=== PATIENT | male | born 1960 | race Caucasian/White ===

== ENCOUNTER → 2017-11-22 07:21 | Outpatient (CLI) | payer OTHER, SELFPAY ==
[2017-11-22 09:26] LABS: AST(SGOT) 21 U/L (15-37); Alanine Aminotransfer ALT/SGPT 28 U/L (12-78); Albumin, Serum 3.7 g/dL (3.4-5.0); Alkaline Phosphatase 93 U/L (45-117); Bilirubin, Direct 0.23 mg/dL (0.00-0.30); Cholesterol 158 mg/dL (200); Globulin 3.8 g/dL (2.2-4.2); High Density Lipoprotein 65 mg/dL; Protein, Total 7.5 g/dL (6.4-8.2); Triglycerides 61 mg/dL; Very Low Density Lipoprotein 12 mg/dL (5-40)
== END ==
PROVIDERS: Nurse Practitioner Family; Family Provider Family Medicine; PCP Family Medicine; Visit Provider Internal Medicine Cardiovascular Disease
DX: I25.810 Atherosclerosis of coronary artery bypass graft(s) without angina pectoris (principal); Z95.1 Presence of aortocoronary bypass graft; I10 Essential (primary) hypertension; E78.5 Hyperlipidemia, unspecified; Z79.899 Other long term (current) drug therapy
CPT/HCPCS: 36415; 80061; 80076

== ENCOUNTER → 2018-05-23 07:15 | Outpatient (CLI) | payer OTHER, SELFPAY ==
[2018-05-23 09:11] LABS: AST(SGOT) 23 U/L (15-37); Alanine Aminotransfer ALT/SGPT 26 U/L (16-61); Albumin, Serum 3.9 g/dL (3.2-5.0); Alkaline Phosphatase 86 U/L (45-117); Bilirubin, Direct 0.21 mg/dL (0.00-0.30); Cholesterol 164 mg/dL (200); High Density Lipoprotein 64 mg/dL; Protein, Total 7.9 g/dL (6.4-8.2); Triglycerides 50 mg/dL; Very Low Density Lipoprotein 10 mg/dL (5-40)
== END ==
PROVIDERS: Family Provider Family Medicine; PCP Family Medicine; Visit Provider Nurse Practitioner Family
DX: E78.5 Hyperlipidemia, unspecified (principal); Z79.899 Other long term (current) drug therapy
CPT/HCPCS: 36415; 80061; 80076

== ENCOUNTER → 2019-01-23 10:09 | Outpatient (CLI) | payer OTHER, SELFPAY ==
[2018-09-08 14:42] VITALS: BMI 22.2
--- NOTE | 2019-01-23 10:13 | RAD_ITS ---
STUDY: X-RAY - ABDOMEN/PELVIS REASON FOR EXAM: Male, 58 years old. Stool urgency with bloating for 2 weeks TECHNIQUE: Supine COMPARISON: 11/17/2015 FINDINGS: Surgical clips project over the cardiac silhouette. There is an unremarkable bowel gas pattern. There is [id number] fecal retention of the right more than left colon. There is no demonstrated free abdominal air. The visualized liver, spleen and kidneys are grossly normal in size and morphology. Vascular calcifications are noted. Similar levoscoliosis of the lumbar spine. RAD/Abdomen Single View IMPRESSION: Mild to moderate fecal retention. Nonobstructive bowel gas pattern. Electronically Signed: Ruiz Maciel MD at 16:34 EDT , Service support ,
== END ==
PROVIDERS: Family Provider Family Medicine; PCP Family Medicine; Referring Provider Family Medicine; Visit Provider Family Medicine
DX: R15.2 Fecal urgency (principal)
CPT/HCPCS: 74018

== ENCOUNTER → 2019-03-06 07:20 | Outpatient (CLI) | payer OTHER, SELFPAY ==
[2019-02-26 08:56] VITALS: BMI 21.2
[2019-03-06 09:10] LABS: AST(SGOT) 22 U/L (15-37); Alanine Aminotransfer ALT/SGPT 25 U/L (16-61); Albumin, Serum 3.7 g/dL (3.2-5.0); Alkaline Phosphatase 78 U/L (45-117); Bilirubin, Direct 0.24 mg/dL (0.00-0.30); Cholesterol 148 mg/dL (200); Globulin 3.6 g/dL (2.2-4.2); High Density Lipoprotein 62 mg/dL; Protein, Total 7.3 g/dL (6.4-8.2); Triglycerides 60 mg/dL; Very Low Density Lipoprotein 12 mg/dL (5-40)
== END ==
PROVIDERS: Family Provider Family Medicine; PCP Family Medicine; Referring Provider Internal Medicine Cardiovascular Disease; Visit Provider Internal Medicine Cardiovascular Disease
DX: E78.5 Hyperlipidemia, unspecified (principal)
CPT/HCPCS: 36415; 80061; 80076

== ENCOUNTER → 2019-03-11 06:06 | Outpatient (CLI) | payer OTHER, SELFPAY ==
[2019-02-26 08:56] VITALS: BMI 21.2
--- NOTE | 2019-03-11 10:01 | STRESSREP ---
Stress Test Report Date: 03-11-19 Procedure: Exercise tolerance test/imaging study Indications: CAD; CABG Consent: Per the patient Procedure: The patient exercised on a Luis protocol for 6 minutes completing Stage II achieving a peak heart rate of 164 bpm (101 % predicted maximal heart rate) with a peak blood pressure 194/72 mmHg and a peak MET capacity of 7 METs. The baseline ECG demonstrated normal sinus rhythm. The peak exercise ECG demonstrated no obvious ECG changes. There was a rare PVC during exercise and a rare PAC during recovery. The functional capacity was considered average. There was no complaint of chest discomfort during exercise or recovery. The examination was discontinued secondary to leg discomfort/back discomfort. Impression: 1. Technically adequate (percent predicted maximal heart rate greater than 85%) exercise tolerance test 2. Peak exercise ECG with no obvious ECG changes 3. There was a rare PVC during exercise and a rare PAC during recovery 4. Nuclear images pending Myocardial perfusion imaging study: Technique: The patient was injected with 11.4 mCi of technetium 99m Cardiolite and subsequently rest SPECT Cardiolite nuclear imaging was obtained in the horizontal long, vertical long, and short axis views. The patient exercised on a Luis protocol for 6 minutes completing Stage II achieving a peak heart rate of 164 bpm (101 % predicted maximal heart rate) with a peak blood pressure 194/72 mmHg and a peak MET capacity of 7 METs. The patient was injected with 33.1 mCi of technetium 99m Cardiolite and subsequently stress SPECT Cardiolite nuclear imaging was obtained in the horizontal long, vertical long, and short axis views. A gated Cardiolite study at peak stress was obtained. Interpretation: Rest and stress SPECT Cardiolite nuclear imaging status post realignment, normalization, and attenuation correction, demonstrates the appearance of relative uniform tracer uptake and myocardial perfusion appearing within normal limits. There is end systolic thickening and brightening. The gated Cardiolite study demonstrates myocardial thickening and inward wall motion. The reported LVEF is 64 %. Impression: 1. Rest and stress SPECT Cardiolite nuclear imaging demonstrate relative uniform tracer uptake and myocardial perfusion appearing within normal limits. 2. The gated Cardiolite study reports an LVEF of 64 %. This note was generated with [employer] software. It may contain incorrect words, spelling, and punctuation that were not noted in checking the note before signing.
--- NOTE | 2019-03-11 10:04 | STRESSREP_ITS ---
Stress Test Report Date: 03-11-19 Procedure: Exercise tolerance test/imaging study Indications: CAD; CABG Consent: Per the patient Procedure: The patient exercised on a Luis protocol for 6 minutes completing Stage II achieving a peak heart rate of 164 bpm (101 % predicted maximal heart rate) with a peak blood pressure 194/72 mmHg and a peak MET capacity of 7 METs. The baseline ECG demonstrated normal sinus rhythm. The peak exercise ECG demonstrated no obvious ECG changes. There was a rare PVC during exercise and a rare PAC during recovery. The functional capacity was considered average. There was no complaint of chest discomfort during exercise or recovery. The examination was discontinued secondary to leg discomfort/back discomfort. Impression: 1. Technically adequate (percent predicted maximal heart rate greater than 85%) exercise tolerance test 2. Peak exercise ECG with no obvious ECG changes 3. There was a rare PVC during exercise and a rare PAC during recovery 4. Nuclear images pending Myocardial perfusion imaging study: Technique: The patient was injected with 11.4 mCi of technetium 99m Cardiolite and subsequently rest SPECT Cardiolite nuclear imaging was obtained in the horizontal long, vertical long, and short axis views. The patient exercised on a Luis protocol for 6 minutes completing Stage II achieving a peak heart rate of 164 bpm (101 % predicted maximal heart rate) with a peak blood pressure 194/72 mmHg and a peak MET capacity of 7 METs. The patient was injected with 33.1 mCi of technetium 99m Cardiolite and subsequently stress SPECT Cardiolite nuclear imaging was obtained in the horizontal long, vertical long, and short axis views. A gated Cardiolite study at peak stress was obtained. Interpretation: Rest and stress SPECT Cardiolite nuclear imaging status post realignment, normalization, and attenuation correction, demonstrates the appearance of relative uniform tracer uptake and myocardial perfusion appearing within normal limits. There is end systolic thickening and brightening. The gated Cardiolite study demonstrates myocardial thickening and inward wall motion. The reported L VEF is 64 %. Impression: 1. Rest and stress SPECT Cardiolite nuclear imaging demonstrate relative uniform tracer uptake and myocardial perfusion appearing within normal limits. 2. The gated Cardiolite study reports an LVEF of 64 %. This note was generated with [employer] software. It may contain incorrect words, spelling, and punctuation that were not noted in checking the note before signing.
== END ==
PROVIDERS: Family Provider Family Medicine; PCP Family Medicine; Referring Provider Nurse Practitioner Family; Visit Provider Nurse Practitioner Family
DX: I25.10 Atherosclerotic heart disease of native coronary artery without angina pectoris (principal); I10 Essential (primary) hypertension; E78.5 Hyperlipidemia, unspecified; Z95.1 Presence of aortocoronary bypass graft
CPT/HCPCS: 78452; 93017; A9500; A4216

== ENCOUNTER → 2019-09-11 07:27 | Outpatient (CLI) | payer OTHER, SELFPAY ==
[2019-02-26 08:56] VITALS: BMI 21.2
[2019-09-11 08:26] LABS: AST(SGOT) 23 U/L (15-37); Alanine Aminotransfer ALT/SGPT 31 U/L (16-61); Albumin, Serum 3.8 g/dL (3.2-5.0); Alkaline Phosphatase 101 U/L (45-117); Bilirubin, Direct 0.19 mg/dL (0.00-0.30); Cholesterol 165 mg/dL (200); Globulin 3.9 g/dL (2.2-4.2); High Density Lipoprotein 64 mg/dL; Protein, Total 7.7 g/dL (6.4-8.2); Triglycerides 63 mg/dL; Very Low Density Lipoprotein 13 mg/dL (5-40)
== END ==
PROVIDERS: Family Provider Family Medicine; PCP Family Medicine; Referring Provider Internal Medicine Cardiovascular Disease; Visit Provider Internal Medicine Cardiovascular Disease
DX: E78.5 Hyperlipidemia, unspecified (principal)
CPT/HCPCS: 36415; 80061; 80076

== ENCOUNTER 2019-11-02 08:27 | Inpatient (IN) | payer OTHER, SELFPAY ==
[2019-09-16 11:38] VITALS: BMI 21.2
[2019-11-02] VITALS (10 sets, daily range): BP systolic 134–152; BP diastolic 72–89; PULSE 65–94; RESP 16–18; TEMP 36.5–36.9; O2SAT 96–98; BMI 20.7; BMI 20.8
--- NOTE | 2019-11-02 08:41 | ED.DCSUM_ITS ---
History of Present Illness Chief Complaint: Abd Pain Informant: Patient, Significant Other Onset: Days - Illness started 3 to 4 days ago. Context: Sudden Onset Timing: Continuous Quality: Subjective fever, chills, shortness of breath, cough and N/V Location: Home Current Severity: Mild Maximum Severity: Moderate Worsened by: Nothing Relieved by: Nothing Associated Symptoms: Lightheadedness, thirst and increased urine output Narrative: Patient is a 59-year-old male who presents with fever and chills that started 3 to 4 days ago. He reports nonproductive dry cough. He also reports shortness of breath at rest. He denies chest pain of any type including pleuritic. He states he had 3 bowel movements yesterday and did have a bowel movement today. He is not noted a change in color or consistency. States he is not going is much since he has not eaten in the last 4 days. He did report light sensitivity. Denies headache. Denies neck pain or neck stiffness. Does report nasal congestion. Denies any auditory symptoms. He denies dysuria or hematuria. He does have chronic low back pain. He believes he has lost 3 to 4 pounds over the last 4 days. states he has been losing weight gradually since bypass surgery 11 years ago. He reports weakness and fatigue. He denies intolerance to any type of food. He denies hematemesis, melena hematochezia. He denies history of bowel obstruction. Prior similar symptoms: No Recent Illness/Hospitalization: No - Past Medical History (1) COPD (chronic obstructive pulmonary disease) Status: Chronic (2) Essential hypertension Status: Chronic (3) Hyperlipidemia Status: Chronic (4) S/P CABG x 4 Status: Chronic Comment: 01/11/2010 KNOTT to LAD, EDYTA insitu to the RCA and SVG to DX, [facility] per Dr. Hernandez Past Medical History - Allergies and Home Meds Allergies/Adverse Reactions: Allergies ibuprofen [From Advil] Adverse Reaction (Intermediate, Verified 11/02/19 08:28) SOB Primary Care Physician: Rick Gaffney DO [Primary Care Provider] - Prior records reviewed: Yes Surgical History: coronary bypass surgery, - - Recent right wrist surgery Lives: Spouse/ Significant Other Smoking Status: Former smoker Alcohol: None Drugs: None Review of Systems General: Reports: Chills, Fever, Malaise, Subjective, Sweats, Weight loss Eyes: Denies: Visual changes - bilaterally, Blurred Vision - bilaterally ENT: Reports: Rhinorrhea. Denies: Sore throat Cardiovascular: Reports: Heart racing. Denies: Chest pain, Palpitations Respiratory: Reports: Dyspnea, Cough. Denies: Sputum, Dyspnea on exertion, Orthopnea, Paroxysmal nocturnal dyspnea Gastrointestinal: Reports: Abdominal pain, Nausea, Vomiting. Denies: Diarrhea, Constipation, Melena, Hematochezia Genitourinary: Reports: Frequency. Denies: Dysuria, Hematuria Musculoskeletal: Reports: Back pain. Denies: Myalgias, Arthralgias, Neck pain, Swelling, Extremity Pain, -, - Skin: Denies: Rash, Wounds Neurological: Denies: Headache, Weakness, Numbness Hematologic: Denies: Easy bruising, Easy bleeding Physical Exam Vital Signs/Narrative: Vital Signs Temp Pulse Resp BP Pulse Ox 11/02/19 08:29 97.7 F L 80 17 134/89 H 98 Inital Vital Signs reviewed: Yes General: Well nourished, Well developed, No Acute Distress, - - Camargo appears ill and very thin. Head: Normocephalic, Atraumatic Eyes: Perrl, EOMI. Negative for: Pale conjunctiva, Scleral icterus ENT: TM's clear, Dry mucous membranes, Nasal congestion. Negative for: No rh inorrhea, Sinus tenderness Neck: Supple, Nontender, No lymphadenopathy, No JVD Cardiovascular: Regular rate, Regular rhythm, No murmurs, Normal S1, Normal S2 Respiratory: CTA bilaterally, Chest nontender, Diminished Abdomen: Soft, Nontender, Nondistended - There is tympany to percussion., Normal bowel sounds, No masses. Negative for: Hepatomegaly, Splenomegaly, Mass, Pulsatile mass Back: Nontender, Normal Inspection Extremities: Nontender, No edema Skin: Normal color, No rash, No Trauma, - - Jennifer refill is delayed.. Negative for: Cyanosis, Diaphoresis, Jaundice Neurological: Alert, Oriented x3, Cranial nerves II-XII grossly intact, Normal Strength, Normal Sensation Psychological: Normal affect Diagnostic/Tx/Re-eval Impressions Chest X-Ray 11/02/19 09:05 IMPRESSION: Hyperinflation. No acute abnormality is seen. Electronically Signed: Johnson Dover, at 9:28 EST , Service support , 11/02/19 09:05 Chest PA and Lateral [RAD] Stat Laboratory Results 11/02/19 11/02/19 11/02/19 08:45 08:45 08:45 WBC 5.7 RBC 4.80 Hgb 15.3 Hct 42.7 MCV 89.0 MCH 31.9 MCHC 35.8 RDW Std Deviation 38.2 RDW Coeff of Murphy 11.8 Plt Count 198 MPV 9.8 Immature Gran % (Auto) 0.700 Neut % (Auto) 71.9 H Lymph % (Auto) 17.1 L Kent % (Auto) 9.9 Eos % (Auto) 0.2 Baso % (Auto) 0.2 Absolute Neuts (auto) 4.1 Absolute Lymphs (auto) 0.98 Nucleated RBC % 0 Sodium 119 L* Potassium 3.5 Chloride 85 L Carbon Dioxide 28.0 Anion Gap 6 BUN 7 Creatinine 0.84 Estim Creat Clear Calc 86.90 Est GFR (MDRD) Af Amer 119 Est GFR (MDRD) Non-Af 99 BUN/Creatinine Ratio 8.3 L Glucose 105 Serum Osmolality Lactic Acid 1.0 Calcium 9.2 Total Bilirubin 0.50 AST 28 ALT 31 Alkaline Phosphatase 111 Total Protein 8.2 Albumin 4.1 Globulin 4.1 Albumin/Globulin Ratio 1.0 TSH Cortisol 11/02/19 11/02/19 11/02/19 08:45 08:45 08:45 WBC RBC Hgb Hct MCV MCH MCHC RDW Std Deviation RDW Coeff of Murphy Plt Count MPV Immature Gran % (Auto) Neut % (Auto) Lymph % (Auto) Kent % (Auto) Eos % (Auto) Baso % (Auto) Absolute Neuts (auto) Absolute Lymphs (auto) Nucleated RBC % Sodium Potassium Chloride Carbon Dioxide Anion Gap BUN Creatinine Estim Creat Clear Calc Est GFR (MDRD) Af Amer Est GFR (MDRD) Non-Af BUN/Creatinine Ratio Glucose Serum Osmolality 247 L Lactic Acid Calcium Total Bilirubin AST ALT Alkaline Phosphatase Total Protein Albumin Globulin Albumin/Globulin Ratio TSH 0.82 Cortisol 31.00 H Osmolarity is pending. Since patient is symptomatic with a sodium of 119 hospitalist was paged for admission to the hospital. If urine osmolarity is low patient will need work-up for SIADH. - Medical Decision Making Patient reports cough, fever chills and malaise will obtain chest x-ray to assess for lower lobe pneumonia. Since patient is having bowel movements and passing gas doubt partial bowel obstruction. Abdominal exam is benign, as well. CBC was obtained to assess for anemia with reported weight loss night sweats for some time. Conference of metabolic panel to assess liver enzymes and specifically alkaline phosphatase as well as electrolytes and renal function. Because of the poor perfusion he received 1 L of normal saline wide open and 4 mg of Zofran IV push for his main complaint of nausea and vomiting. Differential diagnosis viral illness, lower lobe pneumonia, with increased thirst and urination need to entertain possibility of new onset diabetes. Informed by his nurse that the sodium is 119. Patient is not on a diuretic. Need to evaluate for SIADH and other causes of hyponatremia. Since patient complains of abdominal pain fatigue orthostatic symptoms has poor perfusion Lea's needs to be considered in the differential. By that patient is not on diuretic. He states he drank half a gallon of water yesterday. states is not uncommon for him to drink that much water. He states he does not drink pop etc. He also reports having 1 cup of coffee in the morning. ED Disposition - Plan for ED Patient: Disposition: Acute Care Hospital [facility] Diagnosis: Hyponatremia with decreased serum osmolality Referrals: Rick Gaffney DO [Primary Care Provider] -
[2019-11-02 08:56] LABS: Absolute Lymphocyte Count 0.98 X10^3/uL (0.83-4.51); Absolute Neutrophil Count 4.1 X10^3/uL (2.0-7.7); Basophil# 0.01 X10^3/uL; Basophil% 0.2 % (0-1); Eosinophil# 0.01 X10^3/uL; Eosinophils% 0.2 % (0-5); Hematocrit 42.7 % (40-54); Hemoglobin 15.3 g/dL (13.0-16.5); Lymphocyte # 0.98 X10^3/ul (4.0); Lymphocyte % 17.1 % (19-41); Mean Corp Hgb Conc 35.8 g/dL (32-36); Mean Corpuscular Hgb 31.9 pg (27.0-32.0); Mean Platelet Vol. 9.8 fl (6.2-12.0); Monocyte# 0.57 X10^3/uL; Monocyte% 9.9 % (0-10); NRBC Flagged by Analyzer 0 % (0-5); Neutrophil # 4.13 X10^3/uL (2.7-7.7); Neutrophil % 71.9 % (47-70); Platelet Count 198 K/mm3 (150-450); RBC Distribution Width CV 11.8 % (11.6-14.6); RBC Distribution Width SD 38.2 fl (35.1-43.9); White Blood Count 5.7 K/mm3 (4.4-11.0)
[2019-11-02] MEDS: 0.9% Normal Saline 1,000 ML 1000 ML IV (09:00)
[2019-11-02] MEDS: Ondansetron 4 MG/2 ML Vial IV ×2 (09:00→18:14)
--- NOTE | 2019-11-02 09:05 | RAD_ITS ---
STUDY: X-RAY CHEST REASON FOR EXAM: Male, 59 years old. NOT FEELING WELL FOR 6 DAYS PER PT -- ABD PAIN, N/V, FATUGUE TECHNIQUE: PA and lateral views of the chest. COMPARISON: Comparison is made with prior examination dated September 28, 2013. FINDINGS: Hyperinflation. Decreased bronchovascular markings in both lungs suggestive of a emphysema. Stable mild scarring at the lung bases. Stable blunting of the right costophrenic angle. Sternal cerclage wires and vascular clips are present from a prior sternotomy and coronary artery bypass graft procedure (CABG). Normal mediastinum and [place]. Normal visualized pulmonary arteries. There is atherosclerotic calcification of the aortic arch with tortuosity. There are diffuse degenerative changes of the visualized thoracic spine. Normal visualized ribs, clavicles, and shoulders. There is no demonstrated abnormality of the visualized soft tissue structures of the upper abdomen. RAD/Chest PA and Lateral IMPRESSION: Hyperinflation. No acute abnormality is seen. Electronically Signed: Johnson Dover, at 9:28 EST , Service support ,
[2019-11-02 09:22] LABS: AST(SGOT) 28 U/L (15-37); Alanine Aminotransfer ALT/SGPT 31 U/L (16-61); Albumin, Serum 4.1 g/dL (3.2-5.0); Alkaline Phosphatase 111 U/L (45-117); Anion Gap 6 (5-15); BUN 7 mg/dL (7-18); BUN/Creat Ratio 8.3 RATIO (10-20); Calcium,Total 9.2 mg/dL (8.5-10.1); Chloride 85 mmol/L (98-107); Creatinine, Serum 0.84 mg/dL (0.70-1.30); EST Glomerular Filtration Rate 99 mL/min (>60); Est Glom Filt Rate - Afr Amer 119 mL/min (>60); Globulin 4.1 g/dL (2.2-4.2); Glucose 105 mg/dL (74-106); Potassium 3.5 mmol/L (3.5-5.1); Protein, Total 8.2 g/dL (6.4-8.2); Sodium Level 119 mmol/L (136-145)
[2019-11-02 10:06] LABS: Thyroid Stim Hormone (TSH) 0.82 uIU/mL (0.358-3.74)
[2019-11-02 10:09] LABS: Osmolality, Serum 247 mOsm/KG (275-295)
--- NOTE | 2019-11-02 10:37 | NURSING ---
DR CEDILLO FOR DR AGRAWAL
--- NOTE | 2019-11-02 10:40 | NURSING ---
PCU HYPONATREMIA SYMPTOMATIC ASHELFAH
--- NOTE | 2019-11-02 11:50 | HP.PCM_ITS ---
Problem List (1) Hyponatremia with decreased serum osmolality Status: Acute (2) Hyperlipidemia Status: Chronic Qualifiers: Hyperlipidemia type: unspecified Qualified Code(s): E78.5 - Hyperlipidemia, unspecified (3) S/P CABG x 4 Status: Chronic Comment: 01/11/2010 KNOTT to LAD, EDYTA insitu to the RCA and SVG to DX, SVG to [facility] per Dr. Hernandez (4) Atherosclerotic heart disease of [place] coronary artery without angina pectoris Status: Chronic Qualifiers: [place] vs. transplanted heart: [place] heart Qualified Code(s): I25.10 - Atherosclerotic heart disease of [place] coronary artery without angina pectoris Comment: 01/11/2010 KNOTT to LAD, EDYTA insitu to the RCA and SVG to DX, SVG to [facility] per Dr. Hernandez History of Present Illness Date of Admission: 11/02/19 Chief Complaint: Weakness, fatigue The patient is a 59 year old M patient with past medical history as mentioned above presented to the emergency room because of weakness and fatigue as well as nausea and vomiting. His illness started around 6 days ago with mainly weakness, generalized, has been sleeping more than 15 hours a day, not able to do usual daily activities and it has been progressive. Since yesterday, he started having vague abdominal pain, described as mild ache, generalized, very mild, associated with nausea and vomiting as well as poor appetite and without aggravating or relieving factors. Patient's mentioned that he has been drinking too much water, he drinks around 1 gallon of water every day. He denied constipation or diarrhea. He denied fever or chills. He denied chest pain or shortness of breath. He denied personal or family history of cancer. He denied drinking alcohol. In the emergency department, his vital signs were stable. His routine blood work was remarkable for sodium of 119, otherwise normal. LFT was unremarkable. Lactic acid was normal. TSH was normal. Serum cortisol level was 31 which is elevated. He is being admitted for acute hyponatremia for evaluation and treatment. Past Medical History Past Medical History (Chronic Problems): Chronic Problems (Last Updated 11/02/19 @ 10:59 by Didier Schofield MD) Essential hypertension (Chronic) COPD (chronic obstructive pulmonary disease) (Chronic) Hyperlipidemia (Chronic) History of left heart catheterization (Chronic) 01/11/[address] Blair @ [facility]>CABG S/P CABG x 4 (Chronic ~01/11/10) 01/11/2010 KNOTT to LAD, EDYTA insitu to the RCA and SVG to DX, SVG to [facility] per Dr. Hernandez Atherosclerotic heart disease of [place] coronary artery without angina pectoris (Chronic) 01/11/2010 KNOTT to LAD, EDYTA insitu to the RCA and SVG to DX, SVG to [facility] per Dr. Hernandez Medical History: Medical History (Last Updated 11/02/19 @ 10:59 by Didier Schofield MD) Essential hypertension (Chronic) I10 COPD (chronic obstructive pulmonary disease) (Chronic) J44.9 Hyperlipidemia (Chronic) E78.5 Atherosclerotic heart disease of [place] coronary artery without angina pectoris (Chronic) I25.10 01/11/2010 KNOTT to LAD, EDYTA insitu to the RCA and [facility] Carotid bruit (Inactive) R09.89 Hypertension (Inactive) I10 Allergies ibuprofen [From Advil] Adverse Reaction (Intermediate, Verified 11/02/19 08:28) SOB Home Medications: Ambulatory Orders Medication Instructions Recorded aspirin 81 mg tablet,delayed 81 mg PO QDAY 11/29/17 release coenzyme Q10 100 mg capsule 100 mg PO QDAY 11/29/17 multivitamin 1 tab PO QDAY 11/29/17 omega-3 fatty acids 1,000 mg 1,000 mg PO QDAY 11/29/17 capsule atorvastatin 10 mg tablet 10 mg PO HS #90 tab 09/08/18 atenolol 25 mg tablet 25 mg PO QDAY #90 tab 11/17/18 meloxicam 15 mg tablet 15 mg PO DAILY 09/16/19 Surgical History: Surgical History (Last Reviewed 11/02/19 @ 11:53 by Didier Schofield MD) History of left heart catheterization (Chronic) Z98.890 01/11/[address] Blair @ [facility]>CABG S/P CABG x 4 (Chronic) Onset Date: ~01/11/10 Z95.1 01/11/2010 KNOTT to LAD, EDYTA insitu to the RCA and SVG to DX[facility] History of hand surgery Z98.890 History of tonsillectomy Z90.89 Surgical History: coronary bypass surgery, tonsillectomy, - Psychiatric History: No pertinent psych hx Lives: Spouse/ Significant Other Smoking Status: Former smoker Alcohol: None Drugs: None - *Family History Maternal Family History: Family History (Last Reviewed 11/02/19 @ 11:54 by Didier Schofield MD) Father CAD (coronary artery disease) S/P CABG (coronary artery bypass graft) Mother CAD (coronary artery disease) Hypertension Kidney disease Brother CAD (coronary artery disease) S/P CABG (coronary artery bypass graft) Sister S/P CABG (coronary artery bypass graft) CAD (coronary artery disease) Diabetes History Items: No pertinent history Paternal Family History: Family History (Last Reviewed 11/02/19 @ 11:54 by Didier Schofield MD) Father CAD (coronary artery disease) S/P CABG (coronary artery bypass graft) Mother CAD (coronary artery disease) Hypertension Kidney disease Brother CAD (coronary artery disease) S/P CABG (coronary artery bypass graft) Sister S/P CABG (coronary artery bypass graft) CAD (coronary artery disease) Diabetes Review of Systems Constitutional: Reports: Anorexia, Weakness, Fatigue. Denies: Chills, Fever Eyes: Denies: Blurred vision, Double vision, Drainage, Redness HEENT: Denies: Difficulty Hearing, Ear Pain, Eye Pain, Nasal Congestion, Sore Throat Cardiovascular: Denies: Chest Pain, Chest Pressure, Chest Tightness, Heaviness, Light Headedness, Palpitations, Syncope Respiratory: Denies: Cough, Hemoptysis, Pleuritic Pain, Shortness of Breath, Sputum production, Wheezing Gastrointestinal: Reports: Abdominal Pain, Nausea, Vomiting. Denies: Constipation, Diarrhea Genitourinary: Denies: Dysuria, Frequency, Hematuria Musculoskeletal: Denies: Arm Pain, Back Pain, Foot Pain Skin: Denies: Dryness, Rash Neurological: Denies: Balance problems, Double vision, Change in Speech, Slurred speech, Confusion, Headaches, Incoordination, Numbness, Tingling Psychiatric: Denies: Anxiety, Depression Endocrine: Denies: Change in Body Habitus, Polydipsia, Polyuria VTE Information - Inpt Only VTE Present on Admission: No VTE Mechan Device Prophylaxis: None VTE Pharm Prophylaxis ordered?: Yes Patient Problems: Active and Suspected Problems (Last Updated 11/02/19 @ 10:59 by Didier Schofield MD) Hyponatremia with decreased serum osmolality (Acute) - Physical Exam Vitals/I&O's: Vital Signs Temp Pulse Resp BP Pulse Ox 97.7 F L 80 18 134/89 H 98 11/02/19 08:29 11/02/19 08:29 11/02/19 10:40 11/02/19 08:29 11/02/19 08:29 Oxygen Delivery Method Room Air Weight: 144 lb 13.499 oz Body Mass Index (BMI) 20.7 Intake and Output for Last 24 Hours 10/31/19 11/01/19 11/02/19 23:59 23:59 23:59 Intake Total 1000 / 1000 Balance 1000 / 1000 General: Alert, Oriented x3, Cooperative, No apparent distress HEENT: Atraumatic, PERRLA, EOMI, Normocephalic Oral: Moist Mucosa, No Gingival or Mucosal Lesions/ Ulcerations Neck: Supple, No JVD, Negative Carotid Bruits, Trachea Midline, Thyroid Normal Size and Texture Lungs: Clear to auscultation, Normal air movement, No rhonchi, No wheeze, No rales Cardiovascular: Regular rate, Regular Rhythm, Normal S1, Normal S2, PMI Normal Abdomen: Bowel Sounds Present, Soft, Non Tender, Non-Distended, No Hepato- splenomegaly Extremities: No clubbing, No cyanosis, No edema Skin: No rashes, No breakdown Lymphatic: No Cervical, Supraclavicular, or Inguinal Adenopathy Neurological: Cranial nerves II-XII grossly intact, Motor Exam 5/5 strength throughout Psych/Mental Status: Normal Affect, Appropriate, Alert and oriented to time, place, person, mood and affect Laboratory Results 11/02/19 08:45: WBC 5.7, RBC 4.80, Hgb 15.3, Hct 42.7, MCV 89.0, MCH 31.9, MCHC 35.8, RDW Std Deviation 38.2, RDW Coeff of Murphy 11.8, Plt Count 198, MPV 9.8, Immature Gran % (Auto) 0.700, Neut % (Auto) 71.9 H, Lymph % (Auto) 17.1 L, [place] % (Auto) 9.9, Eos % (Auto) 0.2, Baso % (Auto) 0.2, Absolute Neuts (auto) 4.1, Absolute Lymphs (auto) 0.98, Nucleated RBC % 0 11/02/19 08:45: Sodium 119 L*, Potassium 3.5, Chloride 85 L, Carbon Dioxide 28.0, Anion Gap 6, BUN 7, Creatinine 0.84, Estim Creat Clear Calc 86.90, Est GFR (MDRD) Af Amer 119, Est GFR (MDRD) Non-Af 99, BUN/Creatinine Ratio 8.3 L, Glucose 105, Calcium 9.2, Total Bilirubin 0.50, AST 28, ALT 31, Alkaline Phosphatase 111, Total Protein 8.2, Albumin 4.1, Globulin 4.1, Albumin/Globulin Ratio 1.0 11/02/19 08:45: Lactic Acid 1.0 11/02/19 08:45: Cortisol 31.00 H 11/02/19 08:45: Serum Osmolality 247 L 11/02/19 08:45: TSH 0.82 11/02/19 08:45: Magnesium 2.0 Clinical Impression(s) from Imaging Studies Chest X-Ray 11/02/19 09:05 IMPRESSION: Hyperinflation. No acute abnormality is seen. Electronically Signed: Johnson Dover, at 9:28 EST , Service support , Current Medications Acetaminophen (Tylenol) 650 mg PO Q6H PRN PRN PRN Reason: Pain Score 1-3/Temp > 100.7 F Aspirin (Ecotrin) 81 mg PO QDAY ERICK Atenolol (Tenormin (Beta Mackenzie)) 25 mg PO QDAY ERICK Atorvastatin Calcium (Lipitor) 10 mg PO HS ERICK Enoxaparin Sodium (Lovenox) 40 mg SC DAILY ERICK Sodium Chloride () 1,000 mls @ 100 mls/hr IV .Q10H ERICK Ondansetron HCl (Zofran) 4 mg IV Q8H PRN PRN PRN Reason: NAUSEA/VOMITING Assessment/Plan All Active Problems (Last Updated 11/02/19 @ 10:59 by Didier Schofield MD) Hyponatremia with decreased serum osmolality (Acute) This is a 59 years old male patient presented to the emergency room because of weakness, fatigue, nausea and vomiting and he was found to have sodium of 119 and is being admitted for evaluation and treatment. #1 acute hyponatremia: Seems to be hypotonic hyponatremia as serum osmolality is low. Symptomatic without evidence of neurological involvement, no seizure. Patient seemed to be euvolemic. Serum osmolality is 247 which is low. Urine osmolality is pending. TSH was normal. Psychogenic polydipsia could be the etiology. Serum cortisol is actually elevated likely because of stress and acute illness. Plan: Admit to PCU, cardiac monitoring, IV fluids with normal saline, check urine sodium, urine calcium, urine creatinine, urine chloride, check serum magnesium, repeat BMP tomorrow morning. #2 CAD status post CABG: Stable, no acute issues. Continue aspirin, statins and atenolol. #3 hyperlipidemia: Continue statins. #4 DVT prophylaxis: Subcu Lovenox. This note was generated with [employer] dictation software. It may contain incorrect words, spelling, and punctuation that were not noted in checking the note before signing. Code Visit Inpatient E&M: 42870 Init Hosp L2
[2019-11-02] MEDS: 0.9% Saline Lock 10 ML Syringe IV (12:42)
[2019-11-02] MEDS: 0.9% Normal Saline 1,000 ML 100 ML IV ×2 (12:43→21:54)
[2019-11-02] MEDS: Acetaminophen 325 MG Tablet 650 MG PO ×2 (12:59→21:54)
[2019-11-02 14:18] LABS: Osmolality, Urine 291 mOsm/KG
[2019-11-02 14:26] LABS: Mucous, Urine 0 SEEN /hpf (<or=2+); Squamous Epithelial Cells - UA 0 SEEN /hpf (0-5); White Blood Cells 0 SEEN /hpf (0-5)
[2019-11-02 14:27] LABS: Color, Urine Yellow (Yellow); Glucose, Dipstick Normal (Normal); Ketone-Dipstick 50 mg/dl (Negative); Leukocyte Esterase-Dipstick Negative /ul (Negative); Nitrite-Dipstick Negative (Negative); Occult Blood-Urine 25 /ul (Negative); Protein-Dipstick Negative (Negative); Urine Bilirubin Dipstick Negative (Negative); Urine Clarity Clear (Clear); Urine Urobilinogen Normal (Normal)
[2019-11-02 14:33] LABS: Bacteria RARE /hpf (None Seen); Red Blood Cells-Urine 0-5 SEEN /hpf (0-5)
[2019-11-02 14:38] LABS: Urine Chloride 62 mmol/L (Not Establ.)
[2019-11-02 14:40] LABS: Urine Sodium 56 mmol/L (Not Establ.)
[2019-11-02 14:55] LABS: Calcium, Urine (Random) 7.1 mg/dL (Not Estab.)
--- NOTE | 2019-11-02 15:07 | CASEMGMT ---
Patient has a Healthcare LW and Healthcare POA on file at [facility]. Joan [employer]
[2019-11-02] MEDS: Atenolol 25 MG Tablet PO (15:45)
[2019-11-02] MEDS: traMADol 50 MG Tablet PO (16:33)
[2019-11-02] MEDS: Aspirin E.C. 81 MG Tablet PO (18:10)
[2019-11-02] MEDS: Atorvastatin Calcium 10 MG Tablet PO (21:54)
[2019-11-03] VITALS (10 sets, daily range): BP systolic 109–164; BP diastolic 73–82; PULSE 68–82; RESP 12–18; TEMP 36.6–36.8; O2SAT 97–99
[2019-11-03] MEDS: traMADol 50 MG Tablet PO ×3 (00:49→22:45)
[2019-11-03 06:34] LABS: BUN 4 mg/dL (7-18); BUN/Creat Ratio 6.2 RATIO (10-20); Calcium,Total 7.8 mg/dL (8.5-10.1); Creatinine, Serum 0.65 mg/dL (0.70-1.30); EST Glomerular Filtration Rate 134 mL/min (>60); Est Glom Filt Rate - Afr Amer 162 mL/min (>60); Estimated Creatinine Clearance 108.55 ml/min; Glucose 87 mg/dL (74-106); Sodium Level 123 mmol/L (136-145)
[2019-11-03 06:35] LABS: Anion Gap 7 (5-15); Chloride 89 mmol/L (98-107); Potassium 3.4 mmol/L (3.5-5.1)
[2019-11-03] MEDS: 0.9% Normal Saline 1,000 ML 100 ML IV (07:31)
[2019-11-03] MEDS: Atenolol 25 MG Tablet PO (08:22)
[2019-11-03] MEDS: Aspirin E.C. 81 MG Tablet PO (08:22)
--- NOTE | 2019-11-03 09:20 | PCM.CONS.R ---
Consultation - Renal 11/03/19 PCP/ Referring MD: Requesting physician: Dr Schofield Primary care physician: Rick Gaffney DO Reason for Consultation:: hyponatremia - History of Present Illness History of Present Illness: The patient is a 59 year old M presented to the emergency room for generalized weakness and fatigue since last . He did not feel well that he stayed home from work. 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 He complained of a cough with clear phlegm. Denied fever, chills, chest pain, or SOB. He felt like he had the flu with increased sleepiness, generalized weakness. Denied falls, unsteady gait. Appetite has been poor lately. He has a history of gradual wt loss over past 10 years. Sodium level was low at 119 on admit improved to 123. Sodium 133 in 2016. Urine sodium was 56,urine osmolarity 291. Creatinine stable at 0.65. TSH and am cortisol level were normal. Admits to drinking half gallon to gallon water a day. His sodium level has been slightly low at 133 in 2016. Denied diuretic therapy. PMH for CAD s/p CABG 10 years ago, tobacco use with COPD, emphysema. Quit smoking 10 years ago. Pt states two family members with low sodium issues. - Allergies Allergies: Allergies ibuprofen [From Advil] Adverse Reaction (Intermediate, Verified 11/02/19 08:28) SOB - Current Medications Current Medications: Current Medications Acetaminophen (Tylenol) 650 mg PO Q6H PRN PRN PRN Reason: Pain Score 1-3/Temp > 100.7 F Last Admin: 11/02/19 21:54 Dose: 650 mg Documented by: [facility] Last Admin: 11/03/19 08:22 Dose: 81 mg Documented by: Atenolol (Tenormin (Beta Mackenzie)) 25 mg PO DAILY [facility] Last Admin: 11/03/19 08:22 Dose: 25 mg Documented by: Atorvastatin Calcium (Lipitor) 10 mg PO QHS [facility] Last Admin: 11/02/19 21:54 Dose: 10 mg Documented by: Enoxaparin Sodium (Lovenox) 40 mg SC DAILY [facility] Last Admin: 11/03/19 08:22 Dose: Not Given Documented by: Ondansetron HCl (Zofran) 4 mg IV Q8H PRN PRN PRN Reason: NAUSEA/VOMITING Last Admin: 11/02/19 18:14 Dose: 4 mg Documented by: Sodium Chloride () 10 - 40 ml IV UD PRN PRN Reason: SALINE FLUSH Last Admin: 11/02/19 12:42 Dose: 10 ml Documented by: Tramadol HCl (Ultram) 50 mg PO Q8H PRN PRN PRN Reason: Pain Score 4-10/10 Last Admin: 11/03/19 00:49 Dose: 50 mg Documented by: - Past Medical History Past Medical History (Chronic Problems): Chronic Problems (Last Updated 11/02/19 @ 10:59 by Didier Schofield MD) Essential hypertension (Chronic) COPD (chronic obstructive pulmonary disease) (Chronic) Hyperlipidemia (Chronic) History of left heart catheterization (Chronic) 01/11/[address] Blair @ [facility]>CABG S/P CABG x 4 (Chronic ~01/11/10) 01/11/2010 KNOTT to LAD, EDYTA insitu to the RCA and SVG to DX, SVG to [facility] per Dr. Hernandez Atherosclerotic heart disease of [place] coronary artery without angina pectoris (Chronic) 01/11/2010 KNOTT to LAD, EDYTA insitu to the RCA and SVG to DX, SVG to [facility] per Dr. Hernandez - Past Surgical History Surgical History: coronary bypass surgery, tonsillectomy, - - Social History Smoking Status: Former smoker Alcohol: None Drugs: None - Family History Maternal Family History: Family History (Last Reviewed 11/02/19 @ 11:54 by Didier Schofield MD) Father CAD (coronary artery disease) S/P CABG (coronary artery bypass graft) Mother CAD (coronary artery disease) Hypertension Kidney disease Brother CAD (coronary artery disease) S/P CABG (coronary artery bypass graft) Sister S/P CABG (coronary artery bypass graft) CAD (coronary artery disease) Diabetes History Items: No pertinent history Paternal Family History: Family History (Last Reviewed 11/02/19 @ 11:54 by Didier Schofield MD) Father CAD (coronary artery disease) S/P CABG (coronary artery bypass graft) Mother CAD (coronary artery disease) Hypertension Kidney disease Brother CAD (coronary artery disease) S/P CABG (coronary artery bypass graft) Sister S/P CABG (coronary artery bypass graft) CAD (coronary artery disease) Diabetes Review of Systems Constitutional: Reports: Anorexia, Malaise, Weakness, Fatigue. Denies: Chills, Fever Eyes: Denies: Vision Change HEENT: Denies: Head Aches Cardiovascular: Denies: Chest Pain Respiratory: Reports: Cough. Denies: Wheezing Gastrointestinal: Reports: Nausea, Vomiting. Denies: Abdominal Pain, Constipation, Diarrhea Genitourinary: Denies: Dysuria Musculoskeletal: Reports: - - gen weakness Skin: Denies: Rash Neurological: Denies: Balance problems, Tremor, Seizures Psychiatric: Denies: Anxiety, Depression Hematologic/ Lymphatic: Denies: Anemia Patient Problems: Active and Suspected Problems (Last Updated 11/02/19 @ 10:59 by Didier Schofield MD) Hyponatremia with decreased serum osmolality (Acute) - Physical Exam Vitals/I&O's: Vital Signs Temp Pulse Resp BP Pulse Ox 97.9 F 82 18 135/73 H 98 11/03/19 04:00 11/03/19 07:00 11/03/19 04:00 11/03/19 04:00 11/03/19 08:00 Oxygen Delivery Method Room Air Weight: 63.5 kg Body Mass Index (BMI) 20.0 Intake and Output for Last 24 Hours 11/01/19 11/02/19 11/03/19 23:59 23:59 23:59 Intake Total 2875.00 / 2875.00 1248.33 / 1248.33 Output Total 2 / 2 Balance 2873.00 / 2873.00 1248.33 / 1248.33 General: Alert, Oriented x3, Cooperative, No apparent distress Oral: Moist Mucosa Neck: Supple, No JVD, - - no cervical, axillary LN Lungs: Clear to auscultation, No rales, Diminished Cardiovascular: Regular rate Abdomen: Bowel Sounds Present, Soft, Non Tender, Non-Distended Extremities: No edema Neurological: Cranial nerves II-XII grossly intact Psych/Mental Status: Normal Affect, Appropriate, Alert and oriented to time, place, person, mood and affect Laboratory Results 11/02/19 08:45: Sodium 119 L*, Potassium 3.5, Chloride 85 L, Carbon Dioxide 28.0, Anion Gap 6, BUN 7, Creatinine 0.84, Estim Creat Clear Calc 86.90, Est GFR (MDRD) Af Amer 119, Est GFR (MDRD) Non-Af 99, BUN/Creatinine Ratio 8.3 L, Glucose 105, Calcium 9.2, Total Bilirubin 0.50, AST 28, ALT 31, Alkaline Phosphatase 111, Total Protein 8.2, Albumin 4.1, Globulin 4.1, Albumin/Globulin Ratio 1.0 11/02/19 08:45: Lactic Acid 1.0 11/02/19 08:45: Cortisol 31.00 H 11/02/19 08:45: Serum Osmolality 247 L 11/02/19 08:45: TSH 0.82 11/02/19 08:45: Magnesium 2.0 11/02/19 13:45: Urine Osmolality 291 11/02/19 13:45: Ur Random Calcium 7.1 11/02/19 13:45: Urine Creatinine 56.90 11/02/19 13:45: Urine Color Yellow, Urine Clarity Clear, Urine pH 7.0, Ur Specific [place] 1.010, Urine Protein Negative, Urine Glucose (UA) Normal, Urine Ketones 50 H, Urine Occult Blood 25 H, Urine Nitrite Negative, Urine Bilirubin Negative, Urine Urobilinogen Normal, Ur Leukocyte Esterase Negative, Urine RBC 0-5 SEEN, Urine WBC 0 SEEN, Ur Squamous Epith Cells 0 SEEN, Urine Bacteria RARE, Urine Mucus 0 SEEN 11/02/19 13:45: Urine Chloride 62 11/02/19 13:45: Ur Random Sodium 56 11/03/19 05:35: Sodium 123 L, Potassium 3.4 L, Chloride 89 L, Carbon Dioxide 27.0, Anion Gap 7, BUN 4 L, Creatinine 0.65 L, Estim Creat Clear Calc 108.55, Est GFR (MDRD) Af Amer 162, Est GFR (MDRD) Non-Af 134, BUN/Creatinine Ratio 6.2 L, Glucose 87, Calcium 7.8 L Clinical Impression(s) from Imaging Studies Chest X-Ray 11/02/19 09:05 IMPRESSION: Hyperinflation. No acute abnormality is seen. Electronically Signed: Johnson Dover, at 9:28 EST , Service support , Current Medications Acetaminophen (Tylenol) 650 mg PO Q6H PRN PRN PRN Reason: Pain Score 1-3/Temp > 100.7 F Last Admin: 11/02/19 21:54 Dose: 650 mg Documented by: [facility] Last Admin: 11/03/19 08:22 Dose: 81 mg Documented by: Atenolol (Tenormin (Beta Mackenzie)) 25 mg PO DAILY [facility] Last Admin: 11/03/19 08:22 Dose: 25 mg Documented by: Atorvastatin Calcium (Lipitor) 10 mg PO QHS [facility] Last Admin: 11/02/19 21:54 Dose: 10 mg Documented by: Enoxaparin Sodium (Lovenox) 40 mg SC DAILY [facility] Last Admin: 11/03/19 08:22 Dose: Not Given Documented by: Ondansetron HCl (Zofran) 4 mg IV Q8H PRN PRN PRN Reason: NAUSEA/VOMITING Last Admin: 11/02/19 18:14 Dose: 4 mg Documented by: Sodium Chloride () 10 - 40 ml IV UD PRN PRN Reason: SALINE FLUSH Last Admin: 11/02/19 12:42 Dose: 10 ml Documented by: Tramadol HCl (Ultram) 50 mg PO Q8H PRN PRN PRN Reason: Pain Score 4-10/10 Last Admin: 11/03/19 00:49 Dose: 50 mg Documented by: Assessment/Plan All Active Problems (Last Updated 11/02/19 @ 10:59 by Didier Schofield MD) Hyponatremia with decreased serum osmolality (Acute) 1. Hyponatremia duration, chronicity unknown. Last serum sodium 133 in 2015, 119 on admit to 123 today with poor appetite, flu-like symptoms. Urine sodium 56 osmolarity 291 suggestive of SIADH. TSH, am cortisol level normal. Pt with increased fluid intake from half gallon to a gallon a day. Advised fluid restriction 1500cc/day on discharge to home. May need tolvaptan if sodium drops with fluid restriction. Suggest PTHrp, CT chest r/o occult malignancy with history of COPD, emphysema, cough with tobacco use history, quit 10 years ago. Repeat sodium later today. Tolvaptan 15mg if sodium drops further. 2. CAD s/p CABG euvolemic on exam 3. COPD, emphysema, tobacco use hx 4. HTN stable
--- NOTE | 2019-11-03 10:15 | CASEMGMT ---
RN CM Assessment Introduced role of RN CM to patient and patient Bettina. Patient noted up walking unit hallways by self independently without assistive device and steady gait prior to this writer technical publications entering patient room to complete assessment.? Patient is alert, oriented and able?to participate in RN CM Assessment. ?Care providers, pharmacy, and demographics verified. Presentation: Weakness, Fatigue, N/v Admit Dx: Acute hyponatremia Re-Admit: No Barriers/Issues: None. Patient still works. PCP: Rick Gaffney Specialists: Cardio- Dr Blair Preferred Pharmacy: [facility] Insurance: MMO Rx Benefit: Yes? ?LNOK: Bettina Rivera LW/HPOA: Yes both on file at [facility]. HPOA- Bettina Living Arrangements:? Lives with in a 2SH, Bedroom on [facility], 1 step to enter home ADL?s: Independent with ambulation and ADLs Transportation: Both patient and drive, denies transportation issues/concerns DME: None HHC: None SNF: None Goal: Home and does not think will have any needs upon DC. Denies any issues, concerns or questions with DC planning at this time. Aware CM remains available for any emerging needs. DC PLAN: Home with no anticipated needs identified at this time. TYLER Mosqueda
--- NOTE | 2019-11-03 10:24 | CT_ITS ---
STUDY: CT CHEST WITH CONTRAST REASON FOR EXAM: Male, 59 years old. SIADH /SMOKING HX. Hx of COPD, HTN and HLD. Pt is weak and fatigued RADIATION DOSAGE (If Supplied By Facility): CTDIvol = ( 10.00 ) mGy, DLP = ( 266.22 ) mGycm TECHNIQUE: Transaxial imaging was performed following intravenous administration of IV 100mL Isovue-300. Multiplanar coronal and sagittal images were reformatted. Individualized dose optimization techniques were used for this CT. COMPARISON: Comparison is made with prior examination dated July 21, 2010. FINDINGS: There is a small right pleural effusion with underlying right basilar atelectasis. Bolus changes are seen in the upper lobes worse on the right side as well as in the left lower lobe. There are calcifications of the coronary arteries. Sternal cerclage wires and vascular clips are present from a prior sternotomy and coronary artery bypass graft procedure (CABG). Normal mediastinum. Normal hilar regions. Normal enhanced pulmonary arteries. There is atherosclerotic calcification of the aortic arch . There are multi-level degenerative changes of the thoracic spine. There is no demonstrated abnormality of the visualized upper abdomen. CT/Chest WITH Contrast IMPRESSION: Small right pleural effusion with right basilar atelectasis. Emphysematous changes in the upper lobes as well as in the left lower lobe. Electronically Signed: Johnson Dover, at 15:37 EST , Service support ,
--- NOTE | 2019-11-03 11:49 | PN_ITS ---
Patient Problems: Active and Suspected Problems (Last Updated 11/02/19 @ 10:59 by Didier Schofield MD) Hyponatremia with decreased serum osmolality (Acute) Subjective: Chief complaint: Follow-up after admission for acute hyponatremia. Patient seen and examined. No acute events overnight. He complained of insomnia, could not sleep last night. Still having some nausea, weakness and fatigue minimally improved. Denied abdominal pain, diarrhea or constipation. His vitals are stable. - Physical Exam Vitals/I&O's: Vital Signs Temp Pulse Resp BP Pulse Ox 98.0 F 72 12 147/77 H 98 11/03/19 10:15 11/03/19 10:15 11/03/19 10:15 11/03/19 10:15 11/03/19 10:15 Oxygen Delivery Method Room Air Weight: 139 lb 15.896 oz Body Mass Index (BMI) 20.0 Intake and Output for Last 24 Hours 11/01/19 11/02/19 11/03/19 23:59 23:59 23:59 Intake Total 2875.00 / 2875.00 1248.33 / 1248.33 Output Total 2 / 2 Balance 2873.00 / 2873.00 1248.33 / 1248.33 General: Alert, Oriented x3, Cooperative, No apparent distress HEENT: Atraumatic, PERRLA, EOMI, Normocephalic Oral: Moist Mucosa, No Gingival or Mucosal Lesions/ Ulcerations Neck: Supple, No JVD, Negative Carotid Bruits, Trachea Midline, Thyroid Normal Size and Texture Lungs: Normal air movement, No rhonchi, No wheeze, No rales Cardiovascular: Regular rate, Regular Rhythm, Normal S1, Normal S2, No murmurs, PMI Normal Abdomen: Bowel Sounds Present, Soft, Non Tender, Non-Distended, No Hepato- splenomegaly Extremities: No clubbing, No cyanosis, No edema Skin: No rashes, No breakdown Lymphatic: No Cervical, Supraclavicular, or Inguinal Adenopathy Neurological: Cranial nerves II-XII grossly intact, Motor Exam 5/5 strength throughout Psych/Mental Status: Normal Affect, Appropriate, Alert and oriented to time, place, person, mood and affect Laboratory Results 11/02/19 13:45: Urine Osmolality 291 11/02/19 13:45: Ur Random Calcium 7.1 11/02/19 13:45: Urine Creatinine 56.90 11/02/19 13:45: Urine Color Yellow, Urine Clarity Clear, Urine pH 7.0, Ur Specific Bath 1.010, Urine Protein Negative, Urine Glucose (UA) Normal, Urine Ketones 50 H, Urine Occult Blood 25 H, Urine Nitrite Negative, Urine Bilirubin Negative, Urine Urobilinogen Normal, Ur Leukocyte Esterase Negative, Urine RBC 0-5 SEEN, Urine WBC 0 SEEN, Ur Squamous Epith Cells 0 SEEN, Urine Bacteria RARE, Urine Mucus 0 SEEN 11/02/19 13:45: Urine Chloride 62 11/02/19 13:45: Ur Random Sodium 56 11/03/19 05:35: Sodium 123 L, Potassium 3.4 L, Chloride 89 L, Carbon Dioxide 27.0, Anion Gap 7, BUN 4 L, Creatinine 0.65 L, Estim Creat Clear Calc 108.55, Est GFR (MDRD) Af Amer 162, Est GFR (MDRD) Non-Af 134, BUN/Creatinine Ratio 6.2 L, Glucose 87, Calcium 7.8 L Current Medications Acetaminophen (Tylenol) 650 mg PO Q6H PRN PRN PRN Reason: Pain Score 1-3/Temp > 100.7 F Last Admin: 11/02/19 21:54 Dose: 650 mg Documented by: Alprazolam (Xanax) 0.5 mg PO BID PRN PRN PRN Reason: ANXIETY/INSOMNIA [facility] Last Admin: 11/03/19 08:22 Dose: 81 mg Documented by: Atenolol (Tenormin (Beta Mackenzie)) 25 mg PO DAILY [facility] Last Admin: 11/03/19 08:22 Dose: 25 mg Documented by: Atorvastatin Calcium (Lipitor) 10 mg PO QHS [facility] Last Admin: 11/02/19 21:54 Dose: 10 mg Documented by: Enoxaparin Sodium (Lovenox) 40 mg SC DAILY [facility] Last Admin: 11/03/19 08:22 Dose: Not Given Documented by: Ondansetron HCl (Zofran) 4 mg IV Q8H PRN PRN PRN Reason: NAUSEA/VOMITING Last Admin: 11/02/19 18:14 Dose: 4 mg Documented by: Sodium Chloride () 10 - 40 ml IV UD PRN PRN Reason: SALINE FLUSH Last Admin: 11/02/19 12:42 Dose: 10 ml Documented by: Tramadol HCl (Ultram) 50 mg PO Q8H PRN PRN PRN Reason: Pain Score 4-08/06 Last Admin: 11/03/19 09:41 Dose: 50 mg Documented by: Zolpidem Tartrate (Ambien (Generic)) 5 mg PO QHS PRN PRN PRN Reason: INSOMNIA Medical Necessity - Tobacco Use Smoking Status: Former smoker Assessment/Plan All Active Problems (Last Updated 11/02/19 @ 10:59 by Didier Schofield MD) Hyponatremia with decreased serum osmolality (Acute) This is a 59 years old male patient presented to the emergency room because of weakness, fatigue, nausea and vomiting and he was found to have sodium of 119 and is being admitted for evaluation and treatment. #1 acute hyponatremia: Seems to be hypotonic hyponatremia as serum osmolality is low. Urine osmolality is high, serum sodium is 56. 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 Primary polydipsia is unlikely because of elevated urine osmolality with high urine sodium. Patient has been on IV normal saline, sodium improved to 123 today. Today's potassium is 3.4, magnesium is normal. Nephrology consulted. Because patient had a history of prior smoking, CT scan chest with contrast indicated to rule out malignancy. Plan: DC IV fluids, fluid restriction to less than 1500 cc daily, repeat BMP tomorrow morning, CT chest with IV contrast, PTH related peptide. #2 CAD status post CABG: Stable, no acute issues. Continue aspirin, statins and atenolol. #3 hyperlipidemia: Continue statins. #4 DVT prophylaxis: Subcu Lovenox. This note was generated with [employer] dictation software. It may contain incorrect words, spelling, and punctuation that were not noted in checking the note before signing. Code Visit Inpatient E&M: 40847 Subs Hosp L2
[2019-11-03 15:59] LABS: Anion Gap 5 (5-15); BUN 6 mg/dL (7-18); Calcium,Total 8.6 mg/dL (8.5-10.1); Chloride 93 mmol/L (98-107); Creatinine, Serum 0.67 mg/dL (0.70-1.30); EST Glomerular Filtration Rate 129 mL/min (>60); Est Glom Filt Rate - Afr Amer 156 mL/min (>60); Estimated Creatinine Clearance 105.31 ml/min; Glucose 103 mg/dL (74-106); Potassium 4.1 mmol/L (3.5-5.1); Sodium Level 123 mmol/L (136-145)
[2019-11-03] MEDS: TOLVAPTAN 15 MG TABLET PO (18:13)
[2019-11-03] MEDS: Atorvastatin Calcium 10 MG Tablet PO (20:47)
[2019-11-03] MEDS: Zolpidem Tartrate 5 MG Tablet PO (22:45)
[2019-11-04 03:05] VITALS: BP 144/81; PULSE 86; RESP 16; TEMP 36.8; O2SAT 99
[2019-11-04 04:10] VITALS: PULSE 75
[2019-11-04 06:39] LABS: Albumin, Serum 3.6 g/dL (3.2-5.0); BUN 7 mg/dL (7-18); BUN/Creat Ratio 9.7 RATIO (10-20); Calcium,Total 8.7 mg/dL (8.5-10.1); Chloride 97 mmol/L (98-107); Creatinine, Serum 0.72 mg/dL (0.70-1.30); EST Glomerular Filtration Rate 118 mL/min (>60); Est Glom Filt Rate - Afr Amer 142 mL/min (>60); Estimated Creatinine Clearance 97.99 ml/min; Glucose 90 mg/dL (74-106); Potassium 4.1 mmol/L (3.5-5.1); Sodium Level 128 mmol/L (136-145)
[2019-11-04 07:00] VITALS: PULSE 69
[2019-11-04 08:25] VITALS: O2SAT 96
[2019-11-04] MEDS: Aspirin E.C. 81 MG Tablet PO (08:37)
[2019-11-04] MEDS: Atenolol 25 MG Tablet PO (08:37)
[2019-11-04 09:05] VITALS: BP 142/96; PULSE 97; RESP 14; TEMP 36.5; O2SAT 97
--- NOTE | 2019-11-04 12:03 | DCINST_ITS ---
- Discharge Diagnoses Current Active Problems: Current Active and Chronic Problems (Last Updated 11/02/19 @ 10:59 by Didier Schofield MD) Hyponatremia with decreased serum osmolality (Acute) You will use the following diet at home:: Calorie/Carbohydrate Controlled (specify 1200, 1400, etc), Fluid restricted (specify 2000 mls, 1500 mls) - Less than 1500 cc daily Your food should be the consistency of: Regular Discharge Activity: Return to Normal Activity Weight Bearing Status: Weight bearing as tolerated Call your doctor if you observe: Fever of 101 or Higher, Shortness of breath, Dizziness, Fainting spells, Swelling in the ankles, Increased palpitations (irregular heartbeat), Uncontrolled pain Allergies/Adverse Reactions: Allergies ibuprofen [From Advil] Adverse Reaction (Intermediate, Verified 11/02/19 08:28) SOB Medications to take at Discharge aspirin 81 mg tablet,delayed release 81 mg PO QDAY 11/29/17 coenzyme Q10 100 mg capsule 100 mg PO QDAY 11/29/17 multivitamin 1 tab PO QDAY 11/29/17 omega-3 fatty acids 1,000 mg capsule 1,000 mg PO QDAY 11/29/17 atorvastatin 10 mg tablet 10 mg PO HS #90 tab 09/08/18 atenolol 25 mg tablet 25 mg PO QDAY #90 tab 11/17/18 meloxicam 15 mg tablet 15 mg PO PRN PRN 09/16/19 Orders to be completed after discharge: Basic Metabolic Profile (BMP) Time Frame: 11/09/19, Facility: [facility], Location: Laboratory Primary Care Physician: Rick Gaffney DO [Primary Care Provider] - Please follow up with your Primary Care Physician in: 2 weeks. Test Results: Test results from this visit will be discussed in further detail at your follow- up appointment, if applicable. Please Follow Up With: Judy Guan DO When: 1 week.
--- NOTE | 2019-11-04 12:17 | PHA.DC.MR ---
Pharmacy Service has performed discharge medication reconciliation for this patient. Home Medications aspirin 81 mg tablet,delayed release 81 mg PO QDAY 11/29/17 coenzyme Q10 100 mg capsule 100 mg PO QDAY 11/29/17 multivitamin 1 tab PO QDAY 11/29/17 omega-3 fatty acids 1,000 mg capsule 1,000 mg PO QDAY 11/29/17 atorvastatin 10 mg tablet 10 mg PO HS #90 tab 09/08/18 atenolol 25 mg tablet 25 mg PO QDAY #90 tab 11/17/18 meloxicam 15 mg tablet 15 mg PO PRN PRN 09/16/19 The patient's discharge medication list was reviewed for discrepancies and discrepancies were resolved.
[2019-11-04 12:51] VITALS: BP 124/77; PULSE 81; RESP 16; TEMP 36.5; O2SAT 97
--- NOTE | 2019-11-04 13:26 | PCM.DC.SUM ---
Discharge Date and Diagnosis Date of Admission: 11/02/19 Date of Discharge: 11/04/19 - Primary Discharge Diagnosis Active and Suspected Problems (Last Updated 11/02/19 @ 10:59 by Didier Schofield MD) Hyponatremia attributed to SIADH. - Secondary Discharge Diagnosis Chronic Problems (Last Updated 11/02/19 @ 10:59 by Didier Schofield MD) Essential hypertension (Chronic) COPD (chronic obstructive pulmonary disease) (Chronic) Hyperlipidemia (Chronic) History of left heart catheterization (Chronic) 01/11/[address] Blair @ [facility]>CABG S/P CABG x 4 (Chronic ~01/11/10) 01/11/2010 KNOTT to LAD, EDYTA insitu to the RCA and SVG to DX, SVG to [facility] per Dr. Hernandez Atherosclerotic heart disease of [place] coronary artery without angina pectoris (Chronic) 01/11/2010 KNOTT to LAD, EDYTA insitu to the RCA and SVG to DX, SVG to [facility] per Dr. Hernandez [facility] Course and Treatment Imaging Results: Clinical Impression(s) from Imaging Studies Chest X-Ray 11/02/19 09:05 IMPRESSION: Hyperinflation. No acute abnormality is seen. Electronically Signed: Johnson Dover, at 9:28 EST , Service support , Chest CT 11/03/19 10:24 IMPRESSION: Small right pleural effusion with right basilar atelectasis. Emphysematous changes in the upper lobes as well as in the left lower lobe. Electronically Signed: Johnson Dover, at 15:37 EST , Service support , Dr. Guan, nephrology. Operations: None Procedures: None Summary of Care Provided: Patient seen and examined on the day of discharge and appeared to be stable to be discharged home. He has no complaints and he feels better. His vital signs are stable. The patient is a 59 year old M patient presented to the emergency room because of weakness, fatigue with nausea and vomiting and he was found to have acute hyponatremia. On admission, his sodium was 119. Work-up done and patient was found to have low blood osmolality, high last possibility, high urine sodium with euvolemic versus hypervolemic status and this is consistent with SIADH. He was treated with IV normal saline and fluid restriction and his sodium level improved. Nephrology consulted and patient received 1 dose of tolvaptan. TSH was normal. Serum cortisol baseline was elevated and rule out adrenal insufficiency. Because patient is a former smoker, CT chest done to rule out occult malignancy and showed no evidence of lung masses or nodules. There was no other symptoms or signs suggestive of malignancy somewhere else other than the chest. His sodium improved and went up to 128 mmol/L upon discharge. Patient symptoms improved. He was discharged home in a stable medical condition, continued on his previous medications without any changes, recommended fluid restriction to less than 1500 cc daily, order performed to repeat BMP this coming Saturday and follow-up with nephrology in 1 week, recommended follow-up with PCP in 2 weeks. - Physical Exam Vitals/I&O's: Vital Signs Temp Pulse Resp BP Pulse Ox 97.7 F L 81 16 124/77 H 97 11/04/19 12:51 11/04/19 12:51 11/04/19 12:51 11/04/19 12:51 11/04/19 12:51 Oxygen Delivery Method Room Air Weight: 139 lb 15.896 oz Body Mass Index (BMI) 20.0 Intake and Output for Last 24 Hours 11/02/19 11/03/19 11/04/19 23:59 23:59 23:59 Intake Total 2875.00 / 2875.00 2148.33 / 2148.33 200 / 200 Output Total 2 / 2 Balance 2873.00 / 2873.00 2148.33 / 2148.33 200 / 200 General: Alert, Oriented x3, Cooperative, No apparent distress HEENT: Atraumatic, PERRLA, EOMI, Normocephalic Oral: Moist Mucosa, No Gingival or Mucosal Lesions/ Ulcerations Neck: Supple, No JVD, Negative Carotid Bruits, Trachea Midline, Thyroid Normal Size and Texture Lungs: Clear to auscultation, Normal air movement, No rhonchi, No wheeze, No rales Cardiovascular: Regular rate, Regular Rhythm, Normal S1, Normal S2, PMI Normal Abdomen: Bowel Sounds Present, Soft, Non Tender, Non-Distended, No Hepato-splenomegaly Extremities: No clubbing, No cyanosis, No edema Skin: No rashes, No breakdown Lymphatic: No Cervical, Supraclavicular, or Inguinal Adenopathy Neurological: Cranial nerves II-XII grossly intact, Neuro grossly intact Psych/Mental Status: Normal Affect, Appropriate Laboratory Results 11/03/19 15:20: Sodium 123 L, Potassium 4.1, Chloride 93 L, Carbon Dioxide 25.0, Anion Gap 5, BUN 6 L, Creatinine 0.67 L, Estim Creat Clear Calc 105.31, Est GFR (MDRD) Af Amer 156, Est GFR (MDRD) Non-Af 129, BUN/Creatinine Ratio 9.0 L, Glucose 103, Calcium 8.6 11/04/19 05:42: Sodium 128 L, Potassium 4.1, Chloride 97 L, Carbon Dioxide 25.0, BUN 7, Creatinine 0.72, Estim Creat Clear Calc 97.99, Est GFR (MDRD) Af Amer 142, Est GFR (MDRD) Non-Af 118, BUN/Creatinine Ratio 9.7 L, Glucose 90, Calcium 8.7, Phosphorus 3.0, Albumin 3.6 11/04/19 05:42: Miscellaneous Test Pending Current Medications Acetaminophen (Tylenol) 650 mg PO Q6H PRN PRN PRN Reason: Pain Score 1-3/Temp > 100.7 F Last Admin: 11/02/19 21:54 Dose: 650 mg Documented by: Alprazolam (Xanax) 0.5 mg PO BID PRN PRN PRN Reason: ANXIETY/INSOMNIA [facility] Last Admin: 11/04/19 08:37 Dose: 81 mg Documented by: Atenolol (Tenormin (Beta Mackenzie)) 25 mg PO DAILY [facility] Last Admin: 11/04/19 08:37 Dose: 25 mg Documented by: Atorvastatin Calcium (Lipitor) 10 mg PO QHS [facility] Last Admin: 11/03/19 20:47 Dose: 10 mg Documented by: Enoxaparin Sodium (Lovenox) 40 mg SC DAILY [facility] Last Admin: 11/04/19 08:34 Dose: Not Given Documented by: Ondansetron HCl (Zofran) 4 mg IV Q8H PRN PRN PRN Reason: NAUSEA/VOMITING Last Admin: 11/02/19 18:14 Dose: 4 mg Documented by: Sodium Chloride () 10 - 40 ml IV UD PRN PRN Reason: SALINE FLUSH Last Admin: 11/02/19 12:42 Dose: 10 ml Documented by: Tramadol HCl (Ultram) 50 mg PO Q8H PRN PRN PRN Reason: Pain Score 4-10/10 Last Admin: 11/03/19 22:45 Dose: 50 mg Documented by: Zolpidem Tartrate (Ambien (Generic)) 5 mg PO QHS PRN PRN PRN Reason: INSOMNIA Last Admin: 11/03/19 22:45 Dose: 5 mg Documented by: Discharge Activity: Return to Normal Activity Weight Bearing Status: Weight bearing as tolerated Call your doctor if you observe: Fever of 101 or Higher, Shortness of breath, Dizziness, Fainting spells, Swelling in the ankles, Increased palpitations (irregular heartbeat), Uncontrolled pain Home Medications: Medications to take at Discharge aspirin 81 mg tablet,delayed release 81 mg PO QDAY 11/29/17 coenzyme Q10 100 mg capsule 100 mg PO QDAY 11/29/17 multivitamin 1 tab PO QDAY 11/29/17 omega-3 fatty acids 1,000 mg capsule 1,000 mg PO QDAY 11/29/17 atorvastatin 10 mg tablet 10 mg PO HS #90 tab 09/08/18 atenolol 25 mg tablet 25 mg PO QDAY #90 tab 11/17/18 meloxicam 15 mg tablet 15 mg PO PRN PRN 09/16/19 Other Amb Orders: Basic Metabolic Profile (BMP) Time Frame: 11/09/19, Facility: [facility], Location: Laboratory Primary Care Physician: Rick Gaffney DO [Primary Care Provider] - Please follow up with your Primary Care Physician in: 2 weeks. Please Follow Up With: Judy Guan DO When: 1 week. Disposition: Home Minutes spent on discharge:: 27 Patient Condition:: Stable Medical Necessity - Tobacco Use Smoking Status: Former smoker Meaningful Use Info Meaningful Use Diagnoses (Choose all that apply): None applicable Code Visit Inpatient E&M: 12339 Disch Hosp
--- NOTE | 2019-11-05 15:01 | CASEMGMT ---
AMRIK LEHMAN Discharge Follow-Up Phone Call. Desire: Ingrid Strata: 3 Discharge Date: 11-04-19 Adm Dx: Acute Hyponatremia Call to pt to inquire about how he has been doing since being discharged from the hospital. Pt states he is much better. He states he was able to make an appt with Dr Guan for Saturday the and is aware of the appt with Dr Gaffney on the and labs due on the . He stated, The staff there was real nice. I sure appreciated the nurses and the staff. They made an unpleasant experience a pleasant one. The nurse, Ivory, was super. She needs an A+. AMRIK LEHMAN thanked pt for the positive feedback. He denies having any questions about the discharge instructions and denies needs. AMRIK LEHMAN thanked pt for choosing [facility]. Pt thanked AMRIK LEHMAN for calling to check on how is doing. July CHRISTIANSEN RN, CM
== END 2019-11-04 14:22 | disposition home or self-care (01) | DRG 645 ==
LOC: ED 10:10 → PCU 11:11
PROVIDERS: Internal Medicine Nephrology; Admitting Provider Hospitalist; Emergency Provider Emergency Medicine; Family Provider Family Medicine; PCP Family Medicine; Referring Provider Hospitalist; Visit Provider Hospitalist
DX: E22.2 Syndrome of inappropriate secretion of antidiuretic hormone (principal); E78.5 Hyperlipidemia, unspecified; I25.10 Atherosclerotic heart disease of native coronary artery without angina pectoris; I10 Essential (primary) hypertension; J44.9 Chronic obstructive pulmonary disease, unspecified; Z87.891 Personal history of nicotine dependence; Z95.1 Presence of aortocoronary bypass graft
CPT/HCPCS: 36415; 71046; 71260; 80048; 80053; 80069; 81001; 82340; 82436; 82533; 82570; 83605; 83735; 83930; 83935; 84300; 84443; 85025; 99284; J7030; Q9967; A4216; J2405

== ENCOUNTER → 2019-11-09 14:05 | Outpatient (CLI) | payer OTHER, SELFPAY ==
[2019-11-09 16:03] LABS: Anion Gap 2 (5-15); BUN 14 mg/dL (7-18); BUN/Creat Ratio 13.7 RATIO (10-20); Calcium,Total 8.8 mg/dL (8.5-10.1); Chloride 98 mmol/L (98-107); Creatinine, Serum 1.02 mg/dL (0.70-1.30); EST Glomerular Filtration Rate 79 mL/min (>60); Est Glom Filt Rate - Afr Amer 96 mL/min (>60); Glucose 88 mg/dL (74-106); Potassium 4.1 mmol/L (3.5-5.1); Sodium Level 131 mmol/L (136-145)
== END ==
PROVIDERS: Hospitalist; Family Provider Family Medicine; PCP Family Medicine; Referring Provider Internal Medicine; Visit Provider Internal Medicine Nephrology
DX: E87.1 Hypo-osmolality and hyponatremia (principal)
CPT/HCPCS: 36415; 80048

== ENCOUNTER 2019-11-30 16:33 | Outpatient (RCR) | payer OTHER, SELFPAY ==
[2019-11-30 18:07] LABS: Anion Gap 5 (5-15); BUN 16 mg/dL (7-18); BUN/Creat Ratio 18.4 RATIO (10-20); Calcium,Total 9.2 mg/dL (8.5-10.1); Chloride 98 mmol/L (98-107); Creatinine, Serum 0.87 mg/dL (0.70-1.30); EST Glomerular Filtration Rate 95 mL/min (>60); Est Glom Filt Rate - Afr Amer 115 mL/min (>60); Glucose 74 mg/dL (74-106); PSA,Total - Annual Screen 1.07 ng/mL (0.00-4.00); Potassium 4.1 mmol/L (3.5-5.1); Sodium Level 131 mmol/L (136-145)
== END 2019-11-30 18:00 | disposition home or self-care (01) ==
LOC: LAB 16:33
PROVIDERS: PCP Family Medicine; Referring Provider Family Medicine; Visit Provider Family Medicine
DX: E22.2 Syndrome of inappropriate secretion of antidiuretic hormone (principal); Z12.5 Encounter for screening for malignant neoplasm of prostate
CPT/HCPCS: 36415; 80048; 84153; G0103

== ENCOUNTER 2019-12-29 07:55 | Outpatient (RCR) | payer OTHER, SELFPAY ==
[2019-12-29 08:46] LABS: Anion Gap 5 (5-15); BUN 10 mg/dL (7-18); BUN/Creat Ratio 11.5 RATIO (10-20); Calcium,Total 8.8 mg/dL (8.5-10.1); Chloride 97 mmol/L (98-107); Creatinine, Serum 0.87 mg/dL (0.70-1.30); EST Glomerular Filtration Rate 95 mL/min (>60); Est Glom Filt Rate - Afr Amer 115 mL/min (>60); Glucose 132 mg/dL (74-106); Potassium 3.8 mmol/L (3.5-5.1); Sodium Level 132 mmol/L (136-145)
== END 2019-12-29 18:00 | disposition home or self-care (01) ==
LOC: LAB 07:55
PROVIDERS: PCP Family Medicine; Referring Provider Internal Medicine Nephrology; Visit Provider Internal Medicine Nephrology
DX: E22.2 Syndrome of inappropriate secretion of antidiuretic hormone (principal)
CPT/HCPCS: 36415; 80048

== ENCOUNTER 2020-01-29 09:33 | Outpatient (RCR) | payer OTHER, SELFPAY ==
[2020-01-29 10:11] LABS: Anion Gap 3 (5-15); BUN 13 mg/dL (7-18); BUN/Creat Ratio 15.7 RATIO (10-20); Calcium,Total 9.2 mg/dL (8.5-10.1); Chloride 100 mmol/L (98-107); Creatinine, Serum 0.83 mg/dL (0.70-1.30); EST Glomerular Filtration Rate 101 mL/min (>60); Est Glom Filt Rate - Afr Amer 122 mL/min (>60); Glucose 68 mg/dL (74-106); Sodium Level 134 mmol/L (136-145)
== END 2020-02-25 18:00 | disposition home or self-care (01) ==
LOC: LAB 09:33
PROVIDERS: PCP Family Medicine; Referring Provider Internal Medicine Nephrology; Visit Provider Internal Medicine Nephrology
DX: E22.2 Syndrome of inappropriate secretion of antidiuretic hormone (principal)
CPT/HCPCS: 36415; 80048

== ENCOUNTER 2020-02-29 07:28 | Outpatient (RCR) | payer OTHER, SELFPAY ==
[2020-02-29 08:50] LABS: AST(SGOT) 20 U/L (15-37); Alanine Aminotransfer ALT/SGPT 24 U/L (16-61); Albumin, Serum 3.7 g/dL (3.2-5.0); Alkaline Phosphatase 86 U/L (45-117); Anion Gap 3 (5-15); BUN 9 mg/dL (7-18); BUN/Creat Ratio 11.6 RATIO (10-20); Bilirubin, Direct 0.19 mg/dL (0.00-0.30); Calcium,Total 8.9 mg/dL (8.5-10.1); Chloride 96 mmol/L (98-107); Cholesterol 158 mg/dL (200); Creatinine, Serum 0.78 mg/dL (0.70-1.30); EST Glomerular Filtration Rate 108 mL/min (>60); Est Glom Filt Rate - Afr Amer 131 mL/min (>60); Globulin 3.7 g/dL (2.2-4.2); Glucose 88 mg/dL (74-106); High Density Lipoprotein 60 mg/dL; Potassium 3.9 mmol/L (3.5-5.1); Protein, Total 7.4 g/dL (6.4-8.2); Sodium Level 129 mmol/L (136-145); Triglycerides 61 mg/dL
[2020-02-29 08:51] LABS: Very Low Density Lipoprotein 12 mg/dL (5-40)
== END 2020-02-29 18:00 | disposition home or self-care (01) ==
LOC: LAB 07:28
PROVIDERS: Internal Medicine Cardiovascular Disease; PCP Family Medicine; Referring Provider Internal Medicine Nephrology; Visit Provider Internal Medicine Nephrology
DX: E22.2 Syndrome of inappropriate secretion of antidiuretic hormone (principal)
CPT/HCPCS: 36415; 80048; 80061; 80076

== ENCOUNTER 2020-03-30 07:33 | Outpatient (RCR) | payer OTHER, SELFPAY ==
[2020-03-17 08:27] VITALS: BMI 21.8
[2020-03-30 11:04] LABS: Anion Gap 7 (5-15); BUN 11 mg/dL (7-18); BUN/Creat Ratio 13.8 RATIO (10-20); Calcium,Total 8.8 mg/dL (8.5-10.1); Chloride 98 mmol/L (98-107); EST Glomerular Filtration Rate 105 mL/min (>60); Est Glom Filt Rate - Afr Amer 127 mL/min (>60); Glucose 137 mg/dL (74-106); Potassium 3.8 mmol/L (3.5-5.1); Sodium Level 134 mmol/L (136-145)
== END 2020-03-30 18:00 | disposition home or self-care (01) ==
LOC: LAB 07:33
PROVIDERS: PCP Family Medicine; Referring Provider Internal Medicine Nephrology; Visit Provider Internal Medicine Nephrology
DX: E22.2 Syndrome of inappropriate secretion of antidiuretic hormone (principal)
CPT/HCPCS: 36415; 80048

== ENCOUNTER 2020-05-11 07:41 | Outpatient (RCR) | payer OTHER, SELFPAY ==
[2020-03-17 08:27] VITALS: BMI 21.8
[2020-05-11 08:24] LABS: Anion Gap 6 (5-15); BUN 12 mg/dL (7-18); BUN/Creat Ratio 14.2 RATIO (10-20); Calcium,Total 8.7 mg/dL (8.5-10.1); Chloride 98 mmol/L (98-107); Creatinine, Serum 0.84 mg/dL (0.70-1.30); EST Glomerular Filtration Rate 98 mL/min (>60); Est Glom Filt Rate - Afr Amer 119 mL/min (>60); Glucose 110 mg/dL (74-106); Sodium Level 132 mmol/L (136-145)
== END 2020-05-11 18:00 | disposition home or self-care (01) ==
LOC: LAB 07:41
PROVIDERS: PCP Family Medicine; Referring Provider Internal Medicine Nephrology; Visit Provider Internal Medicine Nephrology
DX: E22.2 Syndrome of inappropriate secretion of antidiuretic hormone (principal)
CPT/HCPCS: 36415; 80048

== ENCOUNTER → 2020-08-09 07:40 | Outpatient (CLI) | payer OTHER, SELFPAY ==
[2020-03-17 08:27] VITALS: BMI 21.8
[2020-08-09 10:10] LABS: Anion Gap 6 (5-15); BUN 12 mg/dL (7-18); BUN/Creat Ratio 12.9 RATIO (10-20); Calcium,Total 8.9 mg/dL (8.5-10.1); Chloride 99 mmol/L (98-107); Creatinine, Serum 0.93 mg/dL (0.70-1.30); EST Glomerular Filtration Rate 87 mL/min (>60); Est Glom Filt Rate - Afr Amer 106 mL/min (>60); Glucose 101 mg/dL (74-106); Potassium 3.8 mmol/L (3.5-5.1); Sodium Level 133 mmol/L (136-145)
== END ==
PROVIDERS: PCP Family Medicine; Referring Provider Internal Medicine Nephrology; Visit Provider Internal Medicine Nephrology
DX: E22.2 Syndrome of inappropriate secretion of antidiuretic hormone (principal)
CPT/HCPCS: 36415; 80048

== ENCOUNTER 2020-11-10 07:30 | Outpatient (RCR) | payer OTHER, SELFPAY ==
[2020-03-17 08:27] VITALS: BMI 21.8
[2020-11-10 09:03] LABS: Anion Gap 4 (5-15); BUN 11 mg/dL (7-18); BUN/Creat Ratio 12.3 RATIO (10-20); Calcium,Total 8.9 mg/dL (8.5-10.1); Chloride 98 mmol/L (98-107); EST Glomerular Filtration Rate 92 mL/min (>60); Est Glom Filt Rate - Afr Amer 111 mL/min (>60); Glucose 118 mg/dL (74-106); Sodium Level 131 mmol/L (136-145)
== END 2020-11-10 18:00 | disposition home or self-care (01) ==
LOC: LAB 07:30
PROVIDERS: PCP Family Medicine; Referring Provider Internal Medicine Nephrology; Visit Provider Internal Medicine Nephrology
DX: E22.2 Syndrome of inappropriate secretion of antidiuretic hormone (principal)
CPT/HCPCS: 36415; 80048

== ENCOUNTER → 2020-12-02 07:16 | Outpatient (CLI) | payer OTHER, SELFPAY ==
[2020-03-17 08:27] VITALS: BMI 21.8
[2020-12-02 08:44] LABS: AST(SGOT) 26 U/L (15-37); Alanine Aminotransfer ALT/SGPT 29 U/L (16-61); Albumin, Serum 3.8 g/dL (3.2-5.0); Alkaline Phosphatase 92 U/L (45-117); Bilirubin, Direct 0.24 mg/dL (0.00-0.30); Cholesterol 163 mg/dL (200); Globulin 3.9 g/dL (2.2-4.2); High Density Lipoprotein 63 mg/dL; Protein, Total 7.7 g/dL (6.4-8.2); Triglycerides 62 mg/dL; Very Low Density Lipoprotein 12 mg/dL (5-40)
== END ==
PROVIDERS: PCP Family Medicine; Referring Provider Internal Medicine Cardiovascular Disease; Visit Provider Internal Medicine Cardiovascular Disease
DX: E78.00 Pure hypercholesterolemia, unspecified (principal); E78.5 Hyperlipidemia, unspecified
CPT/HCPCS: 36415; 80061; 80076

== ENCOUNTER 2021-02-08 09:15 | Outpatient (RCR) | payer OTHER, SELFPAY ==
[2020-03-17 08:27] VITALS: BMI 21.8
[2020-12-12 10:02] VITALS: BMI 21.9
[2021-02-08 10:37] LABS: Anion Gap 4 (5-15); BUN 11 mg/dL (7-18); BUN/Creat Ratio 13.6 RATIO (10-20); Calcium,Total 9.1 mg/dL (8.5-10.1); Chloride 97 mmol/L (98-107); Creatinine, Serum 0.81 mg/dL (0.70-1.30); EST Glomerular Filtration Rate 103 mL/min (>60); Est Glom Filt Rate - Afr Amer 125 mL/min (>60); Glucose 54 mg/dL (74-106); Potassium 4.4 mmol/L (3.5-5.1); Sodium Level 131 mmol/L (136-145)
== END 2021-02-08 18:00 | disposition home or self-care (01) ==
LOC: LAB 09:15
PROVIDERS: PCP Family Medicine; Referring Provider Internal Medicine Nephrology; Visit Provider Internal Medicine Nephrology
DX: E22.2 Syndrome of inappropriate secretion of antidiuretic hormone (principal)
CPT/HCPCS: 36415; 80048

== ENCOUNTER → 2021-07-10 12:49 | Outpatient (CLI) | payer OTHER, SELFPAY | PROVIDERS: PCP Family Medicine; Referring Provider Physician Assistant Surgical; Visit Provider Physician Assistant Surgical | DX: Z11.52 Encounter for screening for COVID-19 (principal) | CPT/HCPCS: 87635; U0005; U0003 ==

== ENCOUNTER → 2021-07-17 16:56 | Outpatient (CLI) | payer OTHER, SELFPAY ==
--- NOTE | 2021-07-17 17:05 | RAD_ITS ---
STUDY: X-RAY CHEST REASON FOR EXAM: Male, 61 years old. Cough, hyponatremia TECHNIQUE: PA and lateral views of the chest. COMPARISON: None. FINDINGS: Lungs are hyperexpanded with chronic interstitial changes but no superimposed acute pulmonary process. There is no demonstrated pleural abnormality. Sternal cerclage wires and vascular clips are present from a prior sternotomy and coronary artery bypass graft procedure (CABG). Normal mediastinum and [place]. Normal visualized pulmonary arteries. There is atherosclerotic calcification of the aortic arch with tortuosity. There are diffuse degenerative changes of the visualized thoracic spine. Normal visualized ribs, clavicles, and shoulders. There is no demonstrated abnormality of the visualized soft tissue structures of the upper abdomen. RAD/Chest PA and Lateral IMPRESSION: Mildly hyperexpanded lungs without a superimposed acute pulmonary process Electronically Signed: Rey Rose MD at 17:13 EDT , Service support ,
== END ==
PROVIDERS: PCP Family Medicine; Visit Provider Family Medicine
DX: R05 Cough (principal)
CPT/HCPCS: 71046

== ENCOUNTER → 2021-07-19 10:29 | Outpatient (CLI) | payer OTHER, SELFPAY ==
[2021-07-19 12:36] LABS: Anion Gap 6 (5-15); BUN 8 mg/dL (7-18); BUN/Creat Ratio 10.1 RATIO (10-20); Calcium,Total 8.8 mg/dL (8.5-10.1); Chloride 86 mmol/L (98-107); Creatinine, Serum 0.79 mg/dL (0.70-1.30); EST Glomerular Filtration Rate 105 mL/min (>60); Est Glom Filt Rate - Afr Amer 128 mL/min (>60); Glucose 86 mg/dL (74-106); Potassium 3.8 mmol/L (3.5-5.1); Sodium Level 122 mmol/L (136-145)
[2021-07-19 12:42] LABS: Urine Sodium 45 mmol/L (Not Establ.)
[2021-07-19 13:08] LABS: Osmolality, Urine 347 mOsm/KG
== END ==
PROVIDERS: PCP Family Medicine; Visit Provider Internal Medicine Nephrology
DX: E87.1 Hypo-osmolality and hyponatremia (principal)
CPT/HCPCS: 36415; 80048; 83935; 84300

== ENCOUNTER 2021-07-19 16:01 | Emergency (ER) | payer OTHER, SELFPAY ==
[2021-07-19 16:01] VITALS: BP 140/83; PULSE 69; RESP 18; TEMP 36.4; O2SAT 98; BMI 21.1
--- NOTE | 2021-07-19 16:39 | EKG12_ITS ---
Test Reason : ABN LABS Blood Pressure : / mmHG Vent. Rate : 060 BPM Atrial Rate : 060 BPM P-R Int : 152 ms QRS Dur : 098 ms QT Int : 412 ms P-R-T Axes : -18 066 050 degrees QTc Int : 412 ms Normal sinus rhythm Normal ECG Confirmed by DARIA RODRIGUEZ, SIRISHA ([id number]), supervising editor trailer JANES LUDWIG ([id number]) on 07/21/2021 1:09:41 PM Referred By: JOSE ALEJANDRO/ALEJANDRO Confirmed By:JULIO HUFF MD
--- NOTE | 2021-07-19 16:40 | EDS_ITS ---
HPI History of Present Illness Chief Complaint: Abn Labs Detail of Chief Complaint: Low-sodium Informant: patient Narrative Narrative: Patient presents to the emergency department complaint of low sodium. Patient states that he had a illness about 10 days ago that started with cough and sore throat. Patient at that time had a negative Covid test. He was seen by his primary care physician 2 days ago and had some blood work and a chest x- ray. Chest x-ray was unremarkable. Patient more than a week ago was started on a Z-Palmer for the bronchitis. Patient is not on any diuretics. He complains of generalized fatigue. Patient states that he had a similar episode of low sodium about 19 months ago. At that time patient had a work-up to rule out malignancy and his scans were unremarkable and no malignancies were found. Patient has seen Dr. Guan for his low sodium. 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 Prior similar symptoms: Yes [facility] Medical History (Updated 07/19/21 @ 18:[address] Spencer Lara, DO) Atherosclerotic heart disease of [place] coronary artery without angina pectoris Carotid bruit COPD (chronic obstructive pulmonary disease) Essential hypertension History of [facility] Hyperlipidemia Hypertension Home Medications aspirin 81 mg tablet,delayed release 81 mg PO QDAY 11/29/17 [History Last Taken 10/31/19] coenzyme Q10 100 mg capsule 100 mg PO QDAY 11/29/17 [History Last Taken 11/01/19] multivitamin 1 tab PO QDAY 11/29/17 [History Last Taken 11/01/19] omega-3 fatty acids 1,000 mg capsule 1,000 mg PO QDAY 11/29/17 [History Last Taken 11/01/19] atenolol 25 mg tablet 25 mg PO QDAY #90 tab 11/24/20 [Rx Last Taken Unknown] atorvastatin 10 mg tablet 5 mg PO HS #90 tab 06/02/21 [Rx Last Taken Unknown] azithromycin 250 mg tablet See Rx Instructions PO .COMPLEX #6 tab 07/10/21 [Rx Last Taken Unknown] Allergy/AdvReac Type Severity Reaction Status Date / Time ibuprofen [From Advil] AdvReac Intermediate SOB Verified 07/19/21 16:03 Family History Father CAD (coronary artery disease) S/P CABG (coronary artery bypass graft) Mother CAD (coronary artery disease) Hypertension Kidney disease Brother CAD (coronary artery disease) S/P CABG (coronary artery bypass graft) Sister S/P CABG (coronary artery bypass graft) CAD (coronary artery disease) Diabetes Surgical History History of hand surgery History of left heart catheterization History of tonsillectomy S/P CABG x 4 (~01/11/10) Social History Smoking Status: Former smoker quit date: 10/28/09 pack-years: 30 ROS ROS ED Constitutional Constitutional ED: Reports systems reviewed and no addt'l complaints, except as documented; Denies body ache(s), change in weight or chills Eyes Eyes: Denies acute decrease in peripheral vision, change in vision, double vision or loss of vision ENT ENT ED: Reports none; Denies ear pain, lip swelling, loss taste/smell, neck pain, otalgia or sore throat Cardiovascular Cardiovascular: Reports none; Denies abdominal pain, chest pain with activity, leg edema, lightheadedness, palpitations, rapid heart rate or syncope Respiratory/Chest Respiratory/Chest: Reports none and cough; Denies change in mental status, dry cough, dyspnea, hemoptysis, shortness of breath at rest or shortness of breath with exertion Gastrointestinal Gastrointestinal: Reports none; Denies abdominal pain, change in stool character, diarrhea, hematemesis, hematochezia, melena, rectal bleeding or vomiting Genitourinary Genitourinary ED: Reports none; Denies abdominal discomfort, anuria, dysuria, genital pain or polyuria Musculoskeletal Musculoskeletal: Reports none; Denies arthralgias, back pain, difficulty walking, extremity pain, muscle weakness or myalgias Integumentary Reports none; Denies abscess or rash Neurologic Neurologic: Reports none and weakness; Denies abnormal gait, confusion, focal weakness, frequent falls, headache(s), loss of vision, numbness, paresthesias, radicular pain or vertigo Psychiatric Psychiatric: Reports systems reviewed and no addt'l complaints, except as documented and none; Denies behavioral changes, confusion, difficulty concentrating, hallucinations, suicidal ideation, tactile hallucinations or visual hallucinations Endocrine Endocrinology: Denies none, cold intolerance, excessive sweating, fatigue or heat intolerance Hematologic/Lymphatic Hematologic/Lymphatic: Reports none; Denies anemia, easy bleeding or easy bruising Allergic/Immunologic Allergic/Immunologic ED: Denies as per HPI, none, lip swelling, mouth swelling, throat swelling, tongue swelling or hives EXAM Physical Exam Const Vital Signs: 07/19/21 16:01 07/19/21 16:36 07/19/21 17:29 Temperature 97.5 F L Temperature Source Temporal Pulse Rate 69 62 Respiratory Rate 18 16 Respiratory Effort Normal Non-Labored Respiratory Pattern Normal Blood Pressure 140/83 H Blood Pressure Mean 102 Pulse Ox 98 98 Oxygen Delivery Method Room Air Room Air Positive well nourished and well developed General Appearance ED: well developed and NAD HEENT Reports TM's clear and moist mucous membranes normocephalic and atraumatic; Negative for trauma or tenderness Tympanic Membrane ED: Yes TM's clear Eyes PERRL and EOMs intact bilaterally General Eye ED: Negative for pale conjunctiva or scleral icterus Neck no lymphadenopathy, supple and no JVD General: Negative for tenderness Chest Wall inspection of chest normal and palpation of chest normal Chest: Negative for tenderness Resp normal respiratory effort and clear to auscultation bilaterally Effort and Inspection: Negative for respiratory distress or pain with movement Auscultation: Negative for rhonchi, wheezes or diminished lung sounds Cardio regular rate, regular rhythm, S1 normal heart sound, S2 normal heart sound and no murmurs Peripheral Pulses: pulses 2+ throughout GI normal to inspection, nondistended, normoactive bowel sounds, soft to palpation, non-tender, non-distended and no masses Back/Spine no CVA tenderness and no thoracic nor lumbar tenderness Extremity normal to inspection General Extremety ED: Negative for edema General Extremity: Negative for edema Neuro oriented x3, CN's II-XII intact bilaterally, no sensory deficits noted and gait normal Sensorium / Orientation: awake, alert, oriented to person, oriented to place and oriented to time Motor Exam: strength 5/5 throughout and strength abnormal Psych mental status grossly normal Skin no rashes or lesions noted and no wounds MDM MDM MDM Narrative Medical decision making narrative: Patient sodium now up to 124. Patient received a liter mostly of fluid bolus. Case was discussed with nephrology Dr. Guan who knows the patient. At this point he is trending in the direction to normalization and do not feel patient requires admission. Dr. Guan was in [place] [facility]. She asked that he follow-up with his office in several days to have a repeat sodium performed. Patient advised to return if increased weakness, vomiting, or conditions worsen anyway. Etiology of his hyponatremia is unclear at this time. Patient not on diuretics. Lab Data Attestation: I reviewed the patient's lab results. Labs: Laboratory Results - last 24 hr 07/19/21 07/19/21 16:30 16:30 WBC 8.6 RBC 4.36 L Hgb 13.8 Hct 39.6 L MCV 90.8 MCH 31.7 MCHC 34.8 RDW Std Deviation 39.8 RDW Coeff of Murphy 11.9 Plt Count 243 MPV 9.8 Immature Gran % (Auto) 0.600 Neut % (Auto) 70.7 H Lymph % (Auto) 18.0 L Dillon % (Auto) 8.4 Eos % (Auto) 1.7 Baso % (Auto) 0.6 Absolute Neuts (auto) 6.1 Absolute Lymphs (auto) 1.55 Nucleated RBC % 0 Sodium 124 L Potassium 4.2 Chloride 91 L Carbon Dioxide 28.0 Anion Gap 5 BUN 11 Creatinine 0.80 Estim Creat Clear Calc 87.84 Est GFR (MDRD) Af Amer 126 Est GFR (MDRD) Non-Af 104 BUN/Creatinine Ratio 13.7 Glucose 92 Calcium 8.8 Magnesium 2.2 EKG Initial EKG: Attestation: I personally reviewed and interpreted this EKG as follows: Comments: Sinus rhythm with a ventricular rate of 60 bpm with no acute ST segment changes Discharge Plan Triage Chief Complaint: Abn Labs ED Provider: Spencer Lara Dx/Rx/DC Orders Clinical Impression: Acute hyponatremia Instructions: ED Hyponatremia Prescriptions: No Action coenzyme Q10 [Co Q-10] 100 mg capsule 100 mg PO QDAY RF: 0 aspirin [Adult Aspirin Regimen] 81 mg tablet,delayed release (DR/EC) 81 mg PO QDAY RF: 0 omega-3 fatty acids [Fish Oil Concentrate] 1,000 mg capsule 1,000 mg PO QDAY RF: 0 multivitamin tablet 1 tab PO QDAY RF: 0 azithromycin 250 mg tablet See Rx Instructions PO .COMPLEX Qty: 6 RF: 0 atenolol 25 mg tablet 25 mg PO QDAY Qty: 90 RF: 3 atorvastatin 10 mg tablet 5 mg PO HS Qty: 90 RF: 3 Primary Care Provider: Rick Gaffney Referrals: Judy Guan DO [STAFF PHYSICIAN] - 2 Days Rick Gaffney DO [Primary Care Provider] - Disposition Disposition: Home, Self Care
[2021-07-19 17:20] LABS: Absolute Lymphocyte Count 1.55 X10^3/uL (0.83-4.51); Absolute Neutrophil Count 6.1 X10^3/uL (2.0-7.7); Basophil# 0.05 X10^3/uL; Basophil% 0.6 % (0-1); Eosinophil# 0.15 X10^3/uL; Eosinophils% 1.7 % (0-5); Hematocrit 39.6 % (40-54); Hemoglobin 13.8 g/dL (13.0-16.5); Lymphocyte # 1.55 X10^3/ul (0.83-4.51); Mean Corp Hgb Conc 34.8 g/dL (32-36); Mean Corpuscular Hgb 31.7 pg (27.0-32.0); Mean Corpuscular Volume 90.8 fL (80-94); Mean Platelet Vol. 9.8 fl (6.2-12.0); Monocyte# 0.72 X10^3/uL; Monocyte% 8.4 % (0-10); NRBC Flagged by Analyzer 0 % (0-5); Neutrophil # 6.09 X10^3/uL (2.7-7.7); Neutrophil % 70.7 % (47-70); Platelet Count 243 K/mm3 (150-450); RBC Distribution Width CV 11.9 % (11.6-14.6); RBC Distribution Width SD 39.8 fl (35.1-43.9); Red Blood Count 4.36 M/mm3 (4.6-6.2); White Blood Count 8.6 K/mm3 (4.4-11.0)
[2021-07-19 17:28] LABS: Anion Gap 5 (5-15); BUN 11 mg/dL (7-18); BUN/Creat Ratio 13.7 RATIO (10-20); Calcium,Total 8.8 mg/dL (8.5-10.1); Chloride 91 mmol/L (98-107); EST Glomerular Filtration Rate 104 mL/min (>60); Est Glom Filt Rate - Afr Amer 126 mL/min (>60); Estimated Creatinine Clearance 87.84 ml/min; Glucose 92 mg/dL (74-106); Magnesium 2.2 mg/dL (1.6-2.6); Potassium 4.2 mmol/L (3.5-5.1); Sodium Level 124 mmol/L (136-145)
[2021-07-19 17:29] VITALS: PULSE 62; RESP 16; O2SAT 98
[2021-07-19] MEDS: 0.9% Normal Saline 1,000 ML 150 ML IV (17:29)
[2021-07-19 18:54] VITALS: BP 170/88; PULSE 69; RESP 15; O2SAT 98
== END 2021-07-19 18:59 | disposition home or self-care (01) ==
PROVIDERS: Emergency Provider Emergency Medicine; PCP Family Medicine
DX: E87.1 Hypo-osmolality and hyponatremia (principal); I25.10 Atherosclerotic heart disease of native coronary artery without angina pectoris; I10 Essential (primary) hypertension; E78.5 Hyperlipidemia, unspecified; Z87.891 Personal history of nicotine dependence; Z79.82 Long term (current) use of aspirin; Z79.899 Other long term (current) drug therapy
CPT/HCPCS: 80048; 83735; 85025; 93005; 99284; J7030; A4216

== ENCOUNTER → 2021-07-27 10:33 | Outpatient (CLI) | payer OTHER, SELFPAY ==
[2021-07-27 11:44] LABS: Anion Gap 6 (5-15); BUN 12 mg/dL (7-18); BUN/Creat Ratio 14.9 RATIO (10-20); Calcium,Total 8.9 mg/dL (8.5-10.1); Chloride 94 mmol/L (98-107); EST Glomerular Filtration Rate 104 mL/min (>60); Est Glom Filt Rate - Afr Amer 125 mL/min (>60); Glucose 84 mg/dL (74-106); Potassium 4.1 mmol/L (3.5-5.1); Sodium Level 129 mmol/L (136-145)
== END ==
PROVIDERS: PCP Family Medicine; Referring Provider Internal Medicine Nephrology; Visit Provider Internal Medicine Nephrology
DX: E87.1 Hypo-osmolality and hyponatremia (principal)
CPT/HCPCS: 36415; 80048

== ENCOUNTER → 2021-09-12 18:20 | Outpatient (CLI) | payer MEDICARE, SELFPAY | PROVIDERS: PCP Family Medicine; Visit Provider Family Medicine | DX: Z20.828 Contact with and (suspected) exposure to other viral communicable diseases (principal) | CPT/HCPCS: 87635; U0005; U0003 ==

== ENCOUNTER → 2021-09-26 07:17 | Outpatient (CLI) | payer SELFPAY ==
[2021-09-26 08:10] LABS: AST(SGOT) 22 U/L (15-37); Alanine Aminotransfer ALT/SGPT 27 U/L (16-61); Albumin, Serum 3.8 g/dL (3.2-5.0); Alkaline Phosphatase 95 U/L (45-117); Bilirubin, Direct 0.21 mg/dL (0.00-0.30); Cholesterol 173 mg/dL (200); Globulin 4.1 g/dL (2.2-4.2); High Density Lipoprotein 68 mg/dL; Protein, Total 7.9 g/dL (6.4-8.2); Triglycerides 56 mg/dL; Very Low Density Lipoprotein 11 mg/dL (5-40)
== END ==
PROVIDERS: PCP Family Medicine; Referring Provider Internal Medicine Cardiovascular Disease; Visit Provider Internal Medicine Cardiovascular Disease
DX: E78.00 Pure hypercholesterolemia, unspecified (principal); E78.5 Hyperlipidemia, unspecified
CPT/HCPCS: 36415; 80061; 80076

== ENCOUNTER → 2021-10-25 | Outpatient (CLI) | payer MEDICARE, SELFPAY | END | disposition home or self-care (01) | LOC: LABSPEC 11:53 | PROVIDERS: PCP Family Medicine; Referring Provider Physician Assistant; Visit Provider Physician Assistant | DX: Z11.52 Encounter for screening for COVID-19 (principal) | CPT/HCPCS: 87635; U0005; U0003 ==

== ENCOUNTER → 2021-10-26 10:16 | Outpatient (CLI) | payer SELFPAY ==
[2021-10-26 13:06] LABS: Anion Gap 8 (5-15); BUN 8 mg/dL (7-18); BUN/Creat Ratio 10.9 RATIO (10-20); Chloride 88 mmol/L (98-107); Creatinine, Serum 0.73 mg/dL (0.70-1.30); EST Glomerular Filtration Rate 115 mL/min (>60); Est Glom Filt Rate - Afr Amer 139 mL/min (>60); Glucose 101 mg/dL (74-106); Potassium 4.1 mmol/L (3.5-5.1); Sodium Level 121 mmol/L (136-145)
== END ==
LOC: POLAB3 10:17 → LAB.FUTURE 10:18 → POLAB3 10:38
PROVIDERS: PCP Family Medicine; Visit Provider Internal Medicine Nephrology
DX: E87.1 Hypo-osmolality and hyponatremia (principal)
CPT/HCPCS: 36415; 80048

== ENCOUNTER 2021-11-02 10:46 | Outpatient (CLI) | payer OTHER, SELFPAY ==
[2021-11-02 11:52] LABS: Anion Gap 9 (5-15); BUN 9 mg/dL (7-18); BUN/Creat Ratio 11.9 RATIO (10-20); Calcium,Total 8.8 mg/dL (8.5-10.1); Chloride 88 mmol/L (98-107); Creatinine, Serum 0.76 mg/dL (0.70-1.30); EST Glomerular Filtration Rate 110 mL/min (>60); Est Glom Filt Rate - Afr Amer 134 mL/min (>60); Glucose 91 mg/dL (74-106); Sodium Level 123 mmol/L (136-145)
== END 2021-11-02 23:59 | disposition short-term general hospital (02) ==
LOC: POLAB3 10:49
PROVIDERS: PCP Family Medicine; Visit Provider Internal Medicine Nephrology
DX: E87.1 Hypo-osmolality and hyponatremia (principal)
CPT/HCPCS: 36415; 80048

== ENCOUNTER 2021-11-16 14:29 | Outpatient (CLI) | payer OTHER, SELFPAY ==
[2021-11-16 17:23] LABS: Anion Gap 7 (5-15); BUN 14 mg/dL (7-18); BUN/Creat Ratio 12.6 RATIO (10-20); Calcium,Total 8.6 mg/dL (8.5-10.1); Chloride 93 mmol/L (98-107); Creatinine, Serum 1.11 mg/dL (0.70-1.30); EST Glomerular Filtration Rate 71 mL/min (>60); Est Glom Filt Rate - Afr Amer 86 mL/min (>60); Glucose 102 mg/dL (74-106); Potassium 4.2 mmol/L (3.5-5.1); Sodium Level 126 mmol/L (136-145)
== END 2021-11-16 23:59 | disposition short-term general hospital (02) ==
PROVIDERS: PCP Family Medicine; Visit Provider Internal Medicine Nephrology
DX: E87.1 Hypo-osmolality and hyponatremia (principal)
CPT/HCPCS: 36415; 80048

== ENCOUNTER → 2022-02-13 | Outpatient (CLI) | payer OTHER, SELFPAY ==
[2022-02-13 17:48] LABS: Anion Gap 8 (5-15); BUN 15 mg/dL (7-18); BUN/Creat Ratio 16.3 RATIO (10-20); Calcium,Total 8.9 mg/dL (8.5-10.1); Chloride 94 mmol/L (98-107); Creatinine, Serum 0.92 mg/dL (0.70-1.30); EST Glomerular Filtration Rate 89 mL/min (>60); Est Glom Filt Rate - Afr Amer 107 mL/min (>60); Glucose 100 mg/dL (74-106); Sodium Level 129 mmol/L (136-145)
== END | disposition home or self-care (01) ==
LOC: LAB 16:59
PROVIDERS: PCP Family Medicine; Visit Provider Internal Medicine Nephrology
DX: E22.2 Syndrome of inappropriate secretion of antidiuretic hormone (principal)
CPT/HCPCS: 36415; 80048

== ENCOUNTER → 2022-07-09 | Outpatient (CLI) | payer OTHER, SELFPAY ==
[2022-07-09 08:59] LABS: AST(SGOT) 20 U/L (15-37); Alanine Aminotransfer ALT/SGPT 25 U/L (16-61); Albumin, Serum 3.7 g/dL (3.2-5.0); Alkaline Phosphatase 84 U/L (45-117); Cholesterol 158 mg/dL (200); Globulin 3.7 g/dL (2.2-4.2); High Density Lipoprotein 62 mg/dL; Protein, Total 7.4 g/dL (6.4-8.2); Triglycerides 59 mg/dL; Very Low Density Lipoprotein 12 mg/dL (5-40)
== END | disposition home or self-care (01) ==
PROVIDERS: PCP Family Medicine; Referring Provider Internal Medicine Cardiovascular Disease; Visit Provider Internal Medicine Cardiovascular Disease
DX: E78.00 Pure hypercholesterolemia, unspecified (principal)
CPT/HCPCS: 36415; 80061; 80076

== ENCOUNTER → 2022-11-07 | Outpatient (CLI) | payer OTHER, SELFPAY ==
[2022-11-07 12:51] LABS: Anion Gap 7 (5-15); BUN 12 mg/dL (7-18); BUN/Creat Ratio 16.1 RATIO (10-20); Calcium,Total 9.1 mg/dL (8.5-10.1); Chloride 97 mmol/L (98-107); Creatinine, Serum 0.75 mg/dL (0.70-1.30); EST Glomerular Filtration Rate 112 mL/min (>60); Est Glom Filt Rate - Afr Amer 136 mL/min (>60); Glucose 98 mg/dL (74-106); Potassium 4.2 mmol/L (3.5-5.1); Sodium Level 129 mmol/L (136-145)
== END | disposition home or self-care (01) ==
LOC: POLAB3 10:34
PROVIDERS: PCP Family Medicine; Visit Provider Internal Medicine Nephrology
DX: E22.2 Syndrome of inappropriate secretion of antidiuretic hormone (principal)
CPT/HCPCS: 36415; 80048

== ENCOUNTER → 2023-03-04 | Outpatient (CLI) | payer OTHER, SELFPAY ==
[2023-03-04 13:30] LABS: AST(SGOT) 19 U/L (15-37); Alanine Aminotransfer ALT/SGPT 27 U/L (16-61); Albumin, Serum 3.7 g/dL (3.2-5.0); Alkaline Phosphatase 78 U/L (45-117); Anion Gap 5 (5-15); BUN 12 mg/dL (7-18); BUN/Creat Ratio 15.3 RATIO (10-20); Bilirubin, Direct 0.21 mg/dL (0.00-0.30); Calcium,Total 9.2 mg/dL (8.5-10.1); Chloride 96 mmol/L (98-107); Cholesterol 149 mg/dL (200); Creatinine, Serum 0.78 mg/dL (0.70-1.30); EST Glomerular Filtration Rate 106 mL/min (>60); Est Glom Filt Rate - Afr Amer 129 mL/min (>60); Globulin 3.5 g/dL (2.2-4.2); Glucose 98 mg/dL (74-106); High Density Lipoprotein 62 mg/dL; Potassium 4.3 mmol/L (3.5-5.1); Protein, Total 7.2 g/dL (6.4-8.2); Sodium Level 130 mmol/L (136-145); Triglycerides 55 mg/dL; Very Low Density Lipoprotein 11 mg/dL (5-40)
== END | disposition home or self-care (01) ==
LOC: POLAB3 10:05
PROVIDERS: Internal Medicine Cardiovascular Disease; PCP Family Medicine; Visit Provider Internal Medicine Nephrology
DX: E22.2 Syndrome of inappropriate secretion of antidiuretic hormone (principal); E78.00 Pure hypercholesterolemia, unspecified
CPT/HCPCS: 36415; 80048; 80061; 80076

== ENCOUNTER → 2023-06-10 | Outpatient (CLI) | payer OTHER, SELFPAY ==
[2023-06-10 13:29] LABS: Anion Gap 6 (5-15); BUN 12 mg/dL (7-18); BUN/Creat Ratio 13.8 RATIO (10-20); Calcium,Total 9.3 mg/dL (8.5-10.1); Chloride 95 mmol/L (98-107); Creatinine, Serum 0.87 mg/dL (0.70-1.30); EST Glomerular Filtration Rate 94 mL/min (>60); Est Glom Filt Rate - Afr Amer 114 mL/min (>60); Glucose 101 mg/dL (74-106); Potassium 4.4 mmol/L (3.5-5.1); Sodium Level 128 mmol/L (136-145)
== END | disposition home or self-care (01) ==
LOC: POLAB3 06-11 11:25
PROVIDERS: PCP Family Medicine; Visit Provider Internal Medicine Nephrology
DX: E22.2 Syndrome of inappropriate secretion of antidiuretic hormone (principal)
CPT/HCPCS: 36415; 80048

== ENCOUNTER → 2023-10-04 | Outpatient (CLI) | payer OTHER, SELFPAY ==
[2023-10-04 10:48] LABS: Anion Gap 7 (5-15); BUN 12 mg/dL (7-18); BUN/Creat Ratio 15.1 RATIO (10-20); Calcium,Total 8.8 mg/dL (8.5-10.1); Chloride 96 mmol/L (98-107); EST Glomerular Filtration Rate 104 mL/min (>60); Est Glom Filt Rate - Afr Amer 126 mL/min (>60); Glucose 94 mg/dL (74-106); Potassium 4.3 mmol/L (3.5-5.1); Sodium Level 129 mmol/L (136-145)
== END | disposition home or self-care (01) ==
LOC: POLAB3 09:10
PROVIDERS: PCP Family Medicine; Visit Provider Internal Medicine Nephrology
DX: E22.2 Syndrome of inappropriate secretion of antidiuretic hormone (principal)
CPT/HCPCS: 36415; 80048

== ENCOUNTER → 2023-10-09 | Outpatient (CLI) | payer OTHER, SELFPAY ==
[2023-10-09 08:00] LABS: AST(SGOT) 23 U/L (15-37); Alanine Aminotransfer ALT/SGPT 24 U/L (16-61); Albumin, Serum 3.7 g/dL (3.2-5.0); Alkaline Phosphatase 80 U/L (45-117); Bilirubin, Direct 0.24 mg/dL (0.00-0.30); Cholesterol 161 mg/dL (200); Globulin 3.9 g/dL (2.2-4.2); High Density Lipoprotein 67 mg/dL; Protein, Total 7.6 g/dL (6.4-8.2); Triglycerides 49 mg/dL; Very Low Density Lipoprotein 10 mg/dL (5-40)
== END | disposition home or self-care (01) ==
LOC: LAB 07:15
PROVIDERS: PCP Family Medicine; Referring Provider Physician Assistant Medical; Visit Provider Physician Assistant Medical
DX: E78.00 Pure hypercholesterolemia, unspecified (principal)
CPT/HCPCS: 36415; 80061; 80076

== ENCOUNTER 2024-01-01 11:51 | Inpatient (IN) | payer OTHER, SELFPAY ==
[2024-01-01] VITALS (8 sets, daily range): BP systolic 134–175; BP diastolic 75–91; PULSE 59–77; RESP 12–18; TEMP 35.7–36.4; O2SAT 93–99; BMI 20.7; BMI 20.1
--- NOTE | 2024-01-01 12:12 | ED.RN ---
pt presents to the ED c/o increasing fatigue with concerns for dehydration d/t decreased oral intake. pt tested positive for influenza A on Saturday at urgent care, now on day 3 of Tamiflu. pt states that upon waking this AM he felt dizzy, weak, and disoriented however now AO x 4. pt states he has a history of low sodium and is also concerned about that.
[2024-01-01] MEDS: 0.9% Normal Saline (1000mL) 1,000 ML 1000 ML IV (12:55)
[2024-01-01] MEDS: Ipratropium/Albuterol Sulfate 3 ML AMPUL.NEB INHALATION (12:55)
[2024-01-01 13:08] LABS: Anion Gap 6 (5-15); BUN 8 mg/dL (7-18); BUN/Creat Ratio 11.8 RATIO (10-20); Calcium,Total 8.3 mg/dL (8.5-10.1); Chloride 83 mmol/L (98-107); Creatinine, Serum 0.68 mg/dL (0.70-1.30); EST Glomerular Filtration Rate 125 mL/min (>60); Est Glom Filt Rate - Afr Amer 151 mL/min (>60); Estimated Creatinine Clearance 101.99 ml/min; Glucose 121 mg/dL (74-106); Potassium 4.3 mmol/L (3.5-5.1); Sodium Level 115 mmol/L (136-145)
[2024-01-01] MEDS: Albuterol 2.5 MG/3 ML VIAL.NEB. INHALATION ×3 (13:17→13:24)
--- NOTE | 2024-01-01 13:22 | EDS_ITS ---
HPI History of Present Illness Chief Complaint: Weakness Detail of Chief Complaint: Weakness, orthostatic symptoms, no improvement after Tamiflu Informant: patient and spouse/S.O. Onset/Context/Timing Onset: Days Context: Gradual Onset Timing: Continuous Quality: Diagnosed with influenza December 28. No improvement and now generalized weakn Current Severity: Mild Maximum Severity: Moderate Worsened by: Upright Relieved by: Supine Associated Symptoms Associated Symptoms: Decreased appetite, decreased urine and orthostatic symptoms Narrative Narrative: Patient reports onset of symptoms this past . He was seen on December 28 at the urgent care and diagnosed with influenza. He presents because he has had no improvement in spite of taking Tamiflu. He does report mild headache. Does report congestion, shortness of breath and intermittent wheezing. Patient states he has no appetite. He said poor p.o. intake both solids and liquids. Had decreased urine output. He does endorse dry mouth, thirst and orthostatic lightheadedness. He denies black or maroon-colored stool. He did have diarrhea initially. He had no diarrhea recently. He did endorse myalgias arthralgias initially. Prior similar symptoms: No Recent Illness/Hospitalization: Yes [facility] Medical History Atherosclerotic heart disease of [place] coronary artery without angina pectoris Carotid bruit COPD (chronic obstructive pulmonary disease) Essential hypertension History of [facility] Hyperlipidemia Hypertension Home Medications aspirin 81 mg tablet,delayed release (Adult Aspirin Regimen) 81 mg PO QDAY heart 11/29/17 [History Last Taken 10/31/19] coenzyme Q10 100 mg capsule (Co Q-10) 100 mg PO QDAY vitamin 11/29/17 [History Last Taken 11/01/19] multivitamin 1 tab PO QDAY vitamin 11/29/17 [History Last Taken 11/01/19] omega-3 fatty acids 1,000 mg capsule (Fish Oil Concentrate) 1,000 mg PO QDAY [facility] 11/29/17 [History Last Taken 11/01/19] atorvastatin 10 mg tablet See Rx Instructions .Route .COMPLEX #45 tabs 01/07/23 [Rx Last Taken Unknown] lisinopril 10 mg tablet See Rx Instructions .Route .COMPLEX #90 tabs 07/11/23 [Rx Last Taken Unknown] oseltamivir 75 mg capsule (Tamiflu) 75 mg PO Q12H 5 days #10 caps 12/29/23 [Rx Last Taken Unknown] atenolol 25 mg tablet 25 mg PO QDAY #90 tabs 12/31/23 [Rx Last Taken Unknown] Allergy/AdvReac Type Severity Reaction Status Date / Time ibuprofen [From Advil] AdvReac Intermediate SOB Verified 01/01/24 11:53 Family History Father CAD (coronary artery disease) S/P CABG (coronary artery bypass graft) Mother CAD (coronary artery disease) Hypertension Kidney disease Brother CAD (coronary artery disease) S/P CABG (coronary artery bypass graft) Sister S/P CABG (coronary artery bypass graft) CAD (coronary artery disease) Diabetes Surgical History History of coronary artery bypass surgery (~01/11/10) History of hand surgery History of left heart catheterization History of tonsillectomy Social History Smoking Status: Former smoker quit date: 10/28/09 pack-years: 30 alcohol intake: never substance use type: does not use caffeine: Yes Type: coffee Number of servings: 2 ROS ROS ED Constitutional Constitutional ED: Reports chills, fever(s) and subjective; Denies sweats Eyes Eyes: Denies blurry vision, change in vision or diplopia ENT ENT ED: Reports rhinorrhea and sore throat; Denies ear pain Cardiovascular Cardiovascular: Denies chest pain, orthopnea, palpitations or paroxysmal nocturnal dyspnea Respiratory/Chest Respiratory/Chest: Reports cough; Denies dyspnea on exertion, orthopnea, paroxysmal nocturnal dyspnea or sputum Gastrointestinal Gastrointestinal: Reports diarrhea; Denies abdominal pain, nausea or vomiting Genitourinary Genitourinary ED: Reports other Details: Decreased urine output ; Denies dysuria, hematuria or urinary frequency Musculoskeletal Musculoskeletal: Reports arthralgias and myalgias Integumentary Denies rash Neurologic Neurologic: Reports headache(s) and weakness; Denies paresthesias Endocrine Endocrinology: Denies cold intolerance or heat intolerance Hematologic/Lymphatic Hematologic/Lymphatic: Reports systems reviewed and no addt'l complaints, except as documented EXAM Physical Exam Const Vital Signs: 01/01/24 11:51 01/01/24 12:07 01/01/24 12:56 Temperature 97.5 F L Temperature Source Temporal Pulse Rate 59 L 77 Respiratory Rate 14 16 Respiratory Effort Normal Respiratory Pattern Normal Normal Blood Pressure 134/91 H Blood Pressure Mean 105 Pulse Ox 98 Oxygen Delivery Method Room Air 01/01/24 13:19 01/01/24 15:00 Temperature Temperature Source Pulse Rate 66 73 Respiratory Rate 12 18 Respiratory Effort Respiratory Pattern Blood Pressure 175/77 H 143/78 H Blood Pressure Mean 109 99 Pulse Ox 93 96 Oxygen Delivery Method Room Air Room Air Positive well nourished and well developed Constitutional Narrative: Patient appears ill but not toxic. He is in no obvious distress. General Appearance ED: well developed, NAD and pallor; Negative for cyanotic or diaphoretic HEENT Reports dry mucous membranes HEENT Narrative: Atraumatic normocephalic. Ears normal. Nares patent with slight discharge. Posterior pharynx out erythema exudate. Mucosa is dry. Mouth ED: Yes dry mucous membranes Mouth: dry mucous membranes Eyes PERRL and EOMs intact bilaterally General Eye ED: Negative for pale conjunctiva or scleral icterus Neck no lymphadenopathy, supple and no JVD Neck Narrative: Trachea is midline. There is no inspiratory or expiratory stridor Chest Wall inspection of chest normal and palpation of chest normal Resp normal respiratory effort and No clear to auscultation bilaterally Auscultation: rales bilateral base, wheezes expiratory wheezes and throughout and diminished lung sounds diffuse Cardio regular rate, regular rhythm, S1 normal heart sound, S2 normal heart sound and no murmurs GI normal to inspection, nondistended, normoactive bowel sounds, non-tender, non- distended and no masses; Negative for hepatosplenomegaly Auscultation: normoactive bowel sounds Palpation: soft Back/Spine no CVA tenderness Extremity normal to inspection General Extremety ED: Negative for edema or tenderness General Extremity: Negative for edema Neuro oriented x3, CN's II-XII intact bilaterally and no sensory deficits noted Sensorium / Orientation: alert Psych mental status grossly normal Skin no rashes or lesions noted, no wounds and No skin turgor normal General Skin Exam: pallor; Negative for jaundice MDM MDM MDM Narrative Medical decision making narrative: Clinically patient appears dehydrated. Will obtain BMP to assess renal function and rule out hyponatremia which she has had in the past. He was treated with albuterol and Atrovent since he has history of COPD. He is not on a diuretic. Patient's sodium is low at 115. This is significantly lower than 2 months ago. Urine and serum osmolarity was obtained. This could be reason why he is not feeling well since clinically he appears dehydrated 1 L of normal saline was ordered initially. History & Record Review Additional record(s) reviewed:: Prior inpatient record (Workup for hyponatremia did not yield a cause of his hyponatremia), Prior ED visit and Prior labs Lab Data Attestation: I reviewed the patient's lab results. Lab results narrative: Sodium is 115. Glucose slightly elevated 121 with normal CO2 anion gap. Creatinine is 0.68 with a estimated GFR 125. Urine osmolarity and serum osmolarity are normal and low respectively. This is not indicative of SIADH. Will contact hospitalist for admission for symptomatic hyponatremia and influenza. Labs: Laboratory Results - last 24 hr 01/01/24 01/01/24 01/01/24 12:28 13:31 13:50 Sodium 115 L* Potassium 4.3 Chloride 83 L Carbon Dioxide 26.0 Anion Gap 6 BUN 8 Creatinine 0.68 L Estim Creat Clear Calc 101.99 Est GFR (MDRD) Af Amer 151 Est GFR (MDRD) Non-Af 125 BUN/Creatinine Ratio 11.8 Glucose 121 H Serum Osmolality 241 L Calcium 8.3 L Urine Osmolality 351 Discharge Plan Triage Chief Complaint: Weakness ED Provider: Dereck Delvalle Dx/Rx/DC Orders Clinical Impression: Acute hyponatremia, Atherosclerotic heart disease of [place] coronary artery without angina pectoris, Influenza, Generalized weakness, Hyperlipidemia, COPD (chronic obstructive pulmonary disease), Essential hypertension, Acute bronchospasm Prescriptions: No Action coenzyme Q10 [Co Q-10] 100 mg capsule 100 mg PO QDAY aspirin [Adult Aspirin Regimen] 81 mg tablet,delayed release (DR/EC) 81 mg PO QDAY omega-3 fatty acids [Fish Oil Concentrate] 1,000 mg capsule 1,000 mg PO QDAY multivitamin tablet 1 tab PO QDAY lisinopril 10 mg tablet See Rx Instructions .ROUTE .COMPLEX Qty: 90 4RF Dose Instruction: TAKE 1 TABLET DAILY Rx Instructions: TAKE 1 TABLET DAILY oseltamivir [Tamiflu] 75 mg capsule 75 mg PO Q12H 5 Days Qty: 10 0RF atorvastatin 10 mg tablet See Rx Instructions .ROUTE .COMPLEX Qty: 45 4RF Dose Instruction: TAKE ONE-HALF (1/2) TABLET AT BEDTIME Rx Instructions: TAKE ONE-HALF (1/2) TABLET AT BEDTIME atenolol 25 mg tablet 25 mg PO QDAY Qty: 90 3RF Primary Care Provider: Rick Gaffney Referrals: Rick Gaffney DO [Primary Care Provider] -
--- OUTSIDE RECORDS SUMMARY | 2024-01-01 14:17 | XMS RPT_ITS | CCD ---
Author Name Unknown Address [address] [place] [address] Organization [facility] Care Team Providers Care Shortage Worker Name Role Phone Aracely ROWLEY, Danitza Diego Unavailable Unavailable Valerie Medeiros Unavailable Unavailable Roof PAIRING MACHINE OPERATOR, Kurt Menon Unavailable BENJAMÍN Boyer, Karla Montiel Unavailable DeFinis, Harumi Y Unavailable Unavailable Tyler Johnston Unavailable Unavailable Tyler Johnston Unavailable Unavailable Medications Completed/Discontinued Medications Medication Drug Class(es) Dates Sig (Normalized) Sig (Original) aspirin 81 mg oral tablet (14 sources) Nonsteroidal Anti-inflammatory Drug Start: 04-24-2011 take 1 tablet by mouth once daily ASPIRIN 81 MG TABS One tablet by mouth daily ASPIRIN [id number] Trish Angel Problems Active Problems Problem Classification Problem Date Documented Date Episodic/Chronic Complication of device; implant or graft (14 sources) Arteriosclerosis of coronary artery bypass graft; Translations: [Atherosclerosis of coronary artery bypass graft(s) without angina pectoris] Onset: 1 01-13-2016 Chronic Coronary atherosclerosis and other heart disease (20 sources) Atherosclerotic heart disease of [place] coronary artery without angina pectoris; Translations: [Angina pectoris] Onset: 1 Resolved: 5 05-14-2017 Chronic Disorders of lipid metabolism (7 sources) Hyperlipidemia; Translations: [Hyperlipidemia, unspecified] Onset: 1 04-24-2011 Chronic Essential hypertension (7 sources) Hypertensive disorder; Translations: [Essential (primary) hypertension] Onset: 1 04-24-2011 Chronic Osteoarthritis (7 sources) Degenerative joint disease of hand; Translations: [Primary osteoarthritis, left hand] Onset: 6 01-13-2016 Chronic Other non-traumatic joint disorders (14 sources) Arthritis of acromioclavicular joint; Translations: [Unspecified osteoarthritis, unspecified site] Onset: 2 Resolved: 5 09-16-2015 Chronic Unclassified (4 sources) Long-term drug therapy; Translations: [Other prison (current) drug therapy] Onset: 1 04-24-2011 Unclassified (4 sources) 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; Translations: [Presence of aortocoronary bypass graft] Onset: 1 05-14-2017 Past or Other Problems Problem Classification Problem Date Documented Date Episodic/Chronic Allergic reactions (7 sources) Dermatitis; Translations: [Dermatitis, unspecified] Onset: 6 Resolved: 6 04-19-2016 Episodic Coronary atherosclerosis and other heart disease (9 sources) Presence of aortocoronary bypass graft; Translations: [Presence of aortocoronary bypass graft] Onset: 1 04-24-2011 Episodic Nonspecific chest pain (14 sources) Precordial pain; Translations: [Precordial pain] Onset: 1 Resolved: 5 09-16-2015 Episodic Other aftercare (3 sources) Other prison (current) drug therapy; Translations: [Other long term care social worker (current) drug therapy] Onset: 1 04-24-2011 Episodic Other circulatory disease (18 sources) Electrocardiogram abnormal; Translations: [Carotid bruit] Onset: 1 Resolved: 5 04-24-2011 Episodic Other circulatory disease (3 sources) Carotid bruit; Translations: [Other specified symptoms and signs involving the circulatory and respiratory systems] Onset: 1 04-24-2011 Episodic Other lower respiratory disease (20 sources) Dyspnea; Translations: [Shortness of breath] Onset: 1 Resolved: 5 04-24-2011 Episodic Other non-traumatic joint disorders (14 sources) Pain in unspecified shoulder; Translations: [Pain in unspecified shoulder] Onset: 2 Resolved: 5 12-24-2011 Episodic Other upper respiratory infections (7 sources) Upper respiratory infection; Translations: [Acute upper respiratory infection, unspecified] Onset: 6 Resolved: 6 05-17-2016 Episodic Unclassified (14 sources) Family history of ischemic heart disease; Translations: [Family history of ischemic heart disease and other diseases of the circulatory system] Onset: 1 Resolved: 5 09-16-2015 Episodic Unclassified (7 sources) Preoperative cardiovascular examination ; Translations: [Encounter for preprocedural cardiovascular examination] Onset: 7 Resolved: 7 11-16-2016 Urinary tract infections (7 sources) Bacterial urethritis; Translations: [Other urethritis] Onset: 6 Resolved: 6 04-19-2016 Episodic Results Test Name Value Interpretation Reference Range Facil ity Vital Signs Date Time Vital Sign Value Performing Clinician Faci lity 05-17-2017 13:03-0400 BMI (Body Mass Index) 22.01 kg/m2 [facility] Work Phone: 05-17-2017 13:03-0400 BP Diastolic 74 mm[Hg] [facility] Work Phone: 05-17-2017 13:03-0400 BP Systolic 102 mm[Hg] [facility] Work Phone: 05-17-2017 13:03-0400 Height 177.8 cm [facility] Work Phone: 05-17-2017 13:03-0400 Pulse (Heart Rate) 66 /min [facility] Work Phone: 05-17-2017 13:03-0400 Respiratory Rate 20 /min [facility] Work Phone: 05-17-2017 13:03-0400 Weight 69.58 kg [facility] Work Phone: 11-16-2016 13:22-0500 Heart rate 64 /min Valerie Edgarjerald [facility] Work Phone: 11-16-2016 13:06-0500 BMI (Body Mass Index) 22.22 kg/m2 Kurt Quintero PAIRING MACHINE OPERATOR [facility] Work Phone: 11-16-2016 13:06-0500 BP Diastolic 70 mm[Hg] Kurt Quintero PAIRING MACHINE OPERATOR [facility] Work Phone: 11-16-2016 13:06-0500 BP Systolic 120 mm[Hg] Kurt Quintero PAIRING MACHINE OPERATOR [facility] Work Phone: 11-16-2016 13:06-0500 BSA (Body Surface Area) 1.87 m2 Kurt Quintero PAIRING MACHINE OPERATOR [facility] Work Phone: 11-16-2016 13:06-0500 Pulse (Heart Rate) 72 /min Kurt Quintero PAIRING MACHINE OPERATOR [facility] Work Phone: 11-16-2016 13:06-0500 Respiratory Rate 12 /min Kurt Quintero PAIRING MACHINE OPERATOR [facility] Work Phone: 11-16-2016 13:06-0500 Weight 70.26 kg Kurt Quintero PAIRING MACHINE OPERATOR [facility] Work Phone: 05-17-2016 11:04-0400 Body Temperature 98.1 [degF] Kurt Quintero PAIRING MACHINE OPERATOR [facility] Work Phone: 09-16-2015 12:06-0500 Height 177.8 cm Kurt Quintero PAIRING MACHINE OPERATOR [facility] Work Phone: 04-29-2013 13:52-0400 Heart rate 391 ms Valerie DeFinis [facility] Work Phone: Procedures Date Procedure Procedure Detail Performing Clinician Start: 05-17-2017 End: 05-17-2017 Follow Up Appt 6 months Jacques Blair MD Start: 05-17-2017 End: 05-17-2017 PFTiana Blair MD Start: 05-17-2017 End: 05-17-2017 Follow Up Appt 6 months Jacques Blair MD Start: 05-17-2017 End: 05-17-2017 PFM Jacques Blair MD Start: 11-16-2016 End: 05-03-2017 *Hepatic Function Panel Jacques Blair MD Start: 11-16-2016 End: 05-07-2017 Ecg routine ecg w/least 12 lds w/i&r Jacques Blair MD Start: 11-16-2016 End: 11-21-2016 Follow Up Appt 6 months Jacques Blair MD Start: 11-16-2016 End: 05-03-2017 Lipid 1996 panel - Serum or Plasma Jacques Blair MD Start: 11-16-2016 End: 11-21-2016 PFM Jacques Blair MD Start: 11-16-2016 End: 05-03-2017 *Hepatic Function Panel Jacques Blair MD Start: 11-16-2016 End: 05-07-2017 Electrocardiogram, complete Jacques Blair MD Start: 11-16-2016 End: 11-21-2016 Follow Up Appt 6 months Jacques Blair MD Start: 11-16-2016 End: 05-03-2017 Lipid panel [AGGREGATE] Jacques Blair MD Start: 11-16-2016 End: 11-21-2016 PFM Jacques Blair MD Start: 11-16-2016 End: 05-14-2017 Preoperative cardiovascular examination Preoperative cardiovascular evaluation Valerie Medeiros Start: 05-16-2016 End: 05-16-2016 Follow Up Appt 6 months Jacques Blair MD Start: 05-16-2016 End: 05-16-2016 PFM Jacques Blair MD Start: 05-16-2016 End: 05-16-2016 Follow Up Appt 6 months Jacques Blair MD Start: 05-16-2016 End: 05-16-2016 PFM Jacques Blair MD Start: 04-27-2016 End: 04-27-2016 Urinalysis Nathanumi DeFinis Start: 04-19-2016 End: 04-19-2016 *CHLGC - Chlamydia/GC DNA Probe [id number] Rick Petersenutzman DO Work Phone: Start: 04-19-2016 End: 04-19-2016 *BONITA - Fungus, BONITA Prep Rick Diego Yeimy DO Work Phone: Start: 04-19-2016 End: 04-27-2016 Urinalysis complete panel - Urine Rick Petersenutzman DO Work Phone: Start: 04-19-2016 End: 04-19-2016 Urnls dip stick/tablet rgnt non-auto w/o micrscp Rick Petersenutzman DO Work Phone: Start: 04-19-2016 End: 04-19-2016 Urinalysis Nathanumi DeFinis Start: 04-19-2016 End: 04-19-2016 *CHLGC - Chlamydia/GC DNA Probe [id number] Rick Petersenutzman DO Work Phone: Start: 04-19-2016 End: 04-19-2016 *BONITA - Fungus, BONITA Prep Rick Grantman DO Work Phone: Start: 04-19-2016 End: 04-27-2016 Urinalysis complete panel - Urine Rick Diego Yeimy DO Work Phone: Start: 04-19-2016 End: 04-19-2016 Urinalysis nonauto w/o scope Rick Diego Yeimy DO Work Phone: Start: 04-02-2016 End: 04-27-2016 *CMP Complete Metabolic Panel Rick Diego Yeimy DO Work Phone: Start: 04-02-2016 End: 04-27-2016 Lipid 1996 panel - Serum or Plasma Rick Diego Yeimy DO Work Phone: Start: 04-02-2016 End: 04-27-2016 *CMP Complete Metabolic Panel Rick Gaffney DO Work Phone: Start: 04-02-2016 End: 04-27-2016 Lipid panel [AGGREGATE] Rick Gaffney DO Work Phone: Start: 09-16-2015 End: 09-16-2015 Follow Up Appt 6 months Jacques Blair MD Start: 09-16-2015 End: 09-16-2015 PFM Jacques Blair MD Start: 09-16-2015 End: 09-16-2015 Follow Up Appt 6 months Jacques Blair MD Start: 09-16-2015 End: 09-16-2015 PFM Jacques Blair MD Start: 01-07-2015 End: 01-08-2015 Documentation of current medications Jacques Blair MD Start: 01-07-2015 End: 01-07-2015 Follow Up Appt 6 months Jacques Blair MD Start: 01-07-2015 End: 05-07-2017 Follow Up Appt Other Jacques Blair MD Start: 01-07-2015 End: 01-07-2015 PFM Jacques Blair MD Start: 01-07-2015 End: 01-08-2015 Documentation of current medications Jacques Blair MD Start: 01-07-2015 End: 01-07-2015 Follow Up Appt 6 months Jacques Blair MD Start: 01-07-2015 End: 05-07-2017 Follow Up Appt Other Jacques Blair MD Start: 01-07-2015 End: 01-07-2015 PFM Jacques Blair MD Start: 06-30-2014 End: 06-30-2014 Follow Up Appt 6 months Jacques Blair MD Start: 06-30-2014 End: 06-30-2014 PFM Jacques Blair MD Start: 06-30-2014 End: 06-30-2014 Follow Up Appt 6 months Jacques Blair MD Start: 06-30-2014 End: 06-30-2014 PFM Jacques Blair MD Start: 12-14-2013 End: 12-14-2013 Follow Up Appt 6 months Jacques Blair MD Start: 12-14-2013 End: 06-30-2014 Follow Up Appt Other Jacques Bliar MD Start: 12-14-2013 End: 12-14-2013 PFM Jacques Blair MD Start: 12-14-2013 End: 12-14-2013 Follow Up Appt 6 months Jacques Blair MD Start: 12-14-2013 End: 06-30-2014 Follow Up Appt Other Jacques Blair MD Start: 12-14-2013 End: 12-14-2013 PFM Jacques Blair MD Start: 04-29-2013 End: 04-29-2013 Ecg routine ecg w/least 12 lds w/i&r Jacques Blair MD Start: 04-29-2013 End: 04-29-2013 Follow Up Appt 6 months Jacques Blair MD Start: 04-29-2013 End: 05-07-2017 Follow Up Appt Other Jacques Blair MD Start: 04-29-2013 End: 04-29-2013 PFM Jacques Blair MD Start: 04-29-2013 End: 04-29-2013 Electrocardiogram, complete Jacques Blair MD Start: 04-29-2013 End: 04-29-2013 Follow Up Appt 6 months Jacques Blair MD Start: 04-29-2013 End: 05-07-2017 Follow Up Appt Other Jacques Blair MD Start: 04-29-2013 End: 04-29-2013 PFM Jacques Blair MD Start: 01-26-2013 End: 02-15-2014 *Hepatic Function Panel Jacques Blair MD Start: 01-26-2013 End: 02-15-2014 Lipid 1996 panel - Serum or Plasma Jacques Blair MD Start: 01-26-2013 End: 02-15-2014 *Hepatic Function Panel Jacques Blair MD Start: 01-26-2013 End: 02-15-2014 Lipid panel [AGGREGATE] Jacques Blair MD Start: 09-29-2012 End: 08-30-2015 *Hepatic Function Panel Jacques Blair MD Start: 09-29-2012 End: 05-07-2017 Follow Up Appt 6 months Jacques Blair MD Start: 09-29-2012 End: 08-30-2015 Lipid 1996 panel - Serum or Plasma Jacques Blair MD Start: 09-29-2012 End: 08-30-2015 *Hepatic Function Panel Jacques Bliar MD Start: 09-29-2012 End: 05-07-2017 Follow Up Appt 6 months Jacques Blair MD Start: 09-29-2012 End: 08-30-2015 Lipid panel [AGGREGATE] Jacques Blair MD Start: 02-28-2012 End: 08-06-2012 *Hepatic Function Panel Jacques Blair MD Start: 02-28-2012 End: 02-28-2012 Ecg routine ecg w/least 12 lds w/i&r Jacques Blair MD Start: 02-28-2012 End: 09-29-2012 Follow Up Appt 6 months Jacques Blair MD Start: 02-28-2012 End: 08-06-2012 Lipid 1996 panel - Serum or Plasma Jacques Blair MD Start: 02-28-2012 End: 08-06-2012 *Hepatic Function Panel Jacques Blair MD Start: 02-28-2012 End: 02-28-2012 Electrocardiogram, complete Jacques Blair MD Start: 02-28-2012 End: 09-29-2012 Follow Up Appt 6 months Jacques Blair MD Start: 02-28-2012 End: 08-06-2012 Lipid panel [AGGREGATE] Jacques Blair MD Plan of Treatment Date Care Activity Detail Author Start: 12-02-2017 End: 12-02-2017 Appointment Appointment [facility] Work Phone: Start: 11-04-2017 End: 05-15-2017 *Hepatic Function Panel *Hepatic Function Panel [facility] Work Phone: Start: 11-04-2017 End: 05-15-2017 Lipid panel [AGGREGATE] *Lipid Profile CC PCP [facility] Work Phone: Start: 11-04-2017 End: 05-15-2017 *Hepatic Function Panel *Hepatic Function Panel [facility] Work Phone: Start: 11-04-2017 End: 05-15-2017 Lipid panel [AGGREGATE] *Lipid Profile CC PCP [facility] Work Phone: Start: 05-17-2017 End: 05-17-2017 *Hepatic Function Panel *Hepatic Function Panel [facility] Work Phone: Start: 05-17-2017 End: 05-17-2017 Follow Up Appt 6 months Follow Up Appt 6 months [facility] Work Phone: Start: 05-17-2017 End: 05-17-2017 Lipid panel [AGGREGATE] *Lipid Profile CC PCP [facility] Work Phone: Start: 05-17-2017 End: 05-17-2017 PFM PFM [facility] Work Phone: Start: 05-17-2017 End: 05-17-2017 Appointment Appointment [email or web address] Work Phone: Start: 05-17-2017 End: 05-17-2017 *Hepatic Function Panel *Hepatic Function Panel [facility] Work Phone: Start: 05-17-2017 End: 05-17-2017 Follow Up Appt 6 months Follow Up Appt 6 months [facility] Work Phone: Start: 05-17-2017 End: 05-17-2017 Lipid 1996 panel *Lipid Profile CC PCP [facility] Work Phone: Start: 05-17-2017 End: 05-17-2017 PFM PFM [facility] Work Phone: Start: 11-16-2016 End: 05-03-2017 *Hepatic Function Panel *Hepatic Function Panel [facility] Work Phone: Start: 11-16-2016 End: 05-07-2017 Ecg routine ecg w/least 12 lds w/i&r EKG (In office) [facility] Work Phone: Start: 11-16-2016 End: 11-21-2016 Follow Up Appt 6 months Follow Up Appt 6 months [facility] Work Phone: Start: 11-16-2016 End: 05-03-2017 Lipid panel [AGGREGATE] *Lipid Profile CC PCP [facility] Work Phone: Start: 11-16-2016 End: 11-21-2016 PFM PFM [facility] Work Phone: Start: 11-16-2016 End: 05-03-2017 *Hepatic Function Panel *Hepatic Function Panel [facility] Work Phone: Start: 11-16-2016 End: 05-07-2017 Electrocardiogram, complete EKG (In office) [facility] Work Phone: Start: 11-16-2016 End: 11-21-2016 Follow Up Appt 6 months Follow Up Appt 6 months [facility] Work Phone: Start: 11-16-2016 End: 05-03-2017 Lipid panel [AGGREGATE] *Lipid Profile CC PCP [facility] Work Phone: Start: 11-16-2016 End: 11-21-2016 PFM PFM [facility] Work Phone: Start: 05-16-2016 End: 05-16-2016 Follow Up Appt 6 months Follow Up Appt 6 months [facility] Work Phone: Start: 05-16-2016 End: 05-16-2016 PFM PF [email or web address] Work Phone: Start: 05-16-2016 End: 05-16-2016 Follow Up Appt 6 months Follow Up Appt 6 months [facility] Work Phone: Start: 05-16-2016 End: 05-16-2016 PF PF [facility] Work Phone: Start: 04-19-2016 End: 04-19-2016 *CHLGC - Chlamydia/GC DNA Probe [id number] *CHLGC - Chlamydia/GC DNA Probe [id number] [facility] Work Phone: Start: 04-19-2016 End: 04-19-2016 *BONITA - Fungus, BONITA Prep *BONITA - Fungus, OBNITA Prep [facility] Work Phone: Start: 04-19-2016 End: 04-19-2016 Urinalysis complete panel - Urine *UAC- Urinalysis, Complete w/ Micro [facility] Work Phone: Start: 04-19-2016 End: 04-19-2016 *CHLGC - Chlamydia/GC DNA Probe [id number] *CHLGC - Chlamydia/GC DNA Probe [id number] [facility] Work Phone: Start: 04-19-2016 End: 04-19-2016 *BONITA - Fungus, BONITA Prep *BONITA - Fungus, BONTIA Prep [facility] Work Phone: Start: 04-19-2016 End: 04-19-2016 Urinalysis complete panel - Urine *UAC- Urinalysis, Complete w/ Micro [facility] Work Phone: Start: 04-02-2016 End: 04-19-2016 *CMP Complete Metabolic Panel *CMP Complete Metabolic Panel [facility] Work Phone: Start: 04-02-2016 End: 04-19-2016 Lipid panel [AGGREGATE] *Lipid Profile [facility] Work Phone: Start: 04-02-2016 End: 04-19-2016 *CMP Complete Metabolic Panel *CMP Complete Metabolic Panel [facility] Work Phone: Start: 04-02-2016 End: 04-19-2016 Lipid panel [AGGREGATE] *Lipid Profile [facility] Work Phone: Start: 09-16-2015 End: 09-16-2015 Follow Up Appt 6 months Follow Up Appt 6 months [facility] Work Phone: Start: 09-16-2015 End: 09-16-2015 PFM PFM [facility] Work Phone: Start: 09-16-2015 End: 09-16-2015 Follow Up Appt 6 months Follow Up Appt 6 months [facility] Work Phone: Start: 09-16-2015 End: 09-16-2015 PFM PFM [facility] Work Phone: Start: 01-07-2015 End: 01-07-2015 Follow Up Appt 6 months Follow Up Appt 6 months [facility] Work Phone: Start: 01-07-2015 End: 05-07-2017 Follow Up Appt Other Follow Up Appt Other [facility] Work Phone: Start: 01-07-2015 End: 01-07-2015 PFM PFM [facility] Work Phone: Start: 01-07-2015 End: 01-07-2015 Follow Up Appt 6 months Follow Up Appt 6 months [facility] Work Phone: Start: 01-07-2015 End: 05-07-2017 Follow Up Appt Other Follow Up Appt Other [facility] Work Phone: Start: 01-07-2015 End: 01-07-2015 PFM PFM [facility] Work Phone: Start: 06-30-2014 End: 06-30-2014 Follow Up Appt 6 months Follow Up Appt 6 months [facility] Work Phone: Start: 06-30-2014 End: 06-30-2014 PFM PFM [facility] Work Phone: Start: 06-30-2014 End: 06-30-2014 Follow Up Appt 6 months Follow Up Appt 6 months [facility] Work Phone: Start: 06-30-2014 End: 06-30-2014 PFM PFM [facility] Work Phone: Start: 12-14-2013 End: 12-14-2013 Follow Up Appt 6 months Follow Up Appt 6 months [facility] Work Phone: Start: 12-14-2013 End: 06-30-2014 Follow Up Appt Other Follow Up Appt Other [facility] Work Phone: Start: 12-14-2013 End: 12-14-2013 PFM PFM [facility] Work Phone: Start: 12-14-2013 End: 12-14-2013 Follow Up Appt 6 months Follow Up Appt 6 months [facility] Work Phone: Start: 12-14-2013 End: 06-30-2014 Follow Up Appt Other Follow Up Appt Other [facility] Work Phone: Start: 12-14-2013 End: 12-14-2013 PFM PFM [facility] Work Phone: Start: 04-29-2013 End: 04-29-2013 Ecg routine ecg w/least 12 lds w/i&r EKG (In office) [facility] Work Phone: Start: 04-29-2013 End: 04-29-2013 Follow Up Appt 6 months Follow Up Appt 6 months [facility] Work Phone: Start: 04-29-2013 End: 05-07-2017 Follow Up Appt Other Follow Up Appt Other [facility] Work Phone: Start: 04-29-2013 End: 04-29-2013 PFM PFM [facility] Work Phone: Start: 04-29-2013 End: 04-29-2013 Electrocardiogram, complete EKG (In office) [facility] Work Phone: Start: 04-29-2013 End: 04-29-2013 Follow Up Appt 6 months Follow Up Appt 6 months [facility] Work Phone: Start: 04-29-2013 End: 05-07-2017 Follow Up Appt Other Follow Up Appt Other [facility] Work Phone: Start: 04-29-2013 End: 04-29-2013 PFM PFM [facility] Work Phone: Start: 01-26-2013 End: 02-15-2014 *Hepatic Function Panel *Hepatic Function Panel [facility] Work Phone: Start: 01-26-2013 End: 02-15-2014 Lipid panel [AGGREGATE] *Lipid Profile [facility] Work Phone: Start: 01-26-2013 End: 02-15-2014 *Hepatic Function Panel *Hepatic Function Panel [facility] Work Phone: Start: 01-26-2013 End: 02-15-2014 Lipid panel [AGGREGATE] *Lipid Profile [facility] Work Phone: Start: 09-29-2012 End: 08-30-2015 *Hepatic Function Panel *Hepatic Function Panel [facility] Work Phone: Start: 09-29-2012 End: 05-07-2017 Follow Up Appt 6 months Follow Up Appt 6 months [facility] Work Phone: Start: 09-29-2012 End: 08-30-2015 Lipid panel [AGGREGATE] *Lipid Profile [facility] Work Phone: Start: 09-29-2012 End: 08-30-2015 *Hepatic Function Panel *Hepatic Function Panel [facility] Work Phone: Start: 09-29-2012 End: 05-07-2017 Follow Up Appt 6 months Follow Up Appt 6 months [facility] Work Phone: Start: 09-29-2012 End: 08-30-2015 Lipid panel [AGGREGATE] *Lipid Profile [facility] Work Phone: Start: 02-28-2012 End: 08-06-2012 *Hepatic Function Panel *Hepatic Function Panel [facility] Work Phone: Start: 02-28-2012 End: 02-28-2012 Ecg routine ecg w/least 12 lds w/i&r EKG (In office) [facility] Work Phone: Start: 02-28-2012 End: 09-29-2012 Follow Up Appt 6 months Follow Up Appt 6 months [facility] Work Phone: Start: 02-28-2012 End: 08-06-2012 Lipid panel [AGGREGATE] *Lipid Profile [facility] Work Phone: Start: 02-28-2012 End: 08-06-2012 *Hepatic Function Panel *Hepatic Function Panel [facility] Work Phone: Start: 02-28-2012 End: 02-28-2012 Electrocardiogram, complete EKG (In office) [facility] Work Phone: Start: 02-28-2012 End: 09-29-2012 Follow Up Appt 6 months Follow Up Appt 6 months [facility] Work Phone: Start: 02-28-2012 End: 08-06-2012 Lipid panel [AGGREGATE] *Lipid Profile [facility] Work Phone: Patient Education HYPERLIPIDEMIA [facility] Work Phone: Additional Source Comments FOR RECORDS PERTAINING TO PATIENTS WHO ARE OR HAVE BEEN ENROLLED IN A CHEMICAL DEPENDENCY/SUBSTANCEABUSE PROGRAM, SOME INFORMATION MAY BE OMITTED. This clinical summary was aggregated from multiple sources. Caution should be exercised in using it in the provision of clinical care. This summary normalizes information from multiple sources, and as a consequence, information in this document may materially change the coding, format and clinical context of patient data. In addition, data may be omitted in some cases. CLINICAL DECISIONS SHOULD BE BASED ON THE PRIMARY CLINICAL RECORDS. [employer] provides no warranty or guarantee of the accuracy or completeness of information in this document.
[2024-01-01 14:26] LABS: Osmolality, Serum 241 mOsm/KG (280-301)
[2024-01-01 14:26] LABS: Osmolality, Urine 351 mOsm/KG
--- NOTE | 2024-01-01 16:07 | NURSING ---
MED SURG BREANNE SYMPTOMATIC HYPONATREMIA, INFLUENZA
--- NOTE | 2024-01-01 16:25 | HP.PCM.HOS_ITS ---
HPI - General General Date of Admission: 01/01/24 Date of Service: 01/01/24 Chief Complaint: Generalized weakness HPI Narrative JORGE A LINTON, is a 63 M who presented to the emergency department at [facility] on 01/01/2024. Patient stated he started feeling not well on Saturday of last week and on Saturday he was seen at an urgent care and diagnosed with influenza A. He was started on Tamiflu but has not improved with regards to his symptoms in spite of this. He is complaining of mild headache and some congestion along with shortness of breath and intermittent wheezing. He reported that his appetite has been poor and his p.o. intake has been extremely poor with regards to solute. He states he is trying to drink some Gatorade daily but his oral intake with regards to liquids has been poor as well. He states his mouth has been dry and he has had some orthostatic lightheadedness. He had some diarrhea initially but this has resolved. He has a known history of hyponatremia for which she follows with Dr. Judy Guna as an outpatient. His last sodium was done in September and at that time was 129 which is about his baseline. (Last calendar year sodium has been running between 128 and 130). Since he has been fairly stable she has been checking them every 6 months. He has been diagnosed with SIADH previously which has been managed with electrolyte drinks and fluid restriction. Per documentation there was some wheezing on exam on presentation however this was resolved at the time of my evaluation. Vital signs on presentation show a temperature of 97.5, heart rate has been between 59 and 77, blood pressure was 134/91, respiratory rate 14 oxygen saturations were 98% on room air. A CBC was not ordered but I have since ordered one and it is pending. His chemistry panel shows a sodium of 115, ch loride is 83, creatinine is 0.68 and serum osmolality was 241. Urine osmolality was 351 but no urine sodium was obtained. Patient was given a DuoNeb and 1 L of IV fluids in the emergency department. [facility] Medical History Atherosclerotic heart disease of [place] coronary artery without angina pectoris Carotid bruit COPD (chronic obstructive pulmonary disease) Essential hypertension History of SIADH Hyperlipidemia Hypertension Home Medications aspirin 81 mg tablet,delayed release (Adult Aspirin Regimen) 81 mg PO QDAY heart 11/29/17 [History Last Taken 10/31/19] coenzyme Q10 100 mg capsule (Co Q-10) 100 mg PO QDAY vitamin 11/29/17 [History Last Taken 11/01/19] multivitamin 1 tab PO QDAY vitamin 11/29/17 [History Last Taken 11/01/19] omega-3 fatty acids 1,000 mg capsule (Fish Oil Concentrate) 1,000 mg PO QDAY heart health 11/29/17 [History Last Taken 11/01/19] atorvastatin 10 mg tablet See Rx Instructions .Route .COMPLEX #45 tabs 01/07/23 [Rx Last Taken Unknown] lisinopril 10 mg tablet See Rx Instructions .Route .COMPLEX #90 tabs 07/11/23 [Rx Last Taken Unknown] oseltamivir 75 mg capsule (Tamiflu) 75 mg PO Q12H 5 days #10 caps 12/29/23 [Rx Last Taken Unknown] atenolol 25 mg tablet 25 mg PO QDAY #90 tabs 12/31/23 [Rx Last Taken Unknown] Allergy/AdvReac Type Severity Reaction Status Date / Time ibuprofen [From Advil] AdvReac Intermediate SOB Verified 01/01/24 11:53 Family History Father CAD (coronary artery disease) S/P CABG (coronary artery bypass graft) Mother CAD (coronary artery disease) Hypertension Kidney disease Brother CAD (coronary artery disease) S/P CABG (coronary artery bypass graft) Sister S/P CABG (coronary artery bypass graft) CAD (coronary artery disease) Diabetes Surgical History History of coronary artery bypass surgery (~01/11/10) History of hand surgery History of left heart catheterization History of tonsillectomy Social History Smoking Status: Former smoker quit date: 10/28/09 pack-years: 30 alcohol intake: never substance use type: does not use caffeine: Yes Type: coffee Number of servings: 2 ROS Constitutional Constitutional: Reports anorexia, chills, fatigue, malaise and weakness; Denies change in weight, fever(s), night sweats or other Eyes Eyes: Denies blurry vision, change in eye color, change in vision, discharge from eye(s), double vision, erythema, eye pain, loss of vision or other ENT HEENT: Reports headache(s), nasal congestion, nasal discharge and post nasal drip; Denies abnormal hearing, dysphagia, ear pain, epistaxis, hearing loss, sinus pressure, sore throat or other Cardiovascular Cardiovascular: Denies chest pain, claudication, dyspnea on exertion, edema, lightheadedness, orthopnea, palpitations, paroxysmal nocturnal dyspnea, rapid heart rate, syncope or other Respiratory/Chest Respiratory/Chest: Reports cough, shortness of breath with exertion and wheezing; Denies dyspnea, excessive phlegm production, hemoptysis, productive cough, shortness of breath at rest or other Gastrointestinal Gastrointestinal: Reports diarrhea; Denies abdominal pain, coffee ground emesis, constipation, dyspepsia, hematemesis, hematochezia, loose stools, melena, nausea, vomiting or other Genitourinary Genitourinary: Denies burning urination, difficulty urinating, dysuria, hematuria, nocturia, urinary frequency, urinary hesitancy, urinary incontinence, urinary urgency or other Musculoskeletal Musculoskeletal: Denies arthralgias, back pain, joint pain, joint stiffness, joint swelling, myalgias, neck pain or other Neurologic Neurologic: Denies abnormal gait, abnormal speech, confusion, disequilibrium, dizziness, focal weakness, headache(s), numbness, paresthesias, seizure-like activity, seizures, syncope, tingling, tremor(s) or other Psychiatric Psychiatric: Denies anxiety, depression, homicidal ideation, suicidal ideation or other Endocrine Endocrinology: Denies change in body appearance, cold intolerance, excessive sweating, heat intolerance, polydipsia, polyuria or other Hematologic/Lymphatic Hematologic/Lymphatic: Denies anemia, easy bleeding, easy bruising, lymphadenopathy or other Allergic/Immunologic Allergic/Immunologic: Denies rhinitis, hives, eczemia, asthma or other Vital Signs Vital Signs Vital Signs: 01/01/24 11:51 01/01/24 12:07 01/01/24 12:56 Temperature 97.5 F L Temperature Source Temporal Pulse Rate 59 L 77 Respiratory Rate 14 16 Respiratory Effort Normal Respiratory Pattern Normal Normal Blood Pressure 134/91 H Blood Pressure Mean 105 Pulse Ox 98 Oxygen Delivery Method Room Air 01/01/24 13:19 01/01/24 15:00 Temperature Temperature Source Pulse Rate 66 73 Respiratory Rate 12 18 Respiratory Effort Respiratory Pattern Blood Pressure 175/77 H 143/78 H Blood Pressure Mean 109 99 Pulse Ox 93 96 Oxygen Delivery Method Room Air Room Air Weight Weight: 65.7 kg Body Mass Index (BMI) 20.7 Physical Exam Const alert, oriented x3, no apparent distress, average body habitus, healthy velia earing and well nourished Constitutional Narrative: Upper middle-aged, white male, sitting up in bed, appears weak but not overtly ill or toxic, at bedside, very pleasant General Appearance: cooperative HEENT normocephalic, head/scalp atraumatic, hearing grossly normal bilaterally and moist oral mucous membranes HEENT Narrative: Dentition is good for age, Mallampati is 1-2, no thrush Eyes PERRL, EOMs intact bilaterally and conjunctivae normal Eyes Narrative: No scleral icterus Neck no lymphadenopathy and supple Neck Narrative: Trachea midline, no thyroid enlargement Resp normal respiratory effort, no retractions, no use of accessory muscles and clear to auscultation bilaterally Auscultation: Negative for rales, rhonchi or wheezes Cardio regular rate, regular rhythm, S1 normal heart sound, S2 normal heart sound, no murmurs, no rub, no gallops and no clicks GI normal to inspection, nondistended, normoactive bowel sounds, soft to palpation and non-tender Extremity no clubbing, cyanosis or edema Extremity Narrative: Pedal pulses are 2+ Neuro oriented x3, CN's II-XII intact bilaterally, moves all extremities and no focal motor deficits Speech: speech normal Psych affect normal Psych Narrative: Interacts appropriately, eye contact is good Results Lab / Micro Data 01/01/24 12:28 Labs: Laboratory Results - last 24 hr 01/01/24 12:28: Sodium 115 L*, Potassium 4.3, Chloride 83 L, Carbon Dioxide 26.0, Anion Gap 6, BUN 8, Creatinine 0.68 L, Estim Creat Clear Calc 101.99, Est GFR (MDRD) Af Amer 151, Est GFR (MDRD) Non-Af 125, BUN/Creatinine Ratio 11.8, Glucose 121 H, Calcium 8.3 L 01/01/24 13:31: Serum Osmolality 241 L 01/01/24 13:50: Urine Osmolality 351 Assessment & Plan Assessment/Plan (1) Hyponatremia: (2) History of SIADH: (3) Influenza: (4) Generalized weakness: PLAN: Plan Acute on chronic hyponatremia -Patient has been diagnosed with SIADH and typically follows fluid restriction -P.o. intake has been poor with regards to solute and I suspect that he has had decreased solute and ongoing fluid intake resulting in worsening of his hypon atremia -Will fluid restrict -Given his poor oral intake due to decreased appetite from influenza A will start salt tablets 1 g 3 times daily -Check BMP every 6 hours x 3 -If sodium does not improve may need to consult Dr. Guan for assistance with his hyponatremia -He follows with her as an outpatient History of SIADH -As above -Managed with fluid restriction at baseline -Baseline sodium runs between 128 and 130 over the last year Influenza A -Diagnosed on 12/29/2023 -Has been on Tamiflu since that point in time -Has 5 tablets left we will continue -Supportive care with as needed antitussive and nebulizers Generalized weakness -Likely related to influenza A plus hyponatremia -PT consultation -Should improve with improvement in sodium and as he recovers from his influenza infection -Will check CBC to rule out any anemia that could be contributing CAD/HTN/HPL -01/11/2010 KNOTT to LAD, EDYTA insitu to the RCA and SVG to DX, SVG to [facility] per Dr. Rubio -Continue home aspirin -Continue home atenolol -Continue home atorvastatin -Continue home lisinopril COPD -Patient is not oxygen dependent and takes no inhalers for this at baseline -Recommend outpatient follow-up if symptoms change History of tobacco abuse -Recommend ongoing cessation -As needed albuterol as patient did have some wheezing on presentation likely related to his influenza A infection -Quit smoking in 2009 but has 33-frgd-gopt history DVT prophylaxis -Lovenox subcu daily CODE STATUS -Full code is verified on admission Charges/Coding Visit Charges Inpatient E&M: 87212 Init Hosp L2
[2024-01-01 16:56] LABS: Absolute Lymphocyte Count 1.08 X10^3/uL (0.83-4.51); Absolute Neutrophil Count 5.1 X10^3/uL (2.0-7.7); Basophil# 0.02 X10^3/uL; Basophil% 0.3 % (0-1); Eosinophil# 0.03 X10^3/uL; Eosinophils% 0.4 % (0-5); Hematocrit 35.9 % (40-54); Hemoglobin 13.2 g/dL (13.0-16.5); Lymphocyte # 1.08 X10^3/ul (0.83-4.51); Lymphocyte % 15.7 % (19-41); Mean Corp Hgb Conc 36.8 g/dL (32-36); Mean Corpuscular Hgb 32.9 pg (27.0-32.0); Mean Corpuscular Volume 89.5 fL (80-94); Mean Platelet Vol. 11.5 fl (6.2-12.0); Monocyte% 8.7 % (0-10); NRBC Flagged by Analyzer 0.3 % (0-5); Neutrophil # 5.11 X10^3/uL (2.7-7.7); Neutrophil % 74.5 % (47-70); Platelet Count 211 K/mm3 (150-450); RBC Distribution Width CV 12.1 % (11.6-14.6); RBC Distribution Width SD 39.8 fl (35.1-43.9); Red Blood Count 4.01 M/mm3 (4.6-6.2); White Blood Count 6.9 K/mm3 (4.4-11.0)
[2024-01-01 18:00] LABS: Anion Gap 9 (5-15); BUN 7 mg/dL (7-18); BUN/Creat Ratio 12.2 RATIO (10-20); Calcium,Total 7.9 mg/dL (8.5-10.1); Chloride 82 mmol/L (98-107); Creatinine, Serum 0.57 mg/dL (0.70-1.30); EST Glomerular Filtration Rate 152 mL/min (>60); Est Glom Filt Rate - Afr Amer 184 mL/min (>60); Estimated Creatinine Clearance 117.78 ml/min; Glucose 118 mg/dL (74-106); Potassium 3.2 mmol/L (3.5-5.1); Sodium Level 116 mmol/L (136-145)
[2024-01-01] MEDS: Ondansetron 4 MG/2 ML Vial IV (20:21)
[2024-01-01] MEDS: 0.9% Saline Lock 10 ML Syringe IV (20:21)
--- OUTSIDE RECORDS SUMMARY | 2024-01-01 21:03 | XMS RPT_ITS | CCD ---
Author Name Unknown Address [address] [place] [address] Organization [facility] Care Team Providers Care Research Greenhouse Supervisor Name Role Phone Aracely ROWLEY, Danitza Diego Unavailable Unavailable Valerie Medeiros Unavailable Unavailable Roof DIRECTOR OF QUALITY IMPROVEMENT, Kurt Menon Unavailable BENJAMÍN Boyer, Karla Montiel Unavailable [phone] DeFinis, Harumi Y Unavailable Unavailable Tyler Johnston Unavailable Unavailable Tyler Johnston Unavailable Unavailable Medications Completed/Discontinued Medications Medication Drug Class(es) Dates Sig (Normalized) Sig (Original) aspirin 81 mg oral tablet (14 sources) Nonsteroidal Anti-inflammatory Drug Start: 04-24-2011 take 1 tablet by mouth once daily ASPIRIN 81 MG TABS One tablet by mouth daily ASPIRIN [id number] Trish Angel Problems Active Problems Problem Classification Problem Date Documented Date Episodic/Chronic Complication of device; implant or graft (14 sources) Arteriosclerosis of coronary artery bypass graft; Translations: [Atherosclerosis of coronary artery bypass graft(s) without angina pectoris] Onset: 1 01-13-2016 Chronic Coronary atherosclerosis and other heart disease (20 sources) Atherosclerotic heart disease of [place] coronary artery without angina pectoris; Translations: [Angina [...] (4 sources) Long-term drug therapy; Translations: [Other fdc (current) drug therapy] Onset: 1 04-24-2011 Unclassified [...] 09-16-2015 Episodic Other aftercare (3 sources) Other fdc (current) drug therapy; Translations: [Other intermodal customer service (current) drug therapy] Onset: 1 04-24-2011 Episodic [...] (Body Mass Index) 22.22 kg/m2 Kurt Quintero DIRECTOR OF QUALITY IMPROVEMENT [facility] Work Phone: 11-16-2016 13:06-0500 BP Diastolic 70 mm[Hg] Kurt Quintero DIRECTOR OF QUALITY IMPROVEMENT [facility] Work Phone: 11-16-2016 13:06-0500 BP Systolic 120 mm[Hg] Kurt Quintero DIRECTOR OF QUALITY IMPROVEMENT [facility] Work Phone: 11-16-2016 13:06-0500 BSA (Body Surface Area) 1.87 m2 Kurt Quintero DIRECTOR OF QUALITY IMPROVEMENT [facility] Work Phone: 11-16-2016 13:06-0500 Pulse (Heart Rate) 72 /min Kurt Quintero DIRECTOR OF QUALITY IMPROVEMENT [facility] Work Phone: 11-16-2016 13:06-0500 Respiratory Rate 12 /min Kurt Quintero DIRECTOR OF QUALITY IMPROVEMENT [facility] Work Phone: 11-16-2016 13:06-0500 Weight 70.26 kg Kurt Quintero DIRECTOR OF QUALITY IMPROVEMENT [facility] Work Phone: 05-17-2016 11:04-0400 Body Temperature 98.1 [degF] Kurt Quintero DIRECTOR OF QUALITY IMPROVEMENT [facility] Work Phone: 09-16-2015 12:06-0500 Height 177.8 cm Kurt Quintero DIRECTOR OF QUALITY IMPROVEMENT [facility] Work Phone: 04-29-2013 13:52-0400 Heart [...] End: 04-19-2016 *CHLGC - Chlamydia/GC DNA Probe [id number] Rick Petersenutzman DO Work Phone: Start: 04-19-2016 [...] End: 04-19-2016 *CHLGC - Chlamydia/GC DNA Probe [id number] Rick Petersenutzman DO Work Phone: Start: 04-19-2016 End: 04-19-2016 *BONITA - Fungus, BONITA Prep Rick Grantman DO Work Phone: Start: 04-19-2016 End: 04-27-2016 Urinalysis complete panel - Urine Rick Diego Yeimy DO Work Phone: Start: 04-19-2016 End: 04-19-2016 Urinalysis nonauto w/o scope Rick Diego Yeimy DO Work Phone: Start: 04-02-2016 End: 04-27-2016 *CMP Complete Metabolic Panel iRck Diego Yeimy DO Work Phone: Start: 04-02-2016 [...] Author Start: 12-02-2017 End: 12-02-2017 Appointment Appointment [facility] Work Phone: Start: 11-04-2017 End: 05-15-2017 *Hepatic Function Panel *Hepatic Function Panel [facility] Work Phone: Start: 11-04-2017 End: 05-15-2017 Lipid panel [AGGREGATE] *Lipid Profile CC PCP [facility] Work Phone: Start: 11-04-2017 End: 05-15-2017 *Hepatic Function Panel *Hepatic Function Panel [facility] Work Phone: Start: 11-04-2017 End: 05-15-2017 Lipid panel [AGGREGATE] *Lipid Profile CC PCP [facility] Work Phone: Start: 05-17-2017 End: 05-17-2017 *Hepatic Function Panel *Hepatic Function Panel [facility] Work Phone: Start: 05-17-2017 End: 05-17-2017 Follow Up Appt 6 months Follow Up Appt 6 months [facility] Work Phone: Start: 05-17-2017 End: 05-17-2017 Lipid panel [AGGREGATE] *Lipid Profile CC PCP [facility] Work Phone: Start: 05-17-2017 End: 05-17-2017 PFM PFM [facility] Work Phone: Start: 05-17-2017 End: 05-17-2017 Appointment Appointment [facility] Work Phone: Start: 05-17-2017 End: 05-17-2017 *Hepatic Function Panel *Hepatic Function Panel [facility] Work Phone: Start: 05-17-2017 End: 05-17-2017 Follow Up Appt 6 months Follow Up Appt 6 months [facility] Work Phone: Start: 05-17-2017 End: 05-17-2017 Lipid 1996 panel *Lipid Profile CC PCP [facility] Work Phone: Start: 05-17-2017 End: 05-17-2017 PFM PFM [facility] Work Phone: Start: 11-16-2016 End: 05-03-2017 *Hepatic Function Panel *Hepatic Function Panel [facility] Work Phone: Start: 11-16-2016 End: 05-07-2017 Ecg routine ecg w/least 12 lds w/i&r EKG (In office) [facility] Work Phone: Start: 11-16-2016 End: 11-21-2016 Follow Up Appt 6 months Follow Up Appt 6 months [facility] Work Phone: Start: 11-16-2016 End: 05-03-2017 Lipid panel [AGGREGATE] *Lipid Profile CC PCP [facility] Work Phone: Start: 11-16-2016 End: 11-21-2016 PFM PFM [facility] Work Phone: Start: 11-16-2016 End: 05-03-2017 *Hepatic Function Panel *Hepatic Function Panel [facility] Work Phone: Start: 11-16-2016 End: 05-07-2017 Electrocardiogram, complete EKG (In office) [facility] Work Phone: Start: 11-16-2016 End: 11-21-2016 Follow Up Appt 6 months Follow Up Appt 6 months [facility] Work Phone: Start: 11-16-2016 End: 05-03-2017 Lipid panel [AGGREGATE] *Lipid Profile CC PCP [facility] Work Phone: Start: 11-16-2016 End: 11-21-2016 PFM PFM [facility] Work Phone: Start: 05-16-2016 End: 05-16-2016 Follow Up Appt 6 months Follow Up Appt 6 months [facility] Work Phone: Start: 05-16-2016 End: 05-16-2016 PFM PF [facility] Work Phone: Start: 05-16-2016 End: 05-16-2016 Follow Up Appt 6 months Follow Up Appt 6 months [facility] Work Phone: Start: 05-16-2016 End: 05-16-2016 PF PF [facility] Work Phone: Start: 04-19-2016 End: 04-19-2016 *CHLGC - Chlamydia/GC DNA Probe [id number] *CHLGC - Chlamydia/GC DNA Probe [id number] [facility] Work Phone: Start: 04-19-2016 End: 04-19-2016 *BONITA - Fungus, BONITA Prep *BONITA - Fungus, BONITA Prep [facility] Work Phone: Start: 04-19-2016 End: 04-19-2016 Urinalysis complete panel - Urine *UAC- Urinalysis, Complete w/ Micro [facility] Work Phone: Start: 04-19-2016 End: 04-19-2016 *CHLGC - Chlamydia/GC DNA Probe [id number] *CHLGC - Chlamydia/GC DNA Probe [id number] [facility] Work Phone: Start: 04-19-2016 End: 04-19-2016 *BONITA - Fungus, BONITA Prep *BONITA - Fungus, BONITA Prep [facility] Work Phone: Start: 04-19-2016 End: 04-19-2016 Urinalysis complete panel - Urine *UAC- Urinalysis, Complete w/ Micro [facility] Work Phone: Start: 04-02-2016 End: 04-19-2016 *CMP Complete Metabolic Panel *CMP Complete Metabolic Panel [facility] Work Phone: Start: 04-02-2016 End: 04-19-2016 Lipid panel [AGGREGATE] *Lipid Profile [facility] Work Phone: Start: 04-02-2016 End: 04-19-2016 *CMP Complete Metabolic Panel *CMP Complete Metabolic Panel [facility] Work Phone: Start: 04-02-2016 End: 04-19-2016 Lipid panel [AGGREGATE] *Lipid Profile [facility] Work Phone: Start: 09-16-2015 End: 09-16-2015 Follow Up Appt 6 months Follow Up Appt 6 months [facility] Work Phone: Start: 09-16-2015 End: 09-16-2015 PFM PFM [facility] Work Phone: Start: 09-16-2015 End: 09-16-2015 Follow Up Appt 6 months Follow Up Appt 6 months [facility] Work Phone: Start: 09-16-2015 End: 09-16-2015 PFM PFM [facility] Work Phone: Start: 01-07-2015 End: 01-07-2015 Follow Up Appt 6 months Follow Up Appt 6 months [facility] Work Phone: Start: 01-07-2015 End: 05-07-2017 Follow Up Appt Other Follow Up Appt Other [facility] Work Phone: Start: 01-07-2015 End: 01-07-2015 PFM PFM [facility] Work Phone: Start: 01-07-2015 End: 01-07-2015 Follow Up Appt 6 months Follow Up Appt 6 months [facility] Work Phone: Start: 01-07-2015 End: 05-07-2017 Follow Up Appt Other Follow Up Appt Other [facility] Work Phone: Start: 01-07-2015 End: 01-07-2015 PFM PFM [facility] Work Phone: Start: 06-30-2014 End: 06-30-2014 Follow Up Appt 6 months Follow Up Appt 6 months [facility] Work Phone: Start: 06-30-2014 End: 06-30-2014 PFM PFM [facility] Work Phone: Start: 06-30-2014 End: 06-30-2014 Follow Up Appt 6 months Follow Up Appt 6 months [facility] Work Phone: Start: 06-30-2014 End: 06-30-2014 PFM PFM [facility] Work Phone: Start: 12-14-2013 End: 12-14-2013 Follow Up Appt 6 months Follow Up Appt 6 months [facility] Work Phone: Start: 12-14-2013 End: 06-30-2014 Follow Up Appt Other Follow Up Appt Other [facility] Work Phone: Start: 12-14-2013 End: 12-14-2013 PFM PFM [facility] Work Phone: Start: 12-14-2013 End: 12-14-2013 Follow Up Appt 6 months Follow Up Appt 6 months [facility] Work Phone: Start: 12-14-2013 End: 06-30-2014 Follow Up Appt Other Follow Up Appt Other [facility] Work Phone: Start: 12-14-2013 End: 12-14-2013 PFM PFM [facility] Work Phone: Start: 04-29-2013 End: 04-29-2013 Ecg routine ecg w/least 12 lds w/i&r EKG (In office) [facility] Work Phone: Start: 04-29-2013 End: 04-29-2013 Follow Up Appt 6 months Follow Up Appt 6 months [facility] Work Phone: Start: 04-29-2013 [...] [facility] Work Phone: Start: 04-29-2013 End: 05-07-2017 Follow Up Appt Other Follow Up Appt Other [facility] Work Phone: Start: 04-29-2013 End: 04-29-2013 PFM PFM [facility] Work Phone: Start: 01-26-2013 End: 02-15-2014 *Hepatic Function Panel *Hepatic Function Panel [facility] Work Phone: Start: 01-26-2013 End: 02-15-2014 Lipid panel [AGGREGATE] *Lipid Profile [facility] Work Phone: Start: 01-26-2013 End: 02-15-2014 *Hepatic Function Panel *Hepatic Function Panel [facility] Work Phone: Start: 01-26-2013 End: 02-15-2014 Lipid panel [AGGREGATE] *Lipid Profile [facility] Work Phone: Start: 09-29-2012 End: 08-30-2015 *Hepatic Function Panel *Hepatic Function Panel [facility] Work Phone: Start: 09-29-2012 End: 05-07-2017 Follow Up Appt 6 months Follow Up Appt 6 months [facility] Work Phone: Start: 09-29-2012 End: 08-30-2015 Lipid panel [AGGREGATE] *Lipid Profile [facility] Work Phone: Start: 09-29-2012 End: 08-30-2015 *Hepatic Function Panel *Hepatic Function Panel [facility] Work Phone: Start: 09-29-2012 End: 05-07-2017 Follow Up Appt 6 months Follow Up Appt 6 months [facility] Work Phone: Start: 09-29-2012 End: 08-30-2015 Lipid panel [AGGREGATE] *Lipid Profile [facility] Work Phone: Start: 02-28-2012 End: 08-06-2012 *Hepatic Function Panel *Hepatic Function Panel [facility] Work Phone: Start: 02-28-2012 [...] 08-06-2012 *Hepatic Function Panel *Hepatic Function Panel [facility] Work Phone: Start: 02-28-2012 [...] BE BASED ON THE PRIMARY CLINICAL RECORDS. [email or web address] provides no warranty or guarantee of the accuracy or completeness of information in this document.
[2024-01-01 22:17] LABS: Magnesium 1.9 mg/dL (1.6-2.6)
[2024-01-01] MEDS: Atorvastatin Calcium 10 MG Tablet 5 MG PO (22:22)
[2024-01-01] MEDS: Sodium Chloride 1 GM Tablet PO (22:22)
[2024-01-01] MEDS: MELATONIN 10 MG TABLET PO (22:23)
[2024-01-01] MEDS: Lisinopril 10 MG Tablet PO (22:29)
[2024-01-01] MEDS: Potassium Chloride Oral Tablet 20 MEQ 40 MEQ PO (22:29)
[2024-01-02] VITALS (8 sets, daily range): BP systolic 145–174; BP diastolic 83–93; PULSE 64–80; RESP 16; TEMP 36.1–36.6; O2SAT 96–99; BMI 20.2
[2024-01-02 06:48] LABS: Absolute Lymphocyte Count 1.45 X10^3/uL (0.83-4.51); Absolute Neutrophil Count 5.2 X10^3/uL (2.0-7.7); Basophil# 0.03 X10^3/uL; Basophil% 0.4 % (0-1); Eosinophil# 0.04 X10^3/uL; Eosinophils% 0.5 % (0-5); Hematocrit 35.9 % (40-54); Hemoglobin 13.1 g/dL (13.0-16.5); Lymphocyte # 1.45 X10^3/ul (0.83-4.51); Lymphocyte % 19.8 % (19-41); Mean Corp Hgb Conc 36.5 g/dL (32-36); Mean Corpuscular Hgb 31.8 pg (27.0-32.0); Mean Corpuscular Volume 87.1 fL (80-94); Mean Platelet Vol. 10.4 fl (6.2-12.0); Monocyte# 0.63 X10^3/uL; Monocyte% 8.6 % (0-10); NRBC Flagged by Analyzer 0 % (0-5); Neutrophil # 5.15 X10^3/uL (2.7-7.7); Neutrophil % 70.3 % (47-70); Platelet Count 173 K/mm3 (150-450); RBC Distribution Width CV 11.7 % (11.6-14.6); RBC Distribution Width SD 37.7 fl (35.1-43.9); Red Blood Count 4.12 M/mm3 (4.6-6.2); White Blood Count 7.3 K/mm3 (4.4-11.0)
[2024-01-02 07:56] LABS: ALB/GLOB Ratio 0.9 RATIO (0.9-2.4); AST(SGOT) 25 U/L (15-37); Alanine Aminotransfer ALT/SGPT 30 U/L (16-61); Albumin, Serum 3.3 g/dL (3.2-5.0); Alkaline Phosphatase 105 U/L (45-117); Anion Gap 9 (5-15); BUN 6 mg/dL (7-18); BUN/Creat Ratio 11.2 RATIO (10-20); Calcium,Total 8.3 mg/dL (8.5-10.1); Chloride 83 mmol/L (98-107); Creatinine, Serum 0.54 mg/dL (0.70-1.30); EST Glomerular Filtration Rate 164 mL/min (>60); Est Glom Filt Rate - Afr Amer 198 mL/min (>60); Estimated Creatinine Clearance 124.71 ml/min; Globulin 3.6 g/dL (2.2-4.2); Glucose 89 mg/dL (74-106); Phosphorus 2.5 mg/dL (2.5-4.9); Potassium 4.1 mmol/L (3.5-5.1); Protein, Total 6.9 g/dL (6.4-8.2); Sodium Level 116 mmol/L (136-145); Thyroid Stim Hormone (TSH) 0.63 uIU/mL (0.358-3.74)
[2024-01-02] MEDS: Multivitamins,Therapeutic Tablet 1 TABLET PO (09:00)
[2024-01-02] MEDS: Atenolol 25 MG Tablet PO (09:00)
[2024-01-02] MEDS: Aspirin E.C. 81 MG Tablet PO (09:00)
[2024-01-02] MEDS: Sodium Chloride 1 GM Tablet PO ×2 (09:00→15:04)
[2024-01-02] MEDS: Acetaminophen 325 MG Tablet 650 MG PO ×2 (09:01→15:04)
[2024-01-02] MEDS: Ondansetron 4 MG/2 ML Vial IV ×2 (09:01→18:05)
[2024-01-02] MEDS: guaiFENesin 10 ML UDC (200MG/10ML) 20 ML PO (09:08)
--- NOTE | 2024-01-02 10:11 | PCM.PN.HOSP ---
Reason for Visit Reason for Visit: Diagnoses Hypo-osmolality and hyponatremia (01/01/24) Influenza due to unidentified influenza virus with other respiratory manifestations (01/01/24) Weakness (01/01/24) Personal history of other endocrine, nutritional and metabolic disease (01/01/24) Objective Data Objective Data Vital Signs: Vital Signs Temp Pulse Resp BP Pulse Ox O2 Del Method 97.2 F L 71 16 164/88 H 99 Room Air 01/02/24 08:50 01/02/24 08:50 01/02/24 08:50 01/02/24 08:50 01/02/24 08:50 01/02/24 08:50 Oxygen Delivery Method Room Air Weight: 140 lb 10.479 oz Body Mass Index (BMI) 20.2 Intake & Output: Intake and Output for Last 24 Hours 12/31/23 01/01/24 01/02/24 23:59 23:59 23:59 Intake Total 333.33 / 333.33 Balance 333.33 / 333.33 Lab / Micro Data 01/02/24 05:55 01/02/24 05:55 Labs: Laboratory Results - last 24 hr 01/01/24 12:28: WBC 6.9, RBC 4.01 L, Hgb 13.2, Hct 35.9 L, MCV 89.5, MCH 32.9 H, MCHC 36.8 H, RDW Std Deviation 39.8, RDW Coeff of Murphy 12.1, Plt Count 211, MPV 11.5, Immature Gran % (Auto) 0.400, Neut % (Auto) 74.5 H, Lymph % (Auto) 15.7 L, Flagler % (Auto) 8.7, Eos % (Auto) 0.4, Baso % (Auto) 0.3, Absolute Neuts (auto) 5.1, Absolute Lymphs (auto) 1.08, Nucleated RBC % 0.3, Sodium 115 L*, Potassium 4.3, Chloride 83 L, Carbon Dioxide 26.0, Anion Gap 6, BUN 8, Creatinine 0.68 L, Estim Creat Clear Calc 101.99, Est GFR (MDRD) Af Amer 151, Est GFR (MDRD) Non-Af 125, BUN/Creatinine Ratio 11.8, Glucose 121 H, Calcium 8.3 L 01/01/24 13:31: Serum Osmolality 241 L 01/01/24 13:50: Urine Osmolality 351 01/01/24 17:30: Sodium 116 L*, Potassium 3.2 L, Chloride 82 L, Carbon Dioxide 25.0, Anion Gap 9, BUN 7, Creatinine 0.57 L, Estim Creat Clear Calc 117.78, Est GFR (MDRD) Af Amer 184, Est GFR (MDRD) Non-Af 152, BUN/Creatinine Ratio 12.2, Glucose 118 H, Calcium 7.9 L, Magnesium 1.9 01/02/24 05:55: WBC 7.3, RBC 4.12 L, Hgb 13.1, Hct 35.9 L, MCV 87.1, MCH 31.8, MCHC 36.5 H, RDW Std Deviation 37.7, RDW Coeff of Murphy 11.7, Plt Count 173, MPV 10.4, Immature Gran % (Auto) 0.400, Neut % (Auto) 70.3 H, Lymph % (Auto) 19.8, Flagler % (Auto) 8.6, Eos % (Auto) 0.5, Baso % (Auto) 0.4, Absolute Neuts (auto) 5.2, Absolute Lymphs (auto) 1.45, Nucleated RBC % 0, Sodium 116 L*, Potassium 4.1, Chloride 83 L, Carbon Dioxide 24.0, Anion Gap 9, BUN 6 L, Creatinine 0.54 L, Estim Creat Clear Calc 124.71, Est GFR (MDRD) Af Amer 198, Est GFR (MDRD) Non-Af 164, BUN/Creatinine Ratio 11.2, Glucose 89, Calcium 8.3 L, Phosphorus 2.5, Magnesium 2.0, Total Bilirubin 1.10 H, AST 25, ALT 30, Alkaline Phosphatase 105, Total Protein 6.9, Albumin 3.3, Globulin 3.6, Albumin/Globulin Ratio 0.9, TSH 0.63 Assessment & Plan Assessment/Plan (1) Hyponatremia: (2) History of SIADH: (3) Influenza: (4) Generalized weakness: PLAN: Plan Patient came to ED with generalized weakness, decreased appetite, mild headache, decreased urine output, dizziness since diagnosed with influenza on December 28. No improvement in symptoms despite taking Tamiflu. Acute on chronic hyponatremia: -Patient has been diagnosed with SIADH and typically follows fluid restriction and follows Dr. Judy Guan. Currently patient looks dehydrated with poor solute intake and decreased appetite therefore IV fluid normal saline -P.o. intake has been poor with regards to solute and I suspect that he has had decreased solute and ongoing fluid intake resulting in worsening of his hyponatremia. IV fluid ordered. Repeat sodium is ordered every 4 hourly. Patient on sodium tablet. History of SIADH -As above -Managed with fluid restriction at baseline -Baseline sodium runs between 128 and 130 over the last year Influenza A -Diagnosed on 12/29/2023 -Has been on Tamiflu since that point in time -Has 5 tablets left we will continue -Supportive care with as needed antitussive and nebulizers Generalized weakness -Likely related to influenza A plus hyponatremia -PT consultation -Should improve with improvement in sodium and as he recovers from his influenza infection -Will check CBC to rule out any anemia that could be contributing CAD/HTN/HPL -01/11/2010 KNOTT to LAD, EDYTA insitu to the RCA and SVG to , SVG to [facility] per Dr. Rubio -Continue home aspirin -Continue home atenolol -Continue home atorvastatin -Continue home lisinopril COPD -Patient is not oxygen dependent and takes no inhalers for this at baseline -Recommend outpatient follow-up if symptoms change History of tobacco abuse -Recommend ongoing cessation -As needed albuterol as patient did have some wheezing on presentation likely related to his influenza A infection -Quit smoking in 2009 but has [id number] history DVT prophylaxis -Lovenox subcu daily CODE STATUS -Full code is verified on admission Charges/Coding Visit Charges Inpatient E&M: 59893 Subs Hosp L2
[2024-01-02] MEDS: 0.9% Normal Saline (1000mL) 1,000 ML 75 ML IV (11:14)
--- NOTE | 2024-01-02 12:18 | CON.PCM.RE_ITS ---
Assessment & Plan Assessment/Plan (1) Hyponatremia: PLAN: sodium 116 exacerbated from influenza, pulmonary symptoms with cough, wheezing. Poor intake, anorexia, nausea. Check urine sodium. May need hypertonic saline or dose of tolvaptan if hyponatremia worsens. (2) Influenza: PLAN: supportive care, iv fluids. treated with tamiflu (3) History of SIADH: PLAN: sodium 129 in September 2023 (4) Essential hypertension: PLAN: resume home meds (5) Atherosclerotic heart disease of tetlin coronary artery without angina pectoris: QUALIFIERS: Ruby vs. transplanted heart: tetlin heart Qualified Code(s): I25.10 - Atherosclerotic heart disease of tetlin coronary artery without angina pectoris HPI Consult Data Date of Consult: 01/02/24 HPI Narrative Reason for Consultation: hyponatremia HPI Narrative: JORGE A LINTON, is a 63 M who presents to [facility] ED for persistent weakness, lightheadedness, poor appetite, nausea since Saturday. Seen in urgent care and was diagnosed with influenza treated wtih tamiflu. Complains of myalgias, fever, chills, cough with wheezing. Sodium low at 116. Hx of SIADH with sodium at 129. Currently on NSS. Creatinine 0.54. Denies sick contacts at home. 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 [facility] Medical History Atherosclerotic heart disease of tetlin coronary artery without angina pectoris Carotid bruit COPD (chronic obstructive pulmonary disease) Essential hypertension History of SIADH Hyperlipidemia Hypertension Home Medications aspirin 81 mg tablet,delayed release (Adult Aspirin Regimen) 81 mg PO QDAY heart 11/29/17 [History Last Taken 10/31/19] coenzyme Q10 100 mg capsule (Co Q-10) 100 mg PO QDAY vitamin 11/29/17 [History Last Taken 11/01/19] multivitamin 1 tab PO QDAY vitamin 11/29/17 [History Last Taken 11/01/19] omega-3 fatty acids 1,000 mg capsule (Fish Oil Concentrate) 1,000 mg PO QDAY [facility] 11/29/17 [History Last Taken 11/01/19] atorvastatin 10 mg tablet See Rx Instructions .Route .COMPLEX #45 tabs 01/07/23 [Rx Last Taken Unknown] lisinopril 10 mg tablet See Rx Instructions .Route .COMPLEX #90 tabs 07/11/23 [Rx Last Taken Unknown] oseltamivir 75 mg capsule (Tamiflu) 75 mg PO Q12H 5 days #10 caps 12/29/23 [Rx Last Taken Unknown] atenolol 25 mg tablet 25 mg PO QDAY #90 tabs 12/31/23 [Rx Last Taken Unknown] Allergy/AdvReac Type Severity Reaction Status Date / Time ibuprofen [From Advil] AdvReac Intermediate SOB Verified 01/01/24 11:53 Family History Father CAD (coronary artery disease) S/P CABG (coronary artery bypass graft) Mother CAD (coronary artery disease) Hypertension Kidney disease Brother CAD (coronary artery disease) S/P CABG (coronary artery bypass graft) Sister S/P CABG (coronary artery bypass graft) CAD (coronary artery disease) Diabetes Surgical History History of coronary artery bypass surgery (~01/11/10) History of hand surgery History of left heart catheterization History of tonsillectomy Social History (Updated 01/01/24 @ 18:13 by Karla Guo) household members: spouse Smoking Status: Former smoker quit date: 10/28/09 pack-years: 30 alcohol intake: never substance use type: does not use caffeine: Yes Type: coffee Number of servings: 2 ROS Constitutional Constitutional: Reports chills, fever(s), malaise and weakness Cardiovascular Cardiovascular: Denies chest pain or leg edema Respiratory/Chest Respiratory/Chest: Reports productive cough and wheezing; Denies shortness of breath at rest Gastrointestinal Gastrointestinal: Reports anorexia and nausea; Denies abdominal pain or diarrhea Genitourinary Genitourinary: Denies dysuria, flank pain or hematuria Musculoskeletal Musculoskeletal: Reports myalgias and other Details: fatigue, weakness Psychiatric Psychiatric: Denies anxiety or confusion Endocrine Endocrinology: Reports fatigue Hematologic/Lymphatic Hematologic/Lymphatic: Denies anemia Physical Exam Const alert, oriented x3 and no apparent distress Constitutional Narrative: gen weakness HEENT normocephalic Resp Auscultation: rhonchi and wheezes Cardio regular rate GI non-tender and non-distended Auscultation: normoactive bowel sounds Palpation: soft Extremity no clubbing, cyanosis or edema Skin no rashes or lesions noted Neuro CN's II-XII intact bilaterally Neuro Narrative: gen weakness Psych cooperative Lab / Micro Data 01/02/24 05:55 01/02/24 05:55 Labs: Laboratory Results - last 24 hr 01/01/24 12:28: WBC 6.9, RBC 4.01 L, Hgb 13.2, Hct 35.9 L, MCV 89.5, MCH 32.9 H, MCHC 36.8 H, RDW Std Deviation 39.8, RDW Coeff of Murphy 12.1, Plt Count 211, MPV 11.5, Immature Gran % (Auto) 0.400, Neut % (Auto) 74.5 H, Lymph % (Auto) 15.7 L, Rooks % (Auto) 8.7, Eos % (Auto) 0.4, Baso % (Auto) 0.3, Absolute Neuts (auto) 5.1, Absolute Lymphs (auto) 1.08, Nucleated RBC % 0.3, Sodium 115 L*, Potassium 4.3, Chloride 83 L, Carbon Dioxide 26.0, Anion Gap 6, BUN 8, Creatinine 0.68 L, Estim Creat Clear Calc 101.99, Est GFR (MDRD) Af Amer 151, Est GFR (MDRD) Non-Af 125, BUN/Creatinine Ratio 11.8, Glucose 121 H, Calcium 8.3 L 01/01/24 13:31: Serum Osmolality 241 L 01/01/24 13:50: Urine Osmolality 351 01/01/24 17:30: Sodium 116 L*, Potassium 3.2 L, Chloride 82 L, Carbon Dioxide 25.0, Anion Gap 9, BUN 7, Creatinine 0.57 L, Estim Creat Clear Calc 117.78, Est GFR (MDRD) Af Amer 184, Est GFR (MDRD) Non-Af 152, BUN/Creatinine Ratio 12.2, Gl ucose 118 H, Calcium 7.9 L, Magnesium 1.9 01/02/24 05:55: WBC 7.3, RBC 4.12 L, Hgb 13.1, Hct 35.9 L, MCV 87.1, MCH 31.8, MCHC 36.5 H, RDW Std Deviation 37.7, RDW Coeff of Murphy 11.7, Plt Count 173, MPV 10.4, Immature Gran % (Auto) 0.400, Neut % (Auto) 70.3 H, Lymph % (Auto) 19.8, Rooks % (Auto) 8.6, Eos % (Auto) 0.5, Baso % (Auto) 0.4, Absolute Neuts (auto) 5.2, Absolute Lymphs (auto) 1.45, Nucleated RBC % 0, Sodium 116 L*, Potassium 4.1, Chloride 83 L, Carbon Dioxide 24.0, Anion Gap 9, BUN 6 L, Creatinine 0.54 L , Estim Creat Clear Calc 124.71, Est GFR (MDRD) Af Amer 198, Est GFR (MDRD) Non- Af 164, BUN/Creatinine Ratio 11.2, Glucose 89, Calcium 8.3 L, Phosphorus 2.5, Magnesium 2.0, Total Bilirubin 1.10 H, AST 25, ALT 30, Alkaline Phosphatase 105, Total Protein 6.9, Albumin 3.3, Globulin 3.6, Albumin/Globulin Ratio 0.9, TSH 0.63
[2024-01-02 13:35] LABS: Urine Sodium 52 mmol/L (Not Establ.)
--- NOTE | 2024-01-02 13:40 | CASEMGMT ---
RN CM Face to Face with patient for initial transition planning/care coordination assessment. RN CM introduced self and role at [facility]. Patient lying in bed, alert and oriented. Patient willing to participate in assessment and is able to answer all questions appropriately. Care providers, pharmacy, and demographics verified. PCP: [facility] Specialists: Roge, bowling or skating front desk clerk; LINNEA, microbiology lab analyst Preferred Pharmacy: [facility] retail at discharge. Insurance: MMO Prescription Benefit: yes Living Will/HPOA: Yes, Bettina Rivera LNOK: , son Living Arrangements: Patient lives with in a 2 story home with access to bed and bath on first floor. Patient is independent and able to ambulate stairs. Transportation: self, DME/HHC: Patient has shower chair and grab bars at home. Patient denies previous HHC or SNF. Patient wishes to discharge home, denies need for home health at this time. Patient states he has no further needs or concerns at this time. CM to follow for discharge planning needs that may arise. Disposition Plan: Patient to discharge home with family support and follow-up plans in place Jennifer CHRISTIANSEN, RN, CM
--- NOTE | 2024-01-02 16:03 | CHAPLAIN ---
Type of Pastoral Visit _x__ Initial Visit ___ Follow-up Visit ___ On-call Visit ___ General Patient Visit ___ Spiritual Assessment ___ Family Conference ___ Bereavement ___ Rapid Response ___ Code Blue ___ Other (describe below) Pastoral Care Referral From _x__ Patient ___ Family ___ Nurse ___ Physician ___ Acetaldehyde Converter Operator ___ Supervisor Food Checkers And Cashiers ___ Other (describe below) Sacrament/Intervention _x__ Active listening ___ Anointing ___ Confucianism ___ Bereavement ___ Communion _x__ Gayle exploration ___ ___ Life review _x__ Prayer ___ Reconciliation ___ Sacrament of Sick _x__ Supportive presence ___ Wedding ___ Other (describe below) Pastoral Comments patient gives insights into his gayle journey and current connection with a local congregational; spouse is with patient and shows support; pt has had a previous episode as this one and admits to how it knocks me down and impacts me ; pt talks about his life and is expressive of gayle and appreciation for spiritual care; prayer is given as well as presence
[2024-01-02] MEDS: Lisinopril 20 MG Tablet PO (16:58)
[2024-01-02 18:32] LABS: Sodium Level 114 mmol/L (136-145)
[2024-01-02] MEDS: TOLVAPTAN 15 MG TABLET PO (20:35)
[2024-01-02] MEDS: Atorvastatin Calcium 10 MG Tablet 5 MG PO (21:41)
[2024-01-02] MEDS: MELATONIN 10 MG TABLET PO (21:41)
[2024-01-02 22:03] LABS: Sodium Level 116 mmol/L (136-145)
[2024-01-02] MEDS: 0.9% Normal Saline (1000mL) 1,000 ML 100 ML IV (22:15)
[2024-01-03] VITALS: BP 136/87; PULSE 77; RESP 18; TEMP 36.4; O2SAT 98
[2024-01-03 02:02] LABS: Sodium Level 122 mmol/L (136-145)
[2024-01-03 04:11] VITALS: BP 146/86; PULSE 84; RESP 18; TEMP 36.5; O2SAT 98
[2024-01-03 04:29] VITALS: BMI 20.2
[2024-01-03 06:43] LABS: Absolute Lymphocyte Count 1.18 X10^3/uL (0.83-4.51); Absolute Neutrophil Count 3.5 X10^3/uL (2.0-7.7); Basophil# 0.02 X10^3/uL; Basophil% 0.4 % (0-1); Eosinophil# 0.03 X10^3/uL; Eosinophils% 0.6 % (0-5); Hematocrit 35.2 % (40-54); Hemoglobin 12.6 g/dL (13.0-16.5); Lymphocyte # 1.18 X10^3/ul (0.83-4.51); Lymphocyte % 22.5 % (19-41); Mean Corp Hgb Conc 35.8 g/dL (32-36); Mean Corpuscular Hgb 31.6 pg (27.0-32.0); Mean Corpuscular Volume 88.2 fL (80-94); Monocyte# 0.52 X10^3/uL; Monocyte% 9.9 % (0-10); NRBC Flagged by Analyzer 0 % (0-5); Neutrophil # 3.46 X10^3/uL (2.7-7.7); Platelet Count 174 K/mm3 (150-450); RBC Distribution Width CV 11.6 % (11.6-14.6); RBC Distribution Width SD 37.7 fl (35.1-43.9); Red Blood Count 3.99 M/mm3 (4.6-6.2); White Blood Count 5.2 K/mm3 (4.4-11.0)
[2024-01-03 07:35] LABS: Anion Gap 10 (5-15); BUN 7 mg/dL (7-18); BUN/Creat Ratio 12.9 RATIO (10-20); Calcium,Total 8.2 mg/dL (8.5-10.1); Chloride 92 mmol/L (98-107); Creatinine, Serum 0.54 mg/dL (0.70-1.30); EST Glomerular Filtration Rate 161 mL/min (>60); Est Glom Filt Rate - Afr Amer 195 mL/min (>60); Glucose 95 mg/dL (74-106); Potassium 3.7 mmol/L (3.5-5.1); Sodium Level 126 mmol/L (136-145)
[2024-01-03 07:40] VITALS: O2SAT 97
--- NOTE | 2024-01-03 08:11 | PCM.PN.BLA ---
Progress Note sodium improved to 126 after received one dose of tolvaptan 15mg last night. vss acute hyponatremia due to SIADH improved. Recheck level as outpt in 1 week. ok to stop iv fluids when taking po well. influenza on tamiflu
[2024-01-03 09:09] VITALS: BP 146/82; PULSE 71; RESP 16; TEMP 36.4; O2SAT 98
[2024-01-03] MEDS: Aspirin E.C. 81 MG Tablet PO (09:12)
[2024-01-03] MEDS: Acetaminophen 325 MG Tablet 650 MG PO (09:12)
[2024-01-03] MEDS: guaiFENesin 10 ML UDC (200MG/10ML) 20 ML PO (09:12)
[2024-01-03] MEDS: Multivitamins,Therapeutic Tablet 1 TABLET PO (09:12)
[2024-01-03] MEDS: Atenolol 25 MG Tablet PO (09:12)
[2024-01-03] MEDS: Ondansetron 4 MG/2 ML Vial IV (09:12)
[2024-01-03] MEDS: 0.9% Normal Saline (1000mL) 1,000 ML 100 ML IV (09:14)
--- NOTE | 2024-01-03 10:53 | CASEMGMT ---
Social Work Both living will and healthcare POA forms scanned into [employer], Bettina Rivera is listed as pt's healthcare power of assistant county attorney. TORRIE Loza
--- NOTE | 2024-01-03 12:06 | CHAPLAIN ---
Type of Pastoral Visit ___ Initial Visit ___ Follow-up Visit ___ On-call Visit _x__ General Patient Visit ___ Spiritual Assessment ___ Family Conference ___ Bereavement ___ Rapid Response ___ Code Blue ___ Other (describe below) Pastoral Care Referral From _x__ Patient ___ Family ___ Nurse ___ Physician ___ Ball Racker ___ Ballistics Teacher ___ Other (describe below) Sacrament/Intervention _x__ Active listening ___ Anointing ___ Druze ___ Bereavement ___ Communion ___ Gayle exploration ___ ___ Life review ___ Prayer ___ Reconciliation ___ Sacrament of Sick ___ Supportive presence ___ Wedding ___ Other (describe below) Pastoral Comments patient and spouse are walking the halls; both stopped to talk with this university services program associate and give updated report on better health today; pt is encouraged by progress and expresses thanks for the encouragement
--- NOTE | 2024-01-03 13:07 | PCM.DC ---
Discharge Instructions Diet Discharge Diet: No restrictions and 8 Cup Fluid Restriction (After 2 days) Activity Discharge Activity: Return to Normal Activity Weight Bearing Status: Weight bearing as tolerated Dressing / Incision Call your doctor if you observe: Fever of 101 or Higher, Coldness, Increased Pain, Numbness or Tingling, Change in Color, Inability to urinate, Inability to have a bowel movement, Shortness of breath, Dizziness, Fainting spells, Swelling in the ankles, Chest pain, Prolonged hiccupping, Increased palpitations (irregular heartbeat) and Calf discomfort Follow Up Care When: IN 2 WEEKS Test Results: Test results from this visit will be discussed in further detail at your follow-up appointment, if applicable. Discharge Plan Admission Admit Date/Time: 01/01/24 16:33 Primary Reason for Your Visit: severe hyponatremia, SIADH mediated Attending Provider: Bull Gusman Primary Care Provider: Rick Gaffney Consulting Providers: Josee Guan; Judy Guan Discharge Orders/Prescriptions Prescriptions: Continued coenzyme Q10 [Co Q-10] 100 mg capsule 100 mg PO QDAY aspirin [Adult Aspirin Regimen] 81 mg tablet,delayed release (DR/EC) 81 mg PO QDAY omega-3 fatty acids [Fish Oil Concentrate] 1,000 mg capsule 1,000 mg PO QDAY multivitamin tablet 1 tab PO QDAY lisinopril 10 mg tablet See Rx Instructions .ROUTE .COMPLEX Qty: 90 4RF Dose Instruction: TAKE 1 TABLET DAILY Rx Instructions: TAKE 1 TABLET DAILY oseltamivir [Tamiflu] 75 mg capsule 75 mg PO Q12H 5 Days Qty: 10 0RF atorvastatin 10 mg tablet See Rx Instructions .ROUTE .COMPLEX Qty: 45 4RF Dose Instruction: TAKE ONE-HALF (1/2) TABLET AT BEDTIME Rx Instructions: TAKE ONE-HALF (1/2) TABLET AT BEDTIME atenolol 25 mg tablet 25 mg PO QDAY Qty: 90 3RF Referrals / Follow Up: Judy Guan DO [Med Staff - Consulting] - Within 1 Month (For isovolemic hyponatremia, SIADH) Rick Gaffney DO [Primary Care Provider] - Disposition Disposition (needs filled in before D/C Order can be placed): Home, Self Care
--- NOTE | 2024-01-03 13:46 | DS.PCM_ITS ---
Providers Date of Admission: 01/01/24 Primary Care Physician: Dr. Rick Gaffney, Consultations 01/02/24 08:01 Consult: Nephrology Routine Consulting Provider: Judy Guan Reason for Consult: low sodium EMERGENT Consult: No MD Notified: Yes Date Notified: 01/02/24 Time Notified: 08:01 Method of Notification: Text Reason For Visit: SEVERE HYPONATREMIA/GENERALIZED WEAKNESS Diagnosis Discharge Diagnosis (1) Hyponatremia: Status: Acute Code(s): E87.1 - Hypo-osmolality and hyponatremia (2) Influenza: Status: Acute Code(s): J11.1 - Influenza due to unidentified influenza virus with other respiratory manifestations (3) History of SIADH: Status: Chronic Code(s): Z86.39 - Personal history of other endocrine, nutritional and metabolic disease (4) Essential hypertension: Status: Chronic Code(s): I10 - Essential (primary) hypertension (5) Atherosclerotic heart disease of [place] coronary artery without angina pectoris: Status: Chronic Code(s): I25.10 - Atherosclerotic heart disease of [place] coronary artery without angina pectoris Qualifiers: [place] vs. transplanted heart: [place] heart Qualified Code(s): I25.10 - Atherosclerotic heart disease of [place] coronary artery without angina pectoris Plan Patient came to ED with generalized weakness, decreased appetite, mild headache, decreased urine output, dizziness since diagnosed with influenza on December 28. No improvement in symptoms despite taking Tamiflu. Acute on chronic hyponatremia: -Patient has been diagnosed with SIADH and typically follows fluid restriction and follows Dr. Judy Guan. Currently patient looks dehydrated with poor solute intake and decreased appetite therefore IV fluid normal saline -P.o. intake has been poor with regards to solute and I suspect that he has had decreased solute and ongoing fluid intake resulting in worsening of his hyponatremia. IV fluid ordered. Repeat sodium is ordered every 4 hourly. Patient on sodium tablet. 01/02: Patient was seen by field marketing specialist. Patient had 15 mg 1 dose. His sodium increased from 1 22-1 26. Prior to that it was 116. Sodium tablet has been discontinued. IV fluid normal saline discontinued in the morning. Patient does not have neurological symptoms including headache, change in mental status confusion diplopia. Discussed with the field marketing specialist. Patient wants to go home and okay for discharge. History of SIADH -As above -Managed with fluid restriction at baseline -Baseline sodium runs between 128 and 130 over the last year Influenza A -Diagnosed on 12/29/2023 -Has been on Tamiflu since that point in time -Has 5 tablets left we will continue -Supportive care with as needed antitussive and nebulizers 01/02: Advised to complete the treatment of Tamiflu. Generalized weakness -Likely related to influenza A plus hyponatremia -PT consultation -Should improve with improvement in sodium and as he recovers from his influenza infection -Will check CBC to rule out any anemia that could be contributing CAD/HTN/HPL -01/11/2010 KNOTT to LAD, EDYTA insitu to the RCA and SVG to DX, SVG to [facility] per Dr. Rubio -Continue home aspirin -Continue home atenolol -Continue home atorvastatin -Continue home lisinopril COPD -Patient is not oxygen dependent and takes no inhalers for this at baseline -Recommend outpatient follow-up if symptoms change History of tobacco abuse -Recommend ongoing cessation -As needed albuterol as patient did have some wheezing on presentation likely related to his influenza A infection -Quit smoking in 2009 but has 46-piks-[id number] history DVT prophylaxis -Lovenox subcu daily CODE STATUS -Full code is verified on admission Discharge medication reconciliation done. Discharge follow-up instructions completed. Discharge process discussed with the patient and all questions were answered to patient's satisfaction. Follow with PCP in 1 to 2 weeks Total time spent, exact 35 minutes on discharge meds reconciliation, examination, coordination of care with nurses and ancillary staff, review of imaging and blood test and discussion with the patient on follow-up instructions. Medications at Discharge Home Medications aspirin 81 mg tablet,delayed release (Adult Aspirin Regimen) 81 mg PO QDAY heart 11/29/17 coenzyme Q10 100 mg capsule (Co Q-10) 100 mg PO QDAY vitamin 11/29/17 multivitamin 1 tab PO QDAY vitamin 11/29/17 omega-3 fatty acids 1,000 mg capsule (Fish Oil Concentrate) 1,000 mg PO QDAY heart [facility] 11/29/17 atorvastatin 10 mg tablet See Rx Instructions .Route .COMPLEX #45 tabs 01/07/23 lisinopril 10 mg tablet See Rx Instructions .Route .COMPLEX #90 tabs 07/11/23 oseltamivir 75 mg capsule (Tamiflu) 75 mg PO Q12H 5 days #10 caps 12/29/23 atenolol 25 mg tablet 25 mg PO QDAY #90 tabs 12/31/23 Physical Exam Narrative Seen and examined on the day of discharge. Wants to go home. Physical exam General: Alert, Oriented x3, Cooperative. Well-hydrated HEENT: Atraumatic, PERRLA, EOMI, Normocephalic Oral: No Gingival or Mucosal Lesions/ Ulcerations Neck: Supple, No JVD, Negative Carotid Bruits Chest wall/Lungs: Air entry diminished in bilateral lung bases. No crepitation/rhonchi. No hypoxia or tachypnea. Cardiovascular: Regular rate, Regular Rhythm, Normal S1, Normal S2, No M/G/R Abdomen: Bowel Sounds Present, Soft, Non Tender, Non-Distended : No dysuria. No renal angle tenderness. No suprapubic tenderness. Extremities: No edema, Capillary Refill Less than 3 Seconds Skin: No rashes, No breakdown Musculoskeletal: No Tenderness to Palpation of Joints or Extremities Neurological: Cranial nerves II-XII grossly intact, DTR 2+/4. No acute focal neurological deficit. Psych/Mental Status: Normal Affect, Appropriate. Weight / BMI Weight Weight: 141 lb 1.533 oz Body Mass Index (BMI) 20.2 ABG / Lab / Microbiology Data 01/03/24 05:50 01/03/24 05:50 Laboratory: Laboratory Results - last 24 hr 01/02/24 17:40: Sodium 114 L* 01/02/24 21:30: Sodium 116 L* 01/03/24 01:22: Sodium 122 L 01/03/24 05:50: WBC 5.2, RBC 3.99 L, Hgb 12.6 L, Hct 35.2 L, MCV 88.2, MCH 31.6, MCHC 35.8, RDW Std Deviation 37.7, RDW Coeff of Murphy 11.6, Plt Count 174, MPV 10.0, Immature Gran % (Auto) 0.600, Neut % (Auto) 66.0, Lymph % (Auto) 22.5, [place] % (Auto) 9.9, Eos % (Auto) 0.6, Baso % (Auto) 0.4, Absolute Neuts (auto) 3.5, Absolute Lymphs (auto) 1.18, Nucleated RBC % 0, Sodium 126 L, Potassium 3.7, Chloride 92 L, Carbon Dioxide 24.0, Anion Gap 10, BUN 7, Creatinine 0.54 L, Estim Creat Clear Calc 125.10, Est GFR (MDRD) Af Amer 195, Est GFR (MDRD) Non-Af 161, BUN/Creatinine Ratio 12.9, Glucose 95, Calcium 8.2 L D/C Instructions Discharge Diet: No restrictions and 8 Cup Fluid Restriction (After 2 days) Weight Bearing Status: Weight bearing as tolerated Call your doctor if you observe: Fever of 101 or Higher, Coldness, Increased Pain, Numbness or Tingling, Change in Color, Inability to urinate, Inability to have a bowel movement, Shortness of breath, Dizziness, Fainting spells, Swelling in the ankles, Chest pain, Prolonged hiccupping, Increased palpitations (irregular heartbeat) and Calf discomfort When: IN 2 WEEKS Meaningful Use Info Meaningful Use Diagnoses (Choose all that apply): None applicable Discharge Plan Admission Admit Date/Time: 01/01/24 16:33 Primary Reason for Your Visit: severe hyponatremia, SIADH mediated Attending Provider: Bull Gusman Primary Care Provider: Rick Gaffney Consulting Providers: Josee Guan; Judy Guan Discharge Orders/Prescriptions Prescriptions: Continued coenzyme Q10 [Co Q-10] 100 mg capsule 100 mg PO QDAY aspirin [Adult Aspirin Regimen] 81 mg tablet,delayed release (DR/EC) 81 mg PO QDAY omega-3 fatty acids [Fish Oil Concentrate] 1,000 mg capsule 1,000 mg PO QDAY multivitamin tablet 1 tab PO QDAY lisinopril 10 mg tablet See Rx Instructions .ROUTE .COMPLEX Qty: 90 4RF Dose Instruction: TAKE 1 TABLET DAILY Rx Instructions: TAKE 1 TABLET DAILY oseltamivir [Tamiflu] 75 mg capsule 75 mg PO Q12H 5 Days Qty: 10 0RF atorvastatin 10 mg tablet See Rx Instructions .ROUTE .COMPLEX Qty: 45 4RF Dose Instruction: TAKE ONE-HALF (1/2) TABLET AT BEDTIME Rx Instructions: TAKE ONE-HALF (1/2) TABLET AT BEDTIME atenolol 25 mg tablet 25 mg PO QDAY Qty: 90 3RF Referrals / Follow Up: Judy Guan DO [Med Staff - Consulting] - Within 1 Month (For isovolemic hyponatremia, SIADH) Rick Gaffney DO [Primary Care Provider] - Disposition Disposition (needs filled in before D/C Order can be placed): Home, Self Care Charges/Coding Visit Charges Inpatient E&M: 13267 Disch Hosp >30min
[2024-01-03 14:15] VITALS: BP 143/86; PULSE 65; RESP 16; TEMP 36.4; O2SAT 99
--- NOTE | 2024-01-03 14:27 | PHA.DC_ITS ---
Pharmacy [place] Med Reconciliation Pharmacy Service has performed discharge medication reconciliation for this patient. The patient's discharge medication list was reviewed for discrepancies and discrepancies were resolved. Medications at Discharge Home Medications aspirin 81 mg tablet,delayed release (Adult Aspirin Regimen) 81 mg PO QDAY heart 11/29/17 coenzyme Q10 100 mg capsule (Co Q-10) 100 mg PO QDAY vitamin 11/29/17 multivitamin 1 tab PO QDAY vitamin 11/29/17 omega-3 fatty acids 1,000 mg capsule (Fish Oil Concentrate) 1,000 mg PO QDAY heart [facility] 11/29/17 atorvastatin 10 mg tablet See Rx Instructions .Route .COMPLEX #45 tabs 01/07/23 lisinopril 10 mg tablet See Rx Instructions .Route .COMPLEX #90 tabs 07/11/23 oseltamivir 75 mg capsule (Tamiflu) 75 mg PO Q12H 5 days #10 caps 12/29/23 atenolol 25 mg tablet 25 mg PO QDAY #90 tabs 12/31/23
== END 2024-01-03 14:56 | disposition home or self-care (01) | DRG 645 ==
LOC: ED 12:35 → PCU 16:58
PROVIDERS: Family Medicine; Internal Medicine Nephrology; Admitting Provider Internal Medicine; Emergency Provider Emergency Medicine; PCP Family Medicine; Visit Provider Internal Medicine
DX: E22.2 Syndrome of inappropriate secretion of antidiuretic hormone (principal); E78.5 Hyperlipidemia, unspecified; J44.9 Chronic obstructive pulmonary disease, unspecified; I10 Essential (primary) hypertension; J10.1 Influenza due to other identified influenza virus with other respiratory manifestations; I25.10 Atherosclerotic heart disease of native coronary artery without angina pectoris; Z87.891 Personal history of nicotine dependence; Z79.82 Long term (current) use of aspirin; Z79.899 Other long term (current) drug therapy; Z95.1 Presence of aortocoronary bypass graft
CPT/HCPCS: 36415; 80048; 80053; 83735; 83930; 83935; 84100; 84295; 84300; 84443; 85025; 94640; 94668; 97802; 99283; J7030; A4216; J2405

== ENCOUNTER → 2024-01-10 | Outpatient (CLI) | payer OTHER, SELFPAY ==
[2024-01-10 11:08] LABS: Anion Gap 5 (5-15); BUN 10 mg/dL (7-18); BUN/Creat Ratio 11.4 RATIO (10-20); Calcium,Total 8.5 mg/dL (8.5-10.1); Chloride 93 mmol/L (98-107); Creatinine, Serum 0.88 mg/dL (0.70-1.30); EST Glomerular Filtration Rate 93 mL/min (>60); Est Glom Filt Rate - Afr Amer 112 mL/min (>60); Glucose 93 mg/dL (74-106); Potassium 3.7 mmol/L (3.5-5.1); Sodium Level 126 mmol/L (136-145)
== END | disposition home or self-care (01) ==
PROVIDERS: PCP Family Medicine; Visit Provider Internal Medicine Nephrology
DX: E22.2 Syndrome of inappropriate secretion of antidiuretic hormone (principal)
CPT/HCPCS: 36415; 80048

== ENCOUNTER → 2024-01-31 | Outpatient (CLI) | payer OTHER, SELFPAY ==
[2024-01-31 08:37] LABS: Anion Gap 6 (5-15); BUN 12 mg/dL (7-18); BUN/Creat Ratio 14.1 RATIO (10-20); Chloride 97 mmol/L (98-107); Creatinine, Serum 0.85 mg/dL (0.70-1.30); EST Glomerular Filtration Rate 96 mL/min (>60); Est Glom Filt Rate - Afr Amer 116 mL/min (>60); Glucose 92 mg/dL (74-106); Potassium 4.1 mmol/L (3.5-5.1); Sodium Level 130 mmol/L (136-145)
== END | disposition home or self-care (01) ==
LOC: LAB 07:19
PROVIDERS: PCP Internal Medicine; Referring Provider Internal Medicine Nephrology; Visit Provider Internal Medicine Nephrology
DX: E22.2 Syndrome of inappropriate secretion of antidiuretic hormone (principal)
CPT/HCPCS: 36415; 80048

== ENCOUNTER → 2024-04-17 | Outpatient (CLI) | payer OTHER, SELFPAY ==
[2024-04-17 08:43] LABS: AST(SGOT) 21 U/L (15-37); Alanine Aminotransfer ALT/SGPT 21 U/L (16-61); Albumin, Serum 3.7 g/dL (3.2-5.0); Alkaline Phosphatase 79 U/L (45-117); Bilirubin, Direct 0.26 mg/dL (0.00-0.30); Cholesterol 163 mg/dL (200); Globulin 3.6 g/dL (2.2-4.2); High Density Lipoprotein 65 mg/dL; Protein, Total 7.3 g/dL (6.4-8.2); Triglycerides 55 mg/dL; Very Low Density Lipoprotein 11 mg/dL (5-40)
== END | disposition home or self-care (01) ==
LOC: LAB 07:27
PROVIDERS: PCP Internal Medicine; Referring Provider Physician Assistant Medical; Visit Provider Physician Assistant Medical
DX: E78.00 Pure hypercholesterolemia, unspecified (principal)
CPT/HCPCS: 36415; 80061; 80076

== ENCOUNTER → 2024-08-28 | Outpatient (CLI) | payer OTHER, SELFPAY ==
--- NOTE | 2024-08-28 15:46 | CT_ITS ---
EXAM: CT ABDOMEN AND PELVIS WITH INTRAVENOUS CONTRAST CLINICAL INDICATION: Weight Loss - SIADH (syndrome of inappropriate ADH production) TECHNIQUE: Helically acquired images were obtained of the abdomen and pelvis with intravenous contrast. This CT exam was performed using one or more of the following dose reduction techniques: automated exposure control, adjustment of the mA and/or kV according to patient size, and/or use of iterative reconstruction technique. CONTRAST: Oral and amp; IV Readi-CAT and amp; 100mL Isovue-300 RADIATION DOSE: CTDIvol = 10.68 mGy, DLP = 609.79 mGy-cm COMPARISON: Enhanced chest CT November 03, 2019 FINDINGS: LOWER THORAX: . There is partially calcified right medial-posterior pleural plaque with increased calcification since 2019 but similar thickness, maximum thickness posteriorly roughly 1.4 cm AP, it was 1.2 cm. Also mild largely noncalcified pleural plaque with a few punctate calcifications in the left anterior and lateral lung base, also similar to prior exam. The similar size and configuration and increasing calcification argue against mesothelioma. Similar bullous change near the heart and near the left lateral pleura. Similar dense coronary artery calcifications and suspected stents. Overall normal heart size but the left atrial appendage is not fully included. Lung bases are clear. No significant pericardial effusion. ABDOMEN: LIVER: Unremarkable. Homogeneous. No focal mass. GALLBLADDER AND BILE DUCTS: Unremarkable. No calcified gallstones. No gallbladder distention or wall edema. No intra- or extrahepatic biliary ductal dilation. PANCREAS: Unremarkable. No focal cystic or solid mass. SPLEEN: Unremarkable. Normal size without focal cystic or solid mass. ADRENALS: Similar nodular contour of the left adrenal gland compared to 2020. KIDNEYS AND URETERS: The kidneys enhance symmetrically, symmetric size. Small simple cyst 1.8 cm in the upper pole left kidney, similar to 2020. Normal renal size and position. No hydronephrosis. STOMACH AND BOWEL: Oral contrast most distal small bowel loops, no obstruction. There is moderate stool in most of the proximal half of the colon, mild gas and minimal stool in the distal colon. Thick-walled incompletely distended or narrowed appearance of a segment of mid sigmoid. PELVIS: APPENDIX: No evidence of acute appendicitis. BLADDER: The bladder is almost collapsed, not well evaluated. REPRODUCTIVE: Fullness and ill-defined margins of the posterior right prostate margin, the prostate is 5.2 cm x 2.8 cm x 4.8 cm. ABDOMEN and PELVIS: INTRAPERITONEAL SPACE: Unremarkable. No ascites or other fluid collection. No free air. BONES/JOINTS: Bilateral L5 pars defects and mild grade 1 anterolisthesis of L5 with respect to S1 with marked L5-S1 disc space narrowing and slight vacuum disc. No significant spinal stenosis but at least moderate apparent L4-5 and L5-S1 neural foraminal stenosis. Some of the median sternotomy wires are included. SOFT TISSUES: Unremarkable. No discrete abdominal or pelvic wall hernia. VASCULATURE: Heavily calcified aortoiliac vessels and arterial branches. High-grade apparent stenosis at the origins of both common iliac arteries, distal right common iliac artery, and apparent severe stenosis of right external iliac and right common femoral arteries left common iliac artery bifurcation and left common femoral artery. There is mild opacification of both SFAs and high-grade stenosis at both SFA origins. Both deep femoral arteries are patent. Severely calcified origins and proximal renal arteries, greater on the right, apparent high-grade stenosis of at least the right renal artery origin. Calcifications and [id number]-[id number] stenosis at the origin of the celiac axis and mild narrowing of the origin of the SMA. Suspected high-grade stenosis at the origin of the JCARLOS. LYMPH NODES: Unremarkable. No enlarged lymph nodes. CT/Abdomen/Pelvis WITH Contrast IMPRESSION: Indeterminate findings. Including likely collapsed but possibly thick-walled segment of sigmoid colon. Asymmetric prostate with mild fullness of the right posterior gland with ill-defined margins. RECOMMENDATIONS for the indeterminate findings: 1. Colonoscopy screening if not recently performed. 2. Consider prostate screening. Advanced atherosclerotic disease with multifocal arterial origin stenoses including high-grade right renal artery stenosis, indeterminate left renal artery stenosis, high-grade celiac axis origin stenosis, high-grade common iliac artery origin stenoses. Advanced peripheral vascular disease including multifocal high-grade common femoral and superficial femoral artery stenoses. RECOMMENDATIONS: Consider Vascular/interventional consultation. Electronically Signed: Shanthi Lomas MD at 21:54 EST ,
[2024-08-28 16:12] LABS: CREATININE FINGERSTICK < 1.0 mg/dL (0.70-1.30); EGFR FINGERSTICK > 60.0000 mL/min (>60)
== END | disposition home or self-care (01) ==
LOC: CT 15:45
PROVIDERS: PCP Internal Medicine; Referring Provider Internal Medicine; Visit Provider Internal Medicine
DX: R63.4 Abnormal weight loss (principal); E22.2 Syndrome of inappropriate secretion of antidiuretic hormone
CPT/HCPCS: 74177; Q9967

== ENCOUNTER → 2024-11-06 | Outpatient (CLI) | payer OTHER, SELFPAY ==
--- NOTE | 2024-11-06 07:45 | ART_ITS ---
Reason For Study: PVD Procedure A bilateral lower extremity continuous wave Doppler with analog waveform analysis,segmental pressures,and ankle brachial indexes with exercise. Left Segmental Pressures Left brachial= 146mmHg. Left low thigh = 168mmHg. Left calf = 137mmHg. Left posterior tibial artery = 134mmHg. Left dorsalis pedis artery = 136mmHg. Left digit = 90 mmHg. The left dorsalis pedis waveforms are triphasic. The left posterior tibial artery waveforms are triphasic. Right Segmental Pressures Right brachial= 140mmHg. Right posterior tibial artery = 165mmHg. Right dorsalis pedis artery = 137mmHg. Right digit = 117 mmHg. The right dorsalis pedis waveforms are triphasic. The right posterior tibial artery waveforms are triphasic. Indices The right ankle brachial index by the dorsalis pedis is 0.94. The right ankle brachial index by the posterior tibial artery is 1.13. The right ankle brachial index by the posterior tibial artery post exercise is 1.03. The right digital-brachial index is 0.80. The left ankle brachial index by the dorsalis pedis is 0.93. The left ankle brachial index by the posterior tibial artery is 0.92. The left dorsalis pedis index post exercise is 0.91. The left digital-brachial index is 0.62. VL/Lower Ext Art Exam w/ Exercise Interpretation Summary Right GASPER 1.13, normal. TBI and Doppler/PVR waveforms of the right leg normal a t rest. Right lower extremity exhibits normal response to exercise. Left GASPER 0.93, mild arterial insufficiency. Doppler/PVR waveforms and segmental pressures reveal distal SFA/popliteal disease Left lower extremity with no significant change in response to exercise. Ordering Physician: Jodee Mitchell Referring Physician: Fany Coffey M.D. Performed By: Gen Andrade RVT and Student
== END | disposition home or self-care (01) ==
LOC: CVS 07:42
PROVIDERS: PCP Internal Medicine; Referring Provider Physician Assistant; Visit Provider Physician Assistant
DX: I73.9 Peripheral vascular disease, unspecified (principal)
CPT/HCPCS: 93924

== ENCOUNTER → 2024-12-11 | Outpatient (CLI) | payer OTHER, SELFPAY ==
[2024-12-11 16:37] LABS: ALB/GLOB Ratio 1.1 RATIO (0.9-2.4); AST(SGOT) 32 U/L (15-37); Alanine Aminotransfer ALT/SGPT 33 U/L (16-61); Albumin, Serum 3.9 g/dL (3.2-5.0); Alkaline Phosphatase 108 U/L (45-117); Anion Gap 9 (5-15); BUN 11 mg/dL (7-18); BUN/Creat Ratio 15.5 RATIO (10-20); Calcium,Total 8.7 mg/dL (8.5-10.1); Chloride 86 mmol/L (98-107); Creatinine, Serum 0.71 mg/dL (0.70-1.30); EST Glomerular Filtration Rate 118 mL/min (>60); Est Glom Filt Rate - Afr Amer 143 mL/min (>60); Globulin 3.4 g/dL (2.2-4.2); Glucose 94 mg/dL (74-106); Potassium 4.4 mmol/L (3.5-5.1); Protein, Total 7.3 g/dL (6.4-8.2); Sodium Level 120 mmol/L (136-145)
[2024-12-11 17:30] LABS: Anion Gap 8 (5-15); BUN 11 mg/dL (7-18); BUN/Creat Ratio 14.4 RATIO (10-20); Calcium,Total 8.8 mg/dL (8.5-10.1); Chloride 86 mmol/L (98-107); Creatinine, Serum 0.76 mg/dL (0.70-1.30); EST Glomerular Filtration Rate 109 mL/min (>60); Est Glom Filt Rate - Afr Amer 131 mL/min (>60); Glucose 131 mg/dL (74-106); Potassium 3.6 mmol/L (3.5-5.1); Sodium Level 121 mmol/L (136-145)
== END | disposition home or self-care (01) ==
LOC: LABSPEC 15:09 → LAB 16:46
PROVIDERS: PCP Internal Medicine; Referring Provider Internal Medicine; Visit Provider Internal Medicine
DX: E87.1 Hypo-osmolality and hyponatremia (principal)
CPT/HCPCS: 36415; 80048; 80053

== ENCOUNTER → 2024-12-14 | Outpatient (CLI) | payer OTHER, SELFPAY ==
[2024-12-14 14:37] LABS: Anion Gap 7 (5-15); BUN 18 mg/dL (7-18); BUN/Creat Ratio 22.2 RATIO (10-20); Calcium,Total 8.8 mg/dL (8.5-10.1); Chloride 95 mmol/L (98-107); Creatinine, Serum 0.81 mg/dL (0.70-1.30); EST Glomerular Filtration Rate 101 mL/min (>60); Est Glom Filt Rate - Afr Amer 123 mL/min (>60); Glucose 114 mg/dL (74-106); Potassium 3.7 mmol/L (3.5-5.1); Sodium Level 129 mmol/L (136-145)
== END | disposition home or self-care (01) ==
LOC: LAB 13:15
PROVIDERS: PCP Internal Medicine; Referring Provider Internal Medicine; Visit Provider Internal Medicine
DX: E87.1 Hypo-osmolality and hyponatremia (principal)
CPT/HCPCS: 36415; 80048

== ENCOUNTER → 2024-12-31 | Outpatient (CLI) | payer OTHER, SELFPAY ==
[2024-12-31 08:44] LABS: ALB/GLOB Ratio 1.4 RATIO (0.9-2.4); AST(SGOT) 23 U/L (<=37); Alanine Aminotransfer ALT/SGPT 18 U/L (<=46); Alkaline Phosphatase 78 U/L (40-129); Anion Gap 10 (5-15); BUN 16 mg/dL (4-19); BUN/Creat Ratio 18.8 RATIO (10-20); Calcium,Total 9.2 mg/dL (7.6-11.0); Chloride 96 mmol/L (98-108); Cholesterol 159 mg/dL (<=200); Creatinine, Serum 0.83 mg/dL (0.70-1.20); EST Glomerular Filtration Rate 97 (>60); Globulin 2.9 g/dL (2.2-4.2); Glucose 84 mg/dL (70-99); High Density Lipoprotein 63 mg/dL; Low Density Lipoprotein Calc. 85 mg/dL; Potassium 4.5 mmol/L (3.3-5.1); Protein, Total 6.9 g/dL (5.9-8.4); Sodium Level 132 mmol/L (133-145); Total Bilirubin 0.68 mg/dL (0.00-1.30); Triglycerides 55 mg/dL; Very Low Density Lipoprotein 11 mg/dL (5-40); cholesterol:hdl ratio screen 2.54
== END | disposition home or self-care (01) ==
PROVIDERS: PCP Internal Medicine; Referring Provider Internal Medicine; Visit Provider Internal Medicine
DX: R79.89 Other specified abnormal findings of blood chemistry (principal); I10 Essential (primary) hypertension
CPT/HCPCS: 36415; 80053; 80061

== ENCOUNTER → 2025-02-19 | Outpatient (CLI) | payer OTHER, SELFPAY ==
[2025-02-19 13:46] LABS: Anion Gap 10 (5-15); BUN 15 mg/dL (4-19); BUN/Creat Ratio 18.6 RATIO (10-20); Calcium,Total 9.1 mg/dL (7.6-11.0); Carbon Dioxide 24.8 mmol/L (21.0-32.0); Chloride 93 mmol/L (98-108); Creatinine, Serum 0.78 mg/dL (0.70-1.20); EST Glomerular Filtration Rate 99 (>60); Glucose 139 mg/dL (70-99); Potassium 4.2 mmol/L (3.3-5.1); Sodium Level 128 mmol/L (133-145)
== END | disposition home or self-care (01) ==
LOC: LAB 12:59
PROVIDERS: PCP Internal Medicine; Referring Provider Internal Medicine; Visit Provider Internal Medicine
DX: E87.1 Hypo-osmolality and hyponatremia (principal)
CPT/HCPCS: 36415; 80048

== ENCOUNTER → 2025-03-17 | Outpatient (CLI) | payer OTHER, SELFPAY ==
--- NOTE | 2025-03-17 10:30 | STRESSREP_ITS ---
Stress Test Report Exercise myocardial perfusion stress test. 64-year-old man with a history of chest pain Stress protocol: Resting EKG demonstrates normal sinus rhythm with a rate of 63 bpm resting blood pressure is 142/80 mmHg. The patient exercised according to the regular Luis protocol for a total duration of 8 minutes attaining a maximum heart rate of 141 bpm which was 90% of maximum predicted heart rate; the maximum workload was 10.1 metabolic equivalents. At rest there were no ST or T wave changes noted to suggest ischemia and at peak exercise upsloping ST changes only were noted which did not meet the criteria for ischemia. No clinical angina was noted the test was terminated due to the target heart rate being achieved/fatigue. The peak b lood pressure was 182/92 mmHg. Rate-pressure product was 23,600. Myocardial perfusion protocol. 10.8 mCi of technetium 99m sestamibi was injected at rest. The patient exercised according to regular Luis protocol for total duration of 8 minutes and at peak exercise 33.4 mCi of technetium 99m sestamibi was injected stress images were obtained stress and rest images were reconstructed in comparing the short axis vertical long and horizontal long axis. Gated images were also obtained. Perfusion SPECT analysis: Review of the stress images demonstrate normal uptake of tracer noted in all areas of the myocardium. The resting images similarly demonstrate normal uptake of tracer noted in all areas of the myocardium. No areas of reversibility are noted to suggest ischemia no previous infarct was noted. Gated SPECT analysis: The gated ejection fraction is 63%. Conclusion: Normal exercise myocardial perfusion stress test at a high workload Preserved ejection fraction.
== END | disposition home or self-care (01) ==
PROVIDERS: PCP Internal Medicine; Referring Provider Physician Assistant Medical; Visit Provider Physician Assistant Medical
DX: I25.10 Atherosclerotic heart disease of native coronary artery without angina pectoris (principal); E78.1 Pure hyperglyceridemia; E78.5 Hyperlipidemia, unspecified; Z95.1 Presence of aortocoronary bypass graft
CPT/HCPCS: 78452; 93017; A9500; A4216

== ENCOUNTER → 2025-03-25 | Outpatient (CLI) | payer OTHER, SELFPAY ==
--- NOTE | 2025-03-25 07:41 | CT_ITS ---
EXAM: CT Chest, Lung Cancer Screening Without Intravenous Contrast CLINICAL INDICATION: LOW DOSE CT LUNG SCREENING; CHORNIC OBSTRUCTIVE PULMONARY DISEASE TECHNIQUE: Axial computed tomography images of the chest without intravenous contrast using low dose (LDCT) lung cancer screening protocol. This CT exam was performed using one or more of the following dose reduction techniques: automated exposure control, adjustment of the mA and/or kV according to patient size, and/or use of iterative reconstruction technique. COMPARISON: CT chest 11/03/2019 FINDINGS: LUNGS AND PLEURAL SPACES: Lung emphysema/COPD with bilateral apical scarring. Stable pleural thickening of the right lung base and anterior lateral left lung. Stable 4 mm nodule of the left upper lobe. Previously noted nodular density in the posterior left lower lobe resolved. Dependent atelectasis on the right. No significant effusion. No pneumothorax. No new suspicious pulmonary nodules. HEART: Unremarkable. No cardiomegaly. No significant pericardial effusion. No significant coronary artery calcifications. BONES/JOINTS: Unremarkable. No acute fracture. SOFT TISSUES: Unremarkable. VASCULATURE: Unremarkable. No thoracic aortic aneurysm. LYMPH NODES: Unremarkable. No enlarged lymph nodes. CT/Low Dose CT Lung Screening IMPRESSION: 1. No new suspicious pulmonary nodules. 2. LUNG-RADS 2: Benign. Continue low-dose CT screening of the chest in 12 mon ths is recommended. Reading Location: [id number]
== END | disposition home or self-care (01) ==
PROVIDERS: PCP Internal Medicine; Referring Provider Internal Medicine; Visit Provider Internal Medicine
DX: Z12.2 Encounter for screening for malignant neoplasm of respiratory organs (principal); J44.9 Chronic obstructive pulmonary disease, unspecified
CPT/HCPCS: 71271

== ENCOUNTER 2025-05-09 10:55 | Outpatient (CLI) | payer OTHER, SELFPAY ==
--- OUTSIDE RECORDS SUMMARY | 2025-05-09 11:01 | XMS RPT_ITS | CCD ---
Author Organization [facility] Care Team Providers Care Mri Technician Name Role Phone Aracely ROWLEY, Danitza Diego Unavailable Unavailable Valerie Medeiros Unavailable Unavailable Roof VANIA, Kurt Menon Unavailable BENJAMÍN Boyer, Karla Montiel Unavailable [phone] Valerie Medeiros Y Unavailable Unavailable Tyler Johnston Unavailable Unavailable Tyler Johnston Unavailable Unavailable Dr. Rick Gaffney Primary Care Provider [phone] Dr. Rick Gaffney Referring Provider BIANCA Araujo Attending Provider Dr. Rick Gaffney Primary Care Provider [phone] Dr. Rick Gaffney Referring Provider Dr. Jacques Blair Attending Provider [phone] Dr. Rick Gaffney Primary Care Provider [phone] Dr. Rick Gaffney Referring Provider [phone] BIANCA Bowman Attending Provider Dr. Rick Gaffney Primary Care Provider [phone] Dr. Rick Gaffney Referring Provider [phone] Leon FIRST OFFICER, VANIA-Nuha Menon Attending Provider Dr. Dereck Delvalle Emergency Provider [phone] Josee Guan Attending Provider Dr. Josee Guan Admit Provider Dr. Josee Guan Other Provider Dr. Bull Gusman Attending Provider Naseem, Dr. Gottlieb Other Provider Dr. Judy Guan Other Provider Dr. Rick Gaffney Primary Care Provider Dr. Rick Gaffney Referring Provider Roof FIRST OFFICER, FIRST OFFICER-C Kurt Menon Attending Provider Dr. Dereck Delvalle Emergency Provider Dr. Josee Guan Attending Provider Roge, Dr. Tripp Admit Provider Dr. Josee Guan Other Provider Naseem, Dr. Gottlieb Attending Provider Naseem, Dr. Gottlieb Other Provider Roge, Dr. Kim Other Provider Unavailable Primary Care Provider Unavailabl e Ramon Samuel MD Unavailable Jeferson Coffey MD Primary Care Provider [phone] Erlinda RODRIGUEZ, Dr. Soares Referring Provider Jodee Underwood Attending Provider Jodee Underwood Referring Provider [phone] Jeferson Coffey MD Primary Care Provider Dr. Damon Melendrez MD Attending Provider Dr. Jeferson Coffey MD Attending Provider Dr. Jeferson Coffey MD Primary Care Provider Dr. Jeferson Coffey MD Referring Provider [phone] Dayanara RODRIGUEZ, Dr. Neal Attending Provider Karla Bowman Attending Provider Karla Bowman Referring Provider Karla Bowman Other Provider [phone] LIZZIE, NARIMAN A Referring Unavailable BONEZZI, JEFERSON M Primary Care Unavailable LIZZIE, NARIMAN A Referring Unavailable BONEZZI, JEFERSON M Primary Care Unavailable LIZZIE, NARIMAN A Referring Unavailable BONEZZI, JEFERSON M Primary Care Unavailable LIZZIE, NARIMAN A Referring Unavailable BONEZZI, JEFERSON M Primary Care Unavailable SYDNEY, RUBIO Referring Unavailable BONEZZI, JEFERSON M Primary Care Unavailable HAIR ADAMES Attending Unavailable CIHAIR THOMPSON Referring Unavailable BONEZZI, JEFERSON M Primary Care Unavailable SYDNEY, RUBIO Referring Unavailable BONEZZI, JEFERSON M Primary Care Unavailable SYDNEY, RUBIO Referring Unavailable BONEZZI, JEFERSON M Primary Care Unavailable CIHAIR THOMPSON M Attending Unavailable BONEZZI, JEFERSON M Primary Care Unavailable SYDNEY, RUBIO Referring Unavailable BONEZZI, JEFERSON M Primary Care Unavailable SYDNEY, RUBIO Referring Unavailable BONEZZI, JEFERSON M Primary Care Unavailable SYDNEY, RUBIO Attending Unavailable SYDNEY, RUBIO Referring Unavailable BONEZZI, JEFERSON M Primary Care Unavailable SYDNEY, RUBIO Referring Unavailable BONEZZI, JEFERSON M Primary Care Unavailable Bonezzi, Jeferson Attending Unavailable Bonezzi, Jeferson Primary Care Unavailable Bonezzi, Jeferson Referring Unavailable Bonezzi, Jeferson Attending Unavailable Bonezzi, Jeferson Primary Care Unavailable Bonezzi, Jeferson Referring Unavailable Karla Bowman Attending Unavail able Bonezzi, Jeferson Primary Care Unavailable Karla oBwman Referring Unavail able Bonezzi, Jeferson Referring Unavailable MitchellGuanakoJodee Attending Unavailable Bonezzi, Jeferson Primary Care Unavailable Ángel Nichole Attending Unavailable Bonezzi, Jeferson Primary Care Unavailable MitchellGuanako gaytanison Referring Unavailable Damon Melendrez Attending Unavailable Karla Bowman Consulting Unavail able Ángel Nichole Attending Unavailable Karla Bowman Referring Unavail able Bonezzi, Jeferson Primary Care Unavailable Bonezzi, Jeferson Primary Care Unavailable Karla Bowman Attending Unavail able Bonezzi, Jeferson Referring Unavailable Bonezzi, Jeferson Primary Care Unavailable Bonezzi, Jeferson Referring Unavailable Kaylee Jolly NP Attending Unavailable Bonezzi, Jeferson Attending Unavailable Bonezzi, Jeferson Primary Care Unavailable Bonezzi, Jeferson Referring Unavailable Bonezzi, Jeferson Primary Care Unavailable Karla Bowman Referring Unavail able Karla Bowman Attending Unavail able Bonezzi, Jeferson Attending Unavailable Bonezzi, Jeferson Primary Care Unavailable Bonezzi, Jeferson Referring Unavailable Bonezzi, Jeferson Attending Unavailable Bonezzi, Jeferson Primary Care Unavailable Bonezzi, Jeferson Referring Unavailable Bonezzi, Jeferson Attending Unavailable Bonezzi, Jeferson Primary Care Unavailable Bonezzi, Jeferson Referring Unavailable Bonezzi, Jeferson Primary Care Unavailable Mitchell, Jodee Referring Unavailable Mitchell, Jodee Attending Unavailable Bonezzi, Jeferson Primary Care Unavailable Judy Guan Attending Unavailable Allergies Allergy Classification Reported Allergen(s) Allergy Type Date of Onset Reaction(s) Facility (14 sources) Ibuprofen Drug Allergy 10-02-2021 [facility] (1 source) Ibuprofen Drug Allergy 03-02-2025 [facility] Repository Medications Current Medications Medication Drug Class(es) Dates Sig (Normalized) Sig (Original) [id number] 200 actuat albuterol 0.09 mg/actuat metered dose inhaler (3 sources) beta2-Adrenergic Agonist Start: 10-08-2024 Albuterol Sulfate 90 mcg/actuation HFA aerosol inhaler Active 2 NMA INHALATION EVERY 6 HOURS as needed October 08, 2024 1:00am amLODIPine 2.5 mg oral tablet (2 sources) Dihydropyridine Calcium Channel Mackenzie Start: 03-02-2025 take 1 tablet by mouth once daily Amlodipine (Norvasc) 2.5 mg tablet Active 2.5 mg PO daily March 02, 2025 12:00am aspirin 81 mg delayed release oral tablet (20 sources) Nonsteroidal Anti-inflammatory Drug Start: 04-24-2011 take 1 tablet by mouth once daily Aspirin (Adult Aspirin Regimen) 81 mg tablet,delayed release (DR/EC) Active 81 mg PO daily November 29, 2017 1:00am Start: 04-24-2011 take 1 tablet by luis th once daily ASPIRIN 81 MG TABS One tablet by mouth daily ASPIRIN [id number] Trish Angel Start: 04-24-2011 take 1 tablet by luis th once daily ASPIRIN 81 MG TABS One tablet by mouth daily ASPIRIN [id number] Trish Angel atorvastatin 10 mg oral tablet (20 sources) HMG-CoA Reductase Inhibitor Start: 03-02-2025 take 1 tablet by mouth at bedtime Atorvastatin 10 mg tablet Active 10 mg PO AT BEDTIME March 02, 2025 8:21am Start: 01-07-2023 End: 03-02-2025 Atorvastatin 10 mg tablet Discontinued 0 .ROUTE .COMPLEX March 30, 2024 9:51am March 02, 2025 8:23am TAKE ONE-HALF (1/2) TABLET AT BEDTIME Start: 12-12-2020 End: 01-07-2023 take 5 mg by mouth at bedtime Atorvastatin 10 mg table t Discontinued 5 mg PO BEDTIME February 02, 2022 9:33am January 07, 2023 8:53am Start: 12-12-2020 End: 01-07-2023 take 5 mg by mouth at bedtime Atorvastatin Discontinue d 5 MG PO BEDTIME February 02, 2022 9:33am January 07, 2023 8:53am Start: 02-28-2012 End: 12-12-2020 take 1 tablet by mouth at bedtime Atorvastatin 10 mg tablet Discontinued 10 mg PO BEDTIME November 11, 2019 9:43am December 12, 2020 11:35am Start: 02-28-2012 take 0.5 tablet by m taylor at bedtime LIPITOR 20 MG TABS 1/2 tablet by mouth at bedtime. ATORVASTATIN CALCIUM [id number] Jacques Blair MD Start: 04-24-2011 take 1 tablet by luis th at bedtime LIPITOR 20 MG TABS One tablet by mouth at bedtime. ATORVASTATIN CALCIUM [id number] Trish Angel End: 02-19-2024 take 10 mg by mouth once daily atorvastatin (LIPITOR) 20 mg tablet Take 10 mg by mouth once daily. 0 02/19/2024 Discontinued ubidecarenone 100 mg oral ca psule (20 sources) Start: 11-29-2017 Coenzyme Q10 ( Co Q-10) 100 mg capsule Active 100 mg PO daily November 29, 2017 1:00am Start: 09-29-2012 take 1 tablet by luis th once daily CO Q-10 100 MG CAPS One tablet by mouth daily COENZYME Q10 [id number] Jacques Blair MD Start: 09-29-2012 take 1 tablet by luis th once daily CO Q-10 100 MG CAPS One tablet by mouth daily COENZYME Q10 [id number] Jacques Blair MD Start: 09-29-2012 take 1 tablet by luis th once daily CO Q-10 100 MG CAPS One tablet by mouth daily COENZYME Q10 [id number] Jacques Blair MD coenzyme Q10 (H2Q COQ10) 200 mg/gram powd (20 sources) coenzyme Q10 (H2 Q COQ10) 200 mg/gram powd Take by mouth once daily. Active coenzyme Q10 (H2 Q COQ10) 200 mg/gram powd Take by mouth once daily. 0 Active iv contrast (will be provided with radiology test) (1 source) Start: 02-20-2024 End: 02-21-2024 iv contrast (will be provided with radiology test) CT Chest W -Inject, intravenously, once for 1 dose.No IV access, insert saline lock prior to the beginning of sedation, infusion, injection of imaging exam. Discontinue saline lock post exam. If Pt. has a central line or IVAD, may access for administration according to line specific nursing protocol. Once exam is complete flush line and de-access according to line specific nursing protocol in the CT contrast administration guidelines link. 1 Each 0 02/20/2024 02/21/2024 Active lisinopril 10 mg oral tablet (20 sources) Angiotensin Converting Enzyme Inhibitor Start: 03-02-2025 take 1 tablet by mouth twice daily Lisinopril 10 mg tablet Active 10 mg PO TWICE A DAY March 02, 2025 8:21am Start: 07-11-2023 End: 03-02-2025 Lisinopril 10 mg tablet Disc ontinued 0 .ROUTE .COMPLEX September 15, 2024 12:11pm March 02, 2025 8:23am TAKE 1 TABLET DAILY Start: 01-15-2022 End: 07-11-2023 Lisinopril 5 mg tablet Disco ntinued 0 .ROUTE .COMPLEX January 07, 2023 8:52am July 11, 2023 4:05pm TAKE 1 TABLET DAILY Start: 04-24-2011 End: 09-16-2015 take 1 tablet by mouth once daily LISINOPRIL 5 MG TABS One tablet by mouth daily LISINOPRIL [id number] Jacques Blair MD take 2 tablets by mo uth once daily lisinopril (ZESTRIL) 10 mg tablet Take 20 mg by mouth once daily. Active Multivitamin capsule (20 sources) take 1 capsule by mo uth once daily Multivitamin capsule Take 1 capsule by mouth once daily. Active take 1 capsule by mouth once lulu ly Multivitamin capsule Take 1 capsule by mouth once daily. 0 Active Multivitamin preparation (11 sources) Start: 11-29-2017 take 1 tablet by mouth once daily Multivitamin Active 1 TABLET PO daily November 29, 2017 12:50pm Start: 11-29-2017 take 1 tablet by luis th once daily Multivitamin Active 1 TABLET PO daily November 29, 2017 12:00am Start: 11-29-2017 take 1 tablet by luis th once daily Multivitamin Active 1 TABLET PO daily November 29, 2017 1:00am Multivitamin tablet (3 sources) Start: 11-29-2017 Multivitamin t ablet Active 1 {tbl} PO daily November 29, 2017 1:00am [place]-3 Fatty Acids (Fish Oil Concentrate) 1,000 mg capsule (14 sources) Start: 11-29-2017 take 1 capsule by mouth once daily [place]-3 Fatty Acids (Fish Oil Concentrate) 1,000 mg capsule Active 1000 MG PO daily November 29, 2017 12:49pm Start: 11-29-2017 take 1 capsule by mo uth once daily [place]-3 Fatty Acids (Fish Oil Concentrate) 1,000 mg capsule Active 1000 mg PO daily November 29, 2017 1:00am Start: 11-29-2017 take 1 capsule by mo uth once daily [place]-3 Fatty Acids (Fish Oil Concentrate) 1,000 mg capsule Active 1000 MG PO daily November 29, 2017 12:00am Start: 11-29-2017 take 1 capsule by mo uth once daily [place]-3 Fatty Acids (Fish Oil Concentrate) 1,000 mg capsule Active 1000 MG PO daily November 29, 2017 1:00am [place]-3 Fatty Acids-Vitamin E (FISH OIL) 1,000 mg cap (20 sources) take 1 capsule by mo uth once daily [place]-3 Fatty Acids-Vitamin E (FISH OIL) 1,000 mg cap Take 1 capsule by mouth once daily. Active take 1 capsule by mouth once lulu ly [place]-3 Fatty Acids-Vitamin E (FISH OIL) 1,000 mg cap Take 1 capsule by mouth once daily. 0 Active sodium bicarbonate 325 mg oral tablet (3 sources) Start: 04-24-2024 take 2 tablets by mouth three times daily as needed Sodium Bicarbonate 325 mg tablet Active 650 mg PO THREE TIMES A DAY as needed April 24, 2024 12:00am sodium chloride 1000 mg oral tablet (16 sources) Start: 03-20-2024 End: 06-18-2024 take 1 tablet by mouth three times daily sodium chloride soluble tablet 1 g Indications: Hyponatremia Take 2 tablets by mouth three times a day. 540 tablet 3 03/20/2024 06/18/2024 Active Start: 02-20-2024 End: 05-20-2024 take 1 tablet by mouth twice daily sodium chloride 1,000 mg TbSO Indications: Hyponatremia Take 1 tablet by mouth two times a day. 180 tablet 3 02/20/2024 03/20/2024 Discontinued sodium chloride soluble tablet 1 g Take 2 g by mouth three times a day. Active Completed/Discontinued Medications Medication Drug Class(es) Dates Sig (Normalized) Sig (Original) atenolol 25 mg oral tablet (20 sources) beta-Adrenergic Mackenzie Start: 04-24-2011 End: 12-30-2024 take 1 tablet by mouth once daily Atenolol 25 mg tablet Discontinued 25 mg PO daily December 28, 2024 11:17am December 30, 2024 10:43am Start: 04-24-2011 take 1 tablet by luis twice daily ATENOLOL 25 MG TABS One tablet by mouth twice daily ATENOLOL [id number] Jacques Blair MD azithromycin 250 mg oral tablet (20 sources) Macrolide Antimicrobial Start: 07-10-2021 End: 10-02-2021 take 2-5 tablets by mouth once daily Azithromycin 250 mg tablet Discontinued 0 PO .COMPLEX 6 July 10, 2021 12:00am October 02, 2021 4:17pm take 500 mg today (day 1), then 250 mg for 4 days (days 2-5) PO Start: 05-17-2016 End: 05-22-2016 take 2 tablets by mouth once, then take 1 tablet by mouth once daily, then take 2-5 tablets by mouth AZITHROMYCIN 250 MG TABS 2 PO on day 1 then 1 PO daily on days 2-5 AZITHROMYCIN [id number] Rick Gaffney DO ciprofloxacin 250 mg oral tablet (7 sources) Quinolone Antimicrobial Start: 04-27-2016 End: 05-04-2016 take 1 tablet by mouth twice daily CIPROFLOXACIN HCL 250 MG TABS One tablet by mouth twice daily CIPROFLOXACIN HCL [id number] Rick Gaffney DO fish oil (7 sources) Start: 04-24-2011 take 1 tablet by mouth once daily FISH OIL CAPS One tablet by mouth daily OMEGA-3 FATTY ACIDS CAPS [id number] Trish Angel Start: 04-24-2011 take 1 tablet by luis th once daily FISH OIL CAPS One tablet by mouth daily OMEGA-3 FATTY ACIDS CAPS [id number] Trish Angel meloxicam 15 mg oral tablet (20 sources) Nonsteroidal Anti-inflammatory Drug Start: 09-16-2019 End: 03-17-2020 Meloxicam (Mobic) 15 mg tablet Discontinued 15 mg PO NEEDED as needed for Pain/Inflammation September 16, 2019 1:00am March 17, 2020 8:29am Start: 01-13-2016 End: 05-17-2017 MELOXICAM 15 MG TABS As need ed MELOXICAM [id number] Jacques Blair MD Start: 09-16-2015 End: 01-13-2016 take 1 tablet by mouth once daily as needed MELOXICAM 7.5 MG TABS 1 tablet by mouth daily as needed MELOXICAM [id number] Jacques Blair MD MULTIPLE VITAMIN (3 sources) Start: 04-24-2011 take 1 tablet by mouth once daily MULTIVITAMINS TABS One tablet by mouth daily MULTIPLE VITAMIN [id number] Trish Angel MULTIPLE VITAMIN (4 sources) Start: 04-24-2011 take 1 tablet by mouth once daily MULTIVITAMINS TABS One tablet by mouth daily MULTIPLE VITAMIN [id number] Trish Angel Start: 04-24-2011 take 1 tablet by luis th once daily MULTIVITAMINS TABS One tablet by mouth daily MULTIPLE VITAMIN [id number] Trish Angel nitroglycerin 0.4 mg sublingual tablet (14 sources) Nitrate Vasodilator Start: 04-24-2011 End: 05-17-2016 NITROSTAT 0.4 MG SUBL 1 tablet under tongue every 5 min up to 3 X NITROGLYCERIN [id number] Jacques Blair MD oseltamivir 75 mg oral capsule (7 sources) Neuraminidase Inhibitor Start: 12-29-2023 End: 01-04-2024 take 1 capsule by mouth every twelve hours Oseltamivir (Tamiflu) 75 mg capsule Discontinued 75 mg PO Q12H 10 5 December 29, 2023 1:00am January 02, 2024 1:00am January 04, 2024 1:16am Problems Active Problems Problem Classification Problem Date Documented Date Episodic/Chronic Chronic obstructive pulmonary disease and bronchiectasis (20 sources) Chronic obstructive lung disease; Translations: [Chronic obstructive pulmonary disease, unspecified] Onset: 4 11-29-2017 Chronic Complication of device; implant or graft (20 sources) Arteriosclerosis of coronary artery bypass graft; Translations: [Atherosclerosis of coronary artery bypass graft(s) without angina pectoris] Onset: 1 01-13-2016 Chronic Coronary atherosclerosis and other heart disease (20 sources) Atherosclerotic heart disease of [place] coronary artery without angina pectoris; Translations: [Angina pectoris] Onset: 1 Resolved: 5 05-14-2017 Chronic Comment on above: 01/11/2010 KNOTT to LA D, EDYTA insitu to the RCA and SVG to , SVG to [facility] per Dr. Hernandez Coronary atherosclerosis and other heart disease (14 sources) Presence of aortocoronary bypass graft; Translations: [Aortocoronary bypass status] Onset: 0 04-24-2011 Episodic Disorders of lipid metabolism (20 sources) Hyperlipidemia; Translations: [Hyperlipidemia, unspecified] Onset: 1 04-24-2011 Chronic Essential hypertension (20 sources) Hypertensive disorder; Translations: [Essential hypertension] Onset: 1 04-24-2011 Chronic Immunizations and screening for infectious disease (14 sources) Contact with and (suspected) exposure to other viral communicable diseases; Translations: [Contact with or suspected exposure to other viral communicable disease] 07-10-2021 Episodic Malaise and fatigue (11 sources) Asthenia; Translations: [Weakness] 01-01-2024 Episodic Osteoarthritis (20 sources) Degenerative joint disease of hand; Translations: [Degenerative joint disease of thumb] Onset: 6 01-13-2016 Chronic Other endocrine disorders (20 sources) Syndrome of inappropriate vasopressin secretion; Translations: [Syndrome of inappropriate secretion of antidiuretic hormone] Onset: 4 02-19-2024 Chronic Other endocrine disorders (1 source) Syndrome of inappropriate secretion of antidiuretic hormone; Translations: [SIADH (syndrome of inappropriate ADH production) (HCC)] Onset: 4 Chronic Other lower respiratory disease (1 source) Interstitial lung disease; Translations: [Interstitial pulmonary disease, unspecified] 03-30-2024 Chronic Other non-traumatic joint disorders (14 sources) Arthritis of acromioclavicular joint; Translations: [Unspecified osteoarthritis, unspecified site] Onset: 2 Resolved: 5 09-16-2015 Chronic Other nutritional; endocrine; and metabolic disorders (2 sources) Personal history of other endocrine, nutritional and metabolic disease; Translations: [Personal history of other endocrine, metabolic, and immunity disorders] 01-01-2024 Episodic Other upper respiratory disease (4 sources) Acute bronchospasm; Translations: [Acute bronchospasm] 01-01-2024 Episodic Peripheral and visceral atherosclerosis (7 sources) Peripheral vascular disease, unspecified; Translations: [Peripheral arterial disease] Onset: 5 10-08-2024 Chronic Residual codes; unclassified (2 sources) H/O: asbestos exposure; Translations: [Contact with and (suspected) exposure to asbestos] 03-02-2025 Episodic Screening and history of mental health and substance abuse codes (1 source) Ex-smoker; Translations: [Personal history of nicotine dependence] 03-30-2024 Episodic Unclassified (4 sources) Long-term drug therapy; Translations: [Other fdc (current) drug therapy] Onset: 1 04-24-2011 Unclassified (4 sources) 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; Translations: [Presence of aortocoronary bypass graft] Onset: 1 05-14-2017 Past or Other Problems Problem Classification Problem Date Documented Date Episodic/Chronic Allergic reactions (7 sources) Dermatitis; Translations: [Dermatitis, unspecified] Onset: 04-19-2016 Resolved: 04-24-2016 04-19-2016 Episodic Fluid and electrolyte disorders (20 sources) Hyponatremia with decreased serum osmolality; Translations: [Hypo-osmolality and hyponatremia] Onset: 02-19-2024 11-02-2019 Episodic Influenza (20 sources) Influenza; Translations: [Influenza due to unidentified influenza virus with other respiratory manifestations] Onset: 12-29-2023 01-01-2024 Episodic Nonspecific chest pain (14 sources) Precordial pain; Translations: [Precordial pain] Onset: 04-24-2011 Resolved: 09-16-2015 09-16-2015 Episodic Other aftercare (3 sources) Other fdc (current) drug therapy; Translations: [Other fdc (current) drug therapy] Onset: 04-24-2011 04-24-2011 Episodic Other circulatory disease (18 sources) Electrocardiogram abnormal; Translations: [Carotid bruit] Onset: 04-24-2011 Resolved: 09-16-2015 04-24-2011 Episodic Other circulatory disease (20 sources) Carotid bruit; Translations: [Other specified symptoms and signs involving the circulatory and respiratory systems] Onset: 04-24-2011 04-24-2011 Episodic Other lower respiratory disease (20 sources) Dyspnea; Translations: [Shortness of breath] Onset: 04-24-2011 Resolved: 09-16-2015 04-24-2011 Episodic Other non-traumatic joint disorders (14 sources) Pain in unspecified shoulder; Translations: [Pain in unspecified shoulder] Onset: 12-24-2011 Resolved: 09-16-2015 12-24-2011 Episodic Other nutritional; endocrine; and metabolic disorders (20 sources) H/O: endocrine disorder; Translations: [Personal history of other endocrine, nutritional and metabolic disease] Onset: 01-08-2024 03-17-2020 Episodic Other nutritional; endocrine; and metabolic disorders (1 source) Abnormal weight loss; Translations: [Abnormal weight loss] Onset: 09-17-2024 Episodic Other screening for suspected conditions (not mental disorders or infectious disease) (20 sources) Patient encounter status; Translations: [Encounter for screening for malignant neoplasm of colon] Onset: 03-10-2015 03-10-2015 Episodic Other upper respiratory disease (20 sources) Acute bronchospasm; Translations: [Acute bronchospasm] Onset: 03-30-2024 01-01-2024 Episodic Other upper respiratory infections (7 sources) Upper respiratory infection; Translations: [Acute upper respiratory infection, unspecified] Onset: 05-17-2016 Resolved: 05-23-2016 05-17-2016 Episodic Pleurisy; pneumothorax; pulmonary collapse (12 sources) Thickening of pleura; Translations: [Pleural plaque without asbestos] Onset: 04-07-2024 02-20-2024 Episodic Residual codes; unclassified (20 sources) History of cardiac catheterization; Translations: [Other specified postprocedural states] Onset: 03-30-2024 10-02-2021 Episodic Comment on above: 01/11/[address] Domo roper @ [facility] Unclassified (14 sources) Family history of ischemic heart disease; Translations: [Family history of ischemic heart disease and other diseases of the circulatory system] Onset: 04-24-2011 Resolved: 09-16-2015 09-16-2015 Episodic Unclassified (7 sources) Preoperative cardiovascular examination ; Translations: [Encounter for preprocedural cardiovascular examination] Onset: 11-16-2016 Resolved: 05-14-2017 11-16-2016 Urinary tract infections (7 sources) Bacterial urethritis; Translations: [Other urethritis] Onset: 04-19-2016 Resolved: 04-26-2016 04-19-2016 Episodic Results Test Name Value Interpretation Reference Range Facility [facility] 03-30-2025 [facility] Telephone ([facility]) JORGE A RIVERA ([id number]) 1960 M Date Time Provider Department 03/30/25 RAMON SAMUEL [facility] During your visit today, we recorded the following information about you: Maida Phillips MA 03/30/2025 10:10 AM Signed Fax received from [facility] for [facility] Dr. Bonezzi CT Chest Lung [facility]. Placed in Dr. Samuel's office to be viewed. Allergies As of Date: 03/30/2025 (No Known Allergies) Date Reviewed: 11/18/2024 Reviewed by: Marj Dvoe MA - Fully Assessed Reason for Visit: Results [95] Prescriptions as of 03/30/2025 - sodium chloride soluble tablet 1 g Take 2 g by mouth three times a day. - lisinopril (ZESTRIL) 10 mg tablet Take 20 mg by mouth once daily. - atorvastatin (LIPITOR) 10 mg tablet Take 10 mg by mouth once daily. - atenolol (TENORMIN) 25 mg tablet Take 25 mg by mouth once daily. - coenzyme Q10 (H2Q COQ10) 200 mg/gram powd Take by mouth once daily. - aspirin, enteric coated (ASPIRIN, ENTERIC COATED) 81 mg EC tablet Take 81 mg by mouth once daily. - Minburn-3 Fatty Acids-Vitamin E (FISH OIL) 1,000 mg cap Take 1 capsule by mouth once daily. - Multivitamin capsule Take 1 capsule by mouth once daily. Problem List As Of Date 03/30/2025 Noted Resolved Screening for colon cancer [Z12.11] 03/10/2015 SIADH (syndrome of inappropriate ADH production*02/19/2024 Hyponatremia [E87.1] 02/19/2024 Essential hypertension [I10] 02/19/2024 Acute bronchospasm [J98.01] 03/30/2024 Carotid bruit [R09.89] 04/24/2011 Chronic obstructive pulmonary disease (HCC) [J4*03/30/2024 Atherosclerosis of coronary artery bypass graft*04/24/2011 History of cardiac catheterization [Z98.890] 03/30/2024 History of coronary artery bypass surgery [Z95.*03/30/2024 History of endocrine disorder [Z86.39] 01/08/2024 Hyperlipidemia [E78.5] 04/24/2011 Influenza [J11.1] 12/29/2023 Osteoarthritis of hand [M19.049] 01/13/2016 Encounter Status:Closed by MAIDA PHILLIPS on 03/30/25 Normal [facility] Low Dose CT Lung Screeningon 03-25-[address] Lung Screening [facility] Services [address] [place] [address] Lung Screening MR#: [id number] Acct: [id number] Name: OJRGE A RIVERA Rep #: [id number] : 1960 M 64 From: Rick Centeno MD PCP: Dr. Jeferson Coffey MD Status: REG CLI Study: Low Dose CT Lung Screening Date of Exam: 03/25 Exam# [id number] Ordering Dr: Jeferson Coffey MD EXAM: CT Chest, Lung Cancer Screening Without Intravenous Contrast CLINICAL INDICATION: LOW DOSE CT LUNG SCREENING; CHORNIC OBSTRUCTIVE PULMONARY DISEASE TECHNIQUE: Axial computed tomography images of the chest without intravenous contrast using low dose (LDCT) lung cancer screening protocol. This CT exam was performed using one or more of the following dose reduction techniques: automated exposure control, adjustment of the mA and/or kV according to patient size, and/or use of iterative reconstruction technique. COMPARISON: CT chest 11/03/2019 FINDINGS: LUNGS AND PLEURAL SPACES: Lung emphysema/COPD with bilateral apical scarring. Stable pleural thickening of the right lung base and anterior lateral left lung. Stable 4 mm nodule of the left upper lobe. Previously noted nodular density in the posterior left lower lobe resolved. Dependent atelectasis on the right. No significant effusion. No pneumothorax. No new suspicious pulmonary nodules. HEART: Unremarkable. No cardiomegaly. No significant pericardial effusion. No significant coronary artery calcifications. BONES/JOINTS: Unremarkable. No acute fracture. SOFT TISSUES: Unremarkable. VASCULATURE: Unremarkable. No thoracic aortic aneurysm. LYMPH NODES: Unremarkable. No enlarged lymph nodes. CT/Low Dose CT Lung Screening IMPRESSION: 1. No new suspicious pulmonary nodules. 2. LUNG-RADS 2: Benign. Continue low-dose CT screening of the chest in 12 months is recommended. Reading Location: [id number] CC: Dr. Jeferson Coffey MD Drop Wirer: Signed Normal [facility] Cardiovascular stress test r eportOrdered By: Ángel Nichole on 03-17-2025 Study report [facility] [address] [place] [address] MR#: [id number] Acct: [id number] Name: JORGE A RIVERA Rep #: [id number] : 1960 64 From: Ángel Nichole MD Primary Care: Dr. Jeferson Coffey MD Status : REG CLI Referring Dr: Karla Boyer Sex : M C Stress Test Report Exercise myocardial perfusion stress test. 64-year-old man with a history of chest pain Stress protocol: Resting EKG demonstrates normal sinus rhythm with a rate of 63 bpm resting bloodpressure is 142/80 mmHg. The patient exercised according to the regular Luis protocol for a total duration of 8 minutes attaining a maximum heart rate of 141bpm which was 90% of maximum predicted heart rate; the maximum workload was 10.1metabolic equivalents. At rest there were no ST or T wave changes noted to suggest ischemia and at peak exercise upsloping ST changes only were noted whichdid not meet the criteria for ischemia. No clinical angina was noted the test was terminated due to the target heart rate being achieved/fatigue. The peak blood pressure was 182/92 mmHg. Rate-pressure product was 23,600. Myocardial perfusion protocol. 10.8 mCi of technetium 99m sestamibi was injected at rest. The patient exercised according to regular Luis protocol for total duration of 8 minutes and at peak exercise 33.4 mCi of technetium 99m sestamibi was injected stress images were obtained stress and rest images were reconstructed in comparing the short axis vertical long and horizontal long axis. Gated images were also obtained. Perfusion SPECT analysis: Review of the stress images demonstrate normal uptake of tracer noted in all areas of the myocardium. The resting images similarly demonstrate normal uptakeof tracer noted in all areas of the myocardium. No areas of reversibility are noted to suggest ischemia no previous infarct was noted. Gated SPECT analysis: The gated ejection fraction is 63%. Conclusion: Normal exercise myocardial perfusion stress test at a high workload Preserved ejection fraction. 03/17/25 1039 Date _ Ángel Nichole MD CC: Dr. Jeferson Coffey MD; BIANCA Gibbs ~ Date Dictated: 03/17/251029 Date Transcribed: 03/17/251029 Drop Wirer: CO Signed [facility] Work Phone: Stress Reporton 03-17-2025 Stress Report [facility] [address] [place] [address] MR#: [id number] Acct: [id number] Name: JORGE A RIVERA Rep #: [id number] : 1960 64 From: Ángel Nichole MD Primary Care: Dr. Jeferson Coffey MD Status: REG CLI Referring Dr: Karla Boyer Sex: M C Stress Test Report Exercise myocardial perfusion stress test. 64-year-old man with a history of chest pain Stress protocol: Resting EKG demonstrates normal sinus rhythm with a rate of 63 bpm resting blood pressure is 142/80 mmHg. The patient exercised according to the regular Luis protocol for a total duration of 8 minutes attaining a maximum heart rate of 141 bpm which was 90% of maximum predicted heart rate; the maximum workload was 10.1 metabolic equivalents. At rest there were no ST or T wave changes noted to suggest ischemia and at peak exercise upsloping ST changes only were noted which did not meet the criteria for ischemia. No clinical angina was noted the test was terminated due to the target heart rate being achieved/fatigue. The peak blood pressure was 182/92 mmHg. Rate-pressure product was 23,600. Myocardial perfusion protocol. 10.8 mCi of technetium 99m sestamibi was injected at rest. The patient exercised according to regular Luis protocol for total duration of 8 minutes and at peak exercise 33.4 mCi of technetium 99m sestamibi was injected stress images were obtained stress and rest images were reconstructed in comparing the short axis vertical long and horizontal long axis. Gated images were also obtained. Perfusion SPECT analysis: Review of the stress images demonstrate normal uptake of tracer noted in all areas of the myocardium. The resting images similarly demonstrate normal uptake of tracer noted in all areas of the myocardium. No areas of reversibility are noted to suggest ischemia no previous infarct was noted. Gated SPECT analysis: The gated ejection fraction is 63%. Conclusion: Normal exercise myocardial perfusion stress test at a high workload Preserved ejection fraction. 03/17/25 103 Date Ángel Nichole MD CC: Dr. Jeferson Coffey MD; BIANCA Gibbs Date Dictated: 03/17/25 1030 Date Transcribed: 03/17/251029 Drop Wirer: CO Signed Normal [facility] Cardiology Visit Reporton Cardiology Visit Report [facility] [address] [place] [address] OFFICE VISIT Date of Service: 03/02/25 MR#: [id number] Acct: [id number] Name: JORGE A RIVERA Rep #: [id number] : 1960 Provider: BIACNA Bailey Age/Sex: 64/M Location: [facility] Status: Signed HPI HPI History of Present Illness Details: JORGE A RIVERA, is a 64 year old white male who presents to the office today for an outpatient cardiovascular follow-up visit. He does have a history of underlying CAD status post CABG in December 2009, hypertension and hyperlipidemia. He was diagnosed with asbestos and PAD since he was here last. 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 From a cardiac standpoint, patient is doing well. He does not have any chest discomfort/heaviness/ tightness. His exercise tolerance is stable for his age. He does not have any worsening symptoms of shortness of breath. He denies any PND. He does not have any orthopnea. He does not have any symptoms of congestive heart failure. He does not have any palpitations that he is aware of. He does not have any lightheadedness or dizziness. He does not have any near-syncope or syncope. He does not have any lower extremity edema. He does not have any symptoms of claudication. Intake Vital Signs 04/24/24 14:43 02/23/25 09:03 03/02/25 08:18 Height 5 ft 10 in 5 ft 10 in 5 ft 10 in Weight: 151 lb BMI 21.7 BP 156/89 H Blood Pressure Location Lt brachial Position Sitting Respiration 14 Pulse 80 Pulse Source NIBP Intake Visit Reasons: 9 M FU Lapper Required: No Is patient in pain?: No Allergies ibuprofen (From Advil) Adverse Reaction (Intermediate, Verified 03/02/25 08:20) SOB Medications ???Medication ???Instructions ???Recorded ???Confirmed ???Type aspirin 81 mg tablet,delayed 81 mg PO QDAY heart 11/29/1703/02 History release (Adult Aspirin Regimen) coenzyme Q10 100 mg capsule (Co 100 mg PO QDAY vitamin 11/29/17 History Q-10) multivitamin 1 tab PO QDAY vitamin 11/29/1704/21 History omega-3 fatty acids 1,000 mg 1,000 mg PO QDAY heart health 12/1503/02/25 History capsule (Fish Oil Concentrate) sodium bicarbonate 325 mg tablet 650 mg PO TID PRN 04/24/24 5 History albuterol sulfate 90 mcg/actuation 2 puff inhalation Q6H PRN 03/02/25 History aerosol inhaler atenolol 25 mg tablet 25 mg PO QDAY #90 tabs 12/30/24 Rx amlodipine 2.5 mg tablet (Norvasc) 2.5 mg PO QDAY #90 tabs 03/02/25 03/02/25 Rx atorvastatin 10 mg tablet 10 mg PO QHS 03/02/25 03/02/25 His tory lisinopril 10 mg tablet 10 mg PO BID 03/02/25 03/02/25 His tory Ejection fraction %: 55 Have you fallen in the past year?: No PFSH Medical History (Updated 03/02/25 @ 08:44 by Karla Boyer PA, PA) Hypertension Hx of asbestos exposure History of SIADH Carotid bruit Essential hypertension COPD (chronic obstructive pulmonary disease) Hyperlipidemia Atherosclerotic heart disease of [place] coronary artery without angina pectoris Surgical History History of colonoscopy History of coronary artery bypass surgery ( 01/11/10) History of hand surgery History of tonsillectomy History of left heart catheterization Family History Father CAD (coronary artery disease) S/P CABG (coronary artery bypass graft) Mother CAD (coronary artery disease) Hypertension Kidney disease Brother CAD (coronary artery disease) S/P CABG (coronary artery bypass graft) Sister S/P CABG (coronary artery bypass graft) CAD (coronary artery disease) Diabetes Social History household members: spouse Smoking Status: Former smoker quit date: 10/28/09 pack-years: 30 alcohol intake: never substance use type: does not use caffeine: Yes Type: coffee Number of servings: 2 ROS Const Const: Negative for fatigue or weakness Eyes Eyes: Negative for change in vision ENT ENT: Negative for dizziness or balance problems Cardio Chest Pain: No Palpitations: No Edema: None Resp Respiratory: Negative for SOB with activity, SOB at rest or SOB orthopnea SOB lying down GI GI: Negative nausea or heartburn Musc Musc: Negative for balance problems Neuro Neuro: Negative for dizziness, lightheadedness, near syncope, syncope or weakness Endo Endo: Negative for fatigue Cardiology Exam Const Appearance: cooperative, healthy appearing, comfortable, no acute distress, well developed and well groomed Nutritional Appearance: thin Orientation: alert, awake and oriented x3 Head Head: normal to inspection, normocephalic and atraumatic Ears: heari (more content not included)... Normal [facility] Chest PA and Lateralon 02-23 Chest PA and Lateral [facility] Imaging Services [address] [place] [address] Chest PA and Lateral MR#: [id number] Acct: [id number] Name: JORGE A RIVERA Rep #: [id number] : 1960 M 64 From: Rick Bautista MD PCP: Dr. Jeferson Coffey MD Status: DEP AMB Study: Chest PA and Lateral Date of Exam: 02/23/25 Exam# [id number] Ordering Dr: Jeferson Coffey MD PROCEDURE: CHEST PA AND LATERAL (RADCXR), 02/23/2025 REASON FOR EXAM: COUGH X 11 DAYS, NO IMPROVEMENT TECHNIQUE: PA and lateral views of the chest were obtained. COMPARISON: 07/17/2021 ; note that images only are available for review, the report is not available at the time of the dictation. FINDINGS: Heart: Unremarkable. Mediastinum: Atherosclerosis. Sternotomy.. Lungs/pleura: Emphysema. Areas of chronic presumed atelectasis/scarring are similar. Similar chronic pleural thickening or along the LEFT lung base laterally. No visible pneumothorax. Bones: Demineralization. Multilevel spondylosis.. Lines and support devices: None. Other: None. RAD/Chest PA and Lateral IMPRESSION: 1. Emphysema with grossly similar areas of chronic presumed atelectasis/scarring. No definite evidence of superimposed pneumonia. Given the context and emphysema, CT may be warranted based on the degree of clinical concern. Regardless, recommend ongoing outpatient lung cancer screening per the below. 2. Additional description as above. The USPSTF recommends annual screening for lung cancer with low-dose computed tomography (LDCT) in adults aged 50 to 80 years who have a 20 pack-year smoking history and currently smoke or have quit within the past 15 years. Reading Location: [id number] CC: Dr. Jeferson Coffey MD Drop Wirer: Signed Normal [facility] Anion gap in Serum or Plasma Ordered By: Jeferson Coffey on 02-19-2025 Anion gap [Moles/Vol] 10 mmol/L 5-15 [facility] BUN/creatinine ratioOrdered By: Jeferson Coffey on 02-19-2025 Urea nitrogen/Creatinine [Mass ratio] 18.6 mg/mg - [facility] Basic Metabolic Profile (BMP )on 02-19-2025 BUN/CRE 18.6 RATIO Normal - [facility] Comment on above: Performed By: #### L 500.2500 #### [facility] [address] [place], [address] Calcium [Mass/Vol] 9.1 mg/dL Normal 7.6-11.0 [facility] Comment on above: Performed By: #### L 500.2500 #### [facility] [address] [place], [address] Chloride [Moles/Vol] 93 mmol/L Low 98-108 [facility] Comment on above: Performed By: #### L 500.2500 #### [facility] [address] [place], [address] CO2 [Moles/Vol] 24.8 mmol/L Normal 21.0-32.0 [facility] Comment on above: Performed By: #### L 500.2500 #### [facility] [address] [place], [address] Creatinine [Mass/Vol] 0.78 mg/dL Normal 0.70-1.20 [facility] Comment on above: Performed By: #### L 500.2500 #### [facility] [address] [place], [address] GAP 10 Normal 5-15 [facility] Comment on above: Performed By: #### L 500.2500 #### [facility] [address] [place], [address] GFR/1.73 sq M.predicted among non-blacks MDRD (S/P/Bld) [Vol rate/Area] 99 mL/min/{1.73_m2} Normal >60 [facility] Comment on above: Result Comment: mL/m in/1.73m2 CKD-EPI Creatinine Equation (2020) Performed By: #### L 500.2500 #### [facility] [address] [place], [address] Glucose [Mass/Vol] 139 mg/dL High 70-99 [facility] Comment on above: Performed By: #### L 500.2500 #### [facility] [address] [place], [address] Potassium [Moles/Vol] 4.2 mmol/L Normal 3.3-5.1 [facility] Comment on above: Performed By: #### L 500.2500 #### [facility] [address] [place], [address] Sodium [Moles/Vol] 128 mmol/L Low 133-145 [facility] Comment on above: Performed By: #### L 500.2500 #### [facility] [address] [place], [place], [address] Urea nitrogen [Mass/Vol] 15 mg/dL Normal 4-19 [facility] Comment on above: Performed By: #### L 500.2500 #### [facility] [address] [place], [place], [address] Carbon dioxide, total [Moles /volume] in Central venous bloodOrdered By: Jeferson Coffey on 02-19-2025 CO2 [Moles/Vol] 24.8 mmol/L 21.0-32.0 [facility] Chloride assayOrdered By: Alonso Coffey on 02-19-2025 Chloride [Moles/Vol] 93 mmol/L Low 98-108 [facility] Glomerular filtration rate ( GFR) estimation/1.73 sq m using serum, plasma, or whole bOrdered By: Jeferson Coffey on 02-19-2025 GFR/1.73 sq M.predicted among non-blacks MDRD (S/P/Bld) [Vol rate/Area] 99 mL/min/{1.73_m2} >60 [facility] Comment on above: mL/min/1.73m2 CKD-EP I Creatinine Equation (2020) Potassium measurement (mass/ volume)Ordered By: Jeferson Coffey on 02-19-2025 Potassium (Unsp spec) [Mass/Vol] 4.2 mmol/L 3.3-5.1 [facility] Serum creatinine measurement (mass/volume)Ordered By: Jeferson Coffey on 02-19-2025 Creatinine [Mass/Vol] 0.78 mg/dL 0.70-1.20 [facility] Serum glucose measurement (m ass/volume)Ordered By: Jeferson Coffey on 02-19-2025 Glucose [Mass/Vol] 139 mg/dL High 70-99 [facility] Serum or plasma calcium adelso urement (mass/volume)Ordered By: Jeferson Coffey on 02-19-2025 Calcium [Mass/Vol] 9.1 mg/dL 7.6-11.0 [facility] Serum or plasma urea nitroge n measurement (mass/volume)Ordered By: Jeferson Coffey on 02-19-2025 Urea nitrogen [Mass/Vol] 15 mg/dL 4-19 [facility] Sodium levelOrdered By: Jeferson Coffey on 02-19-2025 Sodium [Moles/Vol] 128 mmol/L Low 133-145 [facility] Renal function 2000 panelon 02-10-2025 Albumin [Mass/Vol] 4.4 g/dL Normal 3.9-4.9 [facility] Comment on above: Order Comment: Speci men Type: BLOOD SPECIMENOrdering Facility: [facility] Address: [address] [place], [place] [id number] Performed By: #### 2 4362-6 ####[facility]OS[facility]ITALALEJANDROJohnathon [id number] [place] [address] [place] Anion gap [Moles/Vol] 8 mmol/L Normal 8-15 [facility] Comment on above: Order Comment: Speci men Type: BLOOD SPECIMENOrdering Facility: [facility] Address: [address] [place], [place] [address] Performed By: #### 2 4362-6 ####[facility] HOSPITALCALVIN [id number] [place] [address] [place] Calcium [Mass/Vol] 9.6 mg/dL Normal 8.5-10.2 [facility] Comment on above: Order Comment: Speci men Type: BLOOD SPECIMENOrdering Facility: [facility] Address: [address] [id number] Performed By: #### 2 4362-6 ####[facility] HOSPITALTYRAA [id number] [place] [address] [place] Chloride [Moles/Vol] 96 mmol/L Low 98-107 [facility] Comment on above: Order Comment: Speci men Type: BLOOD SPECIMENOrdering Facility: [facility] Address: [address] [place], [place] [id number] Performed By: #### 2 4362-6 ####[facility] HOSPITALNCLIA [id number] [place] [address] [place] CO2 [Moles/Vol] 27 mmol/L Normal 22-30 [facility] Comment on above: Order Comment: Speci men Type: BLOOD SPECIMENOrdering Facility: [facility] Address: [address] [place] [address] Performed By: #### 2 4362-6 ####[facility] HOS[facility]ITALNCLI [id number] [place] [address] [place] Creatinine [Mass/Vol] 0.71 mg/dL Low 0.73-1.22 [facility] Comment on above: Order Comment: Speci men Type: BLOOD SPECIMENOrdering Facility: [facility] Address: [address] [place] [address] Performed By: #### 2 4362-6 ####[facility] [id number] [place] [address] [place] Creatinine and Glomerular filtration rate.predicted panel (S/P/Bld) 102 mL/min/1.73m??? Normal >=60 [facility] Comment on above: Order Comment: Speci men Type: BLOOD SPECIMENOrdering Facility: [facility] Address: [address] [place] [address] Result Comment: Kitty mated Glomerular Filtration Rate (eGFR) is calculated using the 2020 CKD-EPI creatinine equation. This equation utilizes serum creatinine, sex, and age as parameters. The creatinine assay has traceable calibration to isotope dilution-mass spectrometry. Refer to KDIGO guidelines for clinical interpretation. In patients with unstable renal function, e.g. those with acute kidney injury, the eGFR may not accurately reflect actual GFR. Performed By: #### 2 4362-6 ####[facility] DAYTONA BEACHWNCLIA [id number] [place] [address] [place] Glucose [Mass/Vol] 77 mg/dL Normal 74-99 [facility] Comment on above: Order Comment: Speci men Type: BLOOD SPECIMENOrdering Facility: [facility] Address: [address] [place], [place] [id number] Result Comment: The [place] Diabetes Association (ADA) provides guidance for cutoff values for fasting glucose and random glucose. The ADA defines fasting as no caloric intake for at least 8 hours. Fasting plasma glucose results between 100 to 125 mg/dL indicate increased risk for diabetes (prediabetes). Fasting plasma glucose results greater than or equal to 126 mg/dL meet the criteria for diagnosis of diabetes. In the absence of unequivocal hyperglycemia, results should be confirmed by repeat testing. In a patient with classic symptoms of hyperglycemia or hyperglycemic crisis, random plasma glucose results greater than or equal to 200 mg/dL meet the criteria for diagnosis of diabetes. Reference: Standards of Medical Care in Diabetes 2016, [place] Diabetes Association. Diabetes Care. 2016.39(Suppl 1). Performed By: #### 2 4362-6 ####[facility]OS[facility]ITALALEJANDROJohnathon [id number] [place] [address] [place] Phosphate [Mass/Vol] 4.0 mg/dL Normal 2.7-4.8 [facility] Comment on above: Order Comment: Gm arroyo Type: BLOOD SPECIMENOrdering Facility: [facility] Address: [address] [place] [address] Performed By: #### 2 4362-6 ####[facility]ITALCALVIN [id number] [place] [address] [place] Potassium [Moles/Vol] 4.5 mmol/L Normal 3.7-5.1 [facility] Comment on above: Order Comment: Simonei men Type: BLOOD SPECIMENOrdering Facility: [facility] Address: [address] [place], [place] [id number] Performed By: #### 2 4362-6 ####[facility] HOSPITALNCLIA [id number] [place] [address] [place] Sodium [Moles/Vol] 131 mmol/L Low 136-144 [facility] Comment on above: Order Comment: Speci men Type: BLOOD SPECIMENOrdering Facility: [facility] Address: [address] [id number] Performed By: #### 2 4362-6 ####[facility]ITALNCPR[facility] [id number] [place] [address] [place] Urea nitrogen [Mass/Vol] 16 mg/dL Normal 9-24 [facility] Comment on above: Order Comment: Speci men Type: BLOOD SPECIMENOrdering Facility: [facility] Address: Former[facility] named [facility] NADIARenuka [place] [id number] Performed By: #### 2 4362-6 ####[facility] [id number] [address] [place] Anion gap in Serum or Plasma Ordered By: eJferson Coffey on 12-31-2024 Anion gap [Moles/Vol] 10 mmol/L 5- [facility] BUN/creatinine ratioOrdered By: Jeferson Coffey on 12-31-2024 Urea nitrogen/Creatinine [Mass ratio] 18.8 mg/mg 10- [facility] System Bilirubin, totalOrdered By: Jeferson Coffey on 12-31-2024 Bilirubin [Mass/Vol] 0.68 mg/dL 0.00-1.30 [facility] Calculated very low density lipoprotein (VLDL) cholesterol measurementOrdered By: Jeferson Coffey on 12-31-2024 Calculated very low density lipoprotein (VLDL) cholesterol measurement 11 mg/dL - [facility] VLDL Cholesterol 11 mg/dL - [facility] Carbon dioxide, total [Moles /volume] in Central venous bloodOrdered By: Jeferson Coffey on 12-31-2024 CO2 [Moles/Vol] 26.0 mmol/L 21.0-32.0 [facility] Chloride assayOrdered By: Alonso Coffey on 12-31-2024 Chloride [Moles/Vol] 96 mmol/L Low 98-108 [facility] Comprehensive Metabolic Prof ilon 12-31-2024 Albumin [Mass/Vol] 4.0 g/dL Normal 3.4-4.8 [facility] Comment on above: Performed By: #### L 500.4050, L500.4100 #### [facility] [address] [place], [address] Albumin/Globulin [Mass ratio] 1.4 {ratio} Normal 0.9-2.4 [facility] Comment on above: Performed By: #### L 500.4050, L500.4100 #### [facility] [address] [place], [address] ALK PHOS 78 U/L Normal 40-129 [facility] Comment on above: Performed By: #### L 500.4050, L500.4100 #### [facility] [address] [place], [address] ALT [Catalytic activity/Vol] 18 U/L Normal <=46 [facility] Comment on above: Performed By: #### L 500.4050, L500.4100 #### [facility] [address] [place], [address] AST [Catalytic activity/Vol] 23 U/L Normal <=37 [facility] Comment on above: Performed By: #### L 500.4050, L500.4100 #### [facility] [address] [place], [address] Bilirubin [Mass/Vol] 0.68 mg/dL Normal 0.00-1.30 [facility] Comment on above: Performed By: #### L 500.4050, L500.4100 #### [facility] [address] [place], [address] BUN/CRE 18.8 RATIO Normal 10-20 [facility] Comment on above: Performed By: #### L 500.4050, L500.4100 #### [facility] [address] [place], [address] Calcium [Mass/Vol] 9.2 mg/dL Normal 7.6-11.0 [facility] Comment on above: Performed By: #### L 500.4050, L500.4100 #### [facility] [address] [place], [address] Chloride [Moles/Vol] 96 mmol/L Low 98-108 [facility] Comment on above: Performed By: #### L 500.4050, L500.4100 #### [facility] [address] [place], [address] CO2 [Moles/Vol] 26.0 mmol/L Normal 21.0-32.0 [facility] Comment on above: Performed By: #### L 500.4050, L500.4100 #### [facility] [address] [place], [address] Creatinine [Mass/Vol] 0.83 mg/dL Normal 0.70-1.20 [facility] Comment on above: Performed By: #### L 500.4050, L500.4100 #### [facility] [address] [place], [address] GAP 10 Normal 5-15 [facility] Comment on above: Performed By: #### L 500.4050, L500.4100 #### [facility] [address] [place], [address] GFR/1.73 sq M.predicted among non-blacks MDRD (S/P/Bld) [Vol rate/Area] 97 mL/min/{1.73_m2} Normal >60 [facility] Comment on above: Result Comment: mL/m in/1.73m2 CKD-EPI Creatinine Equation (2020) Performed By: #### L 500.4050, L500.4100 #### [facility] [address] [place], [address] Globulin (S) [Mass/Vol] 2.9 g/dL Normal 2.2-4.2 [facility] Comment on above: Performed By: #### L 500.4050, L500.4100 #### [facility] [address] [place], [address] Glucose [Mass/Vol] 84 mg/dL Normal 70-99 [facility] Comment on above: Performed By: #### L 500.4050, L500.4100 #### [facility] [address] [place], [address] Potassium [Moles/Vol] 4.5 mmol/L Normal 3.3-5.1 [facility] Comment on above: Performed By: #### L 500.4050, L500.4100 #### [facility] [address] [place], [address] Sodium [Moles/Vol] 132 mmol/L Low 133-145 [facility] Comment on above: Performed By: #### L 500.4050, L500.4100 #### [facility] [address] [place], [address] T PROT 6.9 g/dL Normal 5.9-8.4 [facility] Comment on above: Performed By: #### L 500.4050, L500.4100 #### [facility] [address] [place], [address] Urea nitrogen [Mass/Vol] 16 mg/dL Normal 4-19 [facility] Comment on above: Performed By: #### L 500.4050, L500.4100 #### [facility] [address] [place], [address] GFR/1.73 sq M.predicted geo g non-blacks MDRD (S/P/Bld) [Vol rate/Area]Ordered By: Jeferson Coffey on 12-31-2024 Estimated GFR (MDRD) Non-Af Amer 97 >60 [facility] Comment on above: mL/min/1.73m2 CKD-EP I Creatinine Equation (2020) Glomerular filtration rate ( GFR) estimation/1.73 sq m using serum, plasma, or whole bOrdered By: Jeferson Coffey on 12-31-2024 GFR/1.73 sq M.predicted among non-blacks MDRD (S/P/Bld) [Vol rate/Area] 97 mL/min/{1.73_m2} >60 [facility] Comment on above: mL/min/1.73m2 CKD-EP I Creatinine Equation (2020) LDL calc ser/plasOrdered By: Jeferson Coffey on 12-31-2024 Cholesterol in LDL [Mass/Vol] 85 mg/dL [facility] Comment on above: Arwavvoshi=116-697 m g/dL & Higher Wqef=306 mg/dL or greater LDL Cholesterol, Calculated 85 mg/dL [facility] Comment on above: Wzktnxbvlu=270-303 m g/dL & Higher Osoj=799 mg/dL or greater Laboratory - Chemistry and C hemistry - challengeOrdered By: Jeferson Coffey on 12-31-2024 AST [Catalytic activity/Vol] 23 U/L <38 [facility] Lipid Profileon 12-31-2024 CHOL:HDL 2.54 Normal [facility] Comment on above: Performed By: #### L 500.4050, L500.4100 #### [facility] [address] [place], [place], [id number] (175) Cholesterol [Mass/Vol] 159 mg/dL Normal <=200 [facility] Comment on above: Result Comment: Chol esterol level, Desirable <200 mg/dL Borderline high cholesterol 200-239 mg/dL High cholesterol >=240 mg/dL Recommendations of the NCEP Adult Treatment Panel for the following risk-cutoff thresholds for the [place] population. Performed By: #### L 500.4050, L500.4100 #### [facility] [address] [place], [place], [id number] (408) Cholesterol in HDL [Mass/Vol] 63 mg/dL Normal [facility] Comment on above: Result Comment: Sonal onal Cholesterol Education Program (NCEP) guidelines: <40 mg/dL: Low HDL-cholesterol (major risk factor for CHD) >= 60 mg/dL: High HDL-cholesterol (negative risk factor for CHD) HDL-cholesterol is affected by a number of factors, e.g. smoking, exercise, hormones, sex and age. Performed By: #### L 500.4050, L500.4100 #### [facility] [address] [place], [address] Cholesterol in LDL [Mass/Vol] 85 mg/dL Normal [facility] Comment on above: Result Comment: Bord zsvvgk=363-940 mg/dL Higher Lneg=260 mg/dL or greater Performed By: #### L 500.4050, L500.4100 #### [facility] [address] [place], [address] Cholesterol in VLDL [Mass/Vol] 11 mg/dL Normal 5-40 [facility] Comment on above: Performed By: #### L 500.4050, L500.4100 #### [facility] [address] [place], [address] Triglyceride [Mass/Vol] 55 mg/dL Normal [facility] Comment on above: Result Comment: The drugs N-Acetylcysteine and Metamizole may falsely depress this assay. Normal range: <150 mg/dL Borderline High: 150-199 mg/dL High: 200-499 mg/dL Very High: >500 mg/dL Performed By: #### L 500.4050, L500.4100 #### [facility] [address] [place], [address] Potassium (Unsp spec) [Mass/ Vol]Ordered By: Jeferson Coffey on 12-31-2024 Potassium [Moles/Vol] 4.5 mmol/L 3.3-5.1 [facility] Potassium measurement (mass/ volume)Ordered By: Jeferson Coffey on 12-31-2024 Potassium (Unsp spec) [Mass/Vol] 4.5 mmol/L 3.3-5.1 [facility] Screening total cholesterol/ high density lipoprotein (HDL) cholesterol ratioOrdered By: Jeferson Coffey on 12-31-2024 Cholesterol.total/Chol esterol in HDL [Mass ratio] 2.54 {ratio} [facility] Serum creatinine measurement (mass/volume)Ordered By: Jeferson Coffey on 12-31-2024 Creatinine [Mass/Vol] 0.83 mg/dL 0.70-1.20 [facility] Serum globulin measurementOr dered By: Jeferson Coffey on 12-31-2024 Globulin (S) [Mass/Vol] 2.9 g/dL 2.2-4.2 [facility] Serum glucose measurement (m ass/volume)Ordered By: Jeferson Coffey on 12-31-2024 Glucose [Mass/Vol] 84 mg/dL 70-99 [facility] Serum or plasma alanine real otransferase (ALT) measurementOrdered By: Jeferson Coffey on 12-31-2024 ALT [Catalytic activity/Vol] 18 U/L <47 [facility] Serum or plasma albumin adelso urement (mass/volume)Ordered By: Jeferson Coffey on 12-31-2024 Albumin [Mass/Vol] 4.0 g/dL 3.4-4.8 [facility] Serum or plasma albumin/glob ulin mass ratioOrdered By: Jeferson Coffye on 12-31-2024 Albumin/Globulin [Mass ratio] 1.4 {ratio} 0.9-2.4 [facility] Serum or plasma alkaline jo sphatase measurementOrdered By: Jeferson Coffey on 12-31-2024 ALP [Catalytic activity/Vol] 78 U/L 40-129 [facility] Serum or plasma calcium adelso urement (mass/volume)Ordered By: Jeferson Coffey on 12-31-2024 Calcium [Mass/Vol] 9.2 mg/dL 7.6-11.0 [facility] Serum or plasma cholesterol in HDL measurement (mass/volume)Ordered By: Jeferson Coffey on 12-31-2024 Cholesterol in HDL [Mass/Vol] 63 mg/dL >40 [facility] Comment on above: National Cholesterol Education Program (NCEP) guidelines:<40 mg/dL: Low HDL-cholesterol (major risk factor for CHD)>= 60 mg/dL: High HDL-cholesterol (negative risk factor for CHD)HDL-cholesterol is affected by a number of factors, e.g. smoking, exercise, hormones, sex and age. Serum or plasma cholesterol measurement (mass/volume)Ordered By: Jeferson Coffey on 12-31-2024 Cholesterol [Mass/Vol] 159 mg/dL <201 [facility] Comment on above: Cholesterol level, D esirable <200 mg/dLBorderline high cholesterol 200-239 mg/dLHigh cholesterol >=240 mg/dLRecommendations of the NCEP Adult Treatment Panel for the following risk-cutoff thresholds for the [place] population. Serum or plasma urea nitroge n measurement (mass/volume)Ordered By: Jeferson Coffey on 12-31-2024 Urea nitrogen [Mass/Vol] 16 mg/dL 4-19 [facility] Sodium levelOrdered By: Jeferson Coffey on 12-31-2024 Sodium [Moles/Vol] 132 mmol/L Low 133-145 [facility] Total proteinOrdered By: Filipe Coffey on 12-31-2024 Protein [Mass/Vol] 6.9 g/dL 5.9-8.4 [facility] Triglycerides measurementOrd ered By: Jeferson Coffey on 12-31-2024 Triglyceride [Mass/Vol] 55 mg/dL <199 [facility] Comment on above: The drugs N-Acetylcy steine and Metamizole may falsely depress this assay. Normal range: <150 mg/dLBorderline High: 150-199 mg/dLHigh: 200-499 mg/dLVery High: >500 mg/dL Basic Metabolic Profile (BMP )on 12-14-2024 BUN/CRE 22.2 RATIO High 10-20 [facility] Comment on above: Performed By: #### L 500.2500 ####[facility] [address] [place], [address] CA,Total 8.8 mg/dL Normal 8.5-10.1 [facility] Comment on above: Performed By: #### L 500.2500 ####[facility] [address] [place], [address] Chloride [Moles/Vol] 95 mmol/L Low 98-107 [facility] Comment on above: Performed By: #### L 500.2500 ####[facility] [address] [place], [address] CO2 [Moles/Vol] 28.0 mmol/L Normal 21.0-32.0 [facility] Comment on above: Performed By: #### L 500.2500 ####[facility] [address] [place], [address] Creatinine [Mass/Vol] 0.81 mg/dL Normal 0.70-1.30 [facility] Comment on above: Result Comment: The validity of the calculated GFR GFRAA in patients over 70 years has not been determined. Clinical correlation is essential. Performed By: #### L 500.2500 ####[facility] [address] [place], [address] EST GFR - AA 123 mL/min Normal >60 [facility] Comment on above: Result Comment: Afri can Gambian GFR Calc Performed By: #### L 500.2500 ####[facility] [address] [place], [address] GAP 7 Normal 5-15 [facility] Comment on above: Performed By: #### L 500.2500 ####[facility] [address] [place], [address] GFR/1.73 sq M.predicted among non-blacks MDRD (S/P/Bld) [Vol rate/Area] 101 mL/min/{1.73_m2} Normal >60 [facility] Comment on above: Result Comment: Non- GFR Calc Performed By: #### L 500.2500 ####[facility] [address] [place], [address] Glucose [Mass/Vol] 114 mg/dL High 74-106 [facility] Comment on above: Result Comment: Fast ing Glucose result from 100 to 125 mg/dL suggests IMPAIRED HOMEOSTASIS per A.D.A. criteria. Performed By: #### L 500.2500 ####[facility] [address] [place], [address] Potassium [Moles/Vol] 3.7 mmol/L Normal 3.5-5.1 [facility] Comment on above: Performed By: #### L 500.2500 ####[facility] [address] [place], [address] Sodium [Moles/Vol] 129 mmol/L Low 136-145 [facility] Comment on above: Performed By: #### L 500.2500 ####[facility] [address] [place], [address] Urea nitrogen [Mass/Vol] 18 mg/dL Normal 7-18 [facility] Comment on above: Performed By: #### L 500.2500 ####[facility] [address] [place], [address] Blood urea nitrogen (BUN)/cr eatinine ratioOrdered By: Jeferson Coffey on 12-14-2024 Urea nitrogen/Creatinine [Mass ratio] 22.2 mg/mg High 10-20 [facility] Carbon dioxide measurementOr dered By: Jeferson Coffey on 12-14-2024 CO2 [Moles/Vol] 28.0 mmol/L 21.0-32.0 [facility] Chloride measurementOrdered By: Jeferson Coffey on 12-14-2024 Chloride [Moles/Vol] 95 mmol/L Low 98-107 [facility] Estimated glomerular filtrat ion rate (GFR) AmericanOrdered By: Jeferson Coffey on 12-14-2024 Estimated GFR (MDRD) Amer 123 mL/min >60 [facility] Comment on above: GFR Calc Glomerular filtration rate ( GFR) estimationOrdered By: Jeferson Coffey on 12-14-2024 Estimated GFR (MDRD) Non-Af Amer 101 mL/min >60 [facility] Comment on above: Non- GFR Calc GFR/1.73 sq M.predicted among non-blacks MDRD (S/P/Bld) [Vol rate/Area] 101 mL/min/{1.73_m2} >60 [facility] Comment on above: Non- GFR Calc Glucose measurementOrdered B y: Jeferson Coffey on 12-14-2024 Glucose [Mass/Vol] 114 mg/dL High 74-106 [facility] Comment on above: Fasting Glucose resu lt from 100 to 125 mg/dL suggests IMPAIRED HOMEOSTASIS per A.D.A. criteria. Potassium measurementOrdered By: Jeferson Coffey on 12-14-2024 Potassium [Moles/Vol] 3.7 mmol/L 3.5-5.1 [facility] Serum anion gap measurementO rdered By: Jeferson Coffey on 12-14-2024 Anion gap [Moles/Vol] 7 mmol/L 5-15 [facility] Serum or plasma calcium adelso urement (mass/volume)Ordered By: Jeferson Coffey on 12-14-2024 Calcium [Mass/Vol] 8.8 mg/dL 8.5-10.1 [facility] Serum or plasma creatinine m easurement (mass/volume)Ordered By: Jeferson Coffey on 12-14-2024 Creatinine [Mass/Vol] 0.81 mg/dL 0.70-1.30 [facility] Comment on above: The validity of the calculated GFR & GFRAA in patients over 70 years has not been determined. Clinical correlation is essential. Serum or plasma urea nitroge n measurement (mass/volume)Ordered By: Jeferson Coffey on 12-14-2024 Urea nitrogen [Mass/Vol] 18 mg/dL 7-18 [facility] Sodium levelOrdered By: Jeferson Coffey on 12-14-2024 Sodium [Moles/Vol] 129 mmol/L Low 136-145 [facility] Albumin to globulin ratioOrd ered By: Jeferson Coffey on 12-11-2024 Albumin/Globulin [Mass ratio] 1.1 {ratio} 0.9-2.4 [facility] Basic Metabolic Profile (BMP )on 12-11-2024 BUN/CRE 14.4 RATIO Normal 10-20 [facility] Comment on above: Performed By: #### L 500.2500 #### [facility] [address] [place], [address] CA,Total 8.8 mg/dL Normal 8.5-10.1 [facility] Comment on above: Performed By: #### L 500.2500 #### [facility] [address] [place], [address] Chloride [Moles/Vol] 86 mmol/L Low 98-107 [facility] Comment on above: Performed By: #### L 500.2500 #### [facility] [address] [place], [address] CO2 [Moles/Vol] 26.0 mmol/L Normal 21.0-32.0 [facility] Comment on above: Performed By: #### L 500.2500 #### [facility] [address] [place], [address] Creatinine [Mass/Vol] 0.76 mg/dL Normal 0.70-1.30 [facility] Comment on above: Result Comment: The validity of the calculated GFR GFRAA in patients over 70 years has not been determined. Clinical correlation is essential. Performed By: #### L 500.2500 #### [facility] [address] [place], [address] EST GFR - AA 131 mL/min Normal >60 [facility] Comment on above: Result Comment: Afri can Gambian GFR Calc Performed By: #### L 500.2500 #### [facility] [address] [place], [address] GAP 8 Normal 5-15 [facility] Comment on above: Performed By: #### L 500.2500 #### [facility] [address] [place], [address] GFR/1.73 sq M.predicted among non-blacks MDRD (S/P/Bld) [Vol rate/Area] 109 mL/min/{1.73_m2} Normal >60 [facility] Comment on above: Result Comment: Non- GFR Calc Performed By: #### L 500.2500 #### [facility] [address] [place], [address] Glucose [Mass/Vol] 131 mg/dL High 74-106 [facility] Comment on above: Result Comment: Fast ing Glucose result greater than or equal to 126 mg/dL suggests DIABETES MELLITUS per A.D.A. criteria. Performed By: #### L 500.2500 #### [facility] [address] [place], [address] Potassium [Moles/Vol] 3.6 mmol/L Normal 3.5-5.1 [facility] Comment on above: Performed By: #### L 500.2500 #### [facility] [address] [place], [address] Sodium [Moles/Vol] 121 mmol/L Low 136-145 [facility] Comment on above: Performed By: #### L 500.2500 #### [facility] [address] [place], [address] Urea nitrogen [Mass/Vol] 11 mg/dL Normal 7-18 [facility] Comment on above: Performed By: #### L 500.2500 #### [facility] [address] [place], [address] Bilirubin, totalOrdered By: Jeferson Coffey on 12-11-2024 Bilirubin [Mass/Vol] 0.60 mg/dL 0.20-1.00 [facility] Comment on above: For patients on eltr ombopag therapy, use of Dimension [place] TBIL is not recommended. Blood urea nitrogen (BUN)/cr eatinine ratioOrdered By: Jeferson Coffey on 12-11-2024 Urea nitrogen/Creatinine [Mass ratio] 14.4 mg/mg 10-20 [facility] Carbon dioxide measurementOr dered By: Jefersonjohnathon Coffey on 12-11-2024 CO2 [Moles/Vol] 26.0 mmol/L 21.0-32.0 [facility] Chloride measurementOrdered By: Jeferson Coffey on 12-11-2024 Chloride [Moles/Vol] 86 mmol/L Low 98-107 [facility] Comprehensive Metabolic Prof ilon 12-11-2024 Albumin [Mass/Vol] 3.9 g/dL Normal 3.2-5.0 [facility] Comment on above: Order Comment: GREEN TOP REJECTED - WAS BROUGHT IN AFTER 1400. Performed By: #### L 500.4050 #### [facility] [address] [place], [address] Albumin/Globulin [Mass ratio] 1.1 {ratio} Normal 0.9-2.4 [facility] Comment on above: Order Comment: GREEN TOP REJECTED - WAS BROUGHT IN AFTER 1400. Performed By: #### L 500.4050 #### [facility] [address] [place], [address] ALK P 108 U/L Normal 45-117 [facility] Comment on above: Order Comment: GREEN TOP REJECTED - WAS BROUGHT IN AFTER 1400. Performed By: #### L 500.4050 #### [facility] [address] [place], [address] ALT [Catalytic activity/Vol] 33 U/L Normal 16-61 [facility] Comment on above: Order Comment: GREEN TOP REJECTED - WAS BROUGHT IN AFTER 1400. Performed By: #### L 500.4050 #### [facility] [address] [place], [address] AST [Catalytic activity/Vol] 32 U/L Normal 15-37 [facility] Comment on above: Order Comment: GREEN TOP REJECTED - WAS BROUGHT IN AFTER 1400. Performed By: #### L 500.4050 #### [facility] [address] [place], [address] Bilirubin [Mass/Vol] 0.60 mg/dL Normal 0.20-1.00 [facility] Comment on above: Order Comment: GREEN TOP REJECTED - WAS BROUGHT IN AFTER 1400. Result Comment: For patients on eltrombopag therapy, use of Dimension [place] TBIL is not recommended. Performed By: #### L 500.4050 #### [facility] [address] [place], [address] BUN/CRE 15.5 RATIO Normal 10-20 [facility] Comment on above: Order Comment: GREEN TOP REJECTED - WAS BROUGHT IN AFTER 1400. Performed By: #### L 500.4050 #### [facility] [address] [place], [address] CA,Total 8.7 mg/dL Normal 8.5-10.1 [facility] Comment on above: Order Comment: GREEN TOP REJECTED - WAS BROUGHT IN AFTER 1400. Performed By: #### L 500.4050 #### [facility] [address] [place], [address] Chloride [Moles/Vol] 86 mmol/L Low 98-107 [facility] Comment on above: Order Comment: GREEN TOP REJECTED - WAS BROUGHT IN AFTER 1400. Performed By: #### L 500.4050 #### [facility] [address] [place], [address] CO2 [Moles/Vol] 26.0 mmol/L Normal 21.0-32.0 [facility] Comment on above: Order Comment: GREEN TOP REJECTED - WAS BROUGHT IN AFTER 1400. Performed By: #### L 500.4050 #### [facility] [address] [place], [address] Creatinine [Mass/Vol] 0.71 mg/dL Normal 0.70-1.30 [facility] Comment on above: Order Comment: GREEN TOP REJECTED - WAS BROUGHT IN AFTER 1400. Result Comment: The validity of the calculated GFR GFRAA in patients over 70 years has not been determined. Clinical correlation is essential. Performed By: #### L 500.4050 #### [facility] [address] [place], [address] EST GFR - AA 143 mL/min Normal >60 [facility] Comment on above: Order Comment: GREEN TOP REJECTED - WAS BROUGHT IN AFTER 1400. Result Comment: Afri can Gambian GFR Calc Performed By: #### L 500.4050 #### [facility] [address] [place], [address] GAP 9 Normal 5-15 [facility] Comment on above: Order Comment: GREEN TOP REJECTED - WAS BROUGHT IN AFTER 1400. Performed By: #### L 500.4050 #### [facility] [address] [place], [address] GFR/1.73 sq M.predicted among non-blacks MDRD (S/P/Bld) [Vol rate/Area] 118 mL/min/{1.73_m2} Normal >60 [facility] Comment on above: Order Comment: GREEN TOP REJECTED - WAS BROUGHT IN AFTER 1400. Result Comment: Non- GFR Calc Performed By: #### L 500.4050 #### [facility] [address] [place], [address] Globulin (S) [Mass/Vol] 3.4 g/dL Normal 2.2-4.2 [facility] Comment on above: Order Comment: GREEN TOP REJECTED - WAS BROUGHT IN AFTER 1400. Performed By: #### L 500.4050 #### [facility] [address] [place], [address] Glucose [Mass/Vol] 94 mg/dL Normal 74-106 [facility] Comment on above: Order Comment: GREEN TOP REJECTED - WAS BROUGHT IN AFTER 1400. Performed By: #### L 500.4050 #### [facility] [address] [place], [address] Potassium [Moles/Vol] 4.4 mmol/L Normal 3.5-5.1 [facility] Comment on above: Order Comment: GREEN TOP REJECTED - WAS BROUGHT IN AFTER 1400. Performed By: #### L 500.4050 #### [facility] [address] [place], [address] Sodium [Moles/Vol] 120 mmol/L Low 136-145 [facility] Comment on above: Order Comment: GREEN TOP REJECTED - WAS BROUGHT IN AFTER 1400. Performed By: #### L 500.4050 #### [facility] [address] [place], [address] T PROT 7.3 g/dL Normal 6.4-8.2 [facility] Comment on above: Order Comment: GREEN TOP REJECTED - WAS BROUGHT IN AFTER 1400. Performed By: #### L 500.4050 #### [facility] [address] [place], [address] Urea nitrogen [Mass/Vol] 11 mg/dL Normal 7-18 [facility] Comment on above: Order Comment: GREEN TOP REJECTED - WAS BROUGHT IN AFTER 1400. Performed By: #### L 500.4050 #### [facility] [address] [place], [address] Estimated glomerular filtrat ion rate (GFR) AmericanOrdered By: Jeferson Coffey on 12-11-2024 Estimated GFR (MDRD) Amer 131 mL/min >60 [facility] Comment on above: GFR Calc Glomerular filtration rate ( GFR) estimationOrdered By: Jeferson Coffey on 12-11-2024 Estimated GFR (MDRD) Non-Af Amer 109 mL/min >60 [facility] Comment on above: Non- GFR Calc GFR/1.73 sq M.predicted among non-blacks MDRD (S/P/Bld) [Vol rate/Area] 109 mL/min/{1.73_m2} >60 [facility] Comment on above: Non- GFR Calc Glucose measurementOrdered B y: Jeferson Coffey on 12-11-2024 Glucose [Mass/Vol] 131 mg/dL High 74-106 [facility] Comment on above: Fasting Glucose resu lt greater than or equal to 126 mg/dL suggests DIABETES MELLITUS per A.D.A. criteria. Laboratory - Chemistry and C hemistry - challengeOrdered By: Jeferson Coffey on 12-11-2024 AST [Catalytic activity/Vol] 32 U/L 15-37 [facility] Potassium measurementOrdered By: Jeferson Coffey on 12-11-2024 Potassium [Moles/Vol] 3.6 mmol/L 3.5-5.1 [facility] Serum anion gap measurementO rdered By: Jeferson Coffey on 12-11-2024 Anion gap [Moles/Vol] 8 mmol/L 5-15 [facility] Serum globulin measurementOr dered By: Jeferson Coffey on 12-11-2024 Globulin (S) [Mass/Vol] 3.4 g/dL 2.2-4.2 [facility] Serum or plasma alanine real otransferase (ALT) measurementOrdered By: Jeferson Coffey on 12-11-2024 ALT [Catalytic activity/Vol] 33 U/L 16-61 [facility] Serum or plasma albumin adelso urement (mass/volume)Ordered By: Jeferson Coffey on 12-11-2024 Albumin [Mass/Vol] 3.9 g/dL 3.2-5.0 [facility] Serum or plasma alkaline jo sphatase measurementOrdered By: Jeferson Coffey on 12-11-2024 ALP [Catalytic activity/Vol] 108 U/L 45-117 [facility] Serum or plasma calcium adelso urement (mass/volume)Ordered By: Jeferson Coffey on 12-11-2024 Calcium [Mass/Vol] 8.8 mg/dL 8.5-10.1 [facility] Serum or plasma creatinine m easurement (mass/volume)Ordered By: Jeferson Coffey on 12-11-2024 Creatinine [Mass/Vol] 0.76 mg/dL 0.70-1.30 [facility] Comment on above: The validity of the calculated GFR & GFRAA in patients over 70 years has not been determined. Clinical correlation is essential. Serum or plasma urea nitroge n measurement (mass/volume)Ordered By: Jeferson Coffey on 12-11-2024 Urea nitrogen [Mass/Vol] 11 mg/dL 7-18 [facility] Sodium levelOrdered By: Jeferson Coffey on 12-11-2024 Sodium [Moles/Vol] 121 mmol/L Low 136-145 [facility] Total proteinOrdered By: Filipe Coffey on 12-11-2024 Protein [Mass/Vol] 7.3 g/dL 6.4-8.2 [facility] CNOVon 11-18-2024 CNOV Office Visit (ABBY ) JORGE A RIVERA ([id number]) 1960 M Date Time Provider Department 11/18/24 9:00 AM RUBIO GRIMES During your visit today, we recorded the following information about you: Pulse Blood pressure Weight 78/minute 146/78 67.1 kg Rubio Grimes MD 11/18/2024 9:26 AM Signed [facility] NEPHROLOGY AND HYPERTENSION [facility] SERVICE DATE: 11/18/2024 CHIEF COMPLAINT: Hyponatremia f/u HPI: 64-year-old male with medical history significant for Hypertension, COPD, CAD s/p CABG around 2009 comes for follow-up of hyponatremia. Previous notes and results reviewed. Relevant events/history: 02/19/2024: Seen by me as a new consult. Chest x-ray was ordered. Started on sodium chloride pills. 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 08/13/2024: Last seen with Hair. Continued on salt pills and fluid restriction. 11/17/2024 Feels fine Had angiogram done for LE; apparently had 'small blockages' in the left leg; no intervention advised Has been restricting water- around 48-60 oz a day. Has been taking Sodium Chloride 2 gm three a day. Had Colonoscopy done yesterday; had a polyp and some diverticulosis SBP at home in 140s. 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 atorvastatin (LIPITOR) 10 mg tablet Take 5 mg by mouth once daily. atenolol (TENORMIN) 25 mg tablet Take 25 mg by mouth once daily. coenzyme Q10 (H2Q COQ10) 200 mg/gram powd Take by mouth once daily. aspirin, enteric coated (ASPIRIN, ENTERIC COATED) 81 mg EC tablet Take 81 mg by mouth once daily. Minburn-3 Fatty Acids-Vitamin E (FISH OIL) 1,000 mg cap Take 1 capsule by mouth once daily. Multivitamin capsule Take 1 capsule by mouth once daily. ALLERGIES: ALLERGIES No Known Allergies REVIEW OF SYSTEMS: Constitutional: No fevers, chills, weight loss Eyes: No loss in vision, photophobia Ear, Nose, and Throat: No epistaxis, nasal congestion Cardiovascular: No chest pain, ALBERT, SOB, palpitations Respiratory: No cough, hemoptysis Gastrointestinal: No diarrhea, constipation Genitourinary: No dysuria, polyuria Musculoskeletal: No joint pain, morning stiffness Skin: No rash, no ulcers Neurological: No headaches, seizures, paresthesias Psychiatric: No depression, anxiety Endocrine: No hair loss, no heat intolerance Hematologic:No easy bruising, easy bleeding PHYSICAL EXAM: There were no vitals taken for this visit. BP 146/78 Pulse 78 Wt 67.1 kg (148 lb) BMI 22.80 kg/m? BP - standardized method Pulse 1 BP #1: 149/79 Pulse #1: 78 beats/min 2 BP #2 : 145/78 Pulse #2 : 78 beats/min 3 BP #3 : 143/77 Pulse #3 : 78 beats/min Average Average BP: 146/78 Average Pulse: 78 beats/min Orthostatic vitals Supine Sitting Standing BP cuff location BP cuff size Comments for BP values First BP (right) First BP (left) Last 14 BP Last 14 Encounter BP Readings: Date: BP: 08/13/2024 173/87 05/21/2024 146/78 04/07/2024 129/75 03/30/2024 146/66 02/19/2024 131/79 04/13/2015 122/64 03/10/2015 116/76 03/10/2015 124/80 Last 2 Encounter Wt Readings: Date: Wt: 08/13/2024 64.9 kg (143 lb) 05/21/2024 65 kg (143 lb 4.8 oz) General: Awake, not in distress. HENT: Normocephalic. Eyes: PERRL, Anicteric Neck:Trachea midline, No JVD Respiratory: Clear bilaterally. CV: RRR, No murmurs, rubs, or gallops Abdomen: Soft, non-distended. Extremities: Pedal edema absent. Skin: No rashes. Neurologic: Alert and oriented x 3, no focal deficits. Psychiatric: Cooperative, normal mood/affect. DATA: Diagnostic tests reviewed for today's visit: Recent Labs 11/10/24 0817 NA 134* K 4.3 CHLOR 96* CO2 28 BUN 14 CREAT 0.76 GLUC 79 ANION 10 CA 9.5 P 3.8 Recent Labs 02/19/24 0915 COLOR Yellow CLARITY Clear UGLUC Negative UBILI Negative UKET Negative SPGR 1.016 UHB Negative UPH 7.0 UPROT Negative NITRITES Negative LEUKEST Negative UWBC 0-5 /HPF URBC 0-2 /HPF Recent Labs 02/19/24 0912 HB 14.1 Recent Labs 11/10/24 0817 03/20/24 1258 02/19/24 0912 ALKPHOS -- -- 83 CA 9.5 < > 9.7 P 3.8 < > 3.4 ALB 4.2 < > 4.6 < > = values in this interval not displayed. No results for input(s): BUNRAT, BUNPR, BUNPO in the last 168 hours. No results for input(s): HEPSABQ in the last 1440 h (more content not included)... Normal [facility] Renal function 2000 panelon 11-10-2024 Albumin [Mass/Vol] 4.2 g/dL Normal 3.9-4.9 [facility] Comment on above: Order Comment: Speci men Type: BLOOD SPECIMENOrdering Facility: [facility] Address: [address] [place] [address] Performed By: #### 2 4362-6 ####[facility] NIKHIL MILLTOWNCLIA [id number] [place] [address] [place] Anion gap [Moles/Vol] 10 mmol/L Normal 8-15 [facility] Comment on above: Order Comment: Speci men Type: BLOOD SPECIMENOrdering Facility: [facility] Address: [address] [place] [address] Performed By: #### 2 4362-6 ####[facility] MILLTOWNCLIA [id number] [place] [address] [place] Calcium [Mass/Vol] 9.5 mg/dL Normal 8.5-10.2 [facility] Comment on above: Order Comment: Speci men Type: BLOOD SPECIMENOrdering Facility: [facility] Address: [address] [place] [address] Performed By: #### 2 4362-6 ####[facility] MILLTOWNCLIA [id number] [place] [address] [place] Chloride [Moles/Vol] 96 mmol/L Low 98-107 [facility] Comment on above: Order Comment: Speci men Type: BLOOD SPECIMENOrdering Facility: [facility] Address: [address] [place] [address] Performed By: #### 2 4362-6 ####[facility] MILLTOWNCLIA [id number] [place] [address] [place] CO2 [Moles/Vol] 28 mmol/L Normal 22-30 [facility] Comment on above: Order Comment: Speci men Type: BLOOD SPECIMENOrdering Facility: [facility] Address: [address] [place] [address] Performed By: #### 2 4362-6 ####[facility] NIKHIL MILLTOWNCLIA [id number] [place] [address] [place] Creatinine [Mass/Vol] 0.76 mg/dL Normal 0.73-1.22 [facility] Comment on above: Order Comment: Gm arroyo Type: BLOOD SPECIMENOrdering Facility: [facility] Address: [address] [place] [address] Performed By: #### 2 4362-6 ####[facility] [id number] [place] [address] [place] Creatinine and Glomerular filtration rate.predicted panel (S/P/Bld) 100 mL/min/1.73m??? Normal >=60 [facility] Comment on above: Order Comment: Gm arroyo Type: BLOOD SPECIMENOrdering Facility: [facility] Address: [address] [place] [address] Result Comment: Kitty mated Glomerular Filtration Rate (eGFR) is calculated using the 2020 CKD-EPI creatinine equation. This equation utilizes serum creatinine, sex, and age as parameters. The creatinine assay has traceable calibration to isotope dilution-mass spectrometry. Refer to KDIGO guidelines for clinical interpretation. In patients with unstable renal function, e.g. those with acute kidney injury, the eGFR may not accurately reflect actual GFR. Performed By: #### 2 4362-6 ####[facility] [id number] [place] [address] [place] Glucose [Mass/Vol] 79 mg/dL Normal 74-99 [facility] Comment on above: Order Comment: Gm arroyo Type: BLOOD SPECIMENOrdering Facility: [facility] Address: [address] [place] [address] Result Comment: The [place] Diabetes Association (ADA) provides guidance for cutoff values for fasting glucose and random glucose. The ADA defines fasting as no caloric intake for at least 8 hours. Fasting plasma glucose results between 100 to 125 mg/dL indicate increased risk for diabetes (prediabetes). Fasting plasma glucose results greater than or equal to 126 mg/dL meet the criteria for diagnosis of diabetes. In the absence of unequivocal hyperglycemia, results should be confirmed by repeat testing. In a patient with classic symptoms of hyperglycemia or hyperglycemic crisis, random plasma glucose results greater than or equal to 200 mg/dL meet the criteria for diagnosis of diabetes. Reference: Standards of Medical Care in Diabetes 2016, [place] [employer] Association. Diabetes Care. 2016.39(Suppl 1). Performed By: #### 2 4362-6 ####[facility] [id number] [place] [address] [place] Phosphate [Mass/Vol] 3.8 mg/dL Normal 2.7-4.8 [facility] Comment on above: Order Comment: Speci men Type: BLOOD SPECIMENOrdering Facility: [facility] Address: [address] [place], [place] [address] Performed By: #### 2 4362-6 ####[facility] [id number] [place] [address] [place] Potassium [Moles/Vol] 4.3 mmol/L Normal 3.7-5.1 [facility] Comment on above: Order Comment: Speci men Type: BLOOD SPECIMENOrdering Facility: [facility] Address: [address] [place] [address] Performed By: #### 2 4362-6 ####[facility] [id number] [place] [address] [place] Sodium [Moles/Vol] 134 mmol/L Low 136-144 [facility] Comment on above: Order Comment: Speci men Type: BLOOD SPECIMENOrdering Facility: [facility] Address: [address] [place] [address] Performed By: #### 2 4362-6 ####[facility] [id number] [place] [address] [place] Urea nitrogen [Mass/Vol] 14 mg/dL Normal 9-24 [facility] Comment on above: Order Comment: Speci men Type: BLOOD SPECIMENOrdering Facility: [facility] Address: [facility] [place] [address] Performed By: #### 2 4362-6 ####[facility] [id number] [place] [address] [place] Lower Ext Art Exam w/ Exerci bijan 11-06-2024 Lower Ext Art Exam w/ Exercise [facility] [address] [place] [address] Lower Ext Art Exam w/ Exercise 11/06/24 0803 MR#: [id number] Acct: [id number] Name: JORGE A RIVERA Rep #: [id number] : 1960 64 From: Damon Melendrez MD Attending Dr: BIANCA Garcia Status: REG CLI Ordering Dr: Jodee Mitchell Date: 11/06/24 Location: CVS Sex: M C Admitted: Reason For Study: PVD Procedure A bilateral lower extremity continuous wave Doppler with analog waveform analysis,segmental pressures,and ankle brachial indexes with exercise. Left Segmental Pressures Left brachial= 146mmHg. Left low thigh = 168mmHg. Left calf = 137mmHg. Left posterior tibial artery = 134mmHg. Left dorsalis pedis artery = 136mmHg. Left digit = 90 mmHg. The left dorsalis pedis waveforms are triphasic. The left posterior tibial artery waveforms are triphasic. Right Segmental Pressures Right brachial= 140mmHg. Right posterior tibial artery = 165mmHg. Right dorsalis pedis artery = 137mmHg. Right digit = 117 mmHg. The right dorsalis pedis waveforms are triphasic. The right posterior tibial artery waveforms are triphasic. Indices The right ankle brachial index by the dorsalis pedis is 0.94. The right ankle brachial index by the posterior tibial artery is 1.13. The right ankle brachial index by the posterior tibial artery post exercise is 1.03. The right digital-brachial index is 0.80. The left ankle brachial index by the dorsalis pedis is 0.93. The left ankle brachial index by the posterior tibial artery is 0.92. The left dorsalis pedis index post exercise is 0.91. The left digital-brachial index is 0.62. VL/Lower Ext Art Exam w/ Exercise Interpretation Summary Right GASPER 1.13, normal. TBI and Doppler/PVR waveforms of the right leg normal at rest. Right lower extremity exhibits normal response to exercise. Left GASPER 0.93, mild arterial insufficiency. Doppler/PVR waveforms and segmental pressures reveal distal SFA/popliteal disease Left lower extremity with no significant change in response to exercise. Ordering Physician: Jodee Mitchell Referring Physician: Jeferson Coffey M.D. Performed By: Gen Andrade RVT and Student 11/09/24 1345 Date Damon Melendrez MD CC: BIANCA Garcia; Dr. Jeferson Coffey MD Date Dictated: 11/06/24 0803 Date Transcribed: 11/09/24 134 Drop Wirer: Signed Normal [facility] MR/BMS.Kristi 10-08-2024 MR/BMS.BVS [facility] [address] [place] [address] OFFICE VISIT Date of Service: 10/08/24 MR#: [id number] Acct: [id number] Name: JORGE A RIVERA Rep #: [id number] : 1960 Provider: BIANCA Garcia Age/Sex: 64/M Location: [facility] Status: Signed Intake Vital Signs 04/24/24 14:43 10/08/24 09:43 Height 5 ft 10 in Weight: 146 lb BP 156/76 H Blood Pressure Location Lt brachial Position Sitting Respiration 15 Pulse 70 Pulse Source Monitor Temp 98.4 F Temp Source Temporal Pulse Oximetry (%) 96 Oxygen Delivery Method room air Intake Visit Reasons: Peripheral vascular disease Chief Complaint: establish care Is patient in pain?: No Allergies ibuprofen (From Advil) Adverse Reaction (Intermediate, Verified 10/08/24 09:45) SOB Medications ???Medication ???Instructions ???Recorded ???Confirmed ???Type aspirin 81 mg tablet,delayed 81 mg PO QDAY heart 11/29/17 10/08/24 History release (Adult Aspirin Regimen) coenzyme Q10 100 mg capsule (Co 100 mg PO QDAY vitamin 11/29/17 10/08/24 History Q-10) multivitamin 1 tab PO QDAY vitamin 11/29/17 10/08/24 History omega-3 fatty acids 1,000 mg 1,000 mg PO QDAY heart health 11/29/17 10/08/24 History capsule (Fish Oil Concentrate) atenolol 25 mg tablet 25 mg PO QDAY #90 tabs 12/31/23 10/08/24 Rx atorvastatin 10 mg tablet See Rx Instructions .Route 03/30/24 10/08/24 Rx .COMPLEX #45 tabs sodium bicarbonate 325 mg tablet 650 mg PO TID PRN 04/24/24 10/08/24 History lisinopril 10 mg tablet See Rx Instructions .Route 09/15/24 10/08/24 Rx .COMPLEX #90 tabs albuterol sulfate 90 mcg/actuation 2 puff inhalation Q6H PRN 10/08/24 10/08/24 History aerosol inhaler Have you fallen in the past year?: No PFSH Medical History History of SIADH Carotid bruit Essential hypertension COPD (chronic obstructive pulmonary disease) Hyperlipidemia Hypertension Atherosclerotic heart disease of [place] coronary artery without angina pectoris Surgical History History of coronary artery bypass surgery ( 01/11/10) History of hand surgery History of tonsillectomy History of left heart catheterization Family History Father CAD (coronary artery disease) S/P CABG (coronary artery bypass graft) Mother CAD (coronary artery disease) Hypertension Kidney disease Brother CAD (coronary artery disease) S/P CABG (coronary artery bypass graft) Sister S/P CABG (coronary artery bypass graft) CAD (coronary artery disease) Diabetes Social History household members: spouse Smoking Status: Former smoker quit date: 10/28/09 pack-years: 30 alcohol intake: never substance use type: does not use caffeine: Yes Type: coffee Number of servings: 2 HPI HPI HPI: JORGE A RIVERA, is a 64 M who presents to the office today for evaluation of PAD as referred by his PCP Dr. Coffey. He recently had a CT Abd/Pelvis which incidentally identified atherosclerosis of his aortoiliac, mesenteric, and renal vessels. He reports that with prolonged working days he will get some aching in his legs. Otherwise, he does not typically have any consistent aching, cramping, burning pain with activity. He denies any rest/nocturnal pain or wounds. He denies any history of prior peripheral vascular interventions. He does report a strong family history of CAD and he himself had CABGx3 in 2009. He does smoke, he has quit in the past but currently smokes <10 cigarettes per day. He is not diabetic. He does not endorse any abdominal pain. He has hypertension, but generally well controlled on a single agent. No history of CKD. No history of CVA/TIA. ROS General General: No weight change, appetite, fatigue, colon cancer, breast cancer or weakness HEENT HEENT: No difficulty swallowing, eye injury, eye surgery, swollen glands or hoarseness Endo Endocrine: No thyroid disease, diabetes mellitus, thyroid cancer, Hair loss, heat intolerance or cold intolerance Skin Skin: No rash or changing moles Musc Musculoskeletal: Yes back problems and arthritis; No rheumatoid arthritis, gout or joint pain Cardio Cardiovascular: Yes heart disease and high blood pressure; No murmur, pacemaker, atrial fibrillation, heart attack, heart stent, palpitations, shortness of breat with exertion or chest pain Psych Psychiatric: No depression, anxiety or hearing voices Resp Respiratory: No shortness of breath, No sleep apnea, Yes cough, Yes COPD, No asthma, Yes emphysema and No wheezing Gastro Gastrointestinal: No abdominal pain, No nausea or vomiting, No diarrhea, No constipation, N (more content not included)... [facility] Alfredito 09-02-2024 [facility] Telephone ([facility]) MIGUELJORGE A LEONARD ([id number]) 1960 M Date Time Provider Department 09/02/24 RAMON SAMUEL [facility] During your visit today, we recorded the following information about you: Ramon Samuel MD 09/02/2024 10:[address] scan abdomen and pelvis done on August 28, 2024 Lower thorax there is partially calcified right medial posterior pleural clinic with increased calcifications since 2020 similar thickness in maximum thickness posteriorly roughly 1.4 cm AP it was 1.2 cm Also mild largely noncalcified pleural plaques with a few punctuate calcification in the left anterior and lateral lung base also similar to prior exam. The similar size and configuration and increasing calcification argue against mesothelioma. Similar bullous change near the heart and near the left lateral pleura. Similar dense coronary artery calcification and suspected stents. Overall normal heart size but the left atrial appendage is not fully included. Lung bases are clear. No significant pericardial effusion Allergies As of Date: 09/02/2024 (No Known Allergies) Date Reviewed: 08/13/2024 Reviewed by: Marj Dove MA - Fully Assessed Prescriptions as of 09/02/2024 - lisinopril (ZESTRIL) 10 mg tablet Take 10 mg by mouth once daily. - atorvastatin (LIPITOR) 10 mg tablet Take 5 mg by mouth once daily. - atenolol (TENORMIN) 25 mg tablet Take 25 mg by mouth once daily. - coenzyme Q10 (H2Q COQ10) 200 mg/gram powd Take by mouth once daily. - aspirin, enteric coated (ASPIRIN, ENTERIC COATED) 81 mg EC tablet Take 81 mg by mouth once daily. - Minburn-3 Fatty Acids-Vitamin E (FISH OIL) 1,000 mg cap Take 1 capsule by mouth once daily. - Multivitamin capsule Take 1 capsule by mouth once daily. Problem List As Of Date 09/02/2024 Noted Resolved Screening for colon cancer [Z12.11] 03/10/2015 SIADH (syndrome of inappropriate ADH production*02/19/2024 Hyponatremia [E87.1] 02/19/2024 Essential hypertension [I10] 02/19/2024 Acute bronchospasm [J98.01] 03/30/2024 Carotid bruit [R09.89] 04/24/2011 Chronic obstructive pulmonary disease (HCC) [J4*03/30/2024 Atherosclerosis of coronary artery bypass graft*04/24/2011 History of cardiac catheterization [Z98.890] 03/30/2024 History of coronary artery bypass surgery [Z95.*03/30/2024 History of endocrine disorder [Z86.39] 01/08/2024 Hyperlipidemia [E78.5] 04/24/2011 Influenza [J11.1] 12/29/2023 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 Placed in Dr. Samuel's office to view. Allergies As of Date: 09/01/2024 (No Known Allergies) Date Reviewed: 08/13/2024 Reviewed by: Marj Dove MA - Fully Assessed Reason for Visit: Patient Update [1234] Prescriptions as of 09/01/2024 - lisinopril (ZESTRIL) 10 mg tablet Take 10 mg by mouth once daily. - atorvastatin (LIPITOR) 10 mg tablet Take 5 mg by mouth once daily. - atenolol (TENORMIN) 25 mg tablet Take 25 mg by mouth once daily. - coenzyme Q10 (H2Q COQ10) 200 mg/gram powd Take by mouth once daily. - aspirin, enteric coated (ASPIRIN, ENTERIC COATED) 81 mg EC tablet Take 81 mg by mouth once daily. - Minburn-3 Fatty Acids-Vitamin E (FISH OIL) 1,000 mg cap Take 1 capsule by mouth once daily. - Multivitamin capsule Take 1 capsule by mouth once daily. Problem List As Of Date 09/01/2024 Noted Resolved Screening for colon cancer [Z12.11] 03/10/2015 SIADH (syndrome of inappropriate ADH production*02/19/2024 Hyponatremia [E87.1] 02/19/2024 Essential hypertension [I10] 02/19/2024 Acute bronchospasm [J98.01] 03/30/2024 Carotid bruit [R09.89] 04/24/2011 Chronic obstructive pulmonary disease (HCC) [J4*03/30/2024 Atherosclerosis of coronary artery bypass graft*04/24/2011 History of cardiac catheterization [Z98.890] 03/30/2024 History of coronary artery bypass surgery [Z95.*03/30/2024 History of endocrine disorder [Z86.39] 01/08/2024 Hyperlipidemia [E78.5] 04/24/2011 Influenza [J11.1] 12/29/2023 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 Jeferson Coffey MD Status: REG CLI Study: Abdomen/Pelvis WITH Contrast Date of Exam: 11/20 Exam# [id number] Ordering Dr: Jeferson Coffey MD [id number] EXAM: CT ABDOMEN AND PELVIS WITH INTRAVENOUS CONTRAST CLINICAL INDICATION: Weight Loss - SIADH (syndrome of inappropriate ADH production) TECHNIQUE: Helically acquired images were obtained of the abdomen and pelvis with intravenous contrast. This CT exam was performed using one or more of the following dose reduction techniques: automated exposure control, adjustment of the mA and/or kV according to patient size, and/or use of iterative reconstruction technique. CONTRAST: Oral and amp; IV Readi-CAT and amp; 100mL Isovue-300 RADIATION DOSE: CTDIvol = 10.68 mGy, DLP = 609.79 mGy-cm COMPARISON: Enhanced chest CT November 03, 2019 FINDINGS: LOWER THORAX: . There is partially calcified right medial-posterior pleural plaque with increased calcification since 2019 but similar thickness, maximum thickness posteriorly roughly 1.4 cm AP, it was 1.2 cm. Also mild largely noncalcified pleural plaque with a few punctate calcifications in the left anterior and lateral lung base, also similar to prior exam. The similar size and configuration and increasing calcification argue against mesothelioma. Similar bullous change near the heart and near the left lateral pleura. Similar dense coronary artery calcifications and suspected stents. Overall normal heart size but the left atrial appendage is not fully included. Lung bases are clear. No significant pericardial effusion. ABDOMEN: LIVER: Unremarkable. Homogeneous. No focal mass. GALLBLADDER AND BILE DUCTS: Unremarkable. No calcified gallstones. No gallbladder distention or wall edema. No intra- or extrahepatic biliary ductal dilation. PANCREAS: Unremarkable. No focal cystic or solid mass. SPLEEN: Unremarkable. Normal size without focal cystic or solid mass. ADRENALS: Similar nodular contour of the left adrenal gland compared to 2020. KIDNEYS AND URETERS: The kidneys enhance symmetrically, symmetric size. Small simple cyst 1.8 cm in the upper pole left kidney, similar to 2020. Normal renal size and position. No hydronephrosis. STOMACH AND BOWEL: Oral contrast most distal small bowel loops, no obstruction. There is moderate stool in most of the proximal half of the colon, mild gas and minimal stool in the distal colon. Thick-walled incompletely distended or narrowed appearance of a segment of mid sigmoid. PELVIS: APPENDIX: No evidence of acute appendicitis. BLADDER: The bladder is almost collapsed, not well evaluated. REPRODUCTIVE: Fullness and ill-defined margins of the posterior right prostate margin, the prostate is 5.2 cm x 2.8 cm x 4.8 cm. ABDOMEN and PELVIS: INTRAPERITONEAL SPACE: Unremarkable. No ascites or other fluid collection. No free air. BONES/JOINTS: Bilateral L5 pars defects and mild grade 1 anterolisthesis of L5 with respect to S1 with marked L5-S1 disc space narrowing and slight vacuum disc. No significant spinal stenosis but at least moderate apparent L4-5 and L5-S1 neural foraminal stenosis. Some of the median sternotomy wires are included. SOFT TISSUES: Unremarkable. No discrete abdominal or pelvic wall hernia. VASCULATURE: Heavily calcified aortoiliac vessels and arterial branches. High-grade apparent stenosis at the origins of both common iliac arteries, distal right common iliac artery, and apparent severe stenosis of right external iliac and right common femoral arteries left common iliac artery bifurcation and left common femoral artery. There is mild opacification of both SFAs and high-grade stenosis at both SFA origins. Both deep femoral arteries are patent. Severely calcified origins and proximal renal arteries, greater on the right, apparent high-grade stenosis of at least the right renal artery origin. Calcifications and enpn-vnvgk-[id number] stenosis at the origin of the celiac axis and mild narrowing of the origin of the SMA. Suspected high-grade stenosis at the origin of the JCARLOS. LYMPH NODES: Unremarkable. No enlarged lymph nodes. CT/Abdomen/Pelvis WITH Contrast IMPRESSION: Indeterminate findings. Including likely collapsed but possibly thick-walled segment of sigmoid colon. Asymmetric prostate with mild fullness of the right posterior gland with ill-defined margins. RECOMMENDATIONS for the indeterminate findings: 1. Colonoscopy screening if not recently performed. 2. Consider prostate screening. Advanced atherosclerotic disease with multifocal arteri (more content not included)... Normal [facility] 08-28-2024 PARAG Telephone ([facility]) JORGE A RIVERA ([id number]) 1960 Date Time Provider Department 08/28/24 HAIR ADAMES [facility] During your visit today, we recorded the following information about you: Ivory Hunter 08/28/2024 3:[address] Fong office needing to know if the Patient can have a CT with contrast please advise! If they dont answer you may also fax to them at [phone]. Mercy Worthy RN 08/28/2024 3:48 PM Signed Routing to Hair Adames to advise. Hair Adames, PEYTON.FIREBOAT OPERATOR 08/28/2024 3:49 PM Signed He may have CT without renal concern or need for special hydration Mercy Worthy RN 08/28/2024 4:01 PM Signed Faxed to Dr. Coffey's office per request Allergies As of Date: 08/28/2024 (No Known Allergies) Date Reviewed: 08/13/2024 Reviewed by: Marj Dove MA - Fully Assessed Reason for Visit: ct questions [Other] Prescriptions as of 08/28/2024 - lisinopril (ZESTRIL) 10 mg tablet Take 10 mg by mouth once daily. - atorvastatin (LIPITOR) 10 mg tablet Take 5 mg by mouth once daily. - atenolol (TENORMIN) 25 mg tablet Take 25 mg by mouth once daily. - coenzyme Q10 (H2Q COQ10) 200 mg/gram powd Take by mouth once daily. - aspirin, enteric coated (ASPIRIN, ENTERIC COATED) 81 mg EC tablet Take 81 mg by mouth once daily. - Minburn-3 Fatty Acids-Vitamin E (FISH OIL) 1,000 mg cap Take 1 capsule by mouth once daily. - Multivitamin capsule Take 1 capsule by mouth once daily. Problem List As Of Date 08/28/2024 Noted Resolved Screening for colon cancer [Z12.11] 03/10/2015 SIADH (syndrome of inappropriate ADH production*02/19/2024 Hyponatremia [E87.1] 02/19/2024 Essential hypertension [I10] 02/19/2024 Acute bronchospasm [J98.01] 03/30/2024 Carotid bruit [R09.89] 04/24/2011 Chronic obstructive pulmonary disease (HCC) [J4*03/30/2024 Atherosclerosis of coronary artery bypass graft*04/24/2011 History of cardiac catheterization [Z98.890] 03/30/2024 History of coronary artery bypass surgery [Z95.*03/30/2024 History of endocrine disorder [Z86.39] 01/08/2024 Hyperlipidemia [E78.5] 04/24/2011 Influenza [J11.1] 12/29/2023 Osteoarthritis of hand [M19.049] 01/13/2016 Encounter Status:Closed by HAIR ADAMES on 08/28/24 Normal [facility] CREATININE FINGERSTICKon CREATININE WB < 1.0 Normal 0.70-1.30 [facility] Comment on above: Performed By: #### L 9100.0200 #### [facility] [address] [place], [place], [address] EGFR WB > 60.0000 Normal >60 [facility] Comment on above: Performed By: #### L 9100.0200 #### [facility] [address] 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 All information in this note has been verified. Data or information that hasn't changed was retained from previous notes and the rest was revised or updated where relevant. 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 PMH: HTN, COPD, CAD s/p CABG, OA and hyperlipidemia. Kidney function on most recent labs is normal Last seen by Dr Grimes 02/19/24. 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 Very active especially out doors Drinking 50-60oz water per day- 12 oz ot Gatorade daily when he's outside. Has 2 cups of coffee Has been trying to be careful- trying to take less water and coffee with him to work now Problem List Reviewed PAST MEDICAL HISTORY Diagnosis Date CAD (coronary artery disease) Chronic obstructive pulmonary disease (COPD) (HCC) Essential hypertension 02/19/2024 Current Outpatient Medications on File Prior to Visit Medication Sig sodium chloride soluble tablet 1 g Take 2 tablets by mouth three times a day. lisinopril (ZESTRIL) 10 mg tablet Take 10 mg by mouth once daily. atorvastatin (LIPITOR) 10 mg tablet Take 5 mg by mouth once daily. atenolol (TENORMIN) 25 mg tablet Take 25 mg by mouth once daily. coenzyme Q10 (H2Q COQ10) 200 mg/gram powd Take by mouth once daily. aspirin, enteric coated (ASPIRIN, ENTERIC COATED) 81 mg EC tablet Take 81 mg by mouth once daily. Minburn-3 Fatty Acids-Vitamin E (FISH OIL) 1,000 mg cap Take 1 capsule by mouth once daily. Multivitamin capsule Take 1 capsule by mouth once daily. No current facility-administered medications on file prior to visit. REVIEW OF SYSTEMS: Cardiovascular: denies chest pain or pressure, palpitations, dizziness, lightheadedness. Denies ALBERT Denies edema Respiratory: denies cough Genitourinary: denies frequency, pink or bloody urine or dysuria. Has 1 episodes of nocturia per night Does feel they empty bladder fully. Psychiatric: denies depression or anxiety. Reports energy level is much better PHYSICAL EXAM BP: BP 173/87 Pulse 80 Wt 64.9 kg (143 lb) BMI 22.03 kg/m? BP - standardized method Pulse 1 BP #1: 168/85 Pulse #1: 80 beats/min 2 BP #2 : 172/88 Pulse #2 : 80 beats/min 3 BP #3 : 179/88 Pulse #3 : 80 beats/min Average Average BP: 173/87 Average Pulse: 80 beats/min Orthostatic vitals Supine Sitting Standing BP cuff location BP cuff size Comments for BP values First BP (right) First BP (left) Constitutional: No acute distress, Responsive, Thin, and Well-nourished Cardiovascular:No peripheral edema Regular rate and rhythm, normal S1 and S2, no murmurs Respiratory: Normal respiratory effort. Extremities: No peripheral edema Neurological: Alert and oriented x3. Psychiatric: Alert and oriented x self, place, time, and setting Normal mood/affect Talkative and very friendly, invested in his health Diagnostic tests reviewed for today's visit Labs: Latest Ref Rng 04/03/2024 05/11/2024 08/06/2024 08/12/2024 RENAL KIDNEY STONE FLOWSHEET EGFR, All Other >=60 mL/min/1.73m? 104 101 101 99 Creatinine 0.73 - 1.22 mg/dL 0.66 (L) 0.72 (L) 0.72 (L) 0.77 BUN 9 - 24 mg/dL 12 11 11 15 Sodium 136 - 144 mmol/L 128 (L) 132 (L) 126 (L) 131 (L) Potassium 3.7 - 5.1 mmol/L 4.2 4.2 4.1 4.1 Chloride 98 - 107 mmol/L 94 (L) 97 (L) 91 (L) 97 (L) CO2 22 - 30 mmol/L 24 29 25 24 Glucose 74 - 99 mg/dL 122 (H) 96 110 (H) 86 Calcium 8.5 - 10.2 mg/dL 9.4 9.1 9.4 9.7 Phosphorus 2.7 - 4.8 mg/dL 3.3 3.0 3.1 3.5 Albumin 3.9 - 4.9 g/dL 4.2 4.2 4.4 4.5 WBC 3.70 - 11.00 k/uL HGB 13.0 - 17.0 g/dL HCT 39.0 - 51.0 % PLT 150 - 400 k/uL Uric Acid 4.0 - 8.1 mg/dL ASSESSMENT: Pt is an 64 year old male being seen today in FU for 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 PMH: HTN, COPD, CAD s/p CABG, OA and hyperlipidemia. Kidney function on most recent labs is normal Hyponatremia -since 2019 -baseline serum sodium around 1 (more content not included)... Normal [facility] Renal function 2000 panelon 08-12-2024 Albumin [Mass/Vol] 4.5 g/dL Normal 3.9-4.9 [facility] Comment on above: Order Comment: Gm arroyo Type: BLOOD SPECIMENOrdering Facility: [facility] Address: [address] [place] [address] Performed By: #### 2 4362-6 ####[facility] NIKHIL MILLTOWNCLIA [id number] [place] [address] [place] Anion gap [Moles/Vol] 10 mmol/L Normal 8-15 [facility] Comment on above: Order Comment: Gm arroyo Type: BLOOD SPECIMENOrdering Facility: [facility] Address: [address] [place] [address] Performed By: #### 2 4362-6 ####[facility] MILLTOWNCLIA [id number] [place] [address] [place] Calcium [Mass/Vol] 9.7 mg/dL Normal 8.5-10.2 [facility] Comment on above: Order Comment: Gm arroyo Type: BLOOD SPECIMENOrdering Facility: [facility] Address: [address] [place] [address] Performed By: #### 2 4362-6 ####[facility] NIKHIL MILLTOWNCLIA [id number] [place] [address] [place] Chloride [Moles/Vol] 97 mmol/L Low 98-107 [facility] Comment on above: Order Comment: Speci men Type: BLOOD SPECIMENOrdering Facility: [facility] Address: [address] [place] [address] Performed By: #### 2 4362-6 ####[facility] [id number] [place] [address] [place] CO2 [Moles/Vol] 24 mmol/L Normal 22-30 [facility] Comment on above: Order Comment: Speci men Type: BLOOD SPECIMENOrdering Facility: [facility] Address: [address] [place] [address] Performed By: #### 2 4362-6 ####[facility] [id number] [place] [address] [place] Creatinine [Mass/Vol] 0.77 mg/dL Normal 0.73-1.22 [facility] Comment on above: Order Comment: Speci men Type: BLOOD SPECIMENOrdering Facility: [facility] Address: [address] [place] [address] Performed By: #### 2 4362-6 ####[facility] [id number] [address] [facility] Creatinine and Glomerular filtration rate.predicted panel (S/P/Bld) 99 mL/min/1.73m??? Normal >=60 [facility] Comment on above: Order Comment: Speci men Type: BLOOD SPECIMENOrdering Facility: [facility] Address: [address] [place] [address] Result Comment: Kitty mated Glomerular Filtration Rate (eGFR) is calculated using the 2020 CKD-EPI creatinine equation. This equation utilizes serum creatinine, sex, and age as parameters. The creatinine assay has traceable calibration to isotope dilution-mass spectrometry. Refer to KDIGO guidelines for clinical interpretation. In patients with unstable renal function, e.g. those with acute kidney injury, the eGFR may not accurately reflect actual GFR. Performed By: #### 2 4362-6 ####[facility] MILLTOWNCLIA [id number] [place] [address] [place] Glucose [Mass/Vol] 86 mg/dL Normal 74-99 [facility] Comment on above: Order Comment: Speci men Type: BLOOD SPECIMENOrdering Facility: [facility] Address: [address] [place] [address] Result Comment: The [place] Diabetes Association (ADA) provides guidance for cutoff values for fasting glucose and random glucose. The ADA defines fasting as no caloric intake for at least 8 hours. Fasting plasma glucose results between 100 to 125 mg/dL indicate increased risk for diabetes (prediabetes). Fasting plasma glucose results greater than or equal to 126 mg/dL meet the criteria for diagnosis of diabetes. In the absence of unequivocal hyperglycemia, results should be confirmed by repeat testing. In a patient with classic symptoms of hyperglycemia or hyperglycemic crisis, random plasma glucose results greater than or equal to 200 mg/dL meet the criteria for diagnosis of diabetes. Reference: Standards of Medical Care in Diabetes 2016, [place] [employer] Association. Diabetes Care. 2016.39(Suppl 1). Performed By: #### 2 4362-6 ####[facility] DEMITOWNCLIA [id number] [place] [address] [place] Phosphate [Mass/Vol] 3.5 mg/dL Normal 2.7-4.8 [facility] Comment on above: Order Comment: Speci men Type: BLOOD SPECIMENOrdering Facility: [facility] Address: [address] [place] [address] Performed By: #### 2 4362-6 ####[facility] MILLWNCLIA [id number] [place] [address] [place] Potassium [Moles/Vol] 4.1 mmol/L Normal 3.7-5.1 [facility] Comment on above: Order Comment: Speci men Type: BLOOD SPECIMENOrdering Facility: [facility] Address: [address] [place], [place] [address] Performed By: #### 2 4362-6 ####[facility] DEMIBLACK RIVER FALLSNCLIA [id number] [place] [address] [place] Sodium [Moles/Vol] 131 mmol/L Low 136-144 [facility] Comment on above: Order Comment: Speci men Type: BLOOD SPECIMENOrdering Facility: [facility] Address: [address] [place] [address] Performed By: #### 2 4362-6 ####[facility]ITAL[facility]CL[facility] [id number] [address] [place] Urea nitrogen [Mass/Vol] 15 mg/dL Normal 9-24 [facility] Comment on above: Order Comment: Speci men Type: BLOOD SPECIMENOrdering Facility: [facility] Address: [address] [place] [address] Performed By: #### 2 4362-6 ####[facility]IT[facility] [id number] [address] [place] CNPSue 08-06-2024 CNPN Telephone (MIDVAV) JORGE A RIVERA ([id number]) 1960 M Date Time Provider Department 08/06/24 RUBIO GRIMES [facility] During your visit today, we recorded the following information about you: Rubio Grimes MD 08/06/2024 12:31 PM Signed Discussed with Jorge A that his Serum Sodium has dropped down to 126; has been asymptomatic though. Patient claims that he has been taking Sodium Chloride pills 2 gm TID. However he has been drinking around 60 oz of water/fluids a day. Advised to restrict fluid intake to 40-48 oz and repeat renal panel a day before his next appointment on 08/13 Allergies As of Date: 08/06/2024 (No Known Allergies) Date Reviewed: 04/07/2024 Reviewed by: Sarina Lino RPFT - Fully Assessed Primary Visit Diagnosis:SIADH (syndrome of inappropriate ADH production) ([facility]) [E22.2] Order(s):RENAL FUNCTION PANEL [SQRFP] Order #: [id number] FUTURE Prescriptions as of 08/06/2024 - lisinopril (ZESTRIL) 10 mg tablet Take 10 mg by mouth once daily. - atorvastatin (LIPITOR) 10 mg tablet Take 5 mg by mouth once daily. - atenolol (TENORMIN) 25 mg tablet Take 25 mg by mouth once daily. - coenzyme Q10 (H2Q COQ10) 200 mg/gram powd Take by mouth once daily. - aspirin, enteric coated (ASPIRIN, ENTERIC COATED) 81 mg EC tablet Take 81 mg by mouth once daily. - Minburn-3 Fatty Acids-Vitamin E (FISH OIL) 1,000 mg cap Take 1 capsule by mouth once daily. - Multivitamin capsule Take 1 capsule by mouth once daily. Problem List As Of Date 08/06/2024 Noted Resolved Screening for colon cancer [Z12.11] 03/10/2015 SIADH (syndrome of inappropriate ADH production*02/19/2024 Hyponatremia [E87.1] 02/19/2024 Essential hypertension [I10] 02/19/2024 Acute bronchospasm [J98.01] 03/30/2024 Carotid bruit [R09.89] 04/24/2011 Chronic obstructive pulmonary disease (HCC) [J4*03/30/2024 Atherosclerosis of coronary artery bypass graft*04/24/2011 History of cardiac catheterization [Z98.890] 03/30/2024 History of coronary artery bypass surgery [Z95.*03/30/2024 History of endocrine disorder [Z86.39] 01/08/2024 Hyperlipidemia [E78.5] 04/24/2011 Influenza [J11.1] 12/29/2023 Osteoarthritis of hand [M19.049] 01/13/2016 Encounter Status:Closed by RUBIO GRIMES on 08/06/24 Normal [facility] Renal function 2000 panelon 08-06-2024 Albumin [Mass/Vol] 4.4 g/dL Normal 3.9-4.9 [facility] Comment on above: Order Comment: Speci men Type: BLOOD SPECIMENOrdering Facility: [facility] Address: [address] [place] [address] Performed By: #### 2 4362-6 ####[facility] MILLWNCLIA [id number] [place] [address] [place] Anion gap [Moles/Vol] 10 mmol/L Normal 8-15 [facility] Comment on above: Order Comment: Speci men Type: BLOOD SPECIMENOrdering Facility: [facility] Address: [address] [place] [address] Performed By: #### 2 4362-6 ####[facility]ITALNCLIA [id number] [place] [address] [place] Calcium [Mass/Vol] 9.4 mg/dL Normal 8.5-10.2 [facility] Comment on above: Order Comment: Speci men Type: BLOOD SPECIMENOrdering Facility: [facility] Address: [address] [place] [address] Performed By: #### 2 4362-6 ####[facility] [id number] [place] [address] [place] Chloride [Moles/Vol] 91 mmol/L Low 98-107 [facility] Comment on above: Order Comment: Speci men Type: BLOOD SPECIMENOrdering Facility: [facility] Address: [address] [place] [address] Performed By: #### 2 4362-6 ####[facility] [id number] [place] [address] [place] CO2 [Moles/Vol] 25 mmol/L Normal 22-30 [facility] Comment on above: Order Comment: Speci men Type: BLOOD SPECIMENOrdering Facility: [facility] Address: [address] [place] [address] Performed By: #### 2 4362-6 ####[facility]ITALALEJANDROPR[facility] [id number] [place] [address] [place] Creatinine [Mass/Vol] 0.72 mg/dL Low 0.73-1.22 [facility] Comment on above: Order Comment: Speci men Type: BLOOD SPECIMENOrdering Facility: [facility] Address: [address] [place] [address] Performed By: #### 2 4362-6 ####[facility]ITALNCLI [id number] [place] [address] [place] Creatinine and Glomerular filtration rate.predicted panel (S/P/Bld) 101 mL/min/1.73m??? Normal >=60 [facility] Comment on above: Order Comment: Simonei men Type: BLOOD SPECIMENOrdering Facility: [facility] Address: [address] [place] [address] Result Comment: Kitty mated Glomerular Filtration Rate (eGFR) is calculated using the 2020 CKD-EPI creatinine equation. This equation utilizes serum creatinine, sex, and age as parameters. The creatinine assay has traceable calibration to isotope dilution-mass spectrometry. Refer to KDIGO guidelines for clinical interpretation. In patients with unstable renal function, e.g. those with acute kidney injury, the eGFR may not accurately reflect actual GFR. Performed By: #### 2 4362-6 ####[facility] [id number] [place] [address] [place] Glucose [Mass/Vol] 110 mg/dL High 74-99 [facility] Comment on above: Order Comment: Speci men Type: BLOOD SPECIMENOrdering Facility: [facility] Address: [address] [place] [address] Result Comment: The [place] Diabetes Association (ADA) provides guidance for cutoff values for fasting glucose and random glucose. The ADA defines fasting as no caloric intake for at least 8 hours. Fasting plasma glucose results between 100 to 125 mg/dL indicate increased risk for diabetes (prediabetes). Fasting plasma glucose results greater than or equal to 126 mg/dL meet the criteria for diagnosis of diabetes. In the absence of unequivocal hyperglycemia, results should be confirmed by repeat testing. In a patient with classic symptoms of hyperglycemia or hyperglycemic crisis, random plasma glucose results greater than or equal to 200 mg/dL meet the criteria for diagnosis of diabetes. Reference: Standards of Medical Care in Diabetes 2016, [place] Diabetes Association. Diabetes Care. 2016.39(Suppl 1). Performed By: #### 2 4362-6 ####[facility] MILLTOWNCLIA [id number] [place] [address] [place] Phosphate [Mass/Vol] 3.1 mg/dL Normal 2.7-4.8 [facility] Comment on above: Order Comment: Speci men Type: BLOOD SPECIMENOrdering Facility: [facility] Address: [address] [place] [address] Performed By: #### 2 4362-6 ####[facility] BEACHWMELIA [id number] [place] [address] [place] Potassium [Moles/Vol] 4.1 mmol/L Normal 3.7-5.1 [facility] Comment on above: Order Comment: Speci men Type: BLOOD SPECIMENOrdering Facility: [facility] Address: [address] [place] [address] Performed By: #### 2 4362-6 ####[facility] BEACHWNCLIA [id number] [place] [address] [place] Sodium [Moles/Vol] 126 mmol/L Low 136-144 [facility] Comment on above: Order Comment: Speci men Type: BLOOD SPECIMENOrdering Facility: [facility] Address: [address] [place] [address] Performed By: #### 2 4362-6 ####[facility] HOSPITALLIA [id number] [place] [address] [place] Urea nitrogen [Mass/Vol] 11 mg/dL Normal 9-24 [facility] Comment on above: Order Comment: Speci men Type: BLOOD SPECIMENOrdering Facility: [facility] Address: [address] [id number] Performed By: #### 2 4362-6 ####[facility] NIKHIL SIMMSBLACK RIVER FALLSCALVIN [id number] [address] CNOVon 05-21-2024 CNOV Office Visit (KIDMST ) JORGE A RIVERA ([id number]) 1960 M Date Time Provider Department 05/21/24 9:00 AM HAIR ADAMES During your visit today, we recorded the following information about you: Pulse Blood pressure Weight 71/minute 146/78 65 kg 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 PMH: HTN, COPD, CAD s/p CABG, OA and hyperlipidemia. Kidney function on most recent labs is normal Last seen by Dr Grimes 02/19/24 Since last visit feels BP elevated d/t increased sodium tablets. Does feel better since taking the salt tabs as he has more energy. He definitely sees a difference. 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 Very active especially out doors Drinking 50-60oz water per day- 12 oz ot Gatorade daily when he's outside. Has 2 cups of coffee Problem List Reviewed PAST MEDICAL HISTORY Diagnosis Date CAD (coronary artery disease) Chronic obstructive pulmonary disease (COPD) (HCC) Essential hypertension 02/19/2024 Current Outpatient Medications on File Prior to Visit Medication Sig sodium chloride soluble tablet 1 g Take 2 tablets by mouth three times a day. lisinopril (ZESTRIL) 10 mg tablet Take 10 mg by mouth once daily. atorvastatin (LIPITOR) 10 mg tablet Take 5 mg by mouth once daily. atenolol (TENORMIN) 25 mg tablet Take 25 mg by mouth once daily. coenzyme Q10 (H2Q COQ10) 200 mg/gram powd Take by mouth once daily. aspirin, enteric coated (ASPIRIN, ENTERIC COATED) 81 mg EC tablet Take 81 mg by mouth once daily. [place]-3 Fatty Acids-Vitamin E (FISH OIL) 1,000 mg cap Take 1 capsule by mouth once daily. Multivitamin capsule Take 1 capsule by mouth once daily. No current facility-administered medications on file prior to visit. REVIEW OF SYSTEMS: Cardiovascular: denies chest pain or pressure, palpitations, dizziness, lightheadedness. Denies ALBERT Denies edema Respiratory: denies cough Genitourinary: denies frequency, pink or bloody urine or dysuria. Has 1 episodes of nocturia per night Does feel they empty bladder fully. Psychiatric: denies depression or anxiety. Reports energy level is much better PHYSICAL EXAM BP: BP 146/78 Pulse 71 Wt 65 kg (143 lb 4.8 oz) BMI 22.07 kg/m? BP - standardized method Pulse 1 BP #1: 143/80 Pulse #1: 71 beats/min 2 BP #2 : 148/75 Pulse #2 : 71 beats/min 3 BP #3 : 148/81 Pulse #3 : 71 beats/min Average Average BP: 146/78 Average Pulse: 71 beats/min Orthostatic vitals Supine Sitting Standing BP cuff location BP cuff size Comments for BP values First BP (right) First BP (left) Constitutional: No acute distress, Responsive, Thin, and Well-nourished Cardiovascular:No peripheral edema Regular rate and rhythm, normal S1 and S2, no murmurs Respiratory: Normal respiratory effort. Extremities: No peripheral edema Neurological: Alert and oriented x3. Psychiatric: Alert and oriented x self, place, time, and setting Normal mood/affect Talkative and very friendly, invested in his health Diagnostic tests reviewed for today's visit Labs: Latest Ref Rng 02/19/2024 03/20/2024 04/03/2024 05/11/2024 RENAL KIDNEY STONE FLOWSHEET EGFR, All Other >=60 mL/min/1.73m? 99 102 104 101 Creatinine 0.73 - 1.22 mg/dL 0.79 0.72 (L) 0.66 (L) 0.72 (L) BUN 9 - 24 mg/dL 13 13 12 11 Sodium 136 - 144 mmol/L 128 (L) 128 (L) 128 (L) 132 (L) Potassium 3.7 - 5.1 mmol/L 4.6 4.2 4.2 4.2 Chloride 98 - 107 mmol/L 91 (L) 93 (L) 94 (L) 97 (L) CO2 22 - 30 mmol/L 29 29 24 29 Glucose 74 - 99 mg/dL 95 138 (H) 122 (H) 96 Calcium 8.5 - 10.2 mg/dL 9.7 9.6 9.4 9.1 Phosphorus 2.7 - 4.8 mg/dL 3.4 3.6 3.3 3.0 Albumin 3.9 - 4.9 g/dL 4.6 4.3 4.2 4.2 WBC 3.70 - 11.00 k/uL 8.75 HGB 13.0 - 17.0 g/dL 14.1 HCT 39.0 - 51.0 % 40.9 PLT 150 - 400 k/uL 238 Uric Acid 4.0 - 8.1 mg/dL 3.4 (L) ASSESSMENT: Pt is an 64 year old male being seen today in FU for 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 PMH: HTN, COPD, CAD s/p CABG, OA and hyperlipidemia. Kidney function on most recent labs is normal Hyponatremia -since 2019 -baseline serum sodium around 128 -Na+- 132 improved although still slightly below goal On sodium chloride 2mg tid Continue fluid restrictions to 1.5L -TSH and cortisol wnl in January 2024 -urine osmolality 483 wnl n January 2024 -urine sodium 49 wnl in January 2024 -Chest xray with pleural plaques and referred to pulmonology (more content not included)... Normal [facility] Renal function 2000 panelon 05-11-2024 Albumin [Mass/Vol] 4.2 g/dL Normal 3.9-4.9 [facility] Comment on above: Order Comment: Speci men Type: BLOOD SPECIMENOrdering Facility: [facility] Address: [address] [place] [address] Performed By: #### 2 4362-6 ####[facility] BEACHWNCLIA [id number] [place] [address] [place] Anion gap [Moles/Vol] 6 mmol/L Low 8-15 [facility] Comment on above: Order Comment: Speci men Type: BLOOD SPECIMENOrdering Facility: [facility] Address: [address] [place] [address] Performed By: #### 2 4362-6 ####[facility]ITALNCLIA [id number] [place] [address] [place] Calcium [Mass/Vol] 9.1 mg/dL Normal 8.5-10.2 [facility] Comment on above: Order Comment: Speci men Type: BLOOD SPECIMENOrdering Facility: [facility] Address: [address] [place] [address] Performed By: #### 2 4362-6 ####[facility]ITALNCLIA [id number] [place] [address] [place] Chloride [Moles/Vol] 97 mmol/L Low 98-107 [facility] Comment on above: Order Comment: Speci men Type: BLOOD SPECIMENOrdering Facility: [facility] Address: [address] [place] [address] Performed By: #### 2 4362-6 ####[facility]ITALNCLIA [id number] [place] [address] [place] CO2 [Moles/Vol] 29 mmol/L Normal 22-30 [facility] Comment on above: Order Comment: Speci men Type: BLOOD SPECIMENOrdering Facility: [facility] Address: [address] [place] [address] Performed By: #### 2 4362-6 ####[facility] [id number] [place] [address] [place] Creatinine [Mass/Vol] 0.72 mg/dL Low 0.73-1.22 [facility] Comment on above: Order Comment: Speci men Type: BLOOD SPECIMENOrdering Facility: [facility] Address: [address] [place] [address] Performed By: #### 2 4362-6 ####[facility]NC[facility] [id number] [place] [address] [place] Creatinine and Glomerular filtration rate.predicted panel (S/P/Bld) 101 mL/min/1.73m??? Normal >=60 [facility] Comment on above: Order Comment: Speci men Type: BLOOD SPECIMENOrdering Facility: [facility] Address: [address] [place] [address] Result Comment: Kitty mated Glomerular Filtration Rate (eGFR) is calculated using the 2020 CKD-EPI creatinine equation. This equation utilizes serum creatinine, sex, and age as parameters. The creatinine assay has traceable calibration to isotope dilution-mass spectrometry. Refer to KDIGO guidelines for clinical interpretation. In patients with unstable renal function, e.g. those with acute kidney injury, the eGFR may not accurately reflect actual GFR. Performed By: #### 2 4362-6 ####[facility] [id number] [place] [address] [place] Glucose [Mass/Vol] 96 mg/dL Normal 74-99 [facility] Comment on above: Order Comment: Speci men Type: BLOOD SPECIMENOrdering Facility: [facility] Address: [address] [place] [address] Result Comment: The [place] Diabetes Association (ADA) provides guidance for cutoff values for fasting glucose and random glucose. The ADA defines fasting as no caloric intake for at least 8 hours. Fasting plasma glucose results between 100 to 125 mg/dL indicate increased risk for diabetes (prediabetes). Fasting plasma glucose results greater than or equal to 126 mg/dL meet the criteria for diagnosis of diabetes. In the absence of unequivocal hyperglycemia, results should be confirmed by repeat testing. In a patient with classic symptoms of hyperglycemia or hyperglycemic crisis, random plasma glucose results greater than or equal to 200 mg/dL meet the criteria for diagnosis of diabetes. Reference: Standards of Medical Care in Diabetes 2016, [place] [employer] Association. Diabetes Care. 2016.39(Suppl 1). Performed By: #### 2 4362-6 ####[facility] HOSPITALLIA [id number] [place] [address] [place] Phosphate [Mass/Vol] 3.0 mg/dL Normal 2.7-4.8 [facility] Comment on above: Order Comment: Speci men Type: BLOOD SPECIMENOrdering Facility: [facility] Address: [address] [place] [address] Performed By: #### 2 4362-6 ####[facility] [id number] [place] [address] [place] Potassium [Moles/Vol] 4.2 mmol/L Normal 3.7-5.1 [facility] Comment on above: Order Comment: Speci men Type: BLOOD SPECIMENOrdering Facility: [facility] Address: [address] [place] [address] Performed By: #### 2 4362-6 ####[facility]OSPITALLIA [id number] [place] [address] [place] Sodium [Moles/Vol] 132 mmol/L Low 136-144 [facility] Comment on above: Order Comment: Speci men Type: BLOOD SPECIMENOrdering Facility: [facility] Address: [address] [id number] Performed By: #### 2 4362-6 ####[facility] HOSPITALLIA [id number] [place] [address] [place] Urea nitrogen [Mass/Vol] 11 mg/dL Normal 9-24 [facility] Comment on above: Order Comment: Speci men Type: BLOOD SPECIMENOrdering Facility: [facility] Address: [address] [id number] Performed By: #### 2 4362-6 ####[facility] [id number] [place] [id number] [place] Cardiology Visit Reporton Cardiology Visit Report [facility] [address] [place] [address] OFFICE VISIT Date of Service: 04/24/24 MR#: [id number] Acct: [id number] Name: JORGE A RIVERA Rep #: [id number] : 1960 Provider: JEANINE Raya rts Age/Sex: 64/M Location: [facility] Status: Signed HPI HPI History of Present Illness Details: JORGE A RIVERA, is a 64 year old white male who presents to the office today for an outpatient cardiovascular follow-up visit. He does have a history of underlying CAD status post CABG in December 2009, hypertension and hyperlipidemia. 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 From a cardiac standpoint, the patient is doing well. He denies any palpitations, chest pain, pressure or heaviness. He denies SOB, Orthopnea, and PND. He does not have bleeding issues; no blood in urine, stool or nosebleeds. He denies any decrease in energy level, myalgias, or claudication. He does not have edema, or sudden weight gain. He denies dizziness, lightheadedness, syncopal or near syncopal episodes, and headaches. Intake Vital Signs 01/02/24 14:20 04/24/24 14:43 Height 5 ft 10 in 5 ft 10 in Weight: 145 lb BMI 20.7 BP 141/77 H Blood Pressure Location Lt brachial Position Sitting Respiration 18 Pulse 68 Pulse Source Monitor Pulse Oximetry (%) 97 Intake Visit Reasons: 9 M FU Lapper Required: No Is patient in pain?: No Allergies ibuprofen (From Advil) Adverse Reaction (Intermediate, Verified 04/24/24 15:00) SOB Medications ???Medication ???Instructions ???Recorded ???Confirmed ???Type aspirin 81 mg tablet,delayed 81 mg PO QDAY heart 11/29/17 04/24/24 History release (Adult Aspirin Regimen) coenzyme Q10 100 mg capsule (Co 100 mg PO QDAY vitamin 11/29/17 04/24/24 History Q-10) multivitamin 1 tab PO QDAY vitamin 11/29/17 04/24/24 History omega-3 fatty acids 1,000 mg 1,000 mg PO QDAY heart health 11/29/17 04/24/24 History capsule (Fish Oil Concentrate) lisinopril 10 mg tablet See Rx Instructions .Route 07/11/23 04/24/24 Rx .COMPLEX #90 tabs atenolol 25 mg tablet 25 mg PO QDAY #90 tabs 12/31/23 04/24/24 Rx atorvastatin 10 mg tablet See Rx Instructions .Route 03/30/24 04/24/24 Rx .COMPLEX #45 tabs sodium bicarbonate 325 mg tablet 650 mg PO TID PRN 04/24/24 04/24/24 History Have you fallen in the past year?: No Nurse's Note: patient is taking 6 salt tablets daily [facility] Medical History History of SIADH Carotid bruit Essential hypertension COPD (chronic obstructive pulmonary disease) Hyperlipidemia Hypertension Atherosclerotic heart disease of [place] coronary artery without angina pectoris Surgical History History of coronary artery bypass surgery ( 01/11/10) History of hand surgery History of tonsillectomy History of left heart catheterization Family History Father CAD (coronary artery disease) S/P CABG (coronary artery bypass graft) Mother CAD (coronary artery disease) Hypertension Kidney disease Brother CAD (coronary artery disease) S/P CABG (coronary artery bypass graft) Sister S/P CABG (coronary artery bypass graft) CAD (coronary artery disease) Diabetes Social History household members: spouse Smoking Status: Former smoker quit date: 10/28/09 pack-years: 30 alcohol intake: never substance use type: does not use caffeine: Yes Type: coffee Number of servings: 2 ROS Const Const: Negative for fatigue, weakness, fever(s), headache(s), chills, frequent falls, weight gain or weight loss Eyes Eyes: Negative for blind spots, loss of peripheral vision, transient loss of vision, blurry vision, change in vision, double vision, floaters or tunnel vision ENT ENT: Negative for headache(s), dizziness, Nosebleed/epistaxis, balance problems or neck pain Cardio Chest Pain: No Palpitations: No Edema: None Muscle aches with walking: None Resp Respiratory: Negative for SOB with activity, SOB at rest or SOB orthopnea SOB lying down GI GI: Negative nausea, vomiting, heartburn, bloating, vomiting blood/hematemesis, bright, red blood in stools or black,tarry stools Musc Musc: Negative for muscle aches/ myalgia, muscle weakness, joint pain or balance problems Neuro Neuro: Negative for dizziness, lightheadedness, near syncope, syncope, orthostatic symptoms, frequent falls, headache(s), weakness, blurry vision or double vision [facility] Hematologic/Lymphatic : Negative for easy bleeding or easy bruising Endo Endo: Negative for fatigue Cardiology Exam Const Appearance: cooperative, healthy appear (more content not included)... Normal [facility] Lipid Profileon 04-17-2024 Cholesterol [Mass/Vol] 163 mg/dL Normal 200 [facility] Comment on above: Result Comment: <200 mg/dL Desirable 200-240 mg/dL Borderline >240 mg/dL High Risk Performed By: #### L 500.4100, L500.3400 #### [facility] CenterJordan [address]. [place], [place], [id number] Cholesterol in HDL [Mass/Vol] 65 mg/dL Normal [facility] Comment on above: Result Comment: The drugs N-Acetylcysteine and Metamizole may falsely depress this assay. Reference Range HDL <40 mg/dL Low HDL Cholesterol HDL >or= 60 mg/dL High HDL Cholesterol Performed By: #### L 500.4100, L500.3400 #### [facility] [address] [place], [address] Cholesterol in LDL [Mass/Vol] 87 mg/dL Normal 0-130 [facility] Comment on above: Performed By: #### L 500.4100, L500.3400 #### [facility] [address] [place], [address] Cholesterol in VLDL [Mass/Vol] 11 mg/dL Normal 5-40 [facility] Comment on above: Performed By: #### L 500.4100, L500.3400 #### [facility] [address] [place], [address] Triglyceride [Mass/Vol] 55 mg/dL Normal [facility] Comment on above: Result Comment: The drugs N-Acetylcysteine and Metamizole may falsely depress this assay. Serum Triglycerides Reference Interval Normal <150 mg/dL Borderline high 150 - 199 mg/dL High 200 - 499 mg/dL Very High > or = 500 mg/dL Performed By: #### L 500.4100, L500.3400 #### [facility] [address] [place], [address] Liver Profileon 04-17-2024 Albumin [Mass/Vol] 3.7 g/dL Normal 3.2-5.0 [facility] Comment on above: Performed By: #### L 500.4100, L500.3400 #### [facility] [address] [place], [address] ALK P 79 U/L Normal 45-117 [facility] Comment on above: Performed By: #### L 500.4100, L500.3400 #### [facility] [address] [place], [address] ALT [Catalytic activity/Vol] 21 U/L Normal 16-61 [facility] Comment on above: Performed By: #### L 500.4100, L500.3400 #### [facility] [address] [place], [address] AST [Catalytic activity/Vol] 21 U/L Normal 15-37 [facility] Comment on above: Performed By: #### L 500.4100, L500.3400 #### [facility] [address] [place], [address] Bilirubin [Mass/Vol] 1.00 mg/dL Normal 0.20-1.00 [facility] Comment on above: Result Comment: For patients on eltrombopag therapy, use of Dimension [place] TBIL is not recommended. Performed By: #### L 500.4100, L500.3400 #### [facility] [address] [place], [address] Bilirubin.direct [Mass/Vol] 0.26 mg/dL Normal 0.00-0.30 [facility] Comment on above: Performed By: #### L 500.4100, L500.3400 #### [facility] [address] [place], [address] Globulin (S) [Mass/Vol] 3.6 g/dL Normal 2.2-4.2 [facility] Comment on above: Performed By: #### L 500.4100, L500.3400 #### [facility] [address] [place], [address] T PROT 7.3 g/dL Normal 6.4-8.2 [facility] Comment on above: Performed By: #### L 500.4100, L500.3400 #### [facility] [address] 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 No contraindications or sensitivities were noted. Meds taken: none before testing. The two largest FVCs were repeatable. The two largest FEV1s were repeatable. Current ATS/ERS acceptability and repeatability standards for lung volumes met. Current ATS/ERS acceptability and repeatability standards for DLCO met with 2 acceptable maneuvers. IMPRESSION: Spirometry shows a reduced FEV1/FVC ratio; but individually normal FVC and FEV1 predicted values.This pattern indicates mild obstruction or a normal variant. The TLC, RV and RV/TLC are normal. The diffusing capacity is mildly reduced. 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21 2.83 105 SVC (L) 4.11 2.85 3.81 4.79 107 IC (L) 2.18 2.54 85 TLC (Pleth) (L) 6.43 5.21 6.52 7.82 98 RV/TLC (Pleth) (%) 36 27 34 41 106 LUNG DIFFUSION DLCOunc (ml/min/mmHg) 15.94 16.32 26.26 36.19 60 VA (L) 5.75 4.98 6.35 7.71 90 DLunc/VA (ml/min/mmHg/L) 2.77 3.03 4.23 5.43 65 BHT (sec) 9.85 IVC (L) 3.87 Comments: Medications and Allergies were reviewed for possible drug interactions per policy. No contraindications or sensitivities were noted. Meds taken: none before testing. The two largest FVCs were repeatable. The two largest FEV1s were repeatable. Current ATS/ERS acceptability and repeatability standards for lung volumes met. Current ATS/ERS acceptability and repeatability standards for DLCO met with 2 acceptable maneuvers. PULMONARY FUNCTION LAB [facility] SIX MINUTE WALKon 04-07-2024 Sarina Lino RPF T 04/07/2024 1:32 PM RESPIRATORY THERAPY SIX MINUTE WALK TEST OXIMETRY REPORT Six Minute Walk Test for This Encounter Oxygen Device Liters FIO2 SpO2% HR Activity Feet Speed (MPH) Flag R/A 95 86 Resting R/A 94 110 Six Minute Walk 1528 2.9 R/A 96 79 Recovery 1 minute post R/A 97 80 Recovery 2 minute post R/A 97 78 Recovery 3 minute post General Information Height Weight Pulse Oximetry Site Oximeter Pre Blood Pressure Post Blood Pressure Total Time Spent (min) 171.6 cm (5' 7.56) 64.4 kg (142 lb) R Index Finger Masimo 129/75 188/72 30 _ Distance Walked (meters) Distance Walked (feet) Male Predicted Walk Distance (feet) Male Lower Limit of Normal (feet) Male % Predicted Total Duration Of The Stops (seconds) 465.73 1528 1805.45 1303.45 84.6 -- _ Lowest SpO2 During 6 Minute Walk Pre-Marito Dyspnea Rating Pre-Marito Fatigue Rating Post Marito Dyspnea Rating Post Marito Fatigue Rating 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 94 % 0 0 2 2 -- None Six Minute Walk Trend (Previous Encounters) None SIGNATURE: GINNA Gonzalez PATIENT NAME: Jorge A Rivera DATE: April 07, 2024 TIME: 1:31 PM [facility] SIX MINUTE WALKOrdered By: Trav Norman on 04-07-2024 [facility] Work Phone: SPIROMETRY WITH DILATOR IF O BSTRUCTEDon 04-07-2024 DLCO (ml/min/mmHg) 15.94 ml/min/mmHg [facility] DLCO/VA (ml/min/mmHg/L) 2.77 ml/min/mmHg/ L [facility] ERV BOX (L) 1.93 L [facility] FFO00-70% PRE (L/S) 1.65 L/S [facility] FEV1 PRE (L) 2.75 L [facility] FEV1/FVC PRE (%) 65 % [facility] FRC Box (L) 4.39 L [facility] FVC PRE (L) 4.20 L [facility] IC BOX (L) 2.18 L [facility] PEF PRE (L/S) 6.01 L/S [facility] RV Box (L) 2.33 L [facility] RV/TLC Box (%) 36 % [facility] TLC Box (L) 6.43 L [facility] VA (L) 5.75 L [facility] VC (L) BOX 4.11 L [facility] Renal function 2000 panelon 04-03-2024 Albumin [Mass/Vol] 4.2 g/dL Normal 3.9-4.9 [facility] Comment on above: Order Comment: Speci men Type: BLOOD SPECIMENOrdering Facility: [facility] Address: [address] [place] [address] Performed By: #### 2 4362-6 ####[facility] NIKHIL [facility] H[facility]ITALCALVIN [id number] [place] [address] [place] Anion gap [Moles/Vol] 10 mmol/L Normal 8-15 [facility] Comment on above: Order Comment: Speci men Type: BLOOD SPECIMENOrdering Facility: [facility] Address: [address] [place], [place] [id number] Performed By: #### 2 4362-6 ####[facility] CHANELLWNCLIA [id number] [place] [address] [place] Calcium [Mass/Vol] 9.4 mg/dL Normal 8.5-10.2 [facility] Comment on above: Order Comment: Speci men Type: BLOOD SPECIMENOrdering Facility: [facility] Address: [address] [place] [address] Performed By: #### 2 4362-6 ####[facility] BEACHWALEJANDROLIA [id number] [place] [address] [place] Chloride [Moles/Vol] 94 mmol/L Low 98-107 [facility] Comment on above: Order Comment: Speci men Type: BLOOD SPECIMENOrdering Facility: [facility] Address: [address] [place] [address] Performed By: #### 2 4362-6 ####[facility] BEACHJASONLIA [id number] [place] [address] [place] CO2 [Moles/Vol] 24 mmol/L Normal 22-30 [facility] Comment on above: Order Comment: Speci men Type: BLOOD SPECIMENOrdering Facility: [facility] Address: [address] [place] [address] Performed By: #### 2 4362-6 ####[facility] BEACHRASHAWNWNCLIA [id number] [place] [address] [place] Creatinine [Mass/Vol] 0.66 mg/dL Low 0.73-1.22 [facility] Comment on above: Order Comment: Speci men Type: BLOOD SPECIMENOrdering Facility: [facility] Address: [address] [place] [address] Performed By: #### 2 4362-6 ####[facility] HOSPITALNCLIA [id number] [place] [address] [place] Creatinine and Glomerular filtration rate.predicted panel (S/P/Bld) 104 mL/min/1.73m??? Normal >=60 [facility] Comment on above: Order Comment: Gm arroyo Type: BLOOD SPECIMENOrdering Facility: [facility] Address: [address] [place] [address] Result Comment: Kitty mated Glomerular Filtration Rate (eGFR) is calculated using the 2020 CKD-EPI creatinine equation. This equation utilizes serum creatinine, sex, and age as parameters. The creatinine assay has traceable calibration to isotope dilution-mass spectrometry. Refer to KDIGO guidelines for clinical interpretation. In patients with unstable renal function, e.g. those with acute kidney injury, the eGFR may not accurately reflect actual GFR. Performed By: #### 2 4362-6 ####[facility] [id number] [place] [address] [place] Glucose [Mass/Vol] 122 mg/dL High 74-99 [facility] Comment on above: Order Comment: Gm arroyo Type: BLOOD SPECIMENOrdering Facility: [facility] Address: [address] [place] [address] Result Comment: The [place] Diabetes Association (ADA) provides guidance for cutoff values for fasting glucose and random glucose. The ADA defines fasting as no caloric intake for at least 8 hours. Fasting plasma glucose results between 100 to 125 mg/dL indicate increased risk for diabetes (prediabetes). Fasting plasma glucose results greater than or equal to 126 mg/dL meet the criteria for diagnosis of diabetes. In the absence of unequivocal hyperglycemia, results should be confirmed by repeat testing. In a patient with classic symptoms of hyperglycemia or hyperglycemic crisis, random plasma glucose results greater than or equal to 200 mg/dL meet the criteria for diagnosis of diabetes. Reference: Standards of Medical Care in Diabetes 2016, [place] [employer] Association. Diabetes Care. 2016.39(Suppl 1). Performed By: #### 2 4362-6 ####[facility] HOSPITALNCLI [id number] [place] [address] [place] Phosphate [Mass/Vol] 3.3 mg/dL Normal 2.7-4.8 [facility] Comment on above: Order Comment: Speci men Type: BLOOD SPECIMENOrdering Facility: [facility] Address: [address] [place] [address] Performed By: #### 2 4362-6 ####[facility] NIKHIL MILLRASHAWNWALEJANDROLIA [id number] [place] [address] [place] Potassium [Moles/Vol] 4.2 mmol/L Normal 3.7-5.1 [facility] Comment on above: Order Comment: Speci men Type: BLOOD SPECIMENOrdering Facility: [facility] Address: [address] [place] [address] Performed By: #### 2 4362-6 ####[facility] BEACHChristinaNCLIA [id number] [place] [address] [place] Sodium [Moles/Vol] 128 mmol/L Low 136-144 [facility] Comment on above: Order Comment: Speci men Type: BLOOD SPECIMENOrdering Facility: [facility] Address: [address] [place] [address] Performed By: #### 2 4362-6 ####[facility] HOSPITALNCLIA [id number] [place] [address] [place] Urea nitrogen [Mass/Vol] 12 mg/dL Normal 9-24 [facility] Comment on above: Order Comment: Speci men Type: BLOOD SPECIMENOrdering Facility: [facility] Address: [address] [place] [address] Performed By: #### 2 4362-6 ####[facility] MILLBLACK RIVER FALLSNCLIA [id number] [place] [address] [place] XR Chest PA and LateralOrder ed By: Ccf Provider on 02-20-2024 Interpretation and review of laboratory results Abnormal [facility] Radiology Result ACTIONABLE Abnormal [facility] Comment on above: This report contains an incidental or actionable finding. This finding may be a new finding separate from the reason your provider ordered the imaging test or it may be an already known finding that needs additional or continued follow-up. Because of this incidental or actionable finding, you may need another test (imaging or a different type of test). Please contact your provider for the next steps. [facility] XR Chest PA and Lateralon IMPRESSION: Pleural thickening along the left lateral hemithorax. CT chest recommended for further evaluation ACTIONABLE RESULT: FOLLOW-UP Acuity: Actionable Findings: Thoracic-Other Routing Code: CT_1 Recommendation: CT Chest WO IVCON Time Frame: At the discretion of the clinical team. COMMUNICATION: Results will be communicated with the ordering provider via [employer] staff message or phone message by [employer] within 2 business days of report finalization. --END OF FINDING-- Drop Wirer: FABRICE Transcribe Date/Time: Feb 20 2024 1:48P Dictated by : CASANDRA RITTER MD This examination was interpreted and the report reviewed and electronically signed by: CASANDRA RITTER MD on Feb 20 2024 1:50PM [facility] DIVISION OF RADIOLOGY * * *Final Report* * * DATE OF EXAM: Feb 19 2024 9:09AM STX 5291 - XR CHEST 2V FRONTAL/LAT / PROCEDURE REASON: multiple diagnoses * * * * Physician Interpretation * * * * EXAMINATION: CHEST RADIOGRAPH (2 VIEW FRONTAL & LATERAL) CLINICAL HISTORY: Hyponatremia SIADH (syndrome of inappropriate ADH production) ([facility]) MQ: XC2_6 EXAM DATE/TIME: 02/19/2024 9:09 AM COMPARISON: No relevant prior studies available. RESULT: Lines, tubes, and devices: Mediastinal wires are seen. Lungs and pleura: No consolidation. No lung mass. Somewhat lobulated pleural thickening along the left lateral hemithorax .No pneumothorax. Cardiomediastinal silhouette: Normal cardiomediastinal silhouette. Bones and soft tissues: Unremarkable. DIVISION OF RADIOLOGY [facility] * * *Final Report* * * DATE OF EXAM: Feb 19 2024 9:09AM STX 5291 - XR CHEST 2V FRONTAL/LAT / PROCEDURE REASON: multiple diagnoses * * * * Physician Interpretation * * * * EXAMINATION: CHEST RADIOGRAPH (2 VIEW FRONTAL & LATERAL) CLINICAL HISTORY: Hyponatremia SIADH (syndrome of inappropriate ADH production) ([facility]) MQ: XC2_6 EXAM DATE/TIME: 02/19/2024 9:09 AM COMPARISON: No relevant prior studies available. RESULT: Lines, tubes, and devices: Mediastinal wires are seen. Lungs and pleura: No consolidation. No lung mass. Somewhat lobulated pleural thickening along the left lateral hemithorax .No pneumothorax. Cardiomediastinal silhouette: Normal cardiomediastinal silhouette. Bones and soft tissues: Unremarkable. IMPRESSION IMPRESSION: Pleural thickening along the left lateral hemithorax. CT chest recommended for further evaluation ACTIONABLE RESULT: FOLLOW-UP Acuity: Actionable Findings: Thoracic-Other Routing Code: CT_1 Recommendation: CT Chest WO IVCON Time Frame: At the discretion of the clinical team. COMMUNICATION: Results will be communicated with the ordering provider via [employer] staff message or phone message by [employer] within 2 business days of report finalization. --END OF FINDING-- Drop Wirer: FABRICE Transcribe Date/Time: Feb 20 2024 1:48P Dictated by : CASANDRA RITTER MD This examination was interpreted and the report reviewed and electronically signed by: CASANDRA RITTER MD on Feb 20 2024 1:50PM EST [facility] CBC panel Auto (Bld)on 02-18 Erythrocyte distribution width (RBC) [Ratio] 13.2 % 11.5 - 15.0 % [facility] Hematocrit (Bld) [Volume fraction] 40.9 % 39.0 - 51.0 % [facility] Hemoglobin (Bld) [Mass/Vol] 14.1 g/dL 13.0 - 17.0 g/dL [facility] Interpretation and review of laboratory results Normal [facility] MCH (RBC) [Entitic mass] 32.9 pg 26.0 - 34.0 pg [facility] MCHC (RBC) [Mass/Vol] 34.5 g/dL 30.5 - 36.0 g/dL [facility] MCV (RBC) [Entitic vol] 95.3 fL 80.0 - 100.0 fL [facility] Nucleated RBC (Bld) [#/Vol] NINF [facility] Platelet mean volume (Bld) [Entitic vol] 9.5 fL 9.0 - 12.7 fL [facility] Platelets (Bld) [#/Vol] 238 10*3/uL [facility] RBC (Bld) [#/Vol] 4.29 10*6/uL 4.20 - 6.0 0 m/uL [facility] WBC (Bld) [#/Vol] 8.75 10*3/uL [facility] Hepatic function 2000 panelo n 02-19-2024 Albumin [Mass/Vol] 4.6 g/dL 3.9 - 4.9 g/dL [facility] ALP [Catalytic activity/Vol] 83 U/L 38 - 113 U/L [facility] ALT [Catalytic activity/Vol] 13 U/L 10 - 54 U/L [facility] AST [Catalytic activity/Vol] 19 U/L 14 - 40 U/L [facility] Bilirubin [Mass/Vol] 0.7 mg/dL 0.2 - 1 .3 mg/dL [facility] Bilirubin.conjugated [Mass/Vol] 0.2 mg/dL High NINF - 0.2 mg/dL [facility] Protein [Mass/Vol] 7.4 g/dL 6.3 - 8.0 g/dL [facility] No Panel InformationOrdered By: Renetta Grant on 02-19-2024 Interpretation and review of laboratory results Abnormal [facility] OSMOLALITY URINEOrdered By: Letty Stephenson on 02-19-2024 Osmolality (U) [Osmolality] 483 mosm/kg [facility] Osmolality (U) [Osmolality]O rdered By: Letty Stephenson on 02-19-2024 Interpretation and review of laboratory results Normal [facility] URIC ACIDOrdered By: Renetta Grant on 02-19-2024 Urate [Mass/Vol] 3.4 mg/dL Low 4.0 - 8.1 mg/dL [facility] Urinalysis complete panel (U )Ordered By: Demar Ceballos on 02-19-2024 Bacteria LM.HPF (Urine sed) [#/Area] Negative Negative /HPF [facility] Bilirubin Ql (U) Negative Negative [facility] Clarity (Unsp spec) Clear Clear [facility] Color (U) Yellow Yellow [facility] Epithelial cells LM.HPF (Urine sed) [#/Area] None Seen /HPF [facility] Glucose Test strip (U) [Mass/Vol] Negative Negative [facility] Hemoglobin Ql (U) Negative Negative [facility] Hyaline casts (Urine sed) [#/Area] 0 /[LPF] 0 /LPF [facility] Ketones Ql (U) Negative Negative [facility] Leukocyte esterase Test strip Ql (U) Negative Negative [facility] Nitrite Ql (U) Negative Negative [facility] pH (U) 7.0 [pH] NINF - 8.5 [facility] Protein (U) [Mass/Vol] Negative Negative Cl [facility] RBC LM.HPF (Urine sed) [#/Area] 0-2 /HPF 0-2 /HPF [facility] Specific gravity (U) [Rel density] 1.016 1.005 - 1.030 [facility] Urobilinogen Ql (U) 0.2 EU/dL 0.2-1.0 EU/dL [facility] WBC LM.HPF (Urine sed) [#/Area] 0-5 /HPF 0-5 /HPF [facility] This test was developed and its performance characteristics determined by [facility]'s [facility] Pathology and Laboratory Medicine [place] ([facility]). It has not been cleared or approved by the FDA. -[facility] is regulated under CLIA as qualified to perform high-complexity testing. This test is used for clinical purposes. It should not be regarded as investigational or for research. [facility] XR Chest PA and Lateralon Radiology Study observation (narrative) [facility] Basophil percentageOrdered B y: Judy Guan on 01-31-2024 Chloride [Moles/Vol] 97 mmol/L 98-107 [facility] Glucose [Mass/Vol] 92 mg/dL 74-106 [facility] Potassium [Moles/Vol] 4.1 mmol/L 3.5-5.1 [facility] Sodium [Moles/Vol] 130 mmol/L 136-145 [facility] Laboratory - Chemistry and C hemistry - challengeOrdered By: Judy Guan on 01-31-2024 CO2 [Moles/Vol] 27.0 mmol/L 21.0-32.0 [facility] Urea nitrogen/Creatinine [Mass ratio] 14.1 mg/mg 10-20 [facility] No Panel InformationOrdered By: Judy Guan on 01-31-2024 Estimated GFR (MDRD) Amer 116 mL/min >60 [facility] Comment on above: GFR Calc Estimated GFR (MDRD) Non-Af Amer 96 mL/min >60 [facility] Comment on above: Non- GFR Calc Serum or plasma calcium adelso urement (mass/volume)Ordered By: Judy Guan on 01-31-2024 Calcium [Mass/Vol] 9.0 mg/dL 8.5-10.1 [facility] Serum or plasma creatinine m easurement (mass/volume)Ordered By: Judy Guan on 01-31-2024 Creatinine [Mass/Vol] 0.85 mg/dL 0.70-1.30 [facility] Comment on above: The validity of the calculated GFR & GFRAA in patients over 70 years has not been determined. Clinical correlation is essential. Serum or plasma urea nitroge n measurement (mass/volume)Ordered By: Judy Guan on 01-31-2024 Urea nitrogen [Mass/Vol] 12 mg/dL 7- [facility] Thin prep Papanicolaou smear with manual screeningOrdered By: Judy Guan on 01-31-2024 Thin prep Papanicolaou smear with manual screening 6 -15 [facility] Basophil percentageOrdered B y: Judy Guan on 01-10-2024 Chloride [Moles/Vol] 93 mmol/L 98-107 [facility] Glucose [Mass/Vol] 93 mg/dL 74-106 [facility] Potassium [Moles/Vol] 3.7 mmol/L 3.5-5.1 [facility] Sodium [Moles/Vol] 126 mmol/L 136-145 [facility] Laboratory - Chemistry and C hemistry - challengeOrdered By: Judy Guan on 01-10-2024 CO2 [Moles/Vol] 28.0 mmol/L 21.0-32.0 [facility] Urea nitrogen/Creatinine [Mass ratio] 11.4 mg/mg 10- [facility] No Panel InformationOrdered By: Judy Guan on 01-10-2024 Estimated GFR (MDRD) Amer 112 mL/min >60 [facility] Comment on above: GFR Calc Estimated GFR (MDRD) Non-Af Amer 93 mL/min >60 [facility] Comment on above: Non- GFR Calc Serum or plasma calcium adelso urement (mass/volume)Ordered By: Judy Guan on 01-10-2024 Calcium [Mass/Vol] 8.5 mg/dL 8.5-10.1 [facility] Serum or plasma creatinine m easurement (mass/volume)Ordered By: Judy Guan on 01-10-2024 Creatinine [Mass/Vol] 0.88 mg/dL 0.70-1.30 [facility] Comment on above: The validity of the calculated GFR & GFRAA in patients over 70 years has not been determined. Clinical correlation is essential. Serum or plasma urea nitroge n measurement (mass/volume)Ordered By: Judy Guan on 01-10-2024 Urea nitrogen [Mass/Vol] 10 mg/dL 7-18 [facility] Thin prep Papanicolaou smear with manual screeningOrdered By: Judy Guan on 01-10-2024 Thin prep Papanicolaou smear with manual screening 5 -15 [facility] Absolute lymphocyte countOrd ered By: Bull Gusman on 01-03-2024 Lymphocytes Auto (Unsp spec) [#/Vol] 1.18 10*3/uL 0.83-4.51 [facility] Automated lymphocyte count a s percentage of total leukocytesOrdered By: Bull Gusman on 01-03-2024 Lymphocytes/100 WBC Auto (Unsp spec) 22.5 % 19-41 [facility] Basophil percentageOrdered B y: Bull Gusman on 01-03-2024 Basophils/100 WBC (Bld) 0.4 % 0-1 [facility] Eosinophils/100 WBC (Bld) 0.6 % 0-5 [facility] Hemoglobin (Bld) [Mass/Vol] 12.6 g/dL 13.0-16.5 [facility] Monocytes/100 WBC (Bld) 9.9 % 0-10 [facility] Neutrophils (Bld) [#/Vol] 3.5 10*3/uL 2.0-7.7 [facility] Neutrophils/100 WBC (Bld) 66.0 % 47-70 [facility] WBC (Bld) [#/Vol] 5.2 10*3/uL 4.4-11.0 [facility] Basophil percentageOrdered B y: Judy Guan on 01-03-2024 Chloride [Moles/Vol] 92 mmol/L 98-107 [facility] Glucose [Mass/Vol] 95 mg/dL 74-106 [facility] Potassium [Moles/Vol] 3.7 mmol/L 3.5-5.1 [facility] Sodium [Moles/Vol] 126 mmol/L 136-145 [facility] Determination of erythrocyte mean corpuscular volume (MCV)Ordered By: Bull Gusman on 01-03-2024 MCV (RBC) [Entitic vol] 88.2 fL 80-94 [facility] Erythrocyte distribution wid th ratioOrdered By: Bullhuong Gusman on 01-03-2024 Erythrocyte distribution width (RBC) [Ratio] 11.6 % 11.6-14.6 [facility] Erythrocyte distribution wid th standard deviationOrdered By: Bull Gusman on 01-03-2024 Erythrocyte distribution width (RBC) [Entitic vol] 37.7 fL 35.1-43.9 [facility] Hematocrit Auto (Bld) [Volum e fraction]Ordered By: Bullhuong Gusman on 01-03-2024 Hematocrit (Bld) [Volume fraction] 35.2 % 40-54 [facility] Immature granulocytes/100 WB C Auto (Bld)Ordered By: Bull Gusman on 01-03-2024 Immature granulocytes/100 WBC (Bld) 0.600 % 0.0-0.9 [facility] Comment on above: IG% - Immature Granu locytes (promyelocytes, myelocytes and metamyelocytes) > 1% indicates that a LEFT SHIFT is Present. Laboratory - Chemistry and C hemistry - challengeOrdered By: Judy Guan on 01-03-2024 CO2 [Moles/Vol] 24.0 mmol/L 21.0-32.0 [facility] Urea nitrogen/Creatinine [Mass ratio] 12.9 mg/mg 10-20 [facility] Laboratory - Hematology and Cell countsOrdered By: Bull Gusman on 01-03-2024 MCH (RBC) [Entitic mass] 31.6 pg 27.0-32.0 [facility] MCHC (RBC) [Mass/Vol] 35.8 g/dL 32-36 [facility] Nucleated RBC/100 WBC (Bld) [Ratio] 0 % 0-5 [facility] Platelet mean volume (Bld) [Entitic vol] 10.0 fL 6.2-12.0 [facility] Platelets (Bld) [#/Vol] 174 10*3/uL 150-450 [facility] No Panel InformationOrdered By: Judy Guan on 01-03-2024 Estimated Creatinine Clearance Calc 125.10 ml/min [facility] Estimated GFR (MDRD) Amer 195 mL/min >60 [facility] Comment on above: GFR Calc Estimated GFR (MDRD) Non-Af Amer 161 mL/min >60 [facility] Comment on above: Non- GFR Calc RBC Auto (Bld) [#/Vol]Ordere d By: Bull Gusman on 01-03-2024 RBC (Bld) [#/Vol] 3.99 10*6/uL 4.6-6.2 [facility] Serum or plasma calcium adelso urement (mass/volume)Ordered By: Judy Guan on 01-03-2024 Calcium [Mass/Vol] 8.2 mg/dL 8.5-10.1 [facility] Serum or plasma creatinine m easurement (mass/volume)Ordered By: Judy Guan on 01-03-2024 Creatinine [Mass/Vol] 0.54 mg/dL 0.70-1.30 [facility] Comment on above: The validity of the calculated GFR & GFRAA in patients over 70 years has not been determined. Clinical correlation is essential. Serum or plasma urea nitroge n measurement (mass/volume)Ordered By: Judy Guan on 01-03-2024 Urea nitrogen [Mass/Vol] 7 mg/dL 7-18 [facility] Thin prep Papanicolaou smear with manual screeningOrdered By: Judy Guan on 01-03-2024 Thin prep Papanicolaou smear with manual screening 10 5-15 [facility] Basophil percentageOrdered B y: Josee Guan on 01-02-2024 Basophil percentage 2.5 mg/dL 2.5-4.9 [facility] Bilirubin [Mass/Vol] 1.10 mg/dL 0.20-1.00 [facility] Comment on above: For patients on eltr ombopag therapy, use of Dimension [place] TBIL is not recommended. Protein [Mass/Vol] 6.9 g/dL 6.4-8.2 [facility] Laboratory - Chemistry and C hemistry - challengeOrdered By: Judy Guan on 01-02-2024 Sodium (U) [Moles/Vol] 52 mmol/L Not Establ. [facility] Laboratory - Chemistry and C hemistry - challengeOrdered By: Josee Guan on 01-02-2024 Albumin/Globulin [Mass ratio] 0.9 {ratio} 0.9-2.4 [facility] ALP [Catalytic activity/Vol] 105 U/L 45-117 [facility] ALT [Catalytic activity/Vol] 30 U/L 16-61 [facility] Globulin (S) [Mass/Vol] 3.6 g/dL 2.2-4.2 [facility] Magnesium [Mass/Vol] 2.0 mg/dL 1.6-2.6 [facility] Serum or plasma thyroid stim ulating hormone (TSH) measurement (units/volume)Ordered By: Josee Guan on 01-02-2024 TSH Qn 0.63 uIU/mL 0.358-3.74 [facility] Thin prep Papanicolaou smear with manual screeningOrdered By: Josee Guan on 01-02-2024 Thin prep Papanicolaou smear with manual screening 3.3 g/dL 3.2-5.0 [facility] Thin prep Papanicolaou smear with manual screening 25 U/L 15-37 [facility] Absolute lymphocyte countOrd ered By: Josee Guan on 01-01-2024 Lymphocytes Auto (Unsp spec) [#/Vol] 1.08 10*3/uL 0.83-4.51 [facility] Automated lymphocyte count a s percentage of total leukocytesOrdered By: Josee Guan on 01-01-2024 Lymphocytes/100 WBC Auto (Unsp spec) 15.7 % 19-41 [facility] Basophil percentageOrdered B y: Josee Guan on 01-01-2024 Basophils/100 WBC (Bld) 0.3 % 0-1 [facility] Eosinophils/100 WBC (Bld) 0.4 % 0-5 [facility] Hemoglobin (Bld) [Mass/Vol] 13.2 g/dL 13.0-16.5 [facility] Monocytes/100 WBC (Bld) 8.7 % 0-10 [facility] Neutrophils (Bld) [#/Vol] 5.1 10*3/uL 2.0-7.7 [facility] Neutrophils/100 WBC (Bld) 74.5 % 47-70 [facility] WBC (Bld) [#/Vol] 6.9 10*3/uL 4.4-11.0 [facility] Basophil percentageOrdered B y: Dereck Delvalle on 01-01-2024 Chloride [Moles/Vol] 83 mmol/L 98-107 [facility] Glucose [Mass/Vol] 121 mg/dL 74-106 [facility] Comment on above: Fasting Glucose resu lt from 100 to 125 mg/dL suggests IMPAIRED HOMEOSTASIS per A.D.A. criteria. Potassium [Moles/Vol] 4.3 mmol/L 3.5-5.1 [facility] Comment on above: Moderate Hemolysis, Result may be falsely increased. Sodium [Moles/Vol] 115 mmol/L 136-145 [facility] Comment on above: Critical Result(s) C alled at: 13:06:55 01/01/2024 by: Aurea Connor to Sofía Veronica RN (ED). Results read back by same. Determination of erythrocyte mean corpuscular volume (MCV)Ordered By: Josee Guan on 01-01-2024 MCV (RBC) [Entitic vol] 89.5 fL 80-94 [facility] Erythrocyte distribution wid th ratioOrdered By: Josee Guan on 01-01-2024 Erythrocyte distribution width (RBC) [Ratio] 12.1 % 11.6-14.6 [facility] Erythrocyte distribution wid th standard deviationOrdered By: Josee Guan on 01-01-2024 Erythrocyte distribution width (RBC) [Entitic vol] 39.8 fL 35.1-43.9 [facility] Hematocrit Auto (Bld) [Volum e fraction]Ordered By: Josee Guan on 01-01-2024 Hematocrit (Bld) [Volume fraction] 35.9 % 40-54 [facility] Immature granulocytes/100 WB C Auto (Bld)Ordered By: Josee Guan on 01-01-2024 Immature granulocytes/100 WBC (Bld) 0.400 % 0.0-0.9 [facility] Comment on above: IG% - Immature Granu locytes (promyelocytes, myelocytes and metamyelocytes) > 1% indicates that a LEFT SHIFT is Present. Laboratory - Chemistry and C hemistry - challengeOrdered By: Dereck Delvalle on 01-01-2024 CO2 [Moles/Vol] 26.0 mmol/L 21.0-32.0 [facility] Urea nitrogen/Creatinine [Mass ratio] 11.8 mg/mg 10-20 [facility] Laboratory - Hematology and Cell countsOrdered By: Josee Guan on 01-01-2024 MCH (RBC) [Entitic mass] 32.9 pg 27.0-32.0 [facility] MCHC (RBC) [Mass/Vol] 36.8 g/dL 32-36 [facility] Nucleated RBC/100 WBC (Bld) [Ratio] 0.3 % 0-5 [facility] Platelet mean volume (Bld) [Entitic vol] 11.5 fL 6.2-12.0 [facility] Platelets (Bld) [#/Vol] 211 10*3/uL 150-450 [facility] No Panel InformationOrdered By: Dereck Delvalle on 01-01-2024 Estimated Creatinine Clearance Calc 101.99 ml/min [facility] Estimated GFR (MDRD) Amer 151 mL/min >60 [facility] Comment on above: GFR Calc Estimated GFR (MDRD) Non-Af Amer 125 mL/min >60 [facility] Comment on above: Non- GFR Calc RBC Auto (Bld) [#/Vol]Ordere d By: Josee Guan on 01-01-2024 RBC (Bld) [#/Vol] 4.01 10*6/uL 4.6-6.2 [facility] Serum or plasma calcium adelso urement (mass/volume)Ordered By: Dereck Delvalle on 01-01-2024 Calcium [Mass/Vol] 8.3 mg/dL 8.5-10.1 [facility] Serum or plasma creatinine m easurement (mass/volume)Ordered By: Dereckgaye Delvalle on 01-01-2024 Creatinine [Mass/Vol] 0.68 mg/dL 0.70-1.30 [facility] Comment on above: The validity of the calculated GFR & GFRAA in patients over 70 years has not been determined. Clinical correlation is essential. Serum or plasma urea nitroge n measurement (mass/volume)Ordered By: Dereck Delvalle on 01-01-2024 Urea nitrogen [Mass/Vol] 8 mg/dL 7-18 [facility] Thin prep Papanicolaou smear with manual screeningOrdered By: [facility] on 01-01-2024 Thin prep Papanicolaou smear with manual screening 241 mOsm/KG 280-301 [facility] Thin prep Papanicolaou smear with manual screening 6 5-15 [facility] Urine osmolality measurement Ordered By: [facility] on 01-01-2024 Osmolality (U) [Osmolality] 351 mOsm/KG >50 [facility] Comment on above: Normal Urine Referen ce Ranges Random: 50 - 1200 mOsm/kg H20 depending on fluid intake Random: >850 mOsm/kg after 12 hour fluid restriction 24 hour: ~300 - 900 mOsm/kg H2O Laboratory - Microbiology an d Antimicrobial susceptibilityon 12-29-2023 SARS-CoV-2 (COVID-19) RNA RADHA+probe Ql (Unsp spec) Not detected [facility] No Panel Informationon 12-28 Influenza Types A,B Rapid (Clinic) Detected [facility] Basophil percentageOrdered B y: Karla Boyer on 10-09-2023 Bilirubin [Mass/Vol] 0.90 mg/dL 0.20-1.00 [facility] Comment on above: For patients on eltr ombopag therapy, use of Dimension [place] TBIL is not recommended. Cholesterol [Mass/Vol] 161 mg/dL <200 [facility] Comment on above: <200 mg/dL Desirable 200-240 mg/dL Borderline >240 mg/dL High Risk Protein [Mass/Vol] 7.6 g/dL 6.4-8.2 [facility] Triglyceride [Mass/Vol] 49 mg/dL <199 [facility] Comment on above: The drugs N-Acetylcy steine and Metamizole may falsely depress this assay.Serum Triglycerides Reference Interval Normal <150 mg/dL Borderline high 150 - 199 mg/dL High 200 - 499 mg/dL Very High > or = 500 mg/dL Direct bilirubinOrdered By: Karla Boyer on 10-09-2023 Bilirubin.direct [Mass/Vol] 0.24 mg/dL 0.00-0.30 [facility] Laboratory - Chemistry and C hemistry - challengeOrdered By: Karla Boyer on 10-09-2023 ALP [Catalytic activity/Vol] 80 U/L 45-117 [facility] ALT [Catalytic activity/Vol] 24 U/L 16-61 [facility] Globulin (S) [Mass/Vol] 3.9 g/dL 2.2-4.2 [facility] Serum or plasma albumin adelso urement (mass/volume)Ordered By: Karla Boyer on 10-09-2023 Albumin [Mass/Vol] 3.7 g/dL 3.2-5.0 [facility] Serum or plasma cholesterol in HDL measurement (mass/volume)Ordered By: Karla Boyer on 10-09-2023 Cholesterol in HDL [Mass/Vol] 67 mg/dL >40 [facility] Comment on above: The drugs N-Acetylcy steine and Metamizole may falsely depress this assay. Reference Range HDL <40 mg/dL Low HDL Cholesterol HDL >or= 60 mg/dL High HDL Cholesterol Serum or plasma cholesterol in VLDL measurement (mass/volume)Ordered By: Karla Boyer on 10-09-2023 Cholesterol in VLDL [Mass/Vol] 10 mg/dL 5-40 [facility] Serum or plasma low density lipoprotein (LDL) cholesterol measurement (mass/volume)Ordered By: Karla Boyer on 10-09-2023 Cholesterol in LDL [Mass/Vol] 84 mg/dL 0-130 [facility] Thin prep Papanicolaou smear with manual screeningOrdered By: Karla Boyer on 10-09-2023 Thin prep Papanicolaou smear with manual screening 23 U/L 15-37 [facility] Basophil percentageOrdered B y: Judy Guan on 10-04-2023 Chloride [Moles/Vol] 96 mmol/L 98-107 [facility] Glucose [Mass/Vol] 94 mg/dL 74-106 [facility] Potassium [Moles/Vol] 4.3 mmol/L 3.5-5.1 [facility] Sodium [Moles/Vol] 129 mmol/L 136-145 [facility] Laboratory - Chemistry and C hemistry - challengeOrdered By: Judy Gaun on 10-04-2023 CO2 [Moles/Vol] 26.0 mmol/L 21.0-32.0 [facility] Urea nitrogen/Creatinine [Mass ratio] 15.1 mg/mg 10-20 [facility] No Panel InformationOrdered By: Judy Guan on 10-04-2023 Estimated GFR (MDRD) Amer 126 mL/min >60 [facility] Comment on above: GFR Calc Estimated GFR (MDRD) Non-Af Amer 104 mL/min >60 [facility] Comment on above: Non- GFR Calc Serum or plasma calcium adelso urement (mass/volume)Ordered By: Judy Guan on 10-04-2023 Calcium [Mass/Vol] 8.8 mg/dL 8.5-10.1 [facility] Serum or plasma creatinine m easurement (mass/volume)Ordered By: Judy Guan on 10-04-2023 Creatinine [Mass/Vol] 0.80 mg/dL 0.70-1.30 [facility] Comment on above: The validity of the calculated GFR & GFRAA in patients over 70 years has not been determined. Clinical correlation is essential. Serum or plasma urea nitroge n measurement (mass/volume)Ordered By: Judy Guan on 10-04-2023 Urea nitrogen [Mass/Vol] 12 mg/dL 7-18 [facility] Thin prep Papanicolaou smear with manual screeningOrdered By: Judy Guan on 10-04-2023 Thin prep Papanicolaou smear with manual screening 7 5-15 [facility] Basophil percentageOrdered B y: Judy Guan on 06-10-2023 Chloride [Moles/Vol] 95 mmol/L 98-107 [facility] Glucose [Mass/Vol] 101 mg/dL 74-106 [facility] Comment on above: Fasting Glucose resu lt from 100 to 125 mg/dL suggests IMPAIRED HOMEOSTASIS per A.D.A. criteria. Potassium [Moles/Vol] 4.4 mmol/L 3.5-5.1 [facility] Sodium [Moles/Vol] 128 mmol/L 136-145 [facility] Laboratory - Chemistry and C hemistry - challengeOrdered By: Judy Guan on 06-10-2023 CO2 [Moles/Vol] 27.0 mmol/L 21.0-32.0 [facility] Urea nitrogen/Creatinine [Mass ratio] 13.8 mg/mg 10-20 [facility] No Panel InformationOrdered By: Judy Guan on 06-10-2023 Estimated GFR (MDRD) Amer 114 mL/min >60 [facility] Comment on above: GFR Calc Estimated GFR (MDRD) Non-Af Amer 94 mL/min >60 [facility] Comment on above: Non- GFR Calc Serum or plasma calcium adelso urement (mass/volume)Ordered By: Judy Guan on 06-10-2023 Calcium [Mass/Vol] 9.3 mg/dL 8.5-10.1 [facility] Serum or plasma creatinine m easurement (mass/volume)Ordered By: Judy Guan on 06-10-2023 Creatinine [Mass/Vol] 0.87 mg/dL 0.70-1.30 [facility] Comment on above: The validity of the calculated GFR & GFRAA in patients over 70 years has not been determined. Clinical correlation is essential. Serum or plasma urea nitroge n measurement (mass/volume)Ordered By: Judy Guan on 06-10-2023 Urea nitrogen [Mass/Vol] 12 mg/dL 7-18 [facility] Thin prep Papanicolaou smear with manual screeningOrdered By: Judy Guan on 06-10-2023 Thin prep Papanicolaou smear with manual screening 6 5-15 [facility] Basophil percentageOrdered B y: Dr. Blair on 03-04-2023 Bilirubin [Mass/Vol] 0.60 mg/dL 0.20-1.00 [facility] Comment on above: For patients on eltr ombopag therapy, use of Dimension [place] TBIL is not recommended. Chloride [Moles/Vol] 96 mmol/L 98-107 [facility] Cholesterol [Mass/Vol] 149 mg/dL <200 [facility] Comment on above: <200 mg/dL Desirable 200-240 mg/dL Borderline >240 mg/dL High Risk Glucose [Mass/Vol] 98 mg/dL 74-106 [facility] Potassium [Moles/Vol] 4.3 mmol/L 3.5-5.1 [facility] Protein [Mass/Vol] 7.2 g/dL 6.4-8.2 [facility] Sodium [Moles/Vol] 130 mmol/L 136-145 [facility] Triglyceride [Mass/Vol] 55 mg/dL <199 [facility] Comment on above: The drugs N-Acetylcy steine and Metamizole may falsely depress this assay.Serum Triglycerides Reference Interval Normal <150 mg/dL Borderline high 150 - 199 mg/dL High 200 - 499 mg/dL Very High > or = 500 mg/dL Direct bilirubinOrdered By: Dr. Blair on 03-04-2023 Bilirubin.direct [Mass/Vol] 0.21 mg/dL 0.00-0.30 [facility] Laboratory - Chemistry and C hemistry - challengeOrdered By: Dr. Blair on 03-04-2023 ALP [Catalytic activity/Vol] 78 U/L 45-117 [facility] ALT [Catalytic activity/Vol] 27 U/L 16-61 [facility] CO2 [Moles/Vol] 29.0 mmol/L 21.0-32.0 [facility] Globulin (S) [Mass/Vol] 3.5 g/dL 2.2-4.2 [facility] Urea nitrogen/Creatinine [Mass ratio] 15.3 mg/mg 10-20 [facility] No Panel InformationOrdered By: Dr. Blair on 03-04-2023 Estimated GFR (MDRD) Amer 129 mL/min >60 [facility] Comment on above: GFR Calc Estimated GFR (MDRD) Non-Af Amer 106 mL/min >60 [facility] Comment on above: Non- GFR Calc Serum or plasma albumin adelso urement (mass/volume)Ordered By: Dr. Blair on 03-04-2023 Albumin [Mass/Vol] 3.7 g/dL 3.2-5.0 [facility] Serum or plasma calcium adelso urement (mass/volume)Ordered By: Dr. Blair on 03-04-2023 Calcium [Mass/Vol] 9.2 mg/dL 8.5-10.1 [facility] Serum or plasma cholesterol in HDL measurement (mass/volume)Ordered By: Dr. Blair on 03-04-2023 Cholesterol in HDL [Mass/Vol] 62 mg/dL >40 [facility] Comment on above: The drugs N-Acetylcy steine and Metamizole may falsely depress this assay. Reference Range HDL <40 mg/dL Low HDL Cholesterol HDL >or= 60 mg/dL High HDL Cholesterol Serum or plasma cholesterol in VLDL measurement (mass/volume)Ordered By: Dr. Blair on 03-04-2023 Cholesterol in VLDL [Mass/Vol] 11 mg/dL 5-40 [facility] Serum or plasma creatinine m easurement (mass/volume)Ordered By: Dr. Blair on 03-04-2023 Creatinine [Mass/Vol] 0.78 mg/dL 0.70-1.30 [facility] Comment on above: The validity of the calculated GFR & GFRAA in patients over 70 years has not been determined. Clinical correlation is essential. Serum or plasma low density lipoprotein (LDL) cholesterol measurement (mass/volume)Ordered By: Dr. Blair on 03-04-2023 Cholesterol in LDL [Mass/Vol] 76 mg/dL 0-130 [facility] Serum or plasma urea nitroge n measurement (mass/volume)Ordered By: Dr. Blair on 03-04-2023 Urea nitrogen [Mass/Vol] 12 mg/dL 7-18 [facility] Thin prep Papanicolaou smear with manual screeningOrdered By: Dr. Blair on 03-04-2023 Thin prep Papanicolaou smear with manual screening 19 U/L 15-37 [facility] Thin prep Papanicolaou smear with manual screening 5 5-15 [facility] Basophil percentageon 2022 Chloride [Moles/Vol] 97 mmol/L 98-107 [facility] Work Phone: Glucose [Mass/Vol] 98 mg/dL 74-106 [facility] Work Phone: Potassium [Moles/Vol] 4.2 mmol/L 3.5-5.1 [facility] Work Phone: Sodium [Moles/Vol] 129 mmol/L 136-145 [facility] Work Phone: Laboratory - Chemistry and C hemistry - challengeon 11-07-2022 CO2 [Moles/Vol] 25.0 mmol/L 21.0-32.0 [facility] Work Phone: [phone] Urea nitrogen/Creatinine [Mass ratio] 16.1 mg/mg 10-20 [facility] Work Phone: No Panel Informationon 11-07 Estimated GFR (MDRD) Amer 136 mL/min >60 [facility] Work Phone: Comment on above: GFR Calc Estimated GFR (MDRD) Non-Af Amer 112 mL/min >60 [facility] Work Phone: Comment on above: Non- GFR Calc Serum or plasma calcium adelso urement (mass/volume)on 11-07-2022 Calcium [Mass/Vol] 9.1 mg/dL 8.5-10.1 [facility] Work Phone: Serum or plasma creatinine m easurement (mass/volume)on 11-07-2022 Creatinine [Mass/Vol] 0.75 mg/dL 0.70-1.30 [facility] Work Phone: Comment on above: The validity of the calculated GFR & GFRAA in patients over 70 years has not been determined. Clinical correlation is essential. Serum or plasma urea nitroge n measurement (mass/volume)on 11-07-2022 Urea nitrogen [Mass/Vol] 12 mg/dL 7-18 [facility] Work Phone: Thin prep Papanicolaou smear with manual screeningon 11-07-2022 Thin prep Papanicolaou smear with manual screening 7 5-15 [facility] Work Phone: [phone] Basophil percentageon 2021 Bilirubin [Mass/Vol] 0.70 mg/dL 0.20-1.00 [facility] Work Phone: [phone] Comment on above: For patients on eltr ombopag therapy, use of Dimension [place] TBIL is not recommended. Cholesterol [Mass/Vol] 158 mg/dL <200 [facility] Work Phone: [phone] Comment on above: <200 mg/dL Desirable 200-240 mg/dL Borderline >240 mg/dL High Risk Protein [Mass/Vol] 7.4 g/dL 6.4-8.2 [facility] Work Phone: [phone] Triglyceride [Mass/Vol] 59 mg/dL <199 [facility] Work Phone: [phone] Comment on above: The drugs N-Acetylcy steine and Metamizole may falsely depress this assay.Serum Triglycerides Reference Interval Normal <150 mg/dL Borderline high 150 - 199 mg/dL High 200 - 499 mg/dL Very High > or = 500 mg/dL Direct bilirubinon Bilirubin.direct [Mass/Vol] 0.20 mg/dL 0.00-0.30 [facility] Work Phone: [phone] Laboratory - Chemistry and C hemistry - challengeon 07-09-2022 ALP [Catalytic activity/Vol] 84 U/L 45-117 [facility] Work Phone: [phone] ALT [Catalytic activity/Vol] 25 U/L 16-61 [facility] Work Phone: [phone] Globulin (S) [Mass/Vol] 3.7 g/dL 2.2-4.2 [facility] Work Phone: [phone] Serum or plasma albumin adelso urement (mass/volume)on 07-09-2022 Albumin [Mass/Vol] 3.7 g/dL 3.2-5.0 [facility] Work Phone: [phone] Serum or plasma cholesterol in HDL measurement (mass/volume)on 07-09-2022 Cholesterol in HDL [Mass/Vol] 62 mg/dL >40 [facility] Work Phone: [phone] Comment on above: The drugs N-Acetylcy steine and Metamizole may falsely depress this assay. Reference Range HDL <40 mg/dL Low HDL Cholesterol HDL >or= 60 mg/dL High HDL Cholesterol Serum or plasma cholesterol in VLDL measurement (mass/volume)on 07-09-2022 Cholesterol in VLDL [Mass/Vol] 12 mg/dL 5-40 [facility] Work Phone: Serum or plasma low density lipoprotein (LDL) cholesterol measurement (mass/volume)on 07-09-2022 Cholesterol in LDL [Mass/Vol] 84 mg/dL 0-130 [facility] Work Phone: Thin prep Papanicolaou smear with manual screeningon 07-09-2022 Thin prep Papanicolaou smear with manual screening 20 U/L 15-37 [facility] Work Phone: Basophil percentageon 2021 Chloride [Moles/Vol] 94 mmol/L 98-107 [facility] Work Phone: Glucose [Mass/Vol] 100 mg/dL 74-106 [facility] Work Phone: Comment on above: Fasting Glucose resu lt from 100 to 125 mg/dL suggests IMPAIRED HOMEOSTASIS per A.D.A. criteria. Potassium [Moles/Vol] 4.0 mmol/L 3.5-5.1 [facility] Work Phone: Sodium [Moles/Vol] 129 mmol/L 136-145 [facility] Work Phone: Laboratory - Chemistry and C hemistry - challengeon 02-13-2022 CO2 [Moles/Vol] 27.0 mmol/L 21.0-32.0 [facility] Work Phone: Urea nitrogen/Creatinine [Mass ratio] 16.3 mg/mg 10-20 [facility] Work Phone: No Panel Informationon 02-13 Estimated GFR (MDRD) Amer 107 mL/min >60 [facility] Work Phone: Comment on above: GFR Calc Estimated GFR (MDRD) Non-Af Amer 89 mL/min >60 [facility] Work Phone: Comment on above: Non- GFR Calc Serum or plasma calcium adelso urement (mass/volume)on 02-13-2022 Calcium [Mass/Vol] 8.9 mg/dL 8.5-10.1 [facility] Work Phone: Serum or plasma creatinine m easurement (mass/volume)on 02-13-2022 Creatinine [Mass/Vol] 0.92 mg/dL 0.70-1.30 [facility] Work Phone: Comment on above: The validity of the calculated GFR & GFRAA in patients over 70 years has not been determined. Clinical correlation is essential. Serum or plasma urea nitroge n measurement (mass/volume)on 02-13-2022 Urea nitrogen [Mass/Vol] 15 mg/dL 7-18 [facility] Work Phone: Thin prep Papanicolaou smear with manual screeningon 02-13-2022 Thin prep Papanicolaou smear with manual screening 8 5-15 [facility] Work Phone: Basophil percentageon 2021 Chloride [Moles/Vol] 93 mmol/L 98-107 [facility] Work Phone: Glucose [Mass/Vol] 102 mg/dL 74-106 [facility] Work Phone: Comment on above: Fasting Glucose resu lt from 100 to 125 mg/dL suggests IMPAIRED HOMEOSTASIS per A.D.A. criteria. Potassium [Moles/Vol] 4.2 mmol/L 3.5-5.1 [facility] Work Phone: Sodium [Moles/Vol] 126 mmol/L 136-145 [facility] Work Phone: Laboratory - Chemistry and C hemistry - challengeon 11-16-2021 CO2 [Moles/Vol] 26.0 mmol/L 21.0-32.0 [facility] Work Phone: Urea nitrogen/Creatinine [Mass ratio] 12.6 mg/mg 10- [facility] Work Phone: [phone] No Panel Informationon 11-16 Estimated GFR (MDRD) Amer 86 mL/min >60 [facility] Work Phone: Comment on above: GFR Calc Estimated GFR (MDRD) Non-Af Amer 71 mL/min >60 [facility] Work Phone: Comment on above: Non- GFR Calc Serum or plasma calcium adelso urement (mass/volume)on 11-16-2021 Calcium [Mass/Vol] 8.6 mg/dL 8.5-10.1 [facility] Work Phone: Serum or plasma creatinine m easurement (mass/volume)on 11-16-2021 Creatinine [Mass/Vol] 1.11 mg/dL 0.70-1.30 [facility] Work Phone: Comment on above: The validity of the calculated GFR & GFRAA in patients over 70 years has not been determined. Clinical correlation is essential. Serum or plasma urea nitroge n measurement (mass/volume)on 11-16-2021 Urea nitrogen [Mass/Vol] 14 mg/dL 7-18 [facility] Work Phone: Thin prep Papanicolaou smear with manual screeningon 11-16-2021 Thin prep Papanicolaou smear with manual screening 7 5-15 [facility] Work Phone: Basophil percentageon 2021 Chloride [Moles/Vol] 88 mmol/L 98-107 [facility] Work Phone: Glucose [Mass/Vol] 91 mg/dL 74-106 [facility] Work Phone: Comment on above: Please note revised GLUCOSE reference range effective 2017. Potassium [Moles/Vol] 4.0 mmol/L 3.5-5.1 [facility] Work Phone: Sodium [Moles/Vol] 123 mmol/L 136-145 [facility] Work Phone: Laboratory - Chemistry and C hemistry - challengeon 11-02-2021 CO2 [Moles/Vol] 26.0 mmol/L 21.0-32.0 [facility] Work Phone: Urea nitrogen/Creatinine [Mass ratio] 11.9 mg/mg 10-20 [facility] Work Phone: No Panel Informationon 11-02 Estimated GFR (MDRD) Amer 134 mL/min >60 [facility] Work Phone: Comment on above: GFR Calc Estimated GFR (MDRD) Non-Af Amer 110 mL/min >60 [facility] Work Phone: Comment on above: Non- GFR Calc Serum or plasma calcium adelso urement (mass/volume)on 11-02-2021 Calcium [Mass/Vol] 8.8 mg/dL 8.5-10.1 [facility] Work Phone: Serum or plasma creatinine m easurement (mass/volume)on 11-02-2021 Creatinine [Mass/Vol] 0.76 mg/dL 0.70-1.30 [facility] Work Phone: Comment on above: The validity of the calculated GFR & GFRAA in patients over 70 years has not been determined. Clinical correlation is essential. Serum or plasma urea nitroge n measurement (mass/volume)on 11-02-2021 Urea nitrogen [Mass/Vol] 9 mg/dL 7-18 [facility] Work Phone: Thin prep Papanicolaou smear with manual screeningon 11-02-2021 Thin prep Papanicolaou smear with manual screening 9 5-15 [facility] Work Phone: Basophil percentageon 2020 Chloride [Moles/Vol] 88 mmol/L 98-107 [facility] Work Phone: Glucose [Mass/Vol] 101 mg/dL 74-106 [facility] Work Phone: Comment on above: Fasting Glucose resu lt from 100 to 125 mg/dL suggests IMPAIRED HOMEOSTASIS per A.D.A. criteria.Please note revised GLUCOSE reference range effective 2017. Potassium [Moles/Vol] 4.1 mmol/L 3.5-5.1 [facility] Work Phone: Sodium [Moles/Vol] 121 mmol/L 136-145 [facility] Work Phone: Laboratory - Chemistry and C hemistry - challengeon 10-26-2021 CO2 [Moles/Vol] 25.0 mmol/L 21.0-32.0 [facility] Work Phone: Urea nitrogen/Creatinine [Mass ratio] 10.9 mg/mg 10-20 [facility] Work Phone: No Panel Informationon 10-26 Estimated GFR (MDRD) Amer 139 mL/min >60 [facility] Work Phone: Comment on above: GFR Calc Estimated GFR (MDRD) Non-Af Amer 115 mL/min >60 [facility] Work Phone: Comment on above: Non- GFR Calc Serum or plasma calcium adelso urement (mass/volume)on 10-26-2021 Calcium [Mass/Vol] 9.0 mg/dL 8.5-10.1 [facility] Work Phone: Serum or plasma creatinine m easurement (mass/volume)on 10-26-2021 Creatinine [Mass/Vol] 0.73 mg/dL 0.70-1.30 [facility] Work Phone: Comment on above: The validity of the calculated GFR & GFRAA in patients over 70 years has not been determined. Clinical correlation is essential. Serum or plasma urea nitroge n measurement (mass/volume)on 10-26-2021 Urea nitrogen [Mass/Vol] 8 mg/dL 7-18 [facility] Work Phone: Thin prep Papanicolaou smear with manual screeningon 10-26-2021 Thin prep Papanicolaou smear with manual screening 8 5-15 [facility] Work Phone: Laboratory - Microbiology an d Antimicrobial susceptibilityon 10-25-2021 SARS-CoV-2 (COVID-19) RNA RADHA+probe Ql (Unsp spec) Negative Not Detect [facility] Work Phone: Comment on above: Normal Reference Ran ge: Not DetectedMethod:(RT-PCR) real-time reverse transcriptase PCRLuminex HENRIETTA Instrument*The Food and Drug Administration (FDA) has issued an Emergency Use Authorization (EAU) for the Aviacode SARS-CoV-2 Assay for the rapid detection of the virus that causes COVID-19. This test has been validated, but the FDAs independent review of this validation is pending.*Negative results do not preclude infection and should not be used as the sole basis for treatment or patient management. Optimum specimen types and timing for peak viral levels during infections caused by SARS-CoV-2 have not been determined. Collection of multiple specimens from the same patient may be necessary to detect the virus. The possibility of a false negative result should be considered if the patient has clinical presentation or has had recent exposure. Office Visiton 05-17-2017 Documentation of current medications (procedure) Done Invalid Interpretation Code [employer] Phone: [phone] Fall risk assessment No Invalid Interpretation Code [employer] Phone: [phone] Protein mass conc Done [facility] Work Phone: [phone] Clinical Lists Update: Prelo cio 05-14-2017 Left ventricular Ejection fraction 55 % Invalid Interpretation Code [employer] Phone: [phone] Lab Report: Lipid Profileon 05-03-2017 Cholesterol 167 mg/dL Invalid Interpretation Code 200 [facility] Work Phone: [phone] HDL Cholesterol 68 mg/dL Invalid Interpretation Code [employer] Phone: [phone] LDL Cholesterol 88 mg/dL Invalid Interpretation Code 0-130 [facility] Work Phone: [phone] Triglyceride 55 mg/dL Invalid Interpretation Code [facility] Work Phone: [phone] very low density lipoproteins 11 mg/dL Invalid Interpretation Code 5-40 [employer] Phone: [phone] Lab Report: Liver Profileon 05-03-2017 Alanine aminotransferase (ALT) 25 U/L Invalid Interpretation Code 12-78 [facility] Work Phone: [phone] Albumin 3.8 g/dL Invalid Interpretation Code 3.4-5.0 [facility] Work Phone: [phone] Alkaline phosphatase (ALP) 87 U/L Invalid Interpretation Code 45-117 [facility] Work Phone: [phone] ALP enzyme act/vol (Bld) 87 U/L 45-117 [facility] Work Phone: [phone] Aspartate aminotransferase (AST) 18 U/L Invalid Interpretation Code 15-37 [facility] Work Phone: [phone] Bilirubin (direct) 0.19 mg/dL Invalid Interpretation Code 0.00-0.30 [facility] Work Phone: [phone] Bilirubin (total) 0.70 mg/dL Invalid Interpretation Code 0.20-1.00 [facility] Work Phone: [phone] Globulin 3.9 g/dL High 2.3-3.5 [facility] Work Phone: [phone] Globulin mass conc (S) 3.9 g/dL High 2.3-3.5 [facility] Work Phone: [phone] Protein 7.7 g/dL Invalid Interpretation Code 6.4-8.2 [facility] Work Phone: [phone] Office Visiton 11-16-2016 Documentation of current medications (procedure) Done Invalid Interpretation Code [facility] Phone: [phone] Protein mass conc Done [facility] Work Phone: [phone] Tobacco smoking status NHIS Former smoker [facility] Work Phone: [phone] Tobacco use [facility] Former smoker Invalid Interpretation Code [facility] Work Phone: [phone] Replaced Document: Judy E CG Observationson 11-16-2016 EKG QRS axis 64 deg Invalid Interpretation Code [facility] Work Phone: [phone] electrocardiogram interpretation Sinus Rhythm WITHIN NORMAL LIMITS Invalid Interpretation Code [facility] Work Phone: [phone] GE use only - for [employer] import when terms are not otherwise specified 389 ms Invalid Interpretation Code [facility] Work Phone: [phone] Interpretation Sinus Rhythm WITHIN NORMAL LIMITS Invalid Interpretation Code [facility] Work Phone: [phone] P [place] 54 deg Invalid Interpretation Code [facility] Work Phone: [phone] P wave axis, electrocardiogram 54 deg Invalid Interpretation Code [facility] Work Phone: [phone] MS Interval 184 ms Invalid Interpretation Code [facility] Work Phone: [phone] MS interval, electrocardiogram 184 ms Invalid Interpretation Code [facility] Work Phone: [phone] Pulse (Heart Rate) 64 /min Invalid Interpretation Code [facility] Work Phone: [phone] QRS axis, electrocardiogram 64 deg Invalid Interpretation Code [facility] Work Phone: [phone] QRS Duration 100 ms Invalid Interpretation Code [facility] Work Phone: [phone] QRS duration, electrocardiogram 100 ms Invalid Interpretation Code [facility] Work Phone: [phone] QT Interval new path ms Invalid Interpretation Code [facility] Work Phone: [phone] QT interval, electrocardiogram new path ms Invalid Interpretation Code [facility] Work Phone: [phone] QTc Rausch 389 ms Invalid Interpretation Code [facility] Work Phone: [phone] T [place] 53 deg Invalid Interpretation Code [facility] Work Phone: [phone] T wave axis, electrocardiogram 53 deg Invalid Interpretation Code [facility] Work Phone: [phone] Clinical Lists Update: Prelo cio 11-14-2016 Left ventricular Ejection fraction 55 % Invalid Interpretation Code [facility] Work Phone: [phone]) Office Visit: Cold / Flu sym ptomson 05-17-2016 Tobacco smoking status NHIS Never Invalid Interpretation Code [facility] Work Phone: [phone] Lab Report: (P) Urinalysis, Completeon 04-27-2016 Albumin Ql (U) 15 High Negative [facility] Work Phone: [phone] Bilirubin Ql (U) Negative Invalid Interpretation Code Negative [facility] Work Phone: [phone] Ketones mass conc (U) Negative Negative [facility] Work Phone: [phone] NITRITE UR Negative Invalid Interpretation Code Negative [facility] Work Phone: [phone] Nitrite Urine Negative Invalid Interpretation Code Negative [facility] Work Phone: [phone] Occult Blood, urine 150 High Negative [facility] Work Phone: [phone] OCCULT BLOOD-UR 150 High Negative [facility] Work Phone: [phone] pH (U) 7.0 [pH] 5.0 - 8.0 [facility] Work Phone: [phone] specific gravity, urine 1.010 Invalid Interpretation Code 1.002-1.030 [facility] Work Phone: [phone] Urine, bilirubin presence Negative Invalid Interpretation Code Negative [facility] Work Phone: [phone] Urine, clarity Clear Invalid Interpretation Code Clear [facility] Work Phone: [phone] Urine, color Yellow Invalid Interpretation Code Yellow [facility] Work Phone: [phone] Urine, glucose presence Normal mg/dl Invalid Interpretation Code Normal [facility] Work Phone: [phone] Urine, ketones presence Negative Invalid Interpretation Code Negative [facility] Work Phone: [phone] Urine, leukocyte esterase presence 100 High Negative [facility] Work Phone: [phone] Urine, pH 7.0 [pH] Invalid Interpretation Code 5.0 - 8.0 [facility] Work Phone: [phone] Urine, protein 15 mg/dL High Negative [facility] Work Phone: [phone] UROBILI Normal mg/dl Invalid Interpretation Code Normal [facility] Work Phone: [phone] urobilinogen, urine, by dipstick Normal mg/dl Invalid Interpretation Code Normal [facility] Work Phone: [phone] Lab Report: CT/NG [facility] BY PCR on 04-27-2016 Chlamydia trachomatis DNA [Presence] in Urine by Probe and target amplification method Negative Invalid Interpretation Code Negative [facility] Work Phone: [phone] Neisseria gonorrhoeae presence Negative Invalid Interpretation Code Negative [facility] Work Phone: [phone] Lab Report: Comprehensive Ma tabolic Profilon 04-27-2016 Albumin/Globulin Ratio 1.1 {ratio} Invalid Interpretation Code 0.9-2.4 [facility] Work Phone: [phone] Anion gap 8 mmol/L Invalid Interpretation Code 5-15 [facility] Work Phone: [phone] Anion gap molar conc 8 mmol/L 5-[address] [facility] Work Phone: [phone] BUN/Creatinine Ratio 16.3 RATIO Invalid Interpretation Code 10-20 [facility] Work Phone: [phone] Calcium 8.7 mg/dL Invalid Interpretation Code 8.5-10.1 [facility] Work Phone: [phone] Chloride 100 mmol/L Invalid Interpretation Code 98-107 [facility] Work Phone: [phone] CO2 25.0 mmol/L Invalid Interpretation Code 21.0-32.0 [facility] Work Phone: [phone] CO2 ppres (BldV) 25.0 mmol/L 21.0-32.0 [facility] Work Phone: [phone] Creatinine 0.68 mg/dL Low 0.70-1.30 [facility] Work Phone: [phone] eGFR (non-black) 129 mL/min/{1.73_m2} Invalid Interpretation Code >60 [facility] Work Phone: [phone] eGFR (non-black) 156 mL/min/{1.73_m2} Invalid Interpretation Code >60 [facility] Work Phone: [phone] EST GFR - AA 156 mL/min >60 [facility] Work Phone: [phone] Glucose 83 mg/dL Invalid Interpretation Code 70-110 [facility] Work Phone: [phone] Glucose mass conc 83 mg/dL Invalid Interpretation Code 70-110 [facility] Work Phone: [phone] Potassium 4.1 mmol/L Invalid Interpretation Code 3.5-5.1 [facility] Work Phone: [phone] Sodium 133 mmol/L Low 136-145 [facility] Work Phone: [phone] Urea nitrogen 11 mg/dL Invalid Interpretation Code 7-18 [facility] Work Phone: [phone] Lab Report: Urinalysis, Comp leteon 04-27-2016 Bacteria LM.HPF #/area (Urine sed) 0 SEEN /hpf None Seen [facility] Work Phone: [phone] Mucus Ql (Urine sed) [address] [facility] Work Phone: [phone] Urine, bacteria in sediment 0 /[HPF] Invalid Interpretation Code None Seen [facility] ([employer] Work Phone: [phone] Urine, epithelial cells in sediment 0 SEEN Invalid Interpretation Code 0-5 [facility] Work Phone: [phone] Urine, erythrocytes in sediment by volume 0-5 SEEN Invalid Interpretation Code 0-5 [facility] Work Phone: [phone] Urine, mucus presence in sediment 0 SEEN Invalid Interpretation Code [facility] Work Phone: [phone] WBC #/vol (Bld) 25-50 SEEN 0-5 [facility] Work Phone: [phone] WBC (Leukocytes) 25-50 SEEN Invalid Interpretation Code 0-5 [facility] Work Phone: [phone] Office Visit: Possible UTIon 04-19-2016 blood in urine (hemoglobin) by dipstick 1+ Invalid Interpretation Code [facility] Work Phone: [phone] Glucose Test strip mass conc (U) Negative [facility] Work Phone: [phone] Nitrite Ql (U) Negative [facility] Work Phone: [phone] Urine, appearance clear Invalid Interpretation Code [facility] Work Phone: [phone] Urine, glucose presence Negative Invalid Interpretation Code [facility] Work Phone: [phone] Urine, nitrite presence Negative Invalid Interpretation Code [facility] Work Phone: [phone] Urine, urobilinogen presence Negative Invalid Interpretation Code [facility] Work Phone: [phone] Clinical Lists Update: Prelo cio 08-19-2015 LDL/HDL ratio, serum 1.3 Invalid Interpretation Code [facility] Work Phone: [phone] Office Visiton 01-07-2015 cardiac risk group C Invalid Interpretation Code [facility] Work Phone: [phone] General cardiovascular disease 10Y risk [#] [place]fr[place].Rneuka'Agosanjuana N/A Invalid Interpretation Code [facility] Work Phone: Replaced Document: Midmark E CG Observationson 04-29-2013 Pulse (Heart Rate) 391 ms Invalid Interpretation Code [facility] Work Phone: [phone] Clinical Lists Update: Prelo cio 02-08-2012 Hematocrit (HCT) 39.7 % Invalid Interpretation Code [facility] Work Phone: [phone] Hematocrit Volume Fraction (Bld) 39.7 % [facility] Work Phone: [phone] Hemoglobin (HGB) 13.4 g/dL Invalid Interpretation Code [facility] Work Phone: [phone] Platelets 213 10*3/mm3 Invalid Interpretation Code [facility] Work Phone: [phone] Platelets #/vol (Bld) 213 10*3/mm3 [facility] Work Phone: [phone] WBC #/vol (Bld) 5.9 10*3/uL [facility] Work Phone: [phone] WBC (Leukocytes) 5.9 10*3/uL Invalid Interpretation Code [facility] Work Phone: [phone] Vital Signs Date Time Vital Sign Value Performing Clinician [facility] 03-02-2025 08:18-0400 Body height 177.[address] Jeferson Coffey MD Work Phone: [facility] 03-02-2025 08:18-0400 Body mass index (BMI) [Ratio] 21.7 kg/m2 Dr. Jeferson Coffey MD Work Phone: [facility] 03-02-2025 08:18-0400 Body weight 68.[address] Jeferson Coffey MD Work Phone: [facility] 03-02-2025 08:18-0400 Diastolic blood pressure 89 mm[Hg] Dr. Jeferson Coffey MD Work Phone: [facility] 03-02-2025 08:18-0400 Heart rate 80 /min Dr. Jeferson Coffey MD Work Phone: [facility] 03-02-2025 08:18-0400 Respiratory rate 14 /min Dr. Jeferson Coffey MD Work Phone: [facility] 03-02-2025 08:18-0400 Systolic blood pressure 156 mm[Hg] Dr. Jeferson Coffey MD Work Phone: [facility] 11-18-2024 08:54-0500 Body mass index (BMI) [Ratio] 22.8 kg/m2 Rubio Grimes MD Work Phone: [facility] 11-18-2024 08:54-0500 Body weight 67.13 kg Rubio Grimes MD Work Phone: [facility] 11-18-2024 08:54-0500 Diastolic blood pressure 78 mm[Hg] Rubio Grimes MD Work Phone: [facility] 11-18-2024 08:54-0500 Heart rate 78 /min Rubio Grimes MD Work Phone: [facility] 11-18-2024 08:54-0500 Systolic blood pressure 146 mm[Hg] Rubio Grimes MD Work Phone: [facility] 10-08-2024 09:43-0500 Body temperature 98.4 [degF] Dr. Jeferson Coffey MD Work Phone: [facility] 10-08-2024 09:43-0500 Body weight 66.[address] Jeferson Coffey MD Work Phone: [facility] 10-08-2024 09:43-0500 Diastolic blood pressure 76 mm[Hg] Dr. Jeferson Coffey MD Work Phone: [facility] 10-08-2024 09:43-0500 Heart rate 70 /min Dr. Jeferson Coffey MD Work Phone: [facility] 10-08-2024 09:43-0500 Respiratory rate 15 /min Dr. Jeferson Coffey MD Work Phone: [facility] 10-08-2024 09:43-0500 SaO2% (BldA) [Mass fraction] 96 % Dr. Jeferson Coffey MD Work Phone: [facility] 10-08-2024 09:43-0500 Systolic blood pressure 156 mm[Hg] Dr. Jeferson Coffey MD Work Phone: [facility] 08-13-2024 08:55-0400 Body mass index (BMI) [Ratio] 22.03 kg/m2 Hair Adames APRN.FIREBOAT OPERATOR Work Phone: [facility] 08-13-2024 08:55-0400 Body weight 64.86 kg Hair Adames APRN.FIREBOAT OPERATOR Work Phone: [facility] 08-13-2024 08:55-0400 Diastolic blood pressure 87 mm[Hg] Hair Adames APRN.FIREBOAT OPERATOR Work Phone: [facility] 08-13-2024 08:55-0400 Heart rate 80 /min Hair Adames APRN.FIREBOAT OPERATOR Work Phone: [facility] 08-13-2024 08:55-0400 Systolic blood pressure 173 mm[Hg] Hair Adames APRN.FIREBOAT OPERATOR Work Phone: [facility] 05-21-2024 08:52-0400 Body mass index (BMI) [Ratio] 22.07 kg/m2 Hair Adames APRN.FIREBOAT OPERATOR Work Phone: [facility] 05-21-2024 08:52-0400 Body weight 65 kg Hair Adames APRN.FIREBOAT OPERATOR Work Phone: [facility] 05-21-2024 08:52-0400 Diastolic blood pressure 78 mm[Hg] Hair Adames APRN.FIREBOAT OPERATOR Work Phone: [facility] 05-21-2024 08:52-0400 Heart rate 71 /min Hair Adames APRN.FIREBOAT OPERATOR Work Phone: [facility] 05-21-2024 08:52-0400 Systolic blood pressure 146 mm[Hg] Hair Adames APRN.FIREBOAT OPERATOR Work Phone: [facility] 04-07-2024 13:27-0400 Body height 171.6 cm Pulm Wstr Work Phone: [facility] 04-07-2024 13:27-0400 Body mass index (BMI) [Ratio] 21.87 kg/m2 Pulm Wstr Work Phone: [facility] 04-07-2024 13:27-0400 Body weight 64.41 kg Pulm Wstr Work Phone: [facility] 04-07-2024 13:27-0400 Diastolic blood pressure 75 mm[Hg] Pulm Wstr Work Phone: [facility] 04-07-2024 13:27-0400 Heart rate 86 /min Pulm Wstr Work Phone: [facility] 04-07-2024 13:27-0400 Respiratory rate 14 /min Pulm Wstr Work Phone: [facility] 04-07-2024 13:27-0400 SaO2% (BldA) [Mass fraction] 95 % Pulm Wstr Work Phone: [facility] 04-07-2024 13:27-0400 Systolic blood pressure 129 mm[Hg] Pulm Wstr Work Phone: [facility] 03-30-2024 12:15-0400 Body height 177.8 cm Ramon Samuel MD Work Phone: [facility] 03-30-2024 12:15-0400 Body mass index (BMI) [Ratio] 20.88 kg/m2 Ramon Samuel MD Work Phone: [facility] 03-30-2024 12:15-0400 Body weight 66 kg Ramon Samuel MD Work Phone: [facility] 03-30-2024 12:15-0400 Diastolic blood pressure 66 mm[Hg] Ramon Samuel MD Work Phone: [facility] 03-30-2024 12:15-0400 Heart rate 72 /min Ramon Samuel MD Work Phone: [facility] 03-30-2024 12:15-0400 SaO2% (BldA) [Mass fraction] 98 % Ramon Samuel MD Work Phone: [facility] 03-30-2024 12:15-0400 Systolic blood pressure 146 mm[Hg] Ramon Samuel MD Work Phone: [facility] 02-19-2024 08:06-0400 Body height 177.8 cm Rubio Grimes MD Work Phone: [facility] 02-19-2024 08:06-0400 Body mass index (BMI) [Ratio] 20.47 kg/m2 Rubio Grimes MD Work Phone: [facility] 02-19-2024 08:06-0400 Body weight 64.7 kg Rubio Grimes MD Work Phone: [facility] 02-19-2024 08:06-0400 Diastolic blood pressure 79 mm[Hg] Rubio Grimes MD Work Phone: [facility] 02-19-2024 08:06-0400 Heart rate 70 /min Rubio Grimes MD Work Phone: [facility] 02-19-2024 08:06-0400 Respiratory rate 16 /min Rubio Grimes MD Work Phone: [facility] 02-19-2024 08:06-0400 Systolic blood pressure 131 mm[Hg] Rubio Griems MD Work Phone: [facility] 01-03-2024 14:15-0500 Body temperature 97.6 [degF] Dr. Rick Gaffney Work Phone: [facility] 01-03-2024 14:15-0500 Diastolic blood pressure 86 mm[Hg] Dr. Rick Gaffney Work Phone: [facility] 01-03-2024 14:15-0500 Heart rate 65 /min Dr. Rick Gaffney Work Phone: [facility] 01-03-2024 14:15-0500 Respiratory rate 16 /min Dr. Rick Gaffney Work Phone: [facility] 01-03-2024 14:15-0500 SaO2% (BldA) [Mass fraction] 99 % Dr. Rick Gaffney Work Phone: [facility] 01-03-2024 14:15-0500 Systolic blood pressure 143 mm[Hg] Dr. Rick Gaffney Work Phone: [facility] 01-03-2024 04:29-0500 Body mass index (BMI) [Ratio] 20.2 kg/m2 Dr. Rick Gaffney Work Phone: [facility] 01-03-2024 04:29-0500 Body weight [address] Rick Gaffney Work Phone: [facility] 01-02-2024 14:20-0500 Body height 177.[address] Rick Gaffney Work Phone: [facility] 01-01-2024 17:12-0500 Body temperature 96.8 [degF] Dr. Rick Gaffney Work Phone: [facility] 01-01-2024 17:12-0500 Diastolic blood pressure 75 mm[Hg] Dr. Rick Gaffney Work Phone: [facility] 01-01-2024 17:12-0500 Heart rate 65 /min Dr. Rick Gaffney Work Phone: [facility] 01-01-2024 17:12-0500 Respiratory rate 16 /min Dr. Rick Gaffney Work Phone: [facility] 01-01-2024 17:12-0500 SaO2% (BldA) [Mass fraction] 97 % Dr. Rick Gaffney Work Phone: [facility] 01-01-2024 17:12-0500 Systolic blood pressure 150 mm[Hg] Dr. Rick Gaffney Work Phone: [facility] 01-01-2024 12:07-0500 Body mass index (BMI) [Ratio] 20.7 kg/m2 Dr. Rick Gaffney Work Phone: [facility] 01-01-2024 12:07-0500 Body weight 65.[address] Rick Gaffney Work Phone: [facility] 01-01-2024 11:51-0500 Body height 177.[address] Rick Gaffney Work Phone: [facility] 12-29-2023 09:39-0500 Body mass index (BMI) [Ratio] 20 kg/m2 Dr. Rick Gaffney Work Phone: [facility] 12-29-2023 09:39-0500 Body temperature 100 [degF] Dr. Rick Gaffney Work Phone: [facility] 12-29-2023 09:39-0500 Body weight 63.[address] Rick Gaffney Work Phone: [facility] 12-29-2023 09:39-0500 Diastolic blood pressure 72 mm[Hg] Dr. Rick Gaffney Work Phone: [facility] 12-29-2023 09:39-0500 Heart rate 98 /min Dr. Rick Gaffney Work Phone: [facility] 12-29-2023 09:39-0500 Respiratory rate 12 /min Dr. Rick Gaffney Work Phone: [facility] 12-29-2023 09:39-0500 SaO2% (BldA) [Mass fraction] 97 % Dr. Rick Gaffney Work Phone: [facility] 12-29-2023 09:39-0500 Systolic blood pressure 154 mm[Hg] Dr. Rick Gaffney Work Phone: [facility] 07-11-2023 15:39-0400 Diastolic blood pressure 82 mm[Hg] Dr. Rick Gaffney Work Phone: [facility] 07-11-2023 15:39-0400 Systolic blood pressure 148 mm[Hg] Dr. Rick Gaffney Work Phone: [facility] 07-11-2023 15:28-0400 Body height 175.[address] Rick Gaffney Work Phone: [facility] 07-11-2023 15:28-0400 Body mass index (BMI) [Ratio] 21.9 kg/m2 Dr. Rick Gaffney Work Phone: [facility] 07-11-2023 15:28-0400 Body weight 67.[address] Rick Gaffney Work Phone: [facility] 07-11-2023 15:28-0400 Heart rate 76 /min Dr. Rick Gaffney Work Phone: [facility] 07-11-2023 15:28-0400 Respiratory rate 20 /min Dr. Rick Gaffney Work Phone: [facility] 07-16-2022 15:58-0400 Body height 175.[address] Rick Gaffney Work Phone: [facility] Work Phone: 07-16-2022 15:58-0400 Body mass index (BMI) [Ratio] 22.4 kg/m2 Dr. Rick Gaffney Work Phone: [facility] Work Phone: 07-16-2022 15:58-0400 Body weight 69.[address] Rick Gaffney Work Phone: [facility] Work Phone: 07-16-2022 15:58-0400 Diastolic blood pressure 72 mm[Hg] Dr. Rick Gaffney Work Phone: [facility] Work Phone: 07-16-2022 15:58-0400 Heart rate 72 /min Dr. Rick Gaffney Work Phone: [facility] Work Phone: 07-16-2022 15:58-0400 Respiratory rate 16 /min Dr. Rick Gaffney Work Phone: [facility] Work Phone: 07-16-2022 15:58-0400 Systolic blood pressure 142 mm[Hg] Dr. Rick Gaffney Work Phone: [facility] Work Phone: 05-17-2017 13:03-0400 BMI (Body Mass Index) 22.01 kg/m2 Tyler Shieldsz [facility] Work Phone: 05-17-2017 13:03-0400 BP Diastolic 74 mm[Hg] Tyler Johnston [facility] Work Phone: 05-17-2017 13:03-0400 BP Systolic 102 mm[Hg] Tyler Johnston [facility] Work Phone: 05-17-2017 13:03-0400 Height 177.8 cm Tyler Johnston [facility] Work Phone: 05-17-2017 13:03-0400 Pulse (Heart Rate) 66 /min Tyler Johnston [facility] Work Phone: 05-17-2017 13:03-0400 Respiratory Rate 20 /min Tyler Johnston [facility] Work Phone: 05-17-2017 13:03-0400 Weight 69.58 kg Tyler Johnston [facility] Work Phone: 11-16-2016 13:22-0500 Heart rate 64 /min Nathanethel [facility] Work Phone: 11-16-2016 13:06-0500 BMI (Body Mass Index) 22.22 kg/m2 [facility] Work Phone: 11-16-2016 13:06-0500 BP Diastolic 70 mm[Hg] Kurt Quintero NP [facility] Work Phone: 11-16-2016 13:06-0500 BP Systolic 120 mm[Hg] Kurt Quintero NP [facility] Work Phone: 11-16-2016 13:06-0500 BSA (Body Surface Area) 1.87 m2 Kurt Quintero NP [facility] Work Phone: 11-16-2016 13:06-0500 Pulse (Heart Rate) 72 /min Kurt Quintero NP [facility] Work Phone: 11-16-2016 13:06-0500 Respiratory Rate 12 /min Kurt Quintero NP [facility] Work Phone: 11-16-2016 13:06-0500 Weight 70.26 kg Kurt Quintero NP [facility] Work Phone: 05-17-2016 11:04-0400 Body Temperature 98.1 [degF] Kurt Quintero NP [facility] Work Phone: 09-16-2015 12:06-0500 Height 177.8 cm Kurt Quintero NP [facility] Work Phone: 04-29-2013 13:52-0400 Heart rate 391 ms Valerie Medeiros [facility] Work Phone: Encounters Encounter Date Encounter Type Care Provider Facility Start: 03-30-2025 End: 03-30-2025 Telephone encounter Ramon Samuel MD Work Phone: Pulmonary Medicine Comment on above: Results Start: 03-25-2025 End: 03-25-[address] Jeferson Coffey MD Work Phone: [facility] Work Phone: Start: 03-25-2025 End: 03-25-[address] Jeferson Coffey MD -[facility] Work Phone: Start: 03-25-2025 End: 03-25-2025 ambulatory Jeferson Coffey Facility:[facility] Start: 03-17-2025 ambulatory Karla VALENZUELA Facility:[facility] Start: 03-17-2025 Non-patient / Non-visit Dr. Brice RODRIGUEZ -[facility] Start: 03-17-2025 End: 03-17-[address] Jeferson Coffey MD Work Phone: [facility] Work Phone: Start: 03-17-2025 End: 03-17-2025 Patient encounter procedure Karla Boyer PA -Cardiovascular Services Work Phone: Start: 03-17-2025 End: 03-17-2025 ambulatory Karla VALENZUELA Facility:[facility] Start: 03-02-2025 End: 03-02-2025 Patient encounter procedure Karla VALENZUELA -[facility] Work Phone: Start: 03-02-2025 End: 03-02-2025 ambulatory Jeferson Coffey Facility:[facility] Start: 02-23-2025 End: 02-23-[address] Ángel Nichole MD -[facility] Start: 02-23-2025 End: 02-23-2025 ambulatory Jeferson Coffey Facility:[facility] Start: 02-19-2025 End: 02-19-[address] Jeferson Coffey MD -Laboratory Work Phone: Start: 02-19-2025 End: 02-19-2025 ambulatory Jeferson Coffey Facility:[facility] Start: 02-10-2025 End: 04-12-2025 Follow-up encounter Rubio Grimes MD Work Phone: Kidney Medicine Start: 02-10-2025 End: 02-10-2025 ambulatory RUBIO GRIMES Facility:[facility] Start: 12-31-2024 End: 12-31-[address] Jeferson Coffey MD Work Phone: [facility] Work Phone: Start: 12-31-2024 End: 12-31-[address] Jeferson Coffey MD -Laboratory Work Phone: Start: 12-31-2024 End: 12-31-2024 ambulatory Jeferson Coffey Facility:[facility] Start: 12-14-2024 End: 12-14-[address] Jeferson Coffey MD -Laboratory Work Phone: Start: 12-14-2024 End: 12-14-2024 ambulatory [facility] Facility:[facility] Start: 12-11-2024 End: 12-11-[address] Jefesron Coffey MD -Laboratory Work Phone: Start: 12-11-2024 End: 12-11-2024 [facility] Start: 11-18-2024 End: 11-18-2024 ambulatory RUBIO GRIMES Facility:[facility] Start: 11-18-2024 End: 11-18-2024 Patient encounter procedure Rubio Grimes MD Work Phone: Kidney Medicine Comment on above: Hyponatremia (Primar y Dx); SIADH (syndrome of inappropriate ADH production) (HCC); Essential hypertension Start: 11-10-2024 End: 11-10-2024 ambulatory RUBIO GRIMES Facility:[facility] Start: 11-06-[facility] Start: 11-06-2024 Non-patient / Non-visit Dr. Damon gonzalez MD -[facility] Start: 11-06-2024 End: 11-06-2024 Patient encounter procedure Joede VALENZUELA -Cardiovascular Services Work Phone: Start: 11-06-2024 End: 11-06-20[facility] Start: 10-08-2024 End: 10-08-2024 Patient encounter procedure Jodee VALENZUELA -[facility] Work Phone: Start: 10-08-2024 End: 10-08-2024 ambulatory [facility] Facility:[facility] Start: 09-21-2024 ambulatory [facility] Facility:[facility] Start: 09-02-2024 End: 09-02-2024 Telephone encounter Ramon Samuel MD Work Phone: Pulmonary Medicine Start: 09-01-2024 End: 09-01-2024 Telephone encounter Ramon Samuel MD Work Phone: Pulmonary Medicine Comment on above: Patient Update Start: 08-28-2024 End: 08-28-2024 Telephone encounter Hair Adames APRN.FIREBOAT OPERATOR Work Phone: Internal Medicine [place] Comment on above: ct questions Start: 08-28-2024 End: 08-28-2024 ambulatory Jeferson Coffey Facility:[facility] Start: 08-13-2024 End: 08-13-2024 ambulatory HAIR ADAMES Facility:[facility] Start: 08-13-2024 End: 08-13-2024 Patient encounter procedure Hair Adames APRN.FIREBO[employer] OPERATOR Work Phone: Kidney Medicine Comment on above: Hyponatremia (Primar y Dx); SIADH (syndrome of inappropriate ADH production) (HCC); Essential hypertension; Other hyperlipidemia; Pleural thickening Start: 08-12-2024 End: 08-12-2024 ambulatory RUBIO GRIMES Facility:[facility] Start: 08-06-2024 End: 08-06-2024 Telephone encounter Rubio Grimes MD Work Phone: Kidney Medicine Start: 08-06-2024 End: 08-06-2024 ambulatory RUBIO GRIMES Facility:[facility] Start: 05-21-2024 End: 05-21-2024 ambulatory HAIR ADAMES Facility:[facility] Start: 05-21-2024 End: 05-21-2024 Patient encounter procedure Hair Aadmes APRN.FIREBO[employer] OPERATOR Work Phone: Kidney Medicine Comment on above: Hyponatremia (Primar y Dx); SIADH (syndrome of inappropriate ADH production) (HCC); Essential hypertension; Other hyperlipidemia; Pleural plaque Start: 05-11-2024 End: 05-11-2024 ambulatory RUBIO GRIMES Facility:[facility] Start: 04-24-2024 End: 04-24-2024 ambulatory Jeferson Gutierresgilbert Facility:[facility] Start: 04-17-2024 End: 04-17-20[facility] Start: 04-07-2024 End: 04-07-2024 ambulatory Pulm Lab [facility] Work Phone: PULM LAB [facility] Comment on above: Spirometry Start: 04-07-2024 End: 04-07-2024 Patient encounter procedure Pulm Lab [facility] Work Phone: PULM LAB [facility] Start: 04-03-2024 End: 04-03-2024 ambulatory Rubio Grimes MD Work Phone: Kidney Medicine Comment on above: sodium Start: 04-03-2024 E-mail encounter fro m caregiver Rubio Grimes MD Work Phone: Kidney Medicine Start: 03-30-2024 Telephone encounter Ramon Samuel MD Work Phone: Pulmonary Medicine Comment on above: Orders Start: 03-30-2024 End: 03-30-2024 Patient encounter procedure Ramon Samuel MD Work Phone: Pulmonary Medicine Comment on above: Pleural plaque (Prim vandana Dx); Centrilobular emphysema (HCC); Interstitial pulmonary disease (HCC); Ex-smoker; Hyponatremia Start: 03-20-2024 ambulatory Rubio Grimes MD Work Phone: Kidney Medicine Comment on above: sodium level Start: 03-20-2024 E-mail encounter fro m caregiver Rubio Grimes MD Work Phone: Kidney Medicine Start: 03-18-2024 Telephone encounter Rubio Malin i, MD Work Phone: Kidney Medicine Comment on above: Results Start: 03-13-2024 End: 03-13-2024 Subsequent hospital visit by physician [facility] ([facility]) Work Phone: Cat Scan Comment on above: Pleural effusion [J9 0] Start: 02-20-2024 Telephone encounter Rubio Malin i, MD Work Phone: Internal Medicine [place] Start: 02-19-2024 End: 02-19-2024 Subsequent hospital visit by physician Xr [facility] Work Phone: Radiology Comment on above: Hyponatremia [E87.1] Start: 02-19-2024 End: 02-19-2024 Patient encounter procedure Rubio Grimes MD Work Phone: Kidney Medicine Comment on above: 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 Rick Gaffney Work Phone: [facility] Work Phone: Start: 01-31-2024 End: 01-31-[address] Rick Gaffney Work Phone: [facility]-Laboratory Work Phone: Start: 01-10-2024 End: 01-10-[address] Rick Gaffney Work Phone: [facility] Work Phone: Start: 01-10-2024 End: 01-10-[address] Rick Gaffney Work Phone: [facility]-Laboratory, Phy Office 3rd Flr Start: 01-03-2024 Non-patient / Non-visit Dr. Jj Gaffney Work Phone: [facility] Work Phone: Start: 01-02-2024 Non-patient / Non-visit Dr. Jj Gaffney Work Phone: [facility] Work Phone: Start: 01-01-2024 End: 01-03-2024 Evaluation and management of inpatient Dr. Rick Gaffney Work Phone: [facility]-Progressive Care Unit Work Phone: Start: 01-01-2024 Non-patient / Non-visit Dr. Jj Gaffney Work Phone: [facility] Work Phone: Start: 12-29-2023 End: 12-29-[address] Rick Gaffney Work Phone: [facility] Work Phone: Start: 10-09-2023 End: 10-09-[address] Rick Gaffney Work Phone: [facility] Work Phone: Start: 10-09-2023 End: 10-09-[address] [facility] Start: 10-04-2023 End: 10-04-[address] Rick Gaffney Work Phone: [facility] Work Phone: Start: 10-04-2023 End: 10-04-[address] Rick [facility]aff[facility] Start: 07-11-2023 End: 07-11-[address] Rick Gaffney Work Phone: [facility] Work Phone: Start: 06-10-2023 End: 06-10-2023 ambulatory [facility] Work Phone: Start: 06-10-2023 End: 06-10-2023 [facility] Start: 03-04-2023 End: 03-04-2023 ambulatory [facility] Work Phone: Start: 03-04-2023 End: 03-04-2023 [facility] Start: 11-07-2022 End: 11-07-[address] Rick Gaffney Work Phone: [facility] Work Phone: Start: 11-07-2022 End: 11-07-[address] Rick Gaffney [facility] Start: 07-16-2022 End: 07-16-[address] Rick Gaffney Work Phone: [facility] Start: 07-09-2022 End: 07-09-2022 ambulatory [facility] Work Phone: Start: 07-09-2022 End: 07-09-2022 Patient encounter procedure [facility] Start: 02-13-2022 End: 02-13-[address] Rick Gaffney [facility] Start: 11-16-2021 End: 11-16-[address] Rick Gaffney [facility] Start: 11-02-2021 End: 11-02-[address] Rick Gaffney [facility] Start: 10-26-[address] Rick Gaffney [facility] Start: 10-25-2021 End: 10-25-[address] Rick [facility]affney [facility] Start: 10-25-2021 End: 10-25-[address] Rick Gaff[facility] Procedures Date Procedure Procedure Detail Performing Clinician Start: 03-25-[address] Jeferson self MD Work Phone: Start: 03-17-2025 Radionuclide imaging of perfusion of myocardium under exercise stress Dr. Jeferson Coffey MD Work Phone: Start: 02-23-2025 X-ray of chest, PA a nd lateral views Dr. Jeferson Coffey MD Work Phone: Start: 12-14-2024 Measurement of renal function Dr. Jeferson Coffey MD Work Phone: Comment on above: GFR Calc Start: 12-11-2024 Measurement of renal function Dr. Jeferson Coffey MD Work Phone: Comment on above: GFR Calc Start: 04-07-2024 End: 04-07-2024 Brncdilat rspse spmtry pre&post-brncdilat admn Ramon Samuel MD Work Phone: Start: 03-30-2024 History of coronary artery bypass grafting History of coronary artery bypass surgery Ramon Samuel MD Work Phone: Start: 02-19-2024 Radiologic exam ches t 2 views Rubio Grimes MD Work Phone: Start: 05-17-2017 End: 05-17-2017 Follow Up Appt 6 months Jacques Blair MD Start: 05-17-2017 End: 05-17-2017 PFM Jacques Blair MD Start: 05-17-2017 End: 05-17-2017 Follow Up Appt 6 months Jacques Blair MD Start: 05-17-2017 End: 05-17-2017 PFM Jacques Blair MD Start: 11-16-2016 End: 05-03-2017 *Hepatic Function Panel Jacques Blair MD Start: 11-16-2016 End: 05-07-2017 Ecg routine ecg w/least 12 lds w/i&r Jacques Blair MD Start: 11-16-2016 End: 11-21-2016 Follow Up Appt 6 months Jacques Blair MD Start: 11-16-2016 End: 11-21-2016 PFM Jacques Blair MD Start: 11-16-2016 End: 05-03-2017 Lipid 1996 panel - Serum or Plasma Jacques Blair MD Start: 11-16-2016 End: 05-03-2017 [...] Blair MD Start: 04-27-2016 End: 04-27-2016 Urinalysis Valerie Medeiros Start: 04-19-2016 End: 04-19-2016 *CHLGC - Chlamydia/GC DNA Probe [id number] Rick Grantman Work Phone: Start: 04-19-2016 End: 04-19-2016 *BONITA - Fungus, BONITA Prep Rick Gaffney [employer] Work Phone: Start: 04-19-2016 End: 04-27-2016 Urinalysis complete panel - Urine Rick Gaffney [employer] Work Phone: Start: 04-19-2016 End: 04-19-2016 Urnls dip stick/tablet rgnt non-auto w/o micrscp Rick Gaffney [employer] Work Phone: Start: 04-19-2016 End: 04-19-2016 Urinalysis Harumi DeFinis Start: 04-19-2016 End: 04-19-2016 *CHLGC - Chlamydia/GC DNA Probe [id number] Rick [employer] Work Phone: Start: 04-19-2016 End: 04-19-2016 *BONITA - Fungus, BONITA Prep Rick Gaffney [employer] Work Phone: Start: 04-19-2016 End: 04-27-2016 Urinalysis complete panel - Urine Rick Gaffney [employer] Phone: Start: 04-19-2016 End: 04-19-2016 Urinalysis nonauto w/o scope Rick Gaffney [employer] Work Phone: Start: 04-02-2016 End: 04-27-2016 *CMP Complete Metabolic Panel Rick GrantQuartzy Phone: Start: 04-02-2016 End: 04-27-2016 Lipid 1996 panel - Serum or Plasma Rick GrantClear[employer] Work Phone: Start: 04-02-2016 End: 04-27-2016 *CMP Complete Metabolic Panel [facility] Work Phone: Start: 04-02-2016 End: 04-27-2016 Lipid panel [AGGREGATE] Rick [employer] Work Phone: Start: 09-16-2015 End: 09-16-2015 Follow Up Appt 6 months Jacques Blair MD Start: 09-16-2015 End: 09-16-2015 PFM Jacques Blair MD Start: 09-16-2015 End: 09-16-2015 Follow Up Appt 6 months Jacques Blair MD Start: 09-16-2015 End: 09-16-2015 PFM Jacques Blair MD Start: 04-05-2015 [facility] Rubio Malin i, MD Work Phone: Start: 01-07-2015 End: 01-08-2015 Documentation of current [...] 06-30-2014 Follow Up Appt 6 months Jacques Bliar MD Start: 06-30-2014 End: 06-30-2014 PFM Jacques [...] 08-06-2012 Lipid panel [AGGREGATE] Jacques Blair MD Start: 12-26-2009 History of coronary artery bypass grafting History of coronary artery bypass surgery Karla VALENZUELA Comment on above: 01/11/2010 KNOTT to LA D, EDYTA insitu to the RCA and SVG to DX, SVG to [facility] per Dr. Hernandez Plan of Treatment Date Care Activity Detail Author Start: 02-18-2027 Diabetes Screening Diabetes Screenin g [facility] Start: 06-28-2025 Influenza vaccination Influenz a Vaccine (Season Ended) [facility] Start: 05-21-2025 End: 05-21-2025 Patient encounter procedure 05/21/2025 9:00 AM EDT Office Visit Kidney Medicine [address] [place] [address] [place] [address] [place] [address] SIADH FOLLOW UP Kidney Medicine Comment on above: SIADH FOLLOW UP Start: 04-05-2025 Screening for malign ant neoplasm of colon [facility] Start: 03-30-2025 End: 04-29-[address]25 CT Chest WO contrast CT CHEST WO IVCON Radiology Routine Interstitial pulmonary disease (HCC) Expected: 03/30/2025, Expires: 04/29/2025 [facility] Comment on above: Expected: 03/30/2025 , Expires: 04/29/2025 Start: 11-18-2024 End: 11-18-2024 Patient encounter procedure 11/18/2024 9:00 AM EST Office Visit Kidney Medicine [address] [place] [address] [place] [address] [place] [address] Grimes [facility] Comment on above: [address] Christian taylor Start: 10-28-2024 Advance Directive Discussion Advance Directive Discussion [facility] Start: 08-13-2024 End: 08-13-2024 Patient encounter procedure 08/13/2024 9:00 AM EDT Office Visit Kidney Medicine [address] [place] [address] Hair Adames APRN.[facility] [address] [place] [address] Follow-up disposition: Return in about 3 months (around 08/21/2024) for with Dr Grimes. Kidney Medicine Comment on above: Follow-up dispositio n: Return in about 3 months (around 08/21/2024) for with Dr Grimes. Start: 08-06-2024 End: 11-05-2024 Renal function 2000 panel - Serum or Plasma RENAL FUNCTION PANEL Lab Routine SIADH (syndrome of inappropriate ADH production) ([facility]) Expected: 08/06/2024, Expires: 11/05/2024 [facility] Work Phone: Comment on above: Expected: 08/06/2024 , Expires: 11/05/2024 Start: 06-28-2024 Covid-19 Vaccine ( season) Covid-19 Vaccine ( season) [facility] Start: 06-28-2024 Covid-19 Vaccine ( season) Covid-19 Vaccine ( season) [facility] Start: 06-28-2024 Influenza vaccination [facility] Start: 05-21-2024 End: 05-21-2024 Patient encounter procedure Kidney Medicine Comment on above: 3 month follow up; S IADH Start: 04-07-2024 End: 04-07-2024 ambulatory PULM LAB [facility] Comment on above: Pleural plaque [J92. 9] Start: 04-03-2024 End: 07-03-2024 Renal function 2000 panel - Serum or Plasma RENAL FUNCTION PANEL Lab Routine Hyponatremia Expected: 04/03/2024, Expires: 07/03/2024 [facility] Work Phone: Comment on above: Expected: 04/03/2024 , Expires: 07/03/2024 Start: 03-30-2024 End: 03-30-2024 Patient encounter procedure 03/30/2024 12:15 PM EDT Office Visit Pulmonary Medicine [address] [phone] Ramon Samuel MD [address] [place], [place] [id number] CONSULT TO PULM/CRITICAL CARE Pulmonary Medicine Comment on above: CONSULT TO PULM/CRIT ICAL CARE Start: 2024 Advance Directive Discussion Advance Directive Discussion [facility] Start: 02-26-2024 Medicare Annual Well ness Visit Medicare Annual Wellness Visit [facility] Start: 02-19-2024 End: 05-20-2024 Cortisol [Mass/volume] in Serum or Plasma [facility] Comment on above: Expected: 02/19/2024 , Expires: 05/20/2024 Start: 02-19-2024 End: 05-20-2024 Osmolality of Serum or Plasma [facility] Work Phone: Comment on above: Expected: 02/19/2024 , Expires: 05/20/2024 Start: 02-19-2024 End: 05-20-2024 Sodium [Moles/volume] in Urine collected for unspecified duration [facility] Comment on above: Expected: 02/19/2024 , Expires: 05/20/2024 Start: 02-19-2024 End: 05-20-2024 Thyrotropin [Units/volume] in Serum or Plasma [facility] Comment on above: Expected: 02/19/2024 , Expires: 05/20/2024 Start: 01-03-2024 Patient discharge [facility] Start: 01-02-2024 Referral to fiberglass tube molder [facility] Start: 01-01-2024 Respiratory secretio n precautions [facility] Start: 01-01-2024 Following clinical pathway protocol [facility] Start: 01-01-2024 Assessment of risk o f venous thromboembolism [facility] Start: 01-01-2024 Catheterization of vein [facility] Start: 01-01-2024 Inhalation therapy procedure [facility] Start: 01-01-2024 Insertion of cathete r into peripheral vein [facility] Start: 01-01-2024 Measuring intake and output [facility] Start: 01-01-2024 Oxygen therapy [facility] Start: 01-01-2024 Providing care accor ding to standard [facility] Start: 01-01-2024 Referral to service [facility] Start: 01-01-2024 [facility] Start: 01-01-2024 Blood chemistry [facility] Start: 01-01-2024 Verification routine [facility] Start: 01-01-2024 Admission procedure [facility] Start: 01-01-2024 Hospital admission, emergency, from emergency room, medical nature [facility] Start: 01-01-2024 Patient referral to dietitian [facility] Start: 01-01-2024 [facility] Start: 10-28-2023 Behavioral Health Screening Behavioral Health Screening [facility] Start: 06-28-2023 Covid-19 Vaccine ( season) Covid-19 Vaccine ( season) [facility] Start: 06-28-2023 Covid-19 Vaccine ( season) Covid-19 Vaccine ( season) [facility] Start: 11-16-2021 Lipid panel Lipid Screening [facility] Start: 2019 RSV Vaccine (1 - 1-d ose 60+ series) RSV Vaccine (1 - 1-dose 60+ series) [facility] Start: 2019 RSV Vaccine (1 - Ris k 60-74 years 1-dose series) RSV Vaccine (1 - Risk 60-74 years 1-dose series) [facility] Start: 12-02-2017 End: 12-02-2017 Appointment Appointment [facility] [employer] Work Phone: Start: 11-16-2017 Hepatitis B surface antibody level LDL Cholesterol [facility] Start: 11-04-2017 End: 05-15-2017 *Hepatic Function Panel *Hepatic Function Panel [facility] Work Phone: Start: 11-04-2017 End: 05-15-2017 Lipid panel [AGGREGATE] *Lipid Profile CC PCP [facility] Work Phone: Start: 11-04-2017 End: 05-15-2017 *Hepatic Function Panel *Hepatic Function Panel [facility] Work Phone: Start: 11-04-2017 End: 05-15-2017 Lipid panel [AGGREGATE] *Lipid Profile CC PCP [facility] Work Phone: Start: 05-17-2017 End: 05-17-2017 *Hepatic Function Panel *Hepatic Function Panel [facility] Work Phone: Start: 05-17-2017 End: 05-17-2017 Follow Up Appt 6 months Follow Up Appt 6 months [facility] Work Phone: Start: 05-17-2017 End: 05-17-2017 Lipid panel [AGGREGATE] *Lipid Profile CC PCP [facility] Work Phone: Start: 05-17-2017 End: 05-17-2017 PFM PFM [facility] Work Phone: Start: 05-17-2017 End: 05-17-2017 Appointment Appointment [facility] Work Phone: Start: 05-17-2017 End: 05-17-2017 *Hepatic Function Panel *Hepatic Function Panel [facility] Work Phone: Start: 05-17-2017 End: 05-17-2017 Follow Up Appt 6 months Follow Up Appt 6 months [facility] Work Phone: Start: 05-17-2017 End: 05-17-2017 Lipid 1996 panel *Lipid Profile CC PCP [facility] Work Phone: Start: 05-17-2017 End: 05-17-2017 PFM PFM [facility] Work Phone: Start: 11-16-2016 End: 05-03-2017 *Hepatic Function Panel *Hepatic Function Panel [facility] Work Phone: Start: 11-16-2016 End: 05-07-2017 Ecg routine ecg w/least 12 lds w/i&r EKG (In office) [facility] Work Phone: Start: 11-16-2016 End: 11-21-2016 Follow Up Appt 6 months Follow Up Appt 6 months [facility] Work Phone: Start: 11-16-2016 End: 05-03-2017 Lipid panel [AGGREGATE] *Lipid Profile CC PCP [facility] Work Phone: Start: 11-16-2016 End: 11-21-2016 PFM PF [facility] Work Phone: Start: 11-16-2016 End: 05-03-2017 *Hepatic Function Panel *Hepatic Function Panel [facility] Work Phone: Start: 11-16-2016 End: 05-07-2017 Electrocardiogram, complete EKG (In office) [facility] Work Phone: Start: 11-16-2016 End: 11-21-2016 Follow Up Appt 6 months Follow Up Appt 6 months [facility] Work Phone: Start: 11-16-2016 End: 05-03-2017 Lipid panel [AGGREGATE] *Lipid Profile CC PCP [facility] Work Phone: Start: 11-16-2016 End: 11-21-2016 PFM PF [facility] Work Phone: Start: 05-16-2016 End: 05-16-2016 Follow Up Appt 6 months Follow Up Appt 6 months [facility] Work Phone: Start: 05-16-2016 End: 05-16-2016 PFM PFM [facility] Work Phone: Start: 05-16-2016 End: 05-16-2016 Follow Up Appt 6 months Follow Up Appt 6 months [facility] Work Phone: Start: 05-16-2016 End: 05-16-2016 PF PFM [facility] Work Phone: Start: 04-19-2016 End: 04-19-2016 *CHLGC - Chlamydia/GC DNA Probe [id number] *CHLGC - Chlamydia/GC DNA Probe [id number] [facility] Work Phone: Start: 04-19-2016 End: 04-19-2016 *BONITA - Fungus, BONITA Prep *BONITA - Fungus, BONITA Prep [facility] Work Phone: Start: 04-19-2016 End: 04-19-2016 Urinalysis complete panel - Urine *UAC- Urinalysis, Complete w/ Micro [facility] Work Phone: Start: 04-19-2016 End: 04-19-2016 *CHLGC - Chlamydia/GC DNA Probe [id number] *CHLGC - Chlamydia/GC DNA Probe [id number] [facility] Work Phone: Start: 04-19-2016 End: 04-19-2016 *BONITA - Fungus, BONITA Prep *BONITA - Fungus, BONITA Prep [facility] Work Phone: Start: 04-19-2016 End: 04-19-2016 Urinalysis complete panel - Urine *UAC- Urinalysis, Complete w/ Micro [facility] Work Phone: Start: 04-02-2016 End: 04-19-2016 *CMP Complete Metabolic Panel *CMP Complete Metabolic Panel [facility] Work Phone: Start: 04-02-2016 End: 04-19-2016 Lipid panel [AGGREGATE] *Lipid Profile [facility] Work Phone: Start: 04-02-2016 End: 04-19-2016 *CMP Complete Metabolic Panel *CMP Complete Metabolic Panel [facility] Work Phone: Start: 04-02-2016 End: 04-19-2016 Lipid panel [AGGREGATE] *Lipid Profile [facility] Work Phone: Start: 09-16-2015 End: 09-16-2015 Follow Up Appt 6 months Follow Up Appt 6 months [facility] Work Phone: Start: 09-16-2015 End: 09-16-2015 PFM PFM [facility] Work Phone: Start: 09-16-2015 End: 09-16-2015 Follow Up Appt 6 months Follow Up Appt 6 months [facility] Work Phone: Start: 09-16-2015 End: 09-16-2015 PFM PFM [facility] Work Phone: Start: 01-07-2015 End: 01-07-2015 Follow Up Appt 6 months Follow Up Appt 6 months [facility] Work Phone: Start: 01-07-2015 End: 05-07-2017 Follow Up Appt Other Follow Up Appt Other [facility] Work Phone: Start: 01-07-2015 End: 01-07-2015 PFM PFM [facility] Work Phone: Start: 01-07-2015 End: 01-07-2015 Follow Up Appt 6 months Follow Up Appt 6 months [facility] Work Phone: Start: 01-07-2015 End: 05-07-2017 Follow Up Appt Other Follow Up Appt Other [facility] Work Phone: Start: 01-07-2015 End: 01-07-2015 PFM PFM [facility] Work Phone: Start: 06-30-2014 End: 06-30-2014 Follow Up Appt 6 months Follow Up Appt 6 months [facility] Work Phone: Start: 06-30-2014 End: 06-30-2014 PFM PFM [facility] Work Phone: Start: 06-30-2014 End: 06-30-2014 Follow Up Appt 6 months Follow Up Appt 6 months [facility] Work Phone: Start: 06-30-2014 End: 06-30-2014 [facility] Work Phone: Start: 2014 Prostate specific an tigen measurement Prostate Cancer Screening Discussion [facility] Start: 12-14-2013 End: 12-14-2013 Follow Up Appt 6 months Follow Up Appt 6 months [facility] Work Phone: Start: 12-14-2013 End: 06-30-2014 Follow Up Appt Other Follow Up Appt Other [facility] Work Phone: Start: 12-14-2013 End: 12-14-2013 [facility] Work Phone: Start: 12-14-2013 End: 12-14-2013 Follow Up Appt 6 months Follow Up Appt 6 months [facility] Work Phone: Start: 12-14-2013 End: 06-30-2014 Follow Up Appt Other Follow Up Appt Other [facility] Work Phone: Start: 12-14-2013 End: 12-14-2013 [facility]FM [facility] Work Phone: Start: 04-29-2013 End: 04-29-2013 Ecg routine ecg w/least 12 lds w/i&r EKG (In office) [facility] Work Phone: Start: 04-29-2013 End: 04-29-2013 Follow Up Appt 6 months Follow Up Appt 6 months [facility] Work Phone: Start: 04-29-2013 End: 05-07-2017 Follow Up Appt Other Follow Up Appt Other [facility] Work Phone: Start: 04-29-2013 End: 04-29-2013 PFM [facility] Work Phone: Start: 04-29-2013 End: 04-29-2013 Electrocardiogram, complete EKG (In office) [facility] Work Phone: Start: 04-29-2013 End: 04-29-2013 Follow Up Appt 6 months Follow Up Appt 6 months [facility] Work Phone: Start: 04-29-2013 End: 05-07-2017 Follow Up Appt Other Follow Up Appt Other [facility] Work Phone: Start: 04-29-2013 End: 04-29-2013 PFM PFM [facility] Work Phone: Start: 01-26-2013 End: 02-15-2014 *Hepatic Function Panel *Hepatic Function Panel [facility] Work Phone: Start: 01-26-2013 End: 02-15-2014 Lipid panel [AGGREGATE] *Lipid Profile [facility] Work Phone: Start: 01-26-2013 End: 02-15-2014 *Hepatic Function Panel *Hepatic Function Panel [facility] Work Phone: Start: 01-26-2013 End: 02-15-2014 Lipid panel [AGGREGATE] *Lipid Profile [facility] Work Phone: Start: 09-29-2012 End: 08-30-2015 *Hepatic Function Panel *Hepatic Function Panel [facility] Work Phone: Start: 09-29-2012 End: 05-07-2017 Follow Up Appt 6 months Follow Up Appt 6 months [facility] Work Phone: Start: 09-29-2012 End: 08-30-2015 Lipid panel [AGGREGATE] *Lipid Profile [facility] Work Phone: Start: 09-29-2012 End: 08-30-2015 *Hepatic Function Panel *Hepatic Function Panel [facility] Work Phone: Start: 09-29-2012 End: 05-07-2017 Follow Up Appt 6 months Follow Up Appt 6 months [facility] Work Phone: Start: 09-29-2012 End: 08-30-2015 Lipid panel [AGGREGATE] *Lipid Profile [facility] Work Phone: Start: 02-28-2012 End: 08-06-2012 *Hepatic Function Panel *Hepatic Function Panel [facility] Work Phone: Start: 02-28-2012 End: 02-28-2012 Ecg routine ecg w/least 12 lds w/i&r EKG (In office) [facility] Work Phone: Start: 02-28-2012 End: 09-29-2012 Follow Up Appt 6 months Follow Up Appt 6 months [facility] Work Phone: Start: 02-28-2012 End: 08-06-2012 Lipid panel [AGGREGATE] *Lipid Profile [facility] Work Phone: Start: 02-28-2012 End: 08-06-2012 *Hepatic Function Panel *Hepatic Function Panel [facility] Work Phone: Start: 02-28-2012 End: 02-28-2012 Electrocardiogram, complete EKG (In office) [facility] Work Phone: Start: 02-28-2012 End: 09-29-2012 Follow Up Appt 6 months Follow Up Appt 6 months [facility] Work Phone: Start: 02-28-2012 End: 08-06-2012 Lipid panel [AGGREGATE] *Lipid Profile [facility] Work Phone: Start: 2009 Shingrix Vaccine (1 of 2) Camargo grix Vaccine (1 of 2) [facility] Start: 2004 Prostate specific an tigen measurement Prostate Cancer Screening Discussion [facility] Start: 2004 Screening for malign ant neoplasm of colon [facility] Start: 1994 Lipid panel Lipid Screening [facility] Start: 1989 Zoledronic acid therapy Alpha- 1 Antitrypsin Deficiency Screening [facility] Start: 1978 Pneumococcal Vaccine : 50+ (1 of 2 - PCV) Pneumococcal Vaccine: 50+ (1 of 2 - PCV) [facility] Start: 1978 Urine microalbumin profile DTaP,Tdap,Td Vaccine (1 - Tdap) [facility] Start: 1977 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 Annual PCP Team Chronic Disease Visit [facility] Start: 1977 Anxiety Screening Anxiety Screening [facility] Start: 1977 BP Controlled (<130/80) BP Controlle d (<130/80) [facility] Start: 1977 Depression Screening Depression Scre ening [facility] Start: 1977 Hepatitis B surface antibody level LDL Cholesterol [facility] Start: 1977 Hepatitis C screening Hepatitis C Sc reening [facility] Start: 1977 HIV screening HIV Screening [facility] Start: 1977 Spirometry Spirometry [facility] Start: 1965 Pneumococcal Vaccine : 65+ (1 of 2 - PCV) Pneumococcal Vaccine: 65+ (1 of 2 - PCV) [facility] Start: 1959 Abdominal aortic ane urysm screening Abdominal Aortic Aneurysm Screening [facility] Anion gap measurement [facility] BUN/Creatinine ratio [facility] Calcium [Mass/volume ] in Serum or Plasma [facility] Carbon dioxide, tota l [Moles/volume] in Serum or Plasma [facility] Chloride [Moles/volu me] in Serum or Plasma [facility] Creatinine [Moles/vo lume] in Serum or Plasma [facility] CT Chest W contrast IV CT CHEST W IVCON Radiology Routine Pleural effusion 03/13/2024 11:35 AM EDT [facility] Work Phone: Glucose [Mass/volume ] in Serum or Plasma [facility] End: 04-29-2025 LUNG DIFFUSION CAPACITY (DLCO) LUNG DIFFUSION CAPACITY (DLCO) PFT Routine Pleural plaque Centrilobular emphysema (HCC) 1 Occurrences starting 03/30/2024 until 04/29/2025 [facility] Comment on above: 1 Occurrences starti ng 03/30/2024 until 04/29/2025 End: 04-29-2025 LUNG VOLUMES LUNG VOLUMES PFT Routine Pleural plaque Centrilobular emphysema (HCC) 1 Occurrences starting 03/30/2024 until 04/29/2025 [facility] Comment on above: 1 Occurrences starti ng 03/30/2024 until 04/29/2025 Measurement of renal function [facility] Patient Education HYPERLIPIDEMIA [facility] Work Phone: Patient referral [facility] Work Phone: Potassium [Moles/vol ume] in Serum or Plasma [facility] End: 02-18-2025 Renal function 2000 panel - Serum or Plasma RENAL FUNCTION PANEL Lab Routine Hyponatremia Every 3 months for 8 Occurrences starting 02/19/2024 until 02/18/2025 [facility] Comment on above: Every 3 months for 8 Occurrences starting 02/19/2024 until 02/18/2025 End: 11-18-2025 Renal function 1999 panel - Serum or Plasma RENAL FUNCTION PANEL Lab Routine Hyponatremia Every 3 months for 8 Occurrences starting 11/18/2024 until 11/18/2025 [facility] Work Phone: Comment on above: Every 3 months for 8 Occurrences starting 11/18/2024 until 11/18/2025 End: 04-29-2025 SIX MINUTE WALK SIX MINUTE WALK PFT Routine Pleural plaque Centrilobular emphysema (HCC) 1 Occurrences starting 03/30/2024 until 04/29/2025 [facility] Comment on above: 1 Occurrences starti ng 03/30/2024 until 04/29/2025 Sodium [Moles/volume ] in Serum or Plasma [facility] End: 04-29-2025 SPIROMETRY WITH DILATOR IF OBSTRUCTED SPIROMETRY WITH DILATOR IF OBSTRUCTED PFT Routine Pleural plaque Centrilobular emphysema (HCC) 1 Occurrences starting 03/30/2024 until 04/29/2025 [facility] Work Phone: Comment on above: 1 Occurrences starti ng 03/30/2024 until 04/29/2025 Urea nitrogen [Mass/volume] in Serum or Plasma [facility] End: 03-20-2025 XR Chest PA and Lateral XR CHEST 2V FRONTAL/LAT Radiology Routine Hyponatremia SIADH (syndrome of inappropriate ADH production) (HCC) 1 Occurrences starting 02/19/2024 until 03/20/2025 [facility] Comment on above: 1 Occurrences starti ng 02/19/2024 until 03/20/2025 XR Chest PA and Lateral XR CHEST 2V FRONTAL/LAT Radiology Routine Hyponatremia SIADH (syndrome of inappropriate ADH production) (HCC) 02/19/2024 9:09 AM EDT [facility] Payers Date Payer Category Payer Self-pay [id number] 2024 Medicare MEDICARE [id number] 2021 Private Health Insurance MMO SUP ERMED PPO [id number] 2014 Unknown [id number] 2014 Unknown [id number] Private Health Insurance [id number] Unknown [id number] Unknown [id number]. 462 Unknown [id number] [id number]. 462 Unknown [id number] [id number]. 462 Unknown [id number] [id number]. 462 Unknown [id number] [id number]. 462 Unknown [id number] [id number]. 462 Unknown [id number] [id number]. 462 Unknown [id number] [id number]. 462 Unknown [id number] [id number]. 462 Unknown [id number] [id number]. 462 Unknown [id number] [id number]. 462 Unknown [id number] [id number]. 462 Unknown [id number] [id number]. 462 Unknown [id number] [id number]. 462 Unknown [id number] [id number]. 462 Unknown [id number]. 462 Social History Date Type Detail Facility Start: 10-02-2021 End: 01-01-2024 Tobacco smoking status NHIS Unknown if ever smoked [facility] Start: 11-02-2019 None [facility] Start: 11-02-2019 Spouse/ Signif icant Other [facility] Start: 1960 Sex Assigned At Male W [facility] Start: 03-10-2015 End: 02-23-2025 Tobacco smoking status NHIS Ex-smoker [facility] History of tobacco use Current smoker [facility] Start: 02-19-2024 End: 04-07-2024 Alcohol intake Current non-drinker of alcohol (finding) [facility] Start: 02-19-2024 End: 03-30-2024 History of Social function [facility] Start: 02-19-2024 End: 03-30-2024 Tobacco use panel [facility] Start: 1960 Sex Assigned At Not on file C [facility] National Score (1-100), lower number is lower risk 69 [facility] Start: 01-13-2025 Sex Male (finding) [facility] Goals Date Patient Goal Desired Activity /State Functional Status Date Assessment Result Facility 01-02-2024 Functional status Activity Abili ty Independent [facility] Work Phone: 01-02-2024 Functional status Patient Activity Ambula emma [facility] Work Phone: 04-13-2015 Are you deaf, or do you have serious difficulty hearing No 04/13/2015 3:34 PM Hernán Ambrose [facility] 04-13-2015 Are you blind, or do you have serious difficulty seeing, even when wearing glasses No 04/13/2015 3:34 PM Hernán Ambrose [facility] 04-13-2015 Do you have serious difficulty walking or climbing stairs No 04/13/2015 3:34 PM Hernán Ambrose [facility] 04-13-2015 Do you have difficul ty dressing or bathing No 04/13/2015 3:34 PM Hernán Ambrose [facility] 04-13-2015 Because of a physica l, mental, or emotional condition, do you have difficulty doing errands alone such as visiting a physician's office or shopping No 04/13/2015 3:34 PM Hernán Ambrose [facility] Mental Status Date Assessment Result Facility 01-03-2024 Cognitive function Voice/Name [facility] Work Phone: 01-01-2024 Cognitive function Level Of Cons ciousness Awake;Alert;Appropriate;Fol lows Commands [facility] Work Phone: 04-13-2015 Because of a physica l, mental, or emotional condition, do you have serious difficulty concentrating, remembering, or making decisions No 04/13/2015 3:34 PM EDT Hernán Rhodes [facility] Clinical Notes 12-26-2009 to 03-30-2025 Telephone Encounter - Maida Phillips MA - 03/30/2025 10:07 AM EDTTelephone Encounter - Maida Phillips MA - 03/30/2025 10:07 AM EDTPatient Rubio Silva MD - 11/18/2024 9:00 AM EST Note Date & Type Note Facility 03-30-2025 Telephone encounter Note Fax received from [facility] for LCS Dr. Coffey CT Chest Lung LCS. Placed in Dr. Samuel's office to be viewed. [facility] 03-30-2025 Miscellaneous Notes Fax received from [facility] for LCS Dr. Coffey CT Chest Lung LCS. Placed in Dr. Samuel's office to be viewed. documented in this encounter [facility] 2025 Radiology Diagnostic study note [facility] Imaging Services [address] [place], [place] [address] Low Dose CT Lung Screening MR#: [id number] Acct: [id number] Name: JORGE A RIVERA Rep #: [id number] : [id number] M 64 From: Ruma Centeno MD PCP: Dr. Jeferson Coffey MD Status: REG C TYRA Study:Low Dose CT Lung Screening Date of Exam : 03/25/25 Exam# [id number] Ordering Dr: Jeferson Coffey MD EXAM: CT Chest, Lung Cancer Screening Without Intravenous Contrast CLINICAL INDICATION: LOW DOSE CT LUNG SCREENING; CHORNIC OBSTRUCTIVE PULMONARY DISEASE TECHNIQUE: Axial computed tomography images of the chest without intravenous contrast using low dose (LDCT) lung cancer screening protocol. This CT exam was performed using one or more of the following dose reduction techniques: automated exposure control, adjustment of the mA and/or kV according to patient size, and/or use ofiterative reconstruction technique. COMPARISON: CT chest 11/03/2019 FINDINGS: LUNGS AND PLEURAL SPACES: Lung emphysema/COPD with bilateral apical scarring. Stable pleural thickening of the right lung base and anterior lateral left lung. Stable 4 mm nodule of the left upper lobe. Previously noted nodular density in the posterior left lower lobe resolved. Dependent atelectasis on the right. No significant effusion. No pneumothorax. No new suspicious pulmonary nodules. HEART: Unremarkable. No cardiomegaly. No significant pericardial effusion. No significant coronary artery calcifications. BONES/JOINTS: Unremarkable. No acute fracture. SOFT TISSUES: Unremarkable. VASCULATURE: Unremarkable. No thoracic aortic aneurysm. LYMPH NODES: Unremarkable. No enlarged lymph nodes. CT/Low Dose CT Lung Screening IMPRESSION: 1. No new suspicious pulmonary nodules. 2. LUNG-RADS 2: Benign. Continue low-dose CT screening of the chest in 12 months is recommended. Reading Location: [facility] CC: Dr. Jeferson Coffey MD ~ Drop Wirer: Signed [facility] 11-18-2024 Instructions Rubio Grimes MD - 11/18/2024 9:22 AM EST Continue with Fluid restriction at <48 oz a day Labs every 3 months. documented in this encounter [facility] 11-18-2024 History of Presen t illness Narrative [facility] SERVICE DATE: 11/18/2024 CHIEF COMPLAINT: Hyponatremia f/u HPI: 64-year-old male with medical history significant for Hypertension, COPD, CAD s/p CABG around 2009 comes for follow-up of hyponatremia. Previous notes and results reviewed. Relevant events/history: 02/19/2024: Seen by me as a new consult. Chest x-ray was ordered. Started on sodium chloride pills. 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 08/13/2024: Last seen with Hair. Continued on salt pills and fluid restriction. 11/17/2024 Feels fine Had angiogram done for LE; apparently had 'small blockages' in the left leg; no intervention advised Has been restricting water- around 48-60 oz a day. Has been taking Sodium Chloride 2 gm three a day. Had Colonoscopy done yesterday; had a polyp and some diverticulosis SBP at home in 140s. 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 atorvastatin (LIPITOR) 10 mg tablet Take 5 mg by mouth once daily. atenolol (TENORMIN) 25 mg tablet Take 25 mg by mouth once daily. coenzyme Q10 (H2Q COQ10) 200 mg/gram powd Take by mouth once daily. aspirin, enteric coated (ASPIRIN, ENTERIC COATED) 81 mg EC tablet Take 81 mg by mouth once daily. [place]-3 Fatty Acids-Vitamin E (FISH OIL) 1,000 mg cap Take 1 capsule by mouth once daily. Multivitamin capsule Take 1 capsule by mouth once daily. ALLERGIES: ALLERGIES No Known Allergies REVIEW OF SYSTEMS: Constitutional: No fevers, chills, weight loss Eyes: No loss in vision, photophobia Ear, Nose, and Throat: No epistaxis, nasal congestion Cardiovascular: No chest pain, ALBERT, SOB, palpitations Respiratory: No cough, hemoptysis Gastrointestinal: No diarrhea, constipation Genitourinary: No dysuria, polyuria Musculoskeletal: No joint pain, morning stiffness Skin: No rash, no ulcers Neurological: No headaches, seizures, paresthesias Psychiatric: No depression, anxiety Endocrine: No hair loss, no heat intolerance Hematologic:No easy bruising, easy bleeding PHYSICAL EXAM: There were no vitals taken for this visit. BP 146/78 Pulse 78 Wt 67.1 kg (148 lb) BMI 22.80 kg/m BP - standardized method Pulse 1 BP #1: 149/79 Pulse #1: 78 beats/min 2 BP #2 : 145/78 Pulse #2 : 78 beats/min 3 BP #3 : 143/77 Pulse #3 : 78 beats/min Average Average BP: 146/78 Average Pulse: 78 beats/min Orthostatic vitals Supine Sitting Standing BP cuff location BP cuff size Comments for BP values First BP (right) First BP (left) Last 14 BP Last 14 Encounter BP Readings: Date: BP: 08/13/2024 173/87 05/21/2024 146/78 04/07/2024 129/75 03/30/2024 146/66 02/19/2024 131/79 04/13/2015 122/64 03/10/2015 116/76 03/10/2015 124/80 Last 2 Encounter Wt Readings: Date: Wt: 08/13/2024 64.9 kg (143 lb) 05/21/2024 65 kg (143 lb 4.8 oz) General: Awake, not in distress. HENT: Normocephalic. Eyes: PERRL, Anicteric Neck:Trachea midline, No JVD Respiratory: Clear bilaterally. CV: RRR, No murmurs, rubs, or gallops Abdomen: Soft, non-distended. Extremities: Pedal edema absent. Skin: No rashes. Neurologic: Alert and oriented x 3, no focal deficits. Psychiatric: Cooperative, normal mood/affect. DATA: Diagnostic tests reviewed for today's visit: Recent Labs 11/10/24 0817 NA 134* K 4.3 CHLOR 96* CO2 28 BUN 14 CREAT 0.76 GLUC 79 ANION 10 CA 9.5 P 3.8 Recent Labs 02/19/24 0915 COLOR Yellow CLARITY Clear UGLUC Negative UBILI Negative UKET Negative SPGR 1.016 UHB Negative UPH 7.0 UPROT Negative NITRITES Negative LEUKEST Negative UWBC 0-5 /HPF URBC 0-2 /HPF Recent Labs 02/19/24 0912 HB 14.1 Recent Labs 11/10/24 0817 03/20/24 1258 02/19/24 0912 ALKPHOS -- -- 83 CA 9.5 < > 9.7 P 3.8 < > 3.4 ALB 4.2 < > 4.6 < > = values in this interval not displayed. No results for input(s): BUNRAT, BUNPR, BUNPO in the last 168 hours. No results for input(s): HEPSABQ in the last 1440 hours. Invalid input(s): HEPSABG CT chest with contrast 03/18/2024 IMPRESSION: Multifocal calcified and noncalcified pleural plaques. Clinical correlation recommended. Additionally, 6-12 month follow-up recommended Extensive emphysema as described No suspicious parenchymal nodule or adenopathy ASSESSMENT: Chronic hyponatremia: High urine sodium and osmolarity.. TSH and cortisol were normal. Hyponatremia seems to be secondary to SIADH possibly related to multiple pleural plaques. Patient is currently on sodium chloride pills 2 gm TID (which he is getting online-OTC). Hypertension: Patient is on lisinopril 20 mg daily and atenolol 25 mg daily. BP is higher than the target. Euvolemic on exam Dyslipidemia: On atorvastatin 5 mg daily. Apparently recent cholesterol panel was within acceptable limits. Pleural plaques: History of asbestos exposure. Referred and following up with Pulmonary. PLAN: Offered to increase the dose of Atenolol to 50 mg daily; he wants to discuss with the [employer]. Advised to make sure the [id number] pill that he is taking is sodium chloride 1 g pills. If not, please let us know. Continue with Fluid restriction at <48 oz a day Renal panel every 3 months Follow-up in 9 months. I spent a total of 31 minutes on the date of the service which included preparing to see the patient, [id number] patient care, completing clinical documentation, obtaining and/or reviewing separately obtained history, performing a medically appropriate examination, counseling and educating the patient/family/caregiver, and ordering medications, tests, or procedures. Patient will need a superintendent terminal follow-up in renal clinic. SIGNATURE: Rubio Grimes MD, FACP, SERGIO PATIENT NAME: Jorge A Rivera CC: PRIMARY CARE PHYSICIAN: Jeferson Coffey MD documented in this encounter [facility] 11-18-2024 Note HNO ID: [id number] Author: RUBIO GRIMES MD Service: ? Author Type: Physician Type: Progress Notes Filed: 11/18/2024 09:26 Note Text: [facility] NEPHROLOGY AND HYPERTENSION [facility] SERVICE DATE: 11/18/2024 CHIEF COMPLAINT: Hyponatremia f/u HPI: 64-year-old male with medical history significant for Hypertension, COPD, CAD s/p CABG around 2009 comes for follow-up of hyponatremia. Previous notes and results reviewed. Relevant events/history: 02/19/2024: Seen by me as a new consult. Chest x-ray was ordered. Started on sodium chloride pills. 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 08/13/2024: Last seen with Hair. Continued on salt pills and fluid restriction. 11/17/2024 Feels fine Had angiogram done for LE; apparently had 'small blockages' in the left leg; no intervention advised Has been restricting water- around 48-60 oz a day. Has been taking Sodium Chloride 2 gm three a day. Had Colonoscopy done yesterday; had a polyp and some diverticulosis SBP at home in 140s. 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 atorvastatin (LIPITOR) 10 mg tablet Take 5 mg by mouth once daily. atenolol (TENORMIN) 25 mg tablet Take 25 mg by mouth once daily. coenzyme Q10 (H2Q COQ10) 200 mg/gram powd Take by mouth once daily. aspirin, enteric coated (ASPIRIN, ENTERIC COATED) 81 mg EC tablet Take 81 mg by mouth once daily. Minburn-3 Fatty Acids-Vitamin E (FISH OIL) 1,000 mg cap Take 1 capsule by mouth once daily. Multivitamin capsule Take 1 capsule by mouth once daily. ALLERGIES: ALLERGIES No Known Allergies REVIEW OF SYSTEMS: Constitutional: No fevers, chills, weight loss Eyes: No loss in vision, photophobia Ear, Nose, and Throat: No epistaxis, nasal congestion Cardiovascular: No chest pain, ALBERT, SOB, palpitations Respiratory: No cough, hemoptysis Gastrointestinal: No diarrhea, constipation Genitourinary: No dysuria, polyuria Musculoskeletal: No joint pain, morning stiffness Skin: No rash, no ulcers Neurological: No headaches, seizures, paresthesias Psychiatric: No depression, anxiety Endocrine: No hair loss, no heat intolerance Hematologic:No easy bruising, easy bleeding PHYSICAL EXAM: There were no vitals taken for this visit. BP 146/78 Pulse 78 Wt 67.1 kg (148 lb) BMI 22.80 kg/m? BP - standardized method Pulse 1 BP #1: 149/79 Pulse #1: 78 beats/min 2 BP #2 : 145/78 Pulse #2 : 78 beats/min 3 BP #3 : 143/77 Pulse #3 : 78 beats/min Average Average BP: 146/78 Average Pulse: 78 beats/min Orthostatic vitals Supine Sitting Standing BP cuff location BP cuff size Comments for BP values First BP (right) First BP (left) Last 14 BP Last 14 Encounter BP Readings: Date: BP: 08/13/2024 173/87 05/21/2024 146/78 04/07/2024 129/75 03/30/2024 146/66 02/19/2024 131/79 04/13/2015 122/64 03/10/2015 116/76 03/10/2015 124/80 Last 2 Encounter Wt Readings: Date: Wt: 08/13/2024 64.9 kg (143 lb) 05/21/2024 65 kg (143 lb 4.8 oz) General: Awake, not in distress. HENT: Normocephalic. Eyes: PERRL, Anicteric Neck:Trachea midline, No JVD Respiratory: Clear bilaterally. CV: RRR, No murmurs, rubs, or gallops Abdomen: Soft, non-distended. Extremities: Pedal edema absent. Skin: No rashes. Neurologic: Alert and oriented x 3, no focal deficits. Psychiatric: Cooperative, normal mood/affect. DATA: Diagnostic tests reviewed for today's visit: Recent Labs 11/10/24 0817 NA 134* K 4.3 CHLOR 96* CO2 28 BUN 14 CREAT 0.76 GLUC 79 ANION 10 CA 9.5 P 3.8 Recent Labs 02/19/24 0915 COLOR Yellow CLARITY Clear UGLUC Negative UBILI Negative UKET Negative SPGR 1.016 UHB Negative UPH 7.0 UPROT Negative NITRITES Negative LEUKEST Negative UWBC 0-5 /HPF URBC 0-2 /HPF Recent Labs 02/19/24 0912 HB 14.1 Recent Labs 11/10/24 0817 03/20/24 1258 02/19/24 0912 ALKPHOS -- -- 83 CA 9.5 < > 9.7 P 3.8 < > 3.4 ALB 4.2 < > 4.6 < > = values in this interval not displayed. No results for input(s): BUNRAT, BUNPR, BUNPO in the last 168 hours. No results for input(s): HEPSABQ in the last 1440 hours. Invalid input(s): HEPSABG CT chest with contrast 03/18/2024 IMPRESSION: Multifocal calcified and noncalcified pleural plaques. Clinical correlation recommended. Additionally, 6-12 month follow-up recommended Extensive emphysema a (more content not included)... [facility] 10-08-2024 Evaluation note Diagnosis Onset Date Resolution Peripheral vascular disease noneactive October 08 024 9:18am [facility] Work Phone: 1(283) 543-882511-06-2024 Telephone encounter Note* Telephone Encounter - Ramon Samuel MD - 09/02/2024 10:[address] scan abdomen and pelvis done on August 28, 2024 Lower thorax there is partially calcified right medial posterior pleural clinic with increased calcifications since 2020 similar thickness in maximum thickness posteriorly roughly 1.4 cm AP it was 1.2 cm Also mild largely noncalcified pleural plaques with a few punctuate calcification in the left anterior and lateral lung base also similar to prior exam. The similar size and configuration and increasing calcification argue against mesothelioma. Similar bullous change near the heart and near the left lateral pleura. Similar dense coronary artery calcification and suspected stents. Overall normal heart size but the left atrial appendage is not fully included. Lung bases are clear. No significant pericardial effusion [facility] Work Phone: 1(575) 287-613011-06-2024 Miscellaneous Notes* Telephone Encounter - Ramon Samuel MD - 09/02/2024 10:[address] scan abdomen and pelvis done on August 28, 2024 Lower thorax there is partially calcified right medial posterior pleural clinic with increased calcifications since 2020 similar thickness in maximum thickness posteriorly roughly 1.4 cm AP it was 1.2 cm Also mild largely noncalcified pleural plaques with a few punctuate calcification in the left anterior and lateral lung base also similar to prior exam. The similar size and configuration and increasing calcification argue against mesothelioma. Similar bullous change near the heart and near the left lateral pleura. Similar dense coronary artery calcification and suspected stents. Overall normal heart size but the left atrial appendage is not fully included. Lung bases are clear. No significant pericardial effusion [facility] Telephone encounter Note * Telephone Encounter - Maida Phillips MA - 09/01/2024 8:[address] of Abdomen/Pelvis with Contrast and Cardiometabolic report received from [facility] Placed in Dr. Samuel's office to view. [facility]11-05-2024 Miscellaneous Notes* Telephone Encounter - Maida Phillips MA - 09/01/2024 8:[address] of Abdomen/Pelvis with Contrast and Cardiometabolic report received from [facility] Placed in Dr. Samuel's office to view. documented in [facility] Telephone encounter Note * Telephone Encounter - Mercy Worthy RN - 08/28/2024 4:00 PM EDT Faxed to Dr. Coffey's office per request [place] [address]-01-2024 Miscellaneous Notes* Telephone Encounter - Mercy Dallas RN - 08/28/2024 4:00 PM EDT Faxed to Dr. Coffey's office per request * Telephone Encounter - Hair Adames APRN.FIREBOAT OPERATOR - 08/28/2024 3:49 PM EDT He may have CT without renal concern or need for special hydration * Telephone Encounter - Mercy Worthy RN - 08/28/2024 3:48 PM EDT Routing to Hair Adames to advise. * Telephone Encounter - Ivory Hunter - 08/28/2024 3:[address] Fong office needing to know if the Patient can have a CT with contrast please advise! If they dont answer you may also fax to them at [phone]. documented in this [facility] Telephone encounter Note * Telephone Encounter - Hair Adames APRN.FIREBOAT OPERATOR - 08/28/2024 3:49 PM EDT He may have CT without renal concern or need for special hydration [facility] Work Phone: [phone]) 751-6555996046-23-1721 Telephone encounter Note* Telephone Encounter - Mercy Worthy RN - 08/28/2024 3:48 PM EDT Routing to Hair Adames to advise. [facility] Telephone encounter Note* Telephone Encounter - Ivory Hunter - 08/28/2024 3:[address] Fong office needing to know if the Patient can have a CT with contrast please advise! If they dont answer you may also fax to them at [phone]. [facility]10-17-2024 Instructions* Patient Instructions* Hair Adames APRN.FIREBOAT OPERATOR - 08/13/2024 9:26 AM EDT PLAN: -Please continue with salt tablets 2g three times daily -Limit water intake to no more than 40-48oz total per day ideally -Signs of hyponatremia include: confusion, headache, muscle spasms/cramps, nausea, vision changes, lethargy or dizziness -Recommend BP goal of 130s/80 or less. Please contact the office if your blood pressure is less than 110/70 or higher than 150/90. Normal heart rate/pulse is 60-100 beats per minute. Please let us know if you are consistently less than 60 beats or over 100 beats when at rest. -Good diabetes, blood pressure and cholesterol control are important to prevent kidney disease progression -Continue to follow with your specialists including pulmonology and PCP as planned -Follow low salt diet. (1/2 tsp salt) <2 grams or 2000mg -Please watch your protein intake and limit it to 3 ounces of protein per meal -Recommend HgbA1c of 7 or less as CKD goal. -Please avoid Advil, Ibuprofen(Motrin), Aleve(Naproxen), Meloxicam(Mobic), diclofenac and other pain/arthritis medications called NSAIDS. It is ok to take acetaminophen (Tylenol) for pain as needed -Please avoid contrast dye with imaging. If a provider wants to order CT or MRI with contrast, please let them know you have decreased kidney function. -Increase activity as tolerated. RTC continue labs every 3 months (next due in September) and follow up as scheduled with Dr Sydney Franklin Please bring a complete list of your medications, the dosage and times taken - to every visit. Please contact me by phone or via My Chart for any questions or concerns. We want to know that ALL of your concerns/needs relevant to this visit- were met today and that we have hopefully exceeded your expectations. If not-please let us know how we can improve our service to you by calling [phone] You may be receiving a survey regarding your care today. If you do, please take a few minutes to fill it out and send it back. It would be greatly appreciated. documented in this encounter[facility] History of Present illness Narrative* Hair Adames APRN.NEAL - 08/13/2024 9:00 AM EDT feeDepartment of Kidney Medicine Medical Specialties [facility] CHIEF COMPLAINT: Follow up for hyponatremia Data copied from my previous encounters and was imported as a reference for the current encounter. All information in this note has been verified. Data or information that hasn't changed was retainedfrom previous notes and the rest was revised or updated where relevant. 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 PMH: HTN, COPD, CAD s/p CABG, OA and hyperlipidemia. Kidney function on most recent labs is normal Last seen by Dr Grimes 02/19/24. 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 Very active especially out doors Drinking 50-60oz water per day- 12 oz ot Gatorade daily when he's outside. Has 2 cups of coffee Hasbeen trying to be careful- trying to take less water and coffee with him to work now Problem List Reviewed PAST MEDICAL HISTORY Diagnosis Date CAD (coronary artery disease) Chronic obstructive pulmonary disease (COPD) (HCC) Essential hypertension 02/19/2024 Current Outpatient Medications on File Prior to Visit Medication Sig sodium chloride soluble tablet 1 g Take 2 tablets by mouth three times a day. lisinopril (ZESTRIL) 10 mg tablet Take 10 mg by mouth once daily. atorvastatin (LIPITOR) 10 mg tablet Take 5 mg by mouth once daily. atenolol (TENORMIN) 25 mg tablet Take 25 mg by mouth once daily. coenzyme Q10 (H2Q COQ10) 200 mg/gram powd Take by mouth once daily. aspirin, enteric coated (ASPIRIN, ENTERIC COATED) 81 mg EC tablet Take 81 mg by mouth once daily. Minburn-3 Fatty Acids-Vitamin E (FISH OIL) 1,000 mg cap Take 1 capsule by mouth once daily. Multivitamin capsule Take 1 capsule by mouth once daily. No current facility-administered medications on file prior to visit. REVIEW OF SYSTEMS: Cardiovascular: denies chest pain or pressure, palpitations, dizziness, lightheadedness. Denies DOEDenies edema Respiratory: denies cough Genitourinary: denies frequency, pink or bloody urine or dysuria. Has 1 episodes of nocturia per night Does feel they empty bladder fully. Psychiatric: denies depression or anxiety. Reports energy level is much better PHYSICAL EXAM BP: BP 173/87 Pulse 80 Wt 64.9 kg (143 lb) BMI 22.03 kg/m BP - standardized method Pulse 1 BP #1: 168/85 Pulse #1: 80 beats/min 2 BP #2 : 172/88 Pulse #2 : 80 beats/min 3 BP #3 : 179/88 Pulse #3 : 80 beats/min Average Average BP: 173/87 Average Pulse: 80 beats/min Orthostatic vitals Supine Sitting Standing BP cuff location BP cuff size Comments for BP values First BP (right) First BP (left) Constitutional: No acute distress, Responsive, Thin, and Well-nourished Cardiovascular:No peripheral edema Regular rate and rhythm, normal S1 and S2, no murmurs Respiratory: Normal respiratory effort. Extremities: No peripheral edema Neurological: Alert and oriented x3. Psychiatric: Alert and oriented x self, place, time, and setting Normal mood/affect Talkative and very friendly, invested in his health Diagnostic tests reviewed for today's visit Labs: Latest Ref Rng 04/03/2024 05/11/2024 08/06/2024 08/12/2024 RENAL KIDNEY STONE FLOWSHEET EGFR, All Other >=60 mL/min/1.73m 104 101 101 99 Creatinine 0.73 - 1.22 mg/dL 0.66 (L) 0.72 (L) 0.72 (L) 0.77 BUN 9 - 24 mg/dL 12 11 11 15 Sodium 136 - 144 mmol/L 128 (L) 132 (L) 126 (L) 131 (L) Potassium 3.7 - 5.1 mmol/L 4.2 4.2 4.1 4.1 Chloride 98 - 107 mmol/L 94 (L) 97 (L) 91 (L) 97 (L) CO2 22 - 30 mmol/L 24 29 25 24 Glucose 74 - 99 mg/dL 122 (H) 96 110 (H) 86 Calcium 8.5 - 10.2 mg/dL 9.4 9.1 9.4 9.7 Phosphorus 2.7 - 4.8 mg/dL 3.3 3.0 3.1 3.5 Albumin 3.9 - 4.9 g/dL 4.2 4.2 4.4 4.5 WBC 3.70 - 11.00 k/uL HGB 13.0 - 17.0 g/dL HCT 39.0 - 51.0 % PLT 150 - 400 k/uL Uric Acid 4.0 - 8.1 mg/dL ASSESSMENT: Pt is an 64 year old male being seen today in FU for hyponatremia likely in the settingof SIADH. PMH: HTN, COPD, CAD s/p CABG, OA and hyperlipidemia. Kidney function on most recent labs is normal Hyponatremia -since 2019 -baseline serum sodium around 128 -Na+- 131 below goal but improved a bit On sodium chloride 2mg tid Continue fluid restrictions to 1.5L -TSH and cortisol wnl in January 2024 -urine osmolality 483 wnl n January 2024 -urine sodium 49 wnl in January 2024 -Chest xray with pleural plaques- follows w pulmonology - reviewed importance of sodium and rationale for fluid restrictions and keeping sodium as close tonormal as possible HTN/Volume: - decent control on current regimen. 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 PLAN: -Please continue with salt tablets 2g three times daily -Limit water intake to no more than 40-48oz total per day ideally -Signs of hyponatremia include: confusion, headache, muscle spasms/cramps, nausea, vision changes, lethargy or dizziness -Recommend BP goal of 130s/80 or less. Please contact the office if your blood pressure is less than 110/70 or higher than 150/90. Normal heart rate/pulse is 60-100 beats per minute. Please let us know if you are consistently less than 60 beats or over 100 beats when at rest. -Good diabetes, blood pressure and cholesterol control are important to prevent kidney disease progression -Continue to follow with your specialists including pulmonology and PCP as planned -Follow low salt diet. (1/2 tsp salt) <2 grams or 2000mg -Please watch your protein intake and limit it to 3 ounces of protein per meal -Recommend HgbA1c of 7 or less as CKD goal. -Please avoid Advil, Ibuprofen(Motrin), Aleve(Naproxen), Meloxicam(Mobic), diclofenac and other pain/arthritis medications called NSAIDS. It is ok to take acetaminophen (Tylenol) for pain as needed -Please avoid contrast dye with imaging. If a provider wants to order CT or MRI with contrast, please let them know you have decreased kidney function. -Increase activity as tolerated. RTC continue labs every 3 months (next due in September) and follow up as scheduled with Dr Sydney Adames FIREBOAT OPERATOR I spent a total of 35 minutes on the date of the service which included preparing to see the patient, [id number] patient care, completing clinical documentation, performing a medically appropriate examination, counseling and educating the patient/family/caregiver and ordering medications, tests, or procedures. Pt will need continued regular follow up ([id number]) with nephrology documented in this encounterK[facility]10[facility]24 NoteHNO ID: [id number] Author: HAIR ADAMES APRN.NEAL Service: ? Author Type: Nurse Practitioner Type: Progress Notes Filed: 08/27/2024 13:47 Note Text: feeDepartment of Kidney Medicine Medical Specialties [facility] CHIEF COMPLAINT: Follow up for hyponatremia Data copied from my previous encounters and was imported as a reference for the current encounter. All information in this note has been verified. Data or information that hasn't changed was retained from previous notes and the rest was revised or updated where relevant. 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 PMH: HTN, COPD, CAD s/p CABG, OA and hyperlipidemia. Kidney function on most recent labs is normal Last seen by Dr Grimes 02/19/24. 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 Very active especially out doors Drinking 50-60oz water per day- 12 oz ot Gatorade daily when he's outside. Has 2 cups of coffee Has been trying to be careful- trying to take less water and coffee with him to work now Problem List Reviewed PAST MEDICAL HISTORY Diagnosis Date CAD (coronary artery disease) Chronic obstructive pulmonary disease (COPD) (HCC) Essential hypertension 02/19/2024 Current Outpatient Medications on File Prior to Visit Medication Sig sodium chloride soluble tablet 1 g Take 2 tablets by mouth three times a day. lisinopril (ZESTRIL) 10 mg tablet Take 10 mg by mouth once daily. atorvastatin (LIPITOR) 10 mg tablet Take 5 mg by mouth once daily. atenolol (TENORMIN) 25 mg tablet Take 25 mg by mouth once daily. coenzyme Q10 (H2Q COQ10) 200 mg/gram powd Take by mouth once daily. aspirin, enteric coated (ASPIRIN, ENTERIC COATED) 81 mg EC tablet Take 81 mg by mouth once daily. Minburn-3 Fatty Acids-Vitamin E (FISH OIL) 1,000 mg cap Take 1 capsule by mouth once daily. Multivitamin capsule Take 1 capsule by mouth once daily. No current facility-administered medications on file prior to visit. REVIEW OF SYSTEMS: Cardiovascular: denies chest pain or pressure, palpitations, dizziness, lightheadedness. Denies ALBERT Denies edema Respiratory: denies cough Genitourinary: denies frequency, pink or bloody urine or dysuria. Has 1 episodes of nocturia per night Does feel they empty bladder fully. Psychiatric: denies depression or anxiety. Reports energy level is much better PHYSICAL EXAM BP: BP 173/87 Pulse 80 Wt 64.9 kg (143 lb) BMI 22.03 kg/m? BP - standardized method Pulse 1 BP #1: 168/85 Pulse #1: 80 beats/min 2 BP #2 : 172/88 Pulse #2 : 80 beats/min 3 BP #3 : 179/88 Pulse #3 : 80 beats/min Average Average BP: 173/87 Average Pulse: 80 beats/min Orthostatic vitals Supine Sitting Standing BP cuff location BP cuff size Comments for BP values First BP (right) First BP (left) Constitutional: No acute distress, Responsive, Thin, and Well-nourished Cardiovascular:No peripheral edema Regular rate and rhythm, normal S1 and S2, no murmurs Respiratory: Normal respiratory effort. Extremities: No peripheral edema Neurological: Alert and oriented x3. Psychiatric: Alert and oriented x self, place, time, and setting Normal mood/affect Talkative and very friendly, invested in his health Diagnostic tests reviewed for today's visit Labs: Latest Ref Rng 04/03/2024 05/11/2024 08/06/2024 08/12/2024 RENAL KIDNEY STONE FLOWSHEET EGFR, All Other >=60 mL/min/1.73m? 104 101 101 99 Creatinine 0.73 - 1.22 mg/dL 0.66 (L) 0.72 (L) 0.72 (L) 0.77 BUN 9 - 24 mg/dL 12 11 11 15 Sodium 136 - 144 mmol/L 128 (L) 132 (L) 126 (L) 131 (L) Potassium 3.7 - 5.1 mmol/L 4.2 4.2 4.1 4.1 Chloride 98 - 107 mmol/L 94 (L) 97 (L) 91 (L) 97 (L) CO2 22 - 30 mmol/L 24 29 25 24 Glucose 74 - 99 mg/dL 122 (H) 96 110 (H) 86 Calcium 8.5 - 10.2 mg/dL 9.4 9.1 9.4 9.7 Phosphorus 2.7 - 4.8 mg/dL 3.3 3.0 3.1 3.5 Albumin 3.9 - 4.9 g/dL 4.2 4.2 4.4 4.5 WBC 3.70 - 11.00 k/uL HGB 13.0 - 17.0 g/dL HCT 39.0 - 51.0 % PLT 150 - 400 k/uL Uric Acid 4.0 - 8.1 mg/dL ASSESSMENT: Pt is an 64 year old male being seen today in FU for 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 PMH: HTN, COPD, CAD s/p CABG, OA and hyperlipidemia. Kidney function on most recent labs is normal Hyponatremia -since 2019 -baseline serum sodium around 128 -Na+- 131 below goal but improved a bit On sodium chloride 2mg tid Continue fluid restrictions to 1.5L -TSH and cortisol wnl in January 2024 -urine osmolality 483 wnl n January 2024 -urine sodium 49 wnl in January 2024 -Chest xray with pl (more content not included)...[facility] 08-06-2024 Miscellaneous Notes* Telephone Encounter - Rubio Grimes MD - 08/06/2024 12:29 PM EDT Discussed with Jorge A that his Serum Sodium has dropped down to 126; has been asymptomatic though.Patient claims that he has been taking Sodium Chloride pills 2 gm TID. However he has been drinkingaround 60 oz of water/fluids a day. Advised to restrict fluid intake to 40-48 oz and repeat renal panel a day before his next appointment on 08/13 [facility] Telephone encounter Note * Telephone Encounter - Rubio Grimes MD - 08/06/2024 12:29 PM EDT Discussed with Jorge A that his Serum Sodium has dropped down to 126; has been asymptomatic though.Patient claims that he has been taking Sodium Chloride pills 2 gm TID. However he has been drinkingaround 60 oz of water/fluids a day. Advised to restrict fluid intake to 40-48 oz and repeat renal panel a day before his next appointment on 08/13 [facility] Instructions* Patient Instructions* Hair Adames, LOAD TESTER.FIREBOAT OPERATOR - 05/21/2024 9:36 AM EDT PLAN: -Please take blood pressure as you have been doing and let us know if you are consistently in the 140s. We might need to switch from salt to shipley instead or add another dose of lisinopril. Please reach out next week with blood pressures -Please continue with salt tablets 2g three times daily -Limit water intake to no more than 1- 1.5L per day -Recommend BP goal of 130s/80 or less. Please contact the office if your blood pressure is less than 110/70 or higher than 150/90. Normal heart rate/pulse is 60-100 beats per minute. Please let us know if you are consistently less than 60 beats or over 100 beats when at rest. -Good diabetes, blood pressure and cholesterol control are important to prevent kidney disease progression -Continue to follow with your specialists including pulmonology and PCP as planned -Follow low salt diet. (1/2 tsp salt) <2 grams or 2000mg -Please watch your protein intake and limit it to 3 ounces of protein per meal -Recommend HgbA1c of 7 or less as CKD goal. -Please avoid Advil, Ibuprofen(Motrin), Aleve(Naproxen), Meloxicam(Mobic), diclofenac and other pain/arthritis medications called NSAIDS. It is ok to take acetaminophen (Tylenol) for pain as needed -Please avoid contrast dye with imaging. If a provider wants to order CT or MRI with contrast, please let them know you have decreased kidney function. -Increase activity as tolerated. RTC continue labs every 3 months and follow up in 3-4 months Shipley- supplement for increasing blood sodium- I have found it on [employer] fairly inexpensively Please bring a complete list of your medications, the dosage and times taken - to every visit. Please contact me by phone or via My Chart for any questions or concerns. We want to know that ALL of your concerns/needs relevant to this visit- were met today and that we have hopefully exceeded your expectations. If not-please let us know how we can improve our service to you by calling [phone] You may be receiving a survey regarding your care today. If you do, please take a few minutes to fill it out and send it back. It would be greatly appreciated. 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 PMH: HTN, COPD, CAD s/p CABG, OA and hyperlipidemia. Kidney function on most recent labs is normal Last seen by Dr Grimes 02/19/24 Since last visit feels BP elevated d/t increased sodium tablets. Does feel better since taking the salt tabs as he has more energy. He definitely sees a difference. 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 Very active especially out doors Drinking 50-60oz water per day- 12 oz ot Gatorade daily when he's outside. Has 2 cups of coffee Problem List Reviewed PAST MEDICAL HISTORY Diagnosis Date CAD (coronary artery disease) Chronic obstructive pulmonary disease (COPD) (HCC) Essential hypertension 02/19/2024 Current Outpatient Medications on File Prior to Visit Medication Sig sodium chloride soluble tablet 1 g Take 2 tablets by mouth three times a day. lisinopril (ZESTRIL) 10 mg tablet Take 10 mg by mouth once daily. atorvastatin (LIPITOR) 10 mg tablet Take 5 mg by mouth once daily. atenolol (TENORMIN) 25 mg tablet Take 25 mg by mouth once daily. coenzyme Q10 (H2Q COQ10) 200 mg/gram powd Take by mouth once daily. aspirin, enteric coated (ASPIRIN, ENTERIC COATED) 81 mg EC tablet Take 81 mg by mouth once daily. Minburn-3 Fatty Acids-Vitamin E (FISH OIL) 1,000 mg cap Take 1 capsule by mouth once daily. Multivitamin capsule Take 1 capsule by mouth once daily. No current facility-administered medications on file prior to visit. REVIEW OF SYSTEMS: Cardiovascular: denies chest pain or pressure, palpitations, dizziness, lightheadedness. Denies DOEDenies edema Respiratory: denies cough Genitourinary: denies frequency, pink or bloody urine or dysuria. Has 1 episodes of nocturia per night Does feel they empty bladder fully. Psychiatric: denies depression or anxiety. Reports energy level is much better PHYSICAL EXAM BP: BP 146/78 Pulse 71 Wt 65 kg (143 lb 4.8 oz) BMI 22.07 kg/m BP - standardized method Pulse 1 BP #1: 143/80 Pulse #1: 71 beats/min 2 BP #2 : 148/75 Pulse #2 : 71 beats/min 3 BP #3 : 148/81 Pulse #3 : 71 beats/min Average Average BP: 146/78 Average Pulse: 71 beats/min Orthostatic vitals Supine Sitting Standing BP cuff location BP cuff size Comments for BP values First BP (right) First BP (left) Constitutional: No acute distress, Responsive, Thin, and Well-nourished Cardiovascular:No peripheral edema Regular rate and rhythm, normal S1 and S2, no murmurs Respiratory: Normal respiratory effort. Extremities: No peripheral edema Neurological: Alert and oriented x3. Psychiatric: Alert and oriented x self, place, time, and setting Normal mood/affect Talkative and very friendly, invested in his health Diagnostic tests reviewed for today's visit Labs: Latest Ref Rng 02/19/2024 03/20/2024 04/03/2024 05/11/2024 RENAL KIDNEY STONE FLOWSHEET EGFR, All Other >=60 mL/min/1.73m 99 102 104 101 Creatinine 0.73 - 1.22 mg/dL 0.79 0.72 (L) 0.66 (L) 0.72 (L) BUN 9 - 24 mg/dL 13 13 12 11 Sodium 136 - 144 mmol/L 128 (L) 128 (L) 128 (L) 132 (L) Potassium 3.7 - 5.1 mmol/L 4.6 4.2 4.2 4.2 Chloride 98 - 107 mmol/L 91 (L) 93 (L) 94 (L) 97 (L) CO2 22 - 30 mmol/L 29 29 24 29 Glucose 74 - 99 mg/dL 95 138 (H) 122 (H) 96 Calcium 8.5 - 10.2 mg/dL 9.7 9.6 9.4 9.1 Phosphorus 2.7 - 4.8 mg/dL 3.4 3.6 3.3 3.0 Albumin 3.9 - 4.9 g/dL 4.6 4.3 4.2 4.2 WBC 3.70 - 11.00 k/uL 8.75 HGB 13.0 - 17.0 g/dL 14.1 HCT 39.0 - 51.0 % 40.9 PLT 150 - 400 k/uL 238 Uric Acid 4.0 - 8.1 mg/dL 3.4 (L) ASSESSMENT: Pt is an 64 year old male being seen today in FU for hyponatremia likely in the settingof SIADH. PMH: HTN, COPD, CAD s/p CABG, OA and hyperlipidemia. Kidney function on most recent labs is normal Hyponatremia -since 2019 -baseline serum sodium around 128 -Na+- 132 improved although still slightly below goal On sodium chloride 2mg tid Continue fluid restrictions to 1.5L -TSH and cortisol wnl in January 2024 -urine osmolality 483 wnl n January 2024 -urine sodium 49 wnl in January 2024 -Chest xray with pleural plaques and referred to pulmonology -reviewed importance of sodium and rationale for fluid restrictions and keeping sodium as close to normal as possible HTN/Volume: - decent on current regimen. Higher today in the office d/t stressful call just prior to arrival. Cardiology is also monitoring BP -Volume: euvolemic -Currently on atenolol 25mg daily and lisinopril 10mg daily Pleural thickening -per January chest xray and CT scan -hx asbestos exposure as commercial credit lead -following with pulmonology Metabolic/electrolytes: K+- 4.2 wnl Co2- 29 wnl CV/Lipids: -hx of hyperlipidemia -on statin -recommend LDL goal of <100 to prevent progression of CKD. PLAN: -Please take blood pressure as you have been doing and let us know if you are consistently in the 140s. We might need to switch from salt to shipley instead or add another dose of lisinopril. Please reach out next week with blood pressures -Please continue with salt tablets 2g three times daily -Limit water intake to no more than 1- 1.5L per day -Recommend BP goal of 130s/80 or less. Please contact the office if your blood pressure is less than 110/70 or higher than 150/90. Normal heart rate/pulse is 60-100 beats per minute. Please let us know if you are consistently less than 60 beats or over 100 beats when at rest. -Good diabetes, blood pressure and cholesterol control are important to prevent kidney disease progression -Continue to follow with your specialists including pulmonology and PCP as planned -Follow low salt diet. (1/2 tsp salt) <2 grams or 2000mg -Please watch your protein intake and limit it to 3 ounces of protein per meal -Recommend HgbA1c of 7 or less as CKD goal. -Please avoid Advil, Ibuprofen(Motrin), Aleve(Naproxen), Meloxicam(Mobic), diclofenac and other pain/arthritis medications called NSAIDS. It is ok to take acetaminophen (Tylenol) for pain as needed -Please avoid contrast dye with imaging. If a provider wants to order CT or MRI with contrast, please let them know you have decreased kidney function. -Increase activity as tolerated. RTC continue labs every 3 months and follow up in 3-4 months Shipley- supplement for increasing blood sodium- I have found it on [employer] fairly inexpensively Hair Adaems CNP I spent a total of 39 minutes on the date of the service which included preparing to see the patient, azay-ip-woke patient care, completing clinical documentation, performing a medically appropriate examination, counseling and educating the patient/family/caregiver and ordering medications, tests, or procedures. Pt will need continued regular follow up (G2211) with nephrology documented in this encounterK[facility]24 NoteHNO ID: [id number] Author: HAIR ADAMES APRN.NEAL Service: ? 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 PMH: HTN, COPD, CAD s/p CABG, OA and hyperlipidemia. Kidney function on most recent labs is normal Last seen by Dr Grimes 02/19/24 Since last visit feels BP elevated d/t increased sodium tablets. Does feel better since taking the salt tabs as he has more energy. He definitely sees a difference. 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 Very active especially out doors Drinking 50-60oz water per day- 12 oz ot Gatorade daily when he's outside. Has 2 cups of coffee Problem List Reviewed PAST MEDICAL HISTORY Diagnosis Date CAD (coronary artery disease) Chronic obstructive pulmonary disease (COPD) (HCC) Essential hypertension 02/19/2024 Current Outpatient Medications on File Prior to Visit Medication Sig sodium chloride soluble tablet 1 g Take 2 tablets by mouth three times a day. lisinopril (ZESTRIL) 10 mg tablet Take 10 mg by mouth once daily. atorvastatin (LIPITOR) 10 mg tablet Take 5 mg by mouth once daily. atenolol (TENORMIN) 25 mg tablet Take 25 mg by mouth once daily. coenzyme Q10 (H2Q COQ10) 200 mg/gram powd Take by mouth once daily. aspirin, enteric coated (ASPIRIN, ENTERIC COATED) 81 mg EC tablet Take 81 mg by mouth once daily. Minburn-3 Fatty Acids-Vitamin E (FISH OIL) 1,000 mg cap Take 1 capsule by mouth once daily. Multivitamin capsule Take 1 capsule by mouth once daily. No current facility-administered medications on file prior to visit. REVIEW OF SYSTEMS: Cardiovascular: denies chest pain or pressure, palpitations, dizziness, lightheadedness. Denies ALBERT Denies edema Respiratory: denies cough Genitourinary: denies frequency, pink or bloody urine or dysuria. Has 1 episodes of nocturia per night Does feel they empty bladder fully. Psychiatric: denies depression or anxiety. Reports energy level is much better PHYSICAL EXAM BP: BP 146/78 Pulse 71 Wt 65 kg (143 lb 4.8 oz) BMI 22.07 kg/m? BP - standardized method Pulse 1 BP #1: 143/80 Pulse #1: 71 beats/min 2 BP #2 : 148/75 Pulse #2 : 71 beats/min 3 BP #3 : 148/81 Pulse #3 : 71 beats/min Average Average BP: 146/78 Average Pulse: 71 beats/min Orthostatic vitals Supine Sitting Standing BP cuff location BP cuff size Comments for BP values First BP (right) First BP (left) Constitutional: No acute distress, Responsive, Thin, and Well-nourished Cardiovascular:No peripheral edema Regular rate and rhythm, normal S1 and S2, no murmurs Respiratory: Normal respiratory effort. Extremities: No peripheral edema Neurological: Alert and oriented x3. Psychiatric: Alert and oriented x self, place, time, and setting Normal mood/affect Talkative and very friendly, invested in his health Diagnostic tests reviewed for today's visit Labs: Latest Ref Rng 02/19/2024 03/20/2024 04/03/2024 05/11/2024 RENAL KIDNEY STONE FLOWSHEET EGFR, All Other >=60 mL/min/1.73m? 99 102 104 101 Creatinine 0.73 - 1.22 mg/dL 0.79 0.72 (L) 0.66 (L) 0.72 (L) BUN 9 - 24 mg/dL 13 13 12 11 Sodium 136 - 144 mmol/L 128 (L) 128 (L) 128 (L) 132 (L) Potassium 3.7 - 5.1 mmol/L 4.6 4.2 4.2 4.2 Chloride 98 - 107 mmol/L 91 (L) 93 (L) 94 (L) 97 (L) CO2 22 - 30 mmol/L 29 29 24 29 Glucose 74 - 99 mg/dL 95 138 (H) 122 (H) 96 Calcium 8.5 - 10.2 mg/dL 9.7 9.6 9.4 9.1 Phosphorus 2.7 - 4.8 mg/dL 3.4 3.6 3.3 3.0 Albumin 3.9 - 4.9 g/dL 4.6 4.3 4.2 4.2 WBC 3.70 - 11.00 k/uL 8.75 HGB 13.0 - 17.0 g/dL 14.1 HCT 39.0 - 51.0 % 40.9 PLT 150 - 400 k/uL 238 Uric Acid 4.0 - 8.1 mg/dL 3.4 (L) ASSESSMENT: Pt is an 64 year old male being seen today in FU for 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 PMH: HTN, COPD, CAD s/p CABG, OA and hyperlipidemia. Kidney function on most recent labs is normal Hyponatremia -since 2019 -baseline serum sodium around 128 -Na+- 132 improved although still slightly below goal On sodium chloride 2mg tid Continue fluid restrictions to 1.5L -TSH and cortisol wnl in January 2024 -urine osmolality 483 wnl n January 2024 -urine sodium 49 wnl in January 2024 -Chest xray with pleural plaques and referred to pulmonology -reviewed importance of sodium and rationale for fluid restrictions and keeping sodium as close to normal as possible HTN/Volume: - decent on current regimen. Higher today in the office d/t stressful call just prior to arrival. Cardiol (more content not included)...[facility]06-11-2024 NoteHNO ID: [id number] Author: ROSIBEL NORMAN MD Service: ? Author Type: Respiratory Therapist Type: Procedures Filed: 04/07/2024 16:46 Note Text: Attestation signed by Rosibel Norman MD at 04/07/2024 4:46 PM The patient completed the six minute walk test with No stops. . The patient required Room Air to complete the test. The distance the patient walked in six minutes is within the predicted normal range. This is the first time patient takes the six minute walk test. The patient perceived their dyspnea during the six minute walk test to be 2-Slight on the modified Marito scale. The patient perceived their fatigue during the six minute walk test to be 2-Slight on the modified Marito scale. I have reviewed the findings and made appropriate revisions as needed. No oxygen need. SIGNATURE: Rosibel Norman MD PATIENT NAME: Jorge A Rivera DATE: April 07, 2024 TIME: 4:46 PM RESPIRATORY THERAPY SIX MINUTE WALK TEST OXIMETRY REPORT Six Minute Walk Test for This Encounter Oxygen Device Liters FIO2 SpO2% HR Activity Feet Speed (MPH) Flag R/A 95 86 Resting R/A 94 110 Six Minute Walk 1528 2.9 R/A 96 79 Recovery 1 minute post R/A 97 80 Recovery 2 minute post R/A 97 78 Recovery 3 minute post General Information Height Weight Pulse Oximetry Site Oximeter Pre Blood Pressure Post Blood Pressure Total Time Spent (min) 171.6 cm (5' 7.56) 64.4 kg (142 lb) R Index Finger Masimo 129/75 188/72 30 _ Distance Walked (meters) Distance Walked (feet) Male Predicted Walk Distance (feet) Male Lower Limit of Normal (feet) Male % Predicted Total Duration Of The Stops (seconds) 465.73 1528 1805.45 1303.45 84.6 -- _ Lowest SpO2 During 6 Minute Walk Pre-Marito Dyspnea Rating Pre-Marito Fatigue Rating Post Marito Dyspnea Rating Post Marito Fatigue Rating 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 94 % 0 0 2 2 -- None Six Minute Walk Trend (Previous Encounters) None SIGNATURE: GINNA Gonzalez PATIENT NAME: Jorge A Rivera DATE: April 07, 2024 TIME: 1:31 [facility]06-11-2024 Procedure note* Sarina Lino RPFT - 04/07/2024 1:31 PM EDTAssociated Order(s): SIX MINUTE WALK RESPIRATORY THERAPY SIX MINUTE WALK TEST OXIMETRY REPORT Six Minute Walk Test for This Encounter Oxygen Device Liters FIO2 SpO2% HR Activity Feet Speed (MPH) Flag R/A 95 86 Resting R/A 94 110 Six Minute Walk 1528 2.9 R/A 96 79 Recovery 1 minute post R/A 97 80 Recovery 2 minute post R/A 97 78 Recovery 3 minute post General Information Height Weight Pulse Oximetry Site Oximeter Pre Blood Pressure Post Blood Pressure Total Time Spent (min) 171.6 cm (5' 7.56) 64.4 kg (142 lb) R Index Finger Masimo 129/75 188/72 30 _ Distance Walked (meters) Distance Walked (feet) Male Predicted Walk Distance (feet) Male Lower Limit of Normal (feet) Male % Predicted Total Duration Of The Stops (seconds) 465.73 1528 1805.45 1303.45 84.6 -- _ Lowest SpO2 During 6 Minute Walk Pre-Marito Dyspnea Rating Pre-Marito Fatigue Rating Post Marito Dyspnea Rating Post Marito Fatigue Rating 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 . The patient required Room Air to complete the test. The distance the patient walked in six minutes is within the predicted normal range. This is the first time patient takes the six minute walk test. The patient perceived their dyspnea during the six minute walk test to be 2- Slight on the modified Marito scale. The patient perceived their fatigue during the six minute walk test to be 2- Slight on the modified Marito scale. I have reviewed the findings and made appropriate revisions as needed. No oxygen need. SIGNATURE: Rosibel Norman MD PATIENT NAME: Jorge A Rivera DATE: April 07, 2024 TIME: 4:46 PM [facility] Procedure note* Sarina Lino RPFT - 04/07/2024 1:31 PM EDTAssociated Order(s): SIX MINUTE WALK RESPIRATORY THERAPY SIX MINUTE WALK TEST OXIMETRY REPORT Six Minute Walk Test for This Encounter Oxygen Device Liters FIO2 SpO2% HR Activity Feet Speed (MPH) Flag R/A 95 86 Resting R/A 94 110 Six Minute Walk 1528 2.9 R/A 96 79 Recovery 1 minute post R/A 97 80 Recovery 2 minute post R/A 97 78 Recovery 3 minute post General Information Height Weight Pulse Oximetry Site Oximeter Pre Blood Pressure Post Blood Pressure Total Time Spent (min) 171.6 cm (5' 7.56) 64.4 kg (142 lb) R Index Finger Masimo 129/75 188/72 30 _ Distance Walked (meters) Distance Walked (feet) Male Predicted Walk Distance (feet) Male Lower Limit of Normal (feet) Male % Predicted Total Duration Of The Stops (seconds) 465.73 1528 1805.45 1303.45 84.6 -- _ Lowest SpO2 During 6 Minute Walk Pre-Marito Dyspnea Rating Pre-Marito Fatigue Rating Post Marito Dyspnea Rating Post Marito Fatigue Rating 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 . The patient required Room Air to complete the test. The distance the patient walked in six minutes is within the predicted normal range. This is the first time patient takes the six minute walk test. The patient perceived their dyspnea during the six minute walk test to be 2- Slight on the modified Marito scale. The patient perceived their fatigue during the six minute walk test to be 2- Slight on the modified Marito scale. I have reviewed the findings and made appropriate revisions as needed. No oxygen need. SIGNATURE: Rosibel Norman MD PATIENT NAME: Jorge A Rivera DATE: April 07, 2024 TIME: 4:46 PM documented in this encounterK[facility]24 NoteHNO ID: [id number] Author: SARINA LINO RPFT Service: ? Author Type: Respiratory Therapist Type: Progress Notes Filed: 04/07/2024 13:32 Note Text: PULM FUNCTION: Provider: Ramon Samuel MD Assisting Tech: Sarina Lino RPFT Spirometry: 1 DLCO: 1 LV - Box: 1 6 [facility] of Present illness Narrative * Sarina Lino RPFT - 04/07/2024 1:27 PM EDT PULM FUNCTION: Provider: Ramon Samuel MD Assisting Tech: Sarina Lino RPFT Spirometry: 1 DLCO: 1 LV - Box: 1 6 MW: 1 documented in this encounterK[facility]06-[facility]-2024 Telephone encounter Note * Telephone Encounter - Maida Phillips MA - 03/30/2024 1:24 PM EDT I spoke with Jacklyn at [facility] in Images she is currently sending the CT Scan of Chest from 11/03/2019 thru PACS. She unable to locate any PFT testing. States I=only labs were done. [facility]-03-[facility] Miscellaneous Notes* Telephone Encounter - Maida Phillips MA - 03/30/2024 1:24 PM EDT I spoke with Jacklyn at [facility] in Images she is currently sending the CT Scan of Chest from 11/03/2019 thru PACS. She unable to locate any PFT testing. States I=only labs were done. * Telephone Encounter - Ramon Samuel MD - 03/30/2024 12:47 PM EDT Please request the ct chest done at [facility] in 11/03/2019 on a CD. Also please request the breathing test done on 2019 Thanks ia documented in this encounterK[facility]06-[facility]-2024 Telephone encounter Note * Telephone Encounter - Ramon Samuel MD - 03/30/2024 12:47 PM EDT Please request the ct chest done at [facility] in 11/03/2019 on a CD. Also please request the breathing test done on 2019 Thanks ia [facility] Work Phone: [phone]) 838-649106-03-2024 History of Present illness Narrative* Ramon Samuel MD - 03/30/2024 12:11 PM EDT Images from the original note were not included. [facility] OFFICE VISIT CONSULT 03/30/2024 Patient Name: Jorge A Rivera PRIMARY CARE PHYSICIAN: No primary care provider on file. REASON FOR CONSULT: emphysema, pleural plaques, asbestos exposure REFERRING PHYSICIAN: Rubio Grimes MD My final recommendations will be communicated to the requesting health care provider by way of the shared medical record for internal providers or by letter via US mail for external providers. CHIEF COMPLAINT: Abnormal ct chest HISTORY OF PRESENT ILLNESS: Jorge A Rivera is a 64 year old male, with a PMH significant for ex smoking, COPD/emphysema, Hypertension, CAD s/p CABG around 2009 , hyponatremia/possible SIADH, here for abnormal chest imaging. 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 No recent hospitalizations, ER visits or steroids use. No complaints today. Most recent Radiology Ct chest 02/2024 Extensive emphysema Multifocal calcified and noncalcified pleural plaques. MMRC Dyspnea Scale: 0. Not troubled by breathlessness except on strenuous exercise Short of breath when hurrying or walking up a slight hill Walks slower than contemporaries on the level because of breathlessness, or has to stop for breath when walking at own pace Stops for breath after about 100 m or after a few minutes on the level Too breathless to leave the house, or breathless when dressing or undressing Environmental/ Occupational Exposure History: Pets: No birds Asbestos: significant exposure Silica: No significant exposure Borden: No significant exposure Mold: No significant exposure Hot tub: No significant exposure Fumes: No significant exposure Metal dust: No significant exposure Beryllium: No significant exposure Dust: No significant exposure Medications: No relevant exposure for interstitial lung diseases PAST MEDICAL HISTORY Diagnosis Date CAD (coronary artery disease) Chronic obstructive pulmonary disease (COPD) (HCC) Essential hypertension 02/19/2024 PAST SURGICAL HISTORY Procedure Laterality Date HEART SURGERY HX PAST SURGICAL HISTORY OF 12/2009 Quadruple bypass surgery FAMILY HISTORY Problem Relation Age of Onset Heart Mother Heart Father Heart Brother Heart Sister Hypertension Mother Cancer Brother lung no pertinent family history Social History Tobacco Use Smoking status: Former Substance Use Topics Alcohol use: No Drug use: No ALLERGIES ALLERGIES No Known Allergies CURRENT OUTPATIENT MEDICATIONS sodium chloride soluble tablet 1 g Take 2 tablets by mouth three times a day. lisinopril (ZESTRIL) 10 mg tablet Take 10 mg by mouth once daily. atorvastatin (LIPITOR) 10 mg tablet Take 5 mg by mouth once daily. atenolol (TENORMIN) 25 mg tablet Take 25 mg by mouth once daily. coenzyme Q10 (H2Q COQ10) 200 mg/gram powd Take by mouth once daily. aspirin, enteric coated (ASPIRIN, ENTERIC COATED) 81 mg EC tablet Take 81 mg by mouth once daily. Minburn-3 Fatty Acids-Vitamin E (FISH OIL) 1,000 mg cap Take 1 capsule by mouth once daily. Multivitamin capsule Take 1 capsule by mouth once daily. REVIEW OF SYSTEMS Review of Systems Constitutional: Negative for chills, fever and weight loss. Respiratory: Negative for cough, hemoptysis, sputum production, shortness of breath and wheezing. Cardiovascular: Negative for leg swelling. The remainder of review of systems was negative. PHYSICAL EXAM BP 146/66 Pulse 72 Ht 177.8 cm (5' 10) Wt 66 kg (145 lb 8.1 oz) SpO2 98% BMI 20.88 kg/m General appearance: Well appearing, alert, in no acute distress, well-hydrated, well nourished. Eyes: PERRLA Neck: no palpable masses Lungs: Lungs clear to auscultation. No wheezing, rhonchi, rales Heart: RRR without murmur, gallop, or rubs. No ectopy , normal peripheral pulses, no peripheral edema Abdomen: Abdomen soft, non-tender. Bowel sounds normal. No masses, organomegaly Extremities: Normal, Warm, No cyanosis, no clubbing, No edema, and Nontender Neuro: no focal weakness Psychiatry: Alert, Oriented X 3 DATA Diagnostic tests reviewed and analysed for today's visit, including films and specimens, personallyreviewed by me: Most recent labs and imaging results. No results found for this or any previous visit (from the past 8760 hour(s)). No results found for this or any previous visit (from the past 36888 hour(s)). XR CHEST 2V FRONTAL/LAT Result Date: 02/20/2024 IMPRESSION: Pleural thickening along the left lateral hemithorax. CT chest recommended for further evaluation ACTIONABLE RESULT: FOLLOW-UP Acuity: Actionable Findings: Thoracic-Other Routing Code: CT_1 Recommendation: CT Chest WO IVCON Time Frame: At the discretion of the clinical team. COMMUNICATION: Results will be communicated with the ordering provider via [employer] staff message or phone message by [employer] within 2 business days of report finalization. --END OF FINDING-- Drop Wirer: FABRICE Transcribe Date/Time: Feb 20 2024 1:48P Dictated by : CASANDRA RITTER MD This examination was interpreted and the report reviewed and electronically signed by: CASANDRA RITTER MD on Feb 20 2024 1:50PM EST CT CHEST W IVCON Result Date: 03/18/2024 IMPRESSION: Multifocal calcified and noncalcified pleural plaques. Clinical correlation recommended. Additionally, 6-12 month follow-up recommended Extensive emphysema as described No suspicious parenchymal nodule or adenopathy ACTIONABLE RESULT: FOLLOW-UP Acuity: Actionable Findings: Thoracic-Other Routing Code: CT_1 Recommendation: CT Chest WO IVCON Time Frame: 6-12 months COMMUNICATION: Results will be communicated with the ordering provider via [employer] staff message or phone message by [employer] within 2 business days of report finalization. --END OF FINDING-- Drop Wirer: FABRICE Transcribe Date/Time: Mar 18 2024 8:21A Dictated by : CASANDRA RITTER MD This examination wasinterpreted and the report reviewed and electronically signed by: CASANDRA RITTER MD on March [id number] EST Immunizations: Unknown ASSESSMENT/PLAN ASSESSMENT/PLAN: 1. Pleural plaque - ICD9: 511.0, ICD10: J92.9 (primary diagnosis) Calcified and non calcified seen on ct chest 01/2024 Ct chest 2020: no mention of pleural plaques Will request the ct chest from nikhil on a CD Repeat ct chest yearly - SPIROMETRY WITH DILATOR IF OBSTRUCTED - LUNG VOLUMES - LUNG DIFFUSION CAPACITY (DLCO) - SIX MINUTE WALK 2. Centrilobular emphysema (HCC) - ICD9: 492.8, ICD10: J43.2 Not using any inhalers Does not seem to be symptomatic - SPIROMETRY WITH DILATOR IF OBSTRUCTED - LUNG VOLUMES - LUNG DIFFUSION CAPACITY (DLCO) - SIX MINUTE WALK 3. Interstitial pulmonary disease (HCC) - ICD9: 515, ICD10: J84.9 Asbestos exposure No evidence of asbestosis - CT CHEST WO IVCON 4. Ex-smoker - ICD9: V15.82, ICD10: Z87.891 In remission 5. Hyponatremia - ICD9: 276.1, ICD10: E87.1 MD Ramon Machado MD, MICHELLE Staff, Respiratory [place] [facility] CC: No primary care provider on file. Rubio Grimes MD documented in this encounterKettering [facility]05-22-2024 Telephone encounter Note * Telephone Encounter - Rubio Grimes MD - 03/18/2024 10:07 AM EDT Results of the CT of the chest discussed with the patient. He has bilateral pleural plaques,; whichcould be from asbestosis exposure. I asked him to make an appointment with pulmonary for a follow-up on this. He will repeat his sodium next week. Verbalized understanding. [facility]05-22-2024 Miscellaneous Notes* Telephone Encounter - Rubio Grimes MD - 03/18/2024 10:07 AM EDT Results of the CT of the chest discussed with the patient. He has bilateral pleural plaques,; whichcould be from asbestosis exposure. I asked him to make an appointment with pulmonary for a follow-up on this. He will repeat his sodium next week. Verbalized understanding. documented in this encounterKet[facility]05-17-2024 History of Present illness Narrative* Jennifer Landers RT(R) - 03/13/2024 11:20 AM EDT Radiology Service Progress Note PATIENT NAME: Jorge A Rivera DATE OF SERVICE: March 13, 2024 TIME: 11:34 AM PATIENT IDENTITY VERIFICATION COMPLETED USING TWO (2) IDENTIFIERS: Name and Date of confirmedby patient verbally. FALL SCREENING: Has the patient had 2 falls in the last year or 1 fall with injury or currently using an Ambulatory Assistive Device (Walker, Cane, Wheelchair, Crutches, etc.)? No PATIENT GENDER DATA: Male PATIENT RELEVANT IMPLANT DATA REVIEWED: Not Applicable PATIENT PRESENTS WITH AN IMPLANTABLE OR ATTACHED SENIOR GEOTECHNICAL ENGINEER: No RADIOLOGY DEPARTMENT: CT; Exam(s) Completed: Chest PERIPHERAL IV DATA: 22g left ac. D/c after scan SIGNED BY: RT Spike(R) March 13, 2024 11:34 AM documented in this encounterKet[facility]04-25-2024 Telephone encounter Note * Telephone Encounter - Rubio Grimes MD - 02/20/2024 4:21 PM EDT Discussed with the patient that he possibly has SIADH. Last sodium is 128. Advised to start taking sodium chloride pills 1 g twice daily. Repeat labs in 1 month. Also chest x-ray reveals left pleuralthickening; apparently he had a collapsed lung but does not remember the side. CT chest with contrast ordered and advised to see pulmonary. [address]25-2024 Miscellaneous Notes* Telephone Encounter - Rubio Grimes MD - 02/20/2024 4:21 PM EDT Discussed with the patient that he possibly has SIADH. Last sodium is 128. Advised to start taking sodium chloride pills 1 g twice daily. Repeat labs in 1 month. Also chest x-ray reveals left pleuralthickening; apparently he had a collapsed lung but does not remember the side. CT chest with contrast ordered and advised to see pulmonary. documented in this encounterKet[facility]04-25-2024 Telephone encounter Note * Telephone Encounter - Nelia Vinson LPN - 02/20/2024 4:20 PM EDT Message forwarded to Dr. Grimes [address]25-2024 Miscellaneous Notes* Telephone Encounter - Nelia Vinson LPN - 02/20/2024 4:20 PM EDT Message forwarded to Dr. Grimes * Telephone Encounter - Jean Paul Harper RN - 02/20/2024 4:08 PM EDT Pt returning call from to go over lab results. Pt # [phone] documented in this encounterKet[facility]04-25-2024 Telephone encounter Note * Telephone Encounter - Jean Paul Harper RN - 02/20/2024 4:08 PM EDT Pt returning call from to go over lab results. Pt # [phone] [facility]04-24-2024 History of Present illness Narrative* Hortensia Herrera CT - 02/19/2024 9:15 AM EDT Radiology Service Progress Note PATIENT NAME: Jorge A Rivera DATE OF SERVICE: February 19, 2024 TIME: 9:09 AM PATIENT IDENTITY VERIFICATION COMPLETED USING TWO (2) IDENTIFIERS: Name and Date of confirmedby patient verbally. FALL SCREENING: Has the patient had 2 falls in the last year or 1 fall with injury or currently using an Ambulatory Assistive Device (Walker, Cane, Wheelchair, Crutches, etc.)? No PATIENT GENDER DATA: Male PATIENT RELEVANT IMPLANT DATA REVIEWED: Not Applicable PATIENT PRESENTS WITH AN IMPLANTABLE OR ATTACHED SENIOR GEOTECHNICAL ENGINEER: No RADIOLOGY DEPARTMENT: General X-ray: Exam(s) Completed: Chest X-Ray PERIPHERAL IV DATA: Not applicable SIGNED BY: ADALID Copeland February 19, 2024 9:09 AM documented in this encounterKettering Health [facility]04-24-2024 Instructions* Patient Instructions* Rubio Grimes MD - 02/19/2024 8:42 AM EDT Fluid restriction of 1500 ml per day. Labs today, then every 3 months Schedule a Chest Xray. documented in this encounterKettering [facility]04-24-2024 History of Present illness Narrative* Rubio Grimes MD - 02/19/2024 8:00 AM EDT [facility] SERVICE DATE: 02/19/2024 REASON FOR CONSULT: I am asked to see this patient in consultation for my opinion regarding hyponatremia. My recommendations will be communicated by way of shared medical record, fax, or mail. REQUESTING PHYSICIAN: No ref. provider found PRIMARY CARE PHYSICIAN: No primary care provider on file. CHIEF COMPLAINT: Hyponatremia HPI: 63-year-old male with medical history significant for Hypertension, COPD, CAD s/p CABG around 2009 has been referred for hyponatremia; possible SIADH. No labs available for review. Apparently he has known that he has Hyponatremia for lat few years. Back in 2019 he was admitted to [facility] with Na of 117; He was advised to fluid restrict to around 1.5L a day. He was being seen by Dr Guan (with [facility]) who up'ed his restriction to around 1.8L (apparently his kidneys had dried up'). His Na would average between 128-131. A month back he had a flu and his Na dropped down to 114. Apparently he was given something through theIV. After discharge his last Na was 131 (at this time his FR was around 1.5 L) He has had HTN for several years but he is off medication until he had low Na when he started taking more salt and he had to put back on anti-hypertensives. He quit smoking before his bypass surgery in 2009. Does not drink alcohol. No h/o Liver problems or CHF. Denies shortness of breath, orthopneaor swelling of lower extremities. 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 Monitors blood pressure at home. Readings: 130s/70-80s. Eats mostly cooked food at home. He does add extra salt to the food. He endorses that his weight has mostly been stable except for small drop in weight of around 5 pounds when he was last hospitalized. Notes and labs from Dr Guan reviewed: Serum sodium 132 on 12/29/2019. Urine sodium was 56 and urine osmolality was 291. TSH and cortisol were normal. Was diagnosed with SIADH and put on fluid restriction. Apparently PTH RP and CT chest were also checked and they were normal. Patient is mostly here [facility] opinion. PAST MEDICAL HISTORY: PAST MEDICAL HISTORY Diagnosis Date CAD (coronary artery disease) Chronic obstructive pulmonary disease (COPD) (HCC) PAST SURGICAL HISTORY: PAST SURGICAL HISTORY Procedure Laterality Date HEART SURGERY HX PAST SURGICAL HISTORY OF 12/2009 Quadruple bypass surgery FAMILY HISTORY: FAMILY HISTORY Problem Relation Age of Onset Heart Mother Heart Father Heart Brother Heart Sister Hypertension Mother Cancer Brother lung SOCIAL HISTORY: Social History Tobacco Use Smoking status: Former Substance Use Topics Alcohol use: No Drug use: No MEDICATIONS: atenolol (TENORMIN) 25 mg tablet Take 25 mg by mouth once daily. coenzyme Q10 (H2Q COQ10) 200 mg/gram powd Take by mouth once daily. aspirin, enteric coated (ASPIRIN, ENTERIC COATED) 81 mg EC tablet Take 81 mg by mouth once daily. Minburn-3 Fatty Acids-Vitamin E (FISH OIL) 1,000 mg cap Take 1 capsule by mouth once daily. Multivitamin capsule Take 1 capsule by mouth once daily. atorvastatin (LIPITOR) 20 mg tablet Take 10 mg by mouth once daily. ALLERGIES: ALLERGIES No Known Allergies REVIEW OF SYSTEMS: Constitutional: No fevers, chills, weight loss Eyes: No loss in vision, photophobia Ear, Nose, and Throat: No epistaxis, nasal congestion Cardiovascular: No chest pain, ALBERT, SOB, palpitations Respiratory: No cough, hemoptysis Gastrointestinal: No diarrhea, constipation Genitourinary: No dysuria, polyuria Musculoskeletal: No joint pain, morning stiffness Skin: No rash, no ulcers Neurological: No headaches, seizures, paresthesias Psychiatric: No depression, anxiety Endocrine: No hair loss, no heat intolerance Hematologic:No easy bruising, easy bleeding PHYSICAL EXAM: BP 131/79 (BP Site: Right Arm, BP Position: Sitting, BP Cuff Size: Regular Adult) Pulse 70 Resp16 Ht 177.8 cm (5' 10) Wt 64.7 kg (142 lb 10.2 oz) BMI 20.47 kg/m BP - standardized method Pulse 1 BP #1: 134/85 Pulse #1: 70 beats/min 2 BP #2 : 130/75 Pulse #2 : 70 beats/min 3 BP #3 : 130/79 Pulse #3 : 72 beats/min Average Average BP: 131/79 Average Pulse: 70 beats/min Orthostatic vitals Supine Sitting Standing BP cuff location BP cuff location: (Right Arm) BP cuff size BP cuff size: (Regular Adult Cuff) Comments for BP values First BP (right) First BP (left) Constitutional: No acute distress, Responsive, thin built. Eyes: Conjunctiva clear, PERRL. Ear, Nose, and Throat: Hearing normal, Lips normal. Neck:Trachea midline, No jugular venous distension. Cardiovascular: Regular rate and ryhthm, normal S1 and S2, no murmurs, rubs, or gallops. Respiratory: Normal respiratory effort, Lungs clear bilaterally. Abdomen:Soft, non-tender, non-distended. Normal bowel sounds. No hepatosplenomegaly Musculoskeletal: No clubbing or cyanosis of digits. Pedal edema absent. Neurologic: Alert and oriented, no focal deficits Psychiatric: Co-operative, Normal mood/affect. DATA: Diagnostic tests reviewed for today's visit: No results found for: GLUC, K, NA, CHLOR, CO2, CREAT, BUN, ANION, CA, GFR, EGFRAA, NAAGFR ASSESSMENT: Chronic hyponatremia: Past records reviewed; Urine sodium was 56 and urine osmolality was 291. TSH and cortisol were normal. Hyponatremia seems to be secondary to SIADH. Patient not quite strict withfluid restriction; likely drink around 64 ounces a day. Hypertension: Patient is on lisinopril 10 mg daily and atenolol 25 mg daily. Dyslipidemia: On atorvastatin 5 mg daily. Apparently recent cholesterol panel was within acceptablelimits. PLAN: Check plasma osm, TSH, AM cortisol, uric acid. Check Urine os and urine Na. Advised to restrict total fluid restriction of 1.5L/day (he has been doing around 2 L a day) Might need to be on Ure-Na if fluid restriction does not work. Check x-ray of the chest. Other routine cancer screening as per PCP. Labs today and then 3 months. Follow-up in 3 months with or Hair. I spent a total of 70 minutes on the date of the service which included preparing to see the patient, [id number] patient care, completing clinical documentation, obtaining and/or reviewing separately obtained history, performing a medically appropriate examination, counseling and educating the pat ient/family/caregiver, and ordering medications, tests, or procedures. SIGNATURE: Rubio Grimes MD PATIENT NAME: Jorge A Rivera OFFICE NUMBER: [phone] CC: REFERRING PROVIDER: No ref. provider found PRIMARY CARE PHYSICIAN: No primary care provider on file. documented in this encounterKet[facility]03-08-2024 Progress note Author [facility] January 03, 2024 8:16am Note Date/Time January 03, 2024 8:15 am [facility] Medical Records Department [address] [place] [address] Progress Note 01/03/24 0811 MR#: [id number] Acct: [id number] Name: JORGE A RIVERA Rep #:[id number] : 1960 63 From: Judy Hansen PCP: Dr. Rick Gaffney, DO Status:ADM IN Location: [place] [address] Progress Note sodium improved to 126 after received one dose of tolvaptan 15mg last night. vss acute hyponatremia due to SIADH improved. Recheck level as outpt in 1 week. ok to stop iv fluids when taking po well. influenza on tamiflu 01/03/24 0816 <Electronically signed by Judy Roge > [facility] Cosigner Signature (if applicable): CC: ~ Signed [facility] Work Phone: [phone]) 800-460203-07-2024 Consult note Author [facility] January 02, 2024 5:59pm Note Date/Time January 02, 2024 5:53 pm [facility] Medical Records Department [address] [place] [address] Consultation - Nephrology 01/02/24 1218 MR#: [id number] Acct: [id number] Name: JORGE A RIVERA Rep #:[id number] : 1960 63 From: Judy Hansen PCP: Dr. Rick Gaffney, DO Status:ADM IN Location: [place] [address] Assessment & Plan Assessment/Plan (1) Hyponatremia: PLAN: sodium 116 exacerbated from influenza, pulmonary symptoms with cough, wheezing. Poor intake, anorexia, nausea. Check urine sodium. May need hypertonic saline or dose of tolvaptan if hyponatremia worsens. (2) Influenza: PLAN: supportive care, iv fluids. treated with tamiflu (3) History of SIADH: PLAN: sodium 129 in September 2023 (4) Essential hypertension: PLAN: resume home meds (5) Atherosclerotic heart disease of [place] coronary artery without angina pectoris: QUALIFIERS: [place] vs. transplanted heart: [place] heart QualifiedCode(s): I25.10 - Atherosclerotic heart disease of [place] coronary artery without angina pectoris HPI Consult Data Date of Consult: 01/02/24 HPI Narrative Reason for Consultation: hyponatremia HPI Narrative: JORGE A RIVERA, is a 63 M who presents to [facility] ED for persistent weakness, lightheadedness, poor appetite, nausea since Saturday. Seen in urgent care and wasdiagnosed with influenza treated wtih tamiflu. Complains of myalgias, fever, chills, cough with wheezing. Sodium low at 116. Hx of SIADH with sodium at 129. Currently on NSS. Creatinine 0.54. Denies sick contacts at home. 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 [facility] Medical History Atherosclerotic heart disease of [place] coronary artery without angina pectoris Carotid bruit COPD (chronic obstructive pulmonary disease) Essential hypertension History of SIADH Hyperlipidemia Hypertension Home Medications aspirin 81 mg tablet,delayed release (Adult Aspirin Regimen) 81 mg PO QDAY heart11/29/17 [History Last Taken 10/31/19] coenzyme Q10 100 mg capsule (Co Q-10) 100 mg PO QDAY vitamin 11/29/17 [History Last Taken 11/01/19] multivitamin 1 tab PO QDAY vitamin 11/29/17 [History Last Taken 11/01/19] omega-3 fatty acids 1,000 mg capsule (Fish Oil Concentrate) 1,[address] [facility] 11/29/17 [History Last Taken 11/01/19] atorvastatin 10 mg tablet See Rx Instructions .Route .COMPLEX #45 tabs 01/07/23 [Rx Last Taken Unknown] lisinopril 10 mg tablet See Rx Instructions .Route .COMPLEX #90 tabs 07/11/23 [Rx Last Taken Unknown] oseltamivir 75 mg capsule (Tamiflu) 75 mg PO Q12H 5 days #10 caps 12/29/23 [Rx Last Taken Unknown] atenolol 25 mg tablet 25 mg PO QDAY #90 tabs 12/31/23 [Rx Last Taken Unknown] Allergy/AdvReac Type Severity Reaction Status Date / Time ibuprofen [From Advil] AdvReac Intermediate SOB Verified 01/01/24 11:53 Family History Father CAD (coronary artery disease) S/P CABG (coronary artery bypass graft) Mother CAD (coronary artery disease) Hypertension Kidney disease Brother CAD (coronary artery disease) S/P CABG (coronary artery bypass graft) Sister S/P CABG (coronary artery bypass graft) CAD (coronary artery disease) Diabetes Surgical History History of coronary artery bypass surgery (~01/11/10) History of hand surgery History of left heart catheterization History of tonsillectomy Social History (Updated 01/01/24 @ 18:13 by Karla Guo) household members: spouse Smoking Status: Former smoker quit date: 10/28/09 pack-years: 30 alcohol intake: never substance use type: does not use caffeine: Yes Type: coffee Number of servings: 2 ROS Constitutional Constitutional: Reports chills, fever(s), malaise and weakness Cardiovascular Cardiovascular: Denies chest pain or leg edema Respiratory/Chest Respiratory/Chest: Reports productive cough and wheezing; Denies shortness of breath at rest Gastrointestinal Gastrointestinal: Reports anorexia and nausea; Denies abdominal pain or diarrhea Genitourinary Genitourinary: Denies dysuria, flank pain or hematuria Musculoskeletal Musculoskeletal: Reports myalgias and other Details: fatigue, weakness Psychiatric Psychiatric: Denies anxiety or confusion Endocrine Endocrinology: Reports fatigue Hematologic/Lymphatic Hematologic/Lymphatic: Denies anemia Physical Exam Const alert, oriented x3 and no apparent distress Constitutional Narrative: gen weakness HEENT normocephalic Resp Auscultation: rhonchi and wheezes Cardio regular rate GI non-tender and non-distended Auscultation: normoactive bowel sounds Palpation: soft Extremity no clubbing, cyanosis or edema Skin no rashes or lesions noted Neuro CN's II-XII intact bilaterally Neuro Narrative: gen weakness Psych cooperative Lab / Micro Data 01/02/24 05:55 01/02/24 05:55 Labs: Laboratory Results - last 24 hr 01/01/24 12:28: WBC 6.9, RBC 4.01 L, Hgb 13.2, Hct 35.9 L, MCV 89.5, MCH 32.9 H,MCHC 36.8 H, RDW Std Deviation 39.8, RDW Coeff of Murphy 12.1, Plt Count 211, MPV 11.5, Immature Gran % (Auto) 0.400, Neut % (Auto) 74.5 H, Lymph % (Auto) 15.7 L,[place] % (Auto) 8.7, Eos % (Auto) 0.4, Baso % (Auto) 0.3, Absolute Neuts (auto) 5.1, Absolute Lymphs (auto) 1.08, Nucleated RBC % 0.3, Sodium 115 L*, Potassium 4.3, Chloride 83 L, Carbon Dioxide 26.0, Anion Gap 6, BUN 8, Creatinine 0.68 L, Estim Creat Clear Calc 101.99, Est GFR (MDRD) Af Amer 151, Est GFR (MDRD) Non-Af125, BUN/Creatinine Ratio 11.8, Glucose 121 H, Calcium 8.3 L 01/01/24 13:31: Serum Osmolality 241 L 01/01/24 13:50: Urine Osmolality 351 01/01/24 17:30: Sodium 116 L*, Potassium 3.2 L, Chloride 82 L, Carbon Dioxide 25.0, Anion Gap 9, BUN 7, Creatinine 0.57 L, Estim Creat Clear Calc 117.78, Est GFR (MDRD) Af Amer 184, Est GFR (MDRD) Non-Af 152, BUN/Creatinine Ratio 12.2, Glucose 118 H, Calcium 7.9 L, Magnesium 1.9 01/02/24 05:55: WBC 7.3, RBC 4.12 L, Hgb 13.1, Hct 35.9 L, MCV 87.1, MCH 31.8, MCHC 36.5 H, RDW Std Deviation 37.7, RDW Coeff of Murphy 11.7, Plt Count 173, MPV 10.4, Immature Gran % (Auto) 0.400, Neut % (Auto) 70.3 H, Lymph % (Auto) 19.8, [place] % (Auto) 8.6, Eos % (Auto) 0.5, Baso % (Auto) 0.4, Absolute Neuts (auto) 5.2, Absolute Lymphs (auto) 1.45, Nucleated RBC % 0, Sodium 116 L*, Potassium 4.1, Chloride 83 L, Carbon Dioxide 24.0, Anion Gap 9, BUN 6 L, Creatinine 0.54 L, Estim Creat Clear Calc 124.71, Est GFR (MDRD) Af Amer 198, Est GFR (MDRD) Non-Af 164, BUN/Creatinine Ratio 11.2, Glucose 89, Calcium 8.3 L, Phosphorus 2.5, Magnesium 2.0, Total Bilirubin 1.10 H, AST 25, ALT 30, Alkaline Phosphatase 105,Total Protein 6.9, Albumin 3.3, Globulin 3.6, Albumin/Globulin Ratio 0.9, TSH 0.63 01/02/24 1989 <Electronically signed by Judy Guan DO> Cosigner Signature (if applicable): CC: Dr. Judy Guan, ; Dr. Josee Guan, ; Dr. Rick Gaffney DO~ Signed [facility] Work Phone: [phone]) 261-286403-07-2024 Progress note Author Bull Gusman [facility] January 03, 2024 1:51pm Note Date/Time January 02, 2024 10:1 5am [facility] Medical Records Department [address] [place] [address] Progress Note - Hospitalist 01/02/24 1011 MR#: [id number] Acct: [id number] Name: JORGE A RIVERA Rep #:[id number] : 1960 63 From: Bull Grayson PCP: Dr. Rick Gaffney DO Status:ADM IN Location: [place] [address] Reason for Visit Reason for Visit: Diagnoses Hypo-osmolality and hyponatremia (01/01/24) Influenza due to unidentified influenza virus with other respiratory manifestations (01/01/24) Weakness (01/01/24) Personal history of other endocrine, nutritional and metabolic disease (01/01/24) Objective Data Objective Data Vital Signs: Vital Signs Temp Pulse Resp BP Pulse Ox O2 Del Method 97.2 F L 71 16 164/88 H 99 Room Air 01/02/24 08:50 01/02/24 08:50 01/02/24 08:50 01/02/24 08:50 01/02/24 08:50 01/02/24 08:50 Oxygen Delivery Method Room Air Weight: 140 lb 10.479 oz Body Mass Index (BMI) 20.2 Intake & Output: Intake and Output for Last 24 Hours 12/31/23 01/01/24 01/02/24 23:59 23:59 23:59 Intake Total 333.33 / 333.33 Balance 333.33 / 333.33 Lab / Micro Data 01/02/24 05:55 01/02/24 05:55 Labs: Laboratory Results - last 24 hr 01/01/24 12:28: WBC 6.9, RBC 4.01 L, Hgb 13.2, Hct 35.9 L, MCV 89.5, MCH 32.9 H,MCHC 36.8 H, RDW Std Deviation 39.8, RDW Coeff of [place] 12.1, Plt Count 211, MPV 11.5, Immature Gran % (Auto) 0.400, Neut % (Auto) 74.5 H, Lymph % (Auto) 15.7 L,[place] % (Auto) 8.7, Eos % (Auto) 0.4, Baso % (Auto) 0.3, Absolute Neuts (auto) 5.1, Absolute Lymphs (auto) 1.08, Nucleated RBC % 0.3, Sodium 115 L*, Potassium 4.3, Chloride 83 L, Carbon Dioxide 26.0, Anion Gap 6, BUN 8, Creatinine 0.68 L, Estim Creat Clear Calc 101.99, Est GFR (MDRD) Af Amer 151, Est GFR (MDRD) Non-Af125, BUN/Creatinine Ratio 11.8, Glucose 121 H, Calcium 8.3 L 01/01/24 13:31: Serum Osmolality 241 L 01/01/24 13:50: Urine Osmolality 351 01/01/24 17:30: Sodium 116 L*, Potassium 3.2 L, Chloride 82 L, Carbon Dioxide 25.0, Anion Gap 9, BUN 7, Creatinine 0.57 L, Estim Creat Clear Calc 117.78, Est GFR (MDRD) Af Amer 184, Est GFR (MDRD) Non-Af 152, BUN/Creatinine Ratio 12.2, Glucose 118 H, Calcium 7.9 L, Magnesium 1.9 01/02/24 05:55: WBC 7.3, RBC 4.12 L, Hgb 13.1, Hct 35.9 L, MCV 87.1, MCH 31.8, MCHC 36.5 H, RDW Std Deviation 37.7, RDW Coeff of [place] 11.7, Plt Count 173, MPV 10.4, Immature Gran % (Auto) 0.400, Neut % (Auto) 70.3 H, Lymph % (Auto) 19.8, [place] % (Auto) 8.6, Eos % (Auto) 0.5, Baso % (Auto) 0.4, Absolute Neuts (auto) 5.2, Absolute Lymphs (auto) 1.45, Nucleated RBC % 0, Sodium 116 L*, Potassium 4.1, Chloride 83 L, Carbon Dioxide 24.0, Anion Gap 9, BUN 6 L, Creatinine 0.54 L, Estim Creat Clear Calc 124.71, Est GFR (MDRD) Af Amer 198, Est GFR (MDRD) Non-Af 164, BUN/Creatinine Ratio 11.2, Glucose 89, Calcium 8.3 L, Phosphorus 2.5, Magnesium 2.0, Total Bilirubin 1.10 H, AST 25, ALT 30, Alkaline Phosphatase 105,Total Protein 6.9, Albumin 3.3, Globulin 3.6, Albumin/Globulin Ratio 0.9, TSH 0.63 Assessment & Plan Assessment/Plan (1) Hyponatremia: (2) History of SIADH: (3) Influenza: (4) Generalized weakness: PLAN: Plan Patient came to ED with generalized weakness, decreased appetite, mild headache,decreased urine output, dizziness since diagnosed with influenza on December 28. Noimprovement in symptoms despite taking Tamiflu. Acute on chronic hyponatremia: -Patient has been diagnosed with SIADH and typically follows fluid restriction and follows Dr. Judy Guan. Currently patient looks dehydrated with poor solute intake and decreased appetite therefore IV fluid normal saline -P.o. intake has been poor with regards to solute and I suspect that he has had decreased solute and ongoing fluid intake resulting in worsening of his hyponatremia. IV fluid ordered. Repeat sodium is ordered every 4 hourly. Patient on sodium tablet. History of SIADH -As above -Managed with fluid restriction at baseline -Baseline sodium runs between 128 and 130 over the last year Influenza A -Diagnosed on 12/29/2023 -Has been on Tamiflu since that point in time -Has 5 tablets left we will continue -Supportive care with as needed antitussive and nebulizers Generalized weakness -Likely related to influenza A plus hyponatremia -PT consultation -Should improve with improvement in sodium and as he recovers from his influenzainfection -Will check CBC to rule out any anemia that could be contributing CAD/HTN/HPL -01/11/2010 KNOTT to LAD, EDYTA insitu to the RCA and SVG to DX, SVG to [facility] per Dr. Rubio -Continue home aspirin -Continue home atenolol -Continue home atorvastatin -Continue home lisinopril COPD -Patient is not oxygen dependent and takes no inhalers for this at baseline -Recommend outpatient follow-up if symptoms change History of tobacco abuse -Recommend ongoing cessation -As needed albuterol as patient did have some wheezing on presentation likely related to his influenza A infection -Quit smoking in 2009 but has [id number] history DVT prophylaxis -Lovenox subcu daily CODE STATUS -Full code is verified on admission Charges/Coding Visit Charges Inpatient E&M: 93862 Subs Hosp L2 01/02/24 8008 <Electronically signed by Bull Gusman MD> Cosigner Signature (if applicable): CC: ~ Signed ADDENDUM by Dr. Bull Gusman MD on 01/03/24 at 1351 Addendum Seen and examined. Patient is dehydrated. He said he has not been drinking for last 2 to 3 days feeling sick probably from acute influenza infection on Tamiflu. IV fluid normal saline is started. Physical exam General: Alert, Oriented x3, Cooperative, clinically dehydrated. HEENT: Atraumatic, PERRLA, EOMI, Normocephalic Oral: Oral mucosa dry no Gingival or Mucosal Lesions/ Ulcerations Neck: Supple, No JVD, Negative Carotid Bruits Chest wall/Lungs: Air entry diminished in bilateral lung bases. No crepitation/rhonchi Cardiovascular: Regular rate, Regular Rhythm, Normal S1, Normal S2, No M/G/R Abdomen: Bowel Sounds Present, Soft, Non Tender, Non-Distended : No dysuria. No renal angle tenderness. No suprapubic tenderness. Extremities: No edema, Capillary Refill Less than 3 Seconds Skin: No rashes, No breakdown Musculoskeletal: No Tenderness to Palpation of Joints or Extremities. ROM intact. Neurological: Cranial nerves II-XII grossly intact, DTR 2+/4. No acute focal neurological deficit. Psych/Mental Status: Normal Affect, Appropriate. 01/03/24 1351<Electronically signed by Bull Gusman MD> Cosigner Signature (if applicable): cc: ~* Signed [facility] Work Phone: 1(348) 995-204203-06-2024 Discharge summary Author Dereck Delvalle [facility] January 01, 2024 4:49pm Note Date/Time January 01, 2024 1:23 pm [facility] Medical Records Department [address] [place] [address] Emergency Department Summary 01/01/24 MR#: [id number] Acct: [id number] Name: JORGE A RIVERA Rep #:[id number] : 1960 63 From: Dereck Delvalle MD PCP: Dr. Rick Gaffney, DO Status:REG ER Location: ED HPI History of Present Illness Chief Complaint: Weakness Detail of Chief Complaint: Weakness, orthostatic symptoms, no improvement after Tamiflu Informant: patient and spouse/S.O. Onset/Context/Timing Onset: Days Context: Gradual Onset Timing: Continuous Quality: Diagnosed with influenza December 28. No improvement and now generalized weakn Current Severity: Mild Maximum Severity: Moderate Worsened by: Upright Relieved by: Supine Associated Symptoms Associated Symptoms: Decreased appetite, decreased urine and orthostatic symptoms Narrative Narrative: Patient reports onset of symptoms this past . He was seen on December 28 at the urgent care and diagnosed with influenza. He presents because hehas had no improvement in spite of taking Tamiflu. He does report mild headache. Does report congestion, shortness of breath and intermittent wheezing. Patient states he has no appetite. He said poor p.o. intake both solids and liquids. Had decreased urine output. He does endorse dry mouth, thirst and orthostatic lightheadedness. He denies black or maroon-colored stool. He did have diarrhea initially. He had no diarrhea recently. He did endorse myalgias arthralgias initially. Prior similar symptoms: No Recent Illness/Hospitalization: Yes PFSH PFSH Medical History Atherosclerotic heart disease of [place] coronary artery without angina pectoris Carotid bruit COPD (chronic obstructive pulmonary disease) Essential hypertension History of SIA Hyperlipidemia Hypertension Home Medications aspirin 81 mg tablet,delayed release (Adult Aspirin Regimen) 81 mg PO QDAY heart11/29/17 [History Last Taken 10/31/19] coenzyme Q10 100 mg capsule (Co Q-10) 100 mg PO QDAY vitamin 11/29/17 [History Last Taken 11/01/19] multivitamin 1 tab PO QDAY vitamin 11/29/17 [History Last Taken 11/01/19] omega-3 fatty acids 1,000 mg capsule (Fish Oil Concentrate) 1,[address] [facility] 11/29/17 [History Last Taken 11/01/19] atorvastatin 10 mg tablet See Rx Instructions .Route .COMPLEX #45 tabs 01/07/23 [Rx Last Taken Unknown] lisinopril 10 mg tablet See Rx Instructions .Route .COMPLEX #90 tabs 07/11/23 [Rx Last Taken Unknown] oseltamivir 75 mg capsule (Tamiflu) 75 mg PO Q12H 5 days #10 caps 12/29/23 [Rx Last Taken Unknown] atenolol 25 mg tablet 25 mg PO QDAY #90 tabs 12/31/23 [Rx Last Taken Unknown] Allergy/AdvReac Type Severity Reaction Status Date / Time ibuprofen [From Advil] AdvReac Intermediate SOB Verified 01/01/24 11:53 Family History Father CAD (coronary artery disease) S/P CABG (coronary artery bypass graft) Mother CAD (coronary artery disease) Hypertension Kidney disease Brother CAD (coronary artery disease) S/P CABG (coronary artery bypass graft) Sister S/P CABG (coronary artery bypass graft) CAD (coronary artery disease) Diabetes Surgical History History of coronary artery bypass surgery (~01/11/10) History of hand surgery History of left heart catheterization History of tonsillectomy Social History Smoking Status: Former smoker quit date: 10/28/09 pack-years: 30 alcohol intake: never substance use type: does not use caffeine: Yes Type: coffee Number of servings: 2 ROS ROS ED Constitutional Constitutional ED: Reports chills, fever(s) and subjective; Denies sweats Eyes Eyes: Denies blurry vision, change in vision or diplopia ENT ENT ED: Reports rhinorrhea and sore throat; Denies ear pain Cardiovascular Cardiovascular: Denies chest pain, orthopnea, palpitations or paroxysmal nocturnal dyspnea Respiratory/Chest Respiratory/Chest: Reports cough; Denies dyspnea on exertion, orthopnea, paroxysmal nocturnal dyspnea or sputum Gastrointestinal Gastrointestinal: Reports diarrhea; Denies abdominal pain, nausea or vomiting Genitourinary Genitourinary ED: Reports other Details: Decreased urine output ; Denies dysuria, hematuria or urinary frequency Musculoskeletal Musculoskeletal: Reports arthralgias and myalgias Integumentary Denies rash Neurologic Neurologic: Reports headache(s) and weakness; Denies paresthesias Endocrine Endocrinology: Denies cold intolerance or heat intolerance Hematologic/Lymphatic Hematologic/Lymphatic: Reports systems reviewed and no addt'l complaints, exceptas documented EXAM Physical Exam Const Vital Signs: 01/01/24 11:51 01/01/24 12:07 01/01/24 12:56 Temperature 97.5 F L Temperature Source Temporal Pulse Rate 59 L 77 Respiratory Rate 14 16 Respiratory Effort Normal Respiratory Pattern Normal Normal Blood Pressure 134/91 H Blood Pressure Mean 105 Pulse Ox 98 Oxygen Delivery Method Room Air 01/01/24 13:19 01/01/24 15:00 Temperature Temperature Source Pulse Rate 66 73 Respiratory Rate 12 18 Respiratory Effort Respiratory Pattern Blood Pressure 175/77 H 143/78 H Blood Pressure Mean 109 99 Pulse Ox 93 96 Oxygen Delivery Method Room Air Room Air Positive well nourished and well developed Constitutional Narrative: Patient appears ill but not toxic. He is in no obvious distress. General Appearance ED: well developed, NAD and pallor; Negative for cyanotic or diaphoretic HEENT Reports dry mucous membranes HEENT Narrative: Atraumatic normocephalic. Ears normal. Nares patent with slight discharge. Posterior pharynx out erythema exudate. Mucosa is dry. Mouth ED: Yes dry mucous membranes Mouth: dry mucous membranes Eyes PERRL and EOMs intact bilaterally General Eye ED: Negative for pale conjunctiva or scleral icterus Neck no lymphadenopathy, supple and no JVD Neck Narrative: Trachea is midline. There is no inspiratory or expiratory stridor Chest Wall inspection of chest normal and palpation of chest normal Resp normal respiratory effort and No clear to auscultation bilaterally Auscultation: rales bilateral base, wheezes expiratory wheezes and throughout and diminished lung sounds diffuse Cardio regular rate, regular rhythm, S1 normal heart sound, S2 normal heart sound and no murmurs GI normal to inspection, nondistended, normoactive bowel sounds, non-tender, non-distended and no masses; Negative for hepatosplenomegaly Auscultation: normoactive bowel sounds Palpation: soft Back/Spine no CVA tenderness Extremity normal to inspection General Extremety ED: Negative for edema or tenderness General Extremity: Negative for edema Neuro oriented x3, CN's II-XII intact bilaterally and no sensory deficits noted Sensorium / Orientation: alert Psych mental status grossly normal Skin no rashes or lesions noted, no wounds and No skin turgor normal General Skin Exam: pallor; Negative for jaundice MDM MDM MDM Narrative Medical decision making narrative: Clinically patient appears dehydrated. Will obtain BMP to assess renal functionand rule out hyponatremia which she has had in the past. He was treated with albuterol and Atrovent since he has history of COPD. He is not on a diuretic. Patient's sodium is low at 115. This is significantly lower than 2 months ago. Urine and serum osmolarity was obtained. This could be reason why he is not feeling well since clinically he appears dehydrated 1 L of normal saline was ordered initially. History & Record Review Additional record(s) reviewed:: Prior inpatient record (Workup for hyponatremia did not yield a cause of his hyponatremia), Prior ED visit and Prior labs Lab Data Attestation: I reviewed the patient's lab results. Lab results narrative: Sodium is 115. Glucose slightly elevated 121 with normal CO2 anion gap. Creatinine is 0.68 with a estimated GFR 125. Urine osmolarity and serum osmolarity are normal and low respectively. This is not indicative of SIADH. Will contact hospitalist for admission for symptomatic hyponatremia and influenza. Labs: Laboratory Results - last 24 hr 01/01/24 01/01/24 01/01/24 12:28 13:31 13:50 Sodium 115 L* Potassium 4.3 Chloride 83 L Carbon Dioxide 26.0 Anion Gap 6 BUN 8 Creatinine 0.68 L Estim Creat Clear Calc 101.99 Est GFR (MDRD) Af Amer 151 Est GFR (MDRD) Non-Af 125 BUN/Creatinine Ratio 11.8 Glucose 121 H Serum Osmolality 241 L Calcium 8.3 L Urine Osmolality 351 Discharge Plan Triage Chief Complaint: Weakness ED Provider: Dereck Delvalle Dx/Rx/DC Orders Clinical Impression: Acute hyponatremia, Atherosclerotic heart disease of [place] coronary artery without angina pectoris, Influenza, Generalized weakness, Hyperlipidemia, COPD (chronic obstructive pulmonary disease), Essential hypertension, Acute bronchospasm Prescriptions: No Action coenzyme Q10 [Co Q-10] 100 mg capsule 100 mg PO QDAY aspirin [Adult Aspirin Regimen] 81 mg tablet,delayed release (DR/EC) 81 mg PO QDAY omega-3 fatty acids [Fish Oil Concentrate] 1,000 mg capsule 1,000 mg PO QDAY multivitamin tablet 1 tab PO QDAY lisinopril 10 mg tablet See Rx Instructions .ROUTE .COMPLEX Qty: 90 4RF Dose Instruction: TAKE 1 TABLET DAILY Rx Instructions: TAKE 1 TABLET DAILY oseltamivir [Tamiflu] 75 mg capsule 75 mg PO Q12H 5 Days Qty: 10 0RF atorvastatin 10 mg tablet See Rx Instructions .ROUTE .COMPLEX Qty: 45 4RF Dose Instruction: TAKE ONE-HALF (1/2) TABLET AT BEDTIME Rx Instructions: TAKE ONE-HALF (1/2) TABLET AT BEDTIME atenolol 25 mg tablet 25 mg PO QDAY Qty: 90 3RF Primary Care Provider: Rick Gaffney Referrals: Rick Gaffney DO [Primary Care Provider] - What to do if you have Problems For any increased pain, shortness of breath, bleeding, nausea or vomiting, chestpain, or any unexpected problems, contact your Primary Care Provider. Call [facility] ([phone]) or report to the closest Emergency Room. Call 911 if necessary. 01/01/24 1649 <Electronically signed by Dereck Delvalle MD> Cosigner Signature (if applicable): CC: Dr. Rick Gaffney DO ~ Signed [facility] Work Phone: 1(427) 157-343203-06-2024 History and physical note Author Josee Guan [facility] January 01, 2024 4:49pm Note Date/Time January 01, 2024 4:35 pm [facility] Medical Records Department [address] [place] [address] H&P Exam - Hospitalist 01/01/24 1625 MR#: [id number] Acct: [id number] Name: JORGE A RIVERA Rep #:[id number] : 1960 63 From: Josee Guan DO PCP: Dr. Rick Gaffney, DO Status:REG ER Location: ED HPI - General General Date of Admission: 01/01/24 Date of Service: 01/01/24 Chief Complaint: Generalized weakness HPI Narrative JORGE A RIVERA, is a 63 M who presented to the emergency department at [facility] on 01/01/2024. Patient stated he started feeling not well on Saturday of last week and on Saturday he was seen at an urgent care and diagnosed with influenza A. He was started on Tamiflu but has not improved with regards to his symptoms in spite of this. He is complaining of mild headache and some congestion along with shortness of breath and intermittent wheezing. He reported that his appetite has been poor and his p.o. intake has been extremely poor with regards to solute. He states he is trying to drink some Gatorade daily but his oral intake with regards to liquids has been poor as well. He states his mouth has been dry and he has had some orthostatic lightheadedness. He had some diarrhea initially but this has resolved. He has a known history ofhyponatremia for which she follows with Dr. Judy Guan as an outpatient. Hislast sodium was done in September and at that time was 129 which is about his baseline. (Last calendar year sodium has been running between 128 and 130). Since he has been fairly stable she has been checking them every 6 months. He has been diagnosed with SIADH previously which has been managed with electrolytedrinks and fluid restriction. Per documentation there was some wheezing on examon presentation however this was resolved at the time of my evaluation. Vital signs on presentation show a temperature of 97.5, heart rate has been between 59 and 77, blood pressure was 134/91, respiratory rate 14 oxygen saturations were 98% on room air. A CBC was not ordered but I have since ordered one and it is pending. His chemistry panel shows a sodium of 115, chloride is 83, creatinine is 0.68 and serum osmolality was 241. Urine osmolality was 351 but no urine sodium was obtained. Patient was given a DuoNeb and 1 L of IV fluids in the emergency department. [facility] Medical History Atherosclerotic heart disease of [place] coronary artery without angina pectoris Carotid bruit COPD (chronic obstructive pulmonary disease) Essential hypertension History of SIADH Hyperlipidemia Hypertension Home Medications aspirin 81 mg tablet,delayed release (Adult Aspirin Regimen) 81 mg PO QDAY heart11/29/17 [History Last Taken 10/31/19] coenzyme Q10 100 mg capsule (Co Q-10) 100 mg PO QDAY vitamin 11/29/17 [History Last Taken 11/01/19] multivitamin 1 tab PO QDAY vitamin 11/29/17 [History Last Taken 11/01/19] omega-3 fatty acids 1,000 mg capsule (Fish Oil Concentrate) 1,[address] [facility] 11/29/17 [History Last Taken 11/01/19] atorvastatin 10 mg tablet See Rx Instructions .Route .COMPLEX #45 tabs 01/07/23 [Rx Last Taken Unknown] lisinopril 10 mg tablet See Rx Instructions .Route .COMPLEX #90 tabs 07/11/23 [Rx Last Taken Unknown] oseltamivir 75 mg capsule (Tamiflu) 75 mg PO Q12H 5 days #10 caps 12/29/23 [Rx Last Taken Unknown] atenolol 25 mg tablet 25 mg PO QDAY #90 tabs 12/31/23 [Rx Last Taken Unknown] Allergy/AdvReac Type Severity Reaction Status Date / Time ibuprofen [From Advil] AdvReac Intermediate SOB Verified 01/01/24 11:53 Family History Father CAD (coronary artery disease) S/P CABG (coronary artery bypass graft) Mother CAD (coronary artery disease) Hypertension Kidney disease Brother CAD (coronary artery disease) S/P CABG (coronary artery bypass graft) Sister S/P CABG (coronary artery bypass graft) CAD (coronary artery disease) Diabetes Surgical History History of coronary artery bypass surgery (~01/11/10) History of hand surgery History of left heart catheterization History of tonsillectomy Social History Smoking Status: Former smoker quit date: 10/28/09 pack-years: 30 alcohol intake: never substance use type: does not use caffeine: Yes Type: coffee Number of servings: 2 ROS Constitutional Constitutional: Reports anorexia, chills, fatigue, malaise and weakness; Denies change in weight, fever(s), night sweats or other Eyes Eyes: Denies blurry vision, change in eye color, change in vision, discharge from eye(s), double vision, erythema, eye pain, loss of vision or other ENT HEENT: Reports headache(s), nasal congestion, nasal discharge and post nasal drip; Denies abnormal hearing, dysphagia, ear pain, epistaxis, hearing loss, sinus pressure, sore throat or other Cardiovascular Cardiovascular: Denies chest pain, claudication, dyspnea on exertion, edema, lightheadedness, orthopnea, palpitations, paroxysmal nocturnal dyspnea, rapid heart rate, syncope or other Respiratory/Chest Respiratory/Chest: Reports cough, shortness of breath with exertion and wheezing; Denies dyspnea, excessive phlegm production, hemoptysis, productive cough, shortness of breath at rest or other Gastrointestinal Gastrointestinal: Reports diarrhea; Denies abdominal pain, coffee ground emesis,constipation, dyspepsia, hematemesis, hematochezia, loose stools, melena, nausea, vomiting or other Genitourinary Genitourinary: Denies burning urination, difficulty urinating, dysuria, hematuria, nocturia, urinary frequency, urinary hesitancy, urinary incontinence,urinary urgency or other Musculoskeletal Musculoskeletal: Denies arthralgias, back pain, joint pain, joint stiffness, joint swelling, myalgias, neck pain or other Neurologic Neurologic: Denies abnormal gait, abnormal speech, confusion, disequilibrium, dizziness, focal weakness, headache(s), numbness, paresthesias, seizure-like activity, seizures, syncope, tingling, tremor(s) or other Psychiatric Psychiatric: Denies anxiety, depression, homicidal ideation, suicidal ideation or other Endocrine Endocrinology: Denies change in body appearance, cold intolerance, excessive sweating, heat intolerance, polydipsia, polyuria or other Hematologic/Lymphatic Hematologic/Lymphatic: Denies anemia, easy bleeding, easy bruising, lymphadenopathy or other Allergic/Immunologic Allergic/Immunologic: Denies rhinitis, hives, eczemia, asthma or other Vital Signs Vital Signs Vital Signs: 01/01/24 11:51 01/01/24 12:07 01/01/24 12:56 Temperature 97.5 F L Temperature Source Temporal Pulse Rate 59 L 77 Respiratory Rate 14 16 Respiratory Effort Normal Respiratory Pattern Normal Normal Blood Pressure 134/91 H Blood Pressure Mean 105 Pulse Ox 98 Oxygen Delivery Method Room Air 01/01/24 13:19 01/01/24 15:00 Temperature Temperature Source Pulse Rate 66 73 Respiratory Rate 12 18 Respiratory Effort Respiratory Pattern Blood Pressure 175/77 H 143/78 H Blood Pressure Mean 109 99 Pulse Ox 93 96 Oxygen Delivery Method Room Air Room Air Weight Weight: 65.7 kg Body Mass Index (BMI) 20.7 Physical Exam Const alert, oriented x3, no apparent distress, average body habitus, healthy appearing and well nourished Constitutional Narrative: Upper middle-aged, white male, sitting up in bed, appears weak but not overtly ill or toxic, at bedside, very pleasant General Appearance: cooperative HEENT normocephalic, head/scalp atraumatic, hearing grossly normal bilaterally and moist oral mucous membranes HEENT Narrative: Dentition is good for age, Mallampati is 1-2, no thrush Eyes PERRL, EOMs intact bilaterally and conjunctivae normal Eyes Narrative: No scleral icterus Neck no lymphadenopathy and supple Neck Narrative: Trachea midline, no thyroid enlargement Resp normal respiratory effort, no retractions, no use of accessory muscles and clearto auscultation bilaterally Auscultation: Negative for rales, rhonchi or wheezes Cardio regular rate, regular rhythm, S1 normal heart sound, S2 normal heart sound, no murmurs, no rub, no gallops and no clicks GI normal to inspection, nondistended, normoactive bowel sounds, soft to palpation and non-tender Extremity no clubbing, cyanosis or edema Extremity Narrative: Pedal pulses are 2+ Neuro oriented x3, CN's II-XII intact bilaterally, moves all extremities and no focal motor deficits Speech: speech normal Psych affect normal Psych Narrative: Interacts appropriately, eye contact is good Results Lab / Micro Data 01/01/24 12:28 Labs: Laboratory Results - last 24 hr 01/01/24 12:28: Sodium 115 L*, Potassium 4.3, Chloride 83 L, Carbon Dioxide 26.0, Anion Gap 6, BUN 8, Creatinine 0.68 L, Estim Creat Clear Calc 101.99, Est GFR (MDRD) Af Amer 151, Est GFR (MDRD) Non-Af 125, BUN/Creatinine Ratio 11.8, Glucose 121 H, Calcium 8.3 L 01/01/24 13:31: Serum Osmolality 241 L 01/01/24 13:50: Urine Osmolality 351 Assessment & Plan Assessment/Plan (1) Hyponatremia: (2) History of SIADH: (3) Influenza: (4) Generalized weakness: PLAN: Plan Acute on chronic hyponatremia -Patient has been diagnosed with SIADH and typically follows fluid restriction -P.o. intake has been poor with regards to solute and I suspect that he has had decreased solute and ongoing fluid intake resulting in worsening of his hyponatremia -Will fluid restrict -Given his poor oral intake due to decreased appetite from influenza A will start salt tablets 1 g 3 times daily -Check BMP every 6 hours x 3 -If sodium does not improve may need to consult Dr. Guan for assistance with his hyponatremia -He follows with her as an outpatient History of SIADH -As above -Managed with fluid restriction at baseline -Baseline sodium runs between 128 and 130 over the last year Influenza A -Diagnosed on 12/29/2023 -Has been on Tamiflu since that point in time -Has 5 tablets left we will continue -Supportive care with as needed antitussive and nebulizers Generalized weakness -Likely related to influenza A plus hyponatremia -PT consultation -Should improve with improvement in sodium and as he recovers from his influenzainfection -Will check CBC to rule out any anemia that could be contributing CAD/HTN/HPL -01/11/2010 KNOTT to LAD, EDYTA insitu to the RCA and SVG to DX, [facility] to [facility] per Dr. Rubio -Continue home aspirin -Continue home atenolol -Continue home atorvastatin -Continue home lisinopril COPD -Patient is not oxygen dependent and takes no inhalers for this at baseline -Recommend outpatient follow-up if symptoms change History of tobacco abuse -Recommend ongoing cessation -As needed albuterol as patient did have some wheezing on presentation likely related to his influenza A infection -Quit smoking in 2009 but has [id number] history DVT prophylaxis -Lovenox subcu daily CODE STATUS -Full code is verified on admission Charges/Coding Visit Charges Inpatient E&M: 45965 Init Hosp L2 01/01/24 1647 <Electronically signed by Josee Guan DO> Cosigner Signature (if applicable): CC: Dr. Josee Guan DO; Dr. Rick Gaffney DO~ Signed [facility] Work Phone: [phone]) 170-557803-06-2024 Discharge summary Author Dereck Delvalle [facility] January 01, 2024 4:49pm Note Date/Time January 01, 2024 1:23 pm [facility] Medical Records Department [address] [place] [address] Emergency Department Summary 01/01/24 MR#: [id number] Acct: [id number] Name: JORGE A RIVERA Rep #:[id number] : 1960 63 From: Dereck Delvalle MD PCP: Dr. Rick Gaffney DO Status:REG ER Location: ED HPI History of Present Illness Chief Complaint: Weakness Detail of Chief Complaint: Weakness, orthostatic symptoms, no improvement after Tamiflu Informant: patient and spouse/S.O. Onset/Context/Timing Onset: Days Context: Gradual Onset Timing: Continuous Quality: Diagnosed with influenza December 28. No improvement and now generalized weakn Current Severity: Mild Maximum Severity: Moderate Worsened by: Upright Relieved by: Supine Associated Symptoms Associated Symptoms: Decreased appetite, decreased urine and orthostatic symptoms Narrative Narrative: Patient reports onset of symptoms this past . He was seen on Saturday, December 28 at the urgent care and diagnosed with influenza. He presents because hehas had no improvement in spite of taking Tamiflu. He does report mild headache. Does report congestion, shortness of breath and intermittent wheezing. Patient states he has no appetite. He said poor p.o. intake both solids and liquids. Had decreased urine output. He does endorse dry mouth, thirst and orthostatic lightheadedness. He denies black or maroon-colored stool. He did have diarrhea initially. He had no diarrhea recently. He did endorse myalgias arthralgias initially. Prior similar symptoms: No Recent Illness/Hospitalization: Yes PFSH PFSH Medical History Atherosclerotic heart disease of [place] coronary artery without angina pectoris Carotid bruit COPD (chronic obstructive pulmonary disease) Essential hypertension History of SIADH Hyperlipidemia Hypertension Home Medications aspirin 81 mg tablet,delayed release (Adult Aspirin Regimen) 81 mg PO QDAY heart11/29/17 [History Last Taken 10/31/19] coenzyme Q10 100 mg capsule (Co Q-10) 100 mg PO QDAY vitamin 11/29/17 [History Last Taken 11/01/19] multivitamin 1 tab PO QDAY vitamin 11/29/17 [History Last Taken 11/01/19] omega-3 fatty acids 1,000 mg capsule (Fish Oil Concentrate) 1,[address] [facility] 11/29/17 [History Last Taken 11/01/19] atorvastatin 10 mg tablet See Rx Instructions .Route .COMPLEX #45 tabs 01/07/23 [Rx Last Taken Unknown] lisinopril 10 mg tablet See Rx Instructions .Route .COMPLEX #90 tabs 07/11/23 [Rx Last Taken Unknown] oseltamivir 75 mg capsule (Tamiflu) 75 mg PO Q12H 5 days #10 caps 12/29/23 [Rx Last Taken Unknown] atenolol 25 mg tablet 25 mg PO QDAY #90 tabs 12/31/23 [Rx Last Taken Unknown] Allergy/AdvReac Type Severity Reaction Status Date / Time ibuprofen [From Advil] AdvReac Intermediate SOB Verified 01/01/24 11:53 Family History Father CAD (coronary artery disease) S/P CABG (coronary artery bypass graft) Mother CAD (coronary artery disease) Hypertension Kidney disease Brother CAD (coronary artery disease) S/P CABG (coronary artery bypass graft) Sister S/P CABG (coronary artery bypass graft) CAD (coronary artery disease) Diabetes Surgical History History of coronary artery bypass surgery (~01/11/10) History of hand surgery History of left heart catheterization History of tonsillectomy Social History Smoking Status: Former smoker quit date: 10/28/09 pack-years: 30 alcohol intake: never substance use type: does not use caffeine: Yes Type: coffee Number of servings: 2 ROS ROS ED Constitutional Constitutional ED: Reports chills, fever(s) and subjective; Denies sweats Eyes Eyes: Denies blurry vision, change in vision or diplopia ENT ENT ED: Reports rhinorrhea and sore throat; Denies ear pain Cardiovascular Cardiovascular: Denies chest pain, orthopnea, palpitations or paroxysmal nocturnal dyspnea Respiratory/Chest Respiratory/Chest: Reports cough; Denies dyspnea on exertion, orthopnea, paroxysmal nocturnal dyspnea or sputum Gastrointestinal Gastrointestinal: Reports diarrhea; Denies abdominal pain, nausea or vomiting Genitourinary Genitourinary ED: Reports other Details: Decreased urine output ; Denies dysuria, hematuria or urinary frequency Musculoskeletal Musculoskeletal: Reports arthralgias and myalgias Integumentary Denies rash Neurologic Neurologic: Reports headache(s) and weakness; Denies paresthesias Endocrine Endocrinology: Denies cold intolerance or heat intolerance Hematologic/Lymphatic Hematologic/Lymphatic: Reports systems reviewed and no addt'l complaints, exceptas documented EXAM Physical Exam Const Vital Signs: 01/01/24 11:51 01/01/24 12:07 01/01/24 12:56 Temperature 97.5 F L Temperature Source Temporal Pulse Rate 59 L 77 Respiratory Rate 14 16 Respiratory Effort Normal Respiratory Pattern Normal Normal Blood Pressure 134/91 H Blood Pressure Mean 105 Pulse Ox 98 Oxygen Delivery Method Room Air 01/01/24 13:19 01/01/24 15:00 Temperature Temperature Source Pulse Rate 66 73 Respiratory Rate 12 18 Respiratory Effort Respiratory Pattern Blood Pressure 175/77 H 143/78 H Blood Pressure Mean 109 99 Pulse Ox 93 96 Oxygen Delivery Method Room Air Room Air Positive well nourished and well developed Constitutional Narrative: Patient appears ill but not toxic. He is in no obvious distress. General Appearance ED: well developed, NAD and pallor; Negative for cyanotic or diaphoretic HEENT Reports dry mucous membranes HEENT Narrative: Atraumatic normocephalic. Ears normal. Nares patent with slight discharge. Posterior pharynx out erythema exudate. Mucosa is dry. Mouth ED: Yes dry mucous membranes Mouth: dry mucous membranes Eyes PERRL and EOMs intact bilaterally General Eye ED: Negative for pale conjunctiva or scleral icterus Neck no lymphadenopathy, supple and no JVD Neck Narrative: Trachea is midline. There is no inspiratory or expiratory stridor Chest Wall inspection of chest normal and palpation of chest normal Resp normal respiratory effort and No clear to auscultation bilaterally Auscultation: rales bilateral base, wheezes expiratory wheezes and throughout and diminished lung sounds diffuse Cardio regular rate, regular rhythm, S1 normal heart sound, S2 normal heart sound and no murmurs GI normal to inspection, nondistended, normoactive bowel sounds, non-tender, non-distended and no masses; Negative for hepatosplenomegaly Auscultation: normoactive bowel sounds Palpation: soft Back/Spine no CVA tenderness Extremity normal to inspection General Extremety ED: Negative for edema or tenderness General Extremity: Negative for edema Neuro oriented x3, CN's II-XII intact bilaterally and no sensory deficits noted Sensorium / Orientation: alert Psych mental status grossly normal Skin no rashes or lesions noted, no wounds and No skin turgor normal General Skin Exam: pallor; Negative for jaundice MDM MDM MDM Narrative Medical decision making narrative: Clinically patient appears dehydrated. Will obtain BMP to assess renal functionand rule out hyponatremia which she has had in the past. He was treated with albuterol and Atrovent since he has history of COPD. He is not on a diuretic. Patient's sodium is low at 115. This is significantly lower than 2 months ago. Urine and serum osmolarity was obtained. This could be reason why he is not feeling well since clinically he appears dehydrated 1 L of normal saline was ordered initially. History & Record Review Additional record(s) reviewed:: Prior inpatient record (Workup for hyponatremia did not yield a cause of his hyponatremia), Prior ED visit and Prior labs Lab Data Attestation: I reviewed the patient's lab results. Lab results narrative: Sodium is 115. Glucose slightly elevated 121 with normal CO2 anion gap. Creatinine is 0.68 with a estimated GFR 125. Urine osmolarity and serum osmolarity are normal and low respectively. This is not indicative of SIADH. Will contact hospitalist for admission for symptomatic hyponatremia and influenza. Labs: Laboratory Results - last 24 hr 01/01/24 01/01/24 01/01/24 12:28 13:31 13:50 Sodium 115 L* Potassium 4.3 Chloride 83 L Carbon Dioxide 26.0 Anion Gap 6 BUN 8 Creatinine 0.68 L Estim Creat Clear Calc 101.99 Est GFR (MDRD) Af Amer 151 Est GFR (MDRD) Non-Af 125 BUN/Creatinine Ratio 11.8 Glucose 121 H Serum Osmolality 241 L Calcium 8.3 L Urine Osmolality 351 Discharge Plan Triage Chief Complaint: Weakness ED Provider: Dereck Delvalle Dx/Rx/DC Orders Clinical Impression: Acute hyponatremia, Atherosclerotic heart disease of [place] coronary artery without angina pectoris, Influenza, Generalized weakness, Hyperlipidemia, COPD (chronic obstructive pulmonary disease), Essential hypertension, Acute bronchospasm Prescriptions: No Action coenzyme Q10 [Co Q-10] 100 mg capsule 100 mg PO QDAY aspirin [Adult Aspirin Regimen] 81 mg tablet,delayed release (DR/EC) 81 mg PO QDAY omega-3 fatty acids [Fish Oil Concentrate] 1,000 mg capsule 1,000 mg PO QDAY multivitamin tablet 1 tab PO QDAY lisinopril 10 mg tablet See Rx Instructions .ROUTE .COMPLEX Qty: 90 4RF Dose Instruction: TAKE 1 TABLET DAILY Rx Instructions: TAKE 1 TABLET DAILY oseltamivir [Tamiflu] 75 mg capsule 75 mg PO Q12H 5 Days Qty: 10 0RF atorvastatin 10 mg tablet See Rx Instructions .ROUTE .COMPLEX Qty: 45 4RF Dose Instruction: TAKE ONE-HALF (1/2) TABLET AT BEDTIME Rx Instructions: TAKE ONE-HALF (1/2) TABLET AT BEDTIME atenolol 25 mg tablet 25 mg PO QDAY Qty: 90 3RF Primary Care Provider: Rick Gaffney Referrals: Rick Gaffney DO [Primary Care Provider] - What to do if you have Problems For any increased pain, shortness of breath, bleeding, nausea or vomiting, chestpain, or any unexpected problems, contact your Primary Care Provider. Call [facility] ([phone]) or report to the closest Emergency Room. Call 911 if necessary. 01/01/24 1649 <Electronically signed by Dereck Delvalle MD> Cosigner Signature (if applicable): CC: Dr. Rick Gaffney DO ~ Signed [facility] Work Phone: 1(262) 932-366803-01-2010 Evaluation note* Diagnosis Onset Date Resolution Status History of coronary artery bypass surgery December, acute Atherosclerotic heart diseas e of [place] coronary artery without angina pectoris chronic Essential hypertension chron ic Hyperlipidemia [facility] Work Phone: 1(260) 833-147703-01-2010 Evaluation note* Diagnosis Onset Date Resolution Status History of coronary artery bypass surgery December, acute Essential hypertension chron ic Hyperlipidemia [facility] Work Phone: [phone]) 945-387303-01-2010 Evaluation note* Diagnosis Onset Date Resolution Status Admit Date History of coronary artery b ypass surgery December, acute March 02, 2025 8: 08am PAD (peripheral artery disease) acut e March 02, 2025 8:08am Atherosclerotic heart diseas e of [place] coronary artery without angina pectoris chronic March 02, 2025 8: 08am Hyperlipidemia chronic March 02, 2 025 8:08am Hypertension chronic March 02 8:08am [facility] Work Phone: Consult note Author Erasto Perdue [facility] January 03, 2024 2:28pm Note Date/Time January 03, 2024 2:28 pm [facility] Medical Records Department [address] [place] [address] Counseling Note - Pharmacy 01/03/241426 MR#: [id number] Acct: [id number] Name: JORGE A RIVERA Rep #:[id number] : 1960 63 From: Erasto Perdue PCP: Dr. Rick Gaffney, DO Status:ADM IN Y Location: [place] [address] [place]acy [place] Med Reconciliation Pharmacy Service has performed discharge medication reconciliation for this patient. The patient's discharge medication list was reviewed for discrepancies and discrepancies were resolved. Medications at Discharge Home Medications aspirin 81 mg tablet,delayed release (Adult Aspirin Regimen) 81 mg PO QDAY heart11/29/17 coenzyme Q10 100 mg capsule (Co Q-10) 100 mg PO QDAY vitamin 11/29/17 multivitamin 1 tab PO QDAY vitamin 11/29/17 omega-3 fatty acids 1,000 mg capsule (Fish Oil Concentrate) 1,[address] [facility] 11/29/17 atorvastatin 10 mg tablet See Rx Instructions .Route .COMPLEX #45 tabs 01/07/23 lisinopril 10 mg tablet See Rx Instructions .Route .COMPLEX #90 tabs 07/11/23 oseltamivir 75 mg capsule (Tamiflu) 75 mg PO Q12H 5 days #10 caps 12/29/23 atenolol 25 mg tablet 25 mg PO QDAY #90 tabs 12/31/23 01/03/24 1114 <Electronically signed by Erasto Csaey r> Date _ Erasto Love Signature (if applicable): Date CC: ~ Signed [facility] Work Phone: Discharge summary Author Bull Gusman [facility] January 03, 2024 1:46pm Note Date/Time January 03, 2024 1:43 pm [facility] Medical Records Department [address] [place] [address] Instructions for Home/Discharge Instructions 01/03/24 1307 MR#: [id number] Acct: [id number] Name: JORGE A RIVERA Rep #:[id number] : 1960 63 From: Bull Grayson PCP: Dr. Rick Gaffney, DO Status:ADM IN Discharge Instructions Diet Discharge Diet: No restrictions and 8 Cup Fluid Restriction (After 2 days) Activity Discharge Activity: Return to Normal Activity Weight Bearing Status: Weight bearing as tolerated Dressing / Incision Call your doctor if you observe: Fever of 101 or Higher, Coldness, Increased Pain, Numbness or Tingling, Change in Color, Inability to urinate, Inability to have a bowel movement, Shortness of breath, Dizziness, Fainting spells, Swellingin the ankles, Chest pain, Prolonged hiccupping, Increased palpitations (irregular heartbeat) and Calf discomfort Follow Up Care When: IN 2 WEEKS Test Results: Test results from this visit will be discussed in further detail at your follow- up appointment, if applicable. Discharge Plan Admission Admit Date/Time: 01/01/24 16:33 Primary Reason for Your Visit: severe hyponatremia, SIADH mediated Attending Provider: Bull Gusman Primary Care Provider: Rick Gaffney Consulting Providers: Josee Guan; Judy Guan Discharge Orders/Prescriptions Prescriptions: Continued coenzyme Q10 [Co Q-10] 100 mg capsule 100 mg PO QDAY aspirin [Adult Aspirin Regimen] 81 mg tablet,delayed release (DR/EC) 81 mg PO QDAY omega-3 fatty acids [Fish Oil Concentrate] 1,000 mg capsule 1,000 mg PO QDAY multivitamin tablet 1 tab PO QDAY lisinopril 10 mg tablet See Rx Instructions .ROUTE .COMPLEX Qty: 90 4RF Dose Instruction: TAKE 1 TABLET DAILY Rx Instructions: TAKE 1 TABLET DAILY oseltamivir [Tamiflu] 75 mg capsule 75 mg PO Q12H 5 Days Qty: 10 0RF atorvastatin 10 mg tablet See Rx Instructions .ROUTE .COMPLEX Qty: 45 4RF Dose Instruction: TAKE ONE-HALF (1/2) TABLET AT BEDTIME Rx Instructions: TAKE ONE-HALF (1/2) TABLET AT BEDTIME atenolol 25 mg tablet 25 mg PO QDAY Qty: 90 3RF Referrals / Follow Up: Judy Guan DO [Med Staff - Consulting] - Within 1 Month (For isovolemic hyponatremia, SIADH) Rick Gaffney DO [Primary Care Provider] - Disposition Disposition (needs filled in before D/C Order can be placed): Home, Self Care 01/03/24 1346<Electronically signed by Bull Gusman MD>Bull Gusman MD CC: Dr. Judy Guan DO; Dr. Josee Guan DO; Dr. Rick Gaffney DO ~ Signed [facility] Work Phone: Discharge summary Author Bull Gusman [facility] January 03, 2024 1:50pm Note Date/Time January 03, 2024 1:47 pm [facility] Medical Records Department [address] [place] [id number] Discharge Summary 01/03/24 1346 MR#: [id number] Acct: [id number] Name: JORGE A RIVERA Rep #:[id number] : 1960 63 From: Bull Grayson PCP: Dr. Rick Gaffney DO Status:ADM IN Location: [facility] [id number] Providers Date of Admission: 01/01/24 Primary Care Physician: Dr. Rick Gaffney DO Consultations 01/02/24 08:01 Consult: Nephrology Routine Consulting Provider: Judy Guan Reason for Consult: low sodium EMERGENT Consult: No MD Notified: Yes Date Notified: 01/02/24 Time Notified: 08:01 Method of Notification: Text Reason For Visit: SEVERE HYPONATREMIA/GENERALIZED WEAKNESS Diagnosis Discharge Diagnosis (1) Hyponatremia: Status: Acute Code(s): E87.1 - Hypo-osmolality and hyponatremia (2) Influenza: Status: Acute Code(s): J11.1 - Influenza due to unidentified influenza virus with other respiratory manifestations (3) History of SIADH: Status: Chronic Code(s): Z86.39 - Personal history of other endocrine, nutritional and metabolic disease (4) Essential hypertension: Status: Chronic Code(s): I10 - Essential (primary) hypertension (5) Atherosclerotic heart disease of [place] coronary artery without angina pectoris: Status: Chronic Code(s): I25.10 - Atherosclerotic heart disease of [place] coronary artery without angina pectoris Qualifiers: [place] vs. transplanted heart: [place] heart Qualified Code(s): I25.10 -Atherosclerotic heart disease of [place] coronary artery without angina pectoris Plan Patient came to ED with generalized weakness, decreased appetite, mild headache,decreased urine output, dizziness since diagnosed with influenza on December 28. Noimprovement in symptoms despite taking Tamiflu. Acute on chronic hyponatremia: -Patient has been diagnosed with SIADH and typically follows fluid restriction and follows Dr. Judy Guan. Currently patient looks dehydrated with poor solute intake and decreased appetite therefore IV fluid normal saline -P.o. intake has been poor with regards to solute and I suspect that he has had decreased solute and ongoing fluid intake resulting in worsening of his hyponatremia. IV fluid ordered. Repeat sodium is ordered every 4 hourly. Patient on sodium tablet. 01/02: Patient was seen by fiberglass tube molder. Patient had 15 mg 1 dose. His sodium increased from 1 22-1 26. Prior to that it was 116. Sodium tablet has been discontinued. IV fluid normal saline discontinued in the morning. Patient doesnot have neurological symptoms including headache, change in mental status confusion diplopia. Discussed with the fiberglass tube molder. Patient wants to go home and okay for discharge. History of SIADH -As above -Managed with fluid restriction at baseline -Baseline sodium runs between 128 and 130 over the last year Influenza A -Diagnosed on 12/29/2023 -Has been on Tamiflu since that point in time -Has 5 tablets left we will continue -Supportive care with as needed antitussive and nebulizers 01/02: Advised to complete the treatment of Tamiflu. Generalized weakness -Likely related to influenza A plus hyponatremia -PT consultation -Should improve with improvement in sodium and as he recovers from his influenzainfection -Will check CBC to rule out any anemia that could be contributing CAD/HTN/HPL -01/11/2010 KNOTT to LAD, EDYTA insitu to the RCA and SVG to DX, SVG to [facility] per Dr. Rubio -Continue home aspirin -Continue home atenolol -Continue home atorvastatin -Continue home lisinopril COPD -Patient is not oxygen dependent and takes no inhalers for this at baseline -Recommend outpatient follow-up if symptoms change History of tobacco abuse -Recommend ongoing cessation -As needed albuterol as patient did have some wheezing on presentation likely related to his influenza A infection -Quit smoking in 2009 but has [id number] history DVT prophylaxis -Lovenox subcu daily CODE STATUS -Full code is verified on admission Discharge medication reconciliation done. Discharge follow-up instructions completed. Discharge process discussed with the patient and all questions wereanswered to patient's satisfaction. Follow with PCP in 1 to 2 weeks Total time spent, exact 35 minutes on discharge meds reconciliation, examination, coordination of care with nurses and ancillary staff, review of imaging and blood test and discussion with the patient on follow-up instructions. Medications at Discharge Home Medications aspirin 81 mg tablet,delayed release (Adult Aspirin Regimen) 81 mg PO QDAY heart11/29/17 coenzyme Q10 100 mg capsule (Co Q-10) 100 mg PO QDAY vitamin 11/29/17 multivitamin 1 tab PO QDAY vitamin 11/29/17 omega-3 fatty acids 1,000 mg capsule (Fish Oil Concentrate) 1,000 mg PO QDAY heart [facility] 11/29/17 atorvastatin 10 mg tablet See Rx Instructions .Route .COMPLEX #45 tabs 01/07/23 lisinopril 10 mg tablet See Rx Instructions .Route .COMPLEX #90 tabs 07/11/23 oseltamivir 75 mg capsule (Tamiflu) 75 mg PO Q12H 5 days #10 caps 12/29/23 atenolol 25 mg tablet 25 mg PO QDAY #90 tabs 12/31/23 Physical Exam Narrative Seen and examined on the day of discharge. Wants to go home. Physical exam General: Alert, Oriented x3, Cooperative. Well-hydrated HEENT: Atraumatic, PERRLA, EOMI, Normocephalic Oral: No Gingival or Mucosal Lesions/ Ulcerations Neck: Supple, No JVD, Negative Carotid Bruits Chest wall/Lungs: Air entry diminished in bilateral lung bases. No crepitation/rhonchi. No hypoxia or tachypnea. Cardiovascular: Regular rate, Regular Rhythm, Normal S1, Normal S2, No M/G/R Abdomen: Bowel Sounds Present, Soft, Non Tender, Non-Distended : No dysuria. No renal angle tenderness. No suprapubic tenderness. Extremities: No edema, Capillary Refill Less than 3 Seconds Skin: No rashes, No breakdown Musculoskeletal: No Tenderness to Palpation of Joints or Extremities Neurological: Cranial nerves II-XII grossly intact, DTR 2+/4. No acute focal neurological deficit. Psych/Mental Status: Normal Affect, Appropriate. Weight / BMI Weight Weight: 141 lb 1.533 oz Body Mass Index (BMI) 20.2 ABG / Lab / Microbiology Data 01/03/24 05:50 01/03/24 05:50 Laboratory: Laboratory Results - last 24 hr 01/02/24 17:40: Sodium 114 L* 01/02/24 21:30: Sodium 116 L* 01/03/24 01:22: Sodium 122 L 01/03/24 05:50: WBC 5.2, RBC 3.99 L, Hgb 12.6 L, Hct 35.2 L, MCV 88.2, MCH 31.6,MCHC 35.8, RDW Std Deviation 37.7, RDW Coeff of Murphy 11.6, Plt Count 174, MPV 10.0, Immature Gran % (Auto) 0.600, Neut % (Auto) 66.0, Lymph % (Auto) 22.5, [place] % (Auto) 9.9, Eos % (Auto) 0.6, Baso % (Auto) 0.4, Absolute Neuts (auto) 3.5, Absolute Lymphs (auto) 1.18, Nucleated RBC % 0, Sodium 126 L, Potassium 3.7, Chloride 92 L, Carbon Dioxide 24.0, Anion Gap 10, BUN 7, Creatinine 0.54 L,Estim Creat Clear Calc 125.10, Est GFR (MDRD) Af Amer 195, Est GFR (MDRD) Non-Af161, BUN/Creatinine Ratio 12.9, Glucose 95, Calcium 8.2 L D/C Instructions Discharge Diet: No restrictions and 8 Cup Fluid Restriction (After 2 days) Weight Bearing Status: Weight bearing as tolerated Call your doctor if you observe: Fever of 101 or Higher, Coldness, Increased Pain, Numbness or Tingling, Change in Color, Inability to urinate, Inability to have a bowel movement, Shortness of breath, Dizziness, Fainting spells, Swellingin the ankles, Chest pain, Prolonged hiccupping, Increased palpitations (irregular heartbeat) and Calf discomfort When: IN 2 WEEKS Meaningful Use Info Meaningful Use Diagnoses (Choose all that apply): None applicable Discharge Plan Admission Admit Date/Time: 01/01/24 16:33 Primary Reason for Your Visit: severe hyponatremia, SIADH mediated Attending Provider: Bull Gusman Primary Care Provider: Rick Gaffney Consulting Providers: Josee Guan; Judy Guan Discharge Orders/Prescriptions Prescriptions: Continued coenzyme Q10 [Co Q-10] 100 mg capsule 100 mg PO QDAY aspirin [Adult Aspirin Regimen] 81 mg tablet,delayed release (DR/EC) 81 mg PO QDAY omega-3 fatty acids [Fish Oil Concentrate] 1,000 mg capsule 1,000 mg PO QDAY multivitamin tablet 1 tab PO QDAY lisinopril 10 mg tablet See Rx Instructions .ROUTE .COMPLEX Qty: 90 4RF Dose Instruction: TAKE 1 TABLET DAILY Rx Instructions: TAKE 1 TABLET DAILY oseltamivir [Tamiflu] 75 mg capsule 75 mg PO Q12H 5 Days Qty: 10 0RF atorvastatin 10 mg tablet See Rx Instructions .ROUTE .COMPLEX Qty: 45 4RF Dose Instruction: TAKE ONE-HALF (1/2) TABLET AT BEDTIME Rx Instructions: TAKE ONE-HALF (1/2) TABLET AT BEDTIME atenolol 25 mg tablet 25 mg PO QDAY Qty: 90 3RF Referrals / Follow Up: Judy Guan DO [Med Staff - Consulting] - Within 1 Month (For isovolemic hyponatremia, SIADH) Rick Gaffney DO [Primary Care Provider] - Disposition Disposition (needs filled in before D/C Order can be placed): Home, Self Care Charges/Coding Visit Charges Inpatient E&M: 76204 Disch Hosp >30min 01/03/24 1350 <Electronically signed by Bull Gusman MD> Cosigner Signature (if applicable): CC: Dr. Judy Guan DO; Dr. Rick Gaffney DO; Dr. Bull Gusman MD~ Signed [facility] Work Phone: Evaluation noteNo assessment information available [facility] Work Phone: Evaluation note* Diagnosis Onset Date Resolution Status Influenza acute Acute bronchospasm acute Acute hyponatremia acute Generalized weakness acute Hyponatremia acute Influenza acute Atherosclerotic heart diseas e of [place] coronary artery without angina pectoris chronic COPD (chronic obstructive pulmonary disease) chronic Essential hypertension chron ic History of SIADH chronic Hyperlipidemia chronic [facility] Work Phone: Evaluation note* Diagnosis Onset Date Resolution Status Influenza acute Acute bronchospasm acute Generalized weakness acute Hyponatremia acute Influenza acute Atherosclerotic heart diseas e of [place] coronary artery without angina pectoris chronic COPD (chronic obstructive pulmonary disease) chronic Essential hypertension chron ic Hyperlipidemia chronic Acute hyponatremia resolved [facility] Work Phone: Evaluation note* Diagnosis SIADH (syndrome of inappropriate ADH production) (HCC)- Primary Other disorders of neurohypophysis Hyponatremia Hyposmolality and/or hyponatremia Essential hypertension Unspecified essential [facility] [place] [facility] Diagnosis Pleural thickening- Primary Pleurisy without mention of effusion or current tuberculosis SIADH (syndrome of inappropriate ADH production) (HCC) Other disorders of neurohypophysis [facility] [place] [facility]* Diagnosis Pleural effusion Unspecified pleural effusion [facility] [place] [facility]* Diagnosis Pleural plaque- Primary Pleurisy without mention of effusion or current tuberculosis [facility]* Diagnosis Hyponatremia Hyposmolality and/or hyponatremia [facility] [place] [facility]* Diagnosis Pleural plaque- Primary Pleurisy without mention of effusion or current tuberculosis Centrilobular emphysema (HCC) Other emphysema Interstitial pulmonary disease (HCC) Postinflammatory pulmonary fibrosis Ex-smoker Personal history of tobacco use, presenting hazards to health Hyponatremia Hyposmolality and/or hyponatremia [facility]* Diagnosis Pleural plaque Pleurisy without mention of effusion or current tuberculosis Centrilobular emphysema (HCC) Other emphysema [facility] [place] [facility]* Diagnosis Pleural plaque Pleurisy without mention of effusion or current tuberculosis Centrilobular emphysema (HCC) Other emphysema [facility] [place] [facility]* Diagnosis Hyponatremia- Primary Hyposmolality and/or hyponatremia SIADH (syndrome of inappropriate ADH production) (HCC) Other disorders of neurohypophysis Essential hypertension Unspecified essential hypertension Other hyperlipidemia Pleural plaque Pleurisy without mention of effusion or current tuberculosis [facility] [place] [facility]* Diagnosis Hyponatremia Hyposmolality and/or hyponatremia SIADH (syndrome of inappropriate ADH production) (HCC) Other disorders of neurohypophysis [facility] [place] [facility]* Diagnosis SIADH (syndrome of inappropriate ADH production) (HCC)- Primary Other disorders of neurohypophysis [facility] [place] [facility]* Diagnosis Hyponatremia- Primary Hyposmolality and/or hyponatremia SIADH (syndrome of inappropriate ADH production) (HCC) Other disorders of neurohypophysis Essential hypertension Unspecified essential hypertension Other hyperlipidemia Pleural thickening Pleurisy without mention of effusion or current tuberculosis [facility] [place] [facility]* Diagnosis Hyponatremia- Primary Hyposmolality and/or hyponatremia SIADH (syndrome of inappropriate ADH production) (HCC) Other disorders of neurohypophysis Essential hypertension Unspecified essential hypertension [facility] Author Josee Guan [facility] January 01, 2024 4:49pm Note Date/Time January 01, 2024 4:35 pm [facility] Medical Records Department [address] [place] [id number] H&P Exam - Hospitalist 01/01/24 1625 MR#: [id number] Acct: [id number] Name: JORGE A RIVERA Rep #:[id number] : 1960 63 From: Josee Guan DO PCP: Dr. Rick Gaffney DO Status:REG ER Location: ED HPI - General General Date of Admission: 01/01/24 Date of Service: 01/01/24 Chief Complaint: Generalized weakness HPI Narrative JORGE A WEAVERAN, is a 63 M who presented to the emergency department at [facility] on 01/01/2024. Patient stated he started feeling not well on Saturday of last week and on Saturday he was seen at an urgent care and diagnosed with influenza A. He was started on Tamiflu but has not improved with regards to his symptoms in spite of this. He is complaining of mild headache and some congestion along with shortness of breath and intermittent wheezing. He reported that his appetite has been poor and his p.o. intake has been extremely poor with regards to solute. He states he is trying to drink some Gatorade daily but his oral intake with regards to liquids has been poor as well. He states his mouth has been dry and he has had some orthostatic lightheadedness. He had some diarrhea initially but this has resolved. He has a known history ofhyponatremia for which she follows with Dr. Judy Guan as an outpatient. Hislast sodium was done in September and at that time was 129 which is about his baseline. (Last calendar year sodium has been running between 128 and 130). Since he has been fairly stable she has been checking them every 6 months. He has been diagnosed with SIADH previously which has been managed with electrolytedrinks and fluid restriction. Per documentation there was some wheezing on examon presentation however this was resolved at the time of my evaluation. Vital signs on presentation show a temperature of 97.5, heart rate has been between 59 and 77, blood pressure was 134/91, respiratory rate 14 oxygen saturations were 98% on room air. A CBC was not ordered but I have since ordered one and it is pending. His chemistry panel shows a sodium of 115, chloride is 83, creatinine is 0.68 and serum osmolality was 241. Urine osmolality was 351 but no urine sodium was obtained. Patient was given a DuoNeb and 1 L of IV fluids in the emergency department. [facility] Medical History Atherosclerotic heart disease of [place] coronary artery without angina pectoris Carotid bruit COPD (chronic obstructive pulmonary disease) Essential hypertension History of SIADH Hyperlipidemia Hypertension Home Medications aspirin 81 mg tablet,delayed release (Adult Aspirin Regimen) 81 mg PO QDAY heart11/29/17 [History Last Taken 10/31/19] coenzyme Q10 100 mg capsule (Co Q-10) 100 mg PO QDAY vitamin 11/29/17 [History Last Taken 11/01/19] multivitamin 1 tab PO QDAY vitamin 11/29/17 [History Last Taken 11/01/19] omega-3 fatty acids 1,000 mg capsule (Fish Oil Concentrate) 1,000 mg PO QDAY heart health 11/29/17 [History Last Taken 11/01/19] atorvastatin 10 mg tablet See Rx Instructions .Route .COMPLEX #45 tabs 01/07/23 [Rx Last Taken Unknown] lisinopril 10 mg tablet See Rx Instructions .Route .COMPLEX #90 tabs 07/11/23 [Rx Last Taken Unknown] oseltamivir 75 mg capsule (Tamiflu) 75 mg PO Q12H 5 days #10 caps 12/29/23 [Rx Last Taken Unknown] atenolol 25 mg tablet 25 mg PO QDAY #90 tabs 12/31/23 [Rx Last Taken Unknown] Allergy/AdvReac Type Severity Reaction Status Date / Time ibuprofen [From Advil] AdvReac Intermediate SOB Verified 01/01/24 11:53 Family History Father CAD (coronary artery disease) S/P CABG (coronary artery bypass graft) Mother CAD (coronary artery disease) Hypertension Kidney disease Brother CAD (coronary artery disease) S/P CABG (coronary artery bypass graft) Sister S/P CABG (coronary artery bypass graft) CAD (coronary artery disease) Diabetes Surgical History History of coronary artery bypass surgery (~01/11/10) History of hand surgery History of left heart catheterization History of tonsillectomy Social History Smoking Status: Former smoker quit date: 10/28/09 pack-years: 30 alcohol intake: never substance use type: does not use caffeine: Yes Type: coffee Number of servings: 2 ROS Constitutional Constitutional: Reports anorexia, chills, fatigue, malaise and weakness; Denies change in weight, fever(s), night sweats or other Eyes Eyes: Denies blurry vision, change in eye color, change in vision, discharge from eye(s), double vision, erythema, eye pain, loss of vision or other ENT HEENT: Reports headache(s), nasal congestion, nasal discharge and post nasal drip; Denies abnormal hearing, dysphagia, ear pain, epistaxis, hearing loss, sinus pressure, sore throat or other Cardiovascular Cardiovascular: Denies chest pain, claudication, dyspnea on exertion, edema, lightheadedness, orthopnea, palpitations, paroxysmal nocturnal dyspnea, rapid heart rate, syncope or other Respiratory/Chest Respiratory/Chest: Reports cough, shortness of breath with exertion and wheezing; Denies dyspnea, excessive phlegm production, hemoptysis, productive cough, shortness of breath at rest or other Gastrointestinal Gastrointestinal: Reports diarrhea; Denies abdominal pain, coffee ground emesis,constipation, dyspepsia, hematemesis, hematochezia, loose stools, melena, nausea, vomiting or other Genitourinary Genitourinary: Denies burning urination, difficulty urinating, dysuria, hematuria, nocturia, urinary frequency, urinary hesitancy, urinary incontinence,urinary urgency or other Musculoskeletal Musculoskeletal: Denies arthralgias, back pain, joint pain, joint stiffness, joint swelling, myalgias, neck pain or other Neurologic Neurologic: Denies abnormal gait, abnormal speech, confusion, disequilibrium, dizziness, focal weakness, headache(s), numbness, paresthesias, seizure-like activity, seizures, syncope, tingling, tremor(s) or other Psychiatric Psychiatric: Denies anxiety, depression, homicidal ideation, suicidal ideation or other Endocrine Endocrinology: Denies change in body appearance, cold intolerance, excessive sweating, heat intolerance, polydipsia, polyuria or other Hematologic/Lymphatic Hematologic/Lymphatic: Denies anemia, easy bleeding, easy bruising, lymphadenopathy or other Allergic/Immunologic Allergic/Immunologic: Denies rhinitis, hives, eczemia, asthma or other Vital Signs Vital Signs Vital Signs: 01/01/24 11:51 01/01/24 12:07 01/01/24 12:56 Temperature 97.5 F L Temperature Source Temporal Pulse Rate 59 L 77 Respiratory Rate 14 16 Respiratory Effort Normal Respiratory Pattern Normal Normal Blood Pressure 134/91 H Blood Pressure Mean 105 Pulse Ox 98 Oxygen Delivery Method Room Air 01/01/24 13:19 01/01/24 15:00 Temperature Temperature Source Pulse Rate 66 73 Respiratory Rate 12 18 Respiratory Effort Respiratory Pattern Blood Pressure 175/77 H 143/78 H Blood Pressure Mean 109 99 Pulse Ox 93 96 Oxygen Delivery Method Room Air Room Air Weight Weight: 65.7 kg Body Mass Index (BMI) 20.7 Physical Exam Const alert, oriented x3, no apparent distress, average body habitus, healthy appearing and well nourished Constitutional Narrative: Upper middle-aged, white male, sitting up in bed, appears weak but not overtly ill or toxic, at bedside, very pleasant General Appearance: cooperative HEENT normocephalic, head/scalp atraumatic, hearing grossly normal bilaterally and moist oral mucous membranes HEENT Narrative: Dentition is good for age, Mallampati is 1-2, no thrush Eyes PERRL, EOMs intact bilaterally and conjunctivae normal Eyes Narrative: No scleral icterus Neck no lymphadenopathy and supple Neck Narrative: Trachea midline, no thyroid enlargement Resp normal respiratory effort, no retractions, no use of accessory muscles and clearto auscultation bilaterally Auscultation: Negative for rales, rhonchi or wheezes Cardio regular rate, regular rhythm, S1 normal heart sound, S2 normal heart sound, no murmurs, no rub, no gallops and no clicks GI normal to inspection, nondistended, normoactive bowel sounds, soft to palpation and non-tender Extremity no clubbing, cyanosis or edema Extremity Narrative: Pedal pulses are 2+ Neuro oriented x3, CN's II-XII intact bilaterally, moves all extremities and no focal motor deficits Speech: speech normal Psych affect normal Psych Narrative: Interacts appropriately, eye contact is good Results Lab / Micro Data 01/01/24 12:28 Labs: Laboratory Results - last 24 hr 01/01/24 12:28: Sodium 115 L*, Potassium 4.3, Chloride 83 L, Carbon Dioxide 26.0, Anion Gap 6, BUN 8, Creatinine 0.68 L, Estim Creat Clear Calc 101.99, Est GFR (MDRD) Af Amer 151, Est GFR (MDRD) Non-Af 125, BUN/Creatinine Ratio 11.8, Glucose 121 H, Calcium 8.3 L 01/01/24 13:31: Serum Osmolality 241 L 01/01/24 13:50: Urine Osmolality 351 Assessment & Plan Assessment/Plan (1) Hyponatremia: (2) History of SIADH: (3) Influenza: (4) Generalized weakness: PLAN: Plan Acute on chronic hyponatremia -Patient has been diagnosed with SIADH and typically follows fluid restriction -P.o. intake has been poor with regards to solute and I suspect that he has had decreased solute and ongoing fluid intake resulting in worsening of his hyponatremia -Will fluid restrict -Given his poor oral intake due to decreased appetite from influenza A will start salt tablets 1 g 3 times daily -Check BMP every 6 hours x 3 -If sodium does not improve may need to consult Dr. Guan for assistance with his hyponatremia -He follows with her as an outpatient History of SIADH -As above -Managed with fluid restriction at baseline -Baseline sodium runs between 128 and 130 over the last year Influenza A -Diagnosed on 12/29/2023 -Has been on Tamiflu since that point in time -Has 5 tablets left we will continue -Supportive care with as needed antitussive and nebulizers Generalized weakness -Likely related to influenza A plus hyponatremia -PT consultation -Should improve with improvement in sodium and as he recovers from his influenzainfection -Will check CBC to rule out any anemia that could be contributing CAD/HTN/HPL -01/11/2010 KNOTT to LAD, EDYTA insitu to the RCA and SVG to DX, SVG to [facility] per Dr. Rubio -Continue home aspirin -Continue home atenolol -Continue home atorvastatin -Continue home lisinopril COPD -Patient is not oxygen dependent and takes no inhalers for this at baseline -Recommend outpatient follow-up if symptoms change History of tobacco abuse -Recommend ongoing cessation -As needed albuterol as patient did have some wheezing on presentation likely related to his influenza A infection -Quit smoking in 2009 but has 09-hrpy-[id number] history DVT prophylaxis -Lovenox subcu daily CODE STATUS -Full code is verified on admission Charges/Coding Visit Charges Inpatient E&M: 45276 Init Hosp L2 01/01/24 3228 <Electronically signed by Josee Guan DO> Cosigner Signature (if applicable): CC: Dr. Josee Guan, ; Dr. Rick Gaffney, ~ Signed [facility] Work Phone: Reason for referral (narrative)No reason for referral information availableWBl[facility] Work Phone: Chief Complaint and Reason for Visit Chief Complaint DRIVE THRU COVID EMMA T Chief Complaint INT LABS Chief Complaint 9 m fu Reason for Visit History of coronary artery bypass surgery Atherosclerotic heart disease of [place] coronary artery without angina pectoris Essential hypertension Hyperlipidemia Chief Complaint DUE ON OR AROUND JABIER E LISTED Chief Complaint DUE ON OR AROUND JABIER E LISTED DUE ON OR AROUND DATE LISTED Chief Complaint 9 MO WITH PFM INT LABS Reason for Visit History of coronary artery bypass surgery Essential hypertension Hyperlipidemia Chief Complaint INT LABS BA/FATIGUED/COUGH Weakness SEVERE HYPONATREMIA/GENERALIZED WEAKNESS Reason for Visit Influenza Acute bronchospasm Acute hyponatremia Generalized weakness Hyponatremia Influenza Atherosclerotic heart disease of [place] coronary artery without angina pectoris COPD (chronic obstructive pulmonary disease) Essential hypertension History of SIADH Hyperlipidemia Chief Complaint INT LABS BA/FATIGUED/COUGH Weakness SEVERE HYPONATREMIA/GENERALIZED WEAKNESS SEVERE HYPONATREMIA/GENERALIZED WEAKNESS SEVERE HYPONATREMIA/GENERALIZED WEAKNESS Reason for Visit Influenza Acute bronchospasm Acute hyponatremia Generalized weakness Hyponatremia Influenza Atherosclerotic heart disease of [place] coronary artery without angina pectoris COPD (chronic obstructive pulmonary disease) Essential hypertension History of SIADH Hyperlipidemia Chief Complaint INT LABS BA/FATIGUED/COUGH Weakness SEVERE HYPONATREMIA/GENERALIZED WEAKNESS SEVERE HYPONATREMIA/GENERALIZED WEAKNESS SEVERE HYPONATREMIA/GENERALIZED WEAKNESS Reason for Visit Influenza Acute bronchospasm Generalized weakness Hyponatremia Influenza Atherosclerotic heart disease of [place] coronary artery without angina pectoris COPD (chronic obstructive pulmonary disease) Essential hypertension Hyperlipidemia Acute hyponatremia Chief Complaint INT LABS BA/FATIGUED/COUGH Weakness SEVERE HYPONATREMIA/GENERALIZED WEAKNESS SEVERE HYPONATREMIA/GENERALIZED WEAKNESS SEVERE HYPONATREMIA/GENERALIZED WEAKNESS DUE AROUND DATE LISTED Reason for Visit Influenza Acute bronchospasm Generalized weakness Hyponatremia Influenza Atherosclerotic heart disease of [place] coronary artery without angina pectoris COPD (chronic obstructive pulmonary disease) Essential hypertension Hyperlipidemia Acute hyponatremia Chief Complaint Admit Date Peripheral vascular disease September 9:18am PVD November 06, 2024 7 :40am Reason for Visit Admit Date Peripheral vascular disease September 9:18am Chief Complaint Admit Date NEEDS ORDER February 19, 2025 12: 59pm XRAY February 23, 2025 9:0 4am 9 M FU March 02, 2025 8:08am CAD March 17, 2025 6:28a m Coronary artery disease March 17, 2025 1 0:30am Reason for Visit Admit Date History of coronary artery bypass surger y March 02, 2025 8:08am PAD (peripheral artery disease) March 02, 2025 8:08am Atherosclerotic heart diseas e of [place] coronary artery without angina pectoris March 02, 2025 8:08am Hyperlipidemia March 02, 2025 8:08am Hypertension March 02, 2025 8:08am Chief Complaint Admit Date NEEDS ORDER February 19, 2025 12: 59pm XRAY February 23, 2025 9:0 4am 9 M FU March 02, 2025 8:08am CAD March 17, 2025 6:28a m Coronary artery disease March 17, 2025 1 0:30am Chronic obstructive pulmonary disease, u nspecified March 25, 2025 7:37am Family History Relationship Condition Age at Onset Recorded Date/T milady father Coronary artery disease Unknown Status post coronary artery bypass graft Unknown mother Coronary artery disease Unknown Hypertension Unknown Kidney disorder Unknown brother Coronary artery disease Unknown sister Status post coronary artery bypass graft Unknown Coronary artery disease Unknown Diabetes mellitus Unknown Advance Directives Advance Directive Response Recorded Date/ Time Living Will No July 19, 2021 4:36pm Power of Sales Utility Representative No June 4:36pm Advance Directive Response Recorded Date/ Time Living Will No July 19, 2021 3:36pm Power of Sales Utility Representative No June 3:36pm Advance Directive Response Recorded Date/ Time Name of Medical Power of Sales Utility Representative Bettina Rivera January 01, 2024 12:07pm Living Will Yes January 01, 2024 12:07pm Power of Sales Utility Representative Yes December 31 12:07pm Advance Directive Response Recorded Date/ Time Name of Medical Power of Sales Utility Representative Bettina Rivera January 01, 2024 5:48pm Living Will Yes January 01, 2024 5:48pm Power of Sales Utility Representative Yes December 31 5:48pm Advance Directive Response Recorded Date/ Time Name of Medical Power of Sales Utility Representative Bettina Rivera January 01, 2024 6:48pm Living Will Yes January 01, 2024 6:48pm Power of Sales Utility Representative Yes December 31 6:48pm Advance Directive Response Recorded Date/ Time Living Will Yes January 01, 2024 6:48pm Do you have a Healthcare Power of Sales Utility Representative? Yes January 01, 2024 6:48pm Reason for Referral Specialty Diagnoses / Procedures Referred By Contac t Referred To Contact Pulmonary and Critical Care Medicine Diagnoses Pleural thickening SIADH (syndrome of inappropriate ADH production) (HCC) Procedures CONSULT TO PULM/CRITICAL CARE OFFICE/OUTPATIENT [facility] [address] [place] [address] [place] [address] Referral ID Status Reason Start Date Expiration Date Visits Requested Visits Authorized [id number] Authorized PCP Requested Referral 02/20/2024 02/19/2025 1 1 Specialty Diagnoses / Procedures Referred By Contac t Referred To Contact Pulmonary and Critical Care Medicine Diagnoses Pleural plaque Procedures CONSULT TO PULM/CRITICAL CARE OFFICE/OUTPATIENT [facility] [address] [place] [address] [place] [address] Referral ID Status Reason Start Date Expiration Date Visits Requested Visits Authorized [id number] Authorized PCP Requested Referral 03/18/2024 03/18/2025 1 1 Specialty Diagnoses / Procedures Referred By Contac t Referred To Contact CT IMAGING Diagnoses Interstitial pulmonary disease (HCC) Procedures CT CHEST WO IVCON DIAGNOSTIC COMPUTED TOMOGRAPHY THORAX W/O CNTRST Ramon Samuel MD [address] [place] [address] Ct Imaging [place] [address] Referral ID Status Reason Start Date Expiration Date Visits Requested Visits Authorized [id number] Pending Review Auto-Generat ed Referral 03/30/2025 04/29/2025 1 1 Specialty Diagnoses / Procedures Referred By Contac t Referred To [facility] Diagnoses Pleural plaque Centrilobular emphysema (HCC) Procedures SIX MINUTE WALK CARDIOPULMONARY EXERCISE STRESS Ramon Samuel MD [address] [place] [address] Respiratory [place] [id number] Referral ID Status Reason Start Date Expiration Date Visits Requested Visits Authorized [id number] Authorized Auto-Generat ed Referral 03/30/2024 04/29/2025 1 1 Specialty Diagnoses / Procedures Referred By Contac t Referred To [facility] Diagnoses Pleural plaque Centrilobular emphysema (HCC) Procedures LUNG DIFFUSION CAPACITY (DLCO) DIFFUSING CAPACITY Ramon Samuel MD [address] [place] [address] [place] [address] Referral ID Status Reason Start Date Expiration Date Visits Requested Visits Authorized [id number] Authorized Auto-Generat ed Referral 03/30/2024 04/29/2025 1 1 Specialty Diagnoses / Procedures Referred By Contac t Referred To [facility] Diagnoses Pleural plaque Centrilobular emphysema (HCC) Procedures LUNG VOLUMES Ramon Samuel MD [address] [place] [address] [address] Referral ID Status Reason Start Date Expiration Date Visits Requested Visits Authorized [id number] Pending Review Auto-Generat ed Referral 03/30/2024 04/29/2025 1 1 Specialty Diagnoses / Procedures Referred By Contac t Referred To [facility] Diagnoses Pleural plaque Centrilobular emphysema (HCC) Procedures SPIROMETRY WITH DILATOR IF OBSTRUCTED BRNCDILAT RSPSE SPMTRY PRE&POST-BRNCDILAT ADMN Ramon Samuel MD [address] [place] [address] [address] Referral ID Status Reason Start Date Expiration Date Visits Requested Visits Authorized [id number] Authorized Auto-Generat ed Referral 03/30/2024 04/29/2025 1 1 Summary Purpose Additional Source Comments Goals (unrecognized section and content) Goals may be documented in a n alternate sectionGoals may be documented in an alternate sectionGoals may be documented in an alternate sectionGoals may be documented in an alternate sectionGoals may be documented in an alternate sectionGoals may be documented in an alternate sectionGoals may be documented in an alternate sectionGoals may be documented in an alternate sectionGoals may be documented in an alternate sectionGoals may be documented in an alternate sectionGoals may be documented in an alternate section Care Teams (unrecognized sec tion and content) Team Status: Active Member Role Status Dates Dr. Rick Gaffney , DO Family Provider Active Dr. Rick Gaffney , DO Primary Care Provider Active Team Status: Inactive Member Role Status Dates Dr. Rick Gaffney , DO Primary Care Provider Active Dr. Judy Guan , DO Attending Provider Active Team Status: Inactive Member Role Status Dates Dr. Rick Gaffney DO Primary Care Provider, Referrin g Provider Active Karla Boyer PA, PA Attending Provider Active Team Status: Active Member Role Status Dates Dr. Rick Gaffney DO Primary Care Provider Active Karla Boyer PA, PA Attending Provider, Referr ing Provider Active Team Status: Inactive Member Role Status Dates Dr. Rick Gaffney DO Primary Care Provider Active Karla Boyer PA, PA Attending Provider, Referr ing Provider Active Team Status: Inactive Member Role Status Dates Dr. Rick Gaffney , DO Primary Care Provider, Referrin g Provider Active Kurt Quintero FIRST OFFICER, FIRST OFFICER-C Attending Provider Active Team Status: Active Member Role Status Dates Dr. Rick Gaffney DO Primary Care Provider Active Dr. Dereck Delvalle MD Emergency Provider Active Dr. Josee Guan DO Attending Provider Active Team Status: Active Member Role Status Dates Dr. Rick Gaffney DO Primary Care Provider Active Dr. Dereck Delvalle MD Emergency Provider Active Dr. Josee Guan DO Admit Provider, Attending Provide r Active Team Status: Active Member Role Status Dates Dr. Rick Gaffney DO Primary Care Provider Active Dr. Dereck Delvalle MD Emergency Provider Active Dr. Josee Guan DO Admit Provider, Other Provider Ac tive Dr. Bull Gusman MD Attending Provider, Other Provi carmen Active Dr. Judy Guan , Other Provider Active Team Status: Inactive Member Role Status Dates Dr. Rick Gaffney DO Primary Care Provider Active Dr. Dereck Delvalle MD Emergency Provider Active Dr. Josee Guan DO Admit Provider, Other Provider Ac tive Dr. Bull Gusman MD Attending Provider Active Dr. Judy Guan DO Other Provider Active Team Status: Active Member Role Status Dates Dr. Rick Gaffney DO Family Provider Active Dr. Jeferson Coffey MD Primary Care Provider Active Team Status: Inactive Member Role Status Dates Dr. Judy Guan DO Attending Provider, Referring P rosenader Active Dr. Jeferson Coffey MD Primary Care Provider Active Mri Technician Relationship Specialty Start Date End Date Jeferson Coffey MD [address] [facility] [address] [place] [address] PCP - General Internal Medicine 03/30/24 Ramon Samuel MD [address] [place] [address] Pulmonary and Critical Care Medicine 03/30/24 Mri Technician Relationship Specialty Start Date End Date Jeferson Coffey MD [address] [facility] [address] [place] [address] PCP - General Internal Medicine 03/30/24 Ramon Samuel MD [address] [place] [address] Pulmonary and Critical Care Medicine 03/30/24 Mri Technician Relationship Specialty Start Date End Date Jeferson Coffey MD [facility] [address] [place] [address] PCP - General Internal Medicine 03/30/24 Ramon Samuel MD [address] [place] [address] Pulmonary and Critical Care Medicine 03/30/24 Mri Technician Relationship Specialty Start Date End Date Jeferson Coffey MD [facility] [address] [place] [address] PCP - General Internal Medicine 03/30/24 Ramon Samuel MD [address] [place] [address] Pulmonary and Critical Care Medicine 03/30/24 Mri Technician Relationship Specialty Start Date End Date Jeferson Coffey MD [address] [facility] [address] [place] [address] PCP - General Internal Medicine 03/30/24 Ramon Samuel MD [address] [place] [address] Pulmonary and Critical Care Medicine 03/30/24 Mri Technician Relationship Specialty Start Date End Date Jeferson Coffey MD [address] [facility] [address] [place] [address] PCP - General Internal Medicine 03/30/24 Ramon Samuel MD [address] [place] [address] Pulmonary and Critical Care Medicine 03/30/24 Mri Technician Relationship Specialty Start Date End Date Jeferson Coffey MD [facility] [address] [place] [address] PCP - General Internal Medicine 03/30/24 Ramon Samuel MD [address] [place] [address] Pulmonary and Critical Care Medicine 03/30/24 Mri Technician Relationship Specialty Start Date End Date Jeferson Coffey MD [facility] [address] [place] [address] PCP - General Internal Medicine 03/30/24 Ramon Samuel MD [address] [place] [address] Pulmonary and Critical Care Medicine 03/30/24 Mri Technician Relationship Specialty Start Date End Date Jeferson Coffey MD [address] [facility] [address] [place] [address] PCP - General Internal Medicine 03/30/24 Ramon Samuel MD [address] [place] [address] Pulmonary and Critical Care Medicine 03/30/24 Mri Technician Relationship Specialty Start Date End Date Jeferson Coffey MD [address] [facility] [address] [place] [address] PCP - General Internal Medicine 03/30/24 Ramon Samuel MD [address] [place] [address] Pulmonary and Critical Care Medicine 03/30/24 Team Status: Active Member Role Status Dates Dr. Jeferson Coffey MD Primary Care Provider Active Team Status: Inactive Member Role Status Dates Dr. Jeferson Coffey MD Referring Provider Active Start: October 08, 2024 End: October 08, 2024 BIANCA Garcia Attending Provider Active Star t: October 08, 2024 End: October 08, 2024 Team Status: Inactive Member Role Status Dates BIANCA Garcia Attending Provider Active Star t: November 06, 2024 End: November 06, 2024 BIANCA Garcia Referring Provider Active Star t: November 06, 2024 End: November 06, 2024 Dr. Jeferson Coffey MD Primary Care Provider Active Start: November 06, 2024 End: November 06, 2024 Team Status: Active Member Role Status Dates Dr. Jeferson Coffey MD Primary Care Provider Active Start: November 06, 2024 Dr. Damon Melendrez MD Attending Provider Active S tart: November 06, 2024 BIANCA Garcia Referring Provider Active Star t: November 06, 2024 Team Status: Inactive Member Role Status Dates Dr. Jeferson Coffey MD Primary Care Provider Active Start: December 11, 2024 End: December 11, 2024 Dr. Jeferson Coffey MD Attending Provider Active Start: December 11, 2024 End: December 11, 2024 Dr. Jeferson Coffey MD Referring Provider Active Start: December 11, 2024 End: December 11, 2024 Team Status: Inactive Member Role Status Dates Dr. Jeferson Coffey MD Primary Care Provider Active Start: December 14, 2024 End: December 14, 2024 Dr. Jeferson Coffey MD Attending Provider Active Start: December 14, 2024 End: December 14, 2024 Dr. Jeferson Coffey MD Referring Provider Active Start: December 14, 2024 End: December 14, 2024 Team Status: Inactive Member Role Status Dates Dr. Jeferson Coffey MD Primary Care Provider Active Start: December 31, 2024 End: December 31, 2024 Dr. Jeferson Coffey MD Attending Provider Active Start: December 31, 2024 End: December 31, 2024 Dr. Jeferson Coffey MD Referring Provider Active Start: December 31, 2024 End: December 31, 2024 Team Status: Inactive Member Role Status Dates Dr. Jeferson Coffey MD Primary Care Provider Active Start: February 19, 2025 End: February 19, 2025 Dr. Jeferson Coffey MD Attending Provider Active Start: February 19, 2025 End: February 19, 2025 Dr. Jeferson Coffey MD Referring Provider Active Start: February 19, 2025 End: February 19, 2025 Team Status: Inactive Member Role Status Dates Dr. Jeferson Coffey MD Primary Care Provider Active Start: February 23, 2025 End: February 23, 2025 Dr. Ángel iNchole MD Attending Provider Active S tart: February 23, 2025 End: February 23, 2025 Team Status: Inactive Member Role Status Dates Dr. Jeferson Coffey MD Primary Care Provider Active Start: March 02, 2025 End: March 02, 2025 Dr. Jeferson Coffey MD Referring Provider Active Start: March 02, 2025 End: March 02, 2025 Karla Boyer PA, PA Attending Provider Active Start: March 02, 2025 End: March 02, 2025 Team Status: Inactive Member Role Status Dates Dr. Jeferson Coffey MD Primary Care Provider Active Start: March 17, 2025 End: March 17, 2025 Karla Boyer PA, PA Attending Provider Active Start: March 17, 2025 End: March 17, 2025 Karla Boyer PA, PA Referring Provider Active Start: March 17, 2025 End: March 17, 2025 Team Status: Active Member Role Status Dates Dr. Jeferson Coffey MD Primary Care Provider Active Start: March 17, 2025 Karla VALENZUELA PA Referring Provider Active Start: March 17, 2025 Karla VALENZUELA PA Other Provider Active Start: March 17, 2025 Dr. Ángel Nichole MD Attending Provider Active S tart: March 17, 2025 Team Status: Inactive Member Role Status Dates Dr. Jeferson Coffey MD Primary Care Provider Active Start: March 25, 2025 End: March 25, 2025 Dr. Jeferson Coffey MD Attending Provider Active Start: March 25, 2025 End: March 25, 2025 Dr. Jeferson Coffey MD Referring Provider Active Start: March 25, 2025 End: March 25, 2025 Mri Technician Relationship Specialty Start Date End Date Jeferson Coffey MD [address] [facility] [address] [place], [place] [address] PCP - General Internal Medicine 03/30/24 Ramon Samuel MD [address], [place] [id number] Pulmonary and Critical Care Medicine 03/30/24 Mri Technician Relationship Specialty Start Date End Date Jeferson Coffey MD [address] [facility] [address] [place], [place] [id number] PCP - General Internal Medicine 03/30/24 Ramon Samuel MD [address] [place] [address] Pulmonary and Critical Care Medicine 03/30/24 Source Comments (unrecognize d section and content) In the event this informatio n is protected by the Federal Confidentiality of Alcohol and Drug Abuse Patient Records regulations: The Federal rules restrict any use of the information to criminally investigate or prosecute any alcohol or drug abuse patient.[facility] TroyIn the event this information is protected by the Federal Confidentiality of Alcohol and Drug Abuse Patient Records regulations: The Federal rules restrict any use of the information to criminally investigate or prosecute any alcohol or drug abuse patient.[facility] TroyIn the event this information is protected by the Federal Confidentiality of Alcohol and Drug Abuse Patient Records regulations: The Federal rules restrict any use of the information to criminally investigate or prosecute any alcohol or drug abuse patient.[facility] TroyIn the event this information is protected by the Federal Confidentiality of Alcohol and Drug Abuse Patient Records regulations: The Federal rules restrict any use of the information to criminally investigate or prosecute any alcohol or drug abuse patient.[facility] TroyIn the event this information is protected by the Federal Confidentiality of Alcohol and Drug Abuse Patient Records regulations: The Federal rules restrict any use of the information to criminally investigate or prosecute any alcohol or drug abuse patient.[facility] TroyIn the event this information is protected by the Federal Confidentiality of Alcohol and Drug Abuse Patient Records regulations: The Federal rules restrict any use of the information to criminally investigate or prosecute any alcohol or drug abuse patient.[facility] TroyIn the event this information is protected by the Federal Confidentiality of Alcohol and Drug Abuse Patient Records regulations: The Federal rules restrict any use of the information to criminally investigate or prosecute any alcohol or drug abuse patient.[facility] TroyIn the event this information is protected by the Federal Confidentiality of Alcohol and Drug Abuse Patient Records regulations: The Federal rules restrict any use of the information to criminally investigate or prosecute any alcohol or drug abuse patient.[facility] TroyIn the event this information is protected by the Federal Confidentiality of Alcohol and Drug Abuse Patient Records regulations: The Federal rules restrict any use of the information to criminally investigate or prosecute any alcohol or drug abuse patient.[facility] TroyIn the event this information is protected by the Federal Confidentiality of Alcohol and Drug Abuse Patient Records regulations: The Federal rules restrict any use of the information to criminally investigate or prosecute any alcohol or drug abuse patient.[facility] TroyIn the event this information is protected by the Federal Confidentiality of Alcohol and Drug Abuse Patient Records regulations: The Federal rules restrict any use of the information to criminally investigate or prosecute any alcohol or drug abuse patient.[facility] TroyIn the event this information is protected by the Federal Confidentiality of Alcohol and Drug Abuse Patient Records regulations: The Federal rules restrict any use of the information to criminally investigate or prosecute any alcohol or drug abuse patient.[facility] TroyIn the event this information is protected by the Federal Confidentiality of Alcohol and Drug Abuse Patient Records regulations: The Federal rules restrict any use of the information to criminally investigate or prosecute any alcohol or drug abuse patient.[facility] TroyIn the event this information is protected by the Federal Confidentiality of Alcohol and Drug Abuse Patient Records regulations: The Federal rules restrict any use of the information to criminally investigate or prosecute any alcohol or drug abuse patient.[facility] TroyIn the event this information is protected by the Federal Confidentiality of Alcohol and Drug Abuse Patient Records regulations: The Federal rules restrict any use of the information to criminally investigate or prosecute any alcohol or drug abuse patient.[facility] TroyIn the event this information is protected by the Federal Confidentiality of Alcohol and Drug Abuse Patient Records regulations: The Federal rules restrict any use of the information to criminally investigate or prosecute any alcohol or drug abuse patient.[facility] TroyIn the event this information is protected by the Federal Confidentiality of Alcohol and Drug Abuse Patient Records regulations: The Federal rules restrict any use of the information to criminally investigate or prosecute any alcohol or drug abuse patient.[facility] TroyIn the event this information is protected by the Federal Confidentiality of Alcohol and Drug Abuse Patient Records regulations: The Federal rules restrict any use of the information to criminally investigate or prosecute any alcohol or drug abuse patient.[facility] TroyIn the event this information is protected by the Federal Confidentiality of Alcohol and Drug Abuse Patient Records regulations: The Federal rules restrict any use of the information to criminally investigate or prosecute any alcohol or drug abuse patient.[facility] TroyIn the event this information is protected by the Federal Confidentiality of Alcohol and Drug Abuse Patient Records regulations: The Federal rules restrict any use of the information to criminally investigate or prosecute any alcohol or drug abuse patient.[facility] TroyIn the event this information is protected by the Federal Confidentiality of Alcohol and Drug Abuse Patient Records regulations: The Federal rules restrict any use of the information to criminally investigate or prosecute any alcohol or drug abuse patient.[facility] TroyIn the event this information is protected by the Federal Confidentiality of Alcohol and Drug Abuse Patient Records regulations: The Federal rules restrict any use of the information to criminally investigate or prosecute any alcohol or drug abuse patient.[facility] TroyIn the event this information is protected by the Federal Confidentiality of Alcohol and Drug Abuse Patient Records regulations: The Federal rules restrict any use of the information to criminally investigate or prosecute any alcohol or drug abuse patient.[facility] Reason for Visit (unrecogniz ed section and content) Reason Comments Consult [facility] Specialty Diagnoses / Procedures Referred By Contac t Referred To Contact CT IMAGING Diagnoses Pleural effusion Procedures CT CHEST W IVCON DIAGNOSTIC COMPUTED TOMOGRAPHY THORAX W/[place] [address] [place] [address] Ct Imaging [place] [address] Referral ID Status Reason Start Date Expiration Date V isits Requested Visits Authorized [id number] Closed Auto-Generate d Referral 02/20/2024 03/21/2025 1 1 Reason Comments Results Reason Comments Orders Reason Comments New Patient New lung nodule on C T scan Specialty Diagnoses / Procedures Referred By Contac t Referred To Contact Pulmonary and Critical Care Medicine Diagnoses Pleural plaque Procedures CONSULT TO PULM/CRITICAL CARE OFFICE/OUTPATIENT NEW HIGH MDM [address] [place] [address] [place] [address] Referral ID Status Reason Start Date Expiration Date V isits Requested Visits Authorized [id number] Closed PCP Requested Referral 03/18/2024 03/18/2025 1 1 Reason Comments Spirometry Specialty Diagnoses / Procedures Referred By Contac t Referred To [facility] Diagnoses Pleural plaque Centrilobular emphysema (HCC) Procedures SPIROMETRY WITH DILATOR IF OBSTRUCTED BRNCDILAT RSPSE SPMTRY PRE&POST-BRNCDILAT ADMN Ramon Samuel MD [address] [place] [id number] [place] [address] Referral ID Status Reason Start Date Expiration Date V isits Requested Visits Authorized [id number] Closed Auto-Generate d Referral 03/30/2024 04/29/2025 1 1 Specialty Diagnoses / Procedures Referred By Contac t Referred To [facility] Diagnoses Pleural plaque Centrilobular emphysema (HCC) Procedures LUNG VOLUMES Ramon Samuel MD [address] [place] [id number] [place] [address] Referral ID Status Reason Start Date Expiration Date V isits Requested Visits Authorized [id number] Closed Auto-Generate d Referral 10/28/2023 10/27/2024 1 1 Specialty Diagnoses / Procedures Referred By Contac t Referred To [facility] Diagnoses Pleural plaque Centrilobular emphysema (HCC) Procedures LUNG DIFFUSION CAPACITY (DLCO) DIFFUSING CAPACITY Ramon Samuel MD [address] [place] [address] [facility] [address] [place] [address] Referral ID Status Reason Start Date Expiration Date V isits Requested Visits Authorized [id number] Closed Auto-Generate d Referral 03/30/2024 04/29/2025 1 1 Specialty Diagnoses / Procedures Referred By Contac t [facility] Diagnoses Pleural plaque Centrilobular emphysema (HCC) Procedures SIX MINUTE WALK CARDIOPULMONARY EXERCISE STRESS Ramon Samuel MD [address] [place] [address] [facility] [address] [place] [address] Referral ID Status Reason Start Date Expiration Date V isits Requested Visits Authorized [id number] Closed Auto-Generate d Referral 03/30/2024 04/29/2025 [address] questions Reason Comments Patient Update Reason Comments Follow Up Reason Comments Results (unrecognized sect ion and content) No Status Records FoundNo Status Records Found INFORMATION SOURCE (unrecogn ized section and content) DATE CREATED AUTHOR 03/31/2025 [facility] DATE CREATED AUTHOR AUTHOR'S ORGANIZ ATION 04/06/2025 [facility] FOR RECORDS PERTAINING TO PATIENTS WHO ARE [...] BE BASED ON THE PRIMARY CLINICAL RECORDS. [employer] provides no warranty or guarantee of the accuracy or completeness of information in this document.
== END 2025-05-09 23:59 | disposition home or self-care (01) ==
LOC: LAB 10:57
PROVIDERS: PCP Internal Medicine; Visit Provider Internal Medicine
DX: Z00.00 Encounter for general adult medical examination without abnormal findings (principal)
CPT/HCPCS: 36415; 84295

== ENCOUNTER → 2025-08-25 | Outpatient (CLI) | payer OTHER, SELFPAY ==
--- OUTSIDE RECORDS SUMMARY | 2025-08-25 07:13 | XMS RPT_ITS | CCD ---
Author Organization [facility] Care Team Providers Care Proposal Coordinator Name Role Phone Aracely RN, Danitza Diego Unavailable Unavailable Valerie Medeiros Unavailable Unavailable Roof SALT LIFTER, Kurt Menon Unavailable BENJAMÍN Boyer, Karla Ray Unavailable [phone] Valerie Medeiros Y Unavailable Unavailable Tyler Johnston Unavailable Unavailable Tyler Johnston Unavailable Unavailable Dr. Rick Gaffney Primary Care Provider [phone] Dr. Rick Gaffney Referring Provider BIANCA Araujo Attending Provider Dr. Rick Gaffney Primary Care Provider [phone] Dr. Rick Gaffney Referring Provider [phone] Jacques Blair Attending Provider [phone] Dr. Rick Gaffney Primary Care Provider [phone] Dr. Rick Gaffney Referring Provider [phone] BIANCA Bowman Attending Provider Dr. Rick Gaffney Primary Care Provider [phone] Dr. Rick Gaffney Referring Provider Leon SALT LIFTER, VANIA-Nuha Menon Attending Provider Dr. Dereck Delvalle Emergency Provider Dr. Josee Guan Attending Provider [phone] Josee Guan Admit Provider Dr. Josee uGan Other Provider Dr. Bull Gusman Attending Provider Dr. Bull Gusman Other Provider Dr. Judy Guan Other Provider Dr. Rick Gaffney Primary Care Provider Dr. Rick Gaffney Referring Provider Roof SALT LIFTER, SALT LIFTER-C Kurt Menon Attending Provider Dr. Dereck Delvalle Emergency Provider Dr. Josee Guan Attending Provider Roge, Dr. Tripp Admit Provider Dr. Josee Guan Other Provider Naseem, Dr. Gottlieb Attending Provider Naseem, Dr. Gottlieb Other Provider Dr. Judy Guan Other Provider Unavailable Primary Care Provider Unavailabl trav Samuel MD, Ramon Diego Unavailable Jeferson Thomas MD Primary Care Provider Erlinda RODRIGUEZ, Dr. Soares Referring Provider Jodee Underwood Attending Provider Jodee Underwood Referring Provider Dr. Jeferson Thomas MD Primary Care Provider Dr. Damon Melendrez MD Attending Provider Dr. Jeferson Thomas MD Attending Provider Dr. Jeferson Thomas MD Primary Care Provider Dr. Jeferson Thomas MD Referring Provider Dayanara RODRIGUEZ, Dr. Neal Attending Provider Karla Bowman Attending Provider Karla Bowman Referring Provider Karla Bowman Other Provider Dr. Jeferson Thomas MD Primary Care Provider Erlinda RODRIGUEZ, Dr. Soares Attending Provider [phone] Erlinda RODRIGUEZ, Dr. Soares Referring Provider Bonezzi, Jeferson Primary Care Unavailable Judy Guan Attending Unavailable Bonezzi, Jeferson Primary Care Unavailable Bonezzi, Jeferson Referring Unavailable Bonezzi, Jeferson Attending Unavailable Bonezzi, Jeferson Primary Care Unavailable Karla Bowman Referring Unavail able Karla Bowman Attending Unavail able Bonezzi, Jeferson Primary Care Unavailable Bonezzi, Jefersno Referring Unavailable Bonezzi, Jeferson Attending Unavailable Bonezzi, Jeferson Primary Care Unavailable Ángel Nichole Attending Unavailable Bonezzi, Jeferson Primary Care Unavailable Bonezzi, Jeferson Referring Unavailable Karla Bowman Attending Unavail able Bonezzi, Jefesron Primary Care Unavailable Mitchell, Jodee Referring Unavailable Damon Melendrez Attending Unavailable Ángel Nichole Attending Unavailable Bonezzi, Jeferson Primary Care Unavailable Karla Bowman Referring Unavail able Karla Bowman Consulting Unavail able Bonezzi, Jeferson Referring Unavailable Mitchell, Jodee Attending Unavailable Bonezzi, Jeferson Attending Unavailable Bonezzi, Jeferson Primary Care Unavailable Bonezzi, Jeferson Primary Care Unavailable Mitchell, [...] Jeferson Referring Unavailable Bonezzi, Jeferson Attending Unavailable SYDNEY, RUBIO Referring Unavailable BONEZZI, JEFERSON M Primary Care Unavailable HAIR ADAMES Attending Unavailable BONEZZI, JEFERSON M Primary Care Unavailable SYDNEY, RUBIO Referring Unavailable BONEZZI, JEFERSON M Primary Care Unavailable SYDNEY, RUBIO Referring Unavailable BONEZZI, JEFERSON M Primary Care Unavailable SYDNEY, RUBIO Attending Unavailable SELF Referring Unavailable BONEZZI, JEFERSON M Primary Care Unavailable JEFERSON THOMAS Primary Care Unavailable RUBIO GRIMES Referring Unavailable JEFERSON THOMAS Primary Care Unavailable RUBIO GRIMES Referring Unavailable RUBIO GRIMES Referring Unavailable JEFERSON THOMAS Primary Care Unavailable RUBIO GRIMES Attending Unavailable Emma BUTTS, Therese Diego Unavailable Jany Blanco MD Unavailable Jeferson Thomas MD Unavailable [phone] Allergies Allergy Classification Reported Allergen(s) Allergy Type Date of Onset Reaction(s) Facility (15 sources) Ibuprofen Drug Allergy 1 SOB [facility] (1 source) Ibuprofen Drug Allergy 5 [facility] Repository (2 sources) Adhesive Tape Allergy to substance (disorder) 9 [facility] Hand [facility] (2 sources) Ibuprofen Drug Allergy 6 [facility] Hand [facility] (2 sources) STINGING INSECTS Allergy to substance (disorder) 6 [facility] Medications Current Medications Medication Drug Class(es) Dates Sig (Normalized) Sig (Original) [id number] 200 actuat albuterol 0.09 mg/actuat metered dose inhaler (4 sources) beta2-Adrenergic Agonist Start: 10-08-2024 Albuterol Sulfate 90 mcg/actuation HFA aerosol inhaler Active 2 NMA INHALATION EVERY 6 HOURS as needed October 08, 2024 1:00am amLODIPine 2.5 mg oral tablet (6 sources) Dihydropyridine Calcium Channel Mackenzie Start: 03-02-2025 take 1 tablet by mouth once daily Amlodipine (Norvasc) 2.5 mg tablet Active 2.5 mg PO daily 90 March 02, 2025 12:00am take 1 tablet by mouth once [facility] amlodipine 10 mg tablet Take 1 tablet by mouth once a day active Lissa Gaxiola AT [facility] aspirin 81 mg delayed release oral tablet (20 sources) Nonsteroidal Anti-inflammatory Drug Start: 04-24-2011 take 1 tablet by mouth once daily Aspirin (Adult Aspirin Regimen) 81 mg tablet,delayed release (DR/EC) Active 81 mg PO daily November 29, 2017 1:00am heart Start: 04-24-2011 take 1 tablet by luis th once daily ASPIRIN 81 MG TABS One tablet by mouth daily ASPIRIN [id number] Trish Angel Start: 04-24-2011 take 1 tablet by luis th once daily ASPIRIN 81 MG TABS One tablet by mouth daily ASPIRIN [id number] Trish Angel ASPIRIN LOW DOSE (ASPIRIN) 81 MG TBEC (2 sources) Start: 04-09-2019 aspirin 81 mg tablet,delayed release 1 tablet once a day active Lissa Gaxiola AT [facility] atenolol 25 mg oral tablet (20 sources) beta-Adrenergic Mackenzie Start: 04-24-2011 End: 12-30-2024 atenolol 25 mg tablet 1 tablet once a day active Lissa Gaxiola AT [facility] Start: 04-24-2011 take 1 tablet by luis th twice daily ATENOLOL 25 MG TABS One tablet by mouth twice daily ATENOLOL [id number] Jacques Blair MD atorvastatin 10 mg oral tablet (20 sources) HMG-CoA Reductase Inhibitor Start: 01-07-2023 End: 03-02-2025 Atorvastatin 10 mg tablet Discontinued 0 .ROUTE .COMPLEX 45 4 March 30, 2024 9:51am March 02, 2025 8:23am TAKE ONE-HALF (1/2) TABLET AT BEDTIME Start: 12-12-2020 End: 01-07-2023 take 5 mg by mouth at bedtime Atorvastatin 10 mg table t Discontinued 5 mg PO BEDTIME 45 3 February 02, 2022 9:33am January 07, 2023 8:53am Start: 12-12-2020 End: 01-07-2023 take 5 mg by mouth at bedtime Atorvastatin Discontinue d 5 MG PO BEDTIME 45 February 02, 2022 9:33am January 07, 2023 8:53am Start: 02-28-2012 End: 12-12-2020 Lipitor 10 mg tablet 1 table t once a day active Lissa Gaxiola AT [facility] Start: 02-28-2012 take 0.5 tablet by m outh at bedtime LIPITOR 20 MG TABS 1/2 tablet by mouth at bedtime. ATORVASTATIN CALCIUM [id number] Jacques Blair MD Start: 04-24-2011 take 1 tablet by luis th at bedtime LIPITOR 20 MG TABS One tablet by mouth at bedtime. ATORVASTATIN CALCIUM [id number] Trish Angel End: 02-19-2024 take 10 mg by mouth once daily atorvastatin (LIPITOR) 20 mg tablet Take 10 mg by mouth once daily. 0 02/19/2024 Discontinued COENZYME Q-10 (COENZYME Q10) 200 MG CAPS (2 sources) Start: 04-09-2019 coenzyme Q10 2 00 mg capsule 1 capsule once a day active Lissa Gaxiola AT [facility] ubidecarenone 100 mg oral ca psule (20 sources) Start: 11-29-2017 Coenzyme Q10 ( Co Q-10) 100 mg capsule Active 100 mg PO daily November 29, 2017 1:00am vitamin Start: 09-29-2012 take 1 tablet by luis th once daily CO Q-10 100 MG CAPS One tablet by mouth daily COENZYME Q10 [id number] Jacques Blair MD Start: 09-29-2012 take 1 tablet by luis th once daily CO Q-10 100 MG CAPS One tablet by mouth daily COENZYME Q10 [id number] Jacques Blair MD Start: 09-29-2012 take 1 tablet by luis th once daily CO Q-10 100 MG CAPS One tablet by mouth daily COENZYME Q10 [id number] Jacques Blair MD coenzyme Q10 (H2Q COQ10) 200 mg/gram powd (20 sources) coenzyme Q10 (H2 Q COQ10) 200 mg/gram powd Take by mouth once daily. Active coenzyme Q10 (H2 Q COQ10) 200 mg/gram powd Take by mouth once daily. 0 Active fish oil (9 sources) Start: 05-17-2016 omega-3 300 mg -dha 120 mg-epa 180 mg-fish oil 1,000 mg capsule 1 capsule once a day active Lissa Gaxiola AT [facility] Start: 04-24-2011 take 1 tablet by luis th once daily FISH OIL CAPS One tablet by mouth daily OMEGA-3 FATTY ACIDS CAPS [id number] Trish Angel Start: 04-24-2011 take 1 tablet by luis th once daily FISH OIL CAPS One tablet by mouth daily OMEGA-3 FATTY ACIDS CAPS [id number] Trish Angel iv contrast (will be provided with radiology [...] mg tablet Disc ontinued 0 .ROUTE .COMPLEX 90 3 September 15, 2024 12:11pm March 02, 2025 8:23am TAKE 1 TABLET DAILY Start: 01-15-2022 End: 07-11-2023 Lisinopril 5 mg tablet Disco ntinued 0 .ROUTE .COMPLEX 90 January 07, 2023 8:52am July 11, 2023 4:05pm TAKE 1 TABLET DAILY Start: 04-24-2011 End: 09-16-2015 take 1 tablet by mouth once daily LISINOPRIL 5 MG TABS One tablet by mouth daily LISINOPRIL [id number] Jacques Blair MD take 2 tablets by [facility] once daily lisinopril 20 mg tablet Take 2 tablet by mouth once a day active Lissa Gaxiola AT [facility] take 2 tablets by mo [facility] once daily lisinopril (ZESTRIL) 10 mg tablet [...] daily November 29, 2017 1:00am Multivitamin tablet (4 sources) Start: 11-29-2017 Multivitamin t ablet Active 1 {tbl} PO daily November 29, 2017 1:00am vitamin Start: 11-29-2017 Multivitamin t ablet Active 1 {tbl} PO daily November 29, 2017 1:00am MULTIVITAMINS ORAL CAPSULE (2 sources) Start: 05-17-2016 take 1 capsule by mouth once daily MULTIVITAMINS ORAL CAPSULE 1 capsule once a day active Lissa Gaxiola AT [facility] Aurora-3 Fatty Acids (Fish Oil Concentrate) 1,000 mg capsule (15 sources) Start: 11-29-2017 take 1 capsule by mouth once daily Aurora-3 Fatty Acids (Fish Oil Concentrate) 1,000 mg capsule Active 1000 MG PO daily November 29, 2017 12:49pm Start: 11-29-2017 take 1 capsule by mo uth once daily Aurora-3 Fatty Acids (Fish Oil Concentrate) 1,000 mg capsule Active 1000 mg PO daily November 29, 2017 1:00am heart health Start: 11-29-2017 take 1 capsule by mo uth once daily Aurora-3 Fatty Acids (Fish Oil Concentrate) 1,000 mg capsule Active 1000 mg PO daily November 29, 2017 1:00am Start: 11-29-2017 take 1 capsule by mo uth once daily Aurora-3 Fatty Acids (Fish Oil Concentrate) 1,000 mg capsule Active 1000 MG PO daily November 29, 2017 12:00am Start: 11-29-2017 take 1 capsule by mo uth once daily Aurora-3 Fatty Acids (Fish Oil Concentrate) 1,000 mg capsule Active 1000 MG PO daily November 29, 2017 1:00am Aurora-3 Fatty Acids-Vitamin E (FISH OIL) 1,000 mg cap (20 sources) take 1 capsule by mo ut once daily Aurora-3 Fatty Acids-Vitamin E (FISH OIL) 1,000 mg cap Take 1 capsule by mouth once daily. Active take 1 capsule by mouth once lulu ly Aurora-3 Fatty Acids-Vitamin E (FISH OIL) 1,000 mg cap Take 1 capsule by mouth once daily. 0 Active sodium bicarbonate 325 mg oral tablet (4 sources) Start: 04-24-2024 take 2 tablets by mouth three times daily as needed Sodium Bicarbonate 325 mg tablet Active 650 mg PO THREE TIMES A DAY as needed April 24, 2024 12:00am sodium chloride 1000 mg oral tablet (20 sources) Start: 03-20-2024 End: 06-18-2024 take 1 [...] tablet 3 02/20/2024 03/20/2024 Discontinued sodium chloride 1,000 mg soluble tablet Take 6-8 tablets a day active Lissa Gaxiola AT [facility] sodium chloride soluble tablet 1 g Take 2 g by mouth three times a day. Active Completed/Discontinued Medications Medication Drug Class(es) Dates Sig (Normalized) Sig (Original) azithromycin 250 mg oral tablet (20 sources) Macrolide Antimicrobial Start: 07-10-2021 End: 10-02-2021 take 2-5 tablets by mouth once daily Azithromycin 250 mg tablet Discontinued 0 PO .COMPLEX 6 0 July 10, 2021 12:00am October 02, 2021 [...] 1 PO daily on days 2-5 AZITHROMYCIN [id number] Rick Gaffney DO ciprofloxacin 250 mg oral tablet (7 sources) Quinolone Antimicrobial Start: 04-27-2016 End: 05-04-2016 take 1 tablet by mouth twice daily CIPROFLOXACIN HCL 250 MG TABS One tablet by mouth twice daily CIPROFLOXACIN HCL [id number] Rick Gaffney DO meloxicam 15 mg oral tablet (20 sources) Nonsteroidal Anti-inflammatory Drug Start: 09-16-2019 End: 03-17-2020 Meloxicam (Mobic) 15 mg tablet Discontinued 15 mg PO NEEDED as needed for Pain/Inflammation September 16, 2019 1:00am March 17, 2020 8:29am Start: 01-13-2016 End: 05-17-2017 MELOXICAM 15 MG TABS As need ed MELOXICAM [id number] Jacques Blair MD Start: 09-16-2015 End: 01-13-2016 take 1 tablet by mouth once daily as needed MELOXICAM 7.5 MG TABS 1 tablet by mouth daily as needed MELOXICAM [id number] Jacques Blair MD MULTIPLE VITAMIN (3 sources) Start: 04-24-2011 take 1 tablet by mouth once daily MULTIVITAMINS TABS One tablet by mouth daily MULTIPLE VITAMIN [id number] Trish Angel MULTIPLE VITAMIN (4 sources) Start: 04-24-2011 take 1 tablet by mouth once daily MULTIVITAMINS TABS One tablet by mouth daily MULTIPLE VITAMIN [id number] Trish Angel Start: 04-24-2011 take 1 tablet by luis th once daily MULTIVITAMINS TABS One tablet by mouth daily MULTIPLE VITAMIN [id number] Trish Angel nitroglycerin 0.4 mg sublingual tablet (14 sources) Nitrate Vasodilator Start: 04-24-2011 End: 05-17-2016 NITROSTAT 0.4 MG SUBL 1 tablet under tongue every 5 min up to 3 X NITROGLYCERIN [id number] Jacques Blair MD oseltamivir 75 mg oral capsule (8 sources) Neuraminidase Inhibitor Start: 12-29-2023 End: 01-04-2024 take 1 capsule by mouth every twelve hours Oseltamivir (Tamiflu) 75 mg capsule Discontinued 75 mg PO Q12H 10 5 0 December 29, 2023 1:00am January 02, 2024 [...] disease (20 sources) Atherosclerotic heart disease of [place] coronary artery without angina pectoris; Translations: [Angina pectoris] Onset: 1 Resolved: 5 05-14-2017 Chronic Comment on above: 01/11/2010 KNOTT to DOMINIC D, EDYTA insitu to the RCA and SVG to DX, [facility] to [facility] per Dr. Hernandez Coronary atherosclerosis and other heart disease (14 sources) Presence of aortocoronary bypass graft; Translations: [Aortocoronary bypass status] Onset: 0 04-24-2011 Episodic Disorders of lipid metabolism (20 sources) Hyperlipidemia; Translations: [Hyperlipidemia, unspecified] Onset: 1 04-24-2011 Chronic Essential hypertension (20 sources) Hypertensive disorder; Translations: [Essential hypertension] Onset: 1 04-24-2011 Chronic Immunizations and screening for infectious disease (15 sources) Contact with and (suspected) exposure to other viral communicable diseases; Translations: [Contact with or suspected exposure to other viral communicable disease] 07-10-2021 Episodic Malaise and fatigue (12 sources) Asthenia; Translations: [Weakness] 01-01-2024 Episodic Osteoarthritis [...] Translations: [SIADH (syndrome of inappropriate ADH production) ([facility])] Onset: 4 Chronic Other lower respiratory disease (1 source) Interstitial lung disease; Translations: [Interstitial pulmonary disease, unspecified] 03-30-2024 Chronic Other non-traumatic joint disorders (14 sources) Arthritis of acromioclavicular joint; Translations: [Unspecified osteoarthritis, unspecified site] Onset: 2 Resolved: 5 09-16-2015 Chronic Other non-traumatic joint disorders (4 sources) Pain in wrist; Translations: [Pain in right wrist] Onset: 5 08-10-2025 Episodic Other nutritional; endocrine; and metabolic disorders (2 sources) Personal history of other endocrine, nutritional and metabolic disease; Translations: [Personal history of other endocrine, metabolic, and immunity disorders] 01-01-2024 Episodic Other upper respiratory disease (4 sources) Acute bronchospasm; Translations: [Acute bronchospasm] 01-01-2024 Episodic Peripheral and visceral atherosclerosis (9 sources) Peripheral vascular disease, unspecified; Translations: [Peripheral arterial disease] Onset: 5 10-08-2024 Chronic Residual codes; unclassified (3 sources) H/O: asbestos exposure; Translations: [Contact with and (suspected) exposure to asbestos] 03-02-2025 Episodic Screening and history of mental health and substance abuse codes (1 source) Ex-smoker; Translations: [Personal history of nicotine dependence] 03-30-2024 Episodic Unclassified (4 sources) Long-term drug therapy; Translations: [Other mcc (current) drug therapy] Onset: 1 04-24-2011 Unclassified [...] 09-16-2015 Episodic Other aftercare (3 sources) Other mcc (current) drug therapy; Translations: [Other mcc (current) drug therapy] Onset: 04-24-2011 04-24-2011 Episodic [...] 05-23-2016 05-17-2016 Episodic Pleurisy; pneumothorax; pulmonary collapse (11 sources) Thickening of pleura; Translations: [Pleural plaque without asbestos] Onset: 08-13-2024 02-20-2024 Episodic Residual codes; unclassified (20 sources) History of cardiac catheterization; Translations: [Other specified postprocedural states] Onset: 03-30-2024 10-02-2021 Episodic Comment on above: 01/11/[address] Domo roper @ [facility]>CABG Unclassified (14 sources) Family history of ischemic [...] Test Name Value Interpretation Reference Range Facility Relevant diagnostic tests/la boratory data Narrativeon 08-10-2025 Fall risk assessment no [employer] Work Phone: MEDS REVIEW Documentation of current medications (procedure) Huan Xion[facility] Work Phone: [facility] REVIEWD Medications reviewed without changes Huan Xiong Work Phone: XRAY HX of the Right Hand on 06/02/2025 at [employer] Work Phone: Relevant diagnostic tests/la boratory data Narrativeon 06-02-2025 Fall risk assessment no [employer] Work Phone: MEDS REVIEW Done Huan Xiong Work Phone: [facility] REVIEWD Medications reviewed with changes Huan Xiong Work Phone: CNOVon 05-21-2025 CNOV Office Visit ([facility] ) MIGUELJORGE A ([id number]) 1960 M Date Time Provider Department 05/21/25 9:00 AM RUBIO GRIMES During your visit today, we recorded the following information about you: Temperature Pulse Blood pressure Weight 97.6 degrees 75/minute 130/73 67.1 kg Height 1.73 m Rubio Grimes MD 05/21/2025 10:00 AM Signed [facility] NEPHROLOGY AND HYPERTENSION [facility] SERVICE DATE: 05/21/2025 CHIEF COMPLAINT: Hyponatremia f/u HPI: 65-year-old male with medical history significant for Hypertension, [...] Continued on salt pills and fluid restriction. - 11/18/2024: Last seen by me. Was taking [id number] sodium chloride pills. Offered to increase the dose of Atenolol to 50 mg daily; he wants to discuss with the Creative Strategist. 05/20/2025 Jorge A reports a history of hyponatremia for at least 5 years, with sodium levels typically in the 130s. 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 He restricts his fluid intake to 48-60 oz daily. He notes that his sodium levels tend to drop when he is ill, leading to symptoms such as fatigue, anorexia, and weight loss. He recalls a recent episode of a cough, pharyngitis, and a "cold" a few weeks ago, which preceded a drop in sodium levels to 131 mEq/L. Jorge A has been on lisinopril for approximately 15 years and was recently prescribed amlodipine 2.5 mg daily by his silk printer due to elevated blood pressure readings. He also has a history of asbestosis and emphysema, managed by a blending technician. He underwent a CT scan of the lungs about 2 months ago, with results pending review by his blending technician. PAST MEDICAL HISTORY: ACTIVE PROBLEM LIST Screening for Colon Cancer Siadh (Syndrome of Inappropriate Adh Production) ([facility]) Hyponatremia Essential Hypertension Acute Bronchospasm Carotid Bruit Chronic Obstructive Pulmonary Disease (H[facility]) Atherosclerosis of Coronary Artery Bypass Graft History of Cardiac Catheterization History of Coronary Artery Bypass Surgery History of Endocrine Disorder Hyperlipidemia Influenza Osteoarthritis of Hand MEDICATIONS: sodium chloride soluble tablet 1 g Take 2 g by mouth three times a day. lisinopril (ZESTRIL) 10 mg tablet Take 20 mg by mouth once daily. atorvastatin (LIPITOR) 10 mg tablet Take 10 mg by mouth once daily. atenolol (TENORMIN) 25 mg tablet Take 25 mg by mouth once daily. coenzyme Q10 (H2Q COQ10) 200 mg/gram powd Take by mouth once daily. aspirin, enteric coated (ASPIRIN, ENTERIC COATED) 81 mg EC tablet Take 81 mg by mouth once daily. Aurora-3 Fatty Acids-Vitamin E (FISH OIL) 1,000 mg [...] easy bruising, easy bleeding PHYSICAL EXAM: BP 130/73 (BP Site: Right Arm, BP Position: Sitting, BP Cuff Size: Regular Adult) Pulse 75 Temp 36.4 ?C (97.6 ?F) Ht 173 cm (5' 8.11") Wt 67.1 kg (147 lb 14.9 oz) SpO2 97% BMI 22.42 kg/m? BP - standardized method Pulse 1 BP #1: 144/78 2 BP #2 : 120/69 3 BP #3 : 126/72 Average Orthostatic vitals Supine Sitting Standing BP cuff location BP cuff size Comments for BP values First BP (right) First BP (left) General: Awake, not in distress. HENT: Normocephalic. Eyes: PERRL, Anicteric Neck:Trachea midline, No JVD Respiratory: Clear bilaterally. CV: RRR, No murmurs, rubs, or gallops Abdomen: Soft, non-distended. Extremities: Pedal edema absent. Skin: No rashes. Neurologic: Alert and oriented x 3, no focal deficits. Psychiatric: Cooperative, normal mood/affect. Last 14 BP Last 14 Encounter BP Readings: Date: BP: 08/13/2024 173/87 05/21/2024 146/78 04/07/2024 129/75 03/30/2024 146/66 02/19/2024 131/79 04/13/2015 (more content not included)... Normal [facility] Renal function 2000 panelon 05-13-2025 Albumin [Mass/Vol] 4.3 g/dL Normal 3.9-4.9 [facility] Comment on above: Order Comment: Speci men Type: BLOOD SPECIMEN Ordering Facility: [facility] Address: [address] [place] [address] Performed By: #### 2 4362-6 #### [facility] CLIA [id number] [address] [place] [address] [place] Anion gap [Moles/Vol] 14 mmol/L Normal 8-15 [facility] Comment on above: Order Comment: Speci men Type: BLOOD SPECIMEN Ordering Facility: [facility] Address: [address] [place] [address] Performed By: #### 2 4362-6 #### [facility] CLIA [id number] [address] [place] [address] [place] Calcium [Mass/Vol] 9.4 mg/dL Normal 8.5-10.2 [facility] Comment on above: Order Comment: Speci men Type: BLOOD SPECIMEN Ordering Facility: [facility] Address: [address] [place] [address] Performed By: #### 2 4362-6 #### [facility] CLIA [id number] [address] [place] [address] [place] Chloride [Moles/Vol] 94 mmol/L Low 98-107 [facility] Comment on above: Order Comment: Speci men Type: BLOOD SPECIMEN Ordering Facility: [facility] Address: [address] [place] [address] Performed By: #### 2 4362-6 #### [facility] CLIA [id number] [address] [place] [address] [place] CO2 [Moles/Vol] 22 mmol/L Normal 22-30 [facility] Comment on above: Order Comment: Speci men Type: BLOOD SPECIMEN Ordering Facility: [facility] Address: [address] [place] [address] Performed By: #### 2 4362-6 #### [id number] [address] [place] [address] [place] Creatinine [Mass/Vol] 0.71 mg/dL Low 0.73-1.22 [facility] Comment on above: Order Comment: Speci men Type: BLOOD SPECIMEN Ordering Facility: [facility] Address: [address] [place] [address] Performed By: #### 2 4362-6 #### [facility] CLIA [id number] [address] [place] [address] [place] eGFRcr SerPlBld CKD-EPI 2020 101 mL/min/1.73m??? Normal >=60 [facility] Comment on above: Order Comment: Speci men Type: BLOOD SPECIMEN Ordering Facility: [facility] Address: [address] [place] [address] Result Comment: Kitty mated Glomerular Filtration Rate [...] actual GFR. Performed By: #### 2 4362-6 #### [facility] [id number] [address] [place] [address] [place] Glucose [Mass/Vol] 88 mg/dL Normal 74-99 [facility] Comment on above: Order Comment: Gm arroyo Type: BLOOD SPECIMEN Ordering Facility: [facility] Address: [address] [place] [address] Result Comment: The [place] Diabetes Association (ADA) provides guidance for cutoff [...] Standards of Medical Care in Diabetes 2016, [place] Diabetes Association. Diabetes Care. 2016.39(Suppl 1). Performed By: #### 2 4362-6 #### [facility] [id number] [address] [place] [address] [place] Phosphate [Mass/Vol] 2.6 mg/dL Low 2.7-4.8 [facility] Comment on above: Order Comment: Gm arroyo Type: BLOOD SPECIMEN Ordering Facility: [facility] Address: [address] [place] [address] Performed By: #### 2 4362-6 #### [facility] [id number] [address] [place] [address] [place] Potassium [Moles/Vol] 4.0 mmol/L Normal 3.7-5.1 [facility] Comment on above: Order Comment: Gm arroyo Type: BLOOD SPECIMEN Ordering Facility: [facility] Address: [address] [id number] Performed By: #### 2 4362-6 #### [facility] CLIA [id number] [address] [place] [address] [place] Sodium [Moles/Vol] 130 mmol/L Low 136-144 [facility] Comment on above: Order Comment: Gm arroyo Type: BLOOD SPECIMEN Ordering Facility: [facility] Address: [facility] [place] [address] Performed By: #### 2 4362-6 #### [facility] CLIA [id number] [address] [place] [address] [place] Urea nitrogen [Mass/Vol] 11 mg/dL Normal 9-24 [facility] Comment on above: Order Comment: Gm arroyo Type: BLOOD SPECIMEN Ordering Facility: [facility] Address: [facility] [place] [address] Performed By: #### 2 4362-6 #### [facility] CLIA [id number] [address] [place] [address] [place] Sodium Levelon 05-09-2025 Sodium [Moles/Vol] 126 mmol/L Low 133-145 [facility] Comment on above: Performed By: #### L 501.5300 #### [facility] [address] [facility] [id number] Sodium levelOrdered By: Jeferson Thomas on 05-09-2025 Sodium [Moles/Vol] 126 mmol/L Low 133-145 [facility] CNPSue 03-30-2025 CNPN Telephone ([facility]) JORGE A RIVERA ([id number]) 1960 M Date Time Provider Department 03/30/25 RAMON SAMUEL [facility] During your visit today, we recorded the following information about you: Maida Phillips MA 03/30/2025 10:10 AM Signed Fax received from [facility] for LCS Dr. Thomas CT Chest Lung LCS. Placed in Dr. Samuel's office to be viewed. Allergies As of Date: 03/30/2025 (No Known Allergies) Date Reviewed: 11/18/2024 Reviewed by: Marj Dove MA - Fully [...] 81 mg by mouth once daily. - Aurora-3 Fatty Acids-Vitamin E (FISH OIL) 1,000 mg [...] Status:Closed by MAIDA PHILLIPS on 03/30/25 Normal [facility] Low Dose CT Lung Screeningon 03-25-[address] Lung Screening [facility] Imaging Services [address] [place], [place] [address] Low Dose CT Lung Screening MR#: [id number] Acct: [id number] Name: JORGE A RIVERA Rep #: [id number] : 1960 M 64 From: Rick Centeno MD PCP: Dr. Jeferson Thomas MD Status: REG CLI Study: Low Dose CT Lung Screening Date of Exam: 03/25 Exam# [id number] Ordering Dr: Jeferson Thomas MD EXAM: CT Chest, Lung Cancer Screening [...] in 12 months is recommended. Reading Location: [facility] CC: Dr. Jeferson Thomas MD Scooping Machine Tender: Signed Normal [facility] Cardiovascular stress test r eportOrdered By: Ángel Nichole on 03-17-2025 Study report [facility] [address] [place] [address] MR#: [id number] Acct: [id number] Name: JORGE A RIVERA Rep #: [id number] : 1960 64 From: Ángel Nichole MD Primary Care: Dr. Jeferson Thomas MD Status : REG CLI Referring Dr: [...] _ Ángel Nichole MD CC: Dr. Jeferson Thomas MD; BIANCA Gibbs ~ Date Dictated: 03/17/251029 Date Transcribed: 03/17/251029 Scooping Machine Tender: CO Signed [facility] Work Phone: Stress Reporton 03-17-2025 Stress Report [facility] Services [address] [place] [address] MR#: [id number] Acct: [id number] Name: JORGE A RIVERA Rep #: [id number] : 1960 64 From: Ángel Nichole MD Primary Care: Dr. Jeferson Thomas MD Status: REG CLI Referring Dr: Karla [...] workload Preserved ejection fraction. 03/17/25 1039 Date Ángel Nichole MD CC: Dr. Jeferson Thomas MD; BIANCA Gibbs Date Dictated: 03/17/25 1030 Date Transcribed: 03/17/251029 Scooping Machine Tender: CO Signed Normal [facility] Cardiology Visit Reporton Cardiology Visit Report [facility] 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 Normal [facility] Chest PA and Lateralon 02-23 Chest PA and Lateral [facility] Imaging Services [address] [place] [address] Chest PA and Lateral MR#: [id number] Acct: [id number] Name: JORGE A RIVERA Rep #: [id number] : 1960 M 64 From: Rick Bautista MD PCP: Dr. Jeferson Thomas MD Status: DEP AMB Study: Chest PA and Lateral Date of Exam: 02/23/25 Exam# [id number] Ordering Dr: Jeferson Thomas MD PROCEDURE: CHEST PA AND LATERAL (RADCXR), [...] within the past 15 years. Reading Location: [facility] CC: Dr. Jeferson Thomas MD Scooping Machine Tender: Signed Normal [facility] Anion gap in Serum or Plasma Ordered By: Jeferson Thomas on 02-19-2025 Anion gap [Moles/Vol] 10 mmol/L - [facility] BUN/creatinine ratioOrdered By: Jeferson Thomas on 02-19-2025 Urea nitrogen/Creatinine [Mass ratio] 18.6 mg/mg - [facility] Basic Metabolic Profile (BMP )on 02-19-2025 BUN/CRE 18.6 RATIO Normal - [facility] Comment on above: Performed By: #### L 500.2500 #### [facility] [address] [place], [address] Calcium [Mass/Vol] 9.1 mg/dL Normal 7.6-11.0 [facility] Comment on above: Performed By: #### L 500.2500 #### [facility] [address] [place], [address] Chloride [Moles/Vol] 93 mmol/L Low 98-108 [facility] Comment on above: Performed By: #### L 500.2500 #### [facility] [address] [place], [address] CO2 [Moles/Vol] 24.8 mmol/L Normal 21.0-32.0 [facility] Comment on above: Performed By: #### L 500.2500 #### [facility] [address] [place], [address] Creatinine [Mass/Vol] 0.78 mg/dL Normal 0.70-1.20 [facility] Comment on above: Performed By: #### L 500.2500 #### [facility] [address] [place], [address] GAP 10 Normal 5-15 [facility] Comment on above: Performed By: #### L 500.2500 #### [facility] [address] [place], [address] GFR/1.73 sq M.predicted among non-blacks MDRD (S/P/Bld) [Vol rate/Area] 99 mL/min/{1.73_m2} Normal >60 [facility] Comment on above: Result Comment: mL/m in/1.73m2 CKD-EPI Creatinine Equation (2020) Performed By: #### L 500.2500 #### [facility] [address] [place], [address] Glucose [Mass/Vol] 139 mg/dL High 70-99 [facility] Comment on above: Performed By: #### L 500.2500 #### [facility] [address] [place], [address] Potassium [Moles/Vol] 4.2 mmol/L Normal 3.3-5.1 [facility] Comment on above: Performed By: #### L 500.2500 #### [facility] [address] [place], [address] Sodium [Moles/Vol] 128 mmol/L Low 133-145 [facility] Comment on above: Performed By: #### L 500.2500 #### [facility] [address] [place], [address] Urea nitrogen [Mass/Vol] 15 mg/dL Normal 4-19 [facility] Comment on above: Performed By: #### L 500.2500 #### [facility] [address] [place], [address] Carbon dioxide, total [Moles /volume] in Central venous bloodOrdered By: Jeferson Thomas on 02-19-2025 CO2 [Moles/Vol] 24.8 mmol/L 21.0-32.0 [facility] Chloride assayOrdered By: Alonso Thomas on 02-19-2025 Chloride [Moles/Vol] 93 mmol/L Low 98-108 [facility] Glomerular filtration rate ( GFR) estimation/1.73 sq m using serum, plasma, or whole bOrdered By: Jeferson Thomas on 02-19-2025 GFR/1.73 sq M.predicted among non-blacks MDRD (S/P/Bld) [Vol rate/Area] 99 mL/min/{1.73_m2} >60 [facility] Comment on above: mL/min/1.73m2 CKD-EP I Creatinine Equation (2020) Potassium measurement (mass/ volume)Ordered By: Jeferson Thomas on 02-19-2025 Potassium (Unsp spec) [Mass/Vol] 4.2 mmol/L 3.3-5.1 [facility] Serum creatinine measurement (mass/volume)Ordered By: Jeferson Thomas on 02-19-2025 Creatinine [Mass/Vol] 0.78 mg/dL 0.70-1.20 [facility] Serum glucose measurement (m ass/volume)Ordered By: Jeferson Thomas on 02-19-2025 Glucose [Mass/Vol] 139 mg/dL High 70-99 [facility] Serum or plasma calcium adelso urement (mass/volume)Ordered By: Jeferson Thomas on 02-19-2025 Calcium [Mass/Vol] 9.1 mg/dL 7.6-11.0 [facility] Serum or plasma urea nitroge n measurement (mass/volume)Ordered By: Jeferson Thomas on 02-19-2025 Urea nitrogen [Mass/Vol] 15 mg/dL 4-19 [facility] Sodium levelOrdered By: Jeferson Thomas on 02-19-2025 Sodium [Moles/Vol] 128 mmol/L Low 133-145 [facility] Renal function 2000 panelon 02-10-2025 Albumin [Mass/Vol] 4.4 g/dL Normal 3.9-4.9 [facility] Comment on above: Order Comment: Speci men Type: BLOOD SPECIMENOrdering Facility: [facility] Address: [address] [id number] Performed By: #### 2 4362-6 ####[facility] [id number] [place] [address] [place] Anion gap [Moles/Vol] 8 mmol/L Normal 8-15 [facility] Comment on above: Order Comment: Speci men Type: BLOOD SPECIMENOrdering Facility: [facility] Address: [address] [place] [address] Performed By: #### 2 4362-6 ####[facility] [id number] [place] [address] [place] Calcium [Mass/Vol] 9.6 mg/dL Normal 8.5-10.2 [facility] Comment on above: Order Comment: Speci men Type: BLOOD SPECIMENOrdering Facility: [facility] Address: [address] [place] [address] Performed By: #### 2 4362-6 ####[facility]ITALNCLIA [id number] [place] [address] [place] Chloride [Moles/Vol] 96 mmol/L Low 98-107 [facility] Comment on above: Order Comment: Speci men Type: BLOOD SPECIMENOrdering Facility: [facility] Address: [address] [place] [address] Performed By: #### 2 4362-6 ####[facility] [id number] [place] [address] [place] CO2 [Moles/Vol] 27 mmol/L Normal 22-30 [facility] Comment on above: Order Comment: Speci men Type: BLOOD SPECIMENOrdering Facility: [facility] Address: [address] [place] [address] Performed By: #### 2 4362-6 ####[facility]ITAL[facility]CLIA [id number] [place] [address] [place] Creatinine [Mass/Vol] 0.71 mg/dL Low 0.73-1.22 [facility] Comment on above: Order Comment: Speci men Type: BLOOD SPECIMENOrdering Facility: [facility] Address: [address] [place] [address] Performed By: #### 2 4362-6 ####[facility]ITALLIA [id number] [place] [address] [facility] [place] Creatinine and Glomerular filtration rate.predicted panel (S/P/Bld) 102 mL/min/1.73m??? Normal >=60 [facility] Comment on above: Order Comment: Speci men Type: BLOOD SPECIMENOrdering Facility: [facility] Address: [address] [place] [address] Result Comment: Kitty mated Glomerular Filtration Rate [...] actual GFR. Performed By: #### 2 4362-6 ####[facility]ITALTOWNCLIA [id number] [place] [address] [place] Glucose [Mass/Vol] 77 mg/dL Normal 74-99 [facility] Comment on above: Order Comment: Gm arroyo Type: BLOOD SPECIMENOrdering Facility: [facility] Address: [address] [place] [address] Result Comment: The [place] Diabetes Association (ADA) provides guidance for cutoff [...] Standards of Medical Care in Diabetes 2016, [place] Diabetes Association. Diabetes Care. 2016.39(Suppl 1). Performed By: #### 2 4362-6 ####[facility]ITALWNCLIA [id number] [place] [address] [place] Phosphate [Mass/Vol] 4.0 mg/dL Normal 2.7-4.8 [facility] Comment on above: Order Comment: Gm arroyo Type: BLOOD SPECIMENOrdering Facility: [facility] Address: [address] [id number] Performed By: #### 2 4362-6 ####[facility]PITALWNCLIA [id number] [place] [address] [place] Potassium [Moles/Vol] 4.5 mmol/L Normal 3.7-5.1 [facility] Comment on above: Order Comment: Speci men Type: BLOOD SPECIMENOrdering Facility: [facility] Address: [facility] [place] [address] Performed By: #### 2 4362-6 ####[facility] MILLTOWNCLIA [id number] [place] [address] [place] Sodium [Moles/Vol] 131 mmol/L Low 136-144 [facility] Comment on above: Order Comment: Speci men Type: BLOOD SPECIMENOrdering Facility: [facility] Address: [facility] [place] [address] Performed By: #### 2 4362-6 ####[facility]ITALNCLIA [id number] [place] [address] [place] Urea nitrogen [Mass/Vol] 16 mg/dL Normal 9-24 [facility] Comment on above: Order Comment: Speci men Type: BLOOD SPECIMENOrdering Facility: [facility] Address: [facility] [place] [address] Performed By: #### 2 4362-6 ####[facility]ITALNCLIA [id number] [place] [address] [place] Anion gap in Serum or Plasma Ordered By: Jeferson Thomas on 12-31-2024 Anion gap [Moles/Vol] 10 mmol/L 5-15 [facility] BUN/creatinine ratioOrdered By: Jeferson Thomas on 12-31-2024 Urea nitrogen/Creatinine [Mass ratio] 18.8 mg/mg 10-20 [facility] Bilirubin, totalOrdered By: Jeferson Thomas on 12-31-2024 Bilirubin [Mass/Vol] 0.68 mg/dL 0.00-1.30 [facility] Calculated very low density lipoprotein (VLDL) cholesterol measurementOrdered By: Jeferson Thomas on 12-31-2024 Calculated very low density lipoprotein (VLDL) cholesterol measurement 11 mg/dL 5-40 [facility] VLDL Cholesterol 11 mg/dL 5-40 [facility] Carbon dioxide, total [Moles /volume] in Central venous bloodOrdered By: Jeferson Thomas on 12-31-2024 CO2 [Moles/Vol] 26.0 mmol/L 21.0-32.0 [facility] Chloride assayOrdered By: Alonso Thomas on 12-31-2024 Chloride [Moles/Vol] 96 mmol/L Low 98-108 [facility] Comprehensive Metabolic Prof ilon 12-31-2024 Albumin [Mass/Vol] 4.0 g/dL Normal 3.4-4.8 [facility] Comment on above: Performed By: #### L 500.4050, L500.4100 #### [facility] [address] [place], [address] Albumin/Globulin [Mass ratio] 1.4 {ratio} Normal 0.9-2.4 [facility] Comment on above: Performed By: #### L 500.4050, L500.4100 #### [facility] [address] [place], [address] ALK PHOS 78 U/L Normal 40-129 [facility] Comment on above: Performed By: #### L 500.4050, L500.4100 #### [facility] [address] [place], [address] ALT [Catalytic activity/Vol] 18 U/L Normal <=46 [facility] Comment on above: Performed By: #### L 500.4050, L500.4100 #### [facility] [address] [place], [address] AST [Catalytic activity/Vol] 23 U/L Normal <=37 [facility] Comment on above: Performed By: #### L 500.4050, L500.4100 #### [facility] [address] [place], [address] Bilirubin [Mass/Vol] 0.68 mg/dL Normal 0.00-1.30 [facility] Comment on above: Performed By: #### L 500.4050, L500.4100 #### [facility] [address] [place], [address] BUN/CRE 18.8 RATIO Normal 10-20 [facility] Comment on above: Performed By: #### L 500.4050, L500.4100 #### [facility] [address] [place], [address] Calcium [Mass/Vol] 9.2 mg/dL Normal 7.6-11.0 [facility] Comment on above: Performed By: #### L 500.4050, L500.4100 #### [facility] [address] [place], [address] Chloride [Moles/Vol] 96 mmol/L Low 98-108 [facility] Comment on above: Performed By: #### L 500.4050, L500.4100 #### [facility] [address] [place], [address] CO2 [Moles/Vol] 26.0 mmol/L Normal 21.0-32.0 [facility] Comment on above: Performed By: #### L 500.4050, L500.4100 #### [facility] [address] [place], [address] Creatinine [Mass/Vol] 0.83 mg/dL Normal 0.70-1.20 [facility] Comment on above: Performed By: #### L 500.4050, L500.4100 #### [facility] [address] [place], [address] GAP 10 Normal 5-15 [facility] Comment on above: Performed By: #### L 500.4050, L500.4100 #### [facility] [address] [place], [address] GFR/1.73 sq M.predicted among non-blacks MDRD (S/P/Bld) [Vol rate/Area] 97 mL/min/{1.73_m2} Normal >60 [facility] Comment on above: Result Comment: mL/m in/1.73m2 CKD-EPI Creatinine Equation (2020) Performed By: #### L 500.4050, L500.4100 #### [facility] [address] [place], [address] Globulin (S) [Mass/Vol] 2.9 g/dL Normal 2.2-4.2 [facility] Comment on above: Performed By: #### L 500.4050, L500.4100 #### [facility] [address] [place], [address] Glucose [Mass/Vol] 84 mg/dL Normal 70-99 [facility] Comment on above: Performed By: #### L 500.4050, L500.4100 #### [facility] [address] [place], [address] Potassium [Moles/Vol] 4.5 mmol/L Normal 3.3-5.1 [facility] Comment on above: Performed By: #### L 500.4050, L500.4100 #### [facility] [address] [place], [address] Sodium [Moles/Vol] 132 mmol/L Low 133-145 [facility] Comment on above: Performed By: #### L 500.4050, L500.4100 #### [facility] [address] [place], [address] T PROT 6.9 g/dL Normal 5.9-8.4 [facility] Comment on above: Performed By: #### L 500.4050, L500.4100 #### [facility] [address] [place], [address] Urea nitrogen [Mass/Vol] 16 mg/dL Normal 4-19 [facility] Comment on above: Performed By: #### L 500.4050, L500.4100 #### [facility] [address] [place], [address] GFR/1.73 sq M.predicted geo g non-blacks MDRD (S/P/Bld) [Vol rate/Area]Ordered By: Jeferson Thomas on 12-31-2024 Estimated GFR (MDRD) Non-Af Amer 97 >60 [facility] Comment on above: mL/min/1.73m2 CKD-EP I Creatinine Equation (2020) Glomerular filtration rate ( GFR) estimation/1.73 sq m using serum, plasma, or whole bOrdered By: Jeferson Thomas on 12-31-2024 GFR/1.73 sq M.predicted among non-blacks MDRD (S/P/Bld) [Vol rate/Area] 97 mL/min/{1.73_m2} >60 [facility] Comment on above: mL/min/1.73m2 CKD-EP I Creatinine Equation (2020) LDL calc ser/plasOrdered By: Jeferson Thomas on 12-31-2024 Cholesterol in LDL [Mass/Vol] 85 mg/dL [facility] Comment on above: Ckjvlqyfov=398-059 m g/dL & Higher Moxx=009 mg/dL or greater LDL Cholesterol, Calculated 85 mg/dL [facility] Comment on above: Lhzrwbqpfv=941-543 m g/dL & Higher Niix=890 mg/dL or greater Laboratory - Chemistry and C hemistry - challengeOrdered By: Jeferson Thomas on 12-31-2024 AST [Catalytic activity/Vol] 23 U/L <38 [facility] Lipid Profileon 12-31-2024 CHOL:HDL 2.54 Normal [facility] Comment on above: Performed By: #### L 500.4050, L500.4100 ####[facility] [address] [place] [place], [address] Cholesterol [Mass/Vol] 159 mg/dL Normal <=200 [facility] Comment on above: Result Comment: Chol esterol level, Desirable <200 mg/dL Borderline high cholesterol 200-239 mg/dL High cholesterol >=240 mg/dL Recommendations of the NCEP Adult Treatment Panel for the following risk-cutoff thresholds for the [place] population. Performed By: #### L 500.4050, L500.4100 ####[facility] [address] [place], [address] Cholesterol in HDL [Mass/Vol] 63 mg/dL Normal [facility] Comment on above: Result Comment: Sonal onal Cholesterol Education Program (NCEP) guidelines: <40 mg/dL: Low HDL-cholesterol (major risk factor for CHD) >= 60 mg/dL: High HDL-cholesterol (negative risk factor for CHD) HDL-cholesterol is affected by a number of factors, e.g. smoking, exercise, hormones, sex and age. Performed By: #### L 500.4050, L500.4100 ####[facility] [address] [place], [address] Cholesterol in LDL [Mass/Vol] 85 mg/dL Normal [facility] Comment on above: Result Comment: Bord njfnlo=343-592 mg/dL Higher Boiz=494 mg/dL or greater Performed By: #### L 500.4050, L500.4100 ####[facility] [address] [place], [address] Cholesterol in VLDL [Mass/Vol] 11 mg/dL Normal 5-40 [facility] Comment on above: Performed By: #### L 500.4050, L500.4100 ####[facility] [address] [place], [address] Triglyceride [Mass/Vol] 55 mg/dL Normal [facility] Comment on above: Result Comment: The drugs N-Acetylcysteine and Metamizole may falsely depress this assay. Normal range: <150 mg/dL Borderline High: 150-199 mg/dL High: 200-499 mg/dL Very High: >500 mg/dL Performed By: #### L 500.4050, L500.4100 ####[facility] [address] [place], [address] Potassium (Unsp spec) [Mass/ Vol]Ordered By: Jeferson Thomas on 12-31-2024 Potassium [Moles/Vol] 4.5 mmol/L 3.3-5.1 [facility] Potassium measurement (mass/ volume)Ordered By: Jeferson Thomas on 12-31-2024 Potassium (Unsp spec) [Mass/Vol] 4.5 mmol/L 3.3-5.1 [facility] Screening total cholesterol/ high density lipoprotein (HDL) cholesterol ratioOrdered By: Jeferson Thomas on 12-31-2024 Cholesterol.total/Chol esterol in HDL [Mass ratio] 2.54 {ratio} [facility] Serum creatinine measurement (mass/volume)Ordered By: Jeferson Thomas on 12-31-2024 Creatinine [Mass/Vol] 0.83 mg/dL 0.70-1.20 [facility] Serum globulin measurementOr dered By: Jeferson Thomas on 12-31-2024 Globulin (S) [Mass/Vol] 2.9 g/dL 2.2-4.2 [facility] Serum glucose measurement (m ass/volume)Ordered By: Jeferson Thomas on 12-31-2024 Glucose [Mass/Vol] 84 mg/dL 70-99 [facility] Serum or plasma alanine real otransferase (ALT) measurementOrdered By: Jeferson Thomas on 12-31-2024 ALT [Catalytic activity/Vol] 18 U/L <47 [facility] Serum or plasma albumin adelso urement (mass/volume)Ordered By: Jeferson Thomas on 12-31-2024 Albumin [Mass/Vol] 4.0 g/dL 3.4-4.8 [facility] Serum or plasma albumin/glob ulin mass ratioOrdered By: Jeferson Thomas on 12-31-2024 Albumin/Globulin [Mass ratio] 1.4 {ratio} 0.9-2.4 [facility] Serum or plasma alkaline jo sphatase measurementOrdered By: Jeferson Thomas on 12-31-2024 ALP [Catalytic activity/Vol] 78 U/L 40-129 [facility] Serum or plasma calcium adelso urement (mass/volume)Ordered By: Jeferson Thomas on 12-31-2024 Calcium [Mass/Vol] 9.2 mg/dL 7.6-11.0 [facility] Serum or plasma cholesterol in HDL measurement (mass/volume)Ordered By: Jeferson Thomas on 12-31-2024 Cholesterol in HDL [Mass/Vol] 63 mg/dL >40 [facility] Comment on above: National Cholesterol Education Program (NCEP) guidelines:<40 mg/dL: Low HDL-cholesterol (major risk factor for CHD)>= 60 mg/dL: High HDL-cholesterol (negative risk factor for CHD)HDL-cholesterol is affected by a number of factors, e.g. smoking, exercise, hormones, sex and age. Serum or plasma cholesterol measurement (mass/volume)Ordered By: Jeferson Thomas on 12-31-2024 Cholesterol [Mass/Vol] 159 mg/dL <201 [facility] Comment on above: Cholesterol level, D esirable <200 mg/dLBorderline high cholesterol 200-239 mg/dLHigh cholesterol >=240 mg/dLRecommendations of the NCEP Adult Treatment Panel for the following risk-cutoff thresholds for the [place] population. Serum or plasma urea nitroge n measurement (mass/volume)Ordered By: Jeferson Thomas on 12-31-2024 Urea nitrogen [Mass/Vol] 16 mg/dL 4-19 [facility] Sodium levelOrdered By: Jeferson Thomas on 12-31-2024 Sodium [Moles/Vol] 132 mmol/L Low 133-145 [facility] Total proteinOrdered By: Filipe Thomas on 12-31-2024 Protein [Mass/Vol] 6.9 g/dL 5.9-8.4 [facility] Triglycerides measurementOrd ered By: Jeferson Thomas on 12-31-2024 Triglyceride [Mass/Vol] 55 mg/dL <199 [facility] Comment on above: The drugs N-Acetylcy steine and Metamizole may falsely depress this assay. Normal range: <150 mg/dLBorderline High: 150-199 mg/dLHigh: 200-499 mg/dLVery High: >500 mg/dL Basic Metabolic Profile (BMP )on 12-14-2024 BUN/CRE 22.2 RATIO High 10-20 [facility] Comment on above: Performed By: #### L 500.2500 #### [facility] [address] [place], [address] CA,Total 8.8 mg/dL Normal 8.5-10.1 [facility] Comment on above: Performed By: #### L 500.2500 #### [facility] [address] [place], [address] Chloride [Moles/Vol] 95 mmol/L Low 98-107 [facility] Comment on above: Performed By: #### L 500.2500 #### [facility] [address] [place], [address] CO2 [Moles/Vol] 28.0 mmol/L Normal 21.0-32.0 [facility] Comment on above: Performed By: #### L 500.2500 #### [facility] [address] [place], [address] Creatinine [Mass/Vol] 0.81 mg/dL Normal 0.70-1.30 [facility] Comment on above: Result Comment: The validity of the calculated GFR GFRAA in patients over 70 years has not been determined. Clinical correlation is essential. Performed By: #### L 500.2500 #### [facility] [address] [place], [address] EST GFR - AA 123 mL/min Normal >60 [facility] Comment on above: Result Comment: Afri can [place]ian GFR Calc Performed By: #### L 500.2500 #### [facility] [address] [place], [address] GAP 7 Normal 5-15 [facility] Comment on above: Performed By: #### L 500.2500 #### [facility] [address] [place], [address] GFR/1.73 sq M.predicted among non-blacks MDRD (S/P/Bld) [Vol rate/Area] 101 mL/min/{1.73_m2} Normal >60 [facility] Comment on above: Result Comment: Non- GFR Calc Performed By: #### L 500.2500 #### [facility] [address] [place], [address] Glucose [Mass/Vol] 114 mg/dL High 74-106 [facility] Comment on above: Result Comment: Fast ing Glucose result from 100 to 125 mg/dL suggests IMPAIRED HOMEOSTASIS per A.D.A. criteria. Performed By: #### L 500.2500 #### [facility] [address] [place], [address] Potassium [Moles/Vol] 3.7 mmol/L Normal 3.5-5.1 [facility] Comment on above: Performed By: #### L 500.2500 #### [facility] [address] [place], [address] Sodium [Moles/Vol] 129 mmol/L Low 136-145 [facility] Comment on above: Performed By: #### L 500.2500 #### [facility] [address] [place], [address] Urea nitrogen [Mass/Vol] 18 mg/dL Normal 7-18 [facility] Comment on above: Performed By: #### L 500.2500 #### [facility] [address] [place], [address] Blood urea nitrogen (BUN)/cr eatinine ratioOrdered By: Jeferson Thomas on 12-14-2024 Urea nitrogen/Creatinine [Mass ratio] 22.2 mg/mg High 10-20 [facility] Carbon dioxide measurementOr dered By: Jeferson Thomas on 12-14-2024 CO2 [Moles/Vol] 28.0 mmol/L 21.0-32.0 [facility] Chloride measurementOrdered By: Jeferson Thomas on 12-14-2024 Chloride [Moles/Vol] 95 mmol/L Low 98-107 [facility] Estimated glomerular filtrat ion rate (GFR) AmericanOrdered By: Jeferson Thomas on 12-14-2024 Estimated GFR (MDRD) Amer 123 mL/min >60 [facility] Comment on above: GFR Calc Glomerular filtration rate ( GFR) estimationOrdered By: Jeferson Thomas on 12-14-2024 Estimated GFR (MDRD) Non-Af Amer 101 mL/min >60 [facility] Comment on above: Non- GFR Calc GFR/1.73 sq M.predicted among non-blacks MDRD (S/P/Bld) [Vol rate/Area] 101 mL/min/{1.73_m2} >60 [facility] Comment on above: Non- GFR Calc Glucose measurementOrdered B y: Jeferson Thomas on 12-14-2024 Glucose [Mass/Vol] 114 mg/dL High 74-106 [facility] Comment on above: Fasting Glucose resu lt from 100 to 125 mg/dL suggests IMPAIRED HOMEOSTASIS per A.D.A. criteria. Potassium measurementOrdered By: Jeferson Thomas on 12-14-2024 Potassium [Moles/Vol] 3.7 mmol/L 3.5-5.1 [facility] Serum anion gap measurementO rdered By: Jeferson Thomas on 12-14-2024 Anion gap [Moles/Vol] 7 mmol/L 5-15 [facility] Serum or plasma calcium adelso urement (mass/volume)Ordered By: Jeferson Thomas on 12-14-2024 Calcium [Mass/Vol] 8.8 mg/dL 8.5-10.1 [facility] Serum or plasma creatinine m easurement (mass/volume)Ordered By: Jeferson Thomas on 12-14-2024 Creatinine [Mass/Vol] 0.81 mg/dL 0.70-1.30 [facility] Comment on above: The validity of the calculated GFR & GFRAA in patients over 70 years has not been determined. Clinical correlation is essential. Serum or plasma urea nitroge n measurement (mass/volume)Ordered By: Jeferson Thomas on 12-14-2024 Urea nitrogen [Mass/Vol] 18 mg/dL 7-18 [facility] Sodium levelOrdered By: Jeferson Erlinda on 12-14-2024 Sodium [Moles/Vol] 129 mmol/L Low 136-145 [facility] Albumin to globulin ratioOrd ered By: Jeferson Erlinda on 12-11-2024 Albumin/Globulin [Mass ratio] 1.1 {ratio} 0.9-2.4 [facility] Basic Metabolic Profile (BMP )on 12-11-2024 BUN/CRE 14.4 RATIO Normal 10-20 [facility] Comment on above: Performed By: #### L 500.2500 #### [facility] [address] [facility] [address] [place],Total 8.8 mg/dL Normal 8.5-10.1 [facility] Comment on above: Performed By: #### L 500.2500 #### [facility] [address] [place], [address] Chloride [Moles/Vol] 86 mmol/L Low 98-107 [facility] Comment on above: Performed By: #### L 500.2500 #### [facility] [address] [facility] [address] CO2 [Moles/Vol] 26.0 mmol/L Normal 21.0-32.0 [facility] Comment on above: Performed By: #### L 500.2500 #### [facility] [address] [facility] [address] Creatinine [Mass/Vol] 0.76 mg/dL Normal 0.70-1.30 [facility] Comment on above: Result Comment: The validity of the calculated GFR GFRAA in patients over 70 years has not been determined. Clinical correlation is essential. Performed By: #### L 500.2500 #### [facility] [address] [place], [address] EST GFR - AA 131 mL/min Normal >60 [facility] Comment on above: Result Comment: Afri can [place]ian GFR Calc Performed By: #### L 500.2500 #### [facility] [address] [place], [address] GAP 8 Normal 5-15 [facility] Comment on above: Performed By: #### L 500.2500 #### [facility] [address] [place], [address] GFR/1.73 sq M.predicted among non-blacks MDRD (S/P/Bld) [Vol rate/Area] 109 mL/min/{1.73_m2} Normal >60 [facility] Comment on above: Result Comment: Non- GFR Calc Performed By: #### L 500.2500 #### [facility] [address] [place], [address] Glucose [Mass/Vol] 131 mg/dL High 74-106 [facility] Comment on above: Result Comment: Fast ing Glucose result greater than or equal to 126 mg/dL suggests DIABETES MELLITUS per A.D.A. criteria. Performed By: #### L 500.2500 #### [facility] [address] [place], [address] Potassium [Moles/Vol] 3.6 mmol/L Normal 3.5-5.1 [facility] Comment on above: Performed By: #### L 500.2500 #### [facility] [address] [place], [address] Sodium [Moles/Vol] 121 mmol/L Low 136-145 [facility] Comment on above: Performed By: #### L 500.2500 #### [facility] [address] [place], [address] Urea nitrogen [Mass/Vol] 11 mg/dL Normal 7-18 [facility] Comment on above: Performed By: #### L 500.2500 #### [facility] [address] [place], [address] Bilirubin, totalOrdered By: Jeferson Thomas on 12-11-2024 Bilirubin [Mass/Vol] 0.60 mg/dL 0.20-1.00 [facility] Comment on above: For patients on eltr ombopag therapy, use of Dimension [place] TBIL is not recommended. Blood urea nitrogen (BUN)/cr eatinine ratioOrdered By: eJferson Thomas on 12-11-2024 Urea nitrogen/Creatinine [Mass ratio] 14.4 mg/mg 10-20 [facility] Carbon dioxide measurementOr dered By: Jeferson Thomas on 12-11-2024 CO2 [Moles/Vol] 26.0 mmol/L 21.0-32.0 [facility] Chloride measurementOrdered By: Jeferson [facility] Servicesrosal[facility] on 12-11-2024 Chloride [Moles/Vol] 86 mmol/L Low 98-107 [facility] Comprehensive Metabolic Prof ilon 12-11-2024 Albumin [Mass/Vol] 3.9 g/dL Normal 3.2-5.0 [facility] Comment on above: Order Comment: GREEN TOP REJECTED - WAS BROUGHT IN AFTER 1400. Performed By: #### L 500.4050 #### [facility] [address] [place], [place], [address] Albumin/Globulin [Mass ratio] 1.1 {ratio} Normal 0.9-2.4 [facility] Comment on above: Order Comment: GREEN TOP REJECTED - WAS BROUGHT IN AFTER 1400. Performed By: #### L 500.4050 #### [facility] [address] [place], [address] ALK P 108 U/L Normal 45-117 [facility] Comment on above: Order Comment: GREEN TOP REJECTED - WAS BROUGHT IN AFTER 1400. Performed By: #### L 500.4050 #### [facility] [address] [place], [address] ALT [Catalytic activity/Vol] 33 U/L Normal 16-61 [facility] Comment on above: Order Comment: GREEN TOP REJECTED - WAS BROUGHT IN AFTER 1400. Performed By: #### L 500.4050 #### [facility] [address] [place], [address] AST [Catalytic activity/Vol] 32 U/L Normal 15-37 [facility] Comment on above: Order Comment: GREEN TOP REJECTED - WAS BROUGHT IN AFTER 1400. Performed By: #### L 500.4050 #### [facility] [address] [place], [address] Bilirubin [Mass/Vol] 0.60 mg/dL Normal 0.20-1.00 [facility] Comment on above: Order Comment: GREEN TOP REJECTED - WAS BROUGHT IN AFTER 1400. Result Comment: For patients on eltrombopag therapy, use of Dimension [place] TBIL is not recommended. Performed By: #### L 500.4050 #### [facility] [address] [place], [address] BUN/CRE 15.5 RATIO Normal 10-20 [facility] Comment on above: Order Comment: GREEN TOP REJECTED - WAS BROUGHT IN AFTER 1400. Performed By: #### L 500.4050 #### [facility] [address] [place], [address] CA,Total 8.7 mg/dL Normal 8.5-10.1 [facility] Comment on above: Order Comment: GREEN TOP REJECTED - WAS BROUGHT IN AFTER 1400. Performed By: #### L 500.4050 #### [facility] [address] [place], [address] Chloride [Moles/Vol] 86 mmol/L Low 98-107 [facility] Comment on above: Order Comment: GREEN TOP REJECTED - WAS BROUGHT IN AFTER 1400. Performed By: #### L 500.4050 #### [facility] [address] [place], [address] CO2 [Moles/Vol] 26.0 mmol/L Normal 21.0-32.0 [facility] Comment on above: Order Comment: GREEN TOP REJECTED - WAS BROUGHT IN AFTER 1400. Performed By: #### L 500.4050 #### [facility] [address] [place], [address] Creatinine [Mass/Vol] 0.71 mg/dL Normal 0.70-1.30 [facility] Comment on above: Order Comment: GREEN TOP REJECTED - WAS BROUGHT IN AFTER 1400. Result Comment: The validity of the calculated GFR GFRAA in patients over 70 years has not been determined. Clinical correlation is essential. Performed By: #### L 500.4050 #### [facility] [address] [place], [address] EST GFR - AA 143 mL/min Normal >60 [facility] Comment on above: Order Comment: GREEN TOP REJECTED - WAS BROUGHT IN AFTER 1400. Result Comment: Afri can [place]ian GFR Calc Performed By: #### L 500.4050 #### [facility] [address] [place], [address] GAP 9 Normal 5-15 [facility] Comment on above: Order Comment: GREEN TOP REJECTED - WAS BROUGHT IN AFTER 1400. Performed By: #### L 500.4050 #### [facility] [address] [place], [address] GFR/1.73 sq M.predicted among non-blacks MDRD (S/P/Bld) [Vol rate/Area] 118 mL/min/{1.73_m2} Normal >60 [facility] Comment on above: Order Comment: GREEN TOP REJECTED - WAS BROUGHT IN AFTER 1400. Result Comment: Non- GFR Calc Performed By: #### L 500.4050 #### [facility] [address] [place], [address] Globulin (S) [Mass/Vol] 3.4 g/dL Normal 2.2-4.2 [facility] Comment on above: Order Comment: GREEN TOP REJECTED - WAS BROUGHT IN AFTER 1400. Performed By: #### L 500.4050 #### [facility] [address] [place], [address] Glucose [Mass/Vol] 94 mg/dL Normal 74-106 [facility] Comment on above: Order Comment: GREEN TOP REJECTED - WAS BROUGHT IN AFTER 1400. Performed By: #### L 500.4050 #### [facility] [address] [place], [address] Potassium [Moles/Vol] 4.4 mmol/L Normal 3.5-5.1 [facility] Comment on above: Order Comment: GREEN TOP REJECTED - WAS BROUGHT IN AFTER 1400. Performed By: #### L 500.4050 #### [facility] [address] [place], [address] Sodium [Moles/Vol] 120 mmol/L Low 136-145 [facility] Comment on above: Order Comment: GREEN TOP REJECTED - WAS BROUGHT IN AFTER 1400. Performed By: #### L 500.4050 #### [facility] [address] [place], [address] T PROT 7.3 g/dL Normal 6.4-8.2 [facility] Comment on above: Order Comment: GREEN TOP REJECTED - WAS BROUGHT IN AFTER 1400. Performed By: #### L 500.4050 #### [facility] [address] [place], [address] Urea nitrogen [Mass/Vol] 11 mg/dL Normal 7-18 [facility] Comment on above: Order Comment: GREEN TOP REJECTED - WAS BROUGHT IN AFTER 1400. Performed By: #### L 500.4050 #### [facility] [address] [place], [address] Estimated glomerular filtrat ion rate (GFR) AmericanOrdered By: Jeferson Thomas on 12-11-2024 Estimated GFR (MDRD) Amer 131 mL/min >60 [facility] Comment on above: GFR Calc Glomerular filtration rate ( GFR) estimationOrdered By: Jeferson Thomas on 12-11-2024 Estimated GFR (MDRD) Non-Af Amer 109 mL/min >60 [facility] Comment on above: Non- GFR Calc GFR/1.73 sq M.predicted among non-blacks MDRD (S/P/Bld) [Vol rate/Area] 109 mL/min/{1.73_m2} >60 [facility] Comment on above: Non- GFR Calc Glucose measurementOrdered B y: Jeferson Thomas on 12-11-2024 Glucose [Mass/Vol] 131 mg/dL High 74-106 [facility] Comment on above: Fasting Glucose resu lt greater than or equal to 126 mg/dL suggests DIABETES MELLITUS per A.D.A. criteria. Laboratory - Chemistry and C hemistry - challengeOrdered By: Jeferson Thomas on 12-11-2024 AST [Catalytic activity/Vol] 32 U/L 15-37 [facility] Potassium measurementOrdered By: Jeferson Thomas on 12-11-2024 Potassium [Moles/Vol] 3.6 mmol/L 3.5-5.1 [facility] Serum anion gap measurementO rdered By: Jeferson Thomas on 12-11-2024 Anion gap [Moles/Vol] 8 mmol/L 5-15 [facility] Serum globulin measurementOr dered By: Jeferson Thomas on 12-11-2024 Globulin (S) [Mass/Vol] 3.4 g/dL 2.2-4.2 [facility] Serum or plasma alanine real otransferase (ALT) measurementOrdered By: Jeferson Thomas on 12-11-2024 ALT [Catalytic activity/Vol] 33 U/L 16-61 [facility] Serum or plasma albumin adelso urement (mass/volume)Ordered By: Jeferson Thomas on 12-11-2024 Albumin [Mass/Vol] 3.9 g/dL 3.2-5.0 [facility] Serum or plasma alkaline jo sphatase measurementOrdered By: Jeferson Thomas on 12-11-2024 ALP [Catalytic activity/Vol] 108 U/L 45-117 [facility] Serum or plasma calcium adelso urement (mass/volume)Ordered By: Jeferson Thomas on 12-11-2024 Calcium [Mass/Vol] 8.8 mg/dL 8.5-10.1 [facility] Serum or plasma creatinine m easurement (mass/volume)Ordered By: Jeferson Thomas on 12-11-2024 Creatinine [Mass/Vol] 0.76 mg/dL 0.70-1.30 [facility] Comment on above: The validity of the calculated GFR & GFRAA in patients over 70 years has not been determined. Clinical correlation is essential. Serum or plasma urea nitroge n measurement (mass/volume)Ordered By: Jeferson Thomas on 12-11-2024 Urea nitrogen [Mass/Vol] 11 mg/dL 7-18 [facility] Sodium levelOrdered By: Jeferson Thomas on 12-11-2024 Sodium [Moles/Vol] 121 mmol/L Low 136-145 [facility] Total proteinOrdered By: Filipe Thomas on 12-11-2024 Protein [Mass/Vol] 7.3 g/dL 6.4-8.2 [facility] CNOVon 11-18-2024 CNOV Office Visit (ABBY ) JORGE A RIVERA ([id number]) 1960 M Date Time Provider Department 11/18/24 9:00 AM RUBIO GRIMES During your visit today, we recorded the following information about you: Pulse Blood pressure Weight 78/minute 146/78 67.1 kg Rubio Grimes MD 11/18/2024 9:26 AM Signed [facility] NEPHROLOGY AND HYPERTENSION [facility] SERVICE DATE: 11/18/2024 [...] Take 81 mg by mouth once daily. Aurora-3 Fatty Acids-Vitamin E (FISH OIL) 1,000 mg [...] interval not displayed. No results for input(s): "BUNRAT", "BUNPR", "BUNPO" in the last 168 hours. No results for input(s): "HEPSABQ" in the last 1440 h (more content not included)... Normal [facility] Renal function 2000 panelon 11-10-2024 Albumin [Mass/Vol] 4.2 g/dL Normal 3.9-4.9 [facility] Comment on above: Order Comment: Speci men Type: BLOOD SPECIMENOrdering Facility: [facility] Address: [address] [place] [address] Performed By: #### 2 4362-6 ####[facility]WJULIENA [id number] [place] [address] [place] Anion gap [Moles/Vol] 10 mmol/L Normal 8-15 [facility] Comment on above: Order Comment: Speci men Type: BLOOD SPECIMENOrdering Facility: [facility] Address: [address] [place], [place] [address] Performed By: #### 2 4362-6 ####[facility] MILLTOWALEJANDROLIA [id number] [place] [address] [place] Calcium [Mass/Vol] 9.5 mg/dL Normal 8.5-10.2 [facility] Comment on above: Order Comment: Speci men Type: BLOOD SPECIMENOrdering Facility: [facility] Address: [address] [place] [address] Performed By: #### 2 4362-6 ####[facility] MILLTOWNCLIA [id number] [place] [address] [place] Chloride [Moles/Vol] 96 mmol/L Low 98-107 [facility] Comment on above: Order Comment: Speci men Type: BLOOD SPECIMENOrdering Facility: [facility] Address: [address] [place] [address] Performed By: #### 2 4362-6 ####[facility]ITALWNCLIA [id number] [place] [address] [place] CO2 [Moles/Vol] 28 mmol/L Normal 22-30 [facility] Comment on above: Order Comment: Speci men Type: BLOOD SPECIMENOrdering Facility: [facility] Address: [address] [place] [address] Performed By: #### 2 4362-6 ####[facility]ALL[facility] [id number] [place] [address] [place] Creatinine [Mass/Vol] 0.76 mg/dL Normal 0.73-1.22 [facility] Comment on above: Order Comment: Speci men Type: BLOOD SPECIMENOrdering Facility: [facility] Address: [address] [place] [address] Performed By: #### 2 4362-6 ####[facility] [id number] [place] [address] [place] Creatinine and Glomerular filtration rate.predicted panel (S/P/Bld) 100 mL/min/1.73m??? Normal >=60 [facility] Comment on above: Order Comment: Speci men Type: BLOOD SPECIMENOrdering Facility: [facility] Address: [address] [place] [address] Result Comment: Kitty mated Glomerular Filtration Rate [...] actual GFR. Performed By: #### 2 4362-6 ####[facility]ITALNCLIA [id number] [place] [address] [place] Glucose [Mass/Vol] 79 mg/dL Normal 74-99 [facility] Comment on above: Order Comment: Specgilbert arroyo Type: BLOOD SPECIMENOrdering Facility: [facility] Address: [address] [place], [place] [address] Result Comment: The [place] Diabetes Association (ADA) provides guidance for cutoff [...] Standards of Medical Care in Diabetes 2016, [place] Diabetes Association. Diabetes Care. 2016.39(Suppl 1). Performed By: #### 2 4362-6 ####[facility] HOSPITALJohnathon [id number] [place] [address] [place] Phosphate [Mass/Vol] 3.8 mg/dL Normal 2.7-4.8 [facility] Comment on above: Order Comment: Gm arroyo Type: BLOOD SPECIMENOrdering Facility: [facility] Address: [address] [place], [place] [address] Performed By: #### 2 4362-6 ####ED [facility] HOSPITALWALEJANDROLIA [id number] [place] [address] [place] Potassium [Moles/Vol] 4.3 mmol/L Normal 3.7-5.1 [facility] Comment on above: Order Comment: Simonei cruz Type: BLOOD SPECIMENOrdering Facility: [facility] Address: [address] [place], [place] [address] Performed By: #### 2 4362-6 ####ED [facility] HOSPITALWNCLIA [id number] [place] [address] [place] Sodium [Moles/Vol] 134 mmol/L Low 136-144 [facility] Comment on above: Order Comment: Speci men Type: BLOOD SPECIMENOrdering Facility: [facility] Address: [address] [place] [address] Performed By: #### 2 4362-6 ####[facility] BILLIE DEMIVERONANCLIJohnathon [id number] [place] [address] [place] Urea nitrogen [Mass/Vol] 14 mg/dL Normal 9-24 [facility] Comment on above: Order Comment: Speci men Type: BLOOD SPECIMENOrdering Facility: [facility] Address: [address] [place] [address] Performed By: #### 2 4362-6 ####[facility] BILLIEHOLDEN MEMORIAL HOSPITALNCLI [id number] [place] [address] [place] Lower Ext Art Exam w/ Exerci bijan 11-06-2024 Lower Ext Art Exam w/ Exercise [facility] [address] [place] [address] Lower Ext Art Exam w/ Exercise 11/06/24 0803 MR#: [id number] Acct: [id number] Name: JORGE A RIVERA Rep #: [id number] : 1960 64 From: Damon Melendrez MD [...] Ordering Physician: Jodee Mitchell Referring Physician: Jeferson Thomas M.D. Performed By: Gen Andrade RVT and Student 11/09/24 1345 Date Damon Melendrez MD CC: BIANCA Garcia; Dr. Jeferson Thomas MD Date Dictated: 11/06/24 0803 Date Transcribed: 11/09/24 134 Scooping Machine Tender: Signed Normal [facility] MR/BMS.Kristi 10-08-2024 MR/BMS.SERENA [facility] Vascular Surgery [facility] [address] [place] [address] OFFICE VISIT Date of Service: 10/08/24 MR#: [id number] Acct: [id number] Name: JORGE A RIVERA Rep #: [id number] : 1960 Provider: BIANCA Garcia Age/Sex: 64/M Location: [facility] Status: Signed Intake Vital Signs 04/24/24 14:43 [...] disease) Hyperlipidemia Hypertension Atherosclerotic heart disease of [place] coronary artery without angina pectoris Surgical History [...] PAD as referred by his PCP Dr. Thomas. He recently had a CT Abd/Pelvis which [...] No constipation, N (more content not included)... Normal [facility] CNPBanner 09-02-2024 [facility] Telephone ([facility]) JORGE A RIVERA ([id number]) 1960 Date Time Provider Department 09/02/24 RAMON SAMUEL [facility] During your visit today, we recorded [...] 81 mg by mouth once daily. - Aurora-3 Fatty Acids-Vitamin E (FISH OIL) 1,000 mg [...] Encounter Status:Closed by RAMON SAMUEL on 09/02/24 [facility] 09-01-2024 [facility] Telephone ([facility]) JORGE A RIVERA ([id number]) 1960 Date Time Provider Department 09/01/24 RAMON SAMUEL [facility] During your visit today, we recorded [...] 81 mg by mouth once daily. - Aurora-3 Fatty Acids-Vitamin E (FISH OIL) 1,000 mg [...] Status:Closed by MAIDA PHILLIPS on 09/01/24 Normal [facility] Abdomen/Pelvis WITH Contrast on 08-28-2024 Abdomen/Pelvis WITH Contrast [facility] Imaging Services [address] [place] [address] Abdomen/Pelvis WITH Contrast MR#: [id number] Acct: [id number] Name: JORGE A RIVERA Rep #: [id number] : 1960 M 64 From: Shanthi Lomas MD PCP: Dr. Jeferson Thomas MD Status: REG CLI Study: Abdomen/Pelvis WITH Contrast Date of Exam: 11/20 Exam# [id number] Ordering Dr: Jeferson Thomas MD [id number] EXAM: CT ABDOMEN AND PELVIS WITH INTRAVENOUS [...] the right renal artery origin. 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 Normal [facility] CNPNon 08-28-2024 CNPN Telephone ([facility]) JORGE A RIVERA ([id number]) 1960 M Date Time Provider Department 08/28/24 HAIR ADAMES INTNMT During your visit today, we recorded the following information about you: Ivory Hunter 08/28/2024 3:[address] Fong office needing to know if the Patient can have a CT with contrast please advise! If they dont answer you may also fax to them at [phone]. Mercy Worthy RN 08/28/2024 3:48 PM Signed Routing to Hair Adames to advise. Hair Adames, MASTER OCEAN.[facility] 08/28/2024 3:49 PM Signed He may have CT without renal concern or need for special hydration Mercy Worthy RN 08/28/2024 4:01 PM Signed Faxed to Dr. Thomas's office per request Allergies As of Date: [...] 81 mg by mouth once daily. - Aurora-3 Fatty Acids-Vitamin E (FISH OIL) 1,000 mg [...] Status:Closed by HAIR ADAMES on 08/28/24 Normal [facility] CREATININE FINGERSTICKon CREATININE WB < 1.0 Normal 0.70-1.30 [facility] Comment on above: Performed By: #### L 9100.0200 #### [facility] [address] [place], [address] EGFR WB > 60.0000 Normal >60 [facility] Comment on above: Performed By: #### L 9100.0200 #### [facility] [address] 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 Aurora-3 Fatty Acids-Vitamin E (FISH OIL) 1,000 mg [...] around 1 (more content not included)... Normal [facility] Renal function 2000 panelon 08-12-2024 Albumin [Mass/Vol] 4.5 g/dL Normal 3.9-4.9 [facility] Comment on above: Order Comment: Speci men Type: BLOOD SPECIMENOrdering Facility: [facility] Address: [address] [place] [address] Performed By: #### 2 4362-6 ####[facility] [id number] [place] [address] [place] Anion gap [Moles/Vol] 10 mmol/L Normal 8-15 [facility] Comment on above: Order Comment: Speci men Type: BLOOD SPECIMENOrdering Facility: [facility] Address: [address] [place] [address] Performed By: #### 2 4362-6 ####[facility] HOSPITALLIA [id number] [place] [address] [place] Calcium [Mass/Vol] 9.7 mg/dL Normal 8.5-10.2 [facility] Comment on above: Order Comment: Speci men Type: BLOOD SPECIMENOrdering Facility: [facility] Address: [address] [place] [address] Performed By: #### 2 4362-6 ####[facility] MILLWALEJANDROLIA [id number] [place] [address] [place] Chloride [Moles/Vol] 97 mmol/L Low 98-107 [facility] Comment on above: Order Comment: Speci men Type: BLOOD SPECIMENOrdering Facility: [facility] Address: [address] [place] [address] Performed By: #### 2 4362-6 ####[facility] HOSPITALCALVIN [id number] [place] [address] [place] CO2 [Moles/Vol] 24 mmol/L Normal 22-30 [facility] Comment on above: Order Comment: Speci men Type: BLOOD SPECIMENOrdering Facility: [facility] Address: [address] [place] [address] Performed By: #### 2 4362-6 ####[facility] HOSPITALNCLIA [id number] [place] [address] [place] Creatinine [Mass/Vol] 0.77 mg/dL Normal 0.73-1.22 [facility] Comment on above: Order Comment: Speci men Type: BLOOD SPECIMENOrdering Facility: [facility] Address: [address] [place] [address] Performed By: #### 2 4362-6 ####[facility] HOSPITALNCLIA [id number] [place] [address] [place] Creatinine and Glomerular filtration rate.predicted panel (S/P/Bld) 99 mL/min/1.73m??? Normal >=60 [facility] Comment on above: Order Comment: Gm arroyo Type: BLOOD SPECIMENOrdering Facility: [facility] Address: [address] [place] [address] Result Comment: Kitty mated Glomerular Filtration Rate [...] Performed By: #### 2 4362-6 ####[facility] [id number] [place] [address] [place] Glucose [Mass/Vol] 86 mg/dL Normal 74-99 [facility] Comment on above: Order Comment: Gm arroyo Type: BLOOD SPECIMENOrdering Facility: [facility] Address: [address] [place] [address] Result Comment: The [place] Diabetes Association (ADA) provides guidance for cutoff [...] Standards of Medical Care in Diabetes 2016, [place] Diabetes Association. Diabetes Care. 2016.39(Suppl 1). Performed By: #### 2 4362-6 ####[facility] [id number] [place] [address] [place] Phosphate [Mass/Vol] 3.5 mg/dL Normal 2.7-4.8 [facility] Comment on above: Order Comment: Gm arroyo Type: BLOOD SPECIMENOrdering Facility: [facility] Address: [address] [place] [address] Performed By: #### 2 4362-6 ####ED [facility] HOSPITALWNCLIA [id number] [place] [address] [place] Potassium [Moles/Vol] 4.1 mmol/L Normal 3.7-5.1 [facility] Comment on above: Order Comment: Speci men Type: BLOOD SPECIMENOrdering Facility: [facility] Address: [address] [place] [address] Performed By: #### 2 4362-6 ####[facility] HOSPITALNCLIA [id number] [place] [address] [place] Sodium [Moles/Vol] 131 mmol/L Low 136-144 [facility] Comment on above: Order Comment: Speci men Type: BLOOD SPECIMENOrdering Facility: [facility] Address: [address] [place] [address] Performed By: #### 2 4362-6 ####[facility] HOSPITALNCLIA [id number] [place] [address] [place] Urea nitrogen [Mass/Vol] 15 mg/dL Normal 9-24 [facility] Comment on above: Order Comment: Speci men Type: BLOOD SPECIMENOrdering Facility: [facility] Address: [address] [place] [address] Performed By: #### 2 4362-6 ####[facility] HOSPITALNCLIA [id number] [address] [place] CNPSue 08-06-2024 [facility] JORGE A RIVERA Nuha ([id number]) 1960 Date Time Provider Department 08/06/24 [facility] During your visit today, we recorded [...] Known Allergies) Date Reviewed: 04/07/2024 Reviewed by: Tara Lino RPFT - Fully Assessed Primary Visit Diagnosis:SIADH (syndrome of inappropriate ADH production) ([facility]) [E22.2] Order(s):RENAL FUNCTION PANEL [SQRFP] Order #: [id number] FUTURE Prescriptions as of 08/06/2024 - lisinopril [...] 81 mg by mouth once daily. - Aurora-3 Fatty Acids-Vitamin E (FISH OIL) 1,000 mg [...] Status:Closed by RUBIO GRIMES on 08/06/24 Normal [facility] Renal function 2000 panelon 08-06-2024 Albumin [Mass/Vol] 4.4 g/dL Normal 3.9-4.9 [facility] Comment on above: Order Comment: Speci men Type: BLOOD SPECIMENOrdering Facility: [facility] Address: [address] [place] [address] Performed By: #### 2 4362-6 ####[facility] BILLIEHOLDEN MEMORIAL HOSPITALALEJANDROLIJohnathon [id number] [place] [address] [place] Anion gap [Moles/Vol] 10 mmol/L Normal 8-15 [facility] Comment on above: Order Comment: Speci men Type: BLOOD SPECIMENOrdering Facility: [facility] Address: [address] [place] [address] Performed By: #### 2 4362-6 ####[facility] BILLIEHOLDEN MEMORIAL HOSPITALNCLIA [id number] [place] [address] [place] Calcium [Mass/Vol] 9.4 mg/dL Normal 8.5-10.2 [facility] Comment on above: Order Comment: Speci men Type: BLOOD SPECIMENOrdering Facility: [facility] Address: [address] [place] [address] Performed By: #### 2 4362-6 ####[facility] BILLIE MILLVERONANCLIA [id number] [place] [address] [place] Chloride [Moles/Vol] 91 mmol/L Low 98-107 [facility] Comment on above: Order Comment: Speci men Type: BLOOD SPECIMENOrdering Facility: [facility] Address: [address] [place] [address] Performed By: #### 2 4362-6 ####[facility] BILLIE CHANELLWNCLIA [id number] [place] [address] [place] CO2 [Moles/Vol] 25 mmol/L Normal 22-30 [facility] Comment on above: Order Comment: Speci men Type: BLOOD SPECIMENOrdering Facility: [facility] Address: [address] [place] [address] Performed By: #### 2 4362-6 ####[facility] HOSPITALNCLIA [id number] [place] [address] [place] Creatinine [Mass/Vol] 0.72 mg/dL Low 0.73-1.22 [facility] Comment on above: Order Comment: Speci men Type: BLOOD SPECIMENOrdering Facility: [facility] Address: [address] [place] [address] Performed By: #### 2 4362-6 ####[facility] HOSPITALNCLIA [id number] [address] Creatinine and Glomerular filtration rate.predicted panel (S/P/Bld) 101 mL/min/1.73m??? Normal >=60 [facility] Comment on above: Order Comment: Speci men Type: BLOOD SPECIMENOrdering Facility: [facility] Address: [address] [place] [address] Result Comment: Kitty mated Glomerular Filtration Rate [...] actual GFR. Performed By: #### 2 4362-6 ####ED [facility] HOSPITALWNCLIA [id number] [place] [address] [place] Glucose [Mass/Vol] 110 mg/dL High 74-99 [facility] Comment on above: Order Comment: Speci men Type: BLOOD SPECIMENOrdering Facility: [facility] Address: [address] [place], [place] [address] Result Comment: The [place] Diabetes Association (ADA) provides guidance for cutoff [...] Standards of Medical Care in Diabetes 2016, [place] Diabetes Association. Diabetes Care. 2016.39(Suppl 1). Performed By: #### 2 4362-6 ####[facility] MILLTOWNCLIA [id number] [place] [address] [place] Phosphate [Mass/Vol] 3.1 mg/dL Normal 2.7-4.8 [facility] Comment on above: Order Comment: Speci men Type: BLOOD SPECIMENOrdering Facility: [facility] Address: [address] [place] [address] Performed By: #### 2 4362-6 ####[facility] MILLTOWNCLIA [id number] [place] [address] [place] Potassium [Moles/Vol] 4.1 mmol/L Normal 3.7-5.1 [facility] Comment on above: Order Comment: Speci men Type: BLOOD SPECIMENOrdering Facility: [facility] Address: [address] [place], [place] [address] Performed By: #### 2 4362-6 ####[facility] MILLTOWNCLIA [id number] [place] [address] [place] Sodium [Moles/Vol] 126 mmol/L Low 136-144 [facility] Comment on above: Order Comment: Speci men Type: BLOOD SPECIMENOrdering Facility: [facility] Address: [address] [place] [address] Performed By: #### 2 4362-6 ####[facility] [id number] [place] [address] [place] Urea nitrogen [Mass/Vol] 11 mg/dL Normal 9-24 [facility] Comment on above: Order Comment: Speci men Type: BLOOD SPECIMENOrdering Facility: [facility] Address: [address] [place] [address] Performed By: #### 2 4362-6 ####[facility] [id number] [place] [address] [place] No Panel Informationon 04-07 [facility] [address] [place] [address] Test Date: 2024-04-07 Pat Name: JORGE A RIVERA Department: Room: Gender: Male 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1960 Requested By: Order Number: [id number] Reading MD: Rosibel Mckeon MD Interpretive Statements Medications and Allergies were [...] Signed On 04-07-2024 16:48:00 EDT by Rosibel Mckeon MD ID: [id number] Name: JORGE A RIVERA Race: White Ht: 67.56 in Wt: 142.00 lbs Age: 64 Gender: Male : 1960 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 PULMONARY FUNCTION LAB [facility] SIX MINUTE WALKon 04-07-2024 Tara Lino RPF T 04/07/2024 1:32 PM RESPIRATORY [...] Total Time Spent (min) 171.6 cm (5' 7.56") 64.4 kg (142 lb) R Index Finger [...] DATE: April 07, 2024 TIME: 1:31 PM [facility] SIX MINUTE WALKOrdered By: Trav Mckeon on 04-07-2024 [facility] Work Phone: SPIROMETRY WITH DILATOR IF O BSTRUCTEDon 04-07-2024 DLCO (ml/min/mmHg) 15.94 ml/min/mmHg [facility] DLCO/VA (ml/min/mmHg/L) 2.77 ml/min/mmHg/ L [facility] ERV BOX (L) 1.93 L [facility] ZBL98-23% PRE (L/S) 1.65 L/S [facility] FEV1 PRE (L) 2.75 L [facility] FEV1/FVC PRE (%) 65 % [facility] FRC Box (L) 4.39 L [facility] FVC PRE (L) 4.20 L [facility] IC BOX (L) 2.18 L [facility] PEF PRE (L/S) 6.01 L/S [facility] RV Box (L) 2.33 L [facility] RV/TLC Box (%) 36 % [facility] TLC Box (L) 6.43 L [facility] VA (L) 5.75 L [facility] VC (L) BOX 4.11 L [facility] XR Chest PA and LateralOrder ed By: Ccf Provider on 02-20-2024 Interpretation and review of laboratory results Abnormal [facility] Radiology Result ACTIONABLE Abnormal [facility] Comment on above: This report contains [...] contact your provider for the next steps. [facility] XR Chest PA and Lateralon IMPRESSION: Pleural thickening along the left lateral hemithorax. CT chest recommended for further evaluation ACTIONABLE RESULT: FOLLOW-UP Acuity: Actionable Findings: Thoracic-Other Routing Code: CT_1 Recommendation: CT Chest WO IVCON Time Frame: At the discretion of the clinical team. COMMUNICATION: Results will be communicated with the ordering provider via [facility]dl therapeutics staff message or phone message by [facility] Support Services within 2 business days of report finalization. --END OF FINDING-- Scooping Machine Tender: PSCB Transcribe Date/Time: Feb 20 2024 1:48P Dictated by : CASANDRA RITTER MD This examination was interpreted and the report reviewed and electronically signed by: CASANDRA RITTER MD on Feb 20 2024 1:50PM [facility] DIVISION OF RADIOLOGY * * *Final Report* * * DATE OF EXAM: Feb 19 2024 9:09AM STX 5291 - XR CHEST 2V FRONTAL/LAT / PROCEDURE REASON: multiple diagnoses * * * * Physician Interpretation * * * * EXAMINATION: CHEST RADIOGRAPH (2 VIEW FRONTAL & LATERAL) CLINICAL HISTORY: Hyponatremia SIADH (syndrome of inappropriate ADH production) (HCC) MQ: XC2_6 EXAM DATE/TIME: 02/19/2024 9:09 AM COMPARISON: No relevant prior studies available. RESULT: Lines, tubes, and devices: Mediastinal wires are seen. Lungs and pleura: No consolidation. No lung mass. Somewhat lobulated pleural thickening along the left lateral hemithorax .No pneumothorax. Cardiomediastinal silhouette: Normal cardiomediastinal silhouette. Bones and soft tissues: Unremarkable. DIVISION OF RADIOLOGY Provider, [facility] - 02/20/2024 * * *Final Report* * * DATE OF EXAM: Feb 19 2024 9:09AM STX 5291 - XR CHEST 2V FRONTAL/LAT / PROCEDURE REASON: multiple diagnoses * * * * Physician Interpretation * * * * EXAMINATION: CHEST RADIOGRAPH (2 VIEW FRONTAL & LATERAL) CLINICAL HISTORY: Hyponatremia SIADH (syndrome of inappropriate ADH production) (HCC) MQ: XC2_6 EXAM DATE/TIME: 02/19/2024 9:09 AM [...] be communicated with the ordering provider via [facility] therapeutics staff message or phone message by [facility] within 2 business days of report finalization. --END OF FINDING-- Scooping Machine Tender: FABRICE Transcribe Date/Time: Feb 20 2024 1:48P Dictated by : CASANDRA RITTER MD This examination was interpreted and the report reviewed and electronically signed by: CASANDRA RITTER MD on Feb 20 2024 1:50PM [facility] CBC panel Auto (Bld)on 02-18 Erythrocyte distribution width (RBC) [Ratio] 13.2 % 11.5 - 15.0 % [facility] Hematocrit (Bld) [Volume fraction] 40.9 % 39.0 - 51.0 % [facility] Hemoglobin (Bld) [Mass/Vol] 14.1 g/dL 13.0 - 17.0 g/dL [facility] Interpretation and review of laboratory results Normal [facility] MCH (RBC) [Entitic mass] 32.9 pg 26.0 - 34.0 pg [facility] MCHC (RBC) [Mass/Vol] 34.5 g/dL 30.5 - 36.0 g/dL [facility] MCV (RBC) [Entitic vol] 95.3 fL 80.0 - 100.0 fL [facility] Nucleated RBC (Bld) [#/Vol] NINF [facility] Platelet mean volume (Bld) [Entitic vol] 9.5 fL 9.0 - 12.7 fL [facility] Platelets (Bld) [#/Vol] 238 10*3/uL [facility] RBC (Bld) [#/Vol] 4.29 10*6/uL 4.20 - 6.0 0 m/uL [facility] WBC (Bld) [#/Vol] 8.75 10*3/uL [facility] Hepatic function 2000 panelo n 02-19-2024 Albumin [Mass/Vol] 4.6 g/dL 3.9 - 4.9 g/dL [facility] ALP [Catalytic activity/Vol] 83 U/L 38 - 113 U/L [facility] ALT [Catalytic activity/Vol] 13 U/L 10 - 54 U/L [facility] AST [Catalytic activity/Vol] 19 U/L 14 - 40 U/L [facility] Bilirubin [Mass/Vol] 0.7 mg/dL 0.2 - 1 .3 mg/dL [facility] Bilirubin.conjugated [Mass/Vol] 0.2 mg/dL High NINF - 0.2 mg/dL [facility] Protein [Mass/Vol] 7.4 g/dL 6.3 - 8.0 g/dL [facility] No Panel InformationOrdered By: Renetta Grant on 02-19-2024 Interpretation and review of laboratory results Abnormal [facility] OSMOLALITY URINEOrdered By: Letty Stephenson on 02-19-2024 Osmolality (U) [Osmolality] 483 mosm/kg [facility] Osmolality (U) [Osmolality]O rdered By: Letty Stephenson on 02-19-2024 Interpretation and review of laboratory results Normal [facility] URIC ACIDOrdered By: Renetta Grant on 02-19-2024 Urate [Mass/Vol] 3.4 mg/dL Low 4.0 - 8.1 mg/dL [facility] Urinalysis complete panel (U )Ordered By: Demar Ceballos on 02-19-2024 Bacteria LM.HPF (Urine sed) [#/Area] Negative Negative /HPF [facility] Bilirubin Ql (U) Negative Negative [facility] Clarity (Unsp spec) Clear Clear [facility] Color (U) Yellow Yellow [facility] Epithelial cells LM.HPF (Urine sed) [#/Area] None Seen /HPF [facility] Glucose Test strip (U) [Mass/Vol] Negative Negative [facility] Hemoglobin Ql (U) Negative Negative [facility] Hyaline casts (Urine sed) [#/Area] 0 /[LPF] 0 /LPF [facility] Ketones Ql (U) Negative Negative [facility] Leukocyte esterase Test strip Ql (U) Negative Negative [facility] Nitrite Ql (U) Negative Negative [facility] pH (U) 7.0 [pH] NINF - 8.5 [facility] Protein (U) [Mass/Vol] Negative Negative Cl [facility] RBC LM.HPF (Urine sed) [#/Area] 0-2 /HPF 0-2 /HPF [facility] Specific gravity (U) [Rel density] 1.016 1.005 - 1.030 [facility] Urobilinogen Ql (U) 0.2 EU/dL 0.2-1.0 EU/dL [facility] WBC LM.HPF (Urine sed) [#/Area] 0-5 /HPF 0-5 /HPF [facility] This test was developed and its performance characteristics determined by [facility]'s [facility] [place] ([facility] It has not been cleared or approved by the FDA. [facility] is regulated under CLIA as qualified to perform high-complexity testing. This test is used for clinical purposes. It should not be regarded as investigational or for research. [facility] XR Chest PA and Lateralon Radiology Study observation (narrative) [facility] Basophil percentageOrdered B y: Judy Guan on 01-31-2024 Chloride [Moles/Vol] 97 mmol/L 98-107 [facility] Glucose [Mass/Vol] 92 mg/dL 74-106 [facility] Potassium [Moles/Vol] 4.1 mmol/L 3.5-5.1 [facility] Sodium [Moles/Vol] 130 mmol/L 136-145 [facility] Laboratory - Chemistry and C hemistry - challengeOrdered By: Judy Guan on 01-31-2024 CO2 [Moles/Vol] 27.0 mmol/L 21.0-32.0 [facility] Urea nitrogen/Creatinine [Mass ratio] 14.1 mg/mg 10-20 [facility] No Panel InformationOrdered By: Judy Guan on 01-31-2024 Estimated GFR (MDRD) Amer 116 mL/min >60 [facility] Comment on above: GFR Calc Estimated GFR (MDRD) Non-Af Amer 96 mL/min >60 [facility] Comment on above: Non- GFR Calc Serum or plasma calcium adelso urement (mass/volume)Ordered By: Judy Guan on 01-31-2024 Calcium [Mass/Vol] 9.0 mg/dL 8.5-10.1 [facility] Serum or plasma creatinine m easurement (mass/volume)Ordered By: Judy Guan on 01-31-2024 Creatinine [Mass/Vol] 0.85 mg/dL 0.70-1.30 [facility] Comment on above: The validity of the calculated GFR & GFRAA in patients over 70 years has not been determined. Clinical correlation is essential. Serum or plasma urea nitroge n measurement (mass/volume)Ordered By: Judy Guan on 01-31-2024 Urea nitrogen [Mass/Vol] 12 mg/dL 7-18 [facility] Thin prep Papanicolaou smear with manual screeningOrdered By: Judy Guan on 01-31-2024 Thin prep Papanicolaou smear with manual screening 6 5-15 [facility] Basophil percentageOrdered B y: Judy Guan on 01-10-2024 Chloride [Moles/Vol] 93 mmol/L 98-107 [facility] Glucose [Mass/Vol] 93 mg/dL 74-106 [facility] Potassium [Moles/Vol] 3.7 mmol/L 3.5-5.1 [facility] Sodium [Moles/Vol] 126 mmol/L 136-145 [facility] Laboratory - Chemistry and C hemistry - challengeOrdered By: Judy Guan on 01-10-2024 CO2 [Moles/Vol] 28.0 mmol/L 21.0-32.0 [facility] Urea nitrogen/Creatinine [Mass ratio] 11.4 mg/mg 10-20 [facility] No Panel InformationOrdered By: Judy Guan on 01-10-2024 Estimated GFR (MDRD) Amer 112 mL/min >60 [facility] Comment on above: GFR Calc Estimated GFR (MDRD) Non-Af Amer 93 mL/min >60 [facility] Comment on above: Non- GFR Calc Serum or plasma calcium adelso urement (mass/volume)Ordered By: Judy Guan on 01-10-2024 Calcium [Mass/Vol] 8.5 mg/dL 8.5-10.1 [facility] Serum or plasma creatinine m easurement (mass/volume)Ordered By: Judy Guan on 01-10-2024 Creatinine [Mass/Vol] 0.88 mg/dL 0.70-1.30 [facility] Comment on above: The validity of the calculated GFR & GFRAA in patients over 70 years has not been determined. Clinical correlation is essential. Serum or plasma urea nitroge n measurement (mass/volume)Ordered By: Judy Guan on 01-10-2024 Urea nitrogen [Mass/Vol] 10 mg/dL 05-14 [facility] Thin prep Papanicolaou smear with manual screeningOrdered By: Judy Guan on 01-10-2024 Thin prep Papanicolaou smear with manual screening 03-11 [facility] Absolute lymphocyte countOrd ered By: Bull Gusman on 01-03-2024 Lymphocytes Auto (Unsp spec) [#/Vol] 1.18 10*3/uL 0.83-4.51 [facility] Automated lymphocyte count a s percentage of total leukocytesOrdered By: Bull Gusman on 01-03-2024 Lymphocytes/100 WBC Auto (Unsp spec) 22.5 % 19-41 [facility] Basophil percentageOrdered B y: Bull Gusman on 01-03-2024 Basophils/100 WBC (Bld) 0.4 % 0-1 [facility] Eosinophils/100 WBC (Bld) 0.6 % 0-5 [facility] Hemoglobin (Bld) [Mass/Vol] 12.6 g/dL 13.0-16.5 [facility] Monocytes/100 WBC (Bld) 9.9 % 0-10 [facility] Neutrophils (Bld) [#/Vol] 3.5 10*3/uL 2.0-7.7 [facility] Neutrophils/100 WBC (Bld) 66.0 % 47-70 [facility] WBC (Bld) [#/Vol] 5.2 10*3/uL 4.4-11.0 [facility] Basophil percentageOrdered B y: Judy Guan on 01-03-2024 Chloride [Moles/Vol] 92 mmol/L 98-107 [facility] Glucose [Mass/Vol] 95 mg/dL 74-106 [facility] Potassium [Moles/Vol] 3.7 mmol/L 3.5-5.1 [facility] Sodium [Moles/Vol] 126 mmol/L 136-145 [facility] Determination of erythrocyte mean corpuscular volume (MCV)Ordered By: Bull Gusman on 01-03-2024 MCV (RBC) [Entitic vol] 88.2 fL 80-94 [facility] Erythrocyte distribution wid th ratioOrdered By: Bull Gusman on 01-03-2024 Erythrocyte distribution width (RBC) [Ratio] 11.6 % 11.6-14.6 [facility] Erythrocyte distribution wid th standard deviationOrdered By: Bull Gusman on 01-03-2024 Erythrocyte distribution width (RBC) [Entitic vol] 37.7 fL 35.1-43.9 [facility] Hematocrit Auto (Bld) [Volum e fraction]Ordered By: Bull Gusman on 01-03-2024 Hematocrit (Bld) [Volume fraction] 35.2 % 40-54 [facility] Immature granulocytes/100 WB C Auto (Bld)Ordered By: Bull Gusman on 01-03-2024 Immature granulocytes/100 WBC (Bld) 0.600 % 0.0-0.9 [facility] Comment on above: IG% - Immature Granu locytes (promyelocytes, myelocytes and metamyelocytes) > 1% indicates that a LEFT SHIFT is Present. Laboratory - Chemistry and C hemistry - challengeOrdered By: Judy Guan on 01-03-2024 CO2 [Moles/Vol] 24.0 mmol/L 21.0-32.0 [facility] Urea nitrogen/Creatinine [Mass ratio] 12.9 mg/mg 10-20 [facility] Laboratory - Hematology and Cell countsOrdered By: Bull Gusman on 01-03-2024 MCH (RBC) [Entitic mass] 31.6 pg 27.0-32.0 [facility] MCHC (RBC) [Mass/Vol] 35.8 g/dL 32-36 [facility] Nucleated RBC/100 WBC (Bld) [Ratio] 0 % 0-5 [facility] Platelet mean volume (Bld) [Entitic vol] 10.0 fL 6.2-12.0 [facility] Platelets (Bld) [#/Vol] 174 10*3/uL 150-450 [facility] No Panel InformationOrdered By: Judy Guan on 01-03-2024 Estimated Creatinine Clearance Calc 125.10 ml/min [facility] Estimated GFR (MDRD) Amer 195 mL/min >60 [facility] Comment on above: GFR Calc Estimated GFR (MDRD) Non-Af Amer 161 mL/min >60 [facility] Comment on above: Non- GFR Calc RBC Auto (Bld) [#/Vol]Ordere d By: Bull Gusman on 01-03-2024 RBC (Bld) [#/Vol] 3.99 10*6/uL 4.6-6.2 [facility] Serum or plasma calcium adelso urement (mass/volume)Ordered By: Judy Guan on 01-03-2024 Calcium [Mass/Vol] 8.2 mg/dL 8.5-10.1 [facility] Serum or plasma creatinine m easurement (mass/volume)Ordered By: Judy Guan on 01-03-2024 Creatinine [Mass/Vol] 0.54 mg/dL 0.70-1.30 [facility] Comment on above: The validity of the calculated GFR & GFRAA in patients over 70 years has not been determined. Clinical correlation is essential. Serum or plasma urea nitroge n measurement (mass/volume)Ordered By: Judy Guan on 01-03-2024 Urea nitrogen [Mass/Vol] 7 mg/dL 7-18 [facility] Thin prep Papanicolaou smear with manual screeningOrdered By: Judy Guan on 01-03-2024 Thin prep Papanicolaou smear with manual screening 10 5-15 [facility] Basophil percentageOrdered B y: Josee Guan on 01-02-2024 Basophil percentage 2.5 mg/dL 2.5-4.9 [facility] Bilirubin [Mass/Vol] 1.10 mg/dL 0.20-1.00 [facility] Comment on above: For patients on eltr ombopag therapy, use of Dimension [place] TBIL is not recommended. Protein [Mass/Vol] 6.9 g/dL 6.4-8.2 [facility] Laboratory - Chemistry and C hemistry - challengeOrdered By: Judy Guan on 01-02-2024 Sodium (U) [Moles/Vol] 52 mmol/L Not Establ. [facility] Laboratory - Chemistry and C hemistry - challengeOrdered By: Josee Guan on 01-02-2024 Albumin/Globulin [Mass ratio] 0.9 {ratio} 0.9-2.4 [facility] ALP [Catalytic activity/Vol] 105 U/L 45-117 [facility] ALT [Catalytic activity/Vol] 30 U/L 16-61 [facility] Globulin (S) [Mass/Vol] 3.6 g/dL 2.2-4.2 [facility] Magnesium [Mass/Vol] 2.0 mg/dL 1.6-2.6 [facility] Serum or plasma thyroid stim ulating hormone (TSH) measurement (units/volume)Ordered By: Josee Guan on 01-02-2024 TSH Qn 0.63 uIU/mL 0.358-3.74 [facility] Thin prep Papanicolaou smear with manual screeningOrdered By: Josee Guan on 01-02-2024 Thin prep Papanicolaou smear with manual screening 3.3 g/dL 3.2-5.0 [facility] Thin prep Papanicolaou smear with manual screening 25 U/L 15-37 [facility] Absolute lymphocyte countOrd ered By: Josee Guan on 01-01-2024 Lymphocytes Auto (Unsp spec) [#/Vol] 1.08 10*3/uL 0.83-4.51 [facility] Automated lymphocyte count a s percentage of total leukocytesOrdered By: Josee Guan on 01-01-2024 Lymphocytes/100 WBC Auto (Unsp spec) 15.7 % 19-41 [facility] Basophil percentageOrdered B y: Josee Guan on 01-01-2024 Basophils/100 WBC (Bld) 0.3 % 0-1 [facility] Eosinophils/100 WBC (Bld) 0.4 % 0-5 [facility] Hemoglobin (Bld) [Mass/Vol] 13.2 g/dL 13.0-16.5 [facility] Monocytes/100 WBC (Bld) 8.7 % 0-10 [facility] Neutrophils (Bld) [#/Vol] 5.1 10*3/uL 2.0-7.7 [facility] Neutrophils/100 WBC (Bld) 74.5 % 47-70 [facility] WBC (Bld) [#/Vol] 6.9 10*3/uL 4.4-11.0 [facility] Basophil percentageOrdered B y: Dereck Delvalle on 01-01-2024 Chloride [Moles/Vol] 83 mmol/L 98-107 [facility] Glucose [Mass/Vol] 121 mg/dL 74-106 [facility] Comment on above: Fasting Glucose resu lt from 100 to 125 mg/dL suggests IMPAIRED HOMEOSTASIS per A.D.A. criteria. Potassium [Moles/Vol] 4.3 mmol/L 3.5-5.1 [facility] Comment on above: Moderate Hemolysis, Result may be falsely increased. Sodium [Moles/Vol] 115 mmol/L 136-145 [facility] Comment on above: Critical Result(s) C alled at: 13:06:55 01/01/2024 by: Aurea Connor to Sofía Veronica RN (ED). Results read back by same. Determination of erythrocyte mean corpuscular volume (MCV)Ordered By: Josee Guan on 01-01-2024 MCV (RBC) [Entitic vol] 89.5 fL 80-94 [facility] Erythrocyte distribution wid th ratioOrdered By: Josee Guan on 01-01-2024 Erythrocyte distribution width (RBC) [Ratio] 12.1 % 11.6-14.6 [facility] Erythrocyte distribution wid th standard deviationOrdered By: Josee Guan on 01-01-2024 Erythrocyte distribution width (RBC) [Entitic vol] 39.8 fL 35.1-43.9 [facility] Hematocrit Auto (Bld) [Volum e fraction]Ordered By: Josee Guan on 01-01-2024 Hematocrit (Bld) [Volume fraction] 35.9 % 40-54 [facility] Immature granulocytes/100 WB C Auto (Bld)Ordered By: Josee Guan on 01-01-2024 Immature granulocytes/100 WBC (Bld) 0.400 % 0.0-0.9 [facility] Comment on above: IG% - Immature Granu locytes (promyelocytes, myelocytes and metamyelocytes) > 1% indicates that a LEFT SHIFT is Present. Laboratory - Chemistry and C hemistry - challengeOrdered By: Dereck Delvalle on 01-01-2024 CO2 [Moles/Vol] 26.0 mmol/L 21.0-32.0 [facility] Urea nitrogen/Creatinine [Mass ratio] 11.8 mg/mg 10-20 [facility] Laboratory - Hematology and Cell countsOrdered By: Josee Guan on 01-01-2024 MCH (RBC) [Entitic mass] 32.9 pg 27.0-32.0 [facility] MCHC (RBC) [Mass/Vol] 36.8 g/dL 32-36 [facility] Nucleated RBC/100 WBC (Bld) [Ratio] 0.3 % 0-5 [facility] Platelet mean volume (Bld) [Entitic vol] 11.5 fL 6.2-12.0 [facility] Platelets (Bld) [#/Vol] 211 10*3/uL 150-450 [facility] No Panel InformationOrdered By: Dereck Delvalle on 01-01-2024 Estimated Creatinine Clearance Calc 101.99 ml/min [facility] Estimated GFR (MDRD) Amer 151 mL/min >60 [facility] Comment on above: GFR Calc Estimated GFR (MDRD) Non-Af Amer 125 mL/min >60 [facility] Comment on above: Non- GFR Calc RBC Auto (Bld) [#/Vol]Ordere d By: Josee Gaun on 01-01-2024 RBC (Bld) [#/Vol] 4.01 10*6/uL 4.6-6.2 [facility] Serum or plasma calcium adelso urement (mass/volume)Ordered By: Dereck Delvalle on 01-01-2024 Calcium [Mass/Vol] 8.3 mg/dL 8.5-10.1 [facility] Serum or plasma creatinine m easurement (mass/volume)Ordered By: Dereck Delvalle on 01-01-2024 Creatinine [Mass/Vol] 0.68 mg/dL 0.70-1.30 [facility] Comment on above: The validity of the calculated GFR & GFRAA in patients over 70 years has not been determined. Clinical correlation is essential. Serum or plasma urea nitroge n measurement (mass/volume)Ordered By: Dereck Delvalle on 01-01-2024 Urea nitrogen [Mass/Vol] 8 mg/dL 7-18 [facility] Thin prep Papanicolaou smear with manual screeningOrdered By: Dereck Delvalle on 01-01-2024 Thin prep Papanicolaou smear with manual screening 241 mOsm/KG 280-301 [facility] Thin prep Papanicolaou smear with manual screening 6 5-15 [facility] Urine osmolality measurement Ordered By: Dereckgaye Delvalle on 01-01-2024 Osmolality (U) [Osmolality] 351 mOsm/KG >50 [facility] Comment on above: Normal Urine Referen ce Ranges Random: 50 - 1200 mOsm/kg H20 depending on fluid intake Random: >850 mOsm/kg after 12 hour fluid restriction 24 hour: ~300 - 900 mOsm/kg H2O Laboratory - Microbiology an d Antimicrobial susceptibilityon 12-29-2023 SARS-CoV-2 (COVID-19) RNA RADHA+probe Ql (Unsp spec) Not detected [facility] No Panel Informationon 12-28 Influenza Types A,B Rapid (Clinic) Detected [facility] Basophil percentageOrdered B y: aKrla Boyer on 10-09-2023 Bilirubin [Mass/Vol] 0.90 mg/dL 0.20-1.00 [facility] Comment on above: For patients on eltr ombopag therapy, use of Dimension [place] TBIL is not recommended. Cholesterol [Mass/Vol] 161 mg/dL <200 [facility] Comment on above: <200 mg/dL Desirable 200-240 mg/dL Borderline >240 mg/dL High Risk Protein [Mass/Vol] 7.6 g/dL 6.4-8.2 [facility] Triglyceride [Mass/Vol] 49 mg/dL <199 [facility] Comment on above: The drugs N-Acetylcy steine and Metamizole may falsely depress this assay.Serum Triglycerides Reference Interval Normal <150 mg/dL Borderline high 150 - 199 mg/dL High 200 - 499 mg/dL Very High > or = 500 mg/dL Direct bilirubinOrdered By: Karla Boyer on 10-09-2023 Bilirubin.direct [Mass/Vol] 0.24 mg/dL 0.00-0.30 [facility] Laboratory - Chemistry and C hemistry - challengeOrdered By: Karla Boyer on 10-09-2023 ALP [Catalytic activity/Vol] 80 U/L 45-117 [facility] ALT [Catalytic activity/Vol] 24 U/L 16-61 [facility] Globulin (S) [Mass/Vol] 3.9 g/dL 2.2-4.2 [facility] Serum or plasma albumin adelso urement (mass/volume)Ordered By: Karla Boyer on 10-09-2023 Albumin [Mass/Vol] 3.7 g/dL 3.2-5.0 [facility] Serum or plasma cholesterol in HDL measurement (mass/volume)Ordered By: Karla Boyer on 10-09-2023 Cholesterol in HDL [Mass/Vol] 67 mg/dL >40 [facility] Comment on above: The drugs N-Acetylcy steine and Metamizole may falsely depress this assay. Reference Range HDL <40 mg/dL Low HDL Cholesterol HDL >or= 60 mg/dL High HDL Cholesterol Serum or plasma cholesterol in VLDL measurement (mass/volume)Ordered By: Karla Boyer on 10-09-2023 Cholesterol in VLDL [Mass/Vol] 10 mg/dL 5-40 [facility] Serum or plasma low density lipoprotein (LDL) cholesterol measurement (mass/volume)Ordered By: Karla Boyer on 10-09-2023 Cholesterol in LDL [Mass/Vol] 84 mg/dL 0-130 [facility] Thin prep Papanicolaou smear with manual screeningOrdered By: Karla Boyer on 10-09-2023 Thin prep Papanicolaou smear with manual screening 23 U/L 15-37 [facility] Basophil percentageOrdered B y: Judy Guan on 10-04-2023 Chloride [Moles/Vol] 96 mmol/L 98-107 [facility] Glucose [Mass/Vol] 94 mg/dL 74-106 [facility] Potassium [Moles/Vol] 4.3 mmol/L 3.5-5.1 [facility] Sodium [Moles/Vol] 129 mmol/L 136-145 [facility] Laboratory - Chemistry and C hemistry - challengeOrdered By: Judy Guan on 10-04-2023 CO2 [Moles/Vol] 26.0 mmol/L 21.0-32.0 [facility] Urea nitrogen/Creatinine [Mass ratio] 15.1 mg/mg 10-20 [facility] No Panel InformationOrdered By: Judy Guan on 10-04-2023 Estimated GFR (MDRD) Amer 126 mL/min >60 [facility] Comment on above: GFR Calc Estimated GFR (MDRD) Non-Af Amer 104 mL/min >60 [facility] Comment on above: Non- GFR Calc Serum or plasma calcium adelso urement (mass/volume)Ordered By: Judy Guan on 10-04-2023 Calcium [Mass/Vol] 8.8 mg/dL 8.5-10.1 [facility] Serum or plasma creatinine m easurement (mass/volume)Ordered By: Judy Guan on 10-04-2023 Creatinine [Mass/Vol] 0.80 mg/dL 0.70-1.30 [facility] Comment on above: The validity of the calculated GFR & GFRAA in patients over 70 years has not been determined. Clinical correlation is essential. Serum or plasma urea nitroge n measurement (mass/volume)Ordered By: Judy Guan on 10-04-2023 Urea nitrogen [Mass/Vol] 12 mg/dL 7-18 [facility] Thin prep Papanicolaou smear with manual screeningOrdered By: Judy Guan on 10-04-2023 Thin prep Papanicolaou smear with manual screening 7 5-15 [facility] Basophil percentageOrdered B y: Judy Guan on 06-10-2023 Chloride [Moles/Vol] 95 mmol/L 98-107 [facility] Glucose [Mass/Vol] 101 mg/dL 74-106 [facility] Comment on above: Fasting Glucose resu lt from 100 to 125 mg/dL suggests IMPAIRED HOMEOSTASIS per A.D.A. criteria. Potassium [Moles/Vol] 4.4 mmol/L 3.5-5.1 [facility] Sodium [Moles/Vol] 128 mmol/L 136-145 [facility] Laboratory - Chemistry and C hemistry - challengeOrdered By: Judy Guan on 06-10-2023 CO2 [Moles/Vol] 27.0 mmol/L 21.0-32.0 [facility] Urea nitrogen/Creatinine [Mass ratio] 13.8 mg/mg 10-20 [facility] No Panel InformationOrdered By: Judy Guan on 06-10-2023 Estimated GFR (MDRD) Amer 114 mL/min >60 [facility] Comment on above: GFR Calc Estimated GFR (MDRD) Non-Af Amer 94 mL/min >60 [facility] Comment on above: Non- GFR Calc Serum or plasma calcium adelso urement (mass/volume)Ordered By: Judy Guan on 06-10-2023 Calcium [Mass/Vol] 9.3 mg/dL 8.5-10.1 [facility] Serum or plasma creatinine m easurement (mass/volume)Ordered By: Judy Guan on 06-10-2023 Creatinine [Mass/Vol] 0.87 mg/dL 0.70-1.30 [facility] Comment on above: The validity of the calculated GFR & GFRAA in patients over 70 years has not been determined. Clinical correlation is essential. Serum or plasma urea nitroge n measurement (mass/volume)Ordered By: Judy Guan on 06-10-2023 Urea nitrogen [Mass/Vol] 12 mg/dL 7-18 [facility] Thin prep Papanicolaou smear with manual screeningOrdered By: Judy uGan on 06-10-2023 Thin prep Papanicolaou smear with manual screening 6 5-15 [facility] Basophil percentageOrdered B y: Dr. Blair on 03-04-2023 Bilirubin [Mass/Vol] 0.60 mg/dL 0.20-1.00 [facility] Comment on above: For patients on eltr ombopag therapy, use of Dimension [place] TBIL is not recommended. Chloride [Moles/Vol] 96 mmol/L 98-107 [facility] Cholesterol [Mass/Vol] 149 mg/dL <200 [facility] Comment on above: <200 mg/dL Desirable 200-240 mg/dL Borderline >240 mg/dL High Risk Glucose [Mass/Vol] 98 mg/dL 74-106 [facility] Potassium [Moles/Vol] 4.3 mmol/L 3.5-5.1 [facility] Protein [Mass/Vol] 7.2 g/dL 6.4-8.2 [facility] Sodium [Moles/Vol] 130 mmol/L 136-145 [facility] Triglyceride [Mass/Vol] 55 mg/dL <199 [facility] Comment on above: The drugs N-Acetylcy steine and Metamizole may falsely depress this assay.Serum Triglycerides Reference Interval Normal <150 mg/dL Borderline high 150 - 199 mg/dL High 200 - 499 mg/dL Very High > or = 500 mg/dL Direct bilirubinOrdered By: Dr. Blair on 03-04-2023 Bilirubin.direct [Mass/Vol] 0.21 mg/dL 0.00-0.30 [facility] Laboratory - Chemistry and C hemistry - challengeOrdered By: Dr. Blair on 03-04-2023 ALP [Catalytic activity/Vol] 78 U/L 45-117 [facility] ALT [Catalytic activity/Vol] 27 U/L 16-61 [facility] CO2 [Moles/Vol] 29.0 mmol/L 21.0-32.0 [facility] Globulin (S) [Mass/Vol] 3.5 g/dL 2.2-4.2 [facility] Urea nitrogen/Creatinine [Mass ratio] 15.3 mg/mg 10-20 [facility] No Panel InformationOrdered By: Dr. Blair on 03-04-2023 Estimated GFR (MDRD) Amer 129 mL/min >60 [facility] Comment on above: GFR Calc Estimated GFR (MDRD) Non-Af Amer 106 mL/min >60 [facility] Comment on above: Non- GFR Calc Serum or plasma albumin adelso urement (mass/volume)Ordered By: Dr. Blair on 03-04-2023 Albumin [Mass/Vol] 3.7 g/dL 3.2-5.0 [facility] Serum or plasma calcium adelso urement (mass/volume)Ordered By: Dr. Blair on 03-04-2023 Calcium [Mass/Vol] 9.2 mg/dL 8.5-10.1 [facility] Serum or plasma cholesterol in HDL measurement (mass/volume)Ordered By: Dr. Blair on 03-04-2023 Cholesterol in HDL [Mass/Vol] 62 mg/dL >40 [facility] Comment on above: The drugs N-Acetylcy steine and Metamizole may falsely depress this assay. Reference Range HDL <40 mg/dL Low HDL Cholesterol HDL >or= 60 mg/dL High HDL Cholesterol Serum or plasma cholesterol in VLDL measurement (mass/volume)Ordered By: Dr. Blair on 03-04-2023 Cholesterol in VLDL [Mass/Vol] 11 mg/dL 5-40 [facility] Serum or plasma creatinine m easurement (mass/volume)Ordered By: Dr. Blair on 03-04-2023 Creatinine [Mass/Vol] 0.78 mg/dL 0.70-1.30 [facility] Comment on above: The validity of the calculated GFR & GFRAA in patients over 70 years has not been determined. Clinical correlation is essential. Serum or plasma low density lipoprotein (LDL) cholesterol measurement (mass/volume)Ordered By: Dr. Blair on 03-04-2023 Cholesterol in LDL [Mass/Vol] 76 mg/dL 0-130 [facility] Serum or plasma urea nitroge n measurement (mass/volume)Ordered By: Dr. Blair on 03-04-2023 Urea nitrogen [Mass/Vol] 12 mg/dL 7-18 [facility] Thin prep Papanicolaou smear with manual screeningOrdered By: Dr. Blair on 03-04-2023 Thin prep Papanicolaou smear with manual screening 19 U/L 15-37 [facility] Thin prep Papanicolaou smear with manual screening 5 5-15 [facility] Basophil percentageon 2022 Chloride [Moles/Vol] 97 mmol/L 98-107 [facility] Work Phone: Glucose [Mass/Vol] 98 mg/dL 74-106 [facility] Work Phone: Potassium [Moles/Vol] 4.2 mmol/L 3.5-5.1 [facility] Work Phone: Sodium [Moles/Vol] 129 mmol/L 136-145 [facility] Work Phone: Laboratory - Chemistry and C hemistry - challengeon 11-07-2022 CO2 [Moles/Vol] 25.0 mmol/L 21.0-32.0 [facility] Work Phone: Urea nitrogen/Creatinine [Mass ratio] 16.1 mg/mg 10-20 [facility] Work Phone: No Panel Informationon 11-07 Estimated GFR (MDRD) Amer 136 mL/min >60 [facility] Work Phone: Comment on above: GFR Calc Estimated GFR (MDRD) Non-Af Amer 112 mL/min >60 [facility] Work Phone: Comment on above: Non- GFR Calc Serum or plasma calcium adelso urement (mass/volume)on 11-07-2022 Calcium [Mass/Vol] 9.1 mg/dL 8.5-10.1 [facility] Work Phone: Serum or plasma creatinine m easurement (mass/volume)on 11-07-2022 Creatinine [Mass/Vol] 0.75 mg/dL 0.70-1.30 [facility] Work Phone: Comment on above: The validity of the calculated GFR & GFRAA in patients over 70 years has not been determined. Clinical correlation is essential. Serum or plasma urea nitroge n measurement (mass/volume)on 11-07-2022 Urea nitrogen [Mass/Vol] 12 mg/dL 7-18 [facility] Work Phone: [phone] Thin prep Papanicolaou smear with manual screeningon 11-07-2022 Thin prep Papanicolaou smear with manual screening 7 5-15 [facility] Work Phone: [phone] Basophil percentageon 2021 Bilirubin [Mass/Vol] 0.70 mg/dL 0.20-1.00 [facility] Work Phone: Comment on above: For patients on eltr ombopag therapy, use of Dimension [place] TBIL is not recommended. Cholesterol [Mass/Vol] 158 mg/dL <200 [facility] Work Phone: Comment on above: <200 mg/dL Desirable 200-240 mg/dL Borderline >240 mg/dL High Risk Protein [Mass/Vol] 7.4 g/dL 6.4-8.2 [facility] Work Phone: [phone] Triglyceride [Mass/Vol] 59 mg/dL <199 [facility] Work Phone: Comment on above: The drugs N-Acetylcy steine and Metamizole may falsely depress this assay.Serum Triglycerides Reference Interval Normal <150 mg/dL Borderline high 150 - 199 mg/dL High 200 - 499 mg/dL Very High > or = 500 mg/dL Direct bilirubinon Bilirubin.direct [Mass/Vol] 0.20 mg/dL 0.00-0.30 [facility] Work Phone: [phone] Laboratory - Chemistry and C hemistry - challengeon 07-09-2022 ALP [Catalytic activity/Vol] 84 U/L 45-117 [facility] Work Phone: [phone] ALT [Catalytic activity/Vol] 25 U/L 16-61 [facility] Work Phone: [phone] Globulin (S) [Mass/Vol] 3.7 g/dL 2.2-4.2 [facility] Work Phone: [phone] Serum or plasma albumin adelso urement (mass/volume)on 07-09-2022 Albumin [Mass/Vol] 3.7 g/dL 3.2-5.0 [facility] Work Phone: [phone] Serum or plasma cholesterol in HDL measurement (mass/volume)on 07-09-2022 Cholesterol in HDL [Mass/Vol] 62 mg/dL >40 [facility] Work Phone: Comment on above: The drugs N-Acetylcy steine and Metamizole may falsely depress this assay. Reference Range HDL <40 mg/dL Low HDL Cholesterol HDL >or= 60 mg/dL High HDL Cholesterol Serum or plasma cholesterol in VLDL measurement (mass/volume)on 07-09-2022 Cholesterol in VLDL [Mass/Vol] 12 mg/dL 5-40 [facility] Work Phone: [phone] Serum or plasma low density lipoprotein (LDL) cholesterol measurement (mass/volume)on 07-09-2022 Cholesterol in LDL [Mass/Vol] 84 mg/dL 0-130 [facility] Work Phone: [phone] Thin prep Papanicolaou smear with manual screeningon 07-09-2022 Thin prep Papanicolaou smear with manual screening 20 U/L 15-37 [facility] Work Phone: [phone] Basophil percentageon 2021 Chloride [Moles/Vol] 94 mmol/L 98-107 [facility] Work Phone: [phone] Glucose [Mass/Vol] 100 mg/dL 74-106 [facility] Work Phone: [phone] Comment on above: Fasting Glucose resu lt from 100 to 125 mg/dL suggests IMPAIRED HOMEOSTASIS per A.D.A. criteria. Potassium [Moles/Vol] 4.0 mmol/L 3.5-5.1 [facility] Work Phone: [phone] Sodium [Moles/Vol] 129 mmol/L 136-145 [facility] Work Phone: Laboratory - Chemistry and C hemistry - challengeon 02-13-2022 CO2 [Moles/Vol] 27.0 mmol/L 21.0-32.0 [facility] Work Phone: Urea nitrogen/Creatinine [Mass ratio] 16.3 mg/mg 10-20 [facility] Work Phone: No Panel Informationon 02-13 Estimated GFR (MDRD) Amer 107 mL/min >60 [facility] Work Phone: Comment on above: GFR Calc Estimated GFR (MDRD) Non-Af Amer 89 mL/min >60 [facility] Work Phone: Comment on above: Non- GFR Calc Serum or plasma calcium adelso urement (mass/volume)on 02-13-2022 Calcium [Mass/Vol] 8.9 mg/dL 8.5-10.1 [facility] Work Phone: Serum or plasma creatinine m easurement (mass/volume)on 02-13-2022 Creatinine [Mass/Vol] 0.92 mg/dL 0.70-1.30 [facility] Work Phone: Comment on above: The validity of the calculated GFR & GFRAA in patients over 70 years has not been determined. Clinical correlation is essential. Serum or plasma urea nitroge n measurement (mass/volume)on 02-13-2022 Urea nitrogen [Mass/Vol] 15 mg/dL 7-18 [facility] Work Phone: Thin prep Papanicolaou smear with manual screeningon 02-13-2022 Thin prep Papanicolaou smear with manual screening 8 5-15 [facility] Work Phone: Basophil percentageon 2021 Chloride [Moles/Vol] 93 mmol/L 98-107 [facility] Work Phone: Glucose [Mass/Vol] 102 mg/dL 74-106 [facility] Work Phone: Comment on above: Fasting Glucose resu lt from 100 to 125 mg/dL suggests IMPAIRED HOMEOSTASIS per A.D.A. criteria. Potassium [Moles/Vol] 4.2 mmol/L 3.5-5.1 [facility] Work Phone: Sodium [Moles/Vol] 126 mmol/L 136-145 [facility] Work Phone: Laboratory - Chemistry and C hemistry - challengeon 11-16-2021 CO2 [Moles/Vol] 26.0 mmol/L 21.0-32.0 [facility] Work Phone: Urea nitrogen/Creatinine [Mass ratio] 12.6 mg/mg - [facility] Work Phone: No Panel Informationon 11-16 Estimated GFR (MDRD) Amer 86 mL/min >60 [facility] Work Phone: Comment on above: GFR Calc Estimated GFR (MDRD) Non-Af Amer 71 mL/min >60 [facility] Work Phone: Comment on above: Non- GFR Calc Serum or plasma calcium adelso urement (mass/volume)on 11-16-2021 Calcium [Mass/Vol] 8.6 mg/dL 8.5-10.1 [facility] Work Phone: Serum or plasma creatinine m easurement (mass/volume)on 11-16-2021 Creatinine [Mass/Vol] 1.11 mg/dL 0.70-1.30 [facility] Work Phone: Comment on above: The validity of the calculated GFR & GFRAA in patients over 70 years has not been determined. Clinical correlation is essential. Serum or plasma urea nitroge n measurement (mass/volume)on 11-16-2021 Urea nitrogen [Mass/Vol] 14 mg/dL 7-18 [facility] Work Phone: Thin prep Papanicolaou smear with manual screeningon 11-16-2021 Thin prep Papanicolaou smear with manual screening 7 5-15 [facility] Work Phone: Basophil percentageon 2021 Chloride [Moles/Vol] 88 mmol/L 98-107 [facility] Work Phone: Glucose [Mass/Vol] 91 mg/dL 74-106 [facility] Work Phone: Comment on above: Please note revised GLUCOSE reference range effective 2017. Potassium [Moles/Vol] 4.0 mmol/L 3.5-5.1 [facility] Work Phone: Sodium [Moles/Vol] 123 mmol/L 136-145 [facility] Work Phone: Laboratory - Chemistry and C hemistry - challengeon 11-02-2021 CO2 [Moles/Vol] 26.0 mmol/L 21.0-32.0 [facility] Work Phone: Urea nitrogen/Creatinine [Mass ratio] 11.9 mg/mg 10-20 [facility] Work Phone: No Panel Informationon 11-02 Estimated GFR (MDRD) Amer 134 mL/min >60 [facility] Work Phone: Comment on above: GFR Calc Estimated GFR (MDRD) Non-Af Amer 110 mL/min >60 [facility] Work Phone: Comment on above: Non- GFR Calc Serum or plasma calcium adelso urement (mass/volume)on 11-02-2021 Calcium [Mass/Vol] 8.8 mg/dL 8.5-10.1 [facility] Work Phone: Serum or plasma creatinine m easurement (mass/volume)on 11-02-2021 Creatinine [Mass/Vol] 0.76 mg/dL 0.70-1.30 [facility] Work Phone: Comment on above: The validity of the calculated GFR & GFRAA in patients over 70 years has not been determined. Clinical correlation is essential. Serum or plasma urea nitroge n measurement (mass/volume)on 11-02-2021 Urea nitrogen [Mass/Vol] 9 mg/dL 7-18 [facility] Work Phone: Thin prep Papanicolaou smear with manual screeningon 11-02-2021 Thin prep Papanicolaou smear with manual screening 9 5-15 [facility] Work Phone: Basophil percentageon 2020 Chloride [Moles/Vol] 88 mmol/L 98-107 [facility] Work Phone: Glucose [Mass/Vol] 101 mg/dL 74-106 [facility] Work Phone: Comment on above: Fasting Glucose resu lt from 100 to 125 mg/dL suggests IMPAIRED HOMEOSTASIS per A.D.A. criteria.Please note revised GLUCOSE reference range effective 2017. Potassium [Moles/Vol] 4.1 mmol/L 3.5-5.1 [facility] Work Phone: Sodium [Moles/Vol] 121 mmol/L 136-145 [facility] Work Phone: Laboratory - Chemistry and C hemistry - challengeon 10-26-2021 CO2 [Moles/Vol] 25.0 mmol/L 21.0-32.0 [facility] Work Phone: Urea nitrogen/Creatinine [Mass ratio] 10.9 mg/mg 10-20 [facility] Work Phone: No Panel Informationon 10-26 Estimated GFR (MDRD) Amer 139 mL/min >60 [facility] Work Phone: Comment on above: GFR Calc Estimated GFR (MDRD) Non-Af Amer 115 mL/min >60 [facility] Work Phone: Comment on above: Non- GFR Calc Serum or plasma calcium adelso urement (mass/volume)on 10-26-2021 Calcium [Mass/Vol] 9.0 mg/dL 8.5-10.1 [facility] Work Phone: Serum or plasma creatinine m easurement (mass/volume)on 10-26-2021 Creatinine [Mass/Vol] 0.73 mg/dL 0.70-1.30 [facility] Work Phone: Comment on above: The validity of the calculated GFR & GFRAA in patients over 70 years has not been determined. Clinical correlation is essential. Serum or plasma urea nitroge n measurement (mass/volume)on 10-26-2021 Urea nitrogen [Mass/Vol] 8 mg/dL 7-18 [facility] Work Phone: Thin prep Papanicolaou smear with manual screeningon 10-26-2021 Thin prep Papanicolaou smear with manual screening 8 5-15 [facility] Work Phone: Laboratory - Microbiology an d Antimicrobial susceptibilityon 10-25-2021 SARS-CoV-2 (COVID-19) RNA RADHA+probe Ql (Unsp spec) Negative Not Detect [facility] Work Phone: Comment on above: Normal Reference Ran ge: Not DetectedMethod:(RT-PCR) real-time reverse transcriptase PCRLuminex Qardio Instrument*The Food and Drug Administration (FDA) has issued an Emergency Use Authorization (EAU) for the Qardio SARS-CoV-2 Assay for the rapid detection of [...] current medications (procedure) Done Invalid Interpretation Code [facility] Work Phone: [phone] Fall risk assessment No Invalid Interpretation Code [facility] Work Phone: [phone] Protein mass conc Done [facility] Phone: [phone] 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 Left ventricular Ejection fraction 55 % Invalid Interpretation Code [facility] Phone: [phone] Lab Report: Lipid Profileon 05-03-2017 Cholesterol 167 mg/dL Invalid Interpretation Code 200 [facility] Work Phone: [phone] HDL Cholesterol 68 mg/dL Invalid Interpretation Code [facility] Work Phone: [phone] LDL Cholesterol 88 mg/dL Invalid Interpretation Code 0-130 [facility] Work Phone: [phone] Triglyceride 55 mg/dL Invalid Interpretation Code [facility] Work Phone: [phone] very low density lipoproteins 11 mg/dL Invalid Interpretation Code 5-40 [facility] Work Phone: [phone] Lab Report: Liver Profileon 05-03-2017 Alanine aminotransferase (ALT) 25 U/L Invalid Interpretation Code 12-78 [facility] Work Phone: [phone] Albumin 3.8 g/dL Invalid Interpretation Code 3.4-5.0 [facility] Work Phone: [phone] Alkaline phosphatase (ALP) 87 U/L Invalid Interpretation Code 45-117 [facility] Phone: [phone] ALP enzyme act/vol (Bld) 87 U/L 45-117 [facility] Work Phone: [phone] Aspartate aminotransferase (AST) 18 U/L Invalid Interpretation Code 15-37 [facility] Phone: [phone] Bilirubin (direct) 0.19 mg/dL Invalid Interpretation Code 0.00-0.30 [facility] Work Phone: [phone] Bilirubin (total) 0.70 mg/dL Invalid Interpretation Code 0.20-1.00 [facility] Phone: [phone] Globulin 3.9 g/dL High 2.3-3.5 [facility] Work Phone: [phone] Globulin mass conc (S) 3.9 g/dL High 2.3-3.5 [facility] Work Phone: [phone] Protein 7.7 g/dL Invalid Interpretation Code 6.4-8.2 [facility] Phone: [phone] Office Visiton 11-16-2016 Documentation of current medications (procedure) Done Invalid Interpretation Code [facility] Phone: [phone] Protein mass conc Done [facility] Work Phone: [phone] Tobacco smoking status NHIS Former smoker [facility] Work Phone: Tobacco use [facility] Former smoker Invalid Interpretation Code [facility] Work Phone: Replaced Document: Judy SALMON Observationson 11-16-2016 EKG QRS axis 64 deg Invalid Interpretation Code [facility] Work Phone: electrocardiogram interpretation Sinus Rhythm WITHIN NORMAL LIMITS Invalid Interpretation Code [facility] Work Phone: GE use only - for [employer] import when terms are not otherwise specified 389 ms Invalid Interpretation Code [facility] Work Phone: Interpretation Sinus Rhythm WITHIN NORMAL LIMITS Invalid Interpretation Code [facility] Work Phone: P Cougar 54 deg Invalid Interpretation Code [facility] Work Phone: P wave axis, electrocardiogram 54 deg Invalid Interpretation Code [facility] Work Phone: FL Interval 184 ms Invalid Interpretation Code [facility] Work Phone: FL interval, electrocardiogram 184 ms Invalid Interpretation Code [facility] Work Phone: Pulse (Heart Rate) 64 /min Invalid Interpretation Code [facility] Work Phone: QRS axis, electrocardiogram 64 deg Invalid Interpretation Code [facility] Work Phone: QRS Duration 100 ms Invalid Interpretation Code [facility] Work Phone: QRS duration, electrocardiogram 100 ms Invalid Interpretation Code [facility] Work Phone: QT Interval new path ms Invalid Interpretation Code [facility] Work Phone: QT interval, electrocardiogram new path ms Invalid Interpretation Code [facility] Work Phone: QTc Rausch 389 ms Invalid Interpretation Code [facility] Work Phone: T Cougar 53 deg Invalid Interpretation Code [facility] Work Phone: T wave axis, electrocardiogram 53 deg Invalid Interpretation Code [facility] Work Phone: Clinical 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 Left ventricular Ejection fraction 55 % Invalid Interpretation Code [facility] Work Phone: [phone] Office Visit: Cold / Flu sym ptomson 05-17-2016 Tobacco smoking status NHIS Never Invalid Interpretation Code [facility] Work Phone: [phone] Lab Report: (P) Urinalysis, Completeon 04-27-2016 Albumin Ql (U) 15 High Negative [facility] Work Phone: [phone] Bilirubin Ql (U) Negative Invalid Interpretation Code Negative [facility] Work Phone: [phone] Ketones mass conc (U) Negative Negative [facility] Work Phone: [phone] NITRITE UR Negative Invalid Interpretation Code Negative [facility] Work Phone: [phone] Nitrite Urine Negative Invalid Interpretation Code Negative [facility] Work Phone: [phone] Occult Blood, urine 150 High Negative [facility] Work Phone: [phone] OCCULT BLOOD-UR 150 High Negative [facility] Work Phone: [phone] pH (U) 7.0 [pH] 5.0 - 8.0 [facility] Work Phone: [phone] specific gravity, urine 1.010 Invalid Interpretation Code 1.002-1.030 [facility] Work Phone: [phone] Urine, bilirubin presence Negative Invalid Interpretation Code Negative [facility] Work Phone: [phone] Urine, clarity Clear Invalid Interpretation Code Clear [facility] Work Phone: [phone] Urine, color Yellow Invalid Interpretation Code Yellow [facility] Work Phone: [phone] Urine, glucose presence Normal mg/dl Invalid Interpretation Code Normal [facility] Work Phone: [phone] Urine, ketones presence Negative Invalid Interpretation Code Negative [facility] Work Phone: [phone] Urine, leukocyte esterase presence 100 High Negative [facility] Work Phone: [phone] Urine, pH 7.0 [pH] Invalid Interpretation Code 5.0 - 8.0 [facility] Work Phone: [phone] Urine, protein 15 mg/dL High Negative [facility] Work Phone: [phone] UROBILI Normal mg/dl Invalid Interpretation Code Normal [facility] Work Phone: [phone] urobilinogen, urine, by dipstick Normal mg/dl Invalid Interpretation Code Normal [facility] Work Phone: [phone] Lab Report: CT/NG WC BY PCR on 04-27-2016 Chlamydia trachomatis DNA [Presence] in Urine by Probe and target amplification method Negative Invalid Interpretation Code Negative [facility] Work Phone: [phone] Neisseria gonorrhoeae presence Negative Invalid Interpretation Code Negative [facility] Work Phone: [phone] Lab Report: Comprehensive Ia tabolic Profilon 04-27-2016 Albumin/Globulin Ratio 1.1 {ratio} Invalid Interpretation Code 0.9-2.4 [facility] Work Phone: [phone] Anion gap 8 mmol/L Invalid Interpretation Code 5-15 [facility] Work Phone: [phone] Anion gap molar conc 8 mmol/L 5-[address] [address] [facility] Work Phone: [phone] BUN/Creatinine Ratio 16.3 RATIO Invalid Interpretation Code 10-20 [facility] Work Phone: [phone] Calcium 8.7 mg/dL Invalid Interpretation Code 8.5-10.1 [facility] Work Phone: [phone] Chloride 100 mmol/L Invalid Interpretation Code 98-107 [facility] Work Phone: [phone] CO2 25.0 mmol/L Invalid Interpretation Code 21.0-32.0 [facility] Work Phone: [phone] CO2 ppres (BldV) 25.0 mmol/L 21.0-32.0 [facility] Work Phone: [phone] Creatinine 0.68 mg/dL Low 0.70-1.30 [facility] Work Phone: [phone] eGFR (non-black) 129 mL/min/{1.73_m2} Invalid Interpretation Code >60 [facility] Work Phone: [phone] eGFR (non-black) 156 mL/min/{1.73_m2} Invalid Interpretation Code >60 [facility] Work Phone: [phone] EST GFR - AA 156 mL/min >60 [facility] Work Phone: [phone] Glucose 83 mg/dL Invalid Interpretation Code 70-110 [facility] Work Phone: [phone] Glucose mass conc 83 mg/dL Invalid Interpretation Code 70-110 [facility] Work Phone: [phone] Potassium 4.1 mmol/L Invalid Interpretation Code 3.5-5.1 [facility] Work Phone: [phone] Sodium 133 mmol/L Low 136-145 [facility] Work Phone: [phone] Urea nitrogen 11 mg/dL Invalid Interpretation Code 7-18 [facility] Work Phone: [phone] Lab Report: Urinalysis, Comp leteon 04-27-2016 Bacteria LM.HPF #/area (Urine sed) 0 SEEN /hpf None Seen [facility] Work Phone: [phone] Mucus Ql (Urine sed) 0 [facility]EN [facility] Work Phone: [phone] Urine, bacteria in sediment 0 /[HPF] Invalid Interpretation Code None Seen [facility] Work Phone: [phone] Urine, epithelial cells in sediment 0 SEEN Invalid Interpretation Code 0-5 [facility] Work Phone: [phone] Urine, erythrocytes in sediment by volume 0-5 SEEN Invalid Interpretation Code 0-5 [facility] Work Phone: [phone] Urine, mucus presence in sediment 0 SEEN Invalid Interpretation Code [facility] Work Phone: [phone] WBC #/vol (Bld) 25-50 SEEN 0-5 [facility] Work Phone: [phone] WBC (Leukocytes) 25-50 SEEN Invalid Interpretation Code 0-5 [facility] Work Phone: [phone] Office Visit: Possible UTIon 04-19-2016 blood in urine (hemoglobin) by dipstick 1+ Invalid Interpretation Code [facility] Work Phone: [phone] Glucose Test strip mass conc (U) Negative [facility] Work Phone: [phone] Nitrite Ql (U) Negative [facility] Work Phone: [phone] Urine, appearance clear Invalid Interpretation Code [facility] Work Phone: [phone] Urine, glucose presence Negative Invalid Interpretation Code [facility] Work Phone: [phone] Urine, nitrite presence Negative Invalid Interpretation Code [facility] Work Phone: [phone] Urine, urobilinogen presence Negative Invalid Interpretation Code [facility] Work Phone: [phone] Clinical Lists Update: 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-2015 LDL/HDL ratio, serum 1.3 Invalid Interpretation Code [facility] Work Phone: [phone] Office Visiton 01-07-2015 cardiac risk group C Invalid Interpretation Code [facility] Work Phone: [phone] General cardiovascular disease 10Y risk [#] Burna.D'Agostino N/A Invalid Interpretation Code [facility] Work Phone: [phone] Replaced Document: [employer] E CG Observationson 04-29-2013 Pulse (Heart Rate) 391 ms Invalid Interpretation Code [facility] Work Phone: [phone] Clinical Lists Update: Pre senior tax analyst 02-08-2012 Hematocrit (HCT) 39.7 % Invalid Interpretation Code [facility] Work Phone: [phone] Hematocrit Volume Fraction (Bld) 39.7 % [facility] Work Phone: [phone] Hemoglobin (HGB) 13.4 g/dL Invalid Interpretation Code [facility] Work Phone: [phone] Platelets 213 10*3/mm3 Invalid Interpretation Code [facility] Work Phone: [phone] Platelets #/vol (Bld) 213 10*3/mm3 [facility] Work Phone: [phone] WBC #/vol (Bld) 5.9 10*3/uL [facility] Work Phone: [phone] WBC (Leukocytes) 5.9 10*3/uL Invalid Interpretation Code [facility] Work Phone: [phone] Vital Signs Date Time Vital Sign Value Performing Clinician Facility 08-10-2025 12:54-0400 Body height 174 cm Jany Blanco MD Work Phone: [facility] [place] 08-10-2025 12:54-0400 Body height 173.99 cm Jany Blanco MD Work Phone: [facility] 08-10-2025 12:54-0400 Body mass index (BMI) [Ratio] 22.86 kg/m2 Jany Blanco MD Work Phone: [facility] 08-10-2025 12:54-0400 Body weight 69 kg Jany Blanco MD Work Phone: [facility] 08-10-2025 12:54-0400 Body weight 68.95 kg Jany Blanco MD Work Phone: [facility] 08-10-2025 12:54-0400 BP SITE #1 Jany Blanco MD Work Phone: [facility] 08-10-2025 12:54-0400 Diastolic blood pressure 73 mm[Hg] Jany Blanco MD Work Phone: [facility] 08-10-2025 12:54-0400 Heart rate 79 /min Jany Blanco MD Work Phone: [facility] 08-10-2025 12:54-0400 HGHTCHNVIS Jany Blanco MD Work Phone: [facility] 08-10-2025 12:54-0400 Systolic blood pressure 138 mm[Hg] Jany Blanco MD Work Phone: [facility] 08-10-2025 12:54-0400 VITALSDONE Jany Blanco MD Work Phone: [facility] 06-02-2025 14:55-0400 Body height 174 cm Therese Carter PA-C Work Phone: [facility] 06-02-2025 14:55-0400 Body height 173.99 cm Therese Carter PA-C Work Phone: [facility] 06-02-2025 14:55-0400 Body mass index (BMI) [Ratio] 22.26 kg/m2 Therese Henryr PA-C Work Phone: [facility] 06-02-2025 14:55-0400 Body weight 67 kg Therese Henryr PA-C Work Phone: [facility] 06-02-2025 14:55-0400 Body weight 67.13 kg Therese Henryr PA-C Work Phone: [facility] 06-02-2025 14:55-0400 BP SITE #1 Therese Henryr PA-C Work Phone: [facility] 06-02-2025 14:55-0400 Diastolic blood pressure 76 mm[Hg] Therese Henryr PA-C Work Phone: [facility] 06-02-2025 14:55-0400 HGHTCHNVIS Therese Henryr PA-C Work Phone: [facility] 06-02-2025 14:55-0400 Systolic blood pressure 137 mm[Hg] Therese Henryr PA-C Work Phone: [facility] 06-02-2025 14:55-0400 VITALSDONE Therese Carter PA-C Work Phone: [facility] 05-21-2025 08:52-0400 Body height 173 cm Rubio Grimes MD Work Phone: [facility] 05-21-2025 08:52-0400 Body mass index (BMI) [Ratio] 22.42 kg/m2 Rubio Grimes MD Work Phone: [facility] 05-21-2025 08:52-0400 Body temperature 97.59 [degF] Rubio Grimes MD Work Phone: [facility] 05-21-2025 08:52-0400 Body weight 67.1 kg Rubio Grimes MD Work Phone: [facility] 05-21-2025 08:52-0400 Diastolic blood pressure 73 mm[Hg] Rubio Grimes MD Work Phone: [facility] 05-21-2025 08:52-0400 Heart rate 75 /min Rubio Grimes MD Work Phone: [facility] 05-21-2025 08:52-0400 SaO2% (BldA) [Mass fraction] 97 % Rubio Grimes MD Work Phone: [facility] 05-21-2025 08:52-0400 Systolic blood pressure 130 mm[Hg] Rubio Grimes MD Work Phone: [facility] 03-02-2025 08:18-0400 Body height 177.[address] Jeferson Thomas MD Work Phone: [facility] 03-02-2025 08:18-0400 Body mass index (BMI) [Ratio] 21.7 kg/m2 Dr. Jeferson Thomas MD Work Phone: [facility] 03-02-2025 08:18-0400 Body weight 68.[address] Jeferson Thomas MD Work Phone: [facility] 03-02-2025 08:18-0400 Diastolic blood pressure 89 mm[Hg] Dr. Jeferson Thomas MD Work Phone: [facility] 03-02-2025 08:18-0400 Heart rate 80 /min Dr. Jeferson Thomas MD Work Phone: [facility] 03-02-2025 08:18-0400 Respiratory rate 14 /min Dr. Jeferson Thomas MD Work Phone: [facility] 03-02-2025 08:18-0400 Systolic blood pressure 156 mm[Hg] Dr. Jeferson Thomas MD Work Phone: [facility] 11-18-2024 08:54-0500 Body mass index (BMI) [Ratio] 22.8 kg/m2 Rubio Grimes MD Work Phone: [facility] 11-18-2024 08:54-0500 Body weight 67.13 kg Rubio Grimes MD Work Phone: [facility] 11-18-2024 08:54-0500 Diastolic blood pressure 78 mm[Hg] Rubio Grimes MD Work Phone: [facility] 11-18-2024 08:54-0500 Heart rate 78 /min Rubio Grimes MD Work Phone: [facility] 11-18-2024 08:54-0500 Systolic blood pressure 146 mm[Hg] Rubio Grimes MD Work Phone: [facility] 10-08-2024 09:43-0500 Body temperature 98.4 [degF] Dr. Jeferson Thomas MD Work Phone: [facility] 10-08-2024 09:43-0500 Body weight 66.[address] Jeferson Thomas MD Work Phone: [facility] 10-08-2024 09:43-0500 Diastolic blood pressure 76 mm[Hg] Dr. Jeferson Thomas MD Work Phone: [facility] 10-08-2024 09:43-0500 Heart rate 70 /min Dr. Jeferson Thomas MD Work Phone: [facility] 10-08-2024 09:43-0500 Respiratory rate 15 /min Dr. Jeferson Thomas MD Work Phone: [facility] 10-08-2024 09:43-0500 SaO2% (BldA) [Mass fraction] 96 % Dr. Jeferson Thomas MD Work Phone: [facility] 10-08-2024 09:43-0500 Systolic blood pressure 156 mm[Hg] Dr. Jeferson Thomas MD Work Phone: [facility] 08-13-2024 08:55-0400 Body mass index (BMI) [Ratio] 22.03 kg/m2 Hair Adames APRN.CATHODE WASHER Work Phone: [facility] 08-13-2024 08:55-0400 Body weight 64.86 kg Hair Adames APRN.CATHODE WASHER Work Phone: [facility] 08-13-2024 08:55-0400 Diastolic blood pressure 87 mm[Hg] Hair Adames APRN.CATHODE WASHER Work Phone: [facility] 08-13-2024 08:55-0400 Heart rate 80 /min Hair Adames APRN.CATHODE WASHER Work Phone: [facility] 08-13-2024 08:55-0400 Systolic blood pressure 173 mm[Hg] Hair Adames APRN.CATHODE WASHER Work Phone: [facility] 05-21-2024 08:52-0400 Body mass index (BMI) [Ratio] 22.07 kg/m2 Hair Adames APRN.CATHODE WASHER Work Phone: [facility] 05-21-2024 08:52-0400 Body weight 65 kg Hair Adames APRN.CATHODE WASHER Work Phone: [facility] 05-21-2024 08:52-0400 Diastolic blood pressure 78 mm[Hg] Hair Adames APRN.CATHODE WASHER Work Phone: [facility] 05-21-2024 08:52-0400 Heart rate 71 /min Hair Adames APRN.CATHODE WASHER Work Phone: [facility] 05-21-2024 08:52-0400 Systolic blood pressure 146 mm[Hg] Hair Adames APRN.CATHODE WASHER Work Phone: [facility] 04-07-2024 13:27-0400 Body height 171.6 cm Pul Wstr Work Phone: [facility] 04-07-2024 13:27-0400 Body mass index (BMI) [Ratio] 21.87 kg/m2 Pulm Wstr Work Phone: [facility] 04-07-2024 13:270400 Body weight 64.41 kg Pulm Wstr Work Phone: [facility] 04-07-2024 13:27-0400 Diastolic blood pressure 75 mm[Hg] Pulm Wstr Work Phone: [facility] 04-07-2024 13:27-0400 Heart rate 86 /min Pulm Wstr Work Phone: [facility] 04-07-2024 13:27-0400 Respiratory rate 14 /min Pulm Wstr Work Phone: [facility] 04-07-2024 13:27-0400 SaO2% (BldA) [Mass fraction] 95 % Pulm Wstr Work Phone: [facility] 04-07-2024 13:27-0400 Systolic blood pressure 129 mm[Hg] Pulm Wstr Work Phone: [facility] 03-30-2024 12:15-0400 Body height 177.8 cm Ramon Samuel MD Work Phone: [facility] 03-30-2024 12:15-0400 Body mass index (BMI) [Ratio] 20.88 kg/m2 Ramon Samuel MD Work Phone: [facility] 03-30-2024 12:15-0400 Body weight 66 kg Ramon Samuel MD Work Phone: [facility] 03-30-2024 12:15-0400 Diastolic blood pressure 66 mm[Hg] Ramon Samuel MD Work Phone: [facility] 03-30-2024 12:15-0400 Heart rate 72 /min Ramon Samuel MD Work Phone: [facility] 03-30-2024 12:15-0400 SaO2% (BldA) [Mass fraction] 98 % Ramon Samuel MD Work Phone: [facility] 03-30-2024 12:15-0400 Systolic blood pressure 146 mm[Hg] Ramon Samuel MD Work Phone: [facility] 02-19-2024 08:06-0400 Body height 177.8 cm Rubio Grimes MD Work Phone: [facility] 02-19-2024 08:06-0400 Body mass index (BMI) [Ratio] 20.47 kg/m2 Rubio Grimes MD Work Phone: [facility] 02-19-2024 08:06-0400 Body weight 64.7 kg Rubio Grimes MD Work Phone: [facility] 02-19-2024 08:06-0400 Diastolic blood pressure 79 mm[Hg] Rubio Grimes MD Work Phone: [facility] 02-19-2024 08:06-0400 Heart rate 70 /min Rubio Grimes MD Work Phone: [facility] 02-19-2024 08:06-0400 Respiratory rate 16 /min Rubio Grimes MD Work Phone: [facility] 02-19-2024 08:06-0400 Systolic blood pressure 131 mm[Hg] Rubio Grimes MD Work Phone: [facility] 01-03-2024 14:15-0500 Body temperature 97.6 [degF] Dr. Rick Gaffney Work Phone: [facility] 01-03-2024 14:15-0500 Diastolic blood pressure 86 mm[Hg] Dr. Rick Gaffney Work Phone: [facility] 01-03-2024 14:15-0500 Heart rate 65 /min Dr. Rick Gaffney Work Phone: [facility] 01-03-2024 14:15-0500 Respiratory rate 16 /min Dr. Rick Gaffney Work Phone: [facility] 01-03-2024 14:15-0500 SaO2% (BldA) [Mass fraction] 99 % Dr. Rick Gaffney Work Phone: [facility] 01-03-2024 14:15-0500 Systolic blood pressure 143 mm[Hg] Dr. Rick Gaffney Work Phone: [facility] 01-03-2024 04:29-0500 Body mass index (BMI) [Ratio] 20.2 kg/m2 Dr. Rick Gaffney Work Phone: [facility] 01-03-2024 04:29-0500 Body weight [address] Rick Gaffney Work Phone: [facility] 01-02-2024 14:20-0500 Body height 177.[address] Rick Gaffney Work Phone: [facility] 01-01-2024 17:12-0500 Body temperature 96.8 [degF] Dr. Rick Gaffney Work Phone: [facility] 01-01-2024 17:12-0500 Diastolic blood pressure 75 mm[Hg] Dr. Rick Gaffney Work Phone: [facility] 01-01-2024 17:12-0500 Heart rate 65 /min Dr. Rick Gaffney Work Phone: [facility] 01-01-2024 17:12-0500 Respiratory rate 16 /min Dr. Rick Gaffney Work Phone: [facility] 01-01-2024 17:12-0500 SaO2% (BldA) [Mass fraction] 97 % Dr. Rick Gaffney Work Phone: [facility] 01-01-2024 17:12-0500 Systolic blood pressure 150 mm[Hg] Dr. Rick Gaffney Work Phone: [facility] 01-01-2024 12:07-0500 Body mass index (BMI) [Ratio] 20.7 kg/m2 Dr. Rick Gaffney Work Phone: [facility] 01-01-2024 12:07-0500 Body weight 65.[address] Rick Gaffney Work Phone: [facility] 01-01-2024 11:51-0500 Body height 177.[address] Rick Gaffney Work Phone: [facility] 12-29-2023 09:39-0500 Body mass index (BMI) [Ratio] 20 kg/m2 Dr. Rick Gaffney Work Phone: [facility] 12-29-2023 09:39-0500 Body temperature 100 [degF] Dr. Rick Gaffney Work Phone: [facility] 12-29-2023 09:39-0500 Body weight 63.[address] Rick Gaffney Work Phone: [facility] 12-29-2023 09:39-0500 Diastolic blood pressure 72 mm[Hg] Dr. Rick Gaffney Work Phone: [facility] 12-29-2023 09:39-0500 Heart rate 98 /min Dr. Rick Gaffney Work Phone: [facility] 12-29-2023 09:39-0500 Respiratory rate 12 /min Dr. Rick Gaffney Work Phone: [facility] 12-29-2023 09:39-0500 SaO2% (BldA) [Mass fraction] 97 % Dr. Rick Gaffney Work Phone: [facility] 12-29-2023 09:39-0500 Systolic blood pressure 154 mm[Hg] Dr. Rick Gaffney Work Phone: [facility] 07-11-2023 15:39-0400 Diastolic blood pressure 82 mm[Hg] Dr. Rick Gaffney Work Phone: [facility] 07-11-2023 15:39-0400 Systolic blood pressure 148 mm[Hg] Dr. Rick Gaffney Work Phone: [facility] 07-11-2023 15:28-0400 Body height 175.[address] Rick Gaffney Work Phone: [facility] 07-11-2023 15:28-0400 Body mass index (BMI) [Ratio] 21.9 kg/m2 Dr. Rick Gaffney Work Phone: [facility] 07-11-2023 15:28-0400 Body weight 67.[address] Rick Gaffney Work Phone: [facility] 07-11-2023 15:28-0400 Heart rate 76 /min Dr. Rick Gaffney Work Phone: [facility] 07-11-2023 15:28-0400 Respiratory rate 20 /min Dr. Rick Gaffney Work Phone: [facility] 07-16-2022 15:58-0400 Body height 175.[address] Rick Gaffney Work Phone: [facility] Work Phone: 07-16-2022 15:58-0400 Body mass index (BMI) [Ratio] 22.4 kg/m2 Dr. Rick Gaffney Work Phone: [facility] Work Phone: 07-16-2022 15:58-0400 Body weight 69.[address] Rick Gaffney Work Phone: [facility] Work Phone: 07-16-2022 15:58-0400 Diastolic blood pressure 72 mm[Hg] Dr. Rick Gaffney Work Phone: [facility] Work Phone: 07-16-2022 15:58-0400 Heart rate 72 /min Dr. Rick Gaffney Work Phone: [facility] Work Phone: 07-16-2022 15:58-0400 Respiratory rate 16 /min Dr. Rick Gaffney Work Phone: [facility] Work Phone: 07-16-2022 15:58-0400 Systolic blood pressure 142 mm[Hg] Dr. Rick Gaffney Work Phone: [facility] Work Phone: 05-17-2017 13:03-0400 BMI (Body Mass Index) 22.01 kg/m2 [facility] Work Phone: 05-17-2017 13:03-0400 BP Diastolic 74 mm[Hg] [facility] Work Phone: 05-17-2017 13:03-0400 BP Systolic 102 mm[Hg] Tyler Johnston [facility] Work Phone: 05-17-2017 13:03-0400 Height 177.8 cm Tyler Johnston [facility] Work Phone: 05-17-2017 13:03-0400 Pulse (Heart Rate) 66 /min Tyler Johnston [facility] Work Phone: 05-17-2017 13:03-0400 Respiratory Rate 20 /min [facility] Work Phone: 05-17-2017 13:03-0400 Weight 69.58 kg Tyler Johnston [facility] Work Phone: 11-16-2016 13:22-0500 Heart rate 64 /min Harethel Medeiros [facility] Work Phone: 11-16-2016 13:06-0500 BMI (Body Mass Index) 22.22 kg/m2 Kurt Quintero NP [facility] Work Phone: 11-16-2016 13:06-0500 BP Diastolic 70 mm[Hg] Kurt Quintero NP [facility] Work Phone: 11-16-2016 13:06-0500 BP Systolic 120 mm[Hg] Kurt Quintero NP [facility] Work Phone: 11-16-2016 13:06-0500 BSA (Body Surface Area) 1.87 m2 Kurt Quintero NP [facility] Work Phone: 11-16-2016 13:06-0500 Pulse (Heart Rate) 72 /min Kurt Quintero [employer] [facility] Work Phone: 11-16-2016 13:06-0500 Respiratory Rate 12 /min Kurt Quintero [employer] [facility] Work Phone: 11-16-2016 13:06-0500 Weight 70.26 kg Kurt Quintero NP [facility] Work Phone: 05-17-2016 11:04-0400 Body Temperature 98.1 [degF] Kurt Quintero NP [facility] Work Phone: 09-16-2015 12:06-0500 Height 177.8 cm Kurt Quintero NP [facility] Work Phone: 04-29-2013 13:52-0400 Heart rate 391 ms Valerie Medeiros [facility] Work Phone: Encounters Encounter Date Encounter Type Care Provider Facility Start: 08-10-2025 In-person encounter Jany rivera MD Work Phone: [facility] Work Phone: Start: 08-10-2025 Visit out of hours Jany rendon MD Work Phone: [facility] Work Phone: Start: 06-03-2025 Visit out of hours Therese lemus PA-Nuha Work Phone: [facility] Work Phone: Start: 06-02-2025 In-person encounter Therese wooten PAMaryC Work Phone: [facility] Work Phone: Start: 05-21-2025 End: 05-21-2025 Patient encounter procedure Rubio Grimes MD Work Phone: [facility] Comment on above: Hyponatremia (Primar y Dx); SIADH (syndrome of inappropriate ADH production) (HCC); Essential hypertension Start: 05-21-2025 End: 05-21-2025 ambulatory RUBIO GRIMES Facility:[facility] Start: 05-13-2025 End: 07-13-2025 Follow-up encounter Iona Wright APRN.CNP Work Phone: [facility] Start: 05-13-2025 Encounter for genera l adult medical examination without abnormal findings Jeferson Erlinda [facility] Start: 05-13-2025 End: 05-13-2025 ambulatory JEFERSON THOMAS Facility:[facility] Start: 05-09-2025 End: 05-09-[address] Jeferson Thomas MD Work Phone: -Laboratory Start: 05-09-2025 End: 05-09-[address] Jeferson Thomas MD -Laboratory Work Phone: Start: 05-09-2025 End: 05-09-[address] [facility] Facility:[facility] Start: 03-30-2025 End: 03-30-2025 Telephone encounter Ramon Samuel MD Work Phone: Pulmonary Medicine Comment on above: Results Start: 03-25-2025 End: 03-25-[address] Jeferson Thomas MD Work Phone: [facility] Work Phone: Start: 03-25-2025 End: 03-25-[address] Jeferson Thomas MD -[facility] Work Phone: Start: 03-25-2025 End: 03-25-2025 ambulatory Jeferson Thomas Facility:[facility] Start: 03-17-2025 ambulatory Ángel Nichole Facility:[facility] Start: 03-17-2025 Non-patient / Non-visit Dr. Brice RODRIGUEZ -[facility] Start: 03-17-2025 End: 03-17-[address] Jeferson Thomas MD Work Phone: [facility] Work Phone: Start: 03-17-2025 End: 03-17-2025 Patient encounter procedure Karla VALENZUELA -Cardiovascular Services Work Phone: Start: 03-17-2025 End: 03-17-2025 ambulatory Jeferson Thomas Facility:[facility] Start: 03-02-2025 End: 03-02-2025 Patient encounter procedure Karla VALENZUELA -[facility] Work Phone: Start: 03-02-2025 End: 03-02-2025 ambulatory Jeferson Thomas Facility[facility] Start: 02-23-2025 End: 02-23-[address] Ángel Nichole MD -[facility] Start: 02-23-2025 End: 02-23-2025 ambulatory Jeferson Thomas Facility:[facility] Start: 02-19-2025 End: 02-19-[address] Jeferson Thomas MD -Laboratory Work Phone: Start: 02-19-2025 End: 02-19-2025 ambulatory Jeferson Thomas Facility:[facility] Start: 02-10-2025 End: 04-12-2025 Follow-up encounter Rubio Grimes MD Work Phone: [facility] Start: 02-10-2025 End: 02-10-2025 ambulatory JEFERSON THOMAS Facility:[facility] Start: 12-31-2024 End: 12-31-[address] Jeferson Thomas MD Work Phone: [facility] Work Phone: Start: 12-31-2024 End: 12-31-[address] Jeferson Thomas MD -Laboratory Work Phone: Start: 12-31-2024 End: 12-31-2024 ambulatory Jeferson Thomas Facility:[facility] Start: 12-14-2024 End: 12-14-[address] Jeferson Thomas MD -Laboratory Work Phone: Start: 12-14-2024 End: 12-14-[address] [facility] Facility:[facility] Start: 12-11-2024 End: 12-11-[address] Jeferson Thomas MD -Laboratory Work Phone: Start: 12-11-2024 End: 12-11-[address] [facility] Facility:[facility] Start: 11-18-2024 End: 11-18-2024 ambulatory RUBIOZack GRIMES Facility:[facility] Start: 11-18-2024 End: 11-18-2024 Patient encounter procedure Rubio Grimes MD Work Phone: Kidney Medicine Comment on above: Hyponatremia (Primar y Dx); SIADH (syndrome of inappropriate ADH production) (HCC); Essential hypertension Start: 11-10-2024 End: 11-10-2024 ambulatory RUBIOZack GRIMES Facility:[facility] Start: 11-06-[facility] Start: 11-06-2024 Non-patient / Non-visit Dr. Damon gonzalez MD -[facility] Start: 11-06-2024 End: 11-06-2024 Patient encounter procedure Jodee VALENZUELA -Cardiovascular Services Work Phone: Start: 11-06-2024 End: 11-06-[address] [facility] Facility:[facility] Start: 10-08-2024 End: 10-08-2024 Patient encounter procedure Jodee VALENZUELA -[facility] Work Phone: Start: 10-08-2024 End: 10-08-20[facility] Start: 09-21-[address] [facility] Facility:[facility] Start: 09-02-2024 End: 09-02-2024 Telephone encounter Ramon Samuel MD Work Phone: Pulmonary Medicine Start: 09-01-2024 End: 09-01-2024 Telephone encounter Ramon Samuel MD Work Phone: Pulmonary Medicine Comment on above: Patient Update Start: 08-28-2024 End: 08-28-2024 Telephone encounter Hair Adames APRN.CATHODE WASHER Work Phone: [facility] [place] Comment on above: ct questions Start: 08-28-2024 End: 08-28-2024 ambulatory Jeferson Erlinda Facility:[facility] Start: 08-13-2024 End: 08-13-2024 ambulatory HAIR ADAMES Facility:[facility] Start: 08-13-2024 End: 08-13-2024 Patient encounter procedure Hair Adames APRN.CATHODE WASHER Work Phone: Kidney Medicine Comment on above: Hyponatremia (Primar y Dx); SIADH (syndrome of inappropriate ADH production) (HCC); Essential hypertension; Other hyperlipidemia; Pleural thickening Start: 08-12-2024 End: 08-12-2024 ambulatory RUBIO GRIMES Facility:[facility] Start: 08-06-2024 End: 08-06-2024 Telephone encounter Rubio Grimes MD Work Phone: [facility] Start: 08-06-2024 End: 08-06-2024 ambulatory RUBIO GRIMES Facility:[facility] Start: 05-21-2024 End: 05-21-2024 Patient encounter procedure Hair Adames APRN.CATHODE WASHER Work Phone: Kidney Medicine Comment on above: Hyponatremia (Primar y Dx); SIADH (syndrome of inappropriate ADH production) (HCC); Essential hypertension; Other hyperlipidemia; Pleural plaque Start: 04-07-2024 End: 04-07-2024 ambulatory Pulm Lab [facility] Work Phone: PULM [facility] Comment on above: Spirometry Start: 04-07-2024 End: 04-07-2024 Patient encounter procedure Pulm Lab [facility] Work Phone: PULM [facility] Start: 04-03-2024 ambulatory Rubio Grimes MD Work Phone: Kidney Medicine Comment on above: sodium Start: 04-03-2024 E-mail encounter yady ray caregiver Rubio Grimes MD Work Phone: Kidney [...] above: sodium level Start: 03-20-2024 E-mail encounter yady ray caregiver Rubio Grimes MD Work Phone: [facility] Medicine Start: 03-18-2024 Telephone encounter Rubio Malin i, MD Work Phone: Kidney Medicine Comment on above: Results Start: 03-13-2024 End: 03-13-2024 Subsequent hospital visit by physician [facility] ([facility]) Work Phone: Cat Scan Comment on above: Pleural effusion [J9 0] Start: 02-20-2024 Telephone encounter Rubio Malin i, MD Work Phone: [facility] [place] Start: 02-19-2024 End: 02-19-2024 Subsequent hospital visit by physician Xr [facility] Work Phone: Radiology Comment on above: Hyponatremia [E87.1] Start: 02-19-2024 End: 02-19-2024 Patient encounter procedure Rubio Grimes MD Work Phone: [facility] Medicine Comment on above: 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 Rick Gaffney Work Phone: [facility] Work Phone: Start: 01-31-2024 End: 01-31-[address] Rick Gaffney Work Phone: [facility]-Laboratory Work Phone: Start: 01-10-2024 End: 01-10-[address] Rick Gaffney Work Phone: [facility] Work Phone: Start: 01-10-2024 End: 01-10-[address] Rick Gaffney Work Phone: [facility]-Laboratory, Phy Office 3rd Flr Start: 01-03-2024 Non-patient / Non-visit Dr. Jj Gaffney Work Phone: [facility] Work Phone: Start: 01-02-2024 Non-patient / Non-visit Dr. Jj Gaffney Work Phone: [facility] Work Phone: Start: 01-01-2024 End: 01-03-2024 Evaluation and management of inpatient Dr. Rick Gaffney Work Phone: [facility]-Progressive Care Unit Work Phone: Start: 01-01-2024 Non-patient / Non-visit Dr. Jj Gaffney Work Phone: [facility] Work Phone: Start: 12-29-2023 End: 12-29-[address] Rick Gaffney Work Phone: [facility] Work Phone: Start: 10-09-2023 End: 10-09-[address] Rick Gaffney Work Phone: [facility] Work Phone: Start: 10-09-2023 End: 10-09-[address] Rick Gaffney Work Phone: [facility] Work Phone: Start: 10-04-2023 End: 10-04-[address] Rick Gaffney Work Phone: [facility] Work Phone: Start: 10-04-2023 End: 10-04-[address] [facility] Start: 07-11-2023 End: 07-11-[address] Rick Gaffney Work Phone: [facility] Work Phone: Start: 06-10-2023 End: 06-10-2023 ambulatory [facility] Work Phone: Start: 06-10-2023 End: 06-10-2023 Patient encounter procedure [facility], Phy Office 3rd Flr Start: 03-04-2023 End: 03-04-2023 ambulatory [facility] Work Phone: Start: 03-04-2023 End: 03-04-2023 Patient encounter procedure [facility], Phy Office 3rd Flr Start: 11-07-2022 End: 11-07-[address] Rick Gaffney Work Phone: [facility] Work Phone: Start: 11-07-2022 End: 11-07-[address] Rick [facility] Start: 07-16-2022 End: 07-16-[address] Rick Gaffney Work Phone: [facility] Start: 07-09-2022 End: 07-09-2022 ambulatory [facility] Work Phone: Start: 07-09-2022 End: 07-09-2022 Patient encounter procedure [facility] Start: 02-13-2022 End: 02-13-[address] Rick Gaffney Work Phone: [facility] Start: 11-16-2021 End: 11-16-[address] Rick [facility]aff[facility] 3[facility] Flr Start: 11-02-2021 End: 11-02-[address] Rick [facility]aff[facility] 3[facility] Flr Start: 10-26-[address] Rick [facility]aff[facility] 3[facility] Flr Start: 10-25-2021 End: 10-25-[address] Rick [facility] Start: 10-25-2021 End: 10-25-[address] Rick Gaffney Work Phone: [facility] Procedures Date Procedure Procedure Detail Performing Clinician Start: 08-10-2025 Blood pressure withi n normal parameters - no follow-up required Jany lBanco MD Work Phone: Start: 08-10-2025 Current tobacco non- user cad cap copd pv dm Jany Blanco MD Work Phone: Start: 08-10-2025 Documentation of cur rent medications Jany Blanco MD Work Phone: Start: 08-10-2025 Pain assessment documented as positive - follow-up documented Jany Blanco MD Work Phone: Start: 08-10-2025 End: 08-10-2025 Arthrocentesis aspir&/inj interm jt/burs w/o us Jany Blanco MD Work Phone: Start: 08-10-2025 Injection - betamethasone acetate 3 mg and betamethasone sodium phosphate 3 mg Jany Blanco MD Work Phone: Start: 06-03-2025 Blood pressure withi n normal parameters - no follow-up required Therese Colungaucar PA-C Work Phone: Start: 06-03-2025 BMI documented withi n normal parameters - no follow-up plan is required Therese Diego Klucar PA-C Work Phone: Start: 06-03-2025 Current tobacco non- user cad cap copd pv dm Therese Diego Klucar PA-C Work Phone: Start: 06-03-2025 Osteoarthritis symptoms&funcjal status asses Therese Diego Klucar PA-C Work Phone: Start: 06-03-2025 Documentation of cur rent medications Therese Diego Klucar PA-C Work Phone: Start: 06-03-2025 Pain assessment documented as negative - follow-up not required Therese Diego Klucar PA-C Work Phone: Start: 06-03-2025 HFO CUSTOM STATIC Therese Colungaucar PA-C Work Phone: Start: 06-03-2025 Occupational therapy Capri Diego Klucar PA-C Work Phone: Start: 06-03-2025 WHFO CUSTOM STATIC Jennifer Diego Klucar PA-C Work Phone: Start: 03-25-[address] Jeferson self MD Work Phone: Start: 03-17-2025 Radionuclide imaging of perfusion of myocardium under exercise stress Dr. Jeferson Thomas MD Work Phone: Start: 02-23-2025 X-ray of chest, PA a nd lateral views Dr. Jeferson Thomas MD Work Phone: Start: 12-14-2024 Measurement of renal function Dr. Jeferson Thomas MD Work Phone: Comment on above: GFR Calc Start: 12-11-2024 Measurement of renal function Dr. Jeferson Thomas MD Work Phone: Comment on above: GFR [...] MD Start: 04-27-2016 End: 04-27-2016 Urinalysis Valerie Edgarjerald Start: 04-19-2016 End: 04-19-2016 *CHLGC - Chlamydia/GC DNA Probe [id number] Rick A Yeimy DO Work Phone: Start: 04-19-2016 End: 04-19-2016 *BONITA - Fungus, BONITA Prep Rick A Yeimy DO Work Phone: Start: 04-19-2016 End: 04-27-2016 Urinalysis complete panel - Urine Rick A Yeimy DO Work Phone: Start: 04-19-2016 End: 04-19-2016 Urnls dip stick/tablet rgnt non-auto w/o micrscp Rick GrantFotofeedback Work Phone: Start: 04-19-2016 End: 04-19-2016 Urinalysis Valerie Medeiros Start: 04-19-2016 End: 04-19-2016 *CHLGC - Chlamydia/GC DNA Probe [id number] Rick PetersenDogi Work Phone: Start: 04-19-2016 End: 04-19-2016 *BONITA - Fungus, BONITA Prep Rick GrantFotofeedback Work Phone: Start: 04-19-2016 End: 04-27-2016 Urinalysis complete panel - Urine Rick Gaffney [employer] Phone: Start: 04-19-2016 End: 04-19-2016 Urinalysis nonauto w/o scope Rick Gaffney [employer] Phone: Start: 04-02-2016 End: 04-27-2016 *CMP Complete Metabolic Panel Rick [employer] Phone: Start: 04-02-2016 End: 04-27-2016 Lipid 1996 panel - Serum or Plasma Rick GrantCRE [employer] Phone: Start: 04-02-2016 End: 04-27-2016 *CMP Complete Metabolic Panel Rick [employer] Phone: Start: 04-02-2016 End: 04-27-2016 Lipid panel [AGGREGATE] Rick GrantCRE [employer] Phone: Start: 09-16-2015 End: 09-16-2015 Follow Up Appt 6 months Jacques Blair MD Start: 09-16-2015 End: 09-16-2015 PFM Jacques Blair MD Start: 09-16-2015 End: 09-16-2015 Follow Up Appt 6 months Jcaques Blair MD Start: 09-16-2015 End: 09-16-2015 PFM Jacques Blair MD Start: 04-05-2015 Herlinda Malin i, MD Work Phone: Start: 01-07-2015 End: 01-08-2015 Documentation of current medications Jacques Blair MD Start: 01-07-2015 End: 01-07-2015 Follow Up Appt 6 months Jacques Blair MD Start: 01-07-2015 End: 05-07-2017 Follow Up Appt Other Jaqcues Blair MD Start: 01-07-2015 End: 01-07-2015 PFM [...] RCA and SVG to , SVG to [facility] per Dr. Hernandez Plan of Treatment Date Care Activity Detail Author Start: 02-18-2027 Diabetes Screening Diabetes Screenin g [facility] Start: 08-10-2025 End: 08-10-2025 Huan Xiong Work Phone: Start: 06-28-2025 Influenza vaccination C [facility] Start: 05-21-2025 End: 05-21-2025 Patient encounter procedure 05/21/2025 9:00 AM EDT Office Visit [facility] Medicine [address] [place] [address] [place] [address] [place] [address] SIADH FOLLOW UP [facility] Comment on above: SIADH FOLLOW UP Start: 04-05-2025 Screening for malign ant neoplasm of colon [facility] Start: 03-30-2025 End: 04-29-2025 CT Chest WO contrast CT CHEST WO IVCON Radiology Routine Interstitial pulmonary disease (HCC) Expected: 03/30/2025, Expires: 04/29/2025 [facility] Comment on above: Expected: 03/30/2025 , Expires: 04/29/2025 Start: 11-18-2024 End: 11-18-2024 Patient encounter procedure 11/18/2024 9:00 AM EST Office Visit [facility] Medicine [address] [place] [address] [place] [address] [place] [address] Grimes [facility] Comment on above: [address] Christian taylor Start: 10-28-2024 Advance Directive Discussion Advance Directive Discussion [facility] Start: 08-13-2024 End: 08-13-2024 Patient encounter procedure 08/13/2024 9:00 AM EDT Office Visit Kidney Medicine [address] [place] [address] Hair Adames APRN.[facility] [address] [place] [address] Follow-up disposition: Return in about 3 months (around 08/21/2024) for with Dr Grimes. [facility] Medicine Comment on above: Follow-up dispositio n: Return in about 3 months (around 08/21/2024) for with Dr Grmies. Start: 08-06-2024 End: 11-05-2024 Renal function 2000 panel - Serum or Plasma RENAL FUNCTION PANEL Lab Routine SIADH (syndrome of inappropriate ADH production) ([facility]) Expected: 08/06/2024, Expires: 11/05/2024 [facility] Work Phone: Comment on above: Expected: 08/06/2024 , Expires: 11/05/2024 Start: 06-28-2024 Covid-19 Vaccine ( season) Covid-19 Vaccine ( season) [facility] Start: 06-28-2024 Covid-19 Vaccine ( season) Covid-19 Vaccine ( season) [facility] Start: 06-28-2024 Influenza vaccination C [facility] Start: 05-21-2024 End: 05-21-2024 Patient encounter procedure [facility] Comment on above: 3 month follow up; S IADH Start: 04-07-2024 End: 04-07-2024 ambulatory PULM LAB [facility] Comment on above: Pleural plaque [J92. 9] Start: 04-03-2024 End: 07-03-2024 Renal function 2000 panel - Serum or Plasma RENAL FUNCTION PANEL Lab Routine Hyponatremia Expected: 04/03/2024, Expires: 07/03/2024 [facility] Work Phone: Comment on above: Expected: 04/03/2024 , Expires: 07/03/2024 Start: 03-30-2024 End: 03-30-2024 Patient encounter procedure 03/30/2024 12:15 PM EDT Office Visit Pulmonary Medicine [address] [id number] Ramon Samuel MD [address] [place], [place] [id number] CONSULT TO PULM/CRITICAL CARE [facility] Comment on above: CONSULT TO PULM/CRIT ICAL CARE Start: 2024 Advance Directive Discussion Advance Directive Discussion [facility] Start: 02-26-2024 Medicare Annual Well ness Visit Medicare Annual Wellness Visit [facility] Start: 02-19-2024 End: 05-20-2024 Cortisol [Mass/volume] in Serum or Plasma [facility] Comment on above: Expected: 02/19/2024 , Expires: 05/20/2024 Start: 02-19-2024 End: 05-20-2024 Osmolality of Serum or Plasma [facility] Work Phone: Comment on above: Expected: 02/19/2024 , Expires: 05/20/2024 Start: 02-19-2024 End: 05-20-2024 Sodium [Moles/volume] in Urine collected for unspecified duration [facility] Comment on above: Expected: 02/19/2024 , Expires: 05/20/2024 Start: 02-19-2024 End: 05-20-2024 Thyrotropin [Units/volume] in Serum or Plasma [facility] Comment on above: Expected: 02/19/2024 , Expires: 05/20/2024 Start: 01-03-2024 Patient discharge [facility] Start: 01-02-2024 Referral to checkman [facility] Start: 01-01-2024 Respiratory secretio n precautions [facility] Start: 01-01-2024 Following clinical pathway protocol [facility] Start: 01-01-2024 Assessment of risk o f venous thromboembolism [facility] Start: 01-01-2024 Catheterization of vein [facility] Start: 01-01-2024 Inhalation therapy procedure [facility] Start: 01-01-2024 Insertion of cathete r into peripheral vein [facility] Start: 01-01-2024 Measuring intake and output [facility] Start: 01-01-2024 Oxygen therapy [facility] Start: 01-01-2024 Providing care accor ding to standard [facility] Start: 01-01-2024 Referral to service [facility] Start: 01-01-2024 [facility] Start: 01-01-2024 Blood chemistry [facility] Start: 01-01-2024 Verification routine [facility] Start: 01-01-2024 Admission procedure [facility] Start: 01-01-2024 Hospital admission, emergency, from emergency room, medical nature [facility] Start: 01-01-2024 Patient referral to dietitian [facility] Start: 01-01-2024 [facility] Start: 10-28-2023 Behavioral Health Screening Behavioral Health Screening [facility] Start: 06-28-2023 Covid-19 Vaccine ( season) Covid-19 Vaccine ( season) [facility] Start: 06-28-2023 Covid-19 Vaccine ( season) Covid-19 Vaccine ( season) [facility] Start: 11-16-2021 Lipid panel Lipid Screening [facility] Start: 2019 RSV Vaccine (1 - 1-d ose 60+ series) RSV Vaccine (1 - 1-dose 60+ series) [facility] Start: 2019 RSV Vaccine (1 - Ris k 60-74 years 1-dose series) RSV Vaccine (1 - Risk 60-74 years 1-dose series) [facility] Start: 12-02-2017 End: 12-02-2017 Appointment Appointment [facility] Work Phone: Start: 11-16-2017 Hepatitis B surface antibody level LDL Cholesterol [facility] Start: 11-04-2017 End: 05-15-2017 *Hepatic Function Panel *Hepatic Function Panel [facility] Work Phone: Start: 11-04-2017 End: 05-15-2017 Lipid panel [AGGREGATE] *Lipid Profile CC PCP [facility] Work Phone: Start: 11-04-2017 End: 05-15-2017 *Hepatic Function Panel *Hepatic Function Panel [facility] Work Phone: Start: 11-04-2017 End: 05-15-2017 Lipid panel [AGGREGATE] *Lipid Profile CC PCP [facility] Work Phone: Start: 05-17-2017 End: 05-17-2017 *Hepatic Function Panel *Hepatic Function Panel [facility] Work Phone: Start: 05-17-2017 End: 05-17-2017 Follow Up Appt 6 months Follow Up Appt 6 months [facility] Work Phone: Start: 05-17-2017 End: 05-17-2017 Lipid panel [AGGREGATE] *Lipid Profile CC PCP [facility] Work Phone: Start: 05-17-2017 End: 05-17-2017 PFM PFM [facility] Work Phone: Start: 05-17-2017 End: 05-17-2017 Appointment Appointment [facility] Work Phone: Start: 05-17-2017 End: 05-17-2017 *Hepatic Function Panel *Hepatic Function Panel [facility] Work Phone: Start: 05-17-2017 End: 05-17-2017 Follow Up Appt 6 months Follow Up Appt 6 months [facility] Work Phone: Start: 05-17-2017 End: 05-17-2017 Lipid 1996 panel *Lipid Profile CC PCP [facility] Work Phone: Start: 05-17-2017 End: 05-17-2017 PFM PFM [facility] Work Phone: Start: 11-16-2016 End: 05-03-2017 *Hepatic Function Panel *Hepatic Function Panel [facility] Work Phone: Start: 11-16-2016 End: 05-07-2017 Ecg routine ecg w/least 12 lds w/i&r EKG (In office) [facility] Work Phone: Start: 11-16-2016 End: 11-21-2016 Follow Up Appt 6 months Follow Up Appt 6 months [facility] Work Phone: Start: 11-16-2016 End: 05-03-2017 Lipid panel [AGGREGATE] *Lipid Profile CC PCP [facility] Work Phone: Start: 11-16-2016 End: 11-21-2016 PFM PFM [facility] Work Phone: Start: 11-16-2016 End: 05-03-2017 *Hepatic Function Panel *Hepatic Function Panel [facility] Work Phone: Start: 11-16-2016 End: 05-07-2017 Electrocardiogram, complete EKG (In office) [facility] Work Phone: Start: 11-16-2016 End: 11-21-2016 Follow Up Appt 6 months Follow Up Appt 6 months [facility] Work Phone: Start: 11-16-2016 End: 05-03-2017 Lipid panel [AGGREGATE] *Lipid Profile CC PCP [facility] Work Phone: Start: 11-16-2016 End: 11-21-2016 PFM PFM [facility] Work Phone: Start: 05-16-2016 End: 05-16-2016 Follow Up Appt 6 months Follow Up Appt 6 months [facility] Work Phone: Start: 05-16-2016 End: 05-16-2016 PFM PFM [facility] Work Phone: Start: 05-16-2016 End: 05-16-2016 Follow Up Appt 6 months Follow Up Appt 6 months [facility] Work Phone: Start: 05-16-2016 End: 05-16-2016 PFM PFM [facility] Work Phone: Start: 04-19-2016 End: 04-19-2016 *CHLGC - Chlamydia/GC DNA Probe [id number] *CHLGC - Chlamydia/GC DNA Probe [id number] [facility] Work Phone: Start: 04-19-2016 End: 04-19-2016 *BONITA - Fungus, BONITA Prep *BONITA - Fungus, BONITA Prep [facility] Work Phone: Start: 04-19-2016 End: 04-19-2016 Urinalysis complete panel - Urine *UAC- Urinalysis, Complete w/ Micro [facility] Work Phone: Start: 04-19-2016 End: 04-19-2016 *CHLGC - Chlamydia/GC DNA Probe [id number] *CHLGC - Chlamydia/GC DNA Probe [id number] [facility] Work Phone: Start: 04-19-2016 End: 04-19-2016 *BONITA - Fungus, BONITA Prep *BONITA - Fungus, BONITA Prep [facility] Work Phone: Start: 04-19-2016 End: 04-19-2016 Urinalysis complete panel - Urine *UAC- Urinalysis, Complete w/ Micro [facility] Work Phone: Start: 04-02-2016 End: 04-19-2016 *CMP Complete Metabolic Panel *CMP Complete Metabolic Panel [facility] Work Phone: Start: 04-02-2016 End: 04-19-2016 Lipid panel [AGGREGATE] *Lipid Profile [facility] Work Phone: Start: 04-02-2016 End: 04-19-2016 *CMP Complete Metabolic Panel *CMP Complete Metabolic Panel [facility] Work Phone: Start: 04-02-2016 End: 04-19-2016 Lipid panel [AGGREGATE] *Lipid Profile [facility] Work Phone: Start: 09-16-2015 End: 09-16-2015 Follow Up Appt 6 months Follow Up Appt 6 months [facility] Work Phone: Start: 09-16-2015 End: 09-16-2015 PFM PFM [facility] Work Phone: Start: 09-16-2015 End: 09-16-2015 Follow Up Appt 6 months Follow Up Appt 6 months [facility] Work Phone: Start: 09-16-2015 End: 09-16-2015 PFM PFM [facility] Work Phone: Start: 01-07-2015 End: 01-07-2015 Follow Up Appt 6 months Follow Up Appt 6 months [facility] Work Phone: Start: 01-07-2015 End: 05-07-2017 Follow Up Appt Other Follow Up Appt Other [facility] Work Phone: Start: 01-07-2015 End: 01-07-2015 PFM PFM [facility] Work Phone: Start: 01-07-2015 End: 01-07-2015 Follow Up Appt 6 months Follow Up Appt 6 months [facility] Work Phone: Start: 01-07-2015 End: 05-07-2017 Follow Up Appt Other Follow Up Appt Other [facility] Work Phone: Start: 01-07-2015 End: 01-07-2015 PFM PFM [facility] Work Phone: Start: 06-30-2014 End: 06-30-2014 Follow Up Appt 6 months Follow Up Appt 6 months [facility] Work Phone: Start: 06-30-2014 End: 06-30-2014 PFM PFM [facility] Work Phone: Start: 06-30-2014 End: 06-30-2014 Follow Up Appt 6 months Follow Up Appt 6 months [facility] Work Phone: Start: 06-30-2014 End: 06-30-2014 PFM [facility] Work Phone: Start: 2014 Prostate specific an tigen measurement Prostate Cancer Screening Discussion [facility] Start: 12-14-2013 End: 12-14-2013 Follow Up Appt 6 months Follow Up Appt 6 months [facility] Work Phone: Start: 12-14-2013 End: 06-30-2014 Follow Up Appt Other Follow Up Appt Other [facility] Work Phone: Start: 12-14-2013 End: 12-14-2013 PFM PFM [facility] Work Phone: Start: 12-14-2013 End: 12-14-2013 Follow Up Appt 6 months Follow Up Appt 6 months [facility] Work Phone: Start: 12-14-2013 End: 06-30-2014 Follow Up Appt Other Follow Up Appt Other [facility] Work Phone: Start: 12-14-2013 End: 12-14-2013 PFM PFFlashstarts [facility] Work Phone: Start: 04-29-2013 End: 04-29-2013 Ecg routine ecg w/least 12 lds w/i&r EKG (In office) [facility] Work Phone: Start: 04-29-2013 End: 04-29-2013 Follow Up Appt 6 months Follow Up Appt 6 months [facility] Work Phone: Start: 04-29-2013 End: 05-07-2017 Follow Up Appt Other Follow Up Appt Other [facility] Work Phone: Start: 04-29-2013 End: 04-29-2013 PFM PFM [facility] Work Phone: Start: 04-29-2013 End: 04-29-2013 Electrocardiogram, complete EKG (In office) [facility] Work Phone: Start: 04-29-2013 End: 04-29-2013 Follow Up Appt 6 months Follow Up Appt 6 months [facility] Work Phone: Start: 04-29-2013 End: 05-07-2017 Follow Up Appt Other Follow Up Appt Other [facility] Work Phone: Start: 04-29-2013 End: 04-29-2013 PFM PFM [facility] Work Phone: Start: 01-26-2013 End: 02-15-2014 *Hepatic Function Panel *Hepatic Function Panel [facility] Work Phone: Start: 01-26-2013 End: 02-15-2014 Lipid panel [AGGREGATE] *Lipid Profile [facility] Work Phone: Start: 01-26-2013 End: 02-15-2014 *Hepatic Function Panel *Hepatic Function Panel [facility] Work Phone: Start: 01-26-2013 End: 02-15-2014 Lipid panel [AGGREGATE] *Lipid Profile [facility] Work Phone: Start: 09-29-2012 End: 08-30-2015 *Hepatic Function Panel *Hepatic Function Panel [facility] Work Phone: Start: 09-29-2012 End: 05-07-2017 Follow Up Appt 6 months Follow Up Appt 6 months [facility] Work Phone: Start: 09-29-2012 End: 08-30-2015 Lipid panel [AGGREGATE] *Lipid Profile [facility] Work Phone: Start: 09-29-2012 End: 08-30-2015 *Hepatic Function Panel *Hepatic Function Panel [facility] Work Phone: Start: 09-29-2012 End: 05-07-2017 Follow Up Appt 6 months Follow Up Appt 6 months [facility] Work Phone: Start: 09-29-2012 End: 08-30-2015 Lipid panel [AGGREGATE] *Lipid Profile [facility] Work Phone: Start: 02-28-2012 End: 08-06-2012 *Hepatic Function Panel *Hepatic Function Panel [facility] Work Phone: Start: 02-28-2012 End: [...] 08-06-2012 *Hepatic Function Panel *Hepatic Function Panel [facility] Work Phone: Start: 02-28-2012 End: 02-28-2012 Electrocardiogram, complete EKG (In office) [facility] Work Phone: Start: 02-28-2012 End: 09-29-2012 Follow Up Appt 6 months Follow Up Appt 6 months [facility] Work Phone: Start: 02-28-2012 End: 08-06-2012 Lipid panel [AGGREGATE] *Lipid Profile [facility] Work Phone: Start: 2009 Shingrix Vaccine (1 of 2) Camargo grix Vaccine (1 of 2) [facility] Start: 2004 Prostate specific an tigen measurement Prostate Cancer Screening Discussion [facility] Start: 2004 Screening for malign ant neoplasm of colon [facility] Start: 1994 Lipid panel Lipid Screening [facility] Start: 1989 Zoledronic acid therapy Alpha- 1 Antitrypsin Deficiency Screening [facility] Start: 1978 Pneumococcal Vaccine : 50+ (1 of 2 - PCV) Pneumococcal Vaccine: 50+ (1 of 2 - PCV) [facility] Start: 1978 Urine microalbumin profile DTaP,Tdap,Td Vaccine (1 - Tdap) [facility] Start: 1977 Annual 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 adri Disease Visit Annual PCP Team Chronic Disease Visit [facility] Start: 1977 Anxiety Screening Anxiety Screening [facility] Start: 1977 BP Controlled (<130/80) BP Controlle d (<130/80) [facility] Start: 1977 Depression Screening Depression Scre ening [facility] Start: 1977 Hepatitis B surface antibody level LDL Cholesterol [facility] Start: 1977 Hepatitis C screening Hepatitis C Sc reening [facility] Start: 1977 HIV screening HIV Screening [facility] Start: 1977 Spirometry Spirometry [facility] Start: 1965 Pneumococcal Vaccine : 65+ (1 of 2 - PCV) Pneumococcal Vaccine: 65+ (1 of 2 - PCV) [facility] Start: 1959 Abdominal aortic ane urysm screening Abdominal Aortic Aneurysm Screening [facility] Anion gap measurement [facility] BUN/Creatinine ratio [facility] Calcium [Mass/volume ] in Serum or Plasma [facility] Carbon dioxide, tota l [Moles/volume] in Serum or Plasma [facility] Chloride [Moles/volu me] in Serum or Plasma [facility] Creatinine [Moles/vo lume] in Serum or Plasma [facility] CT Chest W contrast IV CT CHEST W IVCON Radiology Routine Pleural effusion 03/13/2024 11:35 AM EDT [facility] Work Phone: Glucose [Mass/volume ] in Serum or Plasma [facility] End: 04-29-2025 LUNG DIFFUSION CAPACITY (DLCO) LUNG DIFFUSION CAPACITY (DLCO) PFT Routine Pleural plaque Centrilobular emphysema (HCC) 1 Occurrences starting 03/30/2024 until 04/29/2025 [facility] Comment on above: 1 Occurrences starti ng 03/30/2024 until 04/29/2025 End: 04-29-2025 LUNG VOLUMES LUNG VOLUMES PFT Routine Pleural plaque Centrilobular emphysema (HCC) 1 Occurrences starting 03/30/2024 until 04/29/2025 [facility] Comment on above: 1 Occurrences starti ng 03/30/2024 until 04/29/2025 Measurement of renal function [facility] Patient Education HYPERLIPIDEMIA [facility] Work Phone: Patient referral [facility] Work Phone: Potassium [Moles/vol ume] in Serum or Plasma [facility] End: 02-18-2025 Renal function 2000 panel - Serum or Plasma RENAL FUNCTION PANEL Lab Routine Hyponatremia Every 3 months for 8 Occurrences starting 02/19/2024 until 02/18/2025 [facility] Comment on above: Every 3 months for 8 Occurrences starting 02/19/2024 until 02/18/2025 End: 11-18-2025 Renal function 2000 panel - Serum or Plasma RENAL FUNCTION PANEL Lab Routine Hyponatremia Every 3 months for 8 Occurrences starting 11/18/2024 until 11/18/2025 [facility] Work Phone: Comment on above: Every 3 months for 8 Occurrences starting 11/18/2024 until 11/18/2025 End: 04-29-2025 SIX MINUTE WALK SIX MINUTE WALK PFT Routine Pleural plaque Centrilobular emphysema (HCC) 1 Occurrences starting 03/30/2024 until 04/29/2025 [facility] Comment on above: 1 Occurrences starti ng 03/30/2024 until 04/29/2025 Sodium [Moles/volume ] in Serum or Plasma [facility] End: 04-29-2025 SPIROMETRY WITH DILATOR IF OBSTRUCTED SPIROMETRY WITH DILATOR IF OBSTRUCTED PFT Routine Pleural plaque Centrilobular emphysema (HCC) 1 Occurrences starting 03/30/2024 until 04/29/2025 [facility] Work Phone: Comment on above: 1 Occurrences starti ng 03/30/2024 until 04/29/2025 Urea nitrogen [Mass/volume] in Serum or Plasma [facility] End: 03-20-2025 XR Chest PA and Lateral XR CHEST 2V FRONTAL/LAT Radiology Routine Hyponatremia SIADH (syndrome of inappropriate ADH production) (HCC) 1 Occurrences starting 02/19/2024 until 03/20/2025 [facility] Comment on above: 1 Occurrences starti ng 02/19/2024 until 03/20/2025 XR Chest PA and Lateral XR CHEST 2V FRONTAL/LAT Radiology Routine Hyponatremia 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 2021 Private Health Insurance MMO [employer] PPO [id number] 2016 Unknown [id number] 2014 Unknown [id number] Private Health Insurance [id number] Unknown [id number] Unknown [id number] Unknown [id number] Unknown [id number] Unknown [id number] 462 Unknown [id number]. 462 Unknown [id number]. 462 Unknown [id number] 2.16.840.1.569228.3.579.2. 462 Unknown [id number] 2.16.840.1.792363.3.579.2. 462 Unknown [id number] 2.16.840.1.399766.3.579.2. 462 Unknown [id number] 2.16.840.1.448619.3.579.2. 462 Unknown [id number] 2.16.840.1.307355.3.579.2. 462 Unknown [id number] 2.16.840.1.295266.3.579.2. 462 Unknown [id number] 2.16.840.1.941493.3.579.2. 462 Unknown [id number]. 462 Unknown [id number]. 462 Social History Date Type Detail Facility Start: 10-02-2021 End: 01-01-2024 Tobacco smoking status MTIS Unknown if ever smoked [facility] Start: 11-02-2019 None [facility] Start: 11-02-2019 Spouse/ Signif icant Other [facility] Start: 1960 Sex Assigned At Male W [facility] Start: 03-10-2015 End: 02-23-2025 Tobacco smoking status NHIS Ex-smoker [facility] History of tobacco use Current smoker [facility] Start: 02-19-2024 End: 04-07-2024 Alcohol intake Current non-drinker of alcohol (finding) [facility] Start: 02-19-2024 End: 03-30-2024 History of Social function [facility] Start: 02-19-2024 End: 08-10-2025 Tobacco use panel [facility] Start: 1960 Sex Assigned At Not on file C [facility] Start: 09-28-2012 National Score (1-100), lower number is lower risk 69 [facility] Start: 01-13-2025 Sex Male (finding) [facility] Goals Date Patient Goal Desired Activity /State Functional Status Date Assessment Result Facility 01-02-2024 Functional status Activity Abili ty Independent [facility] Work Phone: 01-02-2024 Functional status Patient Activity Ambula emma [facility] Work Phone: 04-13-2015 Are you deaf, or do you have serious difficulty hearing No 04/13/2015 3:34 PM Hernán Ambrose [facility] 04-13-2015 Are you blind, or do you have serious difficulty seeing, even when wearing glasses No 04/13/2015 3:34 PM Hernán Ambrose [facility] 04-13-2015 Do you have serious difficulty walking or climbing stairs No 04/13/2015 3:34 PM Hernán Ambrose [facility] 04-13-2015 Do you have difficul ty dressing or bathing No 04/13/2015 3:34 PM Hernán Ambrose [facility] 04-13-2015 Because of a physica l, mental, or emotional condition, do you have difficulty doing errands alone such as visiting a physician's office or shopping No 04/13/2015 3:34 PM Hernán Ambrose [facility] Mental Status Date Assessment Result Facility 01-03-2024 Cognitive function Voice/Name [facility] Work Phone: 01-01-2024 Cognitive function Level Of Cons ciousness Awake;Alert;Appropriate;Fol lows Commands [facility] Work Phone: 04-13-2015 Because of a physica l, mental, or emotional condition, do you have serious difficulty concentrating, remembering, or making decisions No 04/13/2015 3:34 PM EDT Hernán Rhodes [facility] Clinical Notes 12-26-2009 to 05-21-2025 Patient InstructionsRubio Grimes MD - 05/21/2025 9:00 AM EDTTelephone Encounter - Maida Phillips MA - 03/30/2025 10:07 AM EDTTelephone Encounter - Maida Phillips MA - 03/30/2025 10:07 AM EDT Note Date & Type Note Facility 05-21-2025 Instructions Rubio Grimes MD - 05/21/2025 9:20 AM EDT We discussed your low sodium levels (hyponatremia): - Continue taking your sodium pills as prescribed: 2 pills, 3 times a day. You may take an additional dose at lunch if needed, especially during hot and humid weather or when you are physically active. - Restrict your fluid intake to 48 ounces per day. - Monitor your sodium levels every 3 months to ensure they remain at or above 130. If your sodium drops below 130, please contact our office immediately. - Be aware of symptoms of low sodium, such as fatigue, loss of appetite, excessive sleepiness, or weight loss. If these symptoms occur, please let us know. - Your low sodium may be related to your lung conditions, including asbestosis, emphysema, and interstitial lung disease. These conditions can contribute to hyponatremia. We discussed your lung conditions: - Your lung conditions include asbestosis, emphysema, and interstitial lung disease. These may contribute to your low sodium levels. - You recently had a CT scan through your family doctor. Please ensure that this scan is forwarded to your lung specialist for review. - Continue follow-up care with your lung specialist to monitor and manage these conditions. We discussed your blood pressure: - You are currently taking Lisinopril and a newly added blood pressure medication (2.5 mg once daily). Continue taking these as prescribed. - Your blood pressure appears stable, but we will continue to monitor it during your follow-up visits. Follow-Up: - Continue your current care plan, including sodium pills, fluid restriction, and regular monitoring of your sodium levels and lung health. - Follow up with your lung specialist to review your recent CT scan and discuss any necessary next steps. - Schedule your next sodium level check in 3 months. Please contact our office if you experience worsening symptoms or have any concerns about your care plan. documented in this encounter [facility] 05-21-2025 History of Presen t illness Narrative [facility] NEPHROLOG[facility]YPERTENSION [facility] SERVICE DATE: 05/21/2025 CHIEF COMPLAINT: Hyponatremia f/u HPI: 65-year-old male with medical history significant for Hypertension, [...] Continued on salt pills and fluid restriction. - 11/18/2024: Last seen by me. Was taking sqpu-[id number] sodium chloride pills. Offered to increase the dose of Atenolol to 50 mg daily; he wants to discuss with the Creative Strategist. 05/20/2025 Jorge A reports a history of hyponatremia for at least 5 years, with sodium levels typically in the 130s. 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 He restricts his fluid intake to 48-60 oz daily. He notes that his sodium levels tend to drop when he is ill, leading to symptoms such as fatigue, anorexia, and weight loss. He recalls a recent episode of a cough, pharyngitis, and a "cold" a few weeks ago, which preceded a drop in sodium levels to 131 mEq/L. Jorge A has been on lisinopril for approximately 15 years and was recently prescribed amlodipine 2.5 mg daily by his silk printer due to elevated blood pressure readings. He also has a history of asbestosis and emphysema, managed by a blending technician. He underwent a CT scan of the lungs about 2 months ago, with results pending review by his blending technician. PAST MEDICAL HISTORY: ACTIVE PROBLEM LIST Screening for Colon Cancer Siadh (Syndrome of Inappropriate Adh Production) (Hcc) Hyponatremia Essential Hypertension Acute Bronchospasm Carotid Bruit Chronic Obstructive Pulmonary Disease (Hcc) Atherosclerosis of Coronary Artery Bypass Graft History of Cardiac Catheterization History of Coronary Artery Bypass Surgery History of Endocrine Disorder Hyperlipidemia Influenza Osteoarthritis of Hand MEDICATIONS: sodium chloride soluble tablet 1 g Take 2 g by mouth three times a day. lisinopril (ZESTRIL) 10 mg tablet Take 20 mg by mouth once daily. atorvastatin (LIPITOR) 10 mg tablet Take 10 mg by mouth once daily. atenolol (TENORMIN) 25 mg tablet Take 25 mg by mouth once daily. coenzyme Q10 (H2Q COQ10) 200 mg/gram powd Take by mouth once daily. aspirin, enteric coated (ASPIRIN, ENTERIC COATED) 81 mg EC tablet Take 81 mg by mouth once daily. Aurora-3 Fatty Acids-Vitamin E (FISH OIL) 1,000 mg [...] easy bruising, easy bleeding PHYSICAL EXAM: BP 130/73 (BP Site: Right Arm, BP Position: Sitting, BP Cuff Size: Regular Adult) Pulse 75 Temp 36.4 C (97.6 F) Ht 173 cm (5' 8.11") Wt 67.1 kg (147 lb 14.9 oz) SpO2 97% BMI 22.42 kg/m BP - standardized method Pulse 1 BP #1: 144/78 2 BP #2 : 120/69 3 BP #3 : 126/72 Average Orthostatic vitals Supine Sitting Standing BP cuff location BP cuff size Comments for BP values First BP (right) First BP (left) General: Awake, not in distress. HENT: Normocephalic. Eyes: PERRL, Anicteric Neck:Trachea midline, No JVD Respiratory: Clear bilaterally. CV: RRR, No murmurs, rubs, or gallops Abdomen: Soft, non-distended. Extremities: Pedal edema absent. Skin: No rashes. Neurologic: Alert and oriented x 3, no focal deficits. Psychiatric: Cooperative, normal mood/affect. Last 14 BP Last 14 Encounter BP [...] tests reviewed for today's visit: No results for input(s): "NA", "K", "CHLOR", "CO2", "BUN", "CREAT", "GLUC", "ANION", "CA", "P", "MG" in the last 168 hours. Recent Labs 02/19/24 0915 COLOR Yellow CLARITY [...] interval not displayed. No results for input(s): "BUNRAT", "BUNPR", "BUNPO" in the last 168 hours. No results for input(s): "HEPSABQ" in the last 1440 hours. Invalid input(s): "HEPSABG" CT chest with contrast 03/18/2024 IMPRESSION: Multifocal [...] mg daily and atenolol 25 mg daily. Blood pressure is controlled. Euvolemic on exam. Dyslipidemia: On atorvastatin 5 mg daily. Pleural plaques: History of asbestos exposure. Apparently had a CT again done at OSH. Following up with Pulmonary. PLAN: Continue taking NaCl pills 2 gm TID. Continue with Fluid restriction at <48 oz a day Continue follow-up with your blending technician. Renal panel every 3 months Follow-up in 9 months. I spent a total of 31 minutes on the date of the service which included preparing to see the patient, [id number] patient care, completing clinical documentation, obtaining and/or reviewing separately obtained history, performing a medically appropriate examination, counseling and educating the patient/family/caregiver, and ordering medications, tests, or procedures. Patient will need a press tender long goods follow-up in renal clinic. SIGNATURE: Rubio Grimes MD, FACP, FASN PATIENT NAME: Jorge A Rivera CC: PRIMARY CARE PHYSICIAN: Jeferson Thomas MD documented in this encounter [facility] 05-21-2025 Note HNO ID: [id number] Author: RUBIO GRIMES MD Service: ? Author Type: Physician Type: Progress Notes Filed: 05/21/2025 10:00 Note Text: [facility] NEPHROLOG[facility]YPERTENSION [facility] SERVICE DATE: 05/21/2025 CHIEF COMPLAINT: Hyponatremia f/u HPI: 65-year-old male with medical history significant for Hypertension, [...] Continued on salt pills and fluid restriction. - 11/18/2024: Last seen by me. Was taking vawv-zwk-[id number] sodium chloride pills. Offered to increase the dose of Atenolol to 50 mg daily; he wants to discuss with the Creative Strategist. 05/20/2025 Jorge A reports a history of hyponatremia for at least 5 years, with sodium levels typically in the 130s. 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 He restricts his fluid intake to 48-60 oz daily. He notes that his sodium levels tend to drop when he is ill, leading to symptoms such as fatigue, anorexia, and weight loss. He recalls a recent episode of a cough, pharyngitis, and a "cold" a few weeks ago, which preceded a drop in sodium levels to 131 mEq/L. Jorge A has been on lisinopril for approximately 15 years and was recently prescribed amlodipine 2.5 mg daily by his silk printer due to elevated blood pressure readings. He also has a history of asbestosis and emphysema, managed by a blending technician. He underwent a CT scan of the lungs about 2 months ago, with results pending review by his blending technician. PAST MEDICAL HISTORY: ACTIVE PROBLEM LIST Screening for Colon Cancer Siadh (Syndrome of Inappropriate Adh Production) (Hcc) Hyponatremia Essential Hypertension Acute Bronchospasm Carotid Bruit Chronic Obstructive Pulmonary Disease (Hcc) Atherosclerosis of Coronary Artery Bypass Graft History of Cardiac Catheterization History of Coronary Artery Bypass Surgery History of Endocrine Disorder Hyperlipidemia Influenza Osteoarthritis of Hand MEDICATIONS: sodium chloride soluble tablet 1 g Take 2 g by mouth three times a day. lisinopril (ZESTRIL) 10 mg tablet Take 20 mg by mouth once daily. atorvastatin (LIPITOR) 10 mg tablet Take 10 mg by mouth once daily. atenolol (TENORMIN) 25 mg tablet Take 25 mg by mouth once daily. coenzyme Q10 (H2Q COQ10) 200 mg/gram powd Take by mouth once daily. aspirin, enteric coated (ASPIRIN, ENTERIC COATED) 81 mg EC tablet Take 81 mg by mouth once daily. Aurora-3 Fatty Acids-Vitamin E (FISH OIL) 1,000 mg [...] easy bruising, easy bleeding PHYSICAL EXAM: BP 130/73 (BP Site: Right Arm, BP Position: Sitting, BP Cuff Size: Regular Adult) Pulse 75 Temp 36.4 ?C (97.6 ?F) Ht 173 cm (5' 8.11") Wt 67.1 kg (147 lb 14.9 oz) SpO2 97% BMI 22.42 kg/m? BP - standardized method Pulse 1 BP #1: 144/78 2 BP #2 : 120/69 3 BP #3 : 126/72 Average Orthostatic vitals Supine Sitting Standing BP cuff location BP cuff size Comments for BP values First BP (right) First BP (left) General: Awake, not in distress. HENT: Normocephalic. Eyes: PERRL, Anicteric Neck:Trachea midline, No JVD Respiratory: Clear bilaterally. CV: RRR, No murmurs, rubs, or gallops Abdomen: Soft, non-distended. Extremities: Pedal edema absent. Skin: No rashes. Neurologic: Alert and oriented x 3, no focal deficits. Psychiatric: Cooperative, normal mood/affect. Last 14 BP Last 14 Encounter BP Readings: Date: BP: 08/13/2024 173/87 05/21/2024 146/78 04/07/2024 129/75 03/30/2024 146/66 02/19/2024 131/79 04/13/2015 122/64 03/10/2015 116/76 03/10/2015 124/80 Last 2 Encounter Wt Readings: Date: Wt: 08/13/2024 64.9 kg (143 lb) 05/21/2024 65 kg (143 lb 4.8 oz) General: Awake, not in distress. HENT: Normocephalic. Eyes: PERRL, Anicteric Neck:Trachea midline, No JVD Respiratory: Clear b (more content not included)... [facility] 03-30-2025 Telephone encounter Note Fax received from [facility] for LCS Dr. Thomas CT Chest Lung LCS. Placed in Dr. Samuel's office to be viewed. [facility] 03-30-2025 Miscellaneous Notes Fax received from [facility] for LCS Dr. Thomas CT Chest Lung LCS. Placed in Dr. Samuel's office to be viewed. documented in this encounter [facility] 2025 Radiology Diagnostic study note [facility] Imaging Services [address] [place] [id number] Lung Screening MR#: [id number] Acct: [id number] Name: JORGE A RIVERA Rep #: [id number] : 1960 M 64 From: Ruma Centeno MD PCP: Dr. Jeferson Thomas MD Status: BRUNILDA MARY Study:Low Dose CT Lung Screening Date of Exam : 03/25/25 Exam# [id number] Ordering Dr: Jeferson Thomas MD EXAM: CT Chest, Lung Cancer Screening [...] in 12 months is recommended. Reading Location: [facility] CC: Dr. Jeferson Thomas MD ~ Scooping Machine Tender: Signed [facility] 11-18-2024 Instructions Rubio Grimes MD - 11/18/2024 9:22 AM EST Continue with Fluid restriction at <48 oz a day Labs every 3 months. documented in this encounter [facility] 11-18-2024 History of Presen t illness Narrative [facility] NEPH[facility]OLOG[facility]YPERTENSION [facility] SERVICE DATE: 11/18/2024 [...] Cancer Siadh (Syndrome of Inappropriate Adh Production) ([facility]) Hyponatremia Essential Hypertension Acute Bronchospasm Carotid Bruit [...] Take 81 mg by mouth once daily. Aurora-3 Fatty Acids-Vitamin E (FISH OIL) 1,000 mg [...] interval not displayed. No results for input(s): "BUNRAT", "BUNPR", "BUNPO" in the last 168 hours. No results for input(s): "HEPSABQ" in the last 1440 hours. Invalid input(s): "HEPSABG" CT chest with contrast 03/18/2024 IMPRESSION: Multifocal [...] daily; he wants to discuss with the Creative Strategist. Advised to make sure the qlxg-knm-euogauc pill that he is taking is sodium chloride 1 g pills. If not, please let us know. Continue with Fluid restriction at <48 oz a day Renal panel every 3 months Follow-up in 9 months. I spent a total of 31 minutes on the date of the service which included preparing to see the patient, iprq-zw-enbz patient care, completing clinical documentation, obtaining and/or reviewing separately obtained history, performing a medically appropriate examination, counseling and educating the patient/family/caregiver, and ordering medications, tests, or procedures. Patient will need a press tender long goods follow-up in renal clinic. SIGNATURE: Rubio Grimes MD, FACP, FASN PATIENT NAME: Jorge A Rivera CC: PRIMARY CARE PHYSICIAN: Jeferson Thomas MD documented in this encounter [facility] 11-18-2024 Note HNO ID: [id number] Author: RUBIO GRIMES MD Service: ? Author Type: Physician Type: Progress Notes Filed: 11/18/2024 09:26 Note Text: [facility] NEPHROLOGY AND HYPERTENSION [facility] SERVICE DATE: 11/18/2024 [...] Take 81 mg by mouth once daily. Aurora-3 Fatty Acids-Vitamin E (FISH OIL) 1,000 mg [...] interval not displayed. No results for input(s): "BUNRAT", "BUNPR", "BUNPO" in the last 168 hours. No results for input(s): "HEPSABQ" in the last 1440 hours. Invalid input(s): "HEPSABG" CT chest with contrast 03/18/2024 IMPRESSION: Multifocal calcified and noncalcified pleural plaques. Clinical correlation recommended. Additionally, 6-12 month follow-up recommended Extensive emphysema a (more content not included)... [facility] 10-08-2024 Evaluation note Diagnosis Onset Date Resolution Peripheral vascular disease noneactive October 08 024 9:18am [facility] Work Phone: 1(514) 493-845411-06-2024 Telephone encounter Note* Telephone Encounter - Ramon [...] bases are clear. No significant pericardial effusion [facility] Work Phone: 1(180) 496-290311-06-2024 Miscellaneous Notes* Telephone Encounter - Ramon Samuel [...] No significant pericardial effusion [facility] Telephone encounter Note * Telephone Encounter - Maida Phillips MA - 09/01/2024 8:[address] of Abdomen/Pelvis with Contrast and Cardiometabolic report received from [facility] Placed in Dr. Samuel's office to view. [facility]11-05-2024 Miscellaneous Notes* Telephone Encounter - Maida Phillips MA - 09/01/2024 8:[address] of Abdomen/Pelvis with Contrast and Cardiometabolic report received from [facility] Placed in Dr. Samuel's office to view. [facility] in [facility]24 Telephone encounter Note * Telephone Encounter - Mercy Worthy RN - 08/28/2024 4:00 PM EDT Faxed to Dr. Thomas's office per request [facility]11-01-2024 Miscellaneous Notes* Telephone Encounter - Mercy Dallas RN - 08/28/2024 4:00 PM EDT Faxed to Dr. Thomas's office per request * Telephone Encounter - Hair Adames APRN.CATHODE WASHER - 08/28/2024 3:49 PM EDT He may [...] you may also fax to them at [phone]. [facility] Telephone encounter Note * Telephone Encounter - Hair Adames APRN.NEAL - 08/28/2024 3:49 PM EDT He may have CT without renal concern or need for special hydration [facility] Work Phone: [phone] Telephone encounter Note* Telephone Encounter - Mercy Worthy RN - 08/28/2024 3:48 PM EDT Routing to Hair Adames to advise. [facility]11-01-2024 Telephone encounter Note* Telephone Encounter - Ivory Hunter - 08/28/2024 3:[address] Fong office needing to know if the Patient can have a CT with contrast please advise! If they dont answer you may also fax to them at [phone]. [facility]10-17-2024 Instructions* Patient Instructions* Hair Adames, MASTER OCEAN.CATHODE WASHER - 08/13/2024 9:26 AM EDT PLAN: -Please [...] improve our service to you by calling [phone] You may be receiving a survey regarding your care today. If you do, please take a few minutes to fill it out and send it back. It would be greatly appreciated. 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 Aurora-3 Fatty Acids-Vitamin E (FISH OIL) 1,000 mg [...] CT scan -hx asbestos exposure as commercial lines manager -following with pulmonology Metabolic/electrolytes: K+- 4.1 wnl [...] up as scheduled with Dr Sydney Adames CATHODE WASHER I spent a total of 35 minutes on the date of the service which included preparing to see the patient, dhnk-zm-rzua patient care, completing clinical documentation, performing a medically appropriate examination, counseling and educating the patient/family/caregiver and ordering medications, tests, or procedures. Pt will need continued regular follow up (G2211) with nephrology documented in [facility]10-[facility]-2024 NoteHNO ID: [id number] Author: HAIR ADAMES APRN.NEAL Service: ? 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 Aurora-3 Fatty Acids-Vitamin E (FISH OIL) 1,000 mg [...] -Chest xray with pl (more content not included)...[facility] 08-06-2024 Miscellaneous Notes* Telephone Encounter - [...] next appointment on 08/13 documented [facility] Telephone encounter Note * Telephone Encounter - [...] day before his next appointment on 08/13 [facility]07-25-2024 Instructions* Patient Instructions* Hair Adames, MASTER OCEAN.CATHODE WASHER - 05/21/2024 9:36 AM EDT PLAN: -Please [...] blood sodium- I have found it on [employer] fairly inexpensively Please bring a complete list [...] improve our service to you by calling [phone] You may be receiving a survey regarding your care today. If you do, please take a few minutes to fill it out and send it back. It would be greatly appreciated. 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 Aurora-3 Fatty Acids-Vitamin E (FISH OIL) 1,000 mg [...] CT scan -hx asbestos exposure as commercial lines manager -following with pulmonology Metabolic/electrolytes: K+- 4.2 wnl [...] blood sodium- I have found it on [employer] fairly inexpensively Hair Adames CNP I spent a total of 39 minutes on the date of the service which included preparing to see the patient, orbk-[id number] patient care, completing clinical documentation, performing a medically appropriate examination, counseling and educating the patient/family/caregiver and ordering medications, tests, or procedures. Pt will need continued regular follow up (G2211) with nephrology documented in this encounterR[facility]06-[facility]24 Procedure note* Tara Lino RPFT - 04/07/2024 1:31 PM EDTAssociated [...] Total Time Spent (min) 171.6 cm (5' 7.56") 64.4 kg (142 lb) R Index Finger [...] TIME: 1:31 PM Associated attestation - Rosibel Mckeon MD - 04/07/2024 4:46 PM EDT The [...] as needed. No oxygen need. SIGNATURE: Rosibel Mckeon MD PATIENT NAME: Jorge A Rivera DATE: April 07, 2024 TIME: 4:46 PM [facility] Procedure note* Tara Lino RPFT - 04/07/2024 1:31 PM EDTAssociated [...] Total Time Spent (min) 171.6 cm (5' 7.56") 64.4 kg (142 lb) R Index Finger [...] Minute Walk Trend (Previous Encounters) None SIGNATURE: Tara GINNA Lino PATIENT NAME: Jorge A Rivera DATE: April 07, 2024 TIME: 1:31 PM Associated attestation - Rosibel Mckeon MD - 04/07/2024 4:46 PM EDT The [...] as needed. No oxygen need. SIGNATURE: Rosibel Mckeon MD PATIENT NAME: Jorge A Rivera DATE: April 07, 2024 TIME: 4:46 PM documented [facility] encounter[facility] History of Present illness Narrative* Tara Lino RPFT - 04/07/2024 1:27 PM EDT PULM FUNCTION: Provider: Ramon Samuel MD Assisting Tech: Tara Lino RPFT Spirometry: 1 DLCO: 1 LV - Box: 1 6 MW: 1 documented in this encounterR[facility] Telephone encounter Note * Telephone Encounter - Maida Phillips MA - 03/30/2024 1:24 PM EDT I spoke with Jacklyn at [facility] in Images she is currently sending the CT Scan of Chest from 11/03/2019 thru PACS. She unable to locate any PFT testing. States I=only labs were done. [facility]06-03-2024 Miscellaneous Notes* Telephone Encounter - Maida Phillips MA - 03/30/2024 1:24 PM EDT I spoke with Jacklyn at [facility] in [place] she is currently sending the CT Scan of Chest from 11/03/2019 thru PACS. She unable to locate any PFT testing. States I=only labs were done. * Telephone Encounter - Ramon Samuel MD - 03/30/2024 12:47 PM EDT Please request the ct chest done at [facility] in 11/03/2019 on a CD. Also please request the breathing test done on 2019 Thanks [place] documented in this encounterR[facility]06-[facility]24 Telephone encounter Note * Telephone Encounter - Ramon Samuel MD - 03/30/2024 12:47 PM EDT Please request the ct chest done at [facility] in 11/03/2019 on a CD. Also please request the breathing test done on 2019 Thanks [place] [facility] Work Phone: 1(453) 618-220606-03-2024 History of Present illness Narrative* Ramon Samuel MD - 03/30/2024 12:11 PM EDT Images from the original note were not included. [facility]IC[facility] OFFICE VISIT CONSULT 03/30/2024 Patient Name: Jorge A Rivear PRIMARY CARE PHYSICIAN: No primary care provider [...] Asbestos: significant exposure Silica: No significant exposure [place]: No significant exposure Mold: No significant exposure [...] Take 81 mg by mouth once daily. Aurora-3 Fatty Acids-Vitamin E (FISH OIL) 1,000 mg [...] 146/66 Pulse 72 Ht 177.8 cm (5' 10") Wt 66 kg (145 lb 8.1 oz) SpO2 98% BMI 20.88 kg/m General appearance: Well appearing, alert, in no acute distress, well-hydrated, well nourished. Eyes: PERRLA Neck: no palpable masses Lungs: Lungs clear to auscultation. No wheezing, rhonchi, rales Heart: "RRR without murmur, gallop, or rubs. No ectopy" , normal peripheral pulses, no peripheral edema [...] or any previous visit (from the past 16765 hour(s)). XR CHEST 2V FRONTAL/LAT Result Date: 02/20/2024 IMPRESSION: Pleural thickening along the left lateral hemithorax. CT chest recommended for further evaluation ACTIONABLE RESULT: FOLLOW-UP Acuity: Actionable Findings: Thoracic-Other Routing Code: CT_1 Recommendation: CT Chest WO IVCON Time Frame: At the discretion of the clinical team. COMMUNICATION: Results will be communicated with the ordering provider via [employer] [employer] staff message or phone message by [employer] within 2 business days of report finalization. --END OF FINDING-- Scooping Machine Tender: PSCB Transcribe Date/Time: Feb 20 2024 1:48P Dictated [...] be communicated with the ordering provider via [employer] staff message or phone message by [employer] within 2 business days of report finalization. --END OF FINDING-- Scooping Machine Tender: FABRICE Transcribe Date/Time: Mar 18 2024 8:21A Dictated by : CASANDRA RITTER MD This examination wasinterpreted and the report reviewed and electronically signed by: CASANDRA RITTER MD on March 1867654:45AM EST Immunizations: Unknown ASSESSMENT/PLAN ASSESSMENT/PLAN: 1. Pleural plaque - ICD9: 511.0, ICD10: J92.9 (primary diagnosis) Calcified and non calcified seen on ct chest 01/2024 Ct chest 2020: no mention of pleural plaques Will request the ct chest from [place] on a CD Repeat ct chest yearly [...] MD Ramon Machado MD, MICHELLE Staff, Respiratory [place] [facility] CC: No primary care provider on file. Rubio Grimes MD documented in this encounterRiverside [facility]05-22-2024 Telephone encounter Note * Telephone Encounter - Rubio Grimes MD - 03/18/2024 10:07 AM EDT Results of the CT of the chest discussed with the patient. He has bilateral pleural plaques,; whichcould be from asbestosis exposure. I asked him to make an appointment with pulmonary for a follow-up on this. He will repeat his sodium next week. Verbalized understanding. [facility]05-22-2024 Miscellaneous Notes* Telephone Encounter - Rubio Grimes MD - 03/18/2024 10:07 AM EDT Results of the CT of the chest discussed with the patient. He has bilateral pleural plaques,; whichcould be from asbestosis exposure. I asked him to make an appointment with pulmonary for a follow-up on this. He will repeat his sodium next week. Verbalized understanding. documented in this encounterRiverside [facility]05-17-2024 History of Present illness Narrative* Jennifer Landers RT(Venancio) - 03/13/2024 11:20 AM EDT Radiology Service [...] PATIENT PRESENTS WITH AN IMPLANTABLE OR ATTACHED MANAGER ACQUISITION: No RADIOLOGY DEPARTMENT: CT; Exam(s) Completed: Chest PERIPHERAL IV DATA: 22g left ac. D/c after scan SIGNED BY: RT Spike(Venancio) March 13, 2024 11:34 AM documented in this encounterRiverside [facility] Hospital04-25-2024 Telephone encounter Note * Telephone Encounter - [...] contrast ordered and advised to see pulmonary. [facility]04-25-[facility]24 Miscellaneous Notes* Telephone Encounter - Rubio Grimes [...] advised to see pulmonary. documented in this encounterRiverside [facility] Hospital04-25-2024 Telephone encounter Note * Telephone Encounter - Nelia Vinson LPN - 02/20/2024 4:20 PM EDT Message forwarded to Dr. Grimes [facility]04-25-2024 Miscellaneous Notes* Telephone Encounter - Nelia Vinson LPN - 02/20/2024 4:20 PM EDT Message forwarded to Dr. Grimes * Telephone Encounter - Jean Paul Harper RN - 02/20/2024 4:08 PM EDT Pt returning call from to go over lab results. Pt # [phone] documented in this encounterRivers[facility]04-25-2024 Telephone encounter Note * Telephone Encounter - Jean Paul Harper RN - 02/20/2024 4:08 PM EDT Pt returning call from to go over lab results. Pt # [phone] [facility]04-24-[facility] History of Present illness Narrative* Hortensia Herrera [...] PATIENT PRESENTS WITH AN IMPLANTABLE OR ATTACHED MANAGER ACQUISITION: No RADIOLOGY DEPARTMENT: General X-ray: Exam(s) Completed: Chest X-Ray PERIPHERAL IV DATA: Not applicable SIGNED BY: ADALID Copeland February 19, 2024 9:09 AM documented in this encounterRiverside [facility] Hospital04-24-2024 Instructions* Patient Instructions* Rubio Grimes MD - 02/19/2024 8:42 AM EDT Fluid restriction of 1500 ml per day. Labs today, then every 3 months Schedule a Chest Xray. documented in this encounterRiverside [facility]04-24-2024 History of Present illness Narrative* Rubio Grimes MD - 02/19/2024 8:00 AM EDT [facility] NEPHROLOGY & HYPERTENSION [facility] SERVICE DATE: 02/19/2024 [...] in 2019 he was admitted to [facility] with Na of 117; He was advised to fluid restrict to around 1.5L a day. He was being seen by Dr Guan (with [facility] at [place]) who up'ed his restriction to around 1.8L [...] they were normal. [facility] PAST MEDICAL HISTORY: PAST MEDICAL HISTORY [...] Take 81 mg by mouth once daily. Aurora-3 Fatty Acids-Vitamin E (FISH OIL) 1,000 mg [...] Pulse 70 Resp16 Ht 177.8 cm (5' 10") Wt 64.7 kg (142 lb 10.2 oz) [...] for today's visit: No results found for: "GLUC", "K", "NA", "CHLOR", "CO2", "CREAT", "BUN", "ANION", "CA", "GFR", "EGFRAA", "NAAGFR" ASSESSMENT: Chronic hyponatremia: Past records reviewed; Urine [...] which included preparing to see the patient, glyb-fr-kghw patient care, completing clinical documentation, obtaining and/or reviewing separately obtained history, performing a medically appropriate examination, counseling and educating the pat ient/family/caregiver, and ordering medications, tests, or procedures. SIGNATURE: Rubio Grimes MD PATIENT NAME: Jorge A Rivera OFFICE NUMBER: [phone] CC: REFERRING PROVIDER: No ref. provider found PRIMARY CARE PHYSICIAN: No primary care provider on file. documented in this encounterRiverside [facility] Hospital03-08-2024 Progress note Author [facility] January 03, 2024 8:16am Note Date/Time January 03, 2024 8:15 am [facility] Medical Records Department [address] [place] [address] Progress Note 01/03/24 0811 MR#: [id number] Acct: [id number] Name: JORGE A RIVERA Rep #:[id number] : 1960 63 From: Judy Hansen PCP: Dr. Rick Gaffney, DO Status:ADM IN Location: [place] [address] Progress Note sodium improved to 126 after received one dose of tolvaptan 15mg last night. vss acute hyponatremia due to SIADH improved. Recheck level as outpt in 1 week. ok to stop iv fluids when taking po well. influenza on tamiflu 01/03/24 0816 <Electronically signed by Judy Guan DO> [facility] Cosigner Signature (if applicable): CC: ~ Signed [facility] Work Phone: 1(918) 772-553603-07-2024 Consult note Author [facility] January 02, 2024 5:59pm Note Date/Time January 02, 2024 5:53 pm [facility] Medical Records Department [address] [place] [address] Consultation - Nephrology 01/02/24 1218 MR#: [id number] Acct: [id number] Name: JORGE A RIVERA Rep #:[id number] : 1960 63 From: Judy Hansen PCP: Dr. Rick Gaffney, DO Status:ADM IN Location: [place] [address] Assessment & Plan Assessment/Plan (1) Hyponatremia: PLAN: [...] home meds (5) Atherosclerotic heart disease of [place] coronary artery without angina pectoris: QUALIFIERS: [place] vs. transplanted heart: [place] heart QualifiedCode(s): I25.10 - Atherosclerotic heart disease of [place] coronary artery without angina pectoris HPI Consult Data Date of Consult: 01/02/24 HPI Narrative Reason for Consultation: hyponatremia HPI Narrative: JORGE A RIVERA, is a 63 M who presents to [facility] ED for persistent weakness, lightheadedness, poor appetite, nausea since Saturday. Seen in urgent care and wasdiagnosed with influenza treated wtih tamiflu. Complains of myalgias, fever, chills, cough with wheezing. Sodium low at 116. Hx of SIADH with sodium at 129. Currently on NSS. Creatinine 0.54. Denies sick contacts at home. 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 [facility] Medical History Atherosclerotic heart disease of [place] coronary artery without angina pectoris Carotid bruit [...] (Fish Oil Concentrate) 1,000 mg PO QDAY [facility] 11/29/17 [History Last Taken 11/01/19] atorvastatin 10 [...] (Auto) 74.5 H, Lymph % (Auto) 15.7 L,Mckenzie % (Auto) 8.7, Eos % (Auto) 0.4, [...] (Auto) 70.3 H, Lymph % (Auto) 19.8, [place]ckenzie % (Auto) 8.6, Eos % (Auto) 0.5, [...] 3.6, Albumin/Globulin Ratio 0.9, TSH 0.63 01/02/24 1759 <Electronically signed by Judy Guan DO> Cosigner Signature (if applicable): CC: Dr. Judy Guan DO; Dr. Josee Guan DO; Dr. Rick Gaffney DO~ Signed [facility] Work Phone: 1(296) 399-383003-07-2024 Progress note Author Bull Gusman [facility] January 03, 2024 1:51pm Note Date/Time January 02, 2024 10:1 5am [facility] Medical Records Department [address] [place] [address] Progress Note - Hospitalist 01/02/24 1011 MR#: [id number] Acct: [id number] Name: JORGE A RIVERA Rep #:[id number] : 1960 63 From: Bull Grayson PCP: Dr. Rick Gaffney DO Status:ADM IN Location: [place] [address] Reason for Visit Reason for Visit: Diagnoses [...] (Auto) 74.5 H, Lymph % (Auto) 15.7 L,Mckenzie % (Auto) 8.7, Eos % (Auto) 0.4, [...] (Auto) 70.3 H, Lymph % (Auto) 19.8, Mckenzie % (Auto) 8.6, Eos % (Auto) 0.5, [...] RCA and SVG to DX, SVG to [facility] per Dr. Rubio -Continue home aspirin -Continue [...] infection -Quit smoking in 2009 but has 55-pkdw-qyzr history DVT prophylaxis -Lovenox subcu daily CODE STATUS -Full code is verified on admission Charges/Coding Visit Charges Inpatient E&M: 50645 Subs Hosp L2 01/02/24 6247 <Electronically signed by Bull Gusman MD> Cosigner [...] Cosigner Signature (if applicable): cc: ~* Signed [facility] Work Phone: 1(337) 656-104303-06-2024 Discharge summary Author Dereck Delvalle [facility] January 01, 2024 4:49pm Note Date/Time January 01, 2024 1:23 pm [facility] Medical Records Department [address] [place] [address] Emergency Department Summary 01/01/24 MR#: [id number] Acct: [id number] Name: JORGE A RIVERA Rep #:[id number] : 1960 63 From: Dereck Delvalle MD [...] Prior similar symptoms: No Recent Illness/Hospitalization: Yes [facility] Medical History Atherosclerotic heart disease of [place] coronary artery without angina pectoris Carotid bruit [...] Oil Concentrate) 1,000 mg PO QDAY heart [facility] 11/29/17 [History Last Taken 11/01/19] atorvastatin 10 [...] Impression: Acute hyponatremia, Atherosclerotic heart disease of [place] coronary artery without angina pectoris, Influenza, Generalized [...] your Primary Care Provider. Call [facility] ([phone]) or report to the closest Emergency Room. Call 911 if necessary. 01/01/24 1649 <Electronically signed by Dereck Delvalle MD> Cosigner Signature (if applicable): CC: Dr. Rick Gaffney DO ~ Signed [facility] Work Phone: 1(284) 431-789403-06-2024 History and physical note Author Josee Guan [facility] January 01, 2024 4:49pm Note Date/Time January 01, 2024 4:35 pm [facility] Medical Records Department [facility] [place] [address] H&P Exam - Hospitalist 01/01/24 1625 MR#: [id number] Acct: [id number] Name: MIGUELJORGE A CHRISTY Rep #:[id number] : 1960 63 From: Josee Guan DO PCP: Dr. Rick Gaffney DO Status:REG ER Location: ED HPI - General General Date of Admission: 01/01/24 Date of Service: 01/01/24 Chief Complaint: Generalized weakness HPI Narrative JORGE A RIVERA, is a 63 M who presented to the emergency department at [facility] on 01/01/2024. Patient stated he started feeling [...] of IV fluids in the emergency department. [facility] Medical History Atherosclerotic heart disease of [place] coronary artery without angina pectoris Carotid bruit [...] (Fish Oil Concentrate) 1,000 mg PO QDAY [facility] 11/29/17 [History Last Taken 11/01/19] atorvastatin 10 [...] RCA and SVG to DX, SVG to [facility] per Dr. Rubio -Continue home aspirin -Continue [...] infection -Quit smoking in 2009 but has 40-gguf-cuee history DVT prophylaxis -Lovenox subcu daily CODE STATUS -Full code is verified on admission Charges/Coding Visit Charges Inpatient E&M: 05106 Init Hosp L2 01/01/24 2861 <Electronically signed by Josee Guan DO> Cosigner Signature (if applicable): CC: Dr. Josee Guan DO; Dr. Rick Gaffney DO~ Signed [facility] Work Phone: 1(321) [phone] Discharge summary Author Dereck Delvalle [facility] January 01, 2024 4:49pm Note Date/Time January 01, 2024 1:23 pm [facility] Medical Records Department [address] [place] [address] Emergency Department Summary 01/01/24 MR#: [id number] Acct: [id number] Name: JORGE A RIVERA Rep #:[id number] : 1960 63 From: Dereck Delvalle MD PCP: Dr. Rick Gaffney, Status:REG ER Location: ED HPI History of [...] Patient reports onset of symptoms this past weekend. He was seen on December 28 at [...] Prior similar symptoms: No Recent [facility] Medical History Atherosclerotic heart disease of [place] coronary artery without angina pectoris Carotid bruit [...] Impression: Acute hyponatremia, Atherosclerotic heart disease of [place] coronary artery without angina pectoris, Influenza, Generalized [...] your Primary Care Provider. Call [facility] ([phone]) or report to the closest Emergency Room. Call 911 if necessary. 01/01/24 1649 <Electronically signed by Dereck Delvalle MD> Cosigner Signature (if applicable): CC: Dr. Rick Gaffney DO ~ Signed [facility] Work Phone: 1([phone]) 453-237103-01-2010 Evaluation note* Diagnosis Onset Date Resolution Status History of coronary artery bypass surgery December, acute Atherosclerotic heart diseas e of [place] coronary artery without angina pectoris chronic Essential hypertension chron ic Hyperlipidemia [facility] Work Phone: 1(921) 185-693803-01-2010 Evaluation note* Diagnosis Onset Date Resolution Status History of coronary artery bypass surgery December, acute Essential hypertension chron ic Hyperlipidemia [facility] Work Phone: 1(928) 731-386003-01-2010 Evaluation note* Diagnosis Onset Date Resolution Status Admit Date History of coronary artery b ypass surgery December, acute March 02, 2025 8: 08am PAD (peripheral artery disease) acut e March 02, 2025 8:08am Atherosclerotic heart diseas e of [place] coronary artery without angina pectoris chronic March 02, 2025 8: 08am Hyperlipidemia chronic March 02, 025 8:08am Hypertension chronic March 02 8:08am [facility] Work Phone: Consult note Author Erasto Perdue [facility] January 03, 2024 2:28pm Note Date/Time January 03, 2024 2:28 pm [facility] Medical Records Department [address] [place] [address] [place] [address] Counseling Note - Pharmacy 01/03/24 1427 MR#: [id number] Acct: [id number] Name: JORGE A RIVERA Rep #:[id number] : 1960 63 From: Erasto Perdue PCP: Dr. Rick Gaffney, DO Status:ADM IN Location: [place] [address] Pharmacy [place] Med Reconciliation Pharmacy Service has performed discharge [...] 1,000 mg PO QDAY [facility] 11/29/17 atorvastatin 10 mg tablet See Rx Instructions .Route .COMPLEX #45 tabs 01/07/23 lisinopril 10 mg tablet See Rx Instructions .Route .COMPLEX #90 tabs 07/11/23 oseltamivir 75 mg capsule (Tamiflu) 75 mg PO Q12H 5 days #10 caps 12/29/23 atenolol 25 mg tablet 25 mg PO QDAY #90 tabs 12/31/23 01/03/24 1428 <Electronically signed by Erasto pascal> Date _ Erasto Perdue Cosigner Signature (if applicable): Date CC: ~ Signed [facility] Work Phone: Discharge summary Author Bull Gusman [facility] January 03, 2024 1:46pm Note Date/Time January 03, 2024 1:43 pm [facility] Medical Records Department [address] [place] [address] Instructions for Home/Discharge Instructions 01/03/24 1307 MR#: [id number] Acct: [id number] Name: JORGE A RIVERA Rep #:[id number] : 1960 63 From: Bull Grayson PCP: [...] DO; Dr. Rick Gaffney DO ~ Signed [facility] Work Phone: Discharge summary Author Bull Gusman [facility] January 03, 2024 1:50pm Note Date/Time January 03, 2024 1:47 pm [facility] Medical Records Department [address] [place] [address] Discharge Summary 01/03/24 1346 MR#: [id number] Acct: [id number] Name: JORGE A RIVERA Rep #:[id number] : 1960 63 From: Bull Grayson PCP: Dr. Rick Gaffney DO Status:ADM IN Location: [facility] [id number] Providers Date of Admission: 01/01/24 Primary [...] (primary) hypertension (5) Atherosclerotic heart disease of [place] coronary artery without angina pectoris: Status: Chronic Code(s): I25.10 - Atherosclerotic heart disease of [place] coronary artery without angina pectoris Qualifiers: [place] vs. transplanted heart: [place] heart Qualified Code(s): I25.10 -Atherosclerotic heart disease of [place] coronary artery without angina pectoris Plan Patient [...] sodium tablet. 01/02: Patient was seen by checkman. Patient had 15 mg 1 dose. His sodium increased from 1 22-1 26. Prior to that it was 116. Sodium tablet has been discontinued. IV fluid normal saline discontinued in the morning. Patient doesnot have neurological symptoms including headache, change in mental status confusion diplopia. Discussed with the checkman. Patient wants to go home and okay [...] RCA and SVG to DX, SVG to [facility] per Dr. Rubio -Continue home aspirin -Continue [...] infection -Quit smoking in 2009 but has 66-kxsn-tomw history DVT prophylaxis -Lovenox subcu daily CODE [...] Oil Concentrate) 1,000 mg PO QDAY heart [facility] 11/29/17 atorvastatin 10 mg tablet See Rx [...] % (Auto) 66.0, Lymph % (Auto) 22.5, Mckenzie % (Auto) 9.9, Eos % (Auto) 0.6, [...] Primary Care Provider: Rick Gaffney Consulting Providers: Jsoee Guan; Judy Guan Discharge Orders/Prescriptions Prescriptions: Continued [...] Self Care Charges/Coding Visit Charges Inpatient E&M: 19932 Disch Hosp >30min 01/03/24 1350 <Electronically signed by Bull Gusman MD> Cosigner Signature (if applicable): CC: Dr. Judy Guan DO; Dr. Rick Gaffney DO; Dr. Bull Gusman MD~ Signed [facility] Work Phone: Evaluation noteNo assessment information available [facility] Work Phone: Evaluation note* Diagnosis Onset Date Resolution Status Influenza acute Acute bronchospasm acute Acute hyponatremia acute Generalized weakness acute Hyponatremia acute Influenza acute Atherosclerotic heart diseas e of [place] coronary artery without angina pectoris chronic COPD (chronic obstructive pulmonary disease) chronic Essential hypertension chron ic History of SIADH chronic Hyperlipidemia chronic [facility] Work Phone: Evaluation note* Diagnosis Onset Date Resolution Status Influenza acute Acute bronchospasm acute Generalized weakness acute Hyponatremia acute Influenza acute Atherosclerotic heart diseas e of [place] coronary artery without angina pectoris chronic COPD (chronic obstructive pulmonary disease) chronic Essential hypertension chron ic Hyperlipidemia chronic Acute hyponatremia resolved [facility] Work Phone: Evaluation note* Diagnosis SIADH (syndrome of inappropriate ADH production) (HCC)- Primary Other disorders of neurohypophysis Hyponatremia Hyposmolality and/or hyponatremia Essential hypertension Unspecified essential hypertension [facility] Diagnosis Pleural thickening- Primary Pleurisy without mention of effusion or current tuberculosis SIADH (syndrome of inappropriate ADH production) (HCC) Other disorders of neurohypophysis documented [facility] this encounter [facility] Diagnosis Pleural effusion Unspecified pleural effusion [facility]* Diagnosis Pleural plaque- Primary Pleurisy without mention of effusion or current tuberculosis [facility]* Diagnosis Hyponatremia Hyposmolality and/or hyponatremia [facility]* Diagnosis Pleural plaque- Primary Pleurisy without mention of effusion or current tuberculosis Centrilobular emphysema (HCC) Other emphysema Interstitial pulmonary disease (HCC) Postinflammatory pulmonary fibrosis Ex-smoker Personal history of tobacco use, presenting hazards to health Hyponatremia Hyposmolality and/or hyponatremia [facility] Diagnosis Pleural plaque Pleurisy without mention of effusion or current tuberculosis Centrilobular emphysema (HCC) Other emphysema [facility] Diagnosis Pleural plaque Pleurisy without mention of effusion or current tuberculosis Centrilobular emphysema (HCC) Other emphysema [facility] Diagnosis Hyponatremia- Primary Hyposmolality and/or hyponatremia SIADH (syndrome of inappropriate ADH production) (HCC) Other disorders of neurohypophysis Essential hypertension Unspecified essential hypertension Other hyperlipidemia Pleural plaque Pleurisy without mention of effusion or current tuberculosis [facility] Diagnosis Hyponatremia Hyposmolality and/or hyponatremia SIADH (syndrome of inappropriate ADH production) (HCC) Other disorders of neurohypophysis [facility] Diagnosis SIADH (syndrome of inappropriate ADH production) (HCC)- Primary Other disorders of neurohypophysis [facility] Diagnosis Hyponatremia- Primary Hyposmolality and/or hyponatremia SIADH (syndrome of inappropriate ADH production) (HCC) Other disorders of neurohypophysis Essential hypertension Unspecified essential hypertension Other hyperlipidemia Pleural thickening Pleurisy without mention of effusion or current tuberculosis [facility] Diagnosis Hyponatremia- Primary Hyposmolality and/or hyponatremia SIADH (syndrome of inappropriate ADH production) (HCC) Other disorders of neurohypophysis Essential hypertension Unspecified essential hypertension [facility] Diagnosis Hyponatremia- Primary Hyposmolality and/or hyponatremia SIADH (syndrome of inappropriate ADH production) (HCC) Other disorders of neurohypophysis Essential hypertension Unspecified essential hypertension [facility] encounter [facility] Author Josee Guan [facility] January 01, 2024 4:49pm Note Date/Time January 01, 2024 4:35 pm [facility] Medical Records Department [address] [place] [id number] H&P Exam - Hospitalist 01/01/24 1625 MR#: [id number] Acct: [id number] Name: JORGE A RIVERA Rep #:[id number] : 1960 63 From: Josee Guan DO PCP: Dr. Rick Gaffney, Status:REG ER Location: ED HPI - General General Date of Admission: 01/01/24 Date of Service: 01/01/24 Chief Complaint: Generalized weakness HPI Narrative JORGE A RIVERA, is a 63 M who presented to the emergency department at [facility] on 01/01/2024. Patient stated he started feeling [...] of IV fluids in the emergency department. [facility] Medical History Atherosclerotic heart disease of [place] coronary artery without angina pectoris Carotid bruit [...] RCA and SVG to DX, SVG to [facility] per Dr. Rubio -Continue home aspirin -Continue [...] infection -Quit smoking in 2009 but has [id number] history DVT prophylaxis -Lovenox subcu daily CODE STATUS -Full code is verified on admission Charges/Coding Visit Charges Inpatient E&M: 34358 Init Hosp L2 01/01/24 5887 <Electronically signed by Josee Guan DO> Cosigner Signature (if applicable): CC: Dr. Josee Guan, ; Dr. Rick Gaffney, ~ Signed [facility] Work Phone: Reason for referral (narrative)No reason for referral information availableWSelect Medical Special[facility], Inc Work Phone: Chief Complaint and Reason for Visit Chief Complaint DRIVE THRU COVID EMMA T Chief Complaint INT LABS Chief Complaint 9 m fu Reason for Visit History of coronary artery bypass surgery Atherosclerotic heart disease of [place] coronary artery without angina pectoris Essential hypertension [...] weakness Hyponatremia Influenza Atherosclerotic heart disease of [place] coronary artery without angina pectoris COPD (chronic obstructive pulmonary disease) Essential hypertension History of SIADH Hyperlipidemia Chief Complaint INT LABS BA/FATIGUED/COUGH Weakness SEVERE HYPONATREMIA/GENERALIZED WEAKNESS SEVERE HYPONATREMIA/GENERALIZED WEAKNESS SEVERE HYPONATREMIA/GENERALIZED WEAKNESS Reason for Visit Influenza Acute bronchospasm Acute hyponatremia Generalized weakness Hyponatremia Influenza Atherosclerotic heart disease of [place] coronary artery without angina pectoris COPD (chronic obstructive pulmonary disease) Essential hypertension History of SIADH Hyperlipidemia Chief Complaint INT LABS BA/FATIGUED/COUGH Weakness SEVERE HYPONATREMIA/GENERALIZED WEAKNESS SEVERE HYPONATREMIA/GENERALIZED WEAKNESS SEVERE HYPONATREMIA/GENERALIZED WEAKNESS Reason for Visit Influenza Acute bronchospasm Generalized weakness Hyponatremia Influenza Atherosclerotic heart disease of [place] coronary artery without angina pectoris COPD (chronic obstructive pulmonary disease) Essential hypertension Hyperlipidemia Acute hyponatremia Chief Complaint INT LABS BA/FATIGUED/COUGH Weakness SEVERE HYPONATREMIA/GENERALIZED WEAKNESS SEVERE HYPONATREMIA/GENERALIZED WEAKNESS SEVERE HYPONATREMIA/GENERALIZED WEAKNESS DUE AROUND DATE LISTED Reason for Visit Influenza Acute bronchospasm Generalized weakness Hyponatremia Influenza Atherosclerotic heart disease of [place] coronary artery without angina pectoris COPD (chronic [...] 2025 8:08am Atherosclerotic heart diseas e of [place] coronary artery without angina pectoris March 02, [...] Coronary artery disease Unknown Diabetes mellitus Unknown Family Member Condition Full Brother Obesity Full Brother High blood pressure Full Brother Heart disease Full Brother COPD Full Brother Cancer Full Sister Liver disease Full Sister Heart disease Full Sister Diabetes - insulin d ependent Father Heart disease Father Mother Haines's Disease Mother Kidney disease Mother High blood pressure Mother Heart disease Mother Bleeding disorder Mother Family Member Condition Full Brother Obesity Full Brother High blood pressure Full Brother Heart disease Full Brother COPD Full Brother Cancer Full Sister Liver disease Full Sister Heart disease Full Sister Diabetes - insulin d ependent Father Heart disease Father Mother Haines's Disease Mother Kidney disease Mother High blood pressure Mother Heart disease Mother Bleeding disorder Mother Advance Directives Advance Directive Response Recorded Date/ Time Living Will No July 19, 2021 4:36pm Power of Treating Engineer Helper No June 4:36pm Advance Directive Response Recorded Date/ Time Living Will No July 19, 2021 3:36pm Power of Treating Engineer Helper No June 3:36pm Advance Directive Response Recorded Date/ Time Name of Medical Power of Treating Engineer Helper Bettina Rivera January 01, 2024 12:07pm Living Will Yes January 01, 2024 12:07pm Power of Treating Engineer Helper Yes December 31 12:07pm Advance Directive Response Recorded Date/ Time Name of Medical Power of Treating Engineer Helper Bettina Rivera January 01, 2024 5:48pm Living Will Yes January 01, 2024 5:48pm Power of Treating Engineer Helper Yes December 31 5:48pm Advance Directive Response Recorded Date/ Time Name of Medical Power of Treating Engineer Helper Bettina Rivera January 01, 2024 6:48pm Living Will Yes January 01, 2024 6:48pm Power of Treating Engineer Helper Yes December 31 6:48pm Advance Directive Response Recorded Date/ Time Living Will Yes January 01, 2024 6:48pm Do you have a Healthcare Power of Treating Engineer Helper? Yes January 01, 2024 6:48pm Reason for Referral Specialty Diagnoses / Procedures Referred By Contac t Referred To Contact Pulmonary and Critical Care Medicine Diagnoses Pleural thickening SIADH (syndrome of inappropriate ADH production) (HCC) Procedures CONSULT TO PULM/CRITICAL CARE OFFICE/OUTPATIENT [facility] [place] [address] [place] [id number] Referral ID Status Reason Start Date Expiration Date Visits Requested Visits Authorized [id number] Authorized PCP Requested Referral 02/20/2024 02/19/2025 1 1 Specialty Diagnoses / Procedures Referred By Contac t Referred To Contact Pulmonary and Critical Care Medicine Diagnoses Pleural plaque Procedures CONSULT TO PULM/CRITICAL CARE OFFICE/OUTPATIENT [facility] [address] [place] [address] [place] [address] Referral ID Status Reason Start Date Expiration Date Visits Requested Visits Authorized [id number] Authorized PCP Requested Referral 03/18/2024 03/18/2025 1 1 Specialty Diagnoses / Procedures Referred By Contac t Referred To Contact CT IMAGING Diagnoses Interstitial pulmonary disease (HCC) Procedures CT CHEST WO IVCON DIAGNOSTIC COMPUTED TOMOGRAPHY THORAX W/O CNTRST Ramon Samuel MD [address] [place] [address] Ct Imaging [place] [address] Referral ID Status Reason Start Date Expiration Date Visits Requested Visits Authorized [id number] Pending Review Auto-Generat ed Referral 03/30/2025 04/29/2025 1 1 Specialty Diagnoses / Procedures Referred By Contac t Referred To Contact [facility] Diagnoses Pleural plaque Centrilobular emphysema (HCC) Procedures SIX MINUTE WALK CARDIOPULMONARY EXERCISE STRESS Ramon Samuel MD [address] [place] [address] [address] Referral ID Status Reason Start Date Expiration Date Visits Requested Visits Authorized [id number] Authorized Auto-Generat ed Referral 03/30/2024 04/29/2025 1 1 Specialty Diagnoses / Procedures Referred By Contac t Referred To [facility] Diagnoses Pleural plaque Centrilobular emphysema (HCC) Procedures LUNG DIFFUSION CAPACITY (DLCO) DIFFUSING CAPACITY Ramon Samuel MD [address] [place] [phone] [address] Referral ID Status Reason Start Date Expiration Date Visits Requested Visits Authorized [id number] Authorized Auto-Generat ed Referral 03/30/2024 04/29/2025 1 1 Specialty Diagnoses / Procedures Referred By Contac t Referred To [facility] Diagnoses Pleural plaque Centrilobular emphysema (HCC) Procedures LUNG VOLUMES Ramon Samuel MD [address] [place] [address] [place] [phone] Referral ID Status Reason Start Date Expiration Date Visits Requested Visits Authorized [id number] Pending Review Auto-Generat ed Referral 03/30/2024 04/29/2025 1 1 Specialty Diagnoses / Procedures Referred By Contac t Referred To [facility] Diagnoses Pleural plaque Centrilobular emphysema (HCC) Procedures SPIROMETRY WITH DILATOR IF OBSTRUCTED BRNCDILAT RSPSE SPMTRY PRE&POST-BRNCDILAT ADMN Ramon Samuel MD [address] [place] [phone] [address] Referral ID Status Reason Start Date Expiration Date Visits Requested Visits Authorized [id number] Authorized Auto-Generat ed Referral 03/30/2024 04/29/2025 1 [...] may be documented in an alternate section No Information Available No Information Available Care Teams (unrecognized sec tion and content) Team Status: Active Member Role Status Dates Dr. Rick Gaffney DO Family Provider Active Dr. Rick Gaffney DO Primary Care Provider Active Team Status: Inactive Member Role Status Dates Dr. Rick Gaffney DO Primary Care Provider Active Dr. Judy Guan DO Attending Provider Active Team Status: Inactive Member Role Status Dates Dr. Rick Gaffney DO Primary Care Provider, Referrin g Provider Active Karla Boyer PA PA Attending Provider Active Team Status: Active Member Role Status Dates Dr. Rick Gaffney DO Primary Care Provider Active Karla VALENZUELA PA Attending Provider, Referr ing Provider Active Team Status: Inactive Member Role Status Dates Dr. Rick Gaffney DO Primary Care Provider Active Karla VALENZUELA PA Attending Provider, Referr ing Provider Active Team Status: Inactive Member Role Status Dates Dr. Rick Gaffney DO Primary Care Provider, Referrin g Provider Active Kurt Quintero SALT LIFTER, S[employer] LIFTER-C Attending Provider Active Team Status: Active Member [...] Other Provi carmen Active Dr. Judy Guan DO Other Provider Active Team Status: Inactive Member [...] Gaffney DO Family Provider Active Dr. Jeferson Thomas MD Primary Care Provider Active Team Status: Inactive Member Role Status Dates Dr. Judy Guan DO Attending Provider, Referring Leda seda Active Dr. Jeferson Thomas MD Primary Care Provider Active Proposal Coordinator Relationship Specialty Start Date End Date Jeferson Thomas MD [facility] [address] [place] [address] PCP - General Internal Medicine 03/30/24 Ramon Samuel MD [address] [place] [address] Pulmonary and Critical Care Medicine 03/30/24 Proposal Coordinator Relationship Specialty Start Date End Date Jeferson Thomas MD [address] [place] [address] [address] [place] [address] PCP - General Internal Medicine 03/30/24 Ramon Samuel MD [address] [place] [address] Pulmonary and Critical Care Medicine 03/30/24 Proposal Coordinator Relationship Specialty Start Date End Date Jeferson Thomas MD [address] [place] [address] [address] [place] [address] PCP - General Internal Medicine 03/30/24 Ramon Samuel MD [address] [place] [address] Pulmonary and Critical Care Medicine 03/30/24 Proposal Coordinator Relationship Specialty Start Date End Date Jeferson Thomas MD [address] [place] [address] 2 [place] [address] PCP - General Internal Medicine 03/30/24 Ramon Samuel MD [address] [place] [address] Pulmonary and Critical Care Medicine 03/30/24 Proposal Coordinator Relationship Specialty Start Date End Date Jeferson Thomas MD [address] [place] [address] 2 [place] [address] PCP - General Internal Medicine 03/30/24 Ramon Samuel MD [address] [place] [address] Pulmonary and Critical Care Medicine 03/30/24 Proposal Coordinator Relationship Specialty Start Date End Date Jeferson Thomas MD [address] [place] [address] [address] [place] [address] PCP - General Internal Medicine 03/30/24 Ramon Samuel MD [address] [place] [address] Pulmonary and Critical Care Medicine 03/30/24 Proposal Coordinator Relationship Specialty Start Date End Date Jeferson Thomas MD [address] [place] [address] 2 [place] [address] PCP - General Internal Medicine 03/30/24 Ramon Samuel MD [address] [place] [address] Pulmonary and Critical Care Medicine 03/30/24 Proposal Coordinator Relationship Specialty Start Date End Date Jeferson Thomas MD [address] [place] [address] 2 [place], [place] [address] PCP - General Internal Medicine 03/30/24 Ramon Samuel MD [address] [place] [address] Pulmonary and Critical Care Medicine 03/30/24 Proposal Coordinator Relationship Specialty Start Date End Date Jeferson Thomas MD [address] [facility] [address] [place] [address] PCP - General Internal Medicine 03/30/24 Ramon Samuel MD [address] [place] [address] Pulmonary and Critical Care Medicine 03/30/24 Proposal Coordinator Relationship Specialty Start Date End Date Jeferson Thomas MD [address] [facility] [address] [place] [address] PCP - General Internal Medicine 03/30/24 Ramon Samuel MD [address] [place] [address] Pulmonary and Critical Care Medicine 03/30/24 Team Status: Active Member Role Status Dates Dr. Jeferson Thomas MD Primary Care Provider Active Team Status: Inactive Member Role Status Dates Dr. Jeferson Thomas MD Referring Provider Active Start: October 08, 2024 End: October 08, 2024 BIANCA Garcia Attending Provider Active Star t: October 08, 2024 End: October 08, 2024 Team Status: Inactive Member Role Status Dates BIANCA Garcia Attending Provider Active Star t: November 06, 2024 End: November 06, 2024 BIANCA Garcia Referring Provider Active Star t: November 06, 2024 End: November 06, 2024 Dr. Jeferson Thomas MD Primary Care Provider Active Start: November 06, 2024 End: November 06, 2024 Team Status: Active Member Role Status Dates Dr. Jeferson Thomas MD Primary Care Provider Active Start: November 06, 2024 Dr. Damon Melendrez MD Attending Provider Active S tart: November 06, 2024 BIANCA Garcia Referring Provider Active Star t: November 06, 2024 Team Status: Inactive Member Role Status Dates Dr. Jeferson Thomas MD Primary Care Provider Active Start: December 11, 2024 End: December 11, 2024 Dr. Jeferson Thomas MD Attending Provider Active Start: December 11, 2024 End: December 11, 2024 Dr. Jeferson Thomas MD Referring Provider Active Start: December 11, 2024 End: December 11, 2024 Team Status: Inactive Member Role Status Dates Dr. Jeferson Thomas MD Primary Care Provider Active Start: December 14, 2024 End: December 14, 2024 Dr. Jeferson Thomas MD Attending Provider Active Start: December 14, 2024 End: December 14, 2024 Dr. Jeferson Thomas MD Referring Provider Active Start: December 14, 2024 End: December 14, 2024 Team Status: Inactive Member Role Status Dates Dr. Jeferson Thomas MD Primary Care Provider Active Start: December 31, 2024 End: December 31, 2024 Dr. Jeferson Thomas MD Attending Provider Active Start: December 31, 2024 End: December 31, 2024 Dr. Jeferson Thomas MD Referring Provider Active Start: December 31, 2024 End: December 31, 2024 Team Status: Inactive Member Role Status Dates Dr. Jeferson Thomas MD Primary Care Provider Active Start: February 19, 2025 End: February 19, 2025 Dr. Jeferson Thomas MD Attending Provider Active Start: February 19, 2025 End: February 19, 2025 Dr. Jeferson Thomas MD Referring Provider Active Start: February 19, 2025 End: February 19, 2025 Team Status: Inactive Member Role Status Dates Dr. Jeferson Thomas MD Primary Care Provider Active Start: February 23, 2025 End: February 23, 2025 Dr. Ángel Nichole MD Attending Provider Active S tart: February 23, 2025 End: February 23, 2025 Team Status: Inactive Member Role Status Dates Dr. Jeferson Thomas MD Primary Care Provider Active Start: March 02, 2025 End: March 02, 2025 Dr. Jeferson Thomas MD Referring Provider Active Start: March 02, 2025 End: March 02, 2025 Karla Boyer PA, PA Attending Provider Active Start: March 02, 2025 End: March 02, 2025 Team Status: Inactive Member Role Status Dates Dr. Jeferson Thomas MD Primary Care Provider Active Start: March 17, 2025 End: March 17, 2025 Karla Boyer PA, PA Attending Provider Active Start: March 17, 2025 End: March 17, 2025 Karla Boyer PA, PA Referring Provider Active Start: March 17, 2025 End: March 17, 2025 Team Status: Active Member Role Status Dates Dr. Jeferson Thomas MD Primary Care Provider Active Start: March 17, 2025 Karla Boyer PA, PA Referring Provider Active Start: March 17, 2025 Karla Boyer PA, PA Other Provider Active Start: March 17, 2025 Dr. Ángel Nichole MD Attending Provider Active S tart: March 17, 2025 Team Status: Inactive Member Role Status Dates Dr. Jeferson Thomas MD Primary Care Provider Active Start: March 25, 2025 End: March 25, 2025 Dr. Jeferson Thomas MD Attending Provider Active Start: March 25, 2025 End: March 25, 2025 Dr. Jeferson Thomas MD Referring Provider Active Start: March 25, 2025 End: March 25, 2025 Proposal Coordinator Relationship Specialty [place] [address] [place] [address] [address] [place], [place] [id number] PCP - General Internal Medicine 03/30/24 Ramon Samuel MD [address] [place] [address] Pulmonary and Critical Care Medicine 03/30/24 Proposal Coordinator Relationship Specialty Start Date End Date Jeferson Thomas MD [address] [facility] [address] [place] [address] PCP - General Internal Medicine 03/30/24 Ramon Samuel MD [address] [place] [address] Pulmonary and Critical Care Medicine 03/30/24 Team Status: Active Member Role/Relationship Status Dates Dr. Jeferson Thomas MD Primary Care Provider Active Team Status: Inactive Member Role/Relationship Status Dates Dr. Jeferson Thomas MD Primary Care Provider Active Start: February 19, 2025 End: February 19, 2025 Dr. Jeferson Thomas MD Attending Provider Active Start: February 19, 2025 End: February 19, 2025 Dr. Jeferson Thomas MD Referring Provider Active Start: February 19, 2025 End: February 19, 2025 Team Status: Inactive Member Role/Relationship Status Dates Dr. Jeferson Thomas MD Primary Care Provider Active Start: February 23, 2025 End: February 23, 2025 Dr. Ángel Nichole MD Attending Provider Active S tart: February 23, 2025 End: February 23, 2025 Team Status: Inactive Member Role/Relationship Status Dates Dr. Jeferson Thomas MD Primary Care Provider Active Start: March 02, 2025 End: March 02, 2025 Dr. Jeferson Thomas MD Referring Provider Active Start: March 02, 2025 End: March 02, 2025 Karla VALENZUELA, PA Attending Provider Active Start: March 02, 2025 End: March 02, 2025 Team Status: Inactive Member Role/Relationship Status Dates Dr. Jeferson Thomas MD Primary Care Provider Active Start: March 17, 2025 End: March 17, 2025 Karla Boyer PA, PA Attending Provider Active Start: March 17, 2025 End: March 17, 2025 Karla Boyer PA, PA Referring Provider Active Start: March 17, 2025 End: March 17, 2025 Team Status: Active Member Role/Relationship Status Dates Dr. Jeferson Thomas MD Primary Care Provider Active Start: March 17, 2025 Karla Boyer PA, PA Referring Provider Active Start: March 17, 2025 Karla Boyer PA, PA Other Provider Active Start: March 17, 2025 Dr. Ángel Nichole MD Attending Provider Active S tart: March 17, 2025 Team Status: Inactive Member Role/Relationship Status Dates Dr. Jeferson Thomas MD Primary Care Provider Active Start: March 25, 2025 End: March 25, 2025 Dr. Jeferson Thomas MD Attending Provider Active Start: March 25, 2025 End: March 25, 2025 Dr. Jeferson Thomas MD Referring Provider Active Start: March 25, 2025 End: March 25, 2025 Team Status: Inactive Member Role/Relationship Status Dates Dr. Jeferson Thomas MD Primary Care Provider Active Start: May 09, 2025 End: May 09, 2025 Dr. Jeferson Thomas MD Attending Provider Active Start: May 09, 2025 End: May 09, 2025 Proposal Coordinator Relationship Specialty Start Date End Date Jeferson Thomas MD [address] [facility] [address] [place], [place] [id number]- PCP - General Internal Medicine 03/30/24 Ramon Samuel MD [address], [place] [id number] Pulmonary and Critical Care Medicine 03/30/24 Proposal Coordinator Relationship Specialty Start Date End Date Jeferson Thomas MD [address] [facility] [address] [place], [place] [id number] PCP - General Internal Medicine 03/30/24 Ramon Samuel MD [address] [place] [address] Pulmonary and Critical Care Medicine 03/30/24 Source Comments (unrecognize d section and content) In the event this informatio n is protected by the Federal Confidentiality of Alcohol and Drug Abuse Patient Records regulations: The Federal rules restrict any use of the information to criminally investigate or prosecute any alcohol or drug abuse patient.[facility] the event this information is protected by the Federal Confidentiality of Alcohol and Drug Abuse Patient Records regulations: The Federal rules restrict any use of the information to criminally investigate or prosecute any alcohol or drug abuse patient.[facility] the event this information is protected by the Federal Confidentiality of Alcohol and Drug Abuse Patient Records regulations: The Federal rules restrict any use of the information to criminally investigate or prosecute any alcohol or drug abuse patient.[facility] the event this information is protected by the Federal Confidentiality of Alcohol and Drug Abuse Patient Records regulations: The Federal rules restrict any use of the information to criminally investigate or prosecute any alcohol or drug abuse patient.[facility] the event this information is protected by the Federal Confidentiality of Alcohol and Drug Abuse Patient Records regulations: The Federal rules restrict any use of the information to criminally investigate or prosecute any alcohol or drug abuse patient.[facility] the event this information is protected by the Federal Confidentiality of Alcohol and Drug Abuse Patient Records regulations: The Federal rules restrict any use of the information to criminally investigate or prosecute any alcohol or drug abuse patient.[facility] HospitalIn the event this information is protected by the Federal Confidentiality of Alcohol and Drug Abuse Patient Records regulations: The Federal rules restrict any use of the information to criminally investigate or prosecute any alcohol or drug abuse patient.[facility] HospitalIn the event this information is protected by the Federal Confidentiality of Alcohol and Drug Abuse Patient Records regulations: The Federal rules restrict any use of the information to criminally investigate or prosecute any alcohol or drug abuse patient.[facility] the event this information is protected by the Federal Confidentiality of Alcohol and Drug Abuse Patient Records regulations: The Federal rules restrict any use of the information to criminally investigate or prosecute any alcohol or drug abuse patient.[facility] HospitalIn the event this information is protected by the Federal Confidentiality of Alcohol and Drug Abuse Patient Records regulations: The Federal rules restrict any use of the information to criminally investigate or prosecute any alcohol or drug abuse patient.[facility] HospitalIn the event this information is protected by the Federal Confidentiality of Alcohol and Drug Abuse Patient Records regulations: The Federal rules restrict any use of the information to criminally investigate or prosecute any alcohol or drug abuse patient.[facility] HospitalIn the event this information is protected by the Federal Confidentiality of Alcohol and Drug Abuse Patient Records regulations: The Federal rules restrict any use of the information to criminally investigate or prosecute any alcohol or drug abuse patient.[facility] HospitalIn the event this information is protected by the Federal Confidentiality of Alcohol and Drug Abuse Patient Records regulations: The Federal rules restrict any use of the information to criminally investigate or prosecute any alcohol or drug abuse patient.[facility] HospitalIn the event this information is protected by the Federal Confidentiality of Alcohol and Drug Abuse Patient Records regulations: The Federal rules restrict any use of the information to criminally investigate or prosecute any alcohol or drug abuse patient.[facility] HospitalIn the event this information is protected by the Federal Confidentiality of Alcohol and Drug Abuse Patient Records regulations: The Federal rules restrict any use of the information to criminally investigate or prosecute any alcohol or drug abuse patient.[facility] HospitalIn the event this information is protected by the Federal Confidentiality of Alcohol and Drug Abuse Patient Records regulations: The Federal rules restrict any use of the information to criminally investigate or prosecute any alcohol or drug abuse patient.[facility] HospitalIn the event this information is protected by the Federal Confidentiality of Alcohol and Drug Abuse Patient Records regulations: The Federal rules restrict any use of the information to criminally investigate or prosecute any alcohol or drug abuse patient.[facility] HospitalIn the event this information is protected by the Federal Confidentiality of Alcohol and Drug Abuse Patient Records regulations: The Federal rules restrict any use of the information to criminally investigate or prosecute any alcohol or drug abuse patient.[facility] HospitalIn the event this information is protected by the Federal Confidentiality of Alcohol and Drug Abuse Patient Records regulations: The Federal rules restrict any use of the information to criminally investigate or prosecute any alcohol or drug abuse patient.[facility] HospitalIn the event this information is protected by the Federal Confidentiality of Alcohol and Drug Abuse Patient Records regulations: The Federal rules restrict any use of the information to criminally investigate or prosecute any alcohol or drug abuse patient.[facility] HospitalIn the event this information is protected by the Federal Confidentiality of Alcohol and Drug Abuse Patient Records regulations: The Federal rules restrict any use of the information to criminally investigate or prosecute any alcohol or drug abuse patient.[facility] HospitalIn the event this information is protected by the Federal Confidentiality of Alcohol and Drug Abuse Patient Records regulations: The Federal rules restrict any use of the information to criminally investigate or prosecute any alcohol or drug abuse patient.[facility] HospitalIn the event this information is protected by the Federal Confidentiality of Alcohol and Drug Abuse Patient Records regulations: The Federal rules restrict any use of the information to criminally investigate or prosecute any alcohol or drug abuse patient.[facility] HospitalIn the event this information is protected by the Federal Confidentiality of Alcohol and Drug Abuse Patient Records regulations: The Federal rules restrict any use of the information to criminally investigate or prosecute any alcohol or drug abuse patient.[facility] HospitalIn the event this information is protected by the Federal Confidentiality of Alcohol and Drug Abuse Patient Records regulations: The Federal rules restrict any use of the information to criminally investigate or prosecute any alcohol or drug abuse patient.[facility] Reason for Visit (unrecogniz ed section and content) right hand pain, Follow-up b y complaint Reason Comments Consult [facility] Specialty Diagnoses / Procedures Referred By Contac t Referred To Contact CT IMAGING Diagnoses Pleural effusion Procedures CT CHEST W IVCON DIAGNOSTIC COMPUTED TOMOGRAPHY THORAX [place] [address] [place] [address] [address] [place] [address] Referral ID Status Reason Start Date Expiration Date V isits Requested Visits Authorized [id number] Closed Auto-Generate d Referral 02/20/2024 03/21/2025 1 1 Reason Comments Results Reason Comments Orders Reason Comments New Patient New lung nodule on C T scan Specialty Diagnoses / Procedures Referred By Contac t Referred To Contact Pulmonary and Critical Care Medicine Diagnoses Pleural plaque Procedures CONSULT TO PULM/CRITICAL CARE OFFICE/OUTPATIENT NEW HIGH MDM 60 [place] [address] [facility] [place] [address] Referral ID Status Reason Start Date Expiration Date V isits Requested Visits Authorized [id number] Closed PCP Requested Referral 03/18/2024 03/18/2025 1 1 Reason Comments Spirometry Specialty Diagnoses / Procedures Referred By Contac t Referred [facility] Diagnoses Pleural plaque Centrilobular emphysema (HCC) Procedures SPIROMETRY WITH DILATOR IF OBSTRUCTED BRNCDILAT RSPSE SPMTRY PRE&POST-BRNCDILAT ADMN Ramon Samuel MD [address] [place] [address] [address] Referral ID Status Reason Start Date Expiration Date V isits Requested Visits Authorized [id number] Closed Auto-Generate d Referral 03/30/2024 04/29/2025 1 1 Specialty Diagnoses / Procedures Referred By Contac t Referred To [facility] Diagnoses Pleural plaque Centrilobular emphysema (HCC) Procedures LUNG VOLUMES Ramon Samuel MD [address] [place] [address] [address] Referral ID Status Reason Start Date Expiration Date V isits Requested Visits Authorized [id number] Closed Auto-Generate d Referral 10/28/2023 10/27/2024 1 1 Specialty Diagnoses / Procedures Referred By Contac t Referred To [facility] Diagnoses Pleural plaque Centrilobular emphysema (HCC) Procedures LUNG DIFFUSION CAPACITY (DLCO) DIFFUSING CAPACITY Ramon Samuel MD [address] [place] [address] [address] Referral ID Status Reason Start Date Expiration Date V isits Requested Visits Authorized [id number] Closed Auto-Generate d Referral 03/30/2024 04/29/2025 1 1 Specialty Diagnoses / Procedures Referred By Contac t Referred To [facility] Diagnoses Pleural plaque Centrilobular emphysema (HCC) Procedures SIX MINUTE WALK CARDIOPULMONARY EXERCISE STRESS Ramon Samuel MD [address] [place] [address] [address] Referral ID Status Reason Start Date Expiration Date V isits Requested Visits Authorized [id number] Closed Auto-Generate d Referral 03/30/2024 04/29/2025 [address] questions Reason Comments Patient Update Reason Comments Follow Up Reason Comments Results (unrecognized sect ion and content) No Status Records FoundNo Status Records Found INFORMATION SOURCE (unrecogn ized section and content) DATE CREATED AUTHOR 05/17/2025 [facility] DATE CREATED AUTHOR AUTHOR'S ANDREA HODGES 05/22/2025 [facility] FOR RECORDS PERTAINING TO PATIENTS WHO ARE [...] BE BASED ON THE PRIMARY CLINICAL RECORDS. [facility]. provides no warranty or guarantee of the accuracy or completeness of information in this document.
[2025-08-25 11:41] LABS: AST(SGOT) 27 U/L (<=37); Alanine Aminotransfer ALT/SGPT 20 U/L (<=46); Albumin, Serum 4.2 g/dL (3.4-4.8); Alkaline Phosphatase 78 U/L (40-129); Bilirubin, Direct 0.40 mg/dL (0.00-0.30); Cholesterol 159 mg/dL (<=200); Globulin 3.0 g/dL (2.2-4.2); Low Density Lipoprotein Calc. 78 mg/dL; Triglycerides 75 mg/dL; Very Low Density Lipoprotein 15 mg/dL (5-40); cholesterol:hdl ratio screen 2.39
== END | disposition home or self-care (01) ==
LOC: LAB 07:08
PROVIDERS: PCP Internal Medicine; Referring Provider Physician Assistant Medical; Visit Provider Physician Assistant Medical
DX: I25.10 Atherosclerotic heart disease of native coronary artery without angina pectoris (principal); E78.5 Hyperlipidemia, unspecified
CPT/HCPCS: 36415; 80061; 80076

== ENCOUNTER → 2025-08-31 | Outpatient (CLI) | payer OTHER, SELFPAY ==
[2025-08-31 10:24] LABS: Hematocrit 40.4 % (40-54); Hemoglobin 13.8 g/dL (13.0-16.5); Immature Granulocytes Count 0.030 X10^3/uL (0.0-0.0); Mean Corp Hgb Conc 34.2 g/dL (32-36); Mean Corpuscular Volume 94.8 fL (80-94); Mean Platelet Vol. 10.5 fl (6.2-12.0); NRBC Flagged by Analyzer 0 % (0-5); Platelet Count 228 K/mm3 (150-450); RBC Distribution Width CV 12.6 % (11.6-14.6); RBC Distribution Width SD 43.8 fl (35.1-43.9); Red Blood Count 4.26 M/mm3 (4.6-6.2); White Blood Count 8.2 K/mm3 (4.4-11.0)
[2025-08-31 10:50] LABS: Prothrombin Time (Protime)PT. 13.5 SECONDS (11.7-14.9)
[2025-08-31 10:51] LABS: Partial Thromboplast Time 28.7 Seconds (24.1-36.2)
[2025-08-31 11:20] LABS: Anion Gap 10 (5-15); BUN 18 mg/dL (4-19); BUN/Creat Ratio 23.4 RATIO (10-20); Calcium,Total 9.4 mg/dL (7.6-11.0); Carbon Dioxide 24.4 mmol/L (21.0-32.0); Chloride 98 mmol/L (98-108); Glucose 97 mg/dL (70-99); Potassium 4.4 mmol/L (3.3-5.1)
== END | disposition home or self-care (01) ==
PROVIDERS: PCP Internal Medicine; Referring Provider Physician Assistant Medical; Visit Provider Physician Assistant Medical
DX: R94.31 Abnormal electrocardiogram [ECG] [EKG] (principal); R53.83 Other fatigue; I25.10 Atherosclerotic heart disease of native coronary artery without angina pectoris; Z95.1 Presence of aortocoronary bypass graft
CPT/HCPCS: 36415; 80048; 85025; 85610; 85730

== ENCOUNTER 2025-09-21 10:35 | Observation (INO) | payer OTHER, SELFPAY ==
[2025-09-20 09:52] VITALS: BMI 21.5
[2025-09-21] VITALS (16 sets, daily range): BP systolic 97–144; BP diastolic 56–108; PULSE 69–79; RESP 15–18; TEMP 36.6; O2SAT 75–99
--- OUTSIDE RECORDS SUMMARY | 2025-09-21 07:02 | XMS RPT_ITS | CCD ---
Author Organization [facility] Care Team Providers Care Chief Of Staff Name Role Phone Aracely ROWLEY, Danitza Diego Unavailable Unavailable Valerie Medeiros Unavailable Unavailable Leon STRUCTURAL STEEL EQUIPMENT ERECTOR, Kurt Menon Unavailable BENJAMÍN Boyer, Karla Montiel Unavailable Nathan Medeirosumi Y Unavailable Unavailable Tyler Johnston Unavailable Unavailable Tyler Johnston Unavailable Unavailable Dr. Rick Gaffney Primary Care Provider [phone] Dr. Rick Gaffney Referring Provider [phone] BIANCA Araujo Attending Provider Dr. Rick Gaffney Primary Care Provider [phone] Dr. Rick Gaffney Referring Provider Dr. Jacques Blair Attending Provider [phone] Dr. Rick Gaffney Primary Care Provider [phone] Dr. Rick Gaffney Referring Provider Rosalind VALENZUELA, PA Karla Montiel Attending Provider Dr. Rick Gaffney Primary Care Provider [phone] Dr. Rick Gaffney Referring Provider [phone] Leon CARO, JEANINE Menon Attending Provider Dr. Dereck Delvalle Emergency Provider Dr. Josee Guan Attending Provider Dr. Joese Guan Admit Provider Dr. Josee Guan Other Provider Dr. Bull Gusman Attending Provider Dr. Bull Gusman Other Provider Dr. Judy Guan Other Provider Dr. Rick Gaffney Primary Care Provider Dr. Rick Gaffney Referring Provider [facility] STRUCTURAL STEEL EQUIPMENT ERECTOR, STRUCTURAL STEEL EQUIPMENT ERECTOR-Nuha Menon Attending Provider Dr. Dereck Delvalle Emergency Provider Dr. Josee Guan Attending Provider Dr. Josee Guan Admit Provider Dr. Josee Guan Other Provider Naseem, Dr. Gottlieb Attending Provider Naseem, Dr. Gottlieb Other Provider Dr. Judy Guan Other Provider Unavailable Primary Care Provider Unavailabl trav Samuel MD, Ramon Diego Unavailable Erlinda RODRIGUEZ, Jeferson Montiel Primary Care Provider Erlinda RODRIGUEZ, Dr. Soares Referring Provider Jodee Underwood Attending Provider Jodee Underwood Referring Provider Dr. Jeferson Thomas MD Primary Care Provider Dr. Damon Melendrez MD Attending Provider Dr. Jeferson Thomas MD Attending Provider Dr. Jeferson Thomas MD Primary Care Provider Dr. Jeferson Thomas MD Referring Provider Dr. Ángel Nichole MD Attending Provider Karla Bowman Attending Provider [phone] Karla Bowman Referring Provider [phone] Karla Bowman Other Provider [phone] Erlinda RODRIGUEZ, Dr. Soares Primary Care Provider Erlinda RODRIGUEZ, Dr. Soares Attending Provider [phone] Erlinda RODRIGUEZ, Dr. Soares Referring Provider SYDNEY, RUBIO Referring Unavailable BONEZZI, JEFERSON M Primary Care Unavailable HAIR ADAMES Attending Unavailable BONEZZI, JEFERSON M Primary Care Unavailable SYDNEY, RUBIO Referring Unavailable BONEZZI, JEFERSON M Primary Care Unavailable SYDNEY, RUBIO Referring Unavailable BONEZZI, JEFERSON M Primary Care Unavailable SYDNEY, RUBIO Attending Unavailable SELF Referring Unavailable BONEZZI, JEFERSON M Primary Care Unavailable BONEZZI, JEFERSON M Primary Care Unavailable SYDNEY, RUBIO Referring Unavailable BONEZZI, JEFERSON M Primary Care Unavailable SYDNEY, RUBIO Referring Unavailable SYDNEY, RUBIO Referring Unavailable BONEZZI, JEFERSON M Primary Care Unavailable SYDNEY, RUBIO Attending Unavailable Emma BUTTS, Therese Diego Unavailable Bella RODRIGUEZ, Jayn Hansen Unavailable [phone] Jeferson Thomas MD Unavailable Bonezzi, Jeferson Primary Care Unavailable Judy Guan Attending Unavailable Bonezzi, Jeferson Primary Care Unavailable Mitchell, Jodee Referring Unavailable Damon Melendrez Attending Unavailable Bonezzi, Jeferson Primary Care Unavailable Dayanara, [place] Attending Unavailable Karla Boyer Consulting Unavailabl e Karla Boyer Referring Unavailabl e Bonezzi, Jeferson Attending Unavailable Bonezzi, Jeferson Primary Care Unavailable Bonezzi, Jeferson Referring Unavailable Bonezzi, Jeferson Primary Care Unavailable Bonezzi, Jeferson Referring Unavailable Karla Boyer Attending Unavailabl e Bonezzi, Jeferson Referring Unavailable Mitchell, Jodee Attending Unavailable Bonezzi, Jeferson Primary Care Unavailable Dayanara, Ángel Attending Unavailable Bonezzi, Jeferson Primary Care Unavailable Bonezzi, Jeferson Referring Unavailable Karla Boyer Attending Unavailabl e Bonezzi, Jeferson Primary Care Unavailable Karla Boyer Referring Unavailabl e Boyer, Karla M Attending Unavailabl e Bonezzi, Jeferson Attending Unavailable Bonezzi, Jeferson Primary Care Unavailable Bonezzi, Jeferson Referring Unavailable Bonezzi, Jeferson Attending Unavailable Bonezzi, Jeferson Primary Care Unavailable Bonezzi, Jeferson Referring Unavailable Bonezzi, Jeferson Attending Unavailable Bonezzi, Jeferson Primary Care Unavailable Bonezzi, Jeferson Referring Unavailable Bonezzi, Jeferson Primary Care Unavailable Mitchell, Jodee Referring Unavailable Mitchell, Jodee Attending Unavailable Bonezzi, Jeferson Primary Care Unavailable Karla Boyer Attending Unavailabl e Karla Boyer Referring Unavailabl e Bonezzi, Jeferson Primary Care Unavailable Dayanara, Ángel Referring Unavailable Dayanara, Ángel Attending Unavailable Bonezzi, Jeferson Attending Unavailable Bonezzi, Jeferson Primary Care Unavailable Bonezzi, Jeferson Referring Unavailable Bonezzi, Jeferson Attending Unavailable Bonezzi, Jeferson Primary Care Unavailable Karla Boyer Referring Unavailabl e Karla Boyer Attending Unavailabl e Bonezzi, Jeferson Primary Care Unavailable Allergies Allergy Classification Reported Allergen(s) Allergy Type Date of Onset Reaction(s) Facility (15 sources) Ibuprofen Drug Allergy 1 [facility] (2 sources) Adhesive Tape Allergy to substance (disorder) 9 [facility] (2 sources) Ibuprofen Drug Allergy 6 [facility] (2 sources) STINGING INSECTS Allergy to substance (disorder) 6 [facility] (1 source) Ibuprofen Drug Allergy 5 [facility] Repository Medications Current Medications Medication Drug Class(es) Dates Sig (Normalized) Sig (Original) [id number] 200 actuat albuterol 0.09 mg/actuat metered dose [...] TABS One tablet by mouth daily ASPIRIN [id number] Trish Tiana Angel Start: 04-24-2011 take 1 tablet by luis th once daily ASPIRIN 81 MG TABS One tablet by mouth daily ASPIRIN [id number] Trish Tiana Angel ASPIRIN LOW DOSE (ASPIRIN) 81 MG [...] One tablet by mouth twice daily ATENOLOL [id number] Jacques Blair MD atorvastatin 10 mg oral [...] Start: 02-28-2012 take 0.5 tablet by m out at bedtime LIPITOR 20 MG TABS 1/2 tablet by mouth at bedtime. ATORVASTATIN CALCIUM [id number] Jacques Blair MD Start: 04-24-2011 take 1 tablet by luis th at bedtime LIPITOR 20 MG TABS One tablet by mouth at bedtime. ATORVASTATIN CALCIUM [id number] Trish Angel End: 02-19-2024 take 10 mg [...] One tablet by mouth daily COENZYME Q10 [id number] Jacques Blair MD Start: 09-29-2012 take 1 tablet by luis th once daily CO Q-10 100 MG CAPS One tablet by mouth daily COENZYME Q10 [id number] Jacques Blair MD Start: 09-29-2012 take 1 tablet by luis th once daily CO Q-10 100 MG CAPS One tablet by mouth daily COENZYME Q10 [id number] Jacques Blair MD coenzyme Q10 (H2Q COQ10) [...] by mouth daily OMEGA-3 FATTY ACIDS CAPS [id number] Trish [facility] Start: 04-24-2011 take 1 tablet by luis th once daily FISH OIL CAPS One tablet by mouth daily OMEGA-3 FATTY ACIDS CAPS [id number] Trish Tiana ThurmanAngel iv contrast (will be provided with radiology [...] tablet Disc ontinued 0 .ROUTE .COMPLEX 90 September 15, 2024 12:11pm March 02, 2025 8:23am TAKE 1 TABLET DAILY Start: 01-15-2022 End: 07-11-2023 Lisinopril 5 mg tablet Disco ntinued 0 .ROUTE .COMPLEX 90 January 07, 2023 8:52am July 11, 2023 4:05pm TAKE 1 TABLET DAILY Start: 04-24-2011 End: 09-16-2015 take 1 tablet by mouth once daily LISINOPRIL 5 MG TABS One tablet by mouth daily LISINOPRIL [id number] Jacques Blair MD take 2 tablets by mo uth once daily lisinopril 20 mg tablet Take 2 tablet by mouth once a day active Lissa Gaxiola AT [facility] take 2 tablets by mo uth once [...] Start: 11-29-2017 take 1 tablet by luis once daily Multivitamin Active 1 TABLET PO [...] active Lissa Gaxiola AT [facility] [place]-3 Fatty Acids (Fish Oil Concentrate) 1,000 mg capsule (15 sources) Start: 11-29-2017 take 1 capsule by mouth once daily [place]-3 Fatty Acids (Fish Oil Concentrate) 1,000 mg capsule Active 1000 MG PO daily November 29, 2017 12:49pm Start: 11-29-2017 take 1 capsule by mo uth once daily [place]-3 Fatty Acids (Fish Oil Concentrate) 1,000 mg capsule Active 1000 mg PO daily November 29, 2017 1:00am [facility] Start: 11-29-2017 take 1 capsule by mo uth once daily [place]-3 Fatty Acids (Fish Oil Concentrate) 1,000 mg capsule Active 1000 mg PO daily November 29, 2017 1:00am Start: 11-29-2017 take 1 capsule by mo uth once daily [place]-3 Fatty Acids (Fish Oil Concentrate) 1,000 mg capsule Active 1000 MG PO daily November 29, 2017 12:00am Start: 11-29-2017 take 1 capsule by mo uth once daily [place]-3 Fatty Acids (Fish Oil Concentrate) 1,000 mg capsule Active 1000 MG PO daily November 29, 2017 1:00am [place]-3 Fatty Acids-Vitamin E (FISH OIL) 1,000 mg cap (20 sources) take 1 capsule by mo uth once daily [place]-3 Fatty Acids-Vitamin E (FISH OIL) 1,000 mg cap Take 1 capsule by mouth once daily. Active take 1 capsule by mouth once lulu ly [place]-3 Fatty Acids-Vitamin E (FISH OIL) 1,000 mg [...] 1 PO daily on days 2-5 AZITHROMYCIN [id number] Rick Gaffney DO ciprofloxacin 250 mg oral tablet (7 sources) Quinolone Antimicrobial Start: 04-27-2016 End: 05-04-2016 take 1 tablet by mouth twice daily CIPROFLOXACIN HCL 250 MG TABS One tablet by mouth twice daily CIPROFLOXACIN HCL [id number] Rick Gaffney DO meloxicam 15 mg oral tablet (20 sources) Nonsteroidal Anti-inflammatory Drug Start: 09-16-2019 End: 03-17-2020 Meloxicam (Mobic) 15 mg tablet Discontinued 15 mg PO NEEDED as needed for Pain/Inflammation September 16, 2019 1:00am March 17, 2020 8:29am Start: 01-13-2016 End: 05-17-2017 MELOXICAM 15 MG TABS As need ed MELOXICAM [id number] Jacques Blair MD Start: 09-16-2015 End: 01-13-2016 take 1 tablet by mouth once daily as needed MELOXICAM 7.5 MG TABS 1 tablet by mouth daily as needed MELOXICAM [id number] Jacques Blair MD MULTIPLE VITAMIN (3 sources) Start: 04-24-2011 take 1 tablet by mouth once daily MULTIVITAMINS TABS One tablet by mouth daily MULTIPLE VITAMIN [id number] Trish Angel MULTIPLE VITAMIN (4 sources) Start: 04-24-2011 take 1 tablet by mouth once daily MULTIVITAMINS TABS One tablet by mouth daily MULTIPLE VITAMIN [id number] Trish Angel Start: 04-24-2011 take 1 tablet by luis th once daily MULTIVITAMINS TABS One tablet by mouth daily MULTIPLE VITAMIN [id number] Trish Angel nitroglycerin 0.4 mg sublingual tablet (14 sources) Nitrate Vasodilator Start: 04-24-2011 End: 05-17-2016 NITROSTAT 0.4 MG SUBL 1 tablet under tongue every 5 min up to 3 X NITROGLYCERIN [id number] Jacques Blair MD oseltamivir 75 mg oral [...] disease (20 sources) Atherosclerotic heart disease of [place] coronary artery without angina pectoris; Translations: [Angina pectoris] Onset: 1 Resolved: 5 05-14-2017 Chronic Comment on above: 01/11/2010 KNOTT to EDYTA LIZ insitu to the RCA and SVG to DX, SVG to Ramus [facility] per Dr. Hernandez Coronary atherosclerosis and other heart disease (14 sources) Presence of aortocoronary bypass graft; Translations: [Aortocoronary bypass status] Onset: 0 04-24-2011 Episodic Disorders of lipid metabolism (20 sources) Hyperlipidemia; Translations: [Hyperlipidemia, unspecified] Onset: 1 04-24-2011 Chronic Essential hypertension (20 sources) Hypertensive disorder; Translations: [Essential hypertension] Onset: 1 04-24-2011 Chronic Fluid and electrolyte disorders (20 sources) Hyponatremia with decreased serum osmolality; Translations: [Hypo-osmolality and hyponatremia] Onset: 4 11-02-2019 Episodic Immunizations and screening for infectious disease (15 sources) Contact with and (suspected) exposure to other viral communicable diseases; Translations: [Contact with or suspected exposure to other viral communicable disease] 07-10-2021 Episodic Malaise and fatigue (13 sources) Asthenia; Translations: [Weakness] Onset: 5 01-01-2024 Episodic Osteoarthritis (20 sources) Degenerative joint [...] metabolic, and immunity disorders] 01-01-2024 Episodic Other screening for suspected conditions (not mental disorders or infectious disease) (20 sources) Patient encounter status; Translations: [Encounter for screening for malignant neoplasm of colon] Onset: 5 03-10-2015 Episodic Other upper respiratory disease (4 sources) [...] (4 sources) Long-term drug therapy; Translations: [Other chcf (current) drug therapy] Onset: 1 04-24-2011 Unclassified (4 sources) 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; Translations: [Presence of aortocoronary bypass graft] Onset: 1 05-14-2017 Past or Other Problems Problem Classification Problem Date Documented Date Episodic/Chronic Allergic reactions (7 sources) Dermatitis; Translations: [Dermatitis, unspecified] Onset: 04-19-2016 Resolved: 04-24-2016 04-19-2016 Episodic Influenza (20 sources) Influenza; Translations: [Influenza due to unidentified influenza virus with other respiratory manifestations] Onset: 12-29-2023 01-01-2024 Episodic Nonspecific chest pain (14 sources) Precordial pain; Translations: [Precordial pain] Onset: 04-24-2011 Resolved: 09-16-2015 09-16-2015 Episodic Other aftercare (3 sources) Other chcf (current) drug therapy; Translations: [Other chcf (current) drug therapy] Onset: 04-24-2011 04-24-2011 Episodic [...] metabolic disease] Onset: 01-08-2024 03-17-2020 Episodic Other upper respiratory disease (20 sources) [...] above: 01/11/[address] Domo roper @ [facility]>CABG Unclassified (14 sources) Family history of [...] Test Name Value Interpretation Reference Range Facility Basic Metabolic Profile (BMP )on 08-31-2025 BUN/CRE 23.4 RATIO High 08-16 [facility] Comment on above: Performed By: #### L 300.4310, L100.0100, L300.3900, L500.2500 #### [facility] [address] [place], [address] Calcium [Mass/Vol] 9.4 mg/dL Normal 7.6-11.[address] [facility] Comment on above: Performed By: #### L 300.4310, L100.0100, L300.3900, L500.2500 #### [facility] [address] [place], [address] Chloride [Moles/Vol] 98 mmol/L Normal 98-108 [facility] Comment on above: Performed By: #### L 300.4310, L100.0100, L300.3900, L500.2500 #### [facility] [address] [place], [address] CO2 [Moles/Vol] 24.4 mmol/L Normal 21.0-32.0 [facility] Comment on above: Performed By: #### L 300.4310, L100.0100, L300.3900, L500.2500 #### [facility] [address] [place], [address] Creatinine [Mass/Vol] 0.76 mg/dL Normal 0.70-1.20 [facility] Comment on above: Performed By: #### L 300.4310, L100.0100, L300.3900, L500.2500 #### [facility] [address] [place], [address] GAP 10 Normal 5-15 [facility] Comment on above: Performed By: #### L 300.4310, L100.0100, L300.3900, L500.2500 #### [facility] [address] [place], [address] GFR/1.73 sq M.predicted among non-blacks MDRD (S/P/Bld) [Vol rate/Area] 99 mL/min/{1.73_m2} Normal >60 [facility] Comment on above: Result Comment: mL/m in/1.73m2 CKD-EPI Creatinine Equation (2020) Performed By: #### L 300.4310, L100.0100, L300.3900, L500.2500 #### [facility] [address] [place], [address] Glucose [Mass/Vol] 97 mg/dL Normal 70-[address] [facility] Comment on above: Performed By: #### L 300.4310, L100.0100, L300.3900, L500.2500 #### [facility] [address] [place], [address] Potassium [Moles/Vol] 4.4 mmol/L Normal 3.3-5.1 [facility] Comment on above: Performed By: #### L 300.4310, L100.0100, L300.3900, L500.2500 #### [facility] [address] [place], [address] Sodium [Moles/Vol] 132 mmol/L Low 133-[address] [facility] Comment on above: Performed By: #### L 300.4310, L100.0100, L300.3900, L500.2500 #### [facility] [address] [place], [address] Urea nitrogen [Mass/Vol] 18 mg/dL Normal 4-19 [facility] Comment on above: Performed By: #### L 300.4310, L100.0100, L300.3900, L500.2500 #### [facility] [address] [place], [address] CBC W/Diff, Automatedon 11-0 -2024 Absolute Lymph 1.11 X10 3/uL Normal 0.83-4.51 [facility] Comment on above: Performed By: #### L 300.4310, L100.0100, L300.3900, L500.2500 #### [facility] [address] [place], [address] Absolute Neut 6.1 X10 3/uL Normal 2.0-7.7 [facility] Comment on above: Performed By: #### L 300.4310, L100.0100, L300.3900, L500.2500 #### [facility] [address] [place], [address] Basophils/100 WBC (Bld) 0.6 % Normal 0-1 [facility] Comment on above: Performed By: #### L 300.4310, L100.0100, L300.3900, L500.2500 #### [facility] [address] [place], [address] Eosinophils/100 WBC (Bld) 2.2 % Normal 0-5 [facility] Comment on above: Performed By: #### L 300.4310, L100.0100, L300.3900, L500.2500 #### [facility] [address] [place], [address] Erythrocyte distribution width (RBC) [Ratio] 12.6 % Normal 11.6-14.6 [facility] Comment on above: Performed By: #### L 300.4310, L100.0100, L300.3900, L500.2500 #### [facility] [address] [place], [address] Hematocrit (Bld) [Volume fraction] 40.4 % Normal 40-54 [facility] Comment on above: Performed By: #### L 300.4310, L100.0100, L300.3900, L500.2500 #### [facility] [address] [place], [address] Hemoglobin (Bld) [Mass/Vol] 13.8 g/dL Normal 13.0-16.5 [facility] Comment on above: Performed By: #### L 300.4310, L100.0100, L300.3900, L500.2500 #### [facility] [address] [place], [address] IG% 0.400 Normal 0.0-0.9 [facility] Comment on above: Result Comment: IG% - Immature Granulocytes (promyelocytes, myelocytes and metamyelocytes) > 1% indicates that a LEFT SHIFT is Present. Performed By: #### L 300.4310, L100.0100, L300.3900, L500.2500 #### [facility] [address] [place], [address] Lymphocytes/100 WBC (Bld) 13.5 % Low 19-41 [facility] Comment on above: Performed By: #### L 300.4310, L100.0100, L300.3900, L500.2500 #### [facility] [address] [place], [address] MCH (RBC) [Entitic mass] 32.4 pg High 27.0-32.0 [facility] Comment on above: Performed By: #### L 300.4310, L100.0100, L300.3900, L500.2500 #### [facility] [address] [place], [address] MCHC (RBC) [Mass/Vol] 34.2 g/dL Normal 32-36 [facility] Comment on above: Performed By: #### L 300.4310, L100.0100, L300.3900, L500.2500 #### [facility] [address] [place], [address] MCV (RBC) [Entitic vol] 94.8 fL High 80-94 [facility] Comment on above: Performed By: #### L 300.4310, L100.0100, L300.3900, L500.2500 #### [facility] [address] [place], [address] Monocytes/100 WBC (Bld) 8.5 % Normal 0-10 [facility] Comment on above: Performed By: #### L 300.4310, L100.0100, L300.3900, L500.2500 #### [facility] [address] [place], [address] Neutrophils/100 WBC (Bld) 74.8 % High 47-70 [facility] Comment on above: Performed By: #### L 300.4310, L100.0100, L300.3900, L500.2500 #### [facility] [address] [place], [address] Nucleated RBC (Bld) [#/Vol] 0 10*3/uL Normal 0-5 [facility] Comment on above: Performed By: #### L 300.4310, L100.0100, L300.3900, L500.2500 #### [facility] [address] [place], [address] Platelet mean volume (Bld) [Entitic vol] 10.5 fL Normal 6.2-12.0 [facility] Comment on above: Performed By: #### L 300.4310, L100.0100, L300.3900, L500.2500 #### [facility] [address] [place], [address] Platelets (Bld) [#/Vol] 228 10*3/uL Normal 150-450 [facility] Comment on above: Performed By: #### L 300.4310, L100.0100, L300.3900, L500.2500 #### [facility] [address] [place], [address] RBC (Bld) [#/Vol] 4.26 10*6/uL Low 4.6-6.2 [facility] Comment on above: Performed By: #### L 300.4310, L100.0100, L300.3900, L500.2500 #### [facility] [address] [place], [address] RDW SD 43.8 fl Normal 35.1-43.9 [facility] Comment on above: Performed By: #### L 300.4310, L100.0100, L300.3900, L500.2500 #### [facility] [address] [place], [address] WBC (Bld) [#/Vol] 8.2 10*3/uL Normal 4.4-11.[address] [facility] Comment on above: Performed By: #### L 300.4310, L100.0100, L300.3900, L500.2500 #### [facility] [address] [place], [address] Cardiology Visit Reporton Cardiology Visit Report [facility] [address] [place], [place] [address] OFFICE VISIT Date of Service: 08/31/25 MR#: [id number] Acct: [id number] Name: JORGE A RIVERA Rep #: [id number] : 1960 Provider: BIANCA Bailey Age/Sex: 65/M Location: [facility] [place] Status: Signed HPI HPI History of Present Illness Details: JORGE A RIVERA, is a 65 year old white male who presents to the office today for an outpatient cardiovascular follow-up visit. He does have a history of underlying CAD status post CABG in December 2009, hypertension and hyperlipidemia. He was diagnosed with asbestos and PAD since he was here last. 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 He had a stress test in February 2025 this was negative for ischemia and a high workload Patient has been more fatigued than what he had been at his last office visit. EKG does demonstrate inferior lead ischemia. This is new. He is also having more muscle aches and fatigue. He does not have any chest pain. He does get short of breath with exertion. 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 Living Professor Required: No Accompanied by: Self Is patient in pain?: No Allergies ibuprofen (From Advil) Adverse Reaction (Intermediate, Verified 08/31/25 08:30) SOB Medications ???Medication ???Instructions ???Recorded ???Confirmed ???Type aspirin 81 mg tablet,delayed 81 mg PO QDAY heart 11/29/1708/31 History release (Adult Aspirin Regimen) coenzyme Q10 100 mg capsule (Co 100 mg PO QDAY vitamin 11/29/17 History Q-10) multivitamin 1 tab PO QDAY vitamin 11/29/1702/19 History omega-3 fatty acids 1,000 mg 1,000 mg PO QDAY heart health 12/1508/31/25 History capsule (Fish Oil Concentrate) sodium bicarbonate 325 mg tablet 650 mg PO TID PRN 04/24/24 5 History albuterol sulfate 90 mcg/actuation 2 puff inhalation Q6H PRN 08/31/25 History aerosol inhaler atenolol 25 mg tablet 25 mg PO QDAY #90 tabs 12/30/24 Rx atorvastatin 10 mg tablet 10 mg PO QHS 03/02/25 08/31/25 His tory amlodipine 5 mg tablet 5 mg PO QDAY #90 tabs 08/31/2502/19 Rx lisinopril 10 mg tablet 20 mg PO BID 08/31/25 08/31/25 His tory Ejection fraction %: 55 Have you fallen in the past year?: No Nurse's Note: EKG obtained today. Last one on file was 07/19/21. Pt has been working hard lately, so he has been a lot more tired than usual. [facility] Medical History (Updated 08/31/25 @ 09:02 by Karla VALENZUELA, PA) Abnormal EKG Hypertension Hx of asbestos exposure History of SIADH Carotid bruit Essential hypertension COPD (chronic obstructive pulmonary disease) Hyperlipidemia Atherosclerotic heart disease of [place] coronary artery without angina pectoris Surgical History [...] Number of servings: 2 ROS Const Const: Positive for fatigue; Negative for weakness or headache(s) Eyes Eyes: Negative for change in vision ENT ENT: Positive for dizziness (Only when he bends down and stand back up); Negative for headache(s), Nosebleed/epistaxis or balance problems Cardio Chest Pain: No Palpitations: No Edema: None Resp Respiratory: Positive for SOB with activity GI GI: Negative nausea, vomiting, heartburn or bright, red blood in stools : Negative for hematuria Musc Musc: Negative for balance problems Neuro Neuro: Positive for dizziness (Only when he bends down and stand back up); Negative for lightheadedness, syncope, headache(s) or weakness Endo Endo: Positive for fatigue Cardiology Exam Const Appearance: cooperative, healthy appearing, comfortable, no acute distress, (more content not included)... Normal [facility] Partial Thromboplast Timeon 08-31-2025 aPTT Coag (Bld) [Time] 28.7 s Normal 24.1-36.2 [facility] Comment on above: Performed By: #### L 300.4310, L100.0100, L300.3900, L500.2500 #### [facility] [place] [place], [address] Prothrombin Time w/INRon INR Coag (PPP) [Relative time] 1.0 {INR} Normal [facility] Comment on above: Performed By: #### L 300.4310, L100.0100, L300.3900, L500.2500 #### [facility] [address] [place], [address] PT Coag (PPP) [Time] 13.5 s Normal 11.7-14.9 [facility] Comment on above: Performed By: #### L 300.4310, L100.0100, L300.3900, L500.2500 #### [facility] [address] [place], [address] Lipid Profileon 08-25-2025 CHOL:HDL 2.39 Normal [facility] Comment on above: Order Comment: TUBE IS STORED, DRAWN THIS MORNING AROUND 7AM Performed By: #### L 500.4100, L500.4050 #### [facility] [address] [place], [address] Cholesterol [Mass/Vol] 159 mg/dL Normal <=200 [facility] Comment on above: Order Comment: TUBE IS STORED, DRAWN THIS MORNING AROUND 7AM Result Comment: Chol esterol level, Desirable <200 mg/dL Borderline high cholesterol 200-239 mg/dL High cholesterol >=240 mg/dL Recommendations of the NCEP Adult Treatment Panel for the following risk-cutoff thresholds for the [place] population. Performed By: #### L 500.4100, L500.4050 #### [facility] [address] [place], [address] Cholesterol in HDL [Mass/Vol] 67 mg/dL Normal [facility] Comment on above: Order Comment: TUBE IS STORED, DRAWN THIS MORNING AROUND 7AM Result Comment: Sonal onal Cholesterol Education Program (NCEP) guidelines: <40 mg/dL: Low HDL-cholesterol (major risk factor for CHD) >= 60 mg/dL: High HDL-cholesterol (negative risk factor for CHD) HDL-cholesterol is affected by a number of factors, e.g. smoking, exercise, hormones, sex and age. Performed By: #### L 500.4100, L500.4050 #### [facility] [address] [place], [address] Cholesterol in LDL [Mass/Vol] 78 mg/dL Normal [facility] Comment on above: Order Comment: TUBE IS STORED, DRAWN THIS MORNING AROUND 7AM Result Comment: Bord mmhigx=199-077 mg/dL Higher Tdds=589 mg/dL or greater Roberts Equation 2020 for LDL-C Performed By: #### L 500.4100, L500.4050 #### [facility] [address] [place], [address] Cholesterol in VLDL [Mass/Vol] 15 mg/dL Normal 5-40 [facility] Comment on above: Order Comment: TUBE IS STORED, DRAWN THIS MORNING AROUND 7AM Performed By: #### L 500.4100, L500.4050 #### [facility] [address] [place], [address] Triglyceride [Mass/Vol] 75 mg/dL Normal [facility] Comment on above: Order Comment: TUBE IS STORED, DRAWN THIS MORNING AROUND 7AM Result Comment: The drugs N-Acetylcysteine and Metamizole may falsely depress this assay. Normal range: <150 mg/dL Borderline High: 150-199 mg/dL High: 200-499 mg/dL Very High: >500 mg/dL Performed By: #### L 500.4100, L500.4050 #### [facility] [address] [place], [address] Liver Profileon 08-25-2025 Albumin [Mass/Vol] 4.2 g/dL Normal 3.4-4.[address] [facility] Comment on above: Order Comment: TUBE IS STORED, DRAWN THIS MORNING AROUND 7AM Performed By: #### L 500.4100, L500.3400 #### [facility] [address] [place], [address] ALK PHOS 78 U/L Normal 40-129 [facility] Comment on above: Order Comment: TUBE IS STORED, DRAWN THIS MORNING AROUND 7AM Performed By: #### L 500.4100, L500.3400 #### [facility] [address] [place], [address] ALT [Catalytic activity/Vol] 20 U/L Normal <=46 [facility] Comment on above: Order Comment: TUBE IS STORED, DRAWN THIS MORNING AROUND 7AM Performed By: #### L 500.4100, L500.3400 #### [facility] [address] [place], [address] AST [Catalytic activity/Vol] 27 U/L Normal <=37 [facility] Comment on above: Order Comment: TUBE IS STORED, DRAWN THIS MORNING AROUND 7AM Performed By: #### L 500.4100, L500.3400 #### [facility] [address] [place], [address] Bilirubin [Mass/Vol] 0.92 mg/dL Normal 0.00-1.30 [facility] Comment on above: Order Comment: TUBE IS STORED, DRAWN THIS MORNING AROUND 7AM Performed By: #### L 500.4100, L500.3400 #### [facility] [address] [place], [address] Bilirubin.direct [Mass/Vol] 0.40 mg/dL High 0.00-0.30 [facility] Comment on above: Order Comment: TUBE IS STORED, DRAWN THIS MORNING AROUND 7AM Performed By: #### L 500.4100, L500.3400 #### [facility] [address] [place], [address] Globulin (S) [Mass/Vol] 3.0 g/dL Normal 2.2-4.2 [facility] Comment on above: Order Comment: TUBE IS STORED, DRAWN THIS MORNING AROUND 7AM Performed By: #### L 500.4100, L500.3400 #### [facility] [address] [place], [address] T PROT 7.2 g/dL Normal 5.9-8.4 [facility] Comment on above: Order Comment: TUBE IS STORED, DRAWN THIS MORNING AROUND 7AM Performed By: #### L 500.4100, L500.3400 #### [facility] [address] [place], [address] Relevant diagnostic tests/la boratory data Narrativeon 08-10-2025 Fall risk assessment no [email or web address] Work Phone: MEDS REVIEW Documentation of current medications (procedure) [employer] Work Phone: MEDS REVIEWD Medications reviewed without changes [employer] Work Phone: XRAY HX of the Right Hand on 06/02/2025 at [employer] Work Phone: Relevant diagnostic tests/la boratory data Narrativeon 06-02-2025 Fall risk assessment no [email or web address] Work Phone: MEDS REVIEW Done [employer] Work Phone: MEDS REVIEWD Medications reviewed with changes [employer] Work Phone: CNOVon 05-21-2025 CNOV Office Visit (ABBY ) JORGE A RIVERA ([id number]) 1960 M Date Time Provider Department 05/21/25 9:00 AM RUBIO GRIMES During your visit today, we recorded the following information about you: Temperature Pulse Blood pressure Weight 97.6 degrees 75/minute 130/73 67.1 kg Height 1.73 m Rubio Grimes MD 05/21/2025 10:00 AM Signed [facility] NEPHROLOGY AND HYPERTENSION [facility] SERVICE DATE: 05/21/2025 [...] 11/18/2024: Last seen by me. Was taking vnxm-fpb-ojkuesh sodium chloride pills. Offered to increase the dose of Atenolol to 50 mg daily; he wants to discuss with the Pharmacist Apprentice. 05/20/2025 Jorge A reports a history of hyponatremia for at least 5 years, with sodium levels typically in the 130s. 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 He restricts his fluid intake to 48-60 oz daily. He notes that his sodium levels tend to drop when he is ill, leading to symptoms such as fatigue, anorexia, and weight loss. He recalls a recent episode of a cough, pharyngitis, and a cold a few weeks ago, which preceded a drop in sodium levels to 131 mEq/L. 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 He underwent a CT scan of the lungs about 2 months ago, with results pending review by his paint department supervisor. PAST MEDICAL HISTORY: ACTIVE PROBLEM LIST Screening [...] Take 81 mg by mouth once daily. [place]-3 Fatty Acids-Vitamin E (FISH OIL) 1,000 mg [...] ?C (97.6 ?F) Ht 173 cm (5' 8.11) Wt 67.1 kg (147 lb 14.9 oz) [...] 131/79 04/13/2015 (more content not included)... Normal [facility] Renal function 2000 panelon 05-13-2025 Albumin [Mass/Vol] 4.3 g/dL Normal 3.9-4.9 [facility] Comment on above: Order Comment: Speci men Type: BLOOD SPECIMEN Ordering Facility: [facility] Address: [address] [place] [address] Performed By: #### 2 4362-6 #### [facility] CLIA [id number] [address] [place] [address] [place] Anion gap [Moles/Vol] 14 mmol/L Normal 8-15 [facility] Comment on above: Order Comment: Speci men Type: BLOOD SPECIMEN Ordering Facility: [facility] Address: [address] [place] [address] Performed By: #### 2 4362-6 #### [facility] CLIA [id number] [address] [place] [address] [place] Calcium [Mass/Vol] 9.4 mg/dL Normal 8.5-10.2 [facility] Comment on above: Order Comment: Speci men Type: BLOOD SPECIMEN Ordering Facility: [facility] Address: [address] [place] [address] Performed By: #### 2 4362-6 #### [facility] CLIA [id number] [address] [place] [address] [place] Chloride [Moles/Vol] 94 mmol/L Low 98-107 [facility] Comment on above: Order Comment: Speci men Type: BLOOD SPECIMEN Ordering Facility: [facility] Address: [address] [place] [address] Performed By: #### 2 4362-6 #### [facility] CLIA [id number] [address] [place] [address] [place] CO2 [Moles/Vol] 22 mmol/L Normal 22-30 [facility] Comment on above: Order Comment: Gm men Type: BLOOD SPECIMEN Ordering Facility: [facility] Address: [address] [place] [address] Performed By: #### 2 4362-6 #### [facility] CLIA [id number] [address] [place] [address] [place] Creatinine [Mass/Vol] 0.71 mg/dL Low 0.73-1.22 [facility] Comment on above: Order Comment: Speci men Type: BLOOD SPECIMEN Ordering Facility: [facility] Address: [address] [place] [address] Performed By: #### 2 4362-6 #### [facility] [id number] [address] [place] [address] [place] eGFRcr SerPlBld CKD-EPI 2020 101 mL/min/1.73m??? Normal >=60 [facility] Comment on above: Order Comment: Simonei men Type: BLOOD SPECIMEN Ordering Facility: [facility] Address: [address] [place] [address] Result Comment: Kitty mated Glomerular Filtration Rate [...] GFR. Performed By: #### 2 4362-6 #### [facility] CLIA [id number] [address] [place] [address] [place] Glucose [Mass/Vol] 88 mg/dL Normal 74-99 [facility] Comment on above: Order Comment: Simonei men Type: BLOOD SPECIMEN Ordering Facility: [facility] Address: [address] [place] [address] Result Comment: The [place] Diabetes Association (ADA) provides guidance for cutoff [...] Standards of Medical Care in Diabetes 2016, [place] Diabetes Association. Diabetes Care. 2016.39(Suppl 1). Performed By: #### 2 4362-6 #### [facility] CLIA [id number] [address] [place] [address] [place] Phosphate [Mass/Vol] 2.6 mg/dL Low 2.7-4.8 [facility] Comment on above: Order Comment: Gm arroyo Type: BLOOD SPECIMEN Ordering Facility: [facility] Address: [address] [place] [address] Performed By: #### 2 4362-6 #### [facility] [id number] [address] [place] [address] [place] Potassium [Moles/Vol] 4.0 mmol/L Normal 3.7-5.1 [facility] Comment on above: Order Comment: Gm arroyo Type: BLOOD SPECIMEN Ordering Facility: [facility] Address: [address] [place] [address] Performed By: #### 2 4362-6 #### [facility] CLIA [id number] [address] [place] [address] [place] Sodium [Moles/Vol] 130 mmol/L Low 136-144 [facility] Comment on above: Order Comment: Simonei cruz Type: BLOOD SPECIMEN Ordering Facility: [facility] Address: [address] [id number] Performed By: #### 2 4362-6 #### [facility] CLIA [id number] [address] [place] [address] [place] Urea nitrogen [Mass/Vol] 11 mg/dL Normal 9-24 [facility] Comment on above: Order Comment: Gm arroyo Type: BLOOD SPECIMEN Ordering Facility: [facility] Address: [address] [place] [address] Performed By: #### 2 4362-6 #### [facility] CLIA [id number] [address] [place] [address] [place] Sodium Levelon 05-09-2025 Sodium [Moles/Vol] 126 mmol/L Low 133-[address] [facility] Comment on above: Performed By: #### L 500.4100, L500.4050 #### [facility] [address] [place], [address] Sodium levelOrdered By: Jeferson Thomas on 05-09-2025 Sodium [Moles/Vol] 126 mmol/L Low 133-[address] [facility] CNPNon 03-30-2025 [facility] Telephone ([facility]) JORGE A RIVERA ([id number]) 1960 M Date Time Provider Department 03/30/25 RAMON SAMUEL [facility] During your visit today, we recorded the following information about you: Maida Phillips MA 03/30/2025 10:10 AM Signed Fax received from [facility] for [facility] Dr. Thomas CT Chest [...] 81 mg by mouth once daily. - [place]-3 Fatty Acids-Vitamin E (FISH OIL) 1,000 mg [...] Status:Closed by MAIDA PHILLIPS on 03/30/25 Normal [facility] Low Dose CT Lung Screeningon 03-25-[address] Lung Screening [facility] Imaging Services [address] [place] [address] Lung Screening MR#: [id number] Acct: [id number] Name: JORGE A RIVERA Rep #: [id number] : 1960 M 64 From: Rick Centeno MD PCP: Dr. Jeferson Thomas MD Status: REG CLI Study: Low Dose CT Lung Screening Date of Exam: 03/25 Exam# [id number] Ordering Dr: Jeferson Thomas MD EXAM: CT [...] 12 months is recommended. Reading Location: [facility] CC: Dr. Jeferson Thomas MD Software Developer Intern: Signed Normal [facility] Cardiovascular stress test r eportOrdered By: Ángel Nichole on 03-17-2025 Study report [facility] Cardiovascular Services [address] [place] [address] MR#: [id number] Acct: [id number] Name: JORGE A RIVERA Rep #: [id number] : 1960 64 From: Ángel Nichole MD Primary Care: Dr. Jeferson Thomas MD Status : REG I Referring Dr: Karla Boyer PA Sex : M C Stress Test Report [...] Thomas MD; BIANCA Gibbs ~ Date Dictated: 03/17/25 103 Date Transcribed: 03/17/251029 Software Developer Intern: [place] Signed [facility] Work Phone: Stress Reporton 03-17-2025 Stress Report [facility] Cardiovascular Services [facility] [place] [address] MR#: [id number] Acct: [id number] Name: JORGE A RIVERA Rep #: [id number] : 1960 64 From: Ángel Nichole MD [...] Gibbs Date Dictated: 03/17/25 1030 Date Transcribed: 03/17/25 103 Software Developer Intern: [place] Signed Normal [facility] Cardiology Visit Reporton Cardiology Visit Report [facility] [address] [place] [address] OFFICE VISIT Date of Service: 03/02/25 MR#: [id number] Acct: [id number] Name: JORGE A RIVERA Rep #: [id number] : 1960 Provider: BIANCA Bailey Age/Sex: 64/M Location: [facility] [place] [place] Status: Signed HPI HPI History of [...] here last. 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 Normal [facility] Chest PA and Lateralon 02-23 Chest PA and Lateral [facility] Imaging Services [address] [place] [address] [id number] Chest PA and Lateral MR#: [id number] Acct: [id number] Name: JORGE A RIVERA Rep #: [id number] : 1960 M 64 From: Rick Bautista MD PCP: Dr. Jeferson Thomas MD Status: DEP AMB Study: Chest PA and Lateral Date of Exam: 02/23/25 Exam# [id number] Ordering Dr: Jeferson Thomas MD PROCEDURE: CHEST [...] within the past 15 years. Reading Location: [id number] CC: Dr. Jeferson Thomas MD Software Developer Intern: Signed Normal [facility] Anion gap in Serum or Plasma Ordered By: Jeferson Thomas on 02-19-2025 Anion gap [Moles/Vol] 10 mmol/L - [facility] BUN/creatinine ratioOrdered By: Jeferson Thomas on 02-19-2025 Urea nitrogen/Creatinine [Mass ratio] 18.6 mg/mg - [facility] Basic Metabolic Profile (BMP )on 02-19-2025 BUN/CRE 18.6 RATIO Normal - [facility] Comment on above: Performed By: #### L 500.2500 #### [facility] [address] [place], [address] Calcium [Mass/Vol] 9.1 mg/dL Normal 7.6-11.[address] [facility] Comment on above: Performed By: #### L 500.2500 #### [facility] [address] [place] [place], [address] Chloride [Moles/Vol] 93 mmol/L Low 98-108 [facility] Comment on above: Performed By: #### L 500.2500 #### [facility] [address] [facility] [place], [address] CO2 [Moles/Vol] 24.8 mmol/L Normal 21.0-32.0 [facility] Comment on above: Performed By: #### L 500.2500 #### [facility] [address] [place], [address] Creatinine [Mass/Vol] 0.78 mg/dL Normal 0.70-1.20 [facility] Comment on above: Performed By: #### L 500.2500 #### [facility] [address] [place], [address] GAP 10 Normal 5-15 [facility] Comment on above: Performed By: #### L 500.2500 #### [facility] [address] [place], [address] GFR/1.73 sq M.predicted among non-blacks MDRD (S/P/Bld) [Vol rate/Area] 99 mL/min/{1.73_m2} Normal >60 [facility] Comment on above: Result Comment: mL/m in/1.73m2 CKD-EPI Creatinine Equation (2020) Performed By: #### L 500.2500 #### [facility] [address] [place], [address] Glucose [Mass/Vol] 139 mg/dL High 70-[address] [facility] Comment on above: Performed By: #### L 500.2500 #### [facility] [address] [place], [address] Potassium [Moles/Vol] 4.2 mmol/L Normal 3.3-5.1 [facility] Comment on above: Performed By: #### L 500.2500 #### [facility] [address] [place], [address] Sodium [Moles/Vol] 128 mmol/L Low 133-[address] [facility] Comment on above: Performed By: #### L 500.2500 #### [facility] [address] [place], [address] Urea nitrogen [Mass/Vol] 15 mg/dL Normal 4-19 [facility] Comment on above: Performed By: #### L 500.2500 #### [facility] [place], [address] Carbon dioxide, total [Moles /volume] in Central venous bloodOrdered By: Jeferson Thomas on 02-19-2025 CO2 [Moles/Vol] 24.8 mmol/L 21.0-32.0 [facility] Chloride assayOrdered By: Alonso Thomas on 02-19-2025 Chloride [Moles/Vol] 93 mmol/L Low 98-108 [facility] Glomerular filtration rate ( GFR) estimation/1.73 sq m using serum, plasma, or whole bOrdered By: Jeferson Thomas on 02-19-2025 GFR/1.73 sq M.predicted among non-blacks MDRD (S/P/Bld) [Vol rate/Area] 99 mL/min/{1.73_m2} >60 [facility] Comment on above: mL/min/1.73m2 CKD-EP I Creatinine Equation (2020) Potassium measurement (mass/ volume)Ordered By: Jeferson Thomas on 02-19-2025 Potassium (Unsp spec) [Mass/Vol] 4.2 mmol/L 3.3-5.1 [facility] Serum creatinine measurement (mass/volume)Ordered By: Jeferson Thomas on 02-19-2025 Creatinine [Mass/Vol] 0.78 mg/dL 0.70-1.20 [facility] Serum glucose measurement (m ass/volume)Ordered By: Jeferson Thomas on 02-19-2025 Glucose [Mass/Vol] 139 mg/dL High 70-[address] [facility] Serum or plasma calcium adelso urement (mass/volume)Ordered By: Jeferson Thomas on 02-19-2025 Calcium [Mass/Vol] 9.1 mg/dL 7.6-11.[address] [facility] Serum or plasma urea nitroge n measurement (mass/volume)Ordered By: Jeferson Thomas on 02-19-2025 Urea nitrogen [Mass/Vol] 15 mg/dL 4-19 [facility] Sodium levelOrdered By: Jeferson Thomas on 02-19-2025 Sodium [Moles/Vol] 128 mmol/L Low 133-[address] [facility] Renal function 2000 panelon 02-10-2025 Albumin [Mass/Vol] 4.4 g/dL Normal 3.9-4.9 [facility] Comment on above: Order Comment: Speci men Type: BLOOD SPECIMENOrdering Facility: [facility] Address: [address] [place] [address] Performed By: #### 2 4362-6 ####[facility] [id number] [place] [address] [place] Anion gap [Moles/Vol] 8 mmol/L Normal 8-15 [facility] Comment on above: Order Comment: Speci men Type: BLOOD SPECIMENOrdering Facility: [facility] Address: [address] [place] [address] Performed By: #### 2 4362-6 ####[facility] [id number] [place] [address] [place] Calcium [Mass/Vol] 9.6 mg/dL Normal 8.5-10.2 [facility] Comment on above: Order Comment: Speci men Type: BLOOD SPECIMENOrdering Facility: [facility] Address: [address] [place] [address] Performed By: #### 2 4362-6 ####[facility] [id number] [place] [address] [place] Chloride [Moles/Vol] 96 mmol/L Low 98-107 [facility] Comment on above: Order Comment: Speci men Type: BLOOD SPECIMENOrdering Facility: [facility] Address: [address] [place] [address] Performed By: #### 2 4362-6 ####[facility] [id number] [place] [address] [place] CO2 [Moles/Vol] 27 mmol/L Normal 22-30 [facility] Comment on above: Order Comment: Speci men Type: BLOOD SPECIMENOrdering Facility: [facility] Address: [address] [place] [address] Performed By: #### 2 4362-6 ####[facility] [id number] [place] [address] [place] Creatinine [Mass/Vol] 0.71 mg/dL Low 0.73-1.22 [facility] Comment on above: Order Comment: Speci men Type: BLOOD SPECIMENOrdering Facility: [facility] Address: [address] [place] [address] Performed By: #### 2 4362-6 ####[facility] [id number] [place] [address] [place] Creatinine and Glomerular filtration rate.predicted panel (S/P/Bld) 102 mL/min/1.73m??? Normal >=60 [facility] Comment on above: Order Comment: Speci men Type: BLOOD SPECIMENOrdering Facility: [facility] Address: [address] [place] [address] Result Comment: Kitty mated Glomerular Filtration Rate [...] actual GFR. Performed By: #### 2 4362-6 ####[facility]OWNLIA [id number] [place] [address] [place] Glucose [Mass/Vol] 77 mg/dL Normal 74-99 [facility] Comment on above: Order Comment: Speci men Type: BLOOD SPECIMENOrdering Facility: [facility] Address: [address] [place] [address] Result Comment: The [place] Diabetes Association (ADA) provides guidance for cutoff [...] Standards of Medical Care in Diabetes 2016, [place] [employer] Association. Diabetes Care. 2016.39(Suppl 1). Performed By: #### 2 4362-6 ####[facility]IA [id number] [place] [address] [place] Phosphate [Mass/Vol] 4.0 mg/dL Normal 2.7-4.8 [facility] Comment on above: Order Comment: Speci men Type: BLOOD SPECIMENOrdering Facility: [facility] Address: [address] [place] [address] Performed By: #### 2 4362-6 ####[facility] [id number] [place] [address] [place] Potassium [Moles/Vol] 4.5 mmol/L Normal 3.7-5.1 [facility] Comment on above: Order Comment: Speci men Type: BLOOD SPECIMENOrdering Facility: [facility] Address: [address] [place] [address] Performed By: #### 2 4362-6 ####[facility] [id number] [place] [address] [place] Sodium [Moles/Vol] 131 mmol/L Low 136-144 [facility] Comment on above: Order Comment: Speci men Type: BLOOD SPECIMENOrdering Facility: [facility] Address: [address] [place] [address] Performed By: #### 2 4362-6 ####[facility]OWNLIA [id number] [place] [address] [place] Urea nitrogen [Mass/Vol] 16 mg/dL Normal 9-24 [facility] Comment on above: Order Comment: Speci men Type: BLOOD SPECIMENOrdering Facility: [facility] Address: [address] [place] [address] Performed By: #### 2 4362-6 ####[facility] [id number] [place] [address] [place] Anion gap in Serum or Plasma Ordered By: Jeferson Thomas on 12-31-2024 Anion gap [Moles/Vol] 10 mmol/L - [facility] BUN/creatinine ratioOrdered By: Jeferson Thomas on 12-31-2024 Urea nitrogen/Creatinine [Mass ratio] 18.8 mg/mg 10- [facility] Bilirubin, totalOrdered By: Jeferson Thomas on 12-31-2024 Bilirubin [Mass/Vol] 0.68 mg/dL 0.00-1.30 [facility] Calculated very low density lipoprotein (VLDL) cholesterol measurementOrdered By: Jeferson Thomas on 12-31-2024 Calculated very low density lipoprotein (VLDL) cholesterol measurement 11 mg/dL [facility] VLDL Cholesterol 11 mg/dL [facility] Carbon dioxide, total [Moles /volume] in Central venous bloodOrdered By: Jeferson Thomas on 12-31-2024 CO2 [Moles/Vol] 26.0 mmol/L 21.0-32.0 [facility] Chloride assayOrdered By: Alonso Thomas on 12-31-2024 Chloride [Moles/Vol] 96 mmol/L Low 98-108 [facility] Comprehensive Metabolic Prof ilon 12-31-2024 Albumin [Mass/Vol] 4.0 g/dL Normal 3.4-4.[address] [facility] Comment on above: Performed By: #### L 500.4100, L500.4050 #### [facility] [address] [place], [address] Albumin/Globulin [Mass ratio] 1.4 {ratio} Normal 0.9-2.4 [facility] Comment on above: Performed By: #### L 500.4100, L500.4050 #### [facility] [address] [place], [address] ALK PHOS 78 U/L Normal 40-129 [facility] Comment on above: Performed By: #### L 500.4100, L500.4050 #### [facility] [address] [place], [address] ALT [Catalytic activity/Vol] 18 U/L Normal <=46 [facility] Comment on above: Performed By: #### L 500.4100, L500.4050 #### [facility] [address] [place], [address] AST [Catalytic activity/Vol] 23 U/L Normal <=37 [facility] Comment on above: Performed By: #### L 500.4100, L500.4050 #### [facility] [address] [place], [address] Bilirubin [Mass/Vol] 0.68 mg/dL Normal 0.00-1.30 [facility] Comment on above: Performed By: #### L 500.4100, L500.4050 #### [facility] [address] [place], [address] BUN/CRE 18.8 RATIO Normal 10-20 [facility] Comment on above: Performed By: #### L 500.4100, L500.4050 #### [facility] [address] [place], [address] Calcium [Mass/Vol] 9.2 mg/dL Normal 7.6-11.[address] [facility] Comment on above: Performed By: #### L 500.4100, L500.4050 #### [facility] [address] [place], [address] Chloride [Moles/Vol] 96 mmol/L Low 98-108 [facility] Comment on above: Performed By: #### L 500.4100, L500.4050 #### [facility] [address] [place], [address] CO2 [Moles/Vol] 26.0 mmol/L Normal 21.0-32.0 [facility] Comment on above: Performed By: #### L 500.4100, L500.4050 #### [facility] [address] [place], [address] Creatinine [Mass/Vol] 0.83 mg/dL Normal 0.70-1.20 [facility] Comment on above: Performed By: #### L 500.4100, L500.4050 #### [facility] [address] [place], [address] GAP 10 Normal 5-15 [facility] Comment on above: Performed By: #### L 500.4100, L500.4050 #### [facility] [address] [place], [address] GFR/1.73 sq M.predicted among non-blacks MDRD (S/P/Bld) [Vol rate/Area] 97 mL/min/{1.73_m2} Normal >60 [facility] Comment on above: Result Comment: mL/m in/1.73m2 CKD-EPI Creatinine Equation (2020) Performed By: #### L 500.4100, L500.4050 #### [facility] [address] [place], [address] Globulin (S) [Mass/Vol] 2.9 g/dL Normal 2.2-4.2 [facility] Comment on above: Performed By: #### L 500.4100, L500.4050 #### [facility] [address] [place], [address] Glucose [Mass/Vol] 84 mg/dL Normal 70-[address] [facility] Comment on above: Performed By: #### L 500.4100, L500.4050 #### [facility] [address] [place], [address] Potassium [Moles/Vol] 4.5 mmol/L Normal 3.3-5.1 [facility] Comment on above: Performed By: #### L 500.4100, L500.4050 #### [facility] [address] [place], [address] Sodium [Moles/Vol] 132 mmol/L Low 133-[address] [facility] Comment on above: Performed By: #### L 500.4100, L500.4050 #### [facility] [address] [place], [address] T PROT 6.9 g/dL Normal 5.9-8.4 [facility] Comment on above: Performed By: #### L 500.4100, L500.4050 #### [facility] [address] [place], [address] Urea nitrogen [Mass/Vol] 16 mg/dL Normal 4-19 [facility] Comment on above: Performed By: #### L 500.4100, L500.4050 #### [facility] [address] [place], [address] GFR/1.73 sq M.predicted geo g non-blacks MDRD (S/P/Bld) [Vol rate/Area]Ordered By: Jeferson Thomas on 12-31-2024 Estimated GFR (MDRD) Non-Af Amer 97 >60 [facility] Comment on above: mL/min/1.73m2 CKD-EP I Creatinine Equation (2020) Glomerular filtration rate ( GFR) estimation/1.73 sq m using serum, plasma, or whole bOrdered By: Jeferson Thomas on 12-31-2024 GFR/1.73 sq M.predicted among non-blacks MDRD (S/P/Bld) [Vol rate/Area] 97 mL/min/{1.73_m2} >60 [facility] Comment on above: mL/min/1.73m2 CKD-EP I Creatinine Equation (2020) LDL calc ser/plasOrdered By: Jeferson Thomas on 12-31-2024 Cholesterol in LDL [Mass/Vol] 85 mg/dL [facility] Comment on above: Evjkuxryft=315-456 m g/dL & Higher Nlgk=339 mg/dL or greater LDL Cholesterol, Calculated 85 mg/dL [facility] Comment on above: Rnjommsqaq=906-421 m g/dL & Higher Ykfs=670 mg/dL or greater Laboratory - Chemistry and C hemistry - challengeOrdered By: Jeferson Thomas on 12-31-2024 AST [Catalytic activity/Vol] 23 U/L <38 [facility] Lipid Profileon 12-31-2024 CHOL:HDL 2.54 Normal [facility] Comment on above: Performed By: #### L 500.4100, L500.4050 #### [facility] [address] [place], [address] Cholesterol [Mass/Vol] 159 mg/dL Normal <=200 [facility] Comment on above: Result Comment: Chol esterol level, Desirable <200 mg/dL Borderline high cholesterol 200-239 mg/dL High cholesterol >=240 mg/dL Recommendations of the NCEP Adult Treatment Panel for the following risk-cutoff thresholds for the [place] population. Performed By: #### L 500.4100, L500.4050 #### [facility] [address] [place], [address] Cholesterol in HDL [Mass/Vol] 63 mg/dL Normal [facility] Comment on above: Result Comment: [place]onal onal Cholesterol Education Program (NCEP) guidelines: <40 mg/dL: Low HDL-cholesterol (major risk factor for CHD) >= 60 mg/dL: High HDL-cholesterol (negative risk factor for CHD) HDL-cholesterol is affected by a number of factors, e.g. smoking, exercise, hormones, sex and age. Performed By: #### L 500.4100, L500.4050 #### [facility] [address] [place], [address] Cholesterol in LDL [Mass/Vol] 85 mg/dL Normal [facility] Comment on above: Result Comment: Bord pcjeto=491-076 mg/dL Higher Mpdv=050 mg/dL or greater Performed By: #### L 500.4100, L500.4050 #### [facility] [address] [place], [address] Cholesterol in VLDL [Mass/Vol] 11 mg/dL Normal 5-40 [facility] Comment on above: Performed By: #### L 500.4100, L500.4050 #### [facility] [address] [place], [address] Triglyceride [Mass/Vol] 55 mg/dL Normal [facility] Comment on above: Result Comment: The drugs N-Acetylcysteine and Metamizole may falsely depress this assay. Normal range: <150 mg/dL Borderline High: 150-199 mg/dL High: 200-499 mg/dL Very High: >500 mg/dL Performed By: #### L 500.4100, L500.4050 #### [facility] [address] [place], [address] Potassium (Unsp spec) [Mass/ Vol]Ordered By: Jeferson Thomas on 12-31-2024 Potassium [Moles/Vol] 4.5 mmol/L 3.3-5.1 [facility] Potassium measurement (mass/ volume)Ordered By: Jeferson Thomas on 12-31-2024 Potassium (Unsp spec) [Mass/Vol] 4.5 mmol/L 3.3-5.1 [facility] Screening total cholesterol/ high density lipoprotein (HDL) cholesterol ratioOrdered By: Jeferson Thomas on 12-31-2024 Cholesterol.total/Chol esterol in HDL [Mass ratio] 2.54 {ratio} [facility] Serum creatinine measurement (mass/volume)Ordered By: Jeferson Thomas on 12-31-2024 Creatinine [Mass/Vol] 0.83 mg/dL 0.70-1.20 [facility] Serum globulin measurementOr dered By: Jeferson Thomas on 12-31-2024 Globulin (S) [Mass/Vol] 2.9 g/dL 2.2-4.2 [facility] Serum glucose measurement (m ass/volume)Ordered By: Jeferson Thomas on 12-31-2024 Glucose [Mass/Vol] 84 mg/dL 70-[address] [facility] Serum or plasma alanine real otransferase (ALT) measurementOrdered By: Jeferson Thomas on 12-31-2024 ALT [Catalytic activity/Vol] 18 U/L <47 [facility] Serum or plasma albumin adelso urement (mass/volume)Ordered By: Jeferson Thomas on 12-31-2024 Albumin [Mass/Vol] 4.0 g/dL 3.4-4.[address] [facility] Serum or plasma albumin/glob ulin mass ratioOrdered By: Jeferson Thomas on 12-31-2024 Albumin/Globulin [Mass ratio] 1.4 {ratio} 0.9-2.4 [facility] Serum or plasma alkaline jo sphatase measurementOrdered By: Jeferson Thomas on 12-31-2024 ALP [Catalytic activity/Vol] 78 U/L 40-129 [facility] Serum or plasma calcium adelso urement (mass/volume)Ordered By: Jeferson Thomas on 12-31-2024 Calcium [Mass/Vol] 9.2 mg/dL 7.6-11.[address] [facility] Serum or plasma cholesterol in HDL measurement (mass/volume)Ordered By: Jeferson Thomas on 12-31-2024 Cholesterol in HDL [Mass/Vol] 63 mg/dL >40 [facility] Comment on above: National Cholesterol Education Program (NCEP) guidelines:<40 mg/dL: Low HDL-cholesterol (major risk factor for CHD)>= 60 mg/dL: High HDL-cholesterol (negative risk factor for CHD)HDL-cholesterol is affected by a number of factors, e.g. smoking, exercise, hormones, sex and age. Serum or plasma cholesterol measurement (mass/volume)Ordered By: Jeferson Thomas on 12-31-2024 Cholesterol [Mass/Vol] 159 mg/dL <201 [facility] Comment on above: Cholesterol level, D esirable <200 mg/dLBorderline high cholesterol 200-239 mg/dLHigh cholesterol >=240 mg/dLRecommendations of the NCEP Adult Treatment Panel for the following risk-cutoff thresholds for the [place] population. Serum or plasma urea nitroge n measurement (mass/volume)Ordered By: Jeferson Thomas on 12-31-2024 Urea nitrogen [Mass/Vol] 16 mg/dL 4-19 [facility] Sodium levelOrdered By: Jeferson Thomas on 12-31-2024 Sodium [Moles/Vol] 132 mmol/L Low 133-[address] [facility] Total proteinOrdered By: Filipe Thomas on 12-31-2024 Protein [Mass/Vol] 6.9 g/dL 5.9-8.[address] [facility] Triglycerides measurementOrd ered By: Jeferson Thomas on 12-31-2024 Triglyceride [Mass/Vol] 55 mg/dL <199 [facility] Comment on above: The drugs N-Acetylcy steine and Metamizole may falsely depress this assay. Normal range: <150 mg/dLBorderline High: 150-199 mg/dLHigh: 200-499 mg/dLVery High: >500 mg/dL Basic Metabolic Profile (BMP )on 12-14-2024 BUN/CRE 22.2 RATIO High 10-20 [facility] Comment on above: Performed By: #### L 500.4100, L500.4050 #### [facility] [address] [place], [address] CA,Total 8.8 mg/dL Normal 8.5-10.1 [facility] Comment on above: Performed By: #### L 500.4100, L500.4050 #### [facility] [address] [place], [address] Chloride [Moles/Vol] 95 mmol/L Low 98-107 [facility] Comment on above: Performed By: #### L 500.4100, L500.4050 #### [facility] [address] [place], [address] CO2 [Moles/Vol] 28.0 mmol/L Normal 21.0-32.0 [facility] Comment on above: Performed By: #### L 500.4100, L500.4050 #### [facility] [address] [place], [address] Creatinine [Mass/Vol] 0.81 mg/dL Normal 0.70-1.30 [facility] Comment on above: Result Comment: The validity of the calculated GFR GFRAA in patients over 70 years has not been determined. Clinical correlation is essential. Performed By: #### L 500.4100, L500.4050 #### [facility] [address] [place], [address] EST GFR - AA 123 mL/min Normal >60 [facility] Comment on above: Result Comment: Afri can [place] GFR Calc Performed By: #### L 500.4100, L500.4050 #### [facility] [address] [place], [address] GAP 7 Normal 5-15 [facility] Comment on above: Performed By: #### L 500.4100, L500.4050 #### [facility] [address] [place], [address] GFR/1.73 sq M.predicted among non-blacks MDRD (S/P/Bld) [Vol rate/Area] 101 mL/min/{1.73_m2} Normal >60 [facility] Comment on above: Result Comment: Non- GFR Calc Performed By: #### L 500.4100, L500.4050 #### [facility] [address] [place], [address] Glucose [Mass/Vol] 114 mg/dL High 74-[address] [facility] Comment on above: Result Comment: Fast ing Glucose result from 100 to 125 mg/dL suggests IMPAIRED HOMEOSTASIS per A.D.A. criteria. Performed By: #### L 500.4100, L500.4050 #### [facility] [address] [place], [address] Potassium [Moles/Vol] 3.7 mmol/L Normal 3.5-5.1 [facility] Comment on above: Performed By: #### L 500.4100, L500.4050 #### [facility] [address] [place], [address] Sodium [Moles/Vol] 129 mmol/L Low 136-[address] [facility] Comment on above: Performed By: #### L 500.4100, L500.4050 #### [facility] [address] [place], [address] Urea nitrogen [Mass/Vol] 18 mg/dL Normal 7-18 [facility] Comment on above: Performed By: #### L 500.4100, L500.4050 #### [facility] [address] [place], [address] Blood urea nitrogen (BUN)/cr eatinine ratioOrdered By: Jeferson Thomas on 12-14-2024 Urea nitrogen/Creatinine [Mass ratio] 22.2 mg/mg High 10-20 [facility] Carbon dioxide measurementOr dered By: Jeferson Thomas on 12-14-2024 CO2 [Moles/Vol] 28.0 mmol/L 21.0-32.0 [facility] Chloride measurementOrdered By: Jeferson Thomas on 12-14-2024 Chloride [Moles/Vol] 95 mmol/L Low 98-107 [facility] Estimated glomerular filtrat ion rate (GFR) AmericanOrdered By: Jeferson Thomas on 12-14-2024 Estimated GFR (MDRD) Amer 123 mL/min >60 [facility] Comment on above: GFR Calc Glomerular filtration rate ( GFR) estimationOrdered By: Jeferson Thomas on 12-14-2024 Estimated GFR (MDRD) Non-Af Amer 101 mL/min >60 [facility] Comment on above: Non- GFR Calc GFR/1.73 sq M.predicted among non-blacks MDRD (S/P/Bld) [Vol rate/Area] 101 mL/min/{1.73_m2} >60 [facility] Comment on above: Non- GFR Calc Glucose measurementOrdered B y: Jeferson Thomas on 12-14-2024 Glucose [Mass/Vol] 114 mg/dL High 74-[address] [facility] Comment on above: Fasting Glucose resu lt from 100 to 125 mg/dL suggests IMPAIRED HOMEOSTASIS per A.D.A. criteria. Potassium measurementOrdered By: Jeferson Thomas on 12-14-2024 Potassium [Moles/Vol] 3.7 mmol/L 3.5-5.1 [facility] Serum anion gap measurementO rdered By: Jeferson Thomas on 12-14-2024 Anion gap [Moles/Vol] 7 mmol/L 5-15 [facility] Serum or plasma calcium adelso urement (mass/volume)Ordered By: Jeferson Thomas on 12-14-2024 Calcium [Mass/Vol] 8.8 mg/dL 8.5-10.[address] [facility] Serum or plasma creatinine m easurement (mass/volume)Ordered By: Jeferson Thomas on 12-14-2024 Creatinine [Mass/Vol] 0.81 mg/dL 0.70-1.30 [facility] Comment on above: The validity of the calculated GFR & GFRAA in patients over 70 years has not been determined. Clinical correlation is essential. Serum or plasma urea nitroge n measurement (mass/volume)Ordered By: Jeferson Thomas on 12-14-2024 Urea nitrogen [Mass/Vol] 18 mg/dL 7-18 [facility] Sodium levelOrdered By: Jeferson Thomas on 12-14-2024 Sodium [Moles/Vol] 129 mmol/L Low 136-[address] [facility] Albumin to globulin ratioOrd ered By: Jeferson Thomas on 12-11-2024 Albumin/Globulin [Mass ratio] 1.1 {ratio} 0.9-2.4 [facility] Basic Metabolic Profile (BMP )on 02-14-2025 BUN/CRE 14.4 RATIO Normal 10-20 [facility] Comment on above: Performed By: #### L 500.2500 #### [facility] [address] [place], [address] CA,Total 8.8 mg/dL Normal 8.5-10.1 [facility] Comment on above: Performed By: #### L 500.2500 #### [facility] [address] [place], [address] Chloride [Moles/Vol] 86 mmol/L Low 98-107 [facility] Comment on above: Performed By: #### L 500.2500 #### [facility] [address] [place], [address] CO2 [Moles/Vol] 26.0 mmol/L Normal 21.0-32.0 [facility] Comment on above: Performed By: #### L 500.2500 #### [facility] [address] [place], [address] Creatinine [Mass/Vol] 0.76 mg/dL Normal 0.70-1.30 [facility] Comment on above: Result Comment: The validity of the calculated GFR GFRAA in patients over 70 years has not been determined. Clinical correlation is essential. Performed By: #### L 500.2500 #### [facility] [address] [place], [address] EST GFR - AA 131 mL/min Normal >60 [facility] Comment on above: Result Comment: Afri can [place] GFR Calc Performed By: #### L 500.2500 #### [facility] [address] [place], [address] GAP 8 Normal 5-15 [facility] Comment on above: Performed By: #### L 500.2500 #### [facility] [address] [place], [address] GFR/1.73 sq M.predicted among non-blacks MDRD (S/P/Bld) [Vol rate/Area] 109 mL/min/{1.73_m2} Normal >60 [facility] Comment on above: Result Comment: Non- GFR Calc Performed By: #### L 500.2500 #### [facility] [address] [place], [address] Glucose [Mass/Vol] 131 mg/dL High 74-[address] [facility] Comment on above: Result Comment: Fast ing Glucose result greater than or equal to 126 mg/dL suggests DIABETES MELLITUS per A.D.A. criteria. Performed By: #### L 500.2500 #### [facility] [address] [place], [address] Potassium [Moles/Vol] 3.6 mmol/L Normal 3.5-5.1 [facility] Comment on above: Performed By: #### L 500.2500 #### [facility] [address] [place], [address] Sodium [Moles/Vol] 121 mmol/L Low 136-[address] [facility] Comment on above: Performed By: #### L 500.2500 #### [facility] [address] [place], [address] Urea nitrogen [Mass/Vol] 11 mg/dL Normal 7-18 [facility] Comment on above: Performed By: #### L 500.2500 #### [facility] [address] [place], [address] Bilirubin, totalOrdered By: Jeferson Thomas on 12-11-2024 Bilirubin [Mass/Vol] 0.60 mg/dL 0.20-1.00 [facility] Comment on above: For patients on eltr ombopag therapy, use of Dimension [place] TBIL is not recommended. Blood urea nitrogen (BUN)/cr eatinine ratioOrdered By: Jeferson Thomas on 12-11-2024 Urea nitrogen/Creatinine [Mass ratio] 14.4 mg/mg 10-20 [facility] Carbon dioxide measurementOr dered By: Jeferson Thomas on 12-11-2024 CO2 [Moles/Vol] 26.0 mmol/L 21.0-32.0 [facility] Chloride measurementOrdered By: Jeferson Thomas on 12-11-2024 Chloride [Moles/Vol] 86 mmol/L Low 98-107 [facility] Comprehensive Metabolic Prof ilon 12-11-2024 Albumin [Mass/Vol] 3.9 g/dL Normal 3.2-5.[address] [facility] Comment on above: Order Comment: GREEN TOP REJECTED - WAS BROUGHT IN AFTER 1400. Performed By: #### L 500.4100, L500.4050 #### [facility] [address] [place], [address] Albumin/Globulin [Mass ratio] 1.1 {ratio} Normal 0.9-2.4 [facility] Comment on above: Order Comment: GREEN TOP REJECTED - WAS BROUGHT IN AFTER 1400. Performed By: #### L 500.4100, L500.4050 #### [facility] [address] [place], [address] ALK P 108 U/L Normal 45-117 [facility] Comment on above: Order Comment: GREEN TOP REJECTED - WAS BROUGHT IN AFTER 1400. Performed By: #### L 500.4100, L500.4050 #### [facility] [address] [place], [address] ALT [Catalytic activity/Vol] 33 U/L Normal 16-61 [facility] Comment on above: Order Comment: GREEN TOP REJECTED - WAS BROUGHT IN AFTER 1400. Performed By: #### L 500.4100, L500.4050 #### [facility] [address] [place], [address] AST [Catalytic activity/Vol] 32 U/L Normal 15-37 [facility] Comment on above: Order Comment: GREEN TOP REJECTED - WAS BROUGHT IN AFTER 1400. Performed By: #### L 500.4100, L500.4050 #### [facility] [address] [place], [address] Bilirubin [Mass/Vol] 0.60 mg/dL Normal 0.20-1.00 [facility] Comment on above: Order Comment: GREEN TOP REJECTED - WAS BROUGHT IN AFTER 1400. Result Comment: For patients on eltrombopag therapy, use of Dimension [place] TBIL is not recommended. Performed By: #### L 500.4100, L500.4050 #### [facility] [address] [place], [address] BUN/CRE 15.5 RATIO Normal 10-20 [facility] Comment on above: Order Comment: GREEN TOP REJECTED - WAS BROUGHT IN AFTER 1400. Performed By: #### L 500.4100, L500.4050 #### [facility] [address] [place], [address] CA,Total 8.7 mg/dL Normal 8.5-10.1 [facility] Comment on above: Order Comment: GREEN TOP REJECTED - WAS BROUGHT IN AFTER 1400. Performed By: #### L 500.4100, L500.4050 #### [facility] [address] [place], [address] Chloride [Moles/Vol] 86 mmol/L Low 98-107 [facility] Comment on above: Order Comment: GREEN TOP REJECTED - WAS BROUGHT IN AFTER 1400. Performed By: #### L 500.4100, L500.4050 #### [facility] [address] [place], [address] CO2 [Moles/Vol] 26.0 mmol/L Normal 21.0-32.0 [facility] Comment on above: Order Comment: GREEN TOP REJECTED - WAS BROUGHT IN AFTER 1400. Performed By: #### L 500.4100, L500.4050 #### [facility] [address] [place], [address] Creatinine [Mass/Vol] 0.71 mg/dL Normal 0.70-1.30 [facility] Comment on above: Order Comment: GREEN TOP REJECTED - WAS BROUGHT IN AFTER 1400. Result Comment: The validity of the calculated GFR GFRAA in patients over 70 years has not been determined. Clinical correlation is essential. Performed By: #### L 500.4100, L500.4050 #### [facility] [address] [place], [address] EST GFR - AA 143 mL/min Normal >60 [facility] Comment on above: Order Comment: GREEN TOP REJECTED - WAS BROUGHT IN AFTER 1400. Result Comment: Afri can [place] GFR Calc Performed By: #### L 500.4100, L500.4050 #### [facility] [address] [place], [address] GAP 9 Normal 5-15 [facility] Comment on above: Order Comment: GREEN TOP REJECTED - WAS BROUGHT IN AFTER 1400. Performed By: #### L 500.4100, L500.4050 #### [facility] [address] [place], [address] GFR/1.73 sq M.predicted among non-blacks MDRD (S/P/Bld) [Vol rate/Area] 118 mL/min/{1.73_m2} Normal >60 [facility] Comment on above: Order Comment: GREEN TOP REJECTED - WAS BROUGHT IN AFTER 1400. Result Comment: Non- GFR Calc Performed By: #### L 500.4100, L500.4050 #### [facility] [address] [place], [address] Globulin (S) [Mass/Vol] 3.4 g/dL Normal 2.2-4.2 [facility] Comment on above: Order Comment: GREEN TOP REJECTED - WAS BROUGHT IN AFTER 1400. Performed By: #### L 500.4100, L500.4050 #### [facility] [address] [place], [address] Glucose [Mass/Vol] 94 mg/dL Normal 74-[address] [facility] Comment on above: Order Comment: GREEN TOP REJECTED - WAS BROUGHT IN AFTER 1400. Performed By: #### L 500.4100, L500.4050 #### [facility] [address] [place], [address] Potassium [Moles/Vol] 4.4 mmol/L Normal 3.5-5.1 [facility] Comment on above: Order Comment: GREEN TOP REJECTED - WAS BROUGHT IN AFTER 1400. Performed By: #### L 500.4100, L500.4050 #### [facility] [address] [place], [address] Sodium [Moles/Vol] 120 mmol/L Low 136-[address] [facility] Comment on above: Order Comment: GREEN TOP REJECTED - WAS BROUGHT IN AFTER 1400. Performed By: #### L 500.4100, L500.4050 #### [facility] [address] [place], [address] T PROT 7.3 g/dL Normal 6.4-8.2 [facility] Comment on above: Order Comment: GREEN TOP REJECTED - WAS BROUGHT IN AFTER 1400. Performed By: #### L 500.4100, L500.4050 #### [facility] [address] [place], [address] Urea nitrogen [Mass/Vol] 11 mg/dL Normal 7-18 [facility] Comment on above: Order Comment: GREEN TOP REJECTED - WAS BROUGHT IN AFTER 1400. Performed By: #### L 500.4100, L500.4050 #### [facility] [address] [place], [address] Estimated glomerular filtrat ion rate (GFR) AmericanOrdered By: Jeferson Thomas on 12-11-2024 Estimated GFR (MDRD) Amer 131 mL/min >60 [facility] Comment on above: GFR Calc Glomerular filtration rate ( GFR) estimationOrdered By: Jeferson Thomas on 12-11-2024 Estimated GFR (MDRD) Non-Af Amer 109 mL/min >60 [facility] Comment on above: Non- GFR Calc GFR/1.73 sq M.predicted among non-blacks MDRD (S/P/Bld) [Vol rate/Area] 109 mL/min/{1.73_m2} >60 [facility] Comment on above: Non- GFR Calc Glucose measurementOrdered B y: Jeferson Thomas on 12-11-2024 Glucose [Mass/Vol] 131 mg/dL High 74-[address] [facility] Comment on above: Fasting Glucose resu lt greater than or equal to 126 mg/dL suggests DIABETES MELLITUS per A.D.A. criteria. Laboratory - Chemistry and C hemistry - challengeOrdered By: Jeferson Thomas on 12-11-2024 AST [Catalytic activity/Vol] 32 U/L 15-37 [facility] Potassium measurementOrdered By: Jeferson Thomas on 12-11-2024 Potassium [Moles/Vol] 3.6 mmol/L 3.5-5.1 [facility] Serum anion gap measurementO rdered By: Jeferson Thomas on 12-11-2024 Anion gap [Moles/Vol] 8 mmol/L 5-15 [facility] Serum globulin measurementOr dered By: Jeferson Thomas on 12-11-2024 Globulin (S) [Mass/Vol] 3.4 g/dL 2.2-4.2 [facility] Serum or plasma alanine real otransferase (ALT) measurementOrdered By: Jeferson Thomas on 12-11-2024 ALT [Catalytic activity/Vol] 33 U/L 16-61 [facility] Serum or plasma albumin adelso urement (mass/volume)Ordered By: Jeferson Thomas on 12-11-2024 Albumin [Mass/Vol] 3.9 g/dL 3.2-5.[address] [facility] Serum or plasma alkaline jo sphatase measurementOrdered By: Jeferson Thomas on 12-11-2024 ALP [Catalytic activity/Vol] 108 U/L 45-117 [facility] Serum or plasma calcium adelso urement (mass/volume)Ordered By: Jeferson Thomas on 12-11-2024 Calcium [Mass/Vol] 8.8 mg/dL 8.5-10.[address] [facility] Serum or plasma creatinine m easurement (mass/volume)Ordered By: Jeferson Thomas on 12-11-2024 Creatinine [Mass/Vol] 0.76 mg/dL 0.70-1.30 [facility] Comment on above: The validity of the calculated GFR & GFRAA in patients over 70 years has not been determined. Clinical correlation is essential. Serum or plasma urea nitroge n measurement (mass/volume)Ordered By: Jeferson Thomas on 12-11-2024 Urea nitrogen [Mass/Vol] 11 mg/dL 7-18 [facility] Sodium levelOrdered By: Jeferson Thomas on 12-11-2024 Sodium [Moles/Vol] 121 mmol/L Low 136-[address] [facility] Total proteinOrdered By: Filipe Thomas on 12-11-2024 Protein [Mass/Vol] 7.3 g/dL 6.4-8.[address] [facility] CNOVon 11-18-2024 [place] Office Visit (ABBY ) JORGE A RIVERA ([id number]) 1960 M Date Time Provider Department 11/18/24 9:00 AM RUBIO GRIMES During your visit today, we recorded the following information about you: Pulse Blood pressure Weight 78/minute 146/78 67.1 kg Rubio Grimes MD 11/18/2024 9:26 AM Signed [facility] NEPHROLOGY AND HYPERTENSION [facility] SERVICE DATE: 11/18/2024 [...] Take 81 mg by mouth once daily. [place]-3 Fatty Acids-Vitamin E (FISH OIL) 1,000 mg [...] 1440 h (more content not included)... Normal [facility] Renal function 2000 panelon 11-10-2024 Albumin [Mass/Vol] 4.2 g/dL Normal 3.9-4.9 [facility] Comment on above: Order Comment: Speci men Type: BLOOD SPECIMENOrdering Facility: [facility] Address: [address] [place] [address] Performed By: #### 2 4362-6 ####[facility] BILLIE MILLTOWNCLIA [id number] [place] [address] [place] Anion gap [Moles/Vol] 10 mmol/L Normal 8-15 [facility] Comment on above: Order Comment: Speci men Type: BLOOD SPECIMENOrdering Facility: [facility] Address: [address] [place] [address] Performed By: #### 2 4362-6 ####[facility] BILLIE MILLTOWNCLIA [id number] [place] [address] [place] Calcium [Mass/Vol] 9.5 mg/dL Normal 8.5-10.2 [facility] Comment on above: Order Comment: Speci men Type: BLOOD SPECIMENOrdering Facility: [facility] Address: [address] [place] [address] Performed By: #### 2 4362-6 ####[facility] BILLIE MILLTOWNCLIA [id number] [place] [address] [place] Chloride [Moles/Vol] 96 mmol/L Low 98-107 [facility] Comment on above: Order Comment: Speci men Type: BLOOD SPECIMENOrdering Facility: [facility] Address: [address] [place] [address] Performed By: #### 2 4362-6 ####[facility] [id number] [place] [address] [place] CO2 [Moles/Vol] 28 mmol/L Normal 22-30 [facility] Comment on above: Order Comment: Speci men Type: BLOOD SPECIMENOrdering Facility: [facility] Address: [address] [place] [address] Performed By: #### 2 4362-6 ####[facility] [id number] [place] [address] [place] Creatinine [Mass/Vol] 0.76 mg/dL Normal 0.73-1.22 [facility] Comment on above: Order Comment: Speci men Type: BLOOD SPECIMENOrdering Facility: [facility] Address: [address] [place] [address] Performed By: #### 2 4362-6 ####[facility] [id number] [place] [address] [place] Creatinine and Glomerular filtration rate.predicted panel (S/P/Bld) 100 mL/min/1.73m??? Normal >=60 [facility] Comment on above: Order Comment: Speci men Type: BLOOD SPECIMENOrdering Facility: [facility] Address: [address] [place] [address] Result Comment: Kitty mated Glomerular Filtration Rate [...] actual GFR. Performed By: #### 2 4362-6 ####[facility] YOUNGSTOWNLIA [id number] [place] [address] [place] Glucose [Mass/Vol] 79 mg/dL Normal 74-99 [facility] Comment on above: Order Comment: Speci men Type: BLOOD SPECIMENOrdering Facility: [facility] Address: [address] [place], [place] [address] Result Comment: The [place] Diabetes Association (ADA) provides guidance for cutoff [...] Standards of Medical Care in Diabetes 2016, [place] Diabetes Association. Diabetes Care. 2016.39(Suppl 1). Performed By: #### 2 4362-6 ####[facility] [id number] [place] [address] [place] Phosphate [Mass/Vol] 3.8 mg/dL Normal 2.7-4.8 [facility] Comment on above: Order Comment: Speci men Type: BLOOD SPECIMENOrdering Facility: [facility] Address: [address] [place], [place] [address] Performed By: #### 2 4362-6 ####[facility] [id number] [place] [address] [place] Potassium [Moles/Vol] 4.3 mmol/L Normal 3.7-5.1 [facility] Comment on above: Order Comment: Speci men Type: BLOOD SPECIMENOrdering Facility: [facility] Address: [address] [place] [address] Performed By: #### 2 4362-6 ####[facility] [id number] [place] [address] [place] Sodium [Moles/Vol] 134 mmol/L Low 136-144 [facility] Comment on above: Order Comment: Speci men Type: BLOOD SPECIMENOrdering Facility: [facility] Address: [address] [place] [address] Performed By: #### 2 4362-6 ####[facility] CHANELLWNCLIA [id number] [place] [address] [place] Urea nitrogen [Mass/Vol] 14 mg/dL Normal 9-24 [facility] Comment on above: Order Comment: Speci men Type: BLOOD SPECIMENOrdering Facility: [facility] Address: [address] [place] [id number] Performed By: #### 2 4362-6 ####[facility] CHANELLWNCLIA [id number] [place] [address] [place] Lower Ext Art Exam w/ Exerci bijan 11-06-2024 Lower Ext Art Exam w/ Exercise [facility] [address] [place] [address] Lower Ext Art Exam w/ Exercise 11/06/24 0803 MR#: [id number] Acct: [id number] Name: JORGE A RIVERA Rep #: [id number] : 1960 64 From: Damon Melendrez MD Attending Dr: BIANCA Garcia Status: REG CLI Ordering Dr: Jodee Mitchell Date: 11/06/24 Location: [facility] Sex: M C Admitted: Reason For Study: [...] Dictated: 11/06/24 0803 Date Transcribed: 11/09/24 134 Software Developer Intern: Signed Normal [facility] MR/Irais 10-08-2024 /BROWN.SERENA [facility] [address] [place] [address]. [address] [place] [address] OFFICE VISIT Date of Service: 10/08/24 MR#: [id number] Acct: [id number] Name: JORGE A RIVERA Rep #: [id number] : 1960 Provider: BIANCA Garcia Age/Sex: 64/M Location: [facility] [place] Status: Signed Intake Vital Signs 04/24/24 14:43 [...] disease) Hyperlipidemia Hypertension Atherosclerotic heart disease of [place] coronary artery without angina pectoris Surgical History [...] constipation, N (more content not included)... Normal [facility] 09-02-2024 [facility] Telephone ([facility]) JORGE A RIVERA ([id number]) 1960 M Date Time Provider Department 09/02/24 RAMON SAMUEL [facility] During your visit today, we recorded [...] 81 mg by mouth once daily. - [place]-3 Fatty Acids-Vitamin E (FISH OIL) 1,000 mg [...] Encounter Status:Closed by RAMON SAMUEL on 09/02/24 [facility] 09-01-2024 [facility] Telephone ([facility]) JORGE A RIVERA ([id number]) 1960 M Date Time Provider Department 09/01/24 RAMON SAMUEL [facility] During your visit today, we recorded [...] 81 mg by mouth once daily. - [place]-3 Fatty Acids-Vitamin E (FISH OIL) 1,000 mg [...] Encounter Status:Closed by MAIDA PHILLIPS on 09/01/24 [facility] 08-28-2024 [facility] Telephone ([facility]) JORGE A RIVERA Nuha ([id number]) 1960 M Date Time Provider Department 08/28/24 [facility] During your visit today, we recorded the following information about you: Ivory Hunter 08/28/2024 3:[address] Fong office needing to know if the Patient can have a CT with contrast please advise! If they dont answer you may also fax to them at [phone]. Mercy Worthy RN 08/28/2024 3:48 PM Signed Routing to Hair Adames to advise. Hair Adames, PEYTON.PLATING INSPECTOR 08/28/2024 3:49 PM Signed He may have [...] 81 mg by mouth once daily. - [place]-3 Fatty Acids-Vitamin E (FISH OIL) 1,000 mg [...] Encounter Status:Closed by HAIR ADAMES on 08/28/24 [facility] CN Office Visit (ABBY ) JORGE A RIVERA ([id number]) 1960 T[place] Date Time Provider Department 08/13/24 9:00 AM HAIR ADAMES During your visit today, we recorded the following information about you: Pulse Blood pressure Weight 80/minute 173/87 64.9 kg Hair Adames, ACCOUNTS PAYABLE TECHNICIAN.PLATING INSPECTOR 08/27/2024 1:47 PM Addendum feeDepartment of Kidney Medicine Medical Specialties [facility] CHIEF COMPLAINT: Follow up for hyponatremia [...] Follows low salt diet 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 [place]-3 Fatty Acids-Vitamin E (FISH OIL) 1,000 mg [...] around 1 (more content not included)... Normal [facility] Renal function 2000 panelon 08-12-2024 Albumin [Mass/Vol] 4.5 g/dL Normal 3.9-4.9 [facility] Comment on above: Order Comment: Speci men Type: BLOOD SPECIMENOrdering Facility: [facility] Address: [address] [place] [address] Performed By: #### 2 4362-6 ####[facility] [id number] [place] [address] [place] Anion gap [Moles/Vol] 10 mmol/L Normal 8-15 [facility] Comment on above: Order Comment: Speci men Type: BLOOD SPECIMENOrdering Facility: [facility] Address: [address] [place] [address] Performed By: #### 2 4362-6 ####[facility] [id number] [place] [address] [place] Calcium [Mass/Vol] 9.7 mg/dL Normal 8.5-10.2 [facility] Comment on above: Order Comment: Speci men Type: BLOOD SPECIMENOrdering Facility: [facility] Address: [address] [place], [place] [address] Performed By: #### 2 4362-6 ####[facility] [id number] [place] [address] [place] Chloride [Moles/Vol] 97 mmol/L Low 98-107 [facility] Comment on above: Order Comment: Speci men Type: BLOOD SPECIMENOrdering Facility: [facility] Address: [address] [id number] Performed By: #### 2 4362-6 ####[facility] DEMIIMLAYCAL[facility]IN [id number] [address] STATES OF [facility] CO2 [Moles/Vol] 24 mmol/L Normal 22-30 [facility] Comment on above: Order Comment: Speci men Type: BLOOD SPECIMENOrdering Facility: [facility] Address: [address] [place], [place] [address] Performed By: #### 2 4362-6 ####[facility] [id number] [address] Creatinine [Mass/Vol] 0.77 mg/dL Normal 0.73-1.22 [facility] Comment on above: Order Comment: Speci men Type: BLOOD SPECIMENOrdering Facility: [facility] Address: [address] [place] [address] Performed By: #### 2 4362-6 ####[facility]ID[facility]CLIA [id number] [address] Creatinine and Glomerular filtration rate.predicted panel (S/P/Bld) 99 mL/min/1.73m??? Normal >=60 [facility] Comment on above: Order Comment: Speci men Type: BLOOD SPECIMENOrdering Facility: [facility] Address: [address] [place], [place] [address] Result Comment: Kitty mated Glomerular Filtration Rate [...] actual GFR. Performed By: #### 2 4362-6 ####[facility]OWNCLIA [id number] [place] [address] [place] Glucose [Mass/Vol] 86 mg/dL Normal 74-99 [facility] Comment on above: Order Comment: Speci men Type: BLOOD SPECIMENOrdering Facility: [facility] Address: [address] [place], [place] [address] Result Comment: The [place] Diabetes Association (ADA) provides guidance for cutoff [...] Standards of Medical Care in Diabetes 2016, [place] Diabetes Association. Diabetes Care. 2016.39(Suppl 1). Performed By: #### 2 4362-6 ####[facility] MILLTOWALEJANDROLIA [id number] [place] [address] [place] Phosphate [Mass/Vol] 3.5 mg/dL Normal 2.7-4.8 [facility] Comment on above: Order Comment: Speci men Type: BLOOD SPECIMENOrdering Facility: [facility] Address: [address] [place], [place] [address] Performed By: #### 2 4362-6 ####[facility] MILLRASHAWNWALEJANDROLIA [id number] [place] [address] [place] Potassium [Moles/Vol] 4.1 mmol/L Normal 3.7-5.1 [facility] Comment on above: Order Comment: Speci men Type: BLOOD SPECIMENOrdering Facility: [facility] Address: [address] [place], [place] [address] Performed By: #### 2 4362-6 ####[facility] MILLRASHAWNWNCLIA [id number] [place] [address] [place] Sodium [Moles/Vol] 131 mmol/L Low 136-144 [facility] Comment on above: Order Comment: Speci men Type: BLOOD SPECIMENOrdering Facility: [facility] Address: [facility] [place] [id number] Performed By: #### 2 4362-6 ####[facility] [id number] [address] Urea nitrogen [Mass/Vol] 15 mg/dL Normal 9-24 [facility] Comment on above: Order Comment: Speci men Type: BLOOD SPECIMENOrdering Facility: [facility] Address: [facility] [place] [address] Performed By: #### 2 4362-6 ####[facility] [id number] [address] Alfredito 08-06-2024 CNPN Telephone (MIDALV) JORGE A RIVERA ([id number]) 1960 M Date Time Provider Department 08/06/24 RUBIO GRIMES [facility] During your visit today, we recorded [...] Known Allergies) Date Reviewed: 04/07/2024 Reviewed by: Petush, Tara, RPFT - Fully Assessed Primary Visit Diagnosis:SIADH (syndrome of inappropriate ADH production) ([facility]) [E22.2] Order(s):RENAL FUNCTION PANEL [SQRFP] Order #: [id number] FUTURE Prescriptions as of 08/06/2024 - lisinopril [...] 81 mg by mouth once daily. - [place]-3 Fatty Acids-Vitamin E (FISH OIL) 1,000 mg [...] Status:Closed by RUBIO GRIMES on 08/06/24 Normal [facility] Renal function 2000 panelon 08-06-2024 Albumin [Mass/Vol] 4.4 g/dL Normal 3.9-4.9 [facility] Comment on above: Order Comment: Speci men Type: BLOOD SPECIMENOrdering Facility: [facility] Address: [address] [place] [address] Performed By: #### 2 4362-6 ####[facility] BILLIE MILLTOWNCLIA [id number] [place] [address] [place] Anion gap [Moles/Vol] 10 mmol/L Normal 8-15 [facility] Comment on above: Order Comment: Speci men Type: BLOOD SPECIMENOrdering Facility: [facility] Address: [address] [place] [address] Performed By: #### 2 4362-6 ####[facility] MILLTOWNCLIA [id number] [place] [address] [place] Calcium [Mass/Vol] 9.4 mg/dL Normal 8.5-10.2 [facility] Comment on above: Order Comment: Speci men Type: BLOOD SPECIMENOrdering Facility: [facility] Address: [address] [place] [address] Performed By: #### 2 4362-6 ####[facility] MILLTOWNCLIA [id number] [place] [address] [place] Chloride [Moles/Vol] 91 mmol/L Low 98-107 [facility] Comment on above: Order Comment: Speci men Type: BLOOD SPECIMENOrdering Facility: [facility] Address: [address] [place] [address] Performed By: #### 2 4362-6 ####[facility] MILLTOWNCLIA [id number] [place] [address] [place] CO2 [Moles/Vol] 25 mmol/L Normal 22-30 [facility] Comment on above: Order Comment: Speci men Type: BLOOD SPECIMENOrdering Facility: [facility] Address: [address] [place] [address] Performed By: #### 2 4362-6 ####[facility] MILLTOWNCLIA [id number] [place] [address] [place] Creatinine [Mass/Vol] 0.72 mg/dL Low 0.73-1.22 [facility] Comment on above: Order Comment: Gm arroyo Type: BLOOD SPECIMENOrdering Facility: [facility] Address: [address] [place] [address] Performed By: #### 2 4362-6 ####[facility] [id number] [place] [address] [place] Creatinine and Glomerular filtration rate.predicted panel (S/P/Bld) 101 mL/min/1.73m??? Normal >=60 [facility] Comment on above: Order Comment: Gm arroyo Type: BLOOD SPECIMENOrdering Facility: [facility] Address: [address] [place] [address] Result Comment: Kitty mated Glomerular Filtration Rate [...] actual GFR. Performed By: #### 2 4362-6 ####[facility] [id number] [place] [address] [place] Glucose [Mass/Vol] 110 mg/dL High 74-99 [facility] Comment on above: Order Comment: Gm arroyo Type: BLOOD SPECIMENOrdering Facility: [facility] Address: [address] [place] [address] Result Comment: The [place] Diabetes Association (ADA) provides guidance for cutoff [...] Standards of Medical Care in Diabetes 2016, [place] [employer] Association. Diabetes Care. 2016.39(Suppl 1). Performed By: #### 2 4362-6 ####[facility] [id number] [place] [address] [place] Phosphate [Mass/Vol] 3.1 mg/dL Normal 2.7-4.8 [facility] Comment on above: Order Comment: Speci men Type: BLOOD SPECIMENOrdering Facility: [facility] Address: [address] [place], [place] [address] Performed By: #### 2 4362-6 ####[facility] [id number] [place] [address] [place] Potassium [Moles/Vol] 4.1 mmol/L Normal 3.7-5.1 [facility] Comment on above: Order Comment: Speci men Type: BLOOD SPECIMENOrdering Facility: [facility] Address: [address] [place] [address] Performed By: #### 2 4362-6 ####[facility] [id number] [place] [address] [place] Sodium [Moles/Vol] 126 mmol/L Low 136-144 [facility] Comment on above: Order Comment: Speci men Type: BLOOD SPECIMENOrdering Facility: [facility] Address: [address] [place] [address] Performed By: #### 2 4362-6 ####[facility] [id number] [place] [address] [place] Urea nitrogen [Mass/Vol] 11 mg/dL Normal 9-24 [facility] Comment on above: Order Comment: Speci men Type: BLOOD SPECIMENOrdering Facility: [facility] Address: [address] [place] [address] [place] [address] Performed By: #### 2 4362-6 ####[facility] DEMIIMLAYALEJANDROJohnathon [id number] [place] [address] [place] No Panel Informationon 04-07 [facility]ly [facility] [address] [place] [address] Test Date: 2024-04-07 Pat Name: JORGE A RIVERA Department: Room: 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1960 Requested By: Order Number: [id number] Reading MD: Rosibel Mckeon MD Interpretive Statements [...] 16:48:00 EDT by Rosibel Mckeon MD ID: [id number] Name: JORGE A RIVERA Race: White Ht: 67.56 in Wt: 142.00 lbs Age: 64 Gender: Male : 1960 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 PULMONARY FUNCTION LAB [facility] SIX MINUTE WALKon 04-07-2024 Tara Lino RPF Ha 04/07/2024 1:32 PM RESPIRATORY THERAPY SIX MINUTE [...] DATE: April 07, 2024 TIME: 1:31 PM [facility] SIX MINUTE WALKOrdered By: Trav Mckeon on 04-07-2024 [facility] Work Phone: SPIROMETRY WITH DILATOR IF O BSTRUCTEDon 04-07-2024 DLCO (ml/min/mmHg) 15.94 ml/min/mmHg [facility] DLCO/VA (ml/min/mmHg/L) 2.77 ml/min/mmHg/ L [facility] ERV BOX (L) 1.93 L [facility] ZWO80-26% PRE (L/S) 1.65 L/S [facility] FEV1 PRE (L) 2.75 L [facility] FEV1/FVC PRE (%) 65 % [facility] FRC Box (L) 4.39 L [facility] FVC PRE (L) 4.20 L [facility] IC BOX (L) 2.18 L [facility] PEF PRE (L/S) 6.01 L/S [facility] RV Box (L) 2.33 L [facility] RV/TLC Box (%) 36 % [facility] TLC Box (L) 6.43 L [facility] VA (L) 5.75 L [facility] VC (L) BOX 4.11 L [facility] XR Chest PA and LateralOrder ed By: Ccf Provider on 04-25-2024 Interpretation and review of laboratory results Abnormal [facility] Radiology Result ACTIONABLE Abnormal [facility] Comment on above: This report contains an [...] contact your provider for the next steps. [facility] XR Chest PA and Lateralon IMPRESSION: Pleural thickening along the left lateral hemithorax. CT chest recommended for further evaluation ACTIONABLE RESULT: FOLLOW-UP Acuity: Actionable Findings: Thoracic-Other Routing Code: CT_1 Recommendation: CT Chest WO IVCON Time Frame: At the discretion of the clinical team. COMMUNICATION: Results will be communicated with the ordering provider via [employer] staff message or phone message by [employer] within 2 business days of report finalization. --END OF FINDING-- Software Developer Intern: PSC[employer] Transcribe Date/Time: Feb 20 2024 1:48P Dictated by : CASANDRA RITTER MD This examination was interpreted and the report reviewed and electronically signed by: CASANDRA RITTER MD on Feb 20 2024 1:50PM [facility] DIVISION OF RADIOLOGY * * *Final Report* * * DATE OF EXAM: Feb 19 2024 9:09AM STX 5291 - XR CHEST 2V FRONTAL/LAT / PROCEDURE REASON: multiple diagnoses * * * * Physician Interpretation * * * * EXAMINATION: CHEST RADIOGRAPH (2 VIEW FRONTAL & LATERAL) CLINICAL HISTORY: Hyponatremia SIADH (syndrome of inappropriate ADH production) ([facility]) MQ: [id number]_6 EXAM DATE/TIME: 02/19/2024 9:09 AM COMPARISON: No relevant prior studies available. RESULT: Lines, tubes, and devices: Mediastinal wires are seen. Lungs and pleura: No consolidation. No lung mass. Somewhat lobulated pleural thickening along the left lateral hemithorax .No pneumothorax. Cardiomediastinal silhouette: Normal cardiomediastinal silhouette. Bones and soft tissues: Unremarkable. DIVISION OF RADIOLOGY Provider, [facility] - 02/20/2024 * * *Final Report* * [...] be communicated with the ordering provider via [employer] staff message or phone message by [facility] [employer] within 2 business days of report finalization. --END OF FINDING-- Software Developer Intern: PSCB Transcribe Date/Time: Feb 20 2024 1:48P Dictated by : CASANDRA RITTER MD This examination was interpreted and the report reviewed and electronically signed by: CASANDRA RITTER MD on Feb 20 2024 1:50PM [facility] CBC panel Auto (Bld)on 02-18 Erythrocyte distribution width (RBC) [Ratio] 13.2 % 11.5 - 15.0 % [facility] Hematocrit (Bld) [Volume fraction] 40.9 % 39.0 - 51.0 % [facility] Hemoglobin (Bld) [Mass/Vol] 14.1 g/dL 13.0 - 17.0 g/dL [facility] Interpretation and review of laboratory results Normal [facility] MCH (RBC) [Entitic mass] 32.9 pg 26.0 - 34.0 pg [facility] MCHC (RBC) [Mass/Vol] 34.5 g/dL 30.5 - 36.0 g/dL [facility] MCV (RBC) [Entitic vol] 95.3 fL 80.0 - 100.0 fL [facility] Nucleated RBC (Bld) [#/Vol] NINF [facility] Platelet mean volume (Bld) [Entitic vol] 9.5 fL 9.0 - 12.7 fL [facility] Platelets (Bld) [#/Vol] 238 10*3/uL [facility] RBC (Bld) [#/Vol] 4.29 10*6/uL 4.20 - 6.0 0 m/uL [facility] WBC (Bld) [#/Vol] 8.75 10*3/uL [facility] Hepatic function 2000 panelo n 02-19-2024 Albumin [Mass/Vol] 4.6 g/dL 3.9 - 4.9 g/dL [facility] ALP [Catalytic activity/Vol] 83 U/L 38 - 113 U/L [facility] ALT [Catalytic activity/Vol] 13 U/L 10 - 54 U/L [facility] AST [Catalytic activity/Vol] 19 U/L 14 - 40 U/L [facility] Bilirubin [Mass/Vol] 0.7 mg/dL 0.2 - 1 .3 mg/dL [facility] Bilirubin.conjugated [Mass/Vol] 0.2 mg/dL High NINF - 0.2 mg/dL [facility] Protein [Mass/Vol] 7.4 g/dL 6.3 - 8.0 g/dL [facility] No Panel InformationOrdered By: Renetta Grant on 02-19-2024 Interpretation and review of laboratory results Abnormal [facility] OSMOLALITY URINEOrdered By: Letty Stephenson on 02-19-2024 Osmolality (U) [Osmolality] 483 mosm/kg [facility] Osmolality (U) [Osmolality]O rdered By: Letty Stephenson on 02-19-2024 Interpretation and review of laboratory results Normal [facility] URIC ACIDOrdered By: Renetta Grant on 02-19-2024 Urate [Mass/Vol] 3.4 mg/dL Low 4.0 - 8.1 mg/dL [facility] Urinalysis complete panel (U )Ordered By: Demar Ceballos on 02-19-2024 Bacteria LM.HPF (Urine sed) [#/Area] Negative Negative /HPF [facility] Bilirubin Ql (U) Negative Negative [facility] Clarity (Unsp spec) Clear Clear [facility] Color (U) Yellow Yellow [facility] Epithelial cells LM.HPF (Urine sed) [#/Area] None Seen /HPF [facility] Glucose Test strip (U) [Mass/Vol] Negative Negative [facility] Hemoglobin Ql (U) Negative Negative [facility] Hyaline casts (Urine sed) [#/Area] 0 /[LPF] 0 /LPF [facility] Ketones Ql (U) Negative Negative [facility] Leukocyte esterase Test strip Ql (U) Negative Negative [facility] Nitrite Ql (U) Negative Negative [facility] pH (U) 7.0 [pH] NINF - 8.5 [facility] Protein (U) [Mass/Vol] Negative Negative Cl [facility] RBC LM.HPF (Urine sed) [#/Area] 0-2 /HPF 0-2 /HPF [facility] Specific gravity (U) [Rel density] 1.016 1.005 - 1.030 [facility] Urobilinogen Ql (U) 0.2 EU/dL 0.2-1.0 EU/dL [facility] WBC LM.HPF (Urine sed) [#/Area] 0-5 /HPF 0-5 /HPF [facility] This test was developed and its performance characteristics determined by [facility]'s [facility] Medicine [place] ([facility]). It has not been cleared or approved by the FDA. -[facility] is regulated under CLIA as qualified to perform high-complexity testing. This test is used for clinical purposes. It should not be regarded as investigational or for research. [facility] XR Chest PA and Lateralon Radiology Study observation (narrative) [facility] Basophil percentageOrdered B y: Judy Guan on 01-31-2024 Chloride [Moles/Vol] 97 mmol/L 98-107 [facility] Glucose [Mass/Vol] 92 mg/dL 74-[address] [facility] Potassium [Moles/Vol] 4.1 mmol/L 3.5-5.1 [facility] Sodium [Moles/Vol] 130 mmol/L 136-[address] [facility] Laboratory - Chemistry and C hemistry - challengeOrdered By: Judy Guan on 01-31-2024 CO2 [Moles/Vol] 27.0 mmol/L 21.0-32.0 [facility] Urea nitrogen/Creatinine [Mass ratio] 14.1 mg/mg 10-20 [facility] No Panel InformationOrdered By: Judy Guan on 01-31-2024 Estimated GFR (MDRD) Amer 116 mL/min >60 [facility] Comment on above: GFR Calc Estimated GFR (MDRD) Non-Af Amer 96 mL/min >60 [facility] Comment on above: Non- GFR Calc Serum or plasma calcium adelso urement (mass/volume)Ordered By: Judy Guan on 01-31-2024 Calcium [Mass/Vol] 9.0 mg/dL 8.5-10.[address] [facility] Serum or plasma creatinine m easurement (mass/volume)Ordered By: Judy Guan on 01-31-2024 Creatinine [Mass/Vol] 0.85 mg/dL 0.70-1.30 [facility] Comment on above: The validity of the calculated GFR & GFRAA in patients over 70 years has not been determined. Clinical correlation is essential. Serum or plasma urea nitroge n measurement (mass/volume)Ordered By: Judy Guan on 01-31-2024 Urea nitrogen [Mass/Vol] 12 mg/dL 7-18 [facility] Thin prep Papanicolaou smear with manual screeningOrdered By: Judy Guan on 01-31-2024 Thin prep Papanicolaou smear with manual screening 6 5-15 [facility] Basophil percentageOrdered B y: Judy Guan on 01-10-2024 Chloride [Moles/Vol] 93 mmol/L 98-107 [facility] Glucose [Mass/Vol] 93 mg/dL 74-[address] [facility] Potassium [Moles/Vol] 3.7 mmol/L 3.5-5.1 [facility] Sodium [Moles/Vol] 126 mmol/L 136-[address] [facility] Laboratory - Chemistry and C hemistry - challengeOrdered By: Judy Guan on 01-10-2024 CO2 [Moles/Vol] 28.0 mmol/L 21.0-32.0 [facility] Urea nitrogen/Creatinine [Mass ratio] 11.4 mg/mg 10-20 [facility] No Panel InformationOrdered By: Judy Guan on 01-10-2024 Estimated GFR (MDRD) Amer 112 mL/min >60 [facility] Comment on above: GFR Calc Estimated GFR (MDRD) Non-Af Amer 93 mL/min >60 [facility] Comment on above: Non- GFR Calc Serum or plasma calcium adelso urement (mass/volume)Ordered By: Judy Guan on 01-10-2024 Calcium [Mass/Vol] 8.5 mg/dL 8.5-10.[address] [facility] Serum or plasma creatinine m easurement (mass/volume)Ordered By: Judy Guan on 01-10-2024 Creatinine [Mass/Vol] 0.88 mg/dL 0.70-1.30 [facility] Comment on above: The validity of the calculated GFR & GFRAA in patients over 70 years has not been determined. Clinical correlation is essential. Serum or plasma urea nitroge n measurement (mass/volume)Ordered By: Judy Guan on 01-10-2024 Urea nitrogen [Mass/Vol] 10 mg/dL 7-18 [facility] Thin prep Papanicolaou smear with manual screeningOrdered By: Judy Guan on 01-10-2024 Thin prep Papanicolaou smear with manual screening 5 5-15 [facility] Absolute lymphocyte countOrd ered By: Bull Gusman on 01-03-2024 Lymphocytes Auto (Unsp spec) [#/Vol] 1.18 10*3/uL 0.83-4.51 [facility] Automated lymphocyte count a s percentage of total leukocytesOrdered By: Bull Gusman on 01-03-2024 Lymphocytes/100 WBC Auto (Unsp spec) 22.5 % 19-41 [facility] Basophil percentageOrdered B y: Bull Gusman on 01-03-2024 Basophils/100 WBC (Bld) 0.4 % 0-1 [facility] Eosinophils/100 WBC (Bld) 0.6 % 0-5 [facility] Hemoglobin (Bld) [Mass/Vol] 12.6 g/dL 13.0-16.5 [facility] Monocytes/100 WBC (Bld) 9.9 % 0-10 [facility] Neutrophils (Bld) [#/Vol] 3.5 10*3/uL 2.0-7.7 [facility] Neutrophils/100 WBC (Bld) 66.0 % 47-70 [facility] WBC (Bld) [#/Vol] 5.2 10*3/uL 4.4-11.[address] [facility] Basophil percentageOrdered B y: Judy Guan on 01-03-2024 Chloride [Moles/Vol] 92 mmol/L 98-107 [facility] Glucose [Mass/Vol] 95 mg/dL 74-[address] [facility] Potassium [Moles/Vol] 3.7 mmol/L 3.5-5.1 [facility] Sodium [Moles/Vol] 126 mmol/L 136-[address] [facility] Determination of erythrocyte mean corpuscular volume (MCV)Ordered By: Bull Gusman on 01-03-2024 MCV (RBC) [Entitic vol] 88.2 fL 80-94 [facility] Erythrocyte distribution wid th ratioOrdered By: Bull Gusman on 01-03-2024 Erythrocyte distribution width (RBC) [Ratio] 11.6 % 11.6-14.6 [facility] Erythrocyte distribution wid th standard deviationOrdered By: Bull Gusman on 01-03-2024 Erythrocyte distribution width (RBC) [Entitic vol] 37.7 fL 35.1-43.9 [facility] Hematocrit Auto (Bld) [Volum e fraction]Ordered By: Bull Gusman on 01-03-2024 Hematocrit (Bld) [Volume fraction] 35.2 % 40-54 [facility] Immature granulocytes/100 WB C Auto (Bld)Ordered By: Bull Gusman on 01-03-2024 Immature granulocytes/100 WBC (Bld) 0.600 % 0.0-0.9 [facility] Comment on above: IG% - Immature Granu locytes (promyelocytes, myelocytes and metamyelocytes) > 1% indicates that a LEFT SHIFT is Present. Laboratory - Chemistry and C hemistry - challengeOrdered By: Judy Guan on 01-03-2024 CO2 [Moles/Vol] 24.0 mmol/L 21.0-32.0 [facility] Urea nitrogen/Creatinine [Mass ratio] 12.9 mg/mg 10-20 [facility] Laboratory - Hematology and Cell countsOrdered By: Bull Gusman on 01-03-2024 MCH (RBC) [Entitic mass] 31.6 pg 27.0-32.0 [facility] MCHC (RBC) [Mass/Vol] 35.8 g/dL 32-36 [facility] Nucleated RBC/100 WBC (Bld) [Ratio] 0 % 0-5 [facility] Platelet mean volume (Bld) [Entitic vol] 10.0 fL 6.2-12.0 [facility] Platelets (Bld) [#/Vol] 174 10*3/uL 150-450 [facility] No Panel InformationOrdered By: Judy Guan on 01-03-2024 Estimated Creatinine Clearance Calc 125.10 ml/min [facility] Estimated GFR (MDRD) Amer 195 mL/min >60 [facility] Comment on above: GFR Calc Estimated GFR (MDRD) Non-Af Amer 161 mL/min >60 [facility] Comment on above: Non- GFR Calc RBC Auto (Bld) [#/Vol]Ordere d By: Bull Gusman on 01-03-2024 RBC (Bld) [#/Vol] 3.99 10*6/uL 4.6-6.2 [facility] Serum or plasma calcium adelso urement (mass/volume)Ordered By: Judy Guan on 01-03-2024 Calcium [Mass/Vol] 8.2 mg/dL 8.5-10.[address] [facility] Serum or plasma creatinine m easurement (mass/volume)Ordered By: Judy Guan on 01-03-2024 Creatinine [Mass/Vol] 0.54 mg/dL 0.70-1.30 [facility] Comment on above: The validity of the calculated GFR & GFRAA in patients over 70 years has not been determined. Clinical correlation is essential. Serum or plasma urea nitroge n measurement (mass/volume)Ordered By: Judy Guan on 01-03-2024 Urea nitrogen [Mass/Vol] 7 mg/dL 7-18 [facility] Thin prep Papanicolaou smear with manual screeningOrdered By: Judy Guan on 01-03-2024 Thin prep Papanicolaou smear with manual screening 10 5-15 [facility] Basophil percentageOrdered B y: Josee Guan on 01-02-2024 Basophil percentage 2.5 mg/dL 2.5-4.9 [facility] Bilirubin [Mass/Vol] 1.10 mg/dL 0.20-1.00 [facility] Comment on above: For patients on eltr ombopag therapy, use of Dimension [place] TBIL is not recommended. Protein [Mass/Vol] 6.9 g/dL 6.4-8.[address] [facility] Laboratory - Chemistry and C hemistry - challengeOrdered By: Judy Guan on 01-02-2024 Sodium (U) [Moles/Vol] 52 mmol/L Not Establ. [facility] Laboratory - Chemistry and C hemistry - challengeOrdered By: Josee Guan on 01-02-2024 Albumin/Globulin [Mass ratio] 0.9 {ratio} 0.9-2.4 [facility] ALP [Catalytic activity/Vol] 105 U/L 45-117 [facility] ALT [Catalytic activity/Vol] 30 U/L 16-61 [facility] Globulin (S) [Mass/Vol] 3.6 g/dL 2.2-4.2 [facility] Magnesium [Mass/Vol] 2.0 mg/dL 1.6-2.6 [facility] Serum or plasma thyroid stim ulating hormone (TSH) measurement (units/volume)Ordered By: Josee Guan on 01-02-2024 TSH Qn 0.63 uIU/mL 0.358-3.74 [facility] Thin prep Papanicolaou smear with manual screeningOrdered By: Josee Guan on 01-02-2024 Thin prep Papanicolaou smear with manual screening 3.3 g/dL 3.2-5.0 [facility] Thin prep Papanicolaou smear with manual screening 25 U/L 15-37 [facility] Absolute lymphocyte countOrd ered By: Josee Guan on 01-01-2024 Lymphocytes Auto (Unsp spec) [#/Vol] 1.08 10*3/uL 0.83-4.51 [facility] Automated lymphocyte count a s percentage of total leukocytesOrdered By: Josee Guan on 01-01-2024 Lymphocytes/100 WBC Auto (Unsp spec) 15.7 % 19-41 [facility] [facility] Bas[facility] percentageOrdered B y: Josee Guan on 01-01-2024 Basophils/100 WBC (Bld) 0.3 % 0-1 [facility] Eosinophils/100 WBC (Bld) 0.4 % 0-5 [facility] Hemoglobin (Bld) [Mass/Vol] 13.2 g/dL 13.0-16.5 [facility] Monocytes/100 WBC (Bld) 8.7 % 0-10 [facility] Neutrophils (Bld) [#/Vol] 5.1 10*3/uL 2.0-7.7 [facility] Neutrophils/100 WBC (Bld) 74.5 % 47-70 [facility] WBC (Bld) [#/Vol] 6.9 10*3/uL 4.4-11.[address] [facility] Basophil percentageOrdered B y: Dereck Delvalle on 01-01-2024 Chloride [Moles/Vol] 83 mmol/L 98-107 [facility] Glucose [Mass/Vol] 121 mg/dL 74-[address] [facility] Comment on above: Fasting Glucose resu lt from 100 to 125 mg/dL suggests IMPAIRED HOMEOSTASIS per A.D.A. criteria. Potassium [Moles/Vol] 4.3 mmol/L 3.5-5.1 [facility] Comment on above: Moderate Hemolysis, Result may be falsely increased. Sodium [Moles/Vol] 115 mmol/L 136-[address] [facility] Comment on above: Critical Result(s) C alled at: 13:06:55 01/01/2024 by: Aurea Connor to Sofía Veronica RN (ED). Results read back by same. Determination of erythrocyte mean corpuscular volume (MCV)Ordered By: Josee Guan on 01-01-2024 MCV (RBC) [Entitic vol] 89.5 fL 80-94 [facility] Erythrocyte distribution wid th ratioOrdered By: Josee Guan on 01-01-2024 Erythrocyte distribution width (RBC) [Ratio] 12.1 % 11.6-14.6 [facility] Erythrocyte distribution wid th standard deviationOrdered By: Josee Guan on 01-01-2024 Erythrocyte distribution width (RBC) [Entitic vol] 39.8 fL 35.1-43.9 [facility] Hematocrit Auto (Bld) [Volum e fraction]Ordered By: Josee Guan on 01-01-2024 Hematocrit (Bld) [Volume fraction] 35.9 % 40-54 [facility] Immature granulocytes/100 WB C Auto (Bld)Ordered By: Josee Guan on 01-01-2024 Immature granulocytes/100 WBC (Bld) 0.400 % 0.0-0.9 [facility] Comment on above: IG% - Immature Granu locytes (promyelocytes, myelocytes and metamyelocytes) > 1% indicates that a LEFT SHIFT is Present. Laboratory - Chemistry and C hemistry - challengeOrdered By: Dereck Delvalle on 01-01-2024 CO2 [Moles/Vol] 26.0 mmol/L 21.0-32.0 [facility] Urea nitrogen/Creatinine [Mass ratio] 11.8 mg/mg 10-20 [facility] Laboratory - Hematology and Cell countsOrdered By: Josee Guan on 01-01-2024 MCH (RBC) [Entitic mass] 32.9 pg 27.0-32.0 [facility] MCHC (RBC) [Mass/Vol] 36.8 g/dL 32-36 [facility] Nucleated RBC/100 WBC (Bld) [Ratio] 0.3 % 0-5 [facility] Platelet mean volume (Bld) [Entitic vol] 11.5 fL 6.2-12.0 [facility] Platelets (Bld) [#/Vol] 211 10*3/uL 150-450 [facility] No Panel InformationOrdered By: Dereck Delvalle on 01-01-2024 Estimated Creatinine Clearance Calc 101.99 ml/min [facility] Estimated GFR (MDRD) Amer 151 mL/min >60 [facility] Comment on above: GFR Calc Estimated GFR (MDRD) Non-Af Amer 125 mL/min >60 [facility] Comment on above: Non- GFR Calc RBC Auto (Bld) [#/Vol]Ordere d By: Josee Guan on 01-01-2024 RBC (Bld) [#/Vol] 4.01 10*6/uL 4.6-6.2 [facility] Serum or plasma calcium adelso urement (mass/volume)Ordered By: Dereck Delvalle on 01-01-2024 Calcium [Mass/Vol] 8.3 mg/dL 8.5-10.[address] [facility] Serum or plasma creatinine m easurement (mass/volume)Ordered By: Dereck Delvalle on 01-01-2024 Creatinine [Mass/Vol] 0.68 mg/dL 0.70-1.30 [facility] Comment on above: The validity of the calculated GFR & GFRAA in patients over 70 years has not been determined. Clinical correlation is essential. Serum or plasma urea nitroge n measurement (mass/volume)Ordered By: Dereck Delvalle on 01-01-2024 Urea nitrogen [Mass/Vol] 8 mg/dL 7-18 [facility] Thin prep Papanicolaou smear with manual screeningOrdered By: Dereckgaye Delvalle on 01-01-2024 Thin prep Papanicolaou smear with manual screening 241 mOsm/KG 280-301 [facility] Thin prep Papanicolaou smear with manual screening 6 5-15 [facility] Urine osmolality measurement Ordered By: Dereck Delvalle on 01-01-2024 Osmolality (U) [Osmolality] 351 mOsm/KG >50 [facility] Comment on above: Normal Urine Referen ce Ranges Random: 50 - 1200 mOsm/kg H20 depending on fluid intake Random: >850 mOsm/kg after 12 hour fluid restriction 24 hour: ~300 - 900 mOsm/kg H2O Laboratory - Microbiology an d Antimicrobial susceptibilityon 12-29-2023 SARS-CoV-2 (COVID-19) RNA RADHA+probe Ql (Unsp spec) Not detected [facility] No Panel Informationon 12-28 Influenza Types A,B Rapid (Clinic) Detected [facility] Basophil percentageOrdered B y: Karla Boyer on 10-09-2023 Bilirubin [Mass/Vol] 0.90 mg/dL 0.20-1.00 [facility] Comment on above: For patients on eltr ombopag therapy, use of Dimension [place] TBIL is not recommended. Cholesterol [Mass/Vol] 161 mg/dL <200 [facility] Comment on above: <200 mg/dL Desirable 200-240 mg/dL Borderline >240 mg/dL High Risk Protein [Mass/Vol] 7.6 g/dL 6.4-8.[address] [facility] Triglyceride [Mass/Vol] 49 mg/dL <199 [facility] Comment on above: The drugs N-Acetylcy steine and Metamizole may falsely depress this assay.Serum Triglycerides Reference Interval Normal <150 mg/dL Borderline high 150 - 199 mg/dL High 200 - 499 mg/dL Very High > or = 500 mg/dL Direct bilirubinOrdered By: Karla Boyer on 10-09-2023 Bilirubin.direct [Mass/Vol] 0.24 mg/dL 0.00-0.30 [facility] Laboratory - Chemistry and C hemistry - challengeOrdered By: Karla Boyer on 10-09-2023 ALP [Catalytic activity/Vol] 80 U/L 45-117 [facility] ALT [Catalytic activity/Vol] 24 U/L 16-61 [facility] Globulin (S) [Mass/Vol] 3.9 g/dL 2.2-4.2 [facility] Serum or plasma albumin adelso urement (mass/volume)Ordered By: Karla Boyer on 10-09-2023 Albumin [Mass/Vol] 3.7 g/dL 3.2-5.[address] [facility] Serum or plasma cholesterol in HDL measurement (mass/volume)Ordered By: Karla Boyer on 10-09-2023 Cholesterol in HDL [Mass/Vol] 67 mg/dL >40 [facility] Comment on above: The drugs N-Acetylcy steine and Metamizole may falsely depress this assay. Reference Range HDL <40 mg/dL Low HDL Cholesterol HDL >or= 60 mg/dL High HDL Cholesterol Serum or plasma cholesterol in VLDL measurement (mass/volume)Ordered By: Karla Boyer on 10-09-2023 Cholesterol in VLDL [Mass/Vol] 10 mg/dL 5-40 [facility] Serum or plasma low density lipoprotein (LDL) cholesterol measurement (mass/volume)Ordered By: Karla Boyer on 10-09-2023 Cholesterol in LDL [Mass/Vol] 84 mg/dL 0-130 [facility] Thin prep Papanicolaou smear with manual screeningOrdered By: Karla Boyer on 10-09-2023 Thin prep Papanicolaou smear with manual screening 23 U/L 15-37 [facility] Basophil percentageOrdered B y: Judy Guan on 12-08-2023 Chloride [Moles/Vol] 96 mmol/L 98-107 [facility] Glucose [Mass/Vol] 94 mg/dL 74-[address] [facility] Potassium [Moles/Vol] 4.3 mmol/L 3.5-5.1 [facility] Sodium [Moles/Vol] 129 mmol/L 136-[address] [facility] Laboratory - Chemistry and C hemistry - challengeOrdered By: Judy Guan on 10-04-2023 CO2 [Moles/Vol] 26.0 mmol/L 21.0-32.0 [facility] Urea nitrogen/Creatinine [Mass ratio] 15.1 mg/mg 10-20 [facility] No Panel InformationOrdered By: Judy Guan on 10-04-2023 Estimated GFR (MDRD) Amer 126 mL/min >60 [facility] Comment on above: GFR Calc Estimated GFR (MDRD) Non-Af Amer 104 mL/min >60 [facility] Comment on above: Non- GFR Calc Serum or plasma calcium adelso urement (mass/volume)Ordered By: Judy Guan on 10-04-2023 Calcium [Mass/Vol] 8.8 mg/dL 8.5-10.[address] [facility] Serum or plasma creatinine m easurement (mass/volume)Ordered By: Judy Guan on 10-04-2023 Creatinine [Mass/Vol] 0.80 mg/dL 0.70-1.30 [facility] Comment on above: The validity of the calculated GFR & GFRAA in patients over 70 years has not been determined. Clinical correlation is essential. Serum or plasma urea nitroge n measurement (mass/volume)Ordered By: Judy Guan on 10-04-2023 Urea nitrogen [Mass/Vol] 12 mg/dL 7-18 [facility] Thin prep Papanicolaou smear with manual screeningOrdered By: Judy Guan on 10-04-2023 Thin prep Papanicolaou smear with manual screening 7 5-15 [facility] Basophil percentageOrdered B y: Judy Guan on 06-10-2023 Chloride [Moles/Vol] 95 mmol/L 98-107 [facility] Glucose [Mass/Vol] 101 mg/dL 74-[address] [facility] Comment on above: Fasting Glucose resu lt from 100 to 125 mg/dL suggests IMPAIRED HOMEOSTASIS per A.D.A. criteria. Potassium [Moles/Vol] 4.4 mmol/L 3.5-5.1 [facility] Sodium [Moles/Vol] 128 mmol/L 136-[address] [facility] Laboratory - Chemistry and C hemistry - challengeOrdered By: Judy Guan on 06-10-2023 CO2 [Moles/Vol] 27.0 mmol/L 21.0-32.0 [facility] Urea nitrogen/Creatinine [Mass ratio] 13.8 mg/mg 10-20 [facility] No Panel InformationOrdered By: Judy Guan on 06-10-2023 Estimated GFR (MDRD) Amer 114 mL/min >60 [facility] Comment on above: GFR Calc Estimated GFR (MDRD) Non-Af Amer 94 mL/min >60 [facility] Comment on above: Non- GFR Calc Serum or plasma calcium adelso urement (mass/volume)Ordered By: Judy Guan on 06-10-2023 Calcium [Mass/Vol] 9.3 mg/dL 8.5-10.[address] [facility] Serum or plasma creatinine m easurement (mass/volume)Ordered By: Judy Guan on 06-10-2023 Creatinine [Mass/Vol] 0.87 mg/dL 0.70-1.30 [facility] Comment on above: The validity of the calculated GFR & GFRAA in patients over 70 years has not been determined. Clinical correlation is essential. Serum or plasma urea nitroge n measurement (mass/volume)Ordered By: Judy Guan on 06-10-2023 Urea nitrogen [Mass/Vol] 12 mg/dL 05-14 [facility] Thin prep Papanicolaou smear with manual screeningOrdered By: Judy Guan on 06-10-2023 Thin prep Papanicolaou smear with manual screening 6 5-15 [facility] Basophil percentageOrdered B y: Dr. Blair on 03-04-2023 Bilirubin [Mass/Vol] 0.60 mg/dL 0.20-1.00 [facility] Comment on above: For patients on eltr ombopag therapy, use of Dimension [place] TBIL is not recommended. Chloride [Moles/Vol] 96 mmol/L 98-107 [facility] Cholesterol [Mass/Vol] 149 mg/dL <200 [facility] Comment on above: <200 mg/dL Desirable 200-240 mg/dL Borderline >240 mg/dL High Risk Glucose [Mass/Vol] 98 mg/dL 74-[address] [facility] Potassium [Moles/Vol] 4.3 mmol/L 3.5-5.1 [facility] Protein [Mass/Vol] 7.2 g/dL 6.4-8.[address] [facility] Sodium [Moles/Vol] 130 mmol/L 136-[address] [facility] Triglyceride [Mass/Vol] 55 mg/dL <199 [facility] Comment on above: The drugs N-Acetylcy steine and Metamizole may falsely depress this assay.Serum Triglycerides Reference Interval Normal <150 mg/dL Borderline high 150 - 199 mg/dL High 200 - 499 mg/dL Very High > or = 500 mg/dL Direct bilirubinOrdered By: Dr. Blair on 03-04-2023 Bilirubin.direct [Mass/Vol] 0.21 mg/dL 0.00-0.30 [facility] Laboratory - Chemistry and C hemistry - challengeOrdered By: Dr. Blair on 03-04-2023 ALP [Catalytic activity/Vol] 78 U/L 45-117 [facility] ALT [Catalytic activity/Vol] 27 U/L 16-61 [facility] CO2 [Moles/Vol] 29.0 mmol/L 21.0-32.0 [facility] Globulin (S) [Mass/Vol] 3.5 g/dL 2.2-4.2 [facility] Urea nitrogen/Creatinine [Mass ratio] 15.3 mg/mg 10-20 [facility] No Panel InformationOrdered By: Dr. Blair on 03-04-2023 Estimated GFR (MDRD) Amer 129 mL/min >60 [facility] Comment on above: GFR Calc Estimated GFR (MDRD) Non-Af Amer 106 mL/min >60 [facility] Comment on above: Non- GFR Calc Serum or plasma albumin adelso urement (mass/volume)Ordered By: Dr. Blair on 03-04-2023 Albumin [Mass/Vol] 3.7 g/dL 3.2-5.[address] [facility] Serum or plasma calcium adelso urement (mass/volume)Ordered By: Dr. Blair on 03-04-2023 Calcium [Mass/Vol] 9.2 mg/dL 8.5-10.[address] [facility] Serum or plasma cholesterol in HDL measurement (mass/volume)Ordered By: Dr. Blair on 03-04-2023 Cholesterol in HDL [Mass/Vol] 62 mg/dL >40 [facility] Comment on above: The drugs N-Acetylcy steine and Metamizole may falsely depress this assay. Reference Range HDL <40 mg/dL Low HDL Cholesterol HDL >or= 60 mg/dL High HDL Cholesterol Serum or plasma cholesterol in VLDL measurement (mass/volume)Ordered By: Dr. Blair on 03-04-2023 Cholesterol in VLDL [Mass/Vol] 11 mg/dL 5-40 [facility] Serum or plasma creatinine m easurement (mass/volume)Ordered By: Dr. Blair on 03-04-2023 Creatinine [Mass/Vol] 0.78 mg/dL 0.70-1.30 [facility] Comment on above: The validity of the calculated GFR & GFRAA in patients over 70 years has not been determined. Clinical correlation is essential. Serum or plasma low density lipoprotein (LDL) cholesterol measurement (mass/volume)Ordered By: Dr. Blair on 03-04-2023 Cholesterol in LDL [Mass/Vol] 76 mg/dL 0-130 [facility] Serum or plasma urea nitroge n measurement (mass/volume)Ordered By: Dr. Blair on 03-04-2023 Urea nitrogen [Mass/Vol] 12 mg/dL 7-18 [facility] Thin prep Papanicolaou smear with manual screeningOrdered By: Dr. Blair on 03-04-2023 Thin prep Papanicolaou smear with manual screening 19 U/L 15-37 [facility] Thin prep Papanicolaou smear with manual screening 5 5-15 [facility] Basophil percentageon 2022 Chloride [Moles/Vol] 97 mmol/L 98-107 [facility] Work Phone: Glucose [Mass/Vol] 98 mg/dL 74-[address] [facility] Work Phone: Potassium [Moles/Vol] 4.2 mmol/L 3.5-5.1 [facility] Work Phone: Sodium [Moles/Vol] 129 mmol/L 136-[address] [facility] Work Phone: Laboratory - Chemistry and C hemistry - challengeon 11-07-2022 CO2 [Moles/Vol] 25.0 mmol/L 21.0-32.0 [facility] Work Phone: Urea nitrogen/Creatinine [Mass ratio] 16.1 mg/mg 10-20 [facility] Work Phone: No Panel Informationon 11-07 Estimated GFR (MDRD) Amer 136 mL/min >60 [facility] Work Phone: Comment on above: GFR Calc Estimated GFR (MDRD) Non-Af Amer 112 mL/min >60 [facility] Work Phone: Comment on above: Non- GFR Calc Serum or plasma calcium adelso urement (mass/volume)on 11-07-2022 Calcium [Mass/Vol] 9.1 mg/dL 8.5-10.[address] [facility] Work Phone: Serum or plasma creatinine m easurement (mass/volume)on 11-07-2022 Creatinine [Mass/Vol] 0.75 mg/dL 0.70-1.30 [facility] Work Phone: Comment on above: The validity of the calculated GFR & GFRAA in patients over 70 years has not been determined. Clinical correlation is essential. Serum or plasma urea nitroge n measurement (mass/volume)on 11-07-2022 Urea nitrogen [Mass/Vol] 12 mg/dL 7-18 [facility] Work Phone: Thin prep Papanicolaou smear with manual screeningon 11-07-2022 Thin prep Papanicolaou smear with manual screening 7 5-15 [facility] Work Phone: Basophil percentageon 2021 Bilirubin [Mass/Vol] 0.70 mg/dL 0.20-1.00 [facility] Work Phone: Comment on above: For patients on eltr ombopag therapy, use of Dimension [place] TBIL is not recommended. Cholesterol [Mass/Vol] 158 mg/dL <200 [facility] Work Phone: [phone] Comment on above: <200 mg/dL Desirable 200-240 mg/dL Borderline >240 mg/dL High Risk Protein [Mass/Vol] 7.4 g/dL 6.4-8.[address] [facility] Work Phone: [phone] Triglyceride [Mass/Vol] 59 mg/dL <199 [facility] Work Phone: [phone] Comment on above: The drugs N-Acetylcy steine and Metamizole may falsely depress this assay.Serum Triglycerides Reference Interval Normal <150 mg/dL Borderline high 150 - 199 mg/dL High 200 - 499 mg/dL Very High > or = 500 mg/dL Direct bilirubinon 2 Bilirubin.direct [Mass/Vol] 0.20 mg/dL 0.00-0.30 [facility] Work Phone: [phone] Laboratory - Chemistry and C hemistry - challengeon 07-09-2022 ALP [Catalytic activity/Vol] 84 U/L 45-117 [facility] Work Phone: [phone] ALT [Catalytic activity/Vol] 25 U/L 16-61 [facility] Work Phone: [phone] Globulin (S) [Mass/Vol] 3.7 g/dL 2.2-4.2 [facility] Work Phone: [phone] Serum or plasma albumin adelso urement (mass/volume)on 07-09-2022 Albumin [Mass/Vol] 3.7 g/dL 3.2-5.[address] [facility] Work Phone: [phone] Serum or plasma cholesterol in HDL measurement (mass/volume)on 07-09-2022 Cholesterol in HDL [Mass/Vol] 62 mg/dL >40 [facility] Work Phone: [phone] Comment on above: The drugs N-Acetylcy steine and Metamizole may falsely depress this assay. Reference Range HDL <40 mg/dL Low HDL Cholesterol HDL >or= 60 mg/dL High HDL Cholesterol Serum or plasma cholesterol in VLDL measurement (mass/volume)on 07-09-2022 Cholesterol in VLDL [Mass/Vol] 12 mg/dL 5-40 [facility] Work Phone: Serum or plasma low density lipoprotein (LDL) cholesterol measurement (mass/volume)on 07-09-2022 Cholesterol in LDL [Mass/Vol] 84 mg/dL 0-130 [facility] Work Phone: Thin prep Papanicolaou smear with manual screeningon 07-09-2022 Thin prep Papanicolaou smear with manual screening 20 U/L 15-37 [facility] Work Phone: Basophil percentageon 2021 Chloride [Moles/Vol] 94 mmol/L 98-107 [facility] Work Phone: Glucose [Mass/Vol] 100 mg/dL 74-[address] [facility] Work Phone: Comment on above: Fasting Glucose resu lt from 100 to 125 mg/dL suggests IMPAIRED HOMEOSTASIS per A.D.A. criteria. Potassium [Moles/Vol] 4.0 mmol/L 3.5-5.1 [facility] Work Phone: Sodium [Moles/Vol] 129 mmol/L 136-[address] [facility] Work Phone: Laboratory - Chemistry and C hemistry - challengeon 02-13-2022 CO2 [Moles/Vol] 27.0 mmol/L 21.0-32.0 [facility] Work Phone: Urea nitrogen/Creatinine [Mass ratio] 16.3 mg/mg 10-20 [facility] Work Phone: No Panel Informationon 02-13 Estimated GFR (MDRD) Amer 107 mL/min >60 [facility] Work Phone: Comment on above: GFR Calc Estimated GFR (MDRD) Non-Af Amer 89 mL/min >60 [facility] Work Phone: Comment on above: Non- GFR Calc Serum or plasma calcium adelso urement (mass/volume)on 02-13-2022 Calcium [Mass/Vol] 8.9 mg/dL 8.5-10.[address] [facility] Work Phone: Serum or plasma creatinine m easurement (mass/volume)on 02-13-2022 Creatinine [Mass/Vol] 0.92 mg/dL 0.70-1.30 [facility] Work Phone: Comment on above: The validity of the calculated GFR & GFRAA in patients over 70 years has not been determined. Clinical correlation is essential. Serum or plasma urea nitroge n measurement (mass/volume)on 02-13-2022 Urea nitrogen [Mass/Vol] 15 mg/dL 7-18 [facility] Work Phone: Thin prep Papanicolaou smear with manual screeningon 02-13-2022 Thin prep Papanicolaou smear with manual screening 8 5-15 [facility] Work Phone: Basophil percentageon 2021 Chloride [Moles/Vol] 93 mmol/L 98-107 [facility] Work Phone: Glucose [Mass/Vol] 102 mg/dL 74-[address] [facility] Work Phone: Comment on above: Fasting Glucose resu lt from 100 to 125 mg/dL suggests IMPAIRED HOMEOSTASIS per A.D.A. criteria. Potassium [Moles/Vol] 4.2 mmol/L 3.5-5.1 [facility] Work Phone: Sodium [Moles/Vol] 126 mmol/L 136-[address] [facility] Work Phone: [phone] Laboratory - Chemistry and C hemistry - challengeon 11-16-2021 CO2 [Moles/Vol] 26.0 mmol/L 21.0-32.0 [facility] Work Phone: [phone] Urea nitrogen/Creatinine [Mass ratio] 12.6 mg/mg 10- [facility] Work Phone: [phone] No Panel Informationon 11-16 Estimated GFR (MDRD) Amer 86 mL/min >60 [facility] Work Phone: Comment on above: GFR Calc Estimated GFR (MDRD) Non-Af Amer 71 mL/min >60 [facility] Work Phone: Comment on above: Non- GFR Calc Serum or plasma calcium adelso urement (mass/volume)on 11-16-2021 Calcium [Mass/Vol] 8.6 mg/dL 8.5-10.[address] [facility] Work Phone: Serum or plasma creatinine m easurement (mass/volume)on 11-16-2021 Creatinine [Mass/Vol] 1.11 mg/dL 0.70-1.30 [facility] Work Phone: Comment on above: The validity of the calculated GFR & GFRAA in patients over 70 years has not been determined. Clinical correlation is essential. Serum or plasma urea nitroge n measurement (mass/volume)on 11-16-2021 Urea nitrogen [Mass/Vol] 14 mg/dL 7-18 [facility] Work Phone: Thin prep Papanicolaou smear with manual screeningon 11-16-2021 Thin prep Papanicolaou smear with manual screening 7 5-15 [facility] Work Phone: Basophil percentageon 2021 Chloride [Moles/Vol] 88 mmol/L 98-107 [facility] Work Phone: Glucose [Mass/Vol] 91 mg/dL 74-[address] [facility] Work Phone: Comment on above: Please note revised GLUCOSE reference range effective 2017. Potassium [Moles/Vol] 4.0 mmol/L 3.5-5.1 [facility] Work Phone: Sodium [Moles/Vol] 123 mmol/L 136-[address] [facility] Work Phone: Laboratory - Chemistry and C hemistry - challengeon 11-02-2021 CO2 [Moles/Vol] 26.0 mmol/L 21.0-32.0 [facility] Work Phone: Urea nitrogen/Creatinine [Mass ratio] 11.9 mg/mg 10-20 [facility] Work Phone: No Panel Informationon 11-02 Estimated GFR (MDRD) Amer 134 mL/min >60 [facility] Work Phone: Comment on above: GFR Calc Estimated GFR (MDRD) Non-Af Amer 110 mL/min >60 [facility] Work Phone: Comment on above: Non- GFR Calc Serum or plasma calcium adelso urement (mass/volume)on 11-02-2021 Calcium [Mass/Vol] 8.8 mg/dL 8.5-10.[address] [facility] Work Phone: Serum or plasma creatinine m easurement (mass/volume)on 11-02-2021 Creatinine [Mass/Vol] 0.76 mg/dL 0.70-1.30 [facility] Work Phone: Comment on above: The validity of the calculated GFR & GFRAA in patients over 70 years has not been determined. Clinical correlation is essential. Serum or plasma urea nitroge n measurement (mass/volume)on 11-02-2021 Urea nitrogen [Mass/Vol] 9 mg/dL 7-18 [facility] Work Phone: Thin prep Papanicolaou smear with manual screeningon 11-02-2021 Thin prep Papanicolaou smear with manual screening 9 5-15 [facility] Work Phone: Basophil percentageon 2020 Chloride [Moles/Vol] 88 mmol/L 98-107 [facility] Work Phone: Glucose [Mass/Vol] 101 mg/dL 74-[address] [facility] Work Phone: Comment on above: Fasting Glucose resu lt from 100 to 125 mg/dL suggests IMPAIRED HOMEOSTASIS per A.D.A. criteria.Please note revised GLUCOSE reference range effective 2017. Potassium [Moles/Vol] 4.1 mmol/L 3.5-5.1 [facility] Work Phone: Sodium [Moles/Vol] 121 mmol/L 136-[address] [facility] Work Phone: Laboratory - Chemistry and C hemistry - challengeon 10-26-2021 CO2 [Moles/Vol] 25.0 mmol/L 21.0-32.0 [facility] Work Phone: Urea nitrogen/Creatinine [Mass ratio] 10.9 mg/mg 10-20 [facility] Work Phone: No Panel Informationon 10-26 Estimated GFR (MDRD) Amer 139 mL/min >60 [facility] Work Phone: Comment on above: GFR Calc Estimated GFR (MDRD) Non-Af Amer 115 mL/min >60 [facility] Work Phone: Comment on above: Non- GFR Calc Serum or plasma calcium adelso urement (mass/volume)on 10-26-2021 Calcium [Mass/Vol] 9.0 mg/dL 8.5-10.[address] [facility] Work Phone: Serum or plasma creatinine m easurement (mass/volume)on 10-26-2021 Creatinine [Mass/Vol] 0.73 mg/dL 0.70-1.30 [facility] Work Phone: Comment on above: The validity of the calculated GFR & GFRAA in patients over 70 years has not been determined. Clinical correlation is essential. Serum or plasma urea nitroge n measurement (mass/volume)on 10-26-2021 Urea nitrogen [Mass/Vol] 8 mg/dL 7-18 [facility] Work Phone: [phone] Thin prep Papanicolaou smear with manual screeningon 10-26-2021 Thin prep Papanicolaou smear with manual screening 8 5-15 [facility] Work Phone: Laboratory - Microbiology an d Antimicrobial susceptibilityon 10-25-2021 SARS-CoV-2 (COVID-19) RNA RADHA+probe Ql (Unsp spec) Negative Not Detect [facility] Work Phone: Comment on above: Normal Reference Ran ge: Not DetectedMethod:(RT-PCR) real-time reverse transcriptase PCRLuminex HENRIETTA Instrument*The Food and Drug Administration (FDA) has issued an Emergency Use Authorization (EAU) for the [employer] SARS-CoV-2 Assay for the rapid detection of [...] current medications (procedure) Done Invalid Interpretation Code [facility] Work Phone: [phone] Fall risk assessment No Invalid Interpretation Code [facility] Work Phone: [phone] Protein mass conc Done [facility] [employer] [facility] Work Phone: [phone] Clinical Lists Update: Prelo senior gis analyst 05-14-2017 Left ventricular Ejection fraction 55 % Invalid Interpretation Code [facility] Work Phone: [phone] Lab Report: Lipid Profileon 05-03-2017 Cholesterol 167 mg/dL Invalid Interpretation Code 200 [facility] Work Phone: [phone] HDL Cholesterol 68 mg/dL Invalid Interpretation Code [facility] Work Phone: [phone] LDL Cholesterol 88 mg/dL Invalid Interpretation Code 0-130 [facility] Work Phone: [phone] Triglyceride 55 mg/dL Invalid Interpretation Code [facility] Work Phone: [phone] very low density lipoproteins 11 mg/dL Invalid Interpretation Code 5-40 [facility] Work Phone: [phone] Lab Report: Liver Profileon 05-03-2017 Alanine aminotransferase (ALT) 25 U/L Invalid Interpretation Code 12-78 [facility] Work Phone: [phone] Albumin 3.8 g/dL Invalid Interpretation Code 3.4-5.0 [facility] Work Phone: [phone] Alkaline phosphatase (ALP) 87 U/L Invalid Interpretation Code 45-117 [facility] Work Phone: [phone] ALP enzyme act/vol (Bld) 87 U/L 45-117 [facility] Work Phone: [phone] Aspartate aminotransferase (AST) 18 U/L Invalid Interpretation Code 15-37 [facility] Work Phone: [phone] Bilirubin (direct) 0.19 mg/dL Invalid Interpretation Code 0.00-0.30 [facility] Work Phone: [phone] Bilirubin (total) 0.70 mg/dL Invalid Interpretation Code 0.20-1.00 [facility] Work Phone: [phone] Globulin 3.9 g/dL High 2.3-3.5 [facility] Work Phone: [phone] Globulin mass conc (S) 3.9 g/dL High 2.3-3.5 [facility] Work Phone: [phone] Protein 7.7 g/dL Invalid Interpretation Code 6.4-8.2 [facility] Work Phone: [phone]) Office Visiton 11-16-2016 Documentation of current medications (procedure) Done Invalid Interpretation Code [facility] Work Phone: [phone] Protein mass conc Done [facility] Work Phone: [phone] Tobacco smoking status NHIS Former smoker [facility] Work Phone: [phone] Tobacco use [facility] Former smoker Invalid Interpretation Code [facility] Work Phone: [phone] Replaced Document: Judy Ravi CG Observationson 11-16-2016 EKG QRS axis 64 deg Invalid Interpretation Code [facility] Work Phone: [phone] electrocardiogram interpretation Sinus Rhythm WITHIN NORMAL LIMITS Invalid Interpretation Code [facility] Work Phone: [phone] GE use only - for [employer] import when terms are not otherwise specified 389 ms Invalid Interpretation Code [facility] Work Phone: [phone] Interpretation Sinus Rhythm WITHIN NORMAL LIMITS Invalid Interpretation Code [facility] Work Phone: [phone] P [place] 54 deg Invalid Interpretation Code [facility] Work Phone: [phone] P wave axis, electrocardiogram 54 deg Invalid Interpretation Code [facility] Work Phone: [phone] [place] Interval 184 ms Invalid Interpretation Code [facility] Work Phone: [phone] [place] interval, electrocardiogram 184 ms Invalid Interpretation Code [facility] Work Phone: [phone] Pulse (Heart Rate) 64 /min Invalid Interpretation Code [facility] Work Phone: [phone] QRS axis, electrocardiogram 64 deg Invalid Interpretation Code [facility] Work Phone: [phone] QRS Duration 100 ms Invalid Interpretation Code [facility] Work Phone: [phone] QRS duration, electrocardiogram 100 ms Invalid Interpretation Code [facility] Work Phone: [phone] QT Interval new path ms Invalid Interpretation Code [facility] Work Phone: [phone] QT interval, electrocardiogram new path ms Invalid Interpretation Code [facility] Work Phone: [phone] QTc Rausch 389 ms Invalid Interpretation Code [facility] Work Phone: [phone] T [place] 53 deg Invalid Interpretation Code [facility] Work Phone: [phone] T wave axis, electrocardiogram 53 deg Invalid Interpretation Code [facility] Work Phone: [phone] Clinical Lists Update: Prelo senior gis analyst 11-14-2016 Left ventricular Ejection fraction 55 % Invalid Interpretation Code [facility] Work Phone: [phone]) Office Visit: Cold / Flu sym ptomson 05-17-2016 Tobacco smoking status NHIS Never Invalid Interpretation Code [facility] Work Phone: [phone] Lab Report: (P) Urinalysis, Completeon 04-27-2016 Albumin Ql (U) 15 High Negative [facility] Work Phone: [phone] Bilirubin Ql (U) Negative Invalid Interpretation Code Negative [facility] Work Phone: [phone] Ketones mass conc (U) Negative Negative [facility] Work Phone: [phone] NITRITE UR Negative Invalid Interpretation Code Negative [facility] Work Phone: [phone] Nitrite Urine Negative Invalid Interpretation Code Negative [facility] Work Phone: [phone] Occult Blood, urine 150 High Negative [facility] Work Phone: [phone] OCCULT BLOOD-UR 150 High Negative [facility] Work Phone: [phone] pH (U) 7.0 [pH] 5.0 - 8.0 [facility] Work Phone: [phone] specific gravity, urine 1.010 Invalid Interpretation Code 1.002-1.030 [facility] Work Phone: [phone] Urine, bilirubin presence Negative Invalid Interpretation Code Negative [facility] Work Phone: [phone] Urine, clarity Clear Invalid Interpretation Code Clear [facility] Work Phone: [phone] Urine, color Yellow Invalid Interpretation Code Yellow [facility] Work Phone: [phone] Urine, glucose presence Normal mg/dl Invalid Interpretation Code Normal [facility] Work Phone: [phone] Urine, ketones presence Negative Invalid Interpretation Code Negative [facility] Work Phone: [phone] Urine, leukocyte esterase presence 100 High Negative [facility] Work Phone: [phone] Urine, pH 7.0 [pH] Invalid Interpretation Code 5.0 - 8.0 [facility] Work Phone: [phone] Urine, protein 15 mg/dL High Negative [facility] Work Phone: [phone] UROBILI Normal mg/dl Invalid Interpretation Code Normal [facility] Work Phone: [phone] urobilinogen, urine, by dipstick Normal mg/dl Invalid Interpretation Code Normal [facility] Work Phone: [phone]) Lab Report: CT/NG [facility] BY PCR on 04-27-2016 Chlamydia trachomatis DNA [Presence] in Urine by Probe and target amplification method Negative Invalid Interpretation Code Negative [facility] Work Phone: [phone] Neisseria gonorrhoeae presence Negative Invalid Interpretation Code Negative [facility] Work Phone: [phone] Lab Report: Comprehensive [place] tabolic Profilon 04-27-2016 Albumin/Globulin Ratio 1.1 {ratio} Invalid Interpretation Code 0.9-2.4 [facility] Work Phone: [phone] Anion gap 8 mmol/L Invalid Interpretation Code 5-15 [facility] Work Phone: [phone] Anion gap molar conc 8 mmol/L 5-15 [facility] Work Phone: [phone] BUN/Creatinine Ratio 16.3 RATIO Invalid Interpretation Code 10-20 [facility] Work Phone: [phone] Calcium 8.7 mg/dL Invalid Interpretation Code 8.5-10.1 [facility] Work Phone: [phone] Chloride 100 mmol/L Invalid Interpretation Code 98-107 [facility] Work Phone: [phone] CO2 25.0 mmol/L Invalid Interpretation Code 21.0-32.0 [facility] Work Phone: [phone] CO2 ppres (BldV) 25.0 mmol/L 21.0-32.0 [facility] Work Phone: [phone] Creatinine 0.68 mg/dL Low 0.70-1.30 [facility] Work Phone: [phone] eGFR (non-black) 129 mL/min/{1.73_m2} Invalid Interpretation Code >60 [facility] Work Phone: [phone] eGFR (non-black) 156 mL/min/{1.73_m2} Invalid Interpretation Code >60 [facility] Work Phone: [phone] EST GFR - AA 156 mL/min >60 [facility] Work Phone: [phone] Glucose 83 mg/dL Invalid Interpretation Code 70-110 [facility] Work Phone: [phone] Glucose mass conc 83 mg/dL Invalid Interpretation Code 70-110 [facility] Work Phone: [phone] Potassium 4.1 mmol/L Invalid Interpretation Code 3.5-5.1 [facility] Work Phone: [phone] Sodium 133 mmol/L Low 136-145 [facility] Work Phone: [phone] Urea nitrogen 11 mg/dL Invalid Interpretation Code 7-18 [facility] Work Phone: [phone] Lab Report: Urinalysis, Comp leteon 04-27-2016 Bacteria LM.HPF #/area (Urine sed) 0 SEEN /hpf None Seen [facility] Work Phone: [phone] Mucus Ql (Urine sed) [address] [facility] Work Phone: [phone] Urine, bacteria in sediment 0 /[HPF] Invalid Interpretation Code None Seen [facility] Work Phone: [phone] Urine, epithelial cells in sediment 0 SEEN Invalid Interpretation Code 0-5 [facility] Work Phone: [phone] Urine, erythrocytes in sediment by volume 0-5 SEEN Invalid Interpretation Code 0-5 [facility] Work Phone: [phone] Urine, mucus presence in sediment 0 SEEN Invalid Interpretation Code [facility] Work Phone: [phone] WBC #/vol (Bld) 25-50 SEEN 0-5 [facility] Work Phone: [phone] WBC (Leukocytes) 25-50 SEEN Invalid Interpretation Code 0-5 [facility] Work Phone: [phone]) Office Visit: Possible UTIon 04-19-2016 blood in urine (hemoglobin) by dipstick 1+ Invalid Interpretation Code [facility] Work Phone: [phone] Glucose Test strip mass conc (U) Negative [facility] Work Phone: [phone] Nitrite Ql (U) Negative [facility] Work Phone: [phone] Urine, appearance clear Invalid Interpretation Code [facility] Work Phone: [phone] Urine, glucose presence Negative Invalid Interpretation Code [facility] Work Phone: [phone] Urine, nitrite presence Negative Invalid Interpretation Code [facility] Work Phone: [phone] Urine, urobilinogen presence Negative Invalid Interpretation Code [facility] Work Phone: [phone]) Clinical Lists Update: Prelo senior gis analyst 08-19-2015 LDL/HDL ratio, serum 1.3 Invalid Interpretation Code [facility] Work Phone: [phone] Office Visiton 01-07-2015 cardiac risk group C Invalid Interpretation Code [facility] Work Phone: [phone] General cardiovascular disease 10Y risk [#] Desha.D'Agostgregorio N/A Invalid Interpretation Code [facility] Work Phone: [phone] Replaced Document: Judy Ravi CG Observationson 04-29-2013 Pulse (Heart Rate) 391 ms Invalid Interpretation Code [facility] Work Phone: [phone] Clinical Lists Update: Prelo senior gis analyst 02-08-2012 Hematocrit (HCT) 39.7 % Invalid Interpretation Code [facility] Work Phone: [phone] Hematocrit Volume Fraction (Bld) 39.7 % [facility] Work Phone: [phone] Hemoglobin (HGB) 13.4 g/dL Invalid Interpretation Code [facility] Work Phone: [phone] Platelets 213 10*3/mm3 Invalid Interpretation Code [facility] Work Phone: [phone] Platelets #/vol (Bld) 213 10*3/mm3 [facility] Work Phone: [phone] WBC #/vol (Bld) 5.9 10*3/uL [facility] Work Phone: [phone] WBC (Leukocytes) 5.9 10*3/uL Invalid Interpretation Code [facility] Work Phone: [phone] Vital Signs Date Time Vital Sign Value Performing Clinician Facility 08-10-2025 12:54-0400 Body height 174 cm Jany Blanco MD Work Phone: [facility] 08-10-2025 12:54-0400 Body height 173.99 cm Jany Blanco MD Work Phone: [facility] 08-10-2025 12:54-0400 Body mass index (BMI) [Ratio] 22.86 kg/m2 Jany Blanco MD Work Phone: [facility] 08-10-2025 12:54-0400 Body weight 69 kg Jany Blanco MD Work Phone: [facility] 08-10-2025 12:54-0400 Body weight 68.95 kg Jany Blanco MD Work Phone: [facility] 08-10-2025 12:54-0400 BP SITE #1 Jany Blanco MD Work Phone: [facility] 08-10-2025 12:54-0400 Diastolic blood pressure 73 mm[Hg] Jany Blanco MD Work Phone: [facility] 08-10-2025 12:54-0400 Heart rate 79 /min Jany Blanco MD Work Phone: [facility] 08-10-2025 12:54-0400 HGHTCHNVIS Jany Blanco MD Work Phone: [facility] 08-10-2025 12:54-0400 Systolic blood pressure 138 mm[Hg] Jany Blanco MD Work Phone: [facility] 08-10-2025 12:54-0400 VITALSDONE Jany Blanco MD Work Phone: [facility] 06-02-2025 14:55-0400 Body height 174 cm Therese Carter PA-C Work Phone: [facility] 06-02-2025 14:55-0400 Body height 173.99 cm Therese VALENZUELA-C Work Phone: [facility] 06-02-2025 14:55-0400 Body mass index (BMI) [Ratio] 22.26 kg/m2 Therese Carter PA-C Work Phone: [facility] 06-02-2025 14:55-0400 Body weight 67 kg Therese Carter PA-C Work Phone: [facility] 06-02-2025 14:55-0400 Body weight 67.13 kg Therese Carter PA-C Work Phone: [facility] 06-02-2025 14:55-0400 BP SITE #1 Therese Klucar PA-C Work Phone: [facility] 06-02-2025 14:55-0400 Diastolic blood pressure 76 mm[Hg] Therese Carter PA-C Work Phone: [facility] 06-02-2025 14:55-0400 HGHTCHNVIS Therese Carter PA-C Work Phone: [facility] 06-02-2025 14:55-0400 Systolic blood pressure 137 mm[Hg] Therese Carter PA-C Work Phone: [facility] 06-02-2025 14:55-0400 VITALSDONE Therese Carter PA-C Work Phone: [facility] 05-21-2025 08:52-0400 Body height 173 cm Rubio Grimes MD Work Phone: [facility] 05-21-2025 08:52-0400 Body mass index (BMI) [Ratio] 22.42 kg/m2 Rubio Grimes MD Work Phone: [facility] 05-21-2025 08:52-0400 Body temperature 97.59 [degF] Rubio Grimes MD Work Phone: [facility] 05-21-2025 08:52-0400 Body weight 67.1 kg Rubio Grimes MD Work Phone: [facility] 05-21-2025 08:52-0400 Diastolic blood pressure 73 mm[Hg] Rubio Grimes MD Work Phone: [facility] 05-21-2025 08:52-0400 Heart rate 75 /min Rubio Grimes MD Work Phone: [facility] 05-21-2025 08:52-0400 SaO2% (BldA) [Mass fraction] 97 % Rubio Grimes MD Work Phone: [facility] 05-21-2025 08:52-0400 Systolic blood pressure 130 mm[Hg] Rubio Grimes MD Work Phone: [facility] 03-02-2025 08:18-0400 Body height 177.[address] Jeferson Thomas MD Work Phone: [facility] 03-02-2025 08:18-0400 Body mass index (BMI) [Ratio] 21.7 kg/m2 Dr. Jeferson Thomas MD Work Phone: [facility] 03-02-2025 08:18-0400 Body weight 68.[address] Jeferson Thomas MD Work Phone: [facility] 03-02-2025 08:18-0400 Diastolic blood pressure 89 mm[Hg] Dr. Jeferson Thomas MD Work Phone: [facility] 03-02-2025 08:18-0400 Heart rate 80 /min Dr. Jeferson Thomas MD Work Phone: [facility] 03-02-2025 08:18-0400 Respiratory rate 14 /min Dr. Jeferson Thomas MD Work Phone: [facility] 03-02-2025 08:18-0400 Systolic blood pressure 156 mm[Hg] Dr. Jeferson Thomas MD Work Phone: [facility] 11-18-2024 08:54-0500 Body mass index (BMI) [Ratio] 22.8 kg/m2 Rubio Grimes MD Work Phone: [facility] 11-18-2024 08:54-0500 Body weight 67.13 kg Rubio Grimes MD Work Phone: [facility] 11-18-2024 08:54-0500 Diastolic blood pressure 78 mm[Hg] Rubio Grimes MD Work Phone: [facility] 11-18-2024 08:54-0500 Heart rate 78 /min Rubio Grimes MD Work Phone: [facility] 11-18-2024 08:54-0500 Systolic blood pressure 146 mm[Hg] Rubio Grimes MD Work Phone: [facility] 10-08-2024 09:43-0500 Body temperature 98.4 [degF] Dr. Jeferson Thomas MD Work Phone: [facility] 10-08-2024 09:43-0500 Body weight 66.[address] Jeferson Thomas MD Work Phone: [facility] 10-08-2024 09:43-0500 Diastolic blood pressure 76 mm[Hg] Dr. Jeferson Thomas MD Work Phone: [facility] 10-08-2024 09:43-0500 Heart rate 70 /min Dr. Jeferson Thomas MD Work Phone: [facility] 10-08-2024 09:43-0500 Respiratory rate 15 /min Dr. Jeferson Thomas MD Work Phone: [facility] 10-08-2024 09:43-0500 SaO2% (BldA) [Mass fraction] 96 % Dr. Jeferson Thomas MD Work Phone: [facility] 10-08-2024 09:43-0500 Systolic blood pressure 156 mm[Hg] Dr. Jeferson Thomas MD Work Phone: [facility] 08-13-2024 08:55-0400 Body mass index (BMI) [Ratio] 22.03 kg/m2 Hair Adames APRN.PLATING INSPECTOR Work Phone: [facility] 08-13-2024 08:55-0400 Body weight 64.86 kg Hair Adames APRN.PLATING INSPECTOR Work Phone: [facility] 08-13-2024 08:55-0400 Diastolic blood pressure 87 mm[Hg] Hair Adames APRN.PLATING INSPECTOR Work Phone: [facility] 08-13-2024 08:55-0400 Heart rate 80 /min Hair Adames APRN.PLATING INSPECTOR Work Phone: [facility] 08-13-2024 08:55-0400 Systolic blood pressure 173 mm[Hg] Hair Adames APRN.PLATING INSPECTOR Work Phone: [facility] 05-21-2024 08:52-0400 Body mass index (BMI) [Ratio] 22.07 kg/m2 Hair Adames APRN.PLATING INSPECTOR Work Phone: [facility] 05-21-2024 08:52-0400 Body weight 65 kg Hair Adames APRN.PLATING INSPECTOR Work Phone: [facility] 05-21-2024 08:52-0400 Diastolic blood pressure 78 mm[Hg] Hair Adames APRN.PLATING INSPECTOR Work Phone: [facility] 05-21-2024 08:52-0400 Heart rate 71 /min Hair Adames APRN.PLATING INSPECTOR Work Phone: [facility] 05-21-2024 08:52-0400 Systolic blood pressure 146 mm[Hg] Hair Adames APRN.PLATING INSPECTOR Work Phone: [facility] 04-07-2024 13:27-0400 Body height 171.6 cm Pulm Wstr Work Phone: [facility] 04-07-2024 13:27-0400 Body mass index (BMI) [Ratio] 21.87 kg/m2 Pulm [facility]str Work Phone: [facility] 04-07-2024 13:27-0400 Body weight 64.41 kg Pulm Wstr Work Phone: [facility] 04-07-2024 13:27-0400 Diastolic blood pressure 75 mm[Hg] Pulm Wstr Work Phone: [facility] 04-07-2024 13:27-0400 Heart rate 86 /min Pulm Wstr Work Phone: [facility] 04-07-2024 13:27-0400 Respiratory rate 14 /min Pulm [facility]str Work Phone: [facility] 04-07-2024 13:27-0400 SaO2% (BldA) [Mass fraction] 95 % Pulm Wstr Work Phone: [facility] 04-07-2024 13:27-0400 Systolic blood pressure 129 mm[Hg] Pulm Wstr Work Phone: [facility] 03-30-2024 12:15-0400 Body height 177.8 cm Ramon Samuel MD Work Phone: [facility] 03-30-2024 12:15-0400 Body mass index (BMI) [Ratio] 20.88 kg/m2 Ramon Samuel MD Work Phone: [facility] 03-30-2024 12:15-0400 Body weight 66 kg Ramon Samuel MD Work Phone: [facility] 03-30-2024 12:15-0400 Diastolic blood pressure 66 mm[Hg] Ramon Samuel MD Work Phone: [facility] 03-30-2024 12:15-0400 Heart rate 72 /min Ramon Samuel MD Work Phone: [facility] 03-30-2024 12:15-0400 SaO2% (BldA) [Mass fraction] 98 % Ramon Samuel MD Work Phone: [facility] 03-30-2024 12:15-0400 Systolic blood pressure 146 mm[Hg] Ramon Samuel MD Work Phone: [facility] 02-19-2024 08:06-0400 Body height 177.8 cm Rubio Grimes MD Work Phone: [facility] 02-19-2024 08:06-0400 Body mass index (BMI) [Ratio] 20.47 kg/m2 Rubio Grimes MD Work Phone: [facility] 02-19-2024 08:06-0400 Body weight 64.7 kg Rubio Grimes MD Work Phone: [facility] 04-24-2024 08:06-0400 Diastolic blood pressure 79 mm[Hg] Rubio Grimes MD Work Phone: [facility] 02-19-2024 08:06-0400 Heart rate 70 /min Rubio Grimes MD Work Phone: [facility] 02-19-2024 08:06-0400 Respiratory rate 16 /min Rubio Grimes MD Work Phone: [facility] 02-19-2024 08:06-0400 Systolic blood pressure 131 mm[Hg] Rubio Grimes MD Work Phone: [facility] 01-03-2024 14:15-0500 Body temperature 97.6 [degF] Dr. Rick Gaffney Work Phone: [facility] 01-03-2024 14:15-0500 Diastolic blood pressure 86 mm[Hg] Dr. Rick Gaffney Work Phone: [facility] 01-03-2024 14:15-0500 Heart rate 65 /min Dr. Rick Gaffney Work Phone: [facility] 01-03-2024 14:15-0500 Respiratory rate 16 /min Dr. Rick Gaffney Work Phone: [facility] 01-03-2024 14:15-0500 SaO2% (BldA) [Mass fraction] 99 % Dr. Rick Gaffney Work Phone: [facility] 01-03-2024 14:15-0500 Systolic blood pressure 143 mm[Hg] Dr. Rick Gaffney Work Phone: [facility] 01-03-2024 04:29-0500 Body mass index (BMI) [Ratio] 20.2 kg/m2 Dr. Rick Gaffney Work Phone: [facility] 01-03-2024 04:29-0500 Body weight [address] Rick Gaffney Work Phone: [facility] 01-02-2024 14:20-0500 Body height 177.[address] Rick Gaffney Work Phone: [facility] 01-01-2024 17:12-0500 Body temperature 96.8 [degF] Dr. Rick Gaffney Work Phone: [facility] 01-01-2024 17:12-0500 Diastolic blood pressure 75 mm[Hg] Dr. Rick Gaffney Work Phone: [facility] 01-01-2024 17:12-0500 Heart rate 65 /min Dr. Rick Gaffney Work Phone: [facility] 01-01-2024 17:12-0500 Respiratory rate 16 /min Dr. Rick Gaffney Work Phone: [facility] 01-01-2024 17:12-0500 SaO2% (BldA) [Mass fraction] 97 % Dr. Rick Gaffney Work Phone: [facility] 01-01-2024 17:12-0500 Systolic blood pressure 150 mm[Hg] Dr. Rick Gaffney Work Phone: [facility] [facility] 01-01-2024 12:07-0500 Body mass index (BMI) [Ratio] 20.7 kg/m2 Dr. Rick Gaffney Work Phone: [facility] 01-01-2024 12:07-0500 Body weight 65.[address] Rick Gaffney Work Phone: [facility] 01-01-2024 11:51-0500 Body height 177.[address] Rick Gaffney Work Phone: [facility] 12-29-2023 09:39-0500 Body mass index (BMI) [Ratio] 20 kg/m2 Dr. Rick Gaffney Work Phone: [facility] 12-29-2023 09:39-0500 Body temperature 100 [degF] Dr. Rick Gaffney Work Phone: [facility] 12-29-2023 09:39-0500 Body weight 63.[address] Rick Gaffney Work Phone: [facility] 12-29-2023 09:39-0500 Diastolic blood pressure 72 mm[Hg] Dr. Rick Gaffney Work Phone: [facility] 12-29-2023 09:39-0500 Heart rate 98 /min Dr. Rick Gaffney Work Phone: [facility] 12-29-2023 09:39-0500 Respiratory rate 12 /min Dr. Rick Gaffney Work Phone: [facility] 12-29-2023 09:39-0500 SaO2% (BldA) [Mass fraction] 97 % Dr. Rick Gaffney Work Phone: [facility] 12-29-2023 09:39-0500 Systolic blood pressure 154 mm[Hg] Dr. Rick Gaffney Work Phone: [facility] 07-11-2023 15:39-0400 Diastolic blood pressure 82 mm[Hg] Dr. Rick Gaffney Work Phone: [facility] 07-11-2023 15:39-0400 Systolic blood pressure 148 mm[Hg] Dr. Rick Gaffney Work Phone: [facility] 07-11-2023 15:28-0400 Body height 175.[address] Rick Gaffney Work Phone: [facility] 07-11-2023 15:28-0400 Body mass index (BMI) [Ratio] 21.9 kg/m2 Dr. Rick Gaffney Work Phone: [facility] 07-11-2023 15:28-0400 Body weight 67.[address] Rick Gaffney Work Phone: [facility] 07-11-2023 15:28-0400 Heart rate 76 /min Dr. Rick Gaffney Work Phone: [facility] 07-11-2023 15:28-0400 Respiratory rate 20 /min Dr. Rick Gaffney Work Phone: [facility] 07-16-2022 15:58-0400 Body height 175.[address] Rick Gaffney Work Phone: [facility] Work Phone: 07-16-2022 15:58-0400 Body mass index (BMI) [Ratio] 22.4 kg/m2 Dr. Rick Gaffney Work Phone: [facility] Work Phone: 07-16-2022 15:58-0400 Body weight 69.[address] Rick Gaffney Work Phone: [facility] Work Phone: 07-16-2022 15:58-0400 Diastolic blood pressure 72 mm[Hg] Dr. Rick Gaffney Work Phone: [facility] Work Phone: 07-16-2022 15:58-0400 Heart rate 72 /min Dr. Rick Gaffney Work Phone: [facility] Work Phone: 07-16-2022 15:58-0400 Respiratory rate 16 /min Dr. Rick Gaffney Work Phone: [facility] Work Phone: 07-16-2022 15:58-0400 Systolic blood pressure 142 mm[Hg] Dr. Rick Gaffney Work Phone: [facility] Work Phone: 05-17-2017 13:03-0400 BMI (Body Mass Index) 22.01 kg/m2 Tyler Johnston [facility] Work Phone: 05-17-2017 13:03-0400 BP Diastolic 74 mm[Hg] Tyler Johnston [facility] Work Phone: 05-17-2017 13:03-0400 BP Systolic 102 mm[Hg] Tyler Johnston [facility] Work Phone: 05-17-2017 13:03-0400 Height 177.8 cm Tyler Johnston [facility] Work Phone: 05-17-2017 13:03-0400 Pulse (Heart Rate) 66 /min Tyler Johnston [facility] Work Phone: 05-17-2017 13:03-0400 Respiratory Rate 20 /min Tyler Johnston [facility] Work Phone: 05-17-2017 13:03-0400 Weight 69.58 kg Tyler Johnston [facility] Work Phone: 11-16-2016 13:22-0500 Heart rate 64 /min Harethel Medeiros [facility] Work Phone: 11-16-2016 13:06-0500 BMI (Body Mass Index) 22.22 kg/m2 Kurt Quintero NP [facility] Work Phone: 11-16-2016 13:06-0500 BP Diastolic 70 mm[Hg] Kurt Quintero NP [facility] Work Phone: 11-16-2016 13:06-0500 BP Systolic 120 mm[Hg] Kurt Quintero NP [facility] Work Phone: 11-16-2016 13:06-0500 BSA (Body Surface Area) 1.87 m2 Kurt Quintero [employer] [facility] Work Phone: 11-16-2016 13:06-0500 Pulse (Heart Rate) 72 /min Kurt Quintero [employer] [facility] Work Phone: 11-16-2016 13:06-0500 Respiratory Rate 12 /min Kurt Quintero NP [facility] Work Phone: 11-16-2016 13:06-0500 Weight 70.26 kg Kurt Quintero NP [facility] Work Phone: 05-17-2016 11:04-0400 Body Temperature 98.1 [degF] Kurt Quintero [employer] [facility] Work Phone: 09-16-2015 12:06-0500 Height 177.8 cm Kurt Leon [employer] [facility] Work Phone: 04-29-2013 13:52-0400 Heart rate 391 ms Valerie Medeiros [facility] Work Phone: Encounters Encounter Date Encounter Type Care Provider Facility Start: 09-21-2025 ambulatory [facility] Facility:[facility] Start: 08-31-2025 End: 08-31-2025 ambulatory [facility] Facility:[facility] [place] Start: 08-31-2025 End: 08-31-2025 ambulatory [facility] Facility:[facility] Start: 08-25-2025 End: 08-25-2025 ambulatory Karla Duffyell Facility:[facility] Start: 08-10-2025 In-person encounter [facility] Work Phone: Start: 08-10-2025 Visit out of hours Jany rendon MD Work Phone: [facility] Work Phone: Start: 06-03-2025 Visit out of hours Therese lemus PA-C Work Phone: [facility] Work Phone: Start: 06-02-2025 In-person encounter Therese wooten PA-C Work Phone: [facility] Work Phone: Start: 05-21-2025 End: 05-21-2025 Patient encounter procedure Rubio Grimes MD Work Phone: Kidney Medicine Comment on above: Hyponatremia (Primar y Dx); SIADH (syndrome of inappropriate ADH production) (HCC); Essential hypertension Start: 05-21-2025 End: 05-21-2025 ambulatory RUBIO GRIMES Facility:[facility] Start: 05-13-2025 End: 07-13-2025 Follow-up encounter Iona Kyle KAY Work Phone: Kidney Medicine Start: 05-13-2025 Encounter for genera l adult medical examination without abnormal findings Jeferson Thomas [facility] Start: 05-13-2025 End: 05-13-2025 ambulatory JEFERSON THOMAS Facility:[facility] Start: 05-09-2025 End: 05-09-[address] Jeferson Thomas MD Work Phone: -Laboratory Start: 05-09-2025 End: 05-09-[address] Jeferson Thomas MD -Laboratory Work Phone: Start: 05-09-2025 End: 05-09-2025 ambulatory Jeferson Thomas Facility:[facility] Start: 03-30-2025 End: 03-30-2025 Telephone encounter Ramon Samuel MD Work Phone: Pulmonary Medicine Comment on above: Results Start: 03-25-2025 End: 03-25-[address] Jeferson Thomas MD Work Phone: [facility] Work Phone: Start: 03-25-2025 End: 03-25-[address] Jeferson Thomas MD -[facility] Work Phone: Start: 03-25-2025 End: 03-25-2025 ambulatory Jeferson Thomas Facility:[facility] Start: 03-17-2025 ambulatory Jeferson Thomas Facility:[facility] Start: 03-17-2025 Non-patient / Non-visit Dr. Brice RODRIGUEZ -[facility] Start: 03-17-2025 End: 03-17-[address] Jeferson Thomas MD Work Phone: [facility] Work Phone: Start: 03-17-2025 End: 03-17-2025 Patient encounter procedure Karla Boyer PA -Cardiovascular Services Work Phone: Start: 03-17-2025 End: 03-17-2025 ambulatory Jeferson Thomas Facility:[facility] Start: 03-02-2025 End: 03-02-2025 Patient encounter procedure Karla VALENZUELA -[facility] Work Phone: Start: 03-02-2025 End: 03-02-2025 ambulatory Jeferson Thomas Facility:[facility] Start: 02-23-2025 End: 02-23-[address] Ángel Nichole MD -[facility] Start: 02-23-2025 End: 02-23-2025 ambulatory Jeferson Thomas Facility:[facility] Start: 02-19-2025 End: 02-19-[address] Jeferson Thomas MD -Laboratory Work Phone: Start: 02-19-2025 End: 02-19-2025 ambulatory Jeferson Thomas Facility:[facility] Start: 02-10-2025 End: 04-12-2025 Follow-up encounter Rubio Grimes MD Work Phone: Kidney Medicine Start: 02-10-2025 End: 02-10-2025 ambulatory JEFERSON THOMAS Facility:[facility] Start: 12-31-2024 End: 12-31-[address] Jeferson Thomas MD Work Phone: [facility] Work Phone: Start: 12-31-2024 End: 12-31-[address] Jeferson Thomas MD -Laboratory Work Phone: Start: 12-31-2024 End: 12-31-2024 ambulatory Jeferson Thomas Facility:[facility] Start: 12-14-2024 End: 12-14-[address] Jeferson Thomas MD -Laboratory Work Phone: Start: 12-14-2024 End: 12-14-2024 ambulatory Jeferson Thomas Facility:[facility] Start: 12-11-2024 End: 12-11-[address] Jeferson Thomas MD -Laboratory Work Phone: Start: 12-11-2024 End: 12-11-2024 ambulatory Jeferson Thomas Facility:[facility] Start: 11-18-2024 End: 11-18-2024 ambulatory RUBIO SYDNEY Facility:[facility] Start: 11-18-2024 End: 11-18-2024 Patient encounter procedure Rubio Grimes MD Work Phone: Kidney Medicine Comment on above: Hyponatremia (Primar y Dx); SIADH (syndrome of inappropriate ADH production) (HCC); Essential hypertension Start: 11-10-2024 End: 11-10-2024 ambulatory RUBIO GRIMES Facility:[facility] Start: 11-06-2024 ambulatory Jefersonjohnathon Gutierresrosalinda Facility:[facility] Start: 11-06-2024 Non-patient / Non-visit Dr. Damon gonzalez MD -[facility] Start: 11-06-2024 End: 11-06-2024 Patient encounter procedure Jodee VALENZUELA -Cardiovascular Services Work Phone: Start: 11-06-2024 End: 11-06-2024 [facility] Start: 10-08-2024 End: 10-08-2024 Patient encounter procedure Jodee VALENZUELA -[facility] Work Phone: Start: 10-08-2024 End: 10-08-2024 ambulatory Jefersonjohnathon Gutierresruth Facility:[facility] [place] Start: 09-21-2024 ambulatory Jeferson Bhavikruth Facility:[facility] Start: 09-02-2024 End: 09-02-2024 Telephone encounter Ramon Samuel MD Work Phone: Pulmonary Medicine Start: 09-01-2024 End: 09-01-2024 Telephone encounter Ramon Samuel MD Work Phone: Pulmonary Medicine Comment on above: Patient Update Start: 08-28-2024 End: 08-28-2024 Telephone encounter Hair Adames APRN.PLATING INSPECTOR Work Phone: Internal Medicine [place] Comment on above: ct questions Start: 08-13-2024 End: 08-13-2024 ambulatory HAIR ADAMES Facility:[facility] Start: 08-13-2024 End: 08-13-2024 Patient encounter procedure Hair Adames APRN.PLATING INSPECTOR Work Phone: Kidney Medicine Comment on above: Hyponatremia (Primar y Dx); SIADH (syndrome of inappropriate ADH production) (HCC); Essential hypertension; Other hyperlipidemia; Pleural thickening Start: 08-12-2024 End: 08-12-2024 ambulatory RUBIO GRIMES Facility:[facility] Start: 08-06-2024 End: 08-06-2024 Telephone encounter Rubio Grimes MD Work Phone: Kidney Medicine Start: 08-06-2024 End: 08-06-2024 ambulatory RUBIO GRIMES Facility:[facility] Start: 05-21-2024 End: 05-21-2024 Patient encounter procedure Hair Adames APRN.PLATING INSPECTOR Work Phone: Kidney Medicine Comment on above: Hyponatremia (Primar y Dx); SIADH (syndrome of inappropriate ADH production) (HCC); Essential hypertension; Other hyperlipidemia; Pleural plaque Start: 04-07-2024 End: 04-07-2024 ambulatory Pulm Lab [facility] Work Phone: PULM LAB [facility] Comment on above: Spirometry Start: 04-07-2024 End: 04-07-2024 Patient encounter procedure [facility] Work Phone: [facility] Start: 04-03-2024 ambulatory Rubio Grimes MD [...] 03-13-2024 Subsequent hospital visit by physician [facility] ([facility]) Work Phone: Cat Scan Comment on above: Pleural effusion [J9 0] Start: 02-20-2024 Telephone encounter Rubio Malin i, MD Work Phone: Internal Medicine [place] Start: 02-19-2024 End: 02-19-2024 Subsequent hospital visit by physician [facility] Work Phone: Radiology Comment on above: Hyponatremia [E87.1] Start: 02-19-2024 End: 02-19-2024 Patient encounter procedure Rubio Grimes MD Work Phone: Kidney Medicine Comment on above: 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 Rick Gaffney Work Phone: [facility] Work Phone: Start: 01-31-2024 End: 01-31-[address] Rick Gaffney Work Phone: [facility]-Laboratory Work Phone: Start: 01-10-2024 End: 01-10-[address] Rick Gaffney Work Phone: [facility] Work Phone: Start: 01-10-2024 End: 01-10-[address] Rick Gaffney Work Phone: [facility]-Laboratory, Phy Office 3rd Flr Start: 01-03-2024 Non-patient / Non-visit Dr. Jj Gaffney Work Phone: [facility] Work Phone: Start: 01-02-2024 Non-patient / Non-visit Dr. Jj Gaffney Work Phone: [facility] Work Phone: Start: 01-01-2024 End: 01-03-2024 Evaluation and management of inpatient Dr. Rick Gaffney Work Phone: [facility]-Progressive Care Unit Work Phone: Start: 01-01-2024 Non-patient / Non-visit Dr. Jj Gaffney Work Phone: [facility] Work Phone: Start: 12-29-2023 End: 12-29-[address] Rick Gaffney Work Phone: [facility] Work Phone: Start: 10-09-2023 End: 10-09-[address] Rick Gaffney Work Phone: [facility] Work Phone: Start: 10-09-2023 End: 10-09-[address] Rick Gaffney Work Phone: [facility]-Laboratory Work Phone: Start: 10-04-2023 End: 10-04-[address] Rick Gaffney Work Phone: [facility] Work Phone: Start: 10-04-2023 End: 10-04-[address] [facility] Start: 07-11-2023 End: 07-11-[address] Rick Gaffney Work Phone: [facility] Work Phone: Start: 06-10-2023 End: 06-10-2023 ambulatory [facility] Work Phone: Start: 06-10-2023 End: 06-10-2023 [facility] Start: 03-04-2023 End: 03-04-2023 ambulatory [facility] Work Phone: Start: 03-04-2023 End: 03-04-2023 Patient encounter procedure [facility] Office 3rd Flr Start: 11-07-2022 End: 11-07-[address] Rick Gaffney Work Phone: [facility] Work Phone: Start: 11-07-2022 End: 11-07-[address] Rick Gaffney Work Phone: [facility], y Office 3rd Flr Start: 07-16-2022 End: 07-16-[address] Rick Gaffney Work Phone: [facility] Start: 07-09-2022 End: 07-09-2022 ambulatory [facility] Work Phone: Start: 07-09-2022 End: 07-09-2022 Patient encounter procedure [facility] Start: 02-13-2022 End: 02-13-[address] Rick Gaffney Work Phone: [facility] Start: 11-16-2021 End: 11-16-[address] Rick Gaffney Work Phone: [facility]-Laboratory, y Office 3rd Flr Start: 11-02-2021 End: 11-02-[address] Rick Gaffney Work Phone: [facility]-Laboratory, y Office 3rd Flr Start: 10-26-[address] Rick [facility]aff[facility] Office 3rd Flr Start: 10-25-2021 End: 10-25-[address] Rick Gaffney Work Phone: [facility]-Laboratory, Specimen Start: 10-25-2021 End: 10-25-[address] Rick Gaffney Work Phone: [facility] Procedures Date Procedure Procedure Detail Performing Clinician Start: 08-10-2025 Blood pressure withi n normal parameters - no follow-up required Jany Blanco MD Work Phone: Start: 08-10-2025 Current tobacco [...] normal parameters - no follow-up required Therese Carter PA-C Work Phone: Start: 06-03-2025 BMI documented withi n normal parameters - no follow-up plan is required Therese [employer] PA-C Work Phone: Start: 06-03-2025 Current tobacco non- user cad cap copd pv dm Therese [employer] PA-C Work Phone: Start: 06-03-2025 Osteoarthritis symptoms&funcjal status asses Therese [employer] PA-C Work Phone: Start: 06-03-2025 Documentation of cur rent medications Therese [employer] PA-C Work Phone: Start: 06-03-2025 Pain assessment documented as negative - follow-up not required Therese [employer] PA-C Work Phone: Start: 06-03-2025 HFO CUSTOM STATIC Therese [employer] PA-C Work Phone: Start: 06-03-2025 Occupational therapy Capri [employer] PA-C Work Phone: Start: 06-03-2025 WHFO CUSTOM STATIC Jennifer [employer] PA-C Work Phone: Start: 03-25-2025 CT of [...] End: 04-19-2016 *CHLGC - Chlamydia/GC DNA Probe [id number] Rick A Yeimy DO Work Phone: Start: 04-19-2016 End: 04-19-2016 *BONITA - Fungus, BONITA Prep Rick A Yeimy DO Work Phone: Start: 04-19-2016 End: 04-27-2016 Urinalysis complete panel - Urine Rick A Yeimy DO Work Phone: Start: 04-19-2016 End: 04-19-2016 Urnls dip stick/tablet rgnt non-auto w/o micrscp Rick A Yeimy DO Work Phone: Start: 04-19-2016 End: 04-19-2016 Urinalysis Valerie Medeiros Start: 04-19-2016 End: 04-19-2016 *CHLGC - Chlamydia/GC DNA Probe [id number] Rick A Yeimy DO Work Phone: Start: 04-19-2016 End: 04-19-2016 *BONITA - Fungus, BONITA Prep Rick Petersen[employer]porter Work Phone: Start: 04-19-2016 End: 04-27-2016 Urinalysis complete panel - Urine Rick [employer] Phone: Start: 04-19-2016 End: 04-19-2016 Urinalysis nonauto w/o scope Rick PetersenRawporter Work Phone: Start: 04-02-2016 End: 04-27-2016 *CMP Complete Metabolic Panel Rick PeterseniCurrent Phone: Start: 04-02-2016 End: 04-27-2016 Lipid 1996 panel - Serum or Plasma Rick PeterseniCurrent Phone: Start: 04-02-2016 End: 04-27-2016 *CMP Complete Metabolic Panel Rick Diego [employer] Phone: Start: 04-02-2016 End: 04-27-2016 Lipid panel [AGGREGATE] Rick PeterseniCurrent Phone: Start: 09-16-2015 End: 09-16-2015 Follow Up Appt 6 months Jacques Blair MD Start: 09-16-2015 End: 09-16-2015 PFM Jacques Blair MD Start: 09-16-2015 End: 09-16-2015 Follow Up Appt 6 months Jacques Blair MD Start: 09-16-2015 End: 09-16-2015 PFM Jacques Blair MD Start: 04-05-2015 Colonoscopy Rubio Malin i, MD Work Phone: Start: [...] and SVG to DX, SVG to [facility] per Dr. Hernandez Plan of Treatment Date Care Activity Detail Author Start: 02-18-2027 Diabetes Screening Diabetes Screenin g [facility] Start: 08-10-2025 End: 08-10-2025 [employer] Work Phone: Start: 06-28-2025 Influenza vaccination [facility] Start: 05-21-2025 End: 05-21-2025 Patient encounter procedure 05/21/2025 9:00 AM EDT Office Visit Kidney Medicine [address] [place] [address] [place] [address] [place] [address] SIADH FOLLOW UP Kidney Medicine Comment on above: SIADH FOLLOW UP Start: 04-05-2025 Screening for malign ant neoplasm of colon [facility] Start: 03-30-2025 End: 04-29-2025 CT Chest WO contrast CT CHEST WO IVCON Radiology Routine Interstitial pulmonary disease (HCC) Expected: 03/30/2025, Expires: 04/29/2025 [facility] Comment on above: Expected: 03/30/2025 , Expires: 04/29/2025 Start: 11-18-2024 End: 11-18-2024 Patient encounter procedure 11/18/2024 9:00 AM EST Office Visit Kidney Medicine [address] [place] [address] [place] [address] [place] [address] Grimes Kidney Medicine Comment on above: [address] Christian taylor Start: 10-28-2024 Advance Directive Discussion Advance Directive Discussion [facility] Start: 08-13-2024 End: 08-13-2024 Patient encounter procedure 08/13/2024 9:00 AM EDT Office Visit Kidney Medicine [address] [place] [address] Hair Adames, PEYTON.PLATING INSPECTOR [address] [place] [address] Follow-up disposition: Return in about 3 months (around 08/21/2024) for with Dr Grimes. Kidney Medicine Comment on above: Follow-up dispositio n: Return in about 3 months (around 08/21/2024) for with Dr Grimes. Start: 08-06-2024 End: 11-05-2024 Renal function 2000 panel - Serum or Plasma RENAL FUNCTION PANEL Lab Routine SIADH (syndrome of inappropriate ADH production) ([facility]) Expected: 08/06/2024, Expires: 11/05/2024 [facility] Work Phone: Comment on above: Expected: 08/06/2024 , Expires: 11/05/2024 Start: 06-28-2024 Covid-19 Vaccine ( season) Covid-19 Vaccine ( season) [facility] Start: 06-28-2024 Covid-19 Vaccine ( season) Covid-19 Vaccine ( season) [facility] Start: 06-28-2024 Influenza vaccination [facility] Start: 05-21-2024 End: 05-21-2024 Patient encounter procedure Kidney Medicine Comment on above: 3 month follow up; S IADH Start: 04-07-2024 End: 04-07-2024 ambulatory PULM LAB [facility] Comment on above: Pleural plaque [J92. 9] Start: 04-03-2024 End: 07-03-2024 Renal function 2000 panel - Serum or Plasma RENAL FUNCTION PANEL Lab Routine Hyponatremia Expected: 04/03/2024, Expires: 07/03/2024 [facility] Work Phone: Comment on above: Expected: 04/03/2024 , Expires: 07/03/2024 Start: 03-30-2024 End: 03-30-2024 Patient encounter procedure 03/30/2024 12:15 PM EDT Office Visit Pulmonary Medicine [address] [address] Ramon Samuel MD [address] [place] [address] CONSULT TO PULM/CRITICAL CARE Pulmonary Medicine Comment on above: CONSULT TO PULM/CRIT ICAL CARE Start: 2024 Advance Directive Discussion Advance Directive Discussion [facility] Start: 02-26-2024 Medicare Annual Well ness Visit Medicare Annual Wellness Visit [facility] Start: 02-19-2024 End: 05-20-2024 Cortisol [Mass/volume] in Serum or Plasma [facility] Comment on above: Expected: 02/19/2024 , Expires: 05/20/2024 Start: 02-19-2024 End: 05-20-2024 Osmolality of Serum or Plasma [facility] [email or web address] Work Phone: Comment on above: Expected: 02/19/2024 , Expires: 05/20/2024 Start: 02-19-2024 End: 05-20-2024 Sodium [Moles/volume] in Urine collected for unspecified duration [facility] Comment on above: Expected: 02/19/2024 , Expires: 05/20/2024 Start: 02-19-2024 End: 05-20-2024 Thyrotropin [Units/volume] in Serum or Plasma [facility] Comment on above: Expected: 02/19/2024 , Expires: 05/20/2024 Start: 01-03-2024 Patient discharge [facility] Start: 01-02-2024 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 converter 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 [facility] [facility] Start: 01-01-2024 Respiratory secretio n precautions [facility] Start: 01-01-2024 Following clinical pathway protocol [facility] Start: 01-01-2024 Assessment of risk o f venous thromboembolism [facility] Start: 01-01-2024 Catheterization of vein [facility] Start: 01-01-2024 Inhalation therapy procedure [facility] Start: 01-01-2024 Insertion of cathete r into peripheral vein [facility] Start: 01-01-2024 Measuring intake and output [facility] Start: 01-01-2024 Oxygen therapy [facility] Start: 01-01-2024 Providing care accor ding to standard [facility] Start: 01-01-2024 Referral to service [facility] Start: 01-01-2024 [facility] Start: 01-01-2024 Blood chemistry [facility] Start: 01-01-2024 Verification routine [facility] Start: 01-01-2024 Admission procedure [facility] Start: 01-01-2024 Hospital admission, emergency, from emergency room, medical nature [facility] Start: 01-01-2024 Patient referral to dietitian [facility] Start: 01-01-2024 [facility] Start: 10-28-2023 Behavioral Health Screening Behavioral Health Screening [facility] Start: 06-28-2023 Covid-19 Vaccine ( season) Covid-19 Vaccine ( season) [facility] Start: 06-28-2023 Covid-19 Vaccine ( season) Covid-19 Vaccine ( season) [facility] Start: 11-16-2021 Lipid panel Lipid Screening [facility] Start: 2019 RSV Vaccine (1 - 1-d ose 60+ series) RSV Vaccine (1 - 1-dose 60+ series) [facility] Start: 2019 RSV Vaccine (1 - Ris k 60-74 years 1-dose series) RSV Vaccine (1 - Risk 60-74 years 1-dose series) [facility] Start: 12-02-2017 End: 12-02-2017 Appointment Appointment [facility] Work Phone: Start: 11-16-2017 Hepatitis B surface antibody level LDL Cholesterol [facility] Start: 11-04-2017 End: 05-15-2017 *Hepatic Function Panel *Hepatic Function Panel [facility] Work Phone: Start: 11-04-2017 End: 05-15-2017 Lipid panel [AGGREGATE] *Lipid Profile CC PCP [facility] Work Phone: Start: 11-04-2017 End: 05-15-2017 *Hepatic Function Panel *Hepatic Function Panel [facility] Work Phone: Start: 11-04-2017 End: 05-15-2017 Lipid panel [AGGREGATE] *Lipid Profile CC PCP [facility] Work Phone: Start: 05-17-2017 End: 05-17-2017 *Hepatic Function Panel *Hepatic Function Panel [facility] Work Phone: Start: 05-17-2017 End: 05-17-2017 Follow Up Appt 6 months Follow Up Appt 6 months [facility] Work Phone: Start: 05-17-2017 End: 05-17-2017 Lipid panel [AGGREGATE] *Lipid Profile CC PCP [facility] Work Phone: Start: 05-17-2017 End: 05-17-2017 PFM PFM [facility] Work Phone: Start: 05-17-2017 End: 05-17-2017 Appointment Appointment [facility] Work Phone: Start: 05-17-2017 End: 05-17-2017 *Hepatic Function Panel *Hepatic Function Panel [facility] Work Phone: Start: 05-17-2017 End: 05-17-2017 Follow Up Appt 6 months Follow Up Appt 6 months [facility] Work Phone: Start: 05-17-2017 End: 05-17-2017 Lipid 1996 panel *Lipid Profile CC PCP [facility] Work Phone: Start: 05-17-2017 [...] Phone: Start: 11-16-2016 End: 11-21-2016 PFM PFM [facility] Work Phone: Start: 11-16-2016 End: 05-03-2017 *Hepatic Function Panel *Hepatic Function Panel [facility] Work Phone: Start: 11-16-2016 End: 05-07-2017 Electrocardiogram, complete EKG (In office) [facility] Work Phone: Start: 11-16-2016 End: 11-21-2016 Follow Up Appt 6 months Follow Up Appt 6 months [facility] Work Phone: Start: 11-16-2016 End: 05-03-2017 Lipid panel [AGGREGATE] *Lipid Profile CC PCP [facility] Work Phone: Start: 11-16-2016 End: 11-21-2016 PFM PFM [facility] Work Phone: Start: 05-16-2016 End: 05-16-2016 Follow Up Appt 6 months Follow Up Appt 6 months [facility] Work Phone: Start: 05-16-2016 End: 05-16-2016 PFM PF [facility] Work Phone: Start: 05-16-2016 End: 05-16-2016 Follow Up Appt 6 months Follow Up Appt 6 months [facility] Work Phone: Start: 05-16-2016 End: 05-16-2016 PFM PFM [facility] Work Phone: Start: 04-19-2016 End: 04-19-2016 *CHLGC - Chlamydia/GC DNA Probe [id number] *CHLGC - Chlamydia/GC DNA Probe [id number] [facility] Work Phone: Start: 04-19-2016 End: 04-19-2016 *BONITA - Fungus, BONITA Prep *BONITA - Fungus, BONITA Prep [facility] Work Phone: Start: 04-19-2016 End: 04-19-2016 Urinalysis complete panel - Urine *UAC- Urinalysis, Complete w/ Micro [facility] Work Phone: Start: 04-19-2016 End: 04-19-2016 *CHLGC - Chlamydia/GC DNA Probe [id number] *CHLGC - Chlamydia/GC DNA Probe [id number] [facility] Work Phone: Start: 04-19-2016 End: 04-19-2016 *BONITA - Fungus, BONITA Prep *BONITA - Fungus, BONITA Prep [facility] Work Phone: Start: 04-19-2016 End: 04-19-2016 Urinalysis complete panel - Urine *UAC- Urinalysis, Complete w/ Micro [facility] Work Phone: Start: 04-02-2016 End: 04-19-2016 *CMP Complete Metabolic Panel *CMP Complete Metabolic Panel [facility] Work Phone: Start: 04-02-2016 End: 04-19-2016 Lipid panel [AGGREGATE] *Lipid Profile [facility] Work Phone: Start: 04-02-2016 End: 04-19-2016 *CMP Complete Metabolic Panel *CMP Complete Metabolic Panel [facility] Work Phone: Start: 04-02-2016 End: 04-19-2016 Lipid panel [AGGREGATE] *Lipid Profile [facility] Work Phone: Start: 09-16-2015 End: 09-16-2015 Follow Up Appt 6 months Follow Up Appt 6 months [facility] Work Phone: Start: 09-16-2015 End: 09-16-2015 PFM PFM [facility] Work Phone: Start: 09-16-2015 End: 09-16-2015 Follow Up Appt 6 months Follow Up Appt 6 months [facility] Work Phone: Start: 09-16-2015 End: 09-16-2015 PFM PFM [facility] Work Phone: Start: 01-07-2015 End: 01-07-2015 Follow Up Appt 6 months Follow Up Appt 6 months [facility] Work Phone: Start: 01-07-2015 End: 05-07-2017 Follow Up Appt Other Follow Up Appt Other [facility] Work Phone: Start: 01-07-2015 End: 01-07-2015 PFM PFM [facility] Work Phone: Start: 01-07-2015 End: 01-07-2015 Follow Up Appt 6 months Follow Up Appt 6 months [facility] Work Phone: Start: 01-07-2015 End: 05-07-2017 Follow Up Appt Other Follow Up Appt Other [facility] Work Phone: Start: 01-07-2015 End: 01-07-2015 PFM PFM [facility] Work Phone: Start: 06-30-2014 End: 06-30-2014 Follow Up Appt 6 months Follow Up Appt 6 months [facility] Work Phone: Start: 06-30-2014 End: 06-30-2014 PFM PFM [facility] Work Phone: Start: 06-30-2014 End: 06-30-2014 Follow Up Appt 6 months Follow Up Appt 6 months [facility] Work Phone: Start: 06-30-2014 End: 06-30-2014 PFM PFM [facility] Work Phone: Start: 2014 Prostate specific an tigen measurement Prostate Cancer Screening Discussion [facility] Start: 12-14-2013 End: 12-14-2013 Follow Up Appt 6 months Follow Up Appt 6 months [facility] Work Phone: Start: 12-14-2013 End: 06-30-2014 Follow Up Appt Other Follow Up Appt Other [facility] Work Phone: Start: 12-14-2013 End: 12-14-2013 PFM PFM [facility] Work Phone: Start: 12-14-2013 End: 12-14-2013 Follow Up Appt 6 months Follow Up Appt 6 months [facility] Work Phone: Start: 12-14-2013 End: 06-30-2014 Follow Up Appt Other Follow Up Appt Other [facility] Work Phone: Start: 12-14-2013 End: 12-14-2013 PFM PFM [facility] Work Phone: Start: 04-29-2013 End: 04-29-2013 Ecg routine ecg w/least 12 lds w/i&r EKG (In office) [facility] Work Phone: Start: 04-29-2013 End: 04-29-2013 Follow Up Appt 6 months Follow Up Appt 6 months [facility] Work Phone: Start: 04-29-2013 End: 05-07-2017 Follow Up Appt Other Follow Up Appt Other [facility] Work Phone: Start: 04-29-2013 End: 04-29-2013 PFM PFM [facility] Work Phone: Start: 04-29-2013 End: 04-29-2013 Electrocardiogram, complete EKG (In office) [facility] Work Phone: Start: 04-29-2013 End: 04-29-2013 Follow Up Appt 6 months Follow Up Appt 6 months [facility] Work Phone: Start: 04-29-2013 End: 05-07-2017 Follow Up Appt Other Follow Up Appt Other [facility] Work Phone: Start: 04-29-2013 End: 04-29-2013 PFM PFM [facility] Work Phone: Start: 01-26-2013 End: 02-15-2014 *Hepatic Function Panel *Hepatic Function Panel [facility] Work Phone: Start: 01-26-2013 End: 02-15-2014 Lipid panel [AGGREGATE] *Lipid Profile [facility] Work Phone: Start: 01-26-2013 [...] 6 months Follow Up Appt 6 months [facility] Work Phone: Start: 09-29-2012 End: 08-30-2015 Lipid panel [AGGREGATE] *Lipid Profile [facility] Work Phone: Start: 09-29-2012 End: 08-30-2015 *Hepatic Function Panel *Hepatic Function Panel [facility] Work Phone: Start: 09-29-2012 End: 05-07-2017 Follow Up Appt 6 months Follow Up Appt 6 months [facility] Work Phone: Start: 09-29-2012 End: 08-30-2015 Lipid panel [AGGREGATE] *Lipid Profile [facility] Work Phone: Start: 02-28-2012 End: 08-06-2012 *Hepatic Function Panel *Hepatic Function Panel [facility] Work Phone: Start: 02-28-2012 End: 02-28-2012 Ecg routine ecg w/least 12 lds w/i&r EKG (In office) [facility] Work Phone: Start: 02-28-2012 End: 09-29-2012 Follow Up Appt 6 months Follow Up Appt 6 months [facility] Work Phone: Start: 02-28-2012 End: 08-06-2012 Lipid panel [AGGREGATE] *Lipid Profile [facility] Work Phone: Start: 02-28-2012 End: 08-06-2012 *Hepatic Function Panel *Hepatic Function Panel [facility] Work Phone: Start: 02-28-2012 End: 02-28-2012 Electrocardiogram, complete EKG (In office) [facility] Work Phone: Start: 02-28-2012 End: 09-29-2012 Follow Up Appt 6 months Follow Up Appt 6 months [facility] Work Phone: Start: 02-28-2012 End: 08-06-2012 Lipid panel [AGGREGATE] *Lipid Profile [facility] Work Phone: Start: 2009 Shingrix Vaccine (1 of 2) Camargo grix Vaccine (1 of 2) [facility] Start: 2004 Prostate specific an tigen measurement Prostate Cancer Screening Discussion [facility] Start: 2004 Screening for malign ant neoplasm of colon [facility] Start: 1994 Lipid panel Lipid Screening [facility] Start: 1989 Zoledronic acid therapy Alpha- 1 Antitrypsin Deficiency Screening [facility] Start: 1978 Pneumococcal Vaccine : 50+ (1 of 2 - PCV) Pneumococcal Vaccine: 50+ (1 of 2 - PCV) [facility] Start: 1978 Urine microalbumin profile DTaP,Tdap,Td Vaccine (1 - Tdap) [facility] Start: 1977 Annual PCP Team [employer] adri Disease Visit Annual PCP Team Chronic Disease Visit [facility] Start: 1977 Anxiety Screening Anxiety Screening [facility] Start: 1977 BP Controlled (<130/80) BP Controlle d (<130/80) [facility] Start: 1977 Depression Screening Depression Scre ening [facility] Start: 1977 Hepatitis B surface antibody level LDL Cholesterol [facility] Start: 1977 Hepatitis C screening Hepatitis C Sc ananth [facility] Start: 1977 HIV screening HIV Screening [facility] Start: 1977 Spirometry Spirometry [facility] Start: 1965 Pneumococcal Vaccine : 65+ (1 of 2 - PCV) Pneumococcal Vaccine: 65+ (1 of 2 - PCV) [facility] Start: 1959 Abdominal aortic ane urysm screening Abdominal Aortic Aneurysm Screening [facility] Anion gap measurement [facility] BUN/Creatinine ratio [facility] Calcium [Mass/volume ] in Serum or Plasma [facility] Carbon dioxide, tota l [Moles/volume] in Serum or Plasma [facility] Chloride [Moles/volu me] in Serum or Plasma [facility] Creatinine [Moles/vo lume] in Serum or Plasma [facility] CT Chest W contrast IV CT CHEST W IVCON Radiology Routine Pleural effusion 03/13/2024 11:35 AM EDT [facility] Work Phone: Glucose [Mass/volume ] in Serum or Plasma [facility] End: 04-29-2025 LUNG DIFFUSION CAPACITY (DLCO) LUNG DIFFUSION CAPACITY (DLCO) PFT Routine Pleural plaque Centrilobular emphysema (HCC) 1 Occurrences starting 03/30/2024 until 04/29/2025 [facility] Comment on above: 1 Occurrences starti ng 03/30/2024 until 04/29/2025 End: 04-29-2025 LUNG VOLUMES LUNG VOLUMES PFT Routine Pleural plaque Centrilobular emphysema (HCC) 1 Occurrences starting 03/30/2024 until 04/29/2025 [facility] Comment on above: 1 Occurrences starti ng 03/30/2024 until 04/29/2025 Measurement of renal function [facility] Patient Education HYPERLIPIDEMIA [facility] Work Phone: Patient referral [facility] Work Phone: Potassium [Moles/vol ume] in Serum or Plasma [facility] End: 02-18-2025 Renal function 2000 panel - Serum or Plasma RENAL FUNCTION PANEL Lab Routine Hyponatremia Every 3 months for 8 Occurrences starting 02/19/2024 until 02/18/2025 [facility] Comment on above: Every 3 months for 8 Occurrences starting 02/19/2024 until 02/18/2025 End: 11-18-2025 Renal function 2000 panel - Serum or Plasma RENAL FUNCTION PANEL Lab Routine Hyponatremia Every 3 months for 8 Occurrences starting 11/18/2024 until 11/18/2025 [facility] Work Phone: Comment on above: Every 3 months for 8 Occurrences starting 11/18/2024 until 11/18/2025 End: 04-29-2025 SIX MINUTE WALK SIX MINUTE WALK PFT Routine Pleural plaque Centrilobular emphysema (HCC) 1 Occurrences starting 03/30/2024 until 04/29/2025 [facility] Comment on above: 1 Occurrences starti ng 03/30/2024 until 04/29/2025 Sodium [Moles/volume ] in Serum or Plasma [facility] End: 04-29-2025 SPIROMETRY WITH DILATOR IF OBSTRUCTED SPIROMETRY WITH DILATOR IF OBSTRUCTED PFT Routine Pleural plaque Centrilobular emphysema (HCC) 1 Occurrences starting 03/30/2024 until 04/29/2025 [facility] Work Phone: Comment on above: 1 Occurrences starti ng 03/30/2024 until 04/29/2025 Urea nitrogen [Mass/volume] in Serum or Plasma [facility] End: 03-20-2025 XR Chest PA and Lateral XR CHEST 2V FRONTAL/LAT Radiology Routine Hyponatremia SIADH (syndrome of inappropriate ADH production) (HCC) 1 Occurrences starting 02/19/2024 until 03/20/2025 [facility] Comment on above: 1 Occurrences starti ng 02/19/2024 until 03/20/2025 XR Chest PA and Lateral XR CHEST 2V FRONTAL/LAT Radiology Routine Hyponatremia SIADH (syndrome of inappropriate ADH production) (HCC) 02/19/2024 9:09 AM EDT [facility] Payers Date Payer Category Payer Self-pay [id number] 2024 Medicare MEDICARE [id number] 2021 Private Health Insurance MMO SUP ER[employer] PPO [id number] 2016 Unknown [id number] 2014 Unknown [id number] Private Health Insurance [id number] Unknown [id number] Unknown [id number] 462 Unknown [id number] 462 Unknown [id number]. 462 Unknown [id number]. 462 Unknown [id number]. 462 Unknown [id number]. 462 Unknown [id number]. 462 Unknown [id number]. 462 Unknown [id number] [id number]. 462 Unknown [id number]. 462 Unknown [id number]. 462 Unknown [id number]. 462 Unknown [id number]. 462 Unknown [id number]. 462 Unknown [id number] [id number]. 462 Unknown [id number]. 462 Unknown [id number]. 462 Unknown [id number]. 462 Social History Date Type Detail Facility Start: 10-02-2021 End: 01-01-2024 Tobacco smoking status TNIS Unknown if ever smoked [facility] Start: 11-02-2019 None [facility] Start: 11-02-2019 Spouse/ Signif icant Other [facility] Start: 1960 Sex Assigned At Male [facility] Start: 03-10-2015 End: 02-23-2025 Tobacco smoking status TNIS Ex-smoker [facility] History of tobacco use Current smoker [facility] Start: 02-19-2024 End: 04-07-2024 Alcohol intake Current non-drinker of alcohol (finding) [facility] Start: 02-19-2024 End: 03-30-2024 History of Social function [facility] Start: 02-19-2024 End: 08-10-2025 Tobacco use panel [facility] Start: 1960 Sex Assigned At Not on file [facility] Start: 09-28-2012 National Score (1-100), lower number is lower risk 69 [facility] Start: 01-13-2025 Sex Male (finding) [facility] Goals Date Patient Goal Desired Activity /State Functional Status Date Assessment Result Facility 01-02-2024 Functional status Activity Abili ty Independent [facility] Work Phone: 01-02-2024 Functional status Patient Activity Ambula emma [facility] Work Phone: 04-13-2015 Are you deaf, or do you have serious difficulty hearing No 04/13/2015 3:34 PM Hernán Ambrose [facility] 04-13-2015 Are you blind, or do you have serious difficulty seeing, even when wearing glasses No 04/13/2015 3:34 PM Hernán Ambrose [facility] 04-13-2015 Do you have serious difficulty walking or climbing stairs No 04/13/2015 3:34 PM Hernán Ambrose [facility] 04-13-2015 Do you have difficul ty dressing or bathing No 04/13/2015 3:34 PM Hernán Ambrose [facility] 04-13-2015 Because of a physica l, mental, or emotional condition, do you have difficulty doing errands alone such as visiting a physician's office or shopping No 04/13/2015 3:34 PM Hernán Ambrose [facility] Mental Status Date Assessment Result Facility 01-03-2024 Cognitive function Voice/Name [facility] Work Phone: 01-01-2024 Cognitive function Level Of Cons ciousness Awake;Alert;Appropriate;Fol lows Commands [facility] Work Phone: 04-13-2015 Because of a physica l, mental, or emotional condition, do you have serious difficulty concentrating, remembering, or making decisions No 04/13/2015 3:34 PM EDT Hernán Rhodes Kiara [facility] Clinical Notes 12-26-2009 to 05-21-2025 Patient [...] your care plan. documented in this encounter [facility] 05-21-2025 History of Presen t illness Narrative [facility] NEPHROLOGY & HYPERTENSION [facility] SERVICE DATE: 05/21/2025 [...] 11/18/2024: Last seen by me. Was taking [id number] sodium chloride pills. Offered to increase the dose of Atenolol to 50 mg daily; he wants to discuss with the Pharmacist Apprentice. 05/20/2025 Jorge A reports a history of hyponatremia for at least 5 years, with sodium levels typically in the 130s. 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 He restricts his fluid intake to 48-60 oz daily. He notes that his sodium levels tend to drop when he is ill, leading to symptoms such as fatigue, anorexia, and weight loss. He recalls a recent episode of a cough, pharyngitis, and a cold a few weeks ago, which preceded a drop in sodium levels to 131 mEq/L. 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 He underwent a CT scan of the lungs about 2 months ago, with results pending review by his paint department supervisor. PAST MEDICAL HISTORY: ACTIVE PROBLEM LIST Screening [...] Take 81 mg by mouth once daily. [place]-3 Fatty Acids-Vitamin E (FISH OIL) 1,000 mg [...] C (97.6 F) Ht 173 cm (5' 8.11) Wt 67.1 kg (147 lb 14.9 oz) [...] for today's visit: No results for input(s): NA, K, CHLOR, CO2, BUN, CREAT, GLUC, ANION, CA, P, MG in the last 168 hours. Recent Labs [...] oz a day Continue follow-up with your paint department supervisor. Renal panel every 3 months Follow-up in 9 months. I spent a total of 31 minutes on the date of the service which included preparing to see the patient, [id number] patient care, completing clinical documentation, obtaining and/or reviewing separately obtained history, performing a medically appropriate examination, counseling and educating the patient/family/caregiver, and ordering medications, tests, or procedures. Patient will need a intermediate manager follow-up in renal clinic. SIGNATURE: Rubio Grimes MD, FACP, FASKenn PATIENT NAME: Jorge A Rivera CC: PRIMARY CARE PHYSICIAN: Jeferson Thomas MD documented in this encounter [facility] 05-21-2025 Note HNO ID: [id number] Author: RUBIO GRIMES MD Service: ? Author Type: Physician Type: Progress Notes Filed: 05/21/2025 10:00 Note Text: [facility] NEPHROLOGY AND HYPERTENSION [facility] SERVICE DATE: 05/21/2025 [...] 11/18/2024: Last seen by me. Was taking [id number] sodium chloride pills. Offered to increase the dose of Atenolol to 50 mg daily; he wants to discuss with the Pharmacist Apprentice. 05/20/2025 Jorge A reports a history of hyponatremia for at least 5 years, with sodium levels typically in the 130s. 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 He restricts his fluid intake to 48-60 oz daily. He notes that his sodium levels tend to drop when he is ill, leading to symptoms such as fatigue, anorexia, and weight loss. He recalls a recent episode of a cough, pharyngitis, and a cold a few weeks ago, which preceded a drop in sodium levels to 131 mEq/L. 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 He underwent a CT scan of the lungs about 2 months ago, with results pending review by his paint department supervisor. PAST MEDICAL HISTORY: ACTIVE PROBLEM LIST Screening [...] Take 81 mg by mouth once daily. [place]-3 Fatty Acids-Vitamin E (FISH OIL) 1,000 mg [...] ?C (97.6 ?F) Ht 173 cm (5' 8.11) Wt 67.1 kg (147 lb 14.9 oz) [...] Respiratory: Clear b (more content not included)... [facility] 03-30-2025 Telephone encounter Note Fax received from [facility] for LCS Dr. Thomas CT Chest Lung LCS. Placed in Dr. Samuel's office to be viewed. [facility] 03-30-2025 Miscellaneous Notes Fax received from [facility] for LCS Dr. Thomas CT Chest Lung LCS. Placed in Dr. Samuel's office to be viewed. documented in this encounter [facility] 2025 Radiology Diagnostic study note [facility] Imaging Services [address] [place] [id number] Lung Screening MR#: [id number] Acct: [id number] Name: JORGE A RIVERA Rep #: [id number] : 1960 M 64 From: Ruma Centeno MD PCP: Dr. Jeferson Thomas MD Status: BRUNILDA MARY Study:Low Dose CT Lung Screening Date of Exam : 03/25/25 Exam# [id number] Ordering Dr: Jeferson Thomas MD EXAM: CT [...] in 12 months is recommended. Reading Location: [facility] CC: Dr. Jeferson Thomas MD ~ Software Developer Intern: Signed [facility] 11-18-2024 Instructions Rubio Grimes MD - 11/18/2024 9:22 AM EST Continue with Fluid restriction at <48 oz a day Labs every 3 months. documented in this encounter [facility] 11-18-2024 History of Presen t illness Narrative [facility] NEPHROLOGY & HYPERTENSION [facility] SERVICE DATE: 11/18/2024 [...] Cancer Siadh (Syndrome of Inappropriate Adh Production) ([facility]) Hyponatremia Essential Hypertension Acute Bronchospasm Carotid Bruit [...] Take 81 mg by mouth once daily. [place]-3 Fatty Acids-Vitamin E (FISH OIL) 1,000 mg [...] daily; he wants to discuss with the Pharmacist Apprentice. Advised to make sure the kwan-gbf-sjxtset pill that he is taking is sodium chloride 1 g pills. If not, please let us know. Continue with Fluid restriction at <48 oz a day Renal panel every 3 months Follow-up in 9 months. I spent a total of 31 minutes on the date of the service which included preparing to see the patient, kffa-oo-qofb patient care, completing clinical documentation, obtaining and/or reviewing separately obtained history, performing a medically appropriate examination, counseling and educating the patient/family/caregiver, and ordering medications, tests, or procedures. Patient will need a intermediate manager follow-up in renal clinic. SIGNATURE: Rubio Grimes MD, FACP, FASKenn PATIENT NAME: Jorge A Rivera CC: PRIMARY CARE PHYSICIAN: Jeferson Thomas MD documented in this encounter [facility] 11-18-2024 Note HNO ID: [id number] Author: RUBIO GRIMES MD Service: ? Author Type: Physician Type: Progress Notes Filed: 11/18/2024 09:26 Note Text: [facility] NEPHROLOGY AND HYPERTENSION [facility] SERVICE DATE: 11/18/2024 [...] Cancer Siadh (Syndrome of Inappropriate Adh Production) ([facility]) Hyponatremia Essential Hypertension Acute Bronchospasm Carotid Bruit [...] Take 81 mg by mouth once daily. [place]-3 Fatty Acids-Vitamin E (FISH OIL) 1,000 mg [...] Extensive emphysema a (more content not included)... [facility] 10-08-2024 Evaluation note Diagnosis Onset Date Resolution Peripheral vascular disease noneactive October 08 024 9:18am [facility] Work Phone: 1(777) 271-624211-06-2024 Telephone encounter Note* Telephone Encounter - Ramon [...] bases are clear. No significant pericardial effusion [facility] Work Phone: 1(935) 876-850611-06-2024 Miscellaneous Notes* Telephone Encounter - Ramon Samuel [...] No significant pericardial effusion documented in this encounterOur [facility] Telephone encounter Note * Telephone Encounter - Maida Phillips MA - 09/01/2024 8:[address] of Abdomen/Pelvis with Contrast and Cardiometabolic report received from [facility] Placed in Dr. Samuel's office to view. [facility]11-05-2024 Miscellaneous Notes* Telephone Encounter - Maida Phillips MA - 09/01/2024 8:[address] of Abdomen/Pelvis with Contrast and Cardiometabolic report received from [facility] Placed in Dr. Samuel's office to view. documented in this encounterOur [facility]11-01-2024 Telephone encounter Note * Telephone Encounter - Mercy Worthy RN - 08/28/2024 4:00 PM EDT Faxed to Dr. Thomas's office per request [facility]11-01-2024 Miscellaneous Notes* Telephone Encounter - Mercy Dallas RN - 08/28/2024 4:00 PM EDT Faxed to Dr. Thomas's office per request * Telephone Encounter - Hair Adames APRN.PLATING INSPECTOR - 08/28/2024 3:49 PM EDT He may [...] you may also fax to them at [phone]. documented in this encounterOur [facility]11-[facility]-2024 Telephone encounter Note * Telephone Encounter - Hair Adames APRN.NEAL - 08/28/2024 3:49 PM EDT He may have CT without renal concern or need for special hydration [facility] Work Phone: 1(596) 724-876811-01-2024 Telephone encounter Note* Telephone Encounter - Mercy Worthy RN - 08/28/2024 3:48 PM EDT Routing to Hair Adames to advise. [facility]11-01-2024 Telephone encounter Note* Telephone Encounter - Ivory Hunter - 08/28/2024 3:[address] Fong office needing to know if the Patient can have a CT with contrast please advise! If they dont answer you may also fax to them at [phone]. [facility]10-17-2024 Instructions* Patient Instructions* Hair Adames, ACCOUNTS PAYABLE TECHNICIAN.PLATING INSPECTOR - 08/13/2024 9:26 AM EDT PLAN: -Please [...] follow up as scheduled with Dr Sydney Whiteuary Please bring a complete list of your [...] improve our service to you by calling [phone] You may be receiving a survey regarding your care today. If you do, please take a few minutes to fill it out and send it back. It would be greatly appreciated. 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 [place]-3 Fatty Acids-Vitamin E (FISH OIL) 1,000 mg [...] CT scan -hx asbestos exposure as commercial banker -following with pulmonology Metabolic/electrolytes: K+- 4.1 wnl [...] up as scheduled with Dr Sydney Adames CNP I spent a total of 35 minutes on the date of the service which included preparing to see the patient, gsst-sf-dgjl patient care, completing clinical documentation, performing a medically appropriate examination, counseling and educating the patient/family/caregiver and ordering medications, tests, or procedures. Pt will need continued regular follow up (G2211) with nephrology documented in this encounterOur [facility] Of [facility]10-17-2024 NoteHNO ID: [id number] Author: HAIR ADAMES APRN.NEAL Service: ? 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 [place]-3 Fatty Acids-Vitamin E (FISH OIL) 1,000 mg [...] -Chest xray with pl (more content not included)...[facility] 08-06-2024 Miscellaneous Notes* Telephone Encounter - [...] next appointment on 08/13 documented in this encounterOur [facility]10-[facility]24 Telephone encounter Note * Telephone Encounter [...] day before his next appointment on 08/13 [facility]07-25-2024 Instructions* Patient Instructions* Hair Adames, ACCOUNTS PAYABLE TECHNICIAN.PLATING INSPECTOR - 05/21/2024 9:36 AM EDT PLAN: -Please [...] blood sodium- I have found it on [employer] fairly inexpensively Please bring a complete list [...] improve our service to you by calling [phone] You may be receiving a survey regarding your care today. If you do, please take a few minutes to fill it out and send it back. It would be greatly appreciated. 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 [place]-3 Fatty Acids-Vitamin E (FISH OIL) 1,000 mg [...] CT scan -hx asbestos exposure as commercial banker -following with pulmonology Metabolic/electrolytes: K+- 4.2 wnl [...] blood sodium- I have found it on [employer] fairly inexpensively Hair Adames CNP I spent a total of 39 minutes on the date of the service which included preparing to see the patient, ebzi-ol-thsu patient care, completing clinical documentation, performing a medically appropriate examination, counseling and educating the patient/family/caregiver and ordering medications, tests, or procedures. Pt will need continued regular follow up (G2211) with nephrology documented in this encounterOur [facility]06-[facility] Procedure note* Tara Lino RPFT - [...] DATE: April 07, 2024 TIME: 4:46 PM [facility] Procedure note* Tara Lino RPFT - [...] 2024 TIME: 4:46 PM documented in this encounterOur Lady Of Mercy Hospital06-11-2024 History of Present illness Narrative* Tara Lino RPFT - 04/07/2024 1:27 PM EDT PULM FUNCTION: Provider: Ramon Samuel MD Assisting Tech: Tara Lino RPFT Spirometry: 1 DLCO: 1 LV - Box: 1 6 MW: 1 documented in this encounterOur Lady Of [facility]06-03-2024 Telephone encounter Note * Telephone Encounter - Maida Phillips MA - 03/30/2024 1:24 PM EDT I spoke with Jacklyn at [facility] in Images she is currently sending the CT Scan of Chest from 11/03/2019 thru PACS. She unable to locate any PFT testing. States I=only labs were done. [facility]-03-[facility]24 Miscellaneous Notes* Telephone Encounter - Maida Phillips MA - 03/30/2024 1:24 PM EDT I spoke with Jacklyn at [facility] in Images she is currently sending the CT Scan of Chest from 11/03/2019 thru PACS. She unable to locate any PFT testing. States I=only labs were done. * Telephone Encounter - Ramon Samuel MD - 03/30/2024 12:47 PM EDT Please request the ct chest done at [facility] in 11/03/2019 on a CD. Also please request the breathing test done on 2019 Thanks ma documented in this encounterOur Lady Of [facility] Hospital06-03-2024 Telephone encounter Note * Telephone Encounter - Ramon Samuel MD - 03/30/2024 12:47 PM EDT Please request the ct chest done at [facility] in 11/03/2019 on a CD. 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 [place]-3 Fatty Acids-Vitamin E (FISH OIL) 1,000 mg [...] or any previous visit (from the past 99036 hour(s)). XR CHEST 2V FRONTAL/LAT Result Date: 02/20/2024 IMPRESSION: Pleural thickening along the left lateral hemithorax. CT chest recommended for further evaluation ACTIONABLE RESULT: FOLLOW-UP Acuity: Actionable Findings: Thoracic-Other Routing Code: CT_1 Recommendation: CT Chest WO IVCON Time Frame: At the discretion of the clinical team. COMMUNICATION: Results will be communicated with the ordering provider via [employer] staff message or phone message by [employer] within 2 business days of report finalization. --END OF FINDING-- Software Developer Intern: PSCB Transcribe Date/Time: Feb 20 2024 1:48P [...] be communicated with the ordering provider via [employer] staff message or phone message by [employer] within 2 business days of report finalization. --END OF FINDING-- Software Developer Intern: PSCB Transcribe Date/Time: Mar 18 2024 8:21A Dictated by : CASANDRA RITTER MD This examination wasinterpreted and the report reviewed and electronically signed by: CASANDRA RITTER MD on March 1869869:45AM EST Immunizations: Unknown ASSESSMENT/PLAN ASSESSMENT/PLAN: 1. Pleural plaque - ICD9: 511.0, ICD10: J92.9 (primary diagnosis) Calcified and non calcified seen on ct chest 01/2024 Ct chest 2020: no mention of pleural plaques Will request the ct chest from [facility] on a CD Repeat ct chest yearly [...] MD Ramon Machado MD, MICHELLE Staff, Respiratory [place] [facility] CC: No primary care provider on file. Rubio Grimes MD documented in this encounterOur Lady Of Mercy Hospital05-22-2024 Telephone encounter Note * Telephone Encounter - Rubio Grimes MD - 03/18/2024 10:07 AM EDT Results of the CT of the chest discussed with the patient. He has bilateral pleural plaques,; whichcould be from asbestosis exposure. I asked him to make an appointment with pulmonary for a follow-up on this. He will repeat his sodium next week. Verbalized understanding. [facility] Miscellaneous Notes* Telephone Encounter - Rubio Grimes MD - 03/18/2024 10:07 AM EDT Results of the CT of the chest discussed with the patient. He has bilateral pleural plaques,; whichcould be from asbestosis exposure. I asked him to make an appointment with pulmonary for a follow-up on this. He will repeat his sodium next week. Verbalized understanding. documented in this encounterOur Lady Of Mercy Hospital05-17-2024 History of Present illness Narrative* Jennifer [...] PATIENT PRESENTS WITH AN IMPLANTABLE OR ATTACHED DIETARY MANAGER: No RADIOLOGY DEPARTMENT: CT; Exam(s) Completed: Chest PERIPHERAL IV DATA: 22g left ac. D/c after scan SIGNED BY: RT Spike(R) March 13, 2024 11:34 AM documented in this encounterOur Lady Of Mercy Hospital04-25-2024 Telephone encounter Note * Telephone Encounter [...] contrast ordered and advised to see pulmonary. [facility] Miscellaneous Notes* Telephone Encounter - Rubio [...] advised to see pulmonary. documented in this encounterOur Lady Of Mercy Hospital04-25-2024 Telephone encounter Note * Telephone Encounter - Nelia Vinson LPN - 02/20/2024 4:20 PM EDT Message forwarded to Dr. Grimes [facility]04-25-2024 Miscellaneous Notes* Telephone Encounter - Nelia Vinson LPN - 02/20/2024 4:20 PM EDT Message forwarded to Dr. Grimes * Telephone Encounter - Jean Paul Harper RN - 02/20/2024 4:08 PM EDT Pt returning call from to go over lab results. Pt # [phone] documented in this encounterOur Lady Of Mercy Hospital04-25-2024 Telephone encounter Note * Telephone Encounter - Jean Paul Harper RN - 02/20/2024 4:08 PM EDT Pt returning call from to go over lab results. Pt # [phone] [facility]04-24-[facility] History of Present illness Narrative* Hortensia [...] PATIENT PRESENTS WITH AN IMPLANTABLE OR ATTACHED DIETARY MANAGER: No RADIOLOGY DEPARTMENT: General X-ray: Exam(s) Completed: Chest X-Ray PERIPHERAL IV DATA: Not applicable SIGNED BY: ADALID Copeland February 19, 2024 9:09 AM documented in this encounterOur Lady Of Mercy Hospital04-24-2024 Instructions* Patient Instructions* Rubio Grimes MD - 02/19/2024 8:42 AM EDT Fluid restriction of 1500 ml per day. Labs today, then every 3 months Schedule a Chest Xray. documented in this encounterOur Lady Of Mercy Hospital04-24-2024 History of Present illness Narrative* Rubio Grimes MD - 02/19/2024 8:00 AM EDT [facility] NEPHROLOGY & HYPERTENSION [facility] SERVICE DATE: 02/19/2024 [...] Back in 2019 he was admitted to [facility] with Na of 117; He was advised to fluid restrict to around 1.5L a day. He was being seen by Dr Guan (with [facility] [place]) who up'ed his restriction to around 1.8L [...] swelling of lower extremities. 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 Patient is mostly here [facility]. PAST MEDICAL HISTORY: PAST MEDICAL HISTORY Diagnosis [...] Take 81 mg by mouth once daily. [place]-3 Fatty Acids-Vitamin E (FISH OIL) 1,000 mg [...] 3 months. Follow-up in 3 months with me or Hair. I spent a total of 70 minutes on the date of the service which included preparing to see the patient, xcsz-io-nrny patient care, completing clinical documentation, obtaining and/or reviewing separately obtained history, performing a medically appropriate examination, counseling and educating the pat ient/family/caregiver, and ordering medications, tests, or procedures. SIGNATURE: Rubio Grimes MD PATIENT NAME: Jorge A Rivera OFFICE NUMBER: [phone] CC: REFERRING PROVIDER: No ref. provider found PRIMARY CARE PHYSICIAN: No primary care provider on file. documented in this encounterOur Lady Of Mercy Hospital03-08-2024 Progress note Author Judy Guan [facility] January 03, 2024 8:16am Note Date/Time January 03, 2024 8:15 am [facility] Medical Records Department [address] [place] [address] Progress Note 01/03/24810 MR#: [id number] Acct: [id number] Name: JORGE A RIVERA Rep #:[id number] : 1960 63 From: Judy Hansen PCP: Dr. Rick Gaffney, DO Status:ADM IN Location: [place] [address] Progress Note sodium improved to 126 after received one dose of tolvaptan 15mg last night. vss acute hyponatremia due to SIADH improved. Recheck level as outpt in 1 week. ok to stop iv fluids when taking po well. influenza on tamiflu 01/03/24 0816 <Electronically signed by Judy Guan DO> Judy Guan DO Cosigner Signature (if applicable): CC: ~ Signed [facility] Work Phone: 1(786) 825-542603-07-2024 Consult note Author [facility] January 02, 2024 5:59pm Note Date/Time January 02, 2024 5:53 pm [facility] Medical Records Department [address] [place] [address] Consultation - Nephrology 01/02/24 1218 MR#: [id number] Acct: [id number] Name: JORGE A RIVERA Rep #:[id number] : 1960 63 From: Judy Hansen PCP: Dr. Rick Gaffney, DO Status:ADM IN Location: [place] [address] Assessment & Plan Assessment/Plan (1) Hyponatremia: PLAN: [...] home meds (5) Atherosclerotic heart disease of [place] coronary artery without angina pectoris: QUALIFIERS: [place] vs. transplanted heart: [place] heart QualifiedCode(s): I25.10 - Atherosclerotic heart disease of [place] coronary artery without angina pectoris HPI Consult Data Date of Consult: 01/02/24 HPI Narrative Reason for Consultation: hyponatremia HPI Narrative: JORGE A RIVERA, is a 63 M [address] presents to [facility] ED for persistent weakness, lightheadedness, poor appetite, nausea since Saturday. Seen in urgent care and wasdiagnosed with influenza treated wtih tamiflu. Complains of myalgias, fever, chills, cough with wheezing. Sodium low at 116. Hx of SIADH with sodium at 129. Currently on NSS. Creatinine 0.54. Denies sick contacts at home. 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 [facility] Medical History Atherosclerotic heart disease of [place] coronary artery without angina pectoris Carotid bruit [...] Oil Concentrate) 1,000 mg PO QDAY [facility] 11/29/17 [History Last Taken 11/01/19] atorvastatin 10 [...] (Auto) 74.5 H, Lymph % (Auto) 15.7 L,[place] % (Auto) 8.7, Eos % (Auto) 0.4, [...] (Auto) 70.3 H, Lymph % (Auto) 19.8, [place] % (Auto) 8.6, Eos % (Auto) 0.5, [...] 3.6, Albumin/Globulin Ratio 0.9, TSH 0.63 01/02/24 3509 <Electronically signed by Judy Guan DO> Cosigner Signature (if applicable): CC: Dr. Judy Guan, ; Dr. Josee Guan DO; Dr. Rick Gaffney DO~ Signed [facility] Work Phone: 1(137) 152-165903-07-2024 Progress note Author Bull Gusman [facility] January 03, 2024 1:51pm Note Date/Time January 02, 2024 10:1 5am [facility] Medical Records Department [address] [place] [address] Progress Note - Hospitalist 01/02/24 1011 MR#: [id number] Acct: [id number] Name: JORGE A RIVERA Rep #:[id number] : 1960 63 From: Bull Grayson PCP: Dr. Rick Gaffney DO Status:ADM IN Location: [place] [address] Reason for Visit Reason for Visit: Diagnoses [...] (Auto) 74.5 H, Lymph % (Auto) 15.7 L,[place] % (Auto) 8.7, Eos % (Auto) 0.4, [...] (Auto) 70.3 H, Lymph % (Auto) 19.8, [place] % (Auto) 8.6, Eos % (Auto) 0.5, [...] RCA and SVG to DX, SVG to [facility] per Dr. Rubio -Continue home aspirin [...] infection -Quit smoking in 2009 but has 36-oyct-etwx history DVT prophylaxis -Lovenox subcu daily CODE STATUS -Full code is verified on admission Charges/Coding Visit Charges Inpatient E&M: 81830 Subs Hosp L2 01/02/24 4249 <Electronically signed by Bull Gusman MD> Cosigner Signature (if applicable): CC: ~ Signed ADDENDUM by Dr. Blul Gusman MD on 01/03/24 at 1351 Addendum [...] Cosigner Signature (if applicable): cc: ~* Signed [facility] Work Phone: 1(765) 427-384603-06-2024 Discharge summary Author Dereck Delvalle [facility] January 01, 2024 4:49pm Note Date/Time January 01, 2024 1:23 pm [facility] Medical Records Department [address] [place] [address] Emergency Department Summary 01/01/24 MR#: [id number] Acct: [id number] Name: JORGE A RIVERA Rep #:[id number] : 1960 63 From: Dereck Delvalle MD [...] similar symptoms: No Recent Illness/Hospitalization: Yes PFSH [facility] Medical History Atherosclerotic heart disease of [place] coronary artery without angina pectoris Carotid bruit [...] (Fish Oil Concentrate) 1,000 mg PO QDAY [facility] 11/29/17 [History Last Taken 11/01/19] atorvastatin 10 [...] Impression: Acute hyponatremia, Atherosclerotic heart disease of [place] coronary artery without angina pectoris, Influenza, Generalized [...] Primary Care Provider: Rick Gaffney Referrals: Rick Gaffney, [Primary Care Provider] - What to do if you have Problems For any increased pain, shortness of breath, bleeding, nausea or vomiting, chestpain, or any unexpected problems, contact your Primary Care Provider. Call [facility] ([phone]) or report to the closest Emergency Room. Call 911 if necessary. 01/01/24 1649 <Electronically signed by Dereck Delvalle MD> Cosigner Signature (if applicable): CC: Dr. Rick Gaffney DO ~ Signed [facility] Work Phone: 1(181) 100-751303-06-2024 History and physical note Author Josee Guan [facility] January 01, 2024 4:49pm Note Date/Time January 01, 2024 4:35 pm [facility] System Medical Records Department [address] [place] [address] H&P Exam - Hospitalist 01/01/24 1625 MR#: [id number] Acct: [id number] Name: JORGE A RIVERA Rep #:[id number] : 1960 63 From: Josee Guan DO PCP: Dr. Rick Gaffney DO Status:REG ER Location: ED HPI - General General Date of Admission: 01/01/24 Date of Service: 01/01/24 Chief Complaint: Generalized weakness HPI Narrative JORGE A RIVERA, is a 63 M who presented to the emergency department at [facility] on 01/01/2024. Patient stated he started [...] of IV fluids in the emergency department. [facility] Medical History Atherosclerotic heart disease of [place] coronary artery without angina pectoris Carotid bruit [...] (Fish Oil Concentrate) 1,000 mg PO QDAY [facility] 11/29/17 [History Last Taken 11/01/19] atorvastatin 10 [...] RCA and SVG to , SVG to [facility] per Dr. Rubio -Continue home aspirin [...] infection -Quit smoking in 2009 but has 59-otfl-uxbu history DVT prophylaxis -Lovenox subcu daily CODE STATUS -Full code is verified on admission Charges/Coding Visit Charges Inpatient E&M: 35105 Init Hosp L2 01/01/24 1649 <Electronically signed by Josee Guan DO> Cosigner Signature (if applicable): CC: Dr. Josee Guan DO; Dr. Rick Gaffney DO~ Signed [facility] Work Phone: 1(873) 885-370503-06-2024 Discharge summary Author Dereck Delvalle [facility] January 01, 2024 4:49pm Note Date/Time January 01, 2024 1:23 pm [facility] Medical Records Department [address] [place] [address] Emergency Department Summary 01/01/24 MR#: [id number] Acct: [id number] Name: JORGE A RIVERA Rep #:[id number] : 1960 63 From: Dereck Delvalle MD [...] similar symptoms: No Recent Illness/Hospitalization: Yes PFSH [facility] Medical History Atherosclerotic heart disease of [place] coronary artery without angina pectoris Carotid bruit [...] Plan Triage Chief Complaint: Weakness ED Provider: eDreck Delvalle Dx/Rx/DC Orders Clinical Impression: Acute hyponatremia, Atherosclerotic heart disease of [place] coronary artery without angina pectoris, Influenza, Generalized [...] your Primary Care Provider. Call [facility] ([phone]) or report to the closest Emergency Room. Call 911 if necessary. 01/01/24 5307 <Electronically signed by Dereck Delvalle MD> Cosigner Signature (if applicable): CC: Dr. Rick Gaffney DO ~ Signed [facility] Work Phone: 1(534) 313-906803-01-2010 Evaluation note* Diagnosis Onset Date Resolution Status History of coronary artery bypass surgery December, acute Atherosclerotic heart diseas e of [place] coronary artery without angina pectoris chronic Essential hypertension chron ic Hyperlipidemia chronic [facility] Work Phone: 1(639) 173-169803-01-2010 Evaluation note* Diagnosis Onset Date Resolution Status History of coronary artery bypass surgery December, acute Essential hypertension chron ic Hyperlipidemia chronic [facility] Work Phone: 1(203) 341-981303-01-2010 Evaluation note* Diagnosis Onset Date Resolution Status Admit Date History of coronary artery b ypass surgery December, acute March 02, 2025 8: 08am PAD (peripheral artery disease) acut e March 02, 2025 8:08am Atherosclerotic heart diseas e of [place] coronary artery without angina pectoris chronic March 02, 2025 8: 08am Hyperlipidemia chronic March 02, 025 8:08am Hypertension chronic March 02 8:08am [facility] Work Phone: Consult note Author Erasto Perdue [facility] January 03, 2024 2:28pm Note Date/Time January 03, 2024 2:28 pm [facility] Medical Records Department [address] [place] [address] Counseling Note - Pharmacy 01/03/24 1427 MR#: [id number] Acct: [id number] Name: JORGE A RIVERA Rep #:[id number] : 1960 63 From: Erasto Perdue PCP: Dr. Rick Gaffney, DO Status:ADM IN Y Location: [place] [address] Pharmacy MS Med Reconciliation Pharmacy Service has performed discharge [...] tabs 12/31/23 01/03/24 1428 <Electronically signed by Erasot pascal> Date _ Erasto Love Signature (if applicable): Date CC: ~ Signed [facility] Work Phone: Discharge summary Author Bull Gusman [facility] January 03, 2024 1:46pm Note Date/Time January 03, 2024 1:43 pm [facility] Medical Records Department [address] [place] [address] Instructions for Home/Discharge Instructions 01/03/24 1307 MR#: [id number] Acct: [id number] Name: JORGE A RIVERA Rep #:[id number] : 1960 63 From: Bull Grayson PCP: [...] DO; Dr. Rick Gaffney DO ~ Signed [facility] Work Phone: Discharge summary Author Bull Gusman [facility] January 03, 2024 1:50pm Note Date/Time January 03, 2024 1:47 pm [facility] Medical Records Department [facility] [place] [address] Discharge Summary 01/03/24 1346 MR#: [id number] Acct: [id number] Name: JORGE A RIVERA Rep #:[id number] : 1960 63 From: Bull Grayson PCP: Dr. Rick Gaffney DO Status:ADM IN Location: [place] [address] Providers Date of Admission: 01/01/24 Primary Care [...] (primary) hypertension (5) Atherosclerotic heart disease of [place] coronary artery without angina pectoris: Status: Chronic Code(s): I25.10 - Atherosclerotic heart disease of [place] coronary artery without angina pectoris Qualifiers: [place] vs. transplanted heart: [place] heart Qualified Code(s): I25.10 -Atherosclerotic heart disease of [place] coronary artery without angina pectoris Plan Patient [...] sodium tablet. 01/02: Patient was seen by butadiene converter 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. Patient had 15 mg 1 dose. His sodium increased from 1 22-1 26. Prior to that it was 116. Sodium tablet has been discontinued. IV fluid normal saline discontinued in the morning. Patient doesnot have neurological symptoms including headache, change in mental status confusion diplopia. Discussed with the butadiene converter 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. Patient wants to go home and okay [...] and SVG to DX, SVG to [facility] per Dr. Rubio -Continue home aspirin [...] infection -Quit smoking in 2009 but has 68-tzcr-rbsl history DVT prophylaxis -Lovenox subcu daily CODE [...] (Fish Oil Concentrate) 1,000 mg PO QDAY [facility] 11/29/17 atorvastatin 10 mg tablet See Rx [...] % (Auto) 66.0, Lymph % (Auto) 22.5, [place] % (Auto) 9.9, Eos % (Auto) 0.6, [...] Self Care Charges/Coding Visit Charges Inpatient E&M: 02296 Disch Hosp >30min 01/03/24 1350 <Electronically signed by Bull Gusman MD> Cosigner Signature (if applicable): CC: Dr. Judy Guan DO; Dr. Rick Gaffney DO; Dr. Bull Gusman MD~ Signed [facility] Work Phone: Evaluation noteNo assessment information available [facility] Work Phone: Evaluation note* Diagnosis Onset Date Resolution Status Influenza acute Acute bronchospasm acute Acute hyponatremia acute Generalized weakness acute Hyponatremia acute Influenza acute Atherosclerotic heart diseas e of [place] coronary artery without angina pectoris chronic COPD (chronic obstructive pulmonary disease) chronic Essential hypertension chron ic History of SIADH chronic Hyperlipidemia chronic [facility] Work Phone: Evaluation note* Diagnosis Onset Date Resolution Status Influenza acute Acute bronchospasm acute Generalized weakness acute Hyponatremia acute Influenza acute Atherosclerotic heart diseas e of [place] coronary artery without angina pectoris chronic COPD (chronic obstructive pulmonary disease) chronic Essential hypertension chron ic Hyperlipidemia chronic Acute hyponatremia resolved [facility] Work Phone: Evaluation note* Diagnosis SIADH (syndrome of inappropriate ADH production) (HCC)- Primary Other disorders of neurohypophysis Hyponatremia Hyposmolality and/or hyponatremia Essential hypertension Unspecified essential hypertension [facility] Diagnosis Pleural thickening- Primary Pleurisy without mention of effusion or current tuberculosis SIADH (syndrome of inappropriate ADH production) (HCC) Other disorders of neurohypophysis documented [facility] encounter [facility] Diagnosis Pleural effusion Unspecified pleural effusion [facility] Diagnosis Pleural plaque- Primary Pleurisy without mention of effusion or current tuberculosis [facility] Diagnosis Hyponatremia Hyposmolality and/or hyponatremia [facility]* Diagnosis Pleural plaque- Primary Pleurisy without mention of effusion or current tuberculosis Centrilobular emphysema (HCC) Other emphysema Interstitial pulmonary disease (HCC) Postinflammatory pulmonary fibrosis Ex-smoker Personal history of tobacco use, presenting hazards to health Hyponatremia Hyposmolality and/or hyponatremia [facility] Diagnosis Pleural plaque Pleurisy without mention of effusion or current tuberculosis Centrilobular emphysema (HCC) Other emphysema [facility] Diagnosis Pleural plaque Pleurisy without mention of effusion or current tuberculosis Centrilobular emphysema (HCC) Other emphysema [facility]* Diagnosis Hyponatremia- Primary Hyposmolality and/or hyponatremia SIADH (syndrome of inappropriate ADH production) (HCC) Other disorders of neurohypophysis Essential hypertension Unspecified essential hypertension Other hyperlipidemia Pleural plaque Pleurisy without mention of effusion or current tuberculosis [facility] Diagnosis Hyponatremia Hyposmolality and/or hyponatremia SIADH (syndrome of inappropriate ADH production) (HCC) Other disorders of neurohypophysis [facility] Diagnosis SIADH (syndrome of inappropriate ADH production) (HCC)- Primary Other disorders of neurohypophysis documented [facility]* Diagnosis Hyponatremia- Primary Hyposmolality and/or hyponatremia SIADH (syndrome of inappropriate ADH production) (HCC) Other disorders of neurohypophysis Essential hypertension Unspecified essential hypertension Other hyperlipidemia Pleural thickening Pleurisy without mention of effusion or current tuberculosis [facility] Diagnosis Hyponatremia- Primary Hyposmolality and/or hyponatremia SIADH (syndrome of inappropriate ADH production) (HCC) Other disorders of neurohypophysis Essential hypertension Unspecified essential hypertension [facility] Diagnosis Hyponatremia- Primary Hyposmolality and/or hyponatremia SIADH (syndrome of inappropriate ADH production) (HCC) Other disorders of neurohypophysis Essential hypertension Unspecified essential hypertension [facility] Author Josee Guan [facility] January 01, 2024 4:49pm Note Date/Time January 01, 2024 4:35 pm [facility] Medical Records Department [address] [place] [address] H&P Exam - Hospitalist 01/01/24 1625 MR#: [id number] Acct: [id number] Name: JORGE A RIVERA Rep #:[id number] : 1960 63 From: Josee Guan DO PCP: Dr. Rick Gaffney DO Status:REG ER Location: ED HPI - General General Date of Admission: 01/01/24 Date of Service: 01/01/24 Chief Complaint: Generalized weakness HPI Narrative JORGE A RIVERA, is a 63 M who presented to the emergency department at [facility] on 01/01/2024. Patient stated he started [...] of IV fluids in the emergency department. [facility] Medical History Atherosclerotic heart disease of [place] coronary artery without angina pectoris Carotid bruit [...] Oil Concentrate) 1,000 mg PO QDAY [facility] 11/29/17 [History Last Taken 11/01/19] atorvastatin 10 [...] and SVG to DX, SVG to [facility] per Dr. Rubio -Continue home aspirin [...] infection -Quit smoking in 2009 but has 83-[id number] history DVT prophylaxis -Lovenox subcu daily CODE STATUS -Full code is verified on admission Charges/Coding Visit Charges Inpatient E&M: 99112 Init Hosp L2 01/01/24 1649 <Electronically signed by Josee Guan DO> Cosigner Signature (if applicable): CC: Dr. Josee Guan DO; Dr. Rick Gaffney, ~ Signed [facility] Work Phone: Reason for referral (narrative)No reason for referral information availableWFisher-[facility] Work Phone: Chief Complaint and Reason for Visit Chief Complaint DRIVE THRU COVID EMMA T Chief Complaint INT LABS Chief Complaint 9 m fu Reason for Visit History of coronary artery bypass surgery Atherosclerotic heart disease of [place] coronary artery without angina pectoris Essential hypertension [...] weakness Hyponatremia Influenza Atherosclerotic heart disease of [place] coronary artery without angina pectoris COPD (chronic obstructive pulmonary disease) Essential hypertension History of SIADH Hyperlipidemia Chief Complaint INT LABS BA/FATIGUED/COUGH Weakness SEVERE HYPONATREMIA/GENERALIZED WEAKNESS SEVERE HYPONATREMIA/GENERALIZED WEAKNESS SEVERE HYPONATREMIA/GENERALIZED WEAKNESS Reason for Visit Influenza Acute bronchospasm Acute hyponatremia Generalized weakness Hyponatremia Influenza Atherosclerotic heart disease of [place] coronary artery without angina pectoris COPD (chronic obstructive pulmonary disease) Essential hypertension History of SIADH Hyperlipidemia Chief Complaint INT LABS BA/FATIGUED/COUGH Weakness SEVERE HYPONATREMIA/GENERALIZED WEAKNESS SEVERE HYPONATREMIA/GENERALIZED WEAKNESS SEVERE HYPONATREMIA/GENERALIZED WEAKNESS Reason for Visit Influenza Acute bronchospasm Generalized weakness Hyponatremia Influenza Atherosclerotic heart disease of [place] coronary artery without angina pectoris COPD (chronic obstructive pulmonary disease) Essential hypertension Hyperlipidemia Acute hyponatremia Chief Complaint INT LABS BA/FATIGUED/COUGH Weakness SEVERE HYPONATREMIA/GENERALIZED WEAKNESS SEVERE HYPONATREMIA/GENERALIZED WEAKNESS SEVERE HYPONATREMIA/GENERALIZED WEAKNESS DUE AROUND DATE LISTED Reason for Visit Influenza Acute bronchospasm Generalized weakness Hyponatremia Influenza Atherosclerotic heart disease of [place] coronary artery without angina pectoris COPD (chronic [...] 2025 8:08am Atherosclerotic heart diseas e of [place] coronary artery without angina pectoris March 02, [...] nspecified March 25, 2025 7:37am Family History No Family History Records Found Relationship Condition Age at Onset Recorded Date/T [...] disease Mother Bleeding disorder Mother Advance Directives No Advanced Directives Records Found Advance Directive Response Recorded Date/ Time Living Will No July 19, 2021 4:36pm Power of Caustic Liquor Maker No June 4:36pm Advance Directive Response Recorded Date/ Time Living Will No July 19, 2021 3:36pm Power of Caustic Liquor Maker No June 3:36pm Advance Directive Response Recorded Date/ Time Name of Medical Power of Caustic Liquor Maker Bettina Rivera January 01, 2024 12:07pm Living Will Yes January 01, 2024 12:07pm Power of Caustic Liquor Maker Yes December 31 12:07pm Advance Directive Response Recorded Date/ Time Name of Medical Power of Caustic Liquor Maker Bettina Rivera January 01, 2024 5:48pm Living Will Yes January 01, 2024 5:48pm Power of Caustic Liquor Maker Yes December 31 5:48pm Advance Directive Response Recorded Date/ Time Name of Medical Power of Caustic Liquor Maker Bettina Rivera January 01, 2024 6:48pm Living Will Yes January 01, 2024 6:48pm Power of Caustic Liquor Maker Yes December 31 6:48pm Advance Directive Response Recorded Date/ Time Living Will Yes January 01, 2024 6:48pm Do you have a Healthcare Power of Caustic Liquor Maker? Yes January 01, 2024 6:48pm Reason for Referral Specialty Diagnoses / Procedures Referred By Del t Referred To Contact Pulmonary and Critical Care Medicine Diagnoses Pleural thickening SIADH (syndrome of inappropriate ADH production) (HCC) Procedures CONSULT TO PULM/CRITICAL CARE OFFICE/OUTPATIENT [facility] [address] [place] [address] [place] [address] Referral ID Status Reason Start Date Expiration Date Visits Requested Visits Authorized [id number] Authorized PCP Requested Referral 02/20/2024 02/19/2025 1 1 Specialty Diagnoses / Procedures Referred By Contac t Referred To Contact Pulmonary and Critical Care Medicine Diagnoses Pleural plaque Procedures CONSULT TO PULM/CRITICAL CARE OFFICE/OUTPATIENT [facility] [address] [place] [address] [place] [address] Referral ID Status Reason Start Date Expiration Date Visits Requested Visits Authorized [id number] Authorized PCP Requested Referral 03/18/2024 03/18/2025 1 1 Specialty Diagnoses / Procedures Referred By Contac t Referred To Contact CT IMAGING Diagnoses Interstitial pulmonary disease (HCC) Procedures CT CHEST WO IVCON DIAGNOSTIC COMPUTED TOMOGRAPHY THORAX W/O CNTRST Ramon Samuel MD [address] [place] [address] Ct Imaging [facility] Referral ID Status Reason Start Date Expiration Date Visits Requested Visits Authorized [id number] Pending Review Auto-Generat ed Referral 03/30/2025 04/29/2025 1 1 Specialty Diagnoses / Procedures Referred By Contac t Referred To [facility] [place] Diagnoses Pleural plaque Centrilobular emphysema (HCC) Procedures SIX MINUTE WALK CARDIOPULMONARY EXERCISE STRESS Ramon Samuel MD [address] [place] [address] Respiratory [place] [address] [place] [address] Referral ID Status Reason Start Date Expiration Date Visits Requested Visits Authorized [id number] Authorized Auto-Generat ed Referral 03/30/2024 04/29/2025 1 1 Specialty Diagnoses / Procedures Referred By Contac t Referred To [facility] Diagnoses Pleural plaque Centrilobular emphysema (HCC) Procedures LUNG DIFFUSION CAPACITY (DLCO) DIFFUSING CAPACITY Ramon Samuel MD [address] [place] [address] [address] Referral ID Status Reason Start Date Expiration Date Visits Requested Visits Authorized [id number] Authorized Auto-Generat ed Referral 03/30/2024 04/29/2025 1 1 Specialty Diagnoses / Procedures Referred By Contac t Referred To [facility] [place] Diagnoses Pleural plaque Centrilobular emphysema (HCC) Procedures LUNG VOLUMES Ramon Samuel MD [address] [place] [address] [address] Referral ID Status Reason Start Date Expiration Date Visits Requested Visits Authorized [id number] Pending Review Auto-Generat ed Referral 03/30/2024 04/29/2025 1 1 Specialty Diagnoses / Procedures Referred By Contac t Referred To [facility] [place] Diagnoses Pleural plaque Centrilobular emphysema (HCC) Procedures SPIROMETRY WITH DILATOR IF OBSTRUCTED BRNCDILAT RSPSE SPMTRY PRE&POST-BRNCDILAT ADMN Ramon Samuel MD [address] [place] [address] [address] Referral ID Status Reason Start Date Expiration Date Visits Requested Visits Authorized [id number] Authorized Auto-Generat ed Referral 03/30/2024 04/29/2025 1 [...] Gaffney , DO Primary Care Provider Active Karla Boyer PA, PA Attending Provider, Referr ing Provider Active Team Status: Inactive Member Role Status Dates Dr. Rick Gaffney DO Primary Care Provider, Referrin g Provider Active Kurt Quintero STRUCTURAL STEEL EQUIPMENT ERECTOR, STRUCTURAL STEEL EQUIPMENT ERECTOR-C Attending Provider Active Team Status: Active Member [...] Judy Guan DO Attending Provider, Referring P rovider Active Dr. Jeferson Thomas MD Primary Care Provider Active Chief Of Staff Relationship Specialty Start Date End Date Jeferson Thomas MD [address] [facility] [address] [place] [address] PCP - General Internal Medicine 03/30/24 Ramon Samuel MD [address] [place] [address] Pulmonary and Critical Care Medicine 03/30/24 Chief Of Staff Relationship Specialty Start Date End Date Jeferson Thomas MD [address] [facility] [address] [place] [address] PCP - General Internal Medicine 03/30/24 Ramon Samuel MD [address] [place] [address] Pulmonary and Critical Care Medicine 03/30/24 Chief Of Staff Relationship Specialty Start Date End Date Jeferson Thomas MD [address] [facility] [address] [place] [address] PCP - General Internal Medicine 03/30/24 Ramon Samuel MD [address] [place] [address] Pulmonary and Critical Care Medicine 03/30/24 Chief Of Staff Relationship Specialty Start Date End Date Jeferson Thomas MD [address] [facility] [address] [place] [address] PCP - General Internal Medicine 03/30/24 Ramon Samuel MD [address] [place] [address] Pulmonary and Critical Care Medicine 03/30/24 Chief Of Staff Relationship Specialty Start Date End Date Jeferson Thomas MD [address] [facility] [address] [place] [address] PCP - General Internal Medicine 03/30/24 Ramon Samuel MD [address] [place] [address] Pulmonary and Critical Care Medicine 03/30/24 Chief Of Staff Relationship Specialty Start Date End Date Jeferson Thomas MD [address] [facility] [address] [place] [address] PCP - General Internal Medicine 03/30/24 Ramon Samuel MD [address] [place] [address] Pulmonary and Critical Care Medicine 03/30/24 Chief Of Staff Relationship Specialty Start Date End Date Jeferson Thomas MD [address] [facility] [address] [place] [address] PCP - General Internal Medicine 03/30/24 Ramon Samuel MD [address] [place] [address] Pulmonary and Critical Care Medicine 03/30/24 Chief Of Staff Relationship Specialty Start Date End Date Jeferson Thomas MD [address] [facility] [address] [place] [address] PCP - General Internal Medicine 03/30/24 Ramon Samuel MD [address] [place] [address] Pulmonary and Critical Care Medicine 03/30/24 Chief Of Staff Relationship Specialty Start Date End Date Jeferson Thomas MD [address] [place] [address] [place] [address] PCP - General Internal Medicine 03/30/24 Ramon Samuel MD [address] [place] [address] Pulmonary and Critical Care Medicine 03/30/24 Chief Of Staff Relationship Specialty Start Date End Date Jeferson Thomas MD [address] [facility] [address] [address] [place] [address] PCP - General Internal Medicine 03/30/24 Ramon Samuel MD [address] [place] [address] Pulmonary and Critical Care Medicine 03/30/24 Team [...] 17, 2025 End: March 17, 2025 Karla VALENZUELA, PA Attending Provider Active Start: March 17, 2025 End: March 17, 2025 Karla VALENZUELA, PA Referring Provider Active Start: March 17, 2025 End: March 17, 2025 Team Status: Active Member Role Status Dates Dr. Jeferson Tohmas MD Primary Care Provider Active Start: March 17, 2025 Karla VALENZUELA, PA Referring Provider Active Start: March 17, 2025 Karla VALENZUELA, PA Other Provider Active Start: March 17, [...] March 25, 2025 End: March 25, 2025 Chief Of Staff Relationship Specialty Start Date End Date Jeferson Thomas MD [address] [facility] [address] [place] [address] PCP - General Internal Medicine 03/30/24 Ramon Samuel MD [address] [place] [address] Pulmonary and Critical Care Medicine 03/30/24 Chief Of Staff Relationship Specialty Start Date End Date Jeferson Thomas MD [address] [facility] [address] [place], [place] [address] PCP - General Internal Medicine 03/30/24 Ramon Samuel MD [address] [place] [address] Pulmonary and Critical Care Medicine 03/30/24 Team Status: Active Member Role/Relationship Status Dates Dr. Jeferson Thomas MD Primary Care Provider Active Team Status: Inactive Member Role/Relationship Status Dates Dr. Jeferson Thmoas MD Primary Care Provider Active Start: February [...] Provider Active Start: March 17, 2025 Dr. Ánegl Nichole MD Attending Provider Active S tart: [...] May 09, 2025 End: May 09, 2025 Chief Of Staff Relationship Specialty Start Date End Date Jeferson Thomas MD [address] [facility] [address] [place] [address] PCP - General Internal Medicine 03/30/24 Ramon Samuel MD [address] [place] [address] Pulmonary and Critical Care Medicine 03/30/24 Chief Of Staff Relationship Specialty Start Date End Date Jeferson Thomas MD [address] [facility] [address] [place] [address] PCP - General Internal Medicine 03/30/24 Ramon Samuel MD [address] [place] [address] Pulmonary and Critical Care Medicine 03/30/24 Source Comments (unrecognize d section and content) In the event this informatio n is protected by the Federal Confidentiality of Alcohol and Drug Abuse Patient Records regulations: The Federal rules restrict any use of the information to criminally investigate or prosecute any alcohol or drug abuse patient.[facility] HospitalIn the event this information is protected by the Federal Confidentiality of Alcohol and Drug Abuse Patient Records regulations: The Federal rules restrict any use of the information to criminally investigate or prosecute any alcohol or drug abuse patient.[facility] the event this information is protected by the Federal Confidentiality of Alcohol and Drug Abuse Patient Records regulations: The Federal rules restrict any use of the information to criminally investigate or prosecute any alcohol or drug abuse patient.[facility] HospitalIn the event this information is protected by the Federal Confidentiality of Alcohol and Drug Abuse Patient Records regulations: The Federal rules restrict any use of the information to criminally investigate or prosecute any alcohol or drug abuse patient.[facility] HospitalIn the event this information is protected by the Federal Confidentiality of Alcohol and Drug Abuse Patient Records regulations: The Federal rules restrict any use of the information to criminally investigate or prosecute any alcohol or drug abuse patient.[facility] HospitalIn the event this information is protected by the Federal Confidentiality of Alcohol and Drug Abuse Patient Records regulations: The Federal rules restrict any use of the information to criminally investigate or prosecute any alcohol or drug abuse patient.[facility] HospitalIn the event this information is protected by the Federal Confidentiality of Alcohol and Drug Abuse Patient Records regulations: The Federal rules restrict any use of the information to criminally investigate or prosecute any alcohol or drug abuse patient.[facility] HospitalIn the event this information is protected by the Federal Confidentiality of Alcohol and Drug Abuse Patient Records regulations: The Federal rules restrict any use of the information to criminally investigate or prosecute any alcohol or drug abuse patient.[facility] HospitalIn the event this information is protected by the Federal Confidentiality of Alcohol and Drug Abuse Patient Records regulations: The Federal rules restrict any use of the information to criminally investigate or prosecute any alcohol or drug abuse patient.[facility] HospitalIn the event this information is protected by the Federal Confidentiality of Alcohol and Drug Abuse Patient Records regulations: The Federal rules restrict any use of the information to criminally investigate or prosecute any alcohol or drug abuse patient.[facility] HospitalIn the event this information is protected by the Federal Confidentiality of Alcohol and Drug Abuse Patient Records regulations: The Federal rules restrict any use of the information to criminally investigate or prosecute any alcohol or drug abuse patient.[facility] HospitalIn the event this information is protected by the Federal Confidentiality of Alcohol and Drug Abuse Patient Records regulations: The Federal rules restrict any use of the information to criminally investigate or prosecute any alcohol or drug abuse patient.[facility] HospitalIn the event this information is protected by the Federal Confidentiality of Alcohol and Drug Abuse Patient Records regulations: The Federal rules restrict any use of the information to criminally investigate or prosecute any alcohol or drug abuse patient.[facility] HospitalIn the event this information is protected by the Federal Confidentiality of Alcohol and Drug Abuse Patient Records regulations: The Federal rules restrict any use of the information to criminally investigate or prosecute any alcohol or drug abuse patient.[facility] HospitalIn the event this information is protected by the Federal Confidentiality of Alcohol and Drug Abuse Patient Records regulations: The Federal rules restrict any use of the information to criminally investigate or prosecute any alcohol or drug abuse patient.[facility] HospitalIn the event this information is protected by the Federal Confidentiality of Alcohol and Drug Abuse Patient Records regulations: The Federal rules restrict any use of the information to criminally investigate or prosecute any alcohol or drug abuse patient.[facility] HospitalIn the event this information is protected by the Federal Confidentiality of Alcohol and Drug Abuse Patient Records regulations: The Federal rules restrict any use of the information to criminally investigate or prosecute any alcohol or drug abuse patient.[facility] HospitalIn the event this information is protected by the Federal Confidentiality of Alcohol and Drug Abuse Patient Records regulations: The Federal rules restrict any use of the information to criminally investigate or prosecute any alcohol or drug abuse patient.[facility] HospitalIn the event this information is protected by the Federal Confidentiality of Alcohol and Drug Abuse Patient Records regulations: The Federal rules restrict any use of the information to criminally investigate or prosecute any alcohol or drug abuse patient.[facility] HospitalIn the event this information is protected by the Federal Confidentiality of Alcohol and Drug Abuse Patient Records regulations: The Federal rules restrict any use of the information to criminally investigate or prosecute any alcohol or drug abuse patient.[facility] HospitalIn the event this information is protected by the Federal Confidentiality of Alcohol and Drug Abuse Patient Records regulations: The Federal rules restrict any use of the information to criminally investigate or prosecute any alcohol or drug abuse patient.[facility] the event this information is protected by the Federal Confidentiality of Alcohol and Drug Abuse Patient Records regulations: The Federal rules restrict any use of the information to criminally investigate or prosecute any alcohol or drug abuse patient.[facility] HospitalIn the event this information is protected by the Federal Confidentiality of Alcohol and Drug Abuse Patient Records regulations: The Federal rules restrict any use of the information to criminally investigate or prosecute any alcohol or drug abuse patient.[facility] HospitalIn the event this information is protected by the Federal Confidentiality of Alcohol and Drug Abuse Patient Records regulations: The Federal rules restrict any use of the information to criminally investigate or prosecute any alcohol or drug abuse patient.[facility] HospitalIn the event this information is protected by the Federal Confidentiality of Alcohol and Drug Abuse Patient Records regulations: The Federal rules restrict any use of the information to criminally investigate or prosecute any alcohol or drug abuse patient.[facility] Reason for Visit (unrecogniz ed section and content) Reason Comments Consult [facility] Specialty Diagnoses / Procedures Referred By Contac t Referred To Contact CT IMAGING Diagnoses Pleural effusion Procedures CT CHEST W IVCON DIAGNOSTIC COMPUTED TOMOGRAPHY THORAX W/[place] [address] [place] [address] Ct Imaging [place] [address] Referral ID Status Reason Start Date Expiration Date V isits Requested Visits Authorized [id number] Closed Auto-Generate d Referral 02/20/2024 03/21/2025 1 1 Reason Comments Results Reason Comments Orders Reason Comments New Patient New lung nodule on C T scan Specialty Diagnoses / Procedures Referred By Contac t Referred To Contact Pulmonary and Critical Care Medicine Diagnoses Pleural plaque Procedures CONSULT TO PULM/CRITICAL CARE OFFICE/OUTPATIENT NEW HIGH MDM 60 [place] [address] [place] [address] Referral ID Status Reason Start Date Expiration Date V isits Requested Visits Authorized [id number] Closed PCP Requested Referral 03/18/2024 03/18/2025 1 1 Reason Comments Spirometry Specialty Diagnoses / Procedures Referred By Contac t Referred To Contact [facility] Diagnoses Pleural plaque Centrilobular emphysema (HCC) Procedures SPIROMETRY WITH DILATOR IF OBSTRUCTED BRNCDILAT RSPSE SPMTRY PRE&POST-BRNCDILAT Ramon Alfonso MD [address] [place] [address] Respiratory [place] [address] [place] [address] Referral ID Status Reason Start Date Expiration Date V isits Requested Visits Authorized [id number] Closed Auto-Generate d Referral 03/30/2024 04/29/2025 1 1 Specialty Diagnoses / Procedures Referred By Contac t Referred To Contact [facility] Diagnoses Pleural plaque Centrilobular emphysema (HCC) Procedures LUNG VOLUMES Ramon Samuel MD [address] [place] [address] [address] Referral ID Status Reason Start Date Expiration Date V isits Requested Visits Authorized [id number] Closed Auto-Generate d Referral 10/28/2023 10/27/2024 1 1 Specialty Diagnoses / Procedures Referred By Contac t Referred To Contact [facility] Diagnoses Pleural plaque Centrilobular emphysema (HCC) Procedures LUNG DIFFUSION CAPACITY (DLCO) DIFFUSING CAPACITY Ramon Samuel MD [address] [place] [address] [address] Referral ID Status Reason Start Date Expiration Date V isits Requested Visits Authorized [id number] Closed Auto-Generate d Referral 03/30/2024 04/29/2025 1 1 Specialty Diagnoses / Procedures Referred By Contac t Referred To [facility] Diagnoses Pleural plaque Centrilobular emphysema (HCC) Procedures SIX MINUTE WALK CARDIOPULMONARY EXERCISE STRESS Ramon Samuel MD [address] [place] [address] Respiratory [place] [address] [place] [id number] Referral ID Status Reason Start Date Expiration Date V isits Requested Visits Authorized [id number] Closed Auto-Generate d Referral 03/30/2024 04/29/20[address] questions Reason Comments Patient Update Reason Comments Follow Up Reason Comments Results (unrecognized sect ion and content) No Status Records FoundNo Status Records Found INFORMATION SOURCE (unrecogn ized section and content) DATE CREATED AUTHOR 05/22/2025 [facility] DATE CREATED AUTHOR AUTHOR'S ORGANIZ ATION 09/09/2025 [facility] FOR RECORDS PERTAINING TO PATIENTS WHO [...] BE BASED ON THE PRIMARY CLINICAL RECORDS. [facility]. provides no warranty or guarantee of the accuracy or completeness of information in this document.
--- NOTE | 2025-09-21 09:11 | CL.D_ITS ---
Patient Name: JORGE A LINTON Study Date: 09/21/2025 Performing: Ángel Nichole MD Ht: 70 inches 177.8 cm : 1960 Wt: 150 lbs 68.04 kg Age: 65 Gender: male BSA: 1.85 PROCEDURE(S) PERFORMED DC03-(89944)LHC/COR/LV/CABG IC14-(86121/C9604)GRAFT-PADDY AND/OR PTCA, SINGLE GRAFT CLINICAL PROFILE AND INDICATIONS Indications: Suspected CAD Heart Failure: None Stress/Imaging Stress/Image Study Performed: No CAD Presentations: Other: Fatigue CONCLUSIONS Severe coronary disease with EDYTA to the posterior descending artery with high-grade anastomotic lesion. Saphenous vein graft to the ramus which is patent Presumed KNOTT to the LAD is patent RECOMMENDATIONS Referred for immediate PCI DESCRIPTION OF PROCEDURE The patient arrived to the procedure lab. The risks and benefits of the procedure as well as a full description of our services here and current unavailability of surgical backup were fully explained to the patient and/or their significant other prior to the catheterization. The Timeout was completed, verifying the correct patient and procedure. The patient's procedural site was prepped and draped in the usual fashion. Local anesthetic was given subcutaneously to right radial region with Lidocaine 2%. Using a modified Seldinger technique, arterial access was obtained via the right radial artery, a 6Fr sheath was inserted. Left Coronary Artery selective angiography was performed in multiple views using a 5 Fr. 4.0 [place] catheter. Right Coronary Artery selective angiography was then performed in multiple views using a 5 Fr. 4.0 [place] catheter. Saphenous Vein graft to the DIAG 1 selective angiography was performed in multiple views using a 5 Fr. 4.0 [place] catheter. Right internal mammary artery graft to the RCA selective angiography was performed in multiple views using a 5 Fr. IM catheter. Left Ventriculography was performed in BUSTAMANTE projection using a 5 Fr. Pigtail catheter. LV to AO pullback pressures were then recorded. CORONARY ANGIOGRAPHY DOMINANCE: Right Dominant LEFT HEART ASSESSMENT Left Ventricular Ejection Fraction: by LV Gram 60 % Normal LV wall motion Normal Left Ventricular systolic function LEFT MAIN: Mild luminal irregularities LEFT ANTERIOR DESCENDING ARTERY: Medium size vessel which appears to be subtotally occluded in the midsegment. CIRCUMFLEX ARTERY: Moderately severe disease. RIGHT CORONARY ARTERY: OSTIAL RCA: is occluded GRAFTS: Saphenous Vein graft to the Ramus is patent EDYTA graft to the Distal RCA has a distal anastomotic lesion of 90 % COMPLICATIONS PROCEDURE MEDICATIONS Fentanyl 50 mcg IV Versed 1 mg IV Versed 1 mg IV Versed 1 mg IV Baby Aspirin (81mg) 1 Tabs PO 09/21/2025 07:16:45 Brilinta 180 mg PO @ 09/21/2025 08:25:57 Heparin given IA 09/21/2025 07:55:10 Verapamil 2.5mg, Ntg 100mcgs, 3000 units of Heparin given IA 09/21/2025 07:55:10 SUMMARY OF HEMODYNAMIC DATA Time AIR REST ECG 07:14:40 Art 114/57 (79) 07:56:44 AO 104/61 (78) SA 08:02:12 LV 127/6, 16 08:14:23 LV 130/-1, 14 08:14:31 LV 108/11, 22 08:14:59 LV 99/7, 14 08:15:07 LVp 101/2, 13 08:15:14 AOp 117/52 (80) 08:15:21 Art 107/56 (77) 08:33:01 Art 140/60 (90) 08:56:10 Signed By Ángel Nichole MD On 09/21/2025 09:11:04 Ángel Nichole MD
--- NOTE | 2025-09-21 11:31 | CRPHASE1_ITS ---
Patient Communication Patient Information Former Patient:: Phase I PHII Cardiac Rehab Discussed with Patient:: Yes Guide to Cardiac Rehab Given to Patient:: Yes Cardiac Rehab Facility Choice List Given to Patient:: Yes Communication to Cardiac Rehab Choice Program [facility] CR PHII:: Communication Given to CR Continuous Process Rotary Drum Tanner:: Elmo Braxton Phase II Cardiac Rehab:: Yes Sessions:: 36 sessions - 3 days/wk, 12 weeks Cardiac Rehabilitation Info Program Information Cardiac Rehabilitation Program Information: Cardiac Rehab The cardiac rehab team at [facility] consists of highly skilled exercise physiologists, nurses, respiratory therapists and physicians working together with you. Our purpose is to help you have a full recovery and achieve the goals you set for yourself. Over the years many of our patients have returned to activities they assumed they would never do again! We can help restore your confidence and motivation to make lifestyle changes that can have a significant impact on your health and quality of life! We can help answer questions and concerns you may have about exercise, lifestyle, medications, diet, stress and anxiety which are common following a hospitalization. WE monitor ECG and vital signs during exercise and discuss your progress with you and report to your physician(s). Cardiac Rehab is proven to help reduce readmissions, improve functional capacity and lower recurrence of problems with your heart. Our Cardiac Rehab program is Certified by the [place] Association of Cardio-Vascular and Pulmonary Rehabilitation (AACVPR) and Accredited by the [place] [employer] of [employer] through our [facility]. You can contact us at . We invite you to call us with your questions or to get started in our program. If you have other questions or concerns be sure to ask your physician/provider during your follow-up visit. WE look forward to seeing you!
--- NOTE | 2025-09-21 11:32 | CRPH1.INSTRU ---
General Education Discussed with Patient CAD and cardiac anatomy and function:: Patient communicates acknowledgment Explanation of diagnoses and procedures:: Patient communicates acknowledgment Sign/Symptoms of MS:: Patient communicates acknowledgment Antiplatelet therapy: Patient communicates acknowledgment Proper use of NTG-SL: Patient communicates acknowledgment Emergency procedures and activation of EMS: Patient communicates acknowledgment Compliance of all prescribed medications: Patient communicates acknowledgment Smoking Risk Factors Patient Nicotine/Smoking Risk Factors Are:: Cigarettes Response Code Nicotine/Smoking Response Code:: Patient communicates acknowledgment Dyslipidemia Recommendations Recommendations Include:: Lipid profile provided Response Code Dyslipidemia Response Code:: Patient communicates acknowledgment Overweight/Obesity Risk Factors Patient Overweight/Obesity Risk Factors Are:: BMI Normal [18-25 & < 65 years old] Response Code Overweight/Obesity:: Patient communicates acknowledgment Hypertension Recommendations Recommendations Include:: Maintain BP <130/85 Response Code Hypertension:: Patient communicates acknowledgment Heart Disease Risk Factors Patient Heart Disease Risk Factors Are:: Previous cardiac event Response Code Heart Disease Response Code:: Patient communicates acknowledgment Diabetes Risk Factors Patient Diabetes Risk Factors Are:: No documented hx of diabetes Metabolic Syndrome Risk Factors Patient Metabolic Syndrome Risk Factors Are [3 of 5]:: Hypertension Recommendations Recommendations Include:: Reinforce compliance to risk factor modifications Response Code Metabolic Syndrome Response Code:: Patient communicates acknowledgment Sedentary Recommendations Recommendations Include:: Benefits of regular exercise Response Code Sedentary Response Code:: Patient communicates acknowledgment Stress Recommendations Recommendations Include:: Identification of stressors, and assessment of coping skills Response Code Stress Response Code:: Patient communicates acknowledgment
--- NOTE | 2025-09-21 14:53 | CL.I_ITS ---
Patient Name: JORGE A LINTON Study Date: 09/21/2025 Performing: Bear Braxton MD Ht: 70 inches 177.8 cm : 1960 Wt: 150.2 lbs 68.04 kg Age: 65 Gender: male BSA: 1.85 PROCEDURE(S) PERFORMED IC14-(27211/C9604)GRAFT-PADDY AND/OR PTCA, SINGLE GRAFT CLINICAL PROFILE AND CO-MORBIDITIES Indications: Suspected CAD Heart Failure: None Stress/Imaging Stress/Image Study Performed: No CAD Presentations: Other: Fatigue CONCLUSIONS Successful PADDY to EDYTA to RCA RECOMMENDATIONS DESCRIPTION OF PROCEDURE The patient arrived to the procedure lab. The risks and benefits of the procedure as well as a full description of our services here and current unavailability of surgical backup were fully explained to the patient and/or their significant other prior to the catheterization. The Timeout was completed, verifying the correct patient and procedure. The patient's procedural site was prepped and draped in the usual fashion. Local anesthetic was given subcutaneously to right radial region with Lidocaine 2% Using a modified Seldinger technique,arterial access was obtained via the right radial artery, a 6Fr sheath was inserted. Left Coronary Artery selective angiography was performed in multiple views using a 5 Fr. 4.0 [place] catheter. Right Coronary Artery selective angiography was then performed in multiple views using a 5 Fr. 4.0 [place] catheter. Saphenous Vein graft to the DIAG 1 selective angiography was performed in multiple views using a 5 Fr. 4.0 [place] catheter. Right internal mammary artery graft to the RCA selective angiography was performed in multiple views using a 5 Fr. IM catheter. Left Ventriculography was performed in BUSTAMANTE projection using a 5 Fr. Pigtail catheter. LV to AO pullback pressures were then recorded.The images were reviewed and options discussed. A decision was then made to proceed with an Intervention, IVUS or other adjunct procedure. JCARLOS Guide catheter was inserted and engaged into the EDYTA. {L1} BMW Guide wire was advanced to the EDYTA EMERGE 2.25 X 12 Balloon catheter was inserted. Balloon catheter was advanced across lesion in the graft to the . EDYTA PTCA balloon inflated at 6 atms for 16 secs. PTCA balloon inflated at 6 atms for 24 secs. RIN FRONTIER 2.25 X 15 Drug Eluting stent was inserted. Drug Eluting stent was advanced across the lesion in the graft to the . EDYTA Angiogram performed pre stent deployment. Angiogram performed post stent deployment. NC EMERGE 2.50 X 12 Balloon catheter was inserted post stent. Angiogram performed post balloon dilatation. NC EMERGE 2.75 X 12 Balloon catheter was inserted post stent. NC EMERGE 2.75 X 8 Balloon catheter was inserted post stent. Angiogram performed post balloon dilatation. RIN FRONTIER 3.0 X 30 Drug Eluting stent was inserted. Drug Eluting stent was advanced across the lesion in the graft to the . EDYTA NC EMERGE 2.75 X 20 Balloon catheter was inserted post stent. Angiogram performed post balloon dilatation. Angiogram performed post balloon dilatation. The arterial sheath was pulled and a TR Band was applied for hemostasis 10 ML OF AIR INTERVENTION INFORMATION LESION SITE: Other Artery > EDYTA to RCA (Mid) Segment Number: 2-Mid-right coronary artery conduit segment - mRCA , Lesion Location: Distal Lesion Complexity: High/C, chronic total occlusion: No, lesion at bifurcation: Yes, thrombus present: Yes, lesion length: 40 mm, culprit lesion: Yes, Previously treated lesion: No Pre Stenosis: 99 % Pre intervention MEG flow: 3 PROCEDURE: Drug Eluting Stent with pre and post dilatation Post Stenosis: 0 % Post intervention MEG flow: 3 Lesion Devices: [place] .014 190cm BMW [place] Straight Medtronic 6 Fr JCARLOS 90cm Guide Catheter Glenn Sci EMERGE MR 2.25x12 BALLOON [employer] 6 [place] GuideLiner Medtronic 2.25 x 15 RIN FRONTIER PADDY Glenn Sci NC EMERGE MR 2.50x12 BALLOON Glenn Sci NC EMERGE MR 2.75x08 BALLOON Medtronic 3.0 x 30 RIN FRONTIER PADDY Glenn Sci [place] EMERGE MR 2.75x20 [place]ALLOON COMPLICATIONS No Complications PROCEDURE MEDICATIONS Fentanyl 50 mcg IV Versed 1 mg IV Versed 1 mg IV Versed 1 mg IV Baby Aspirin (81mg) 1 Tabs PO 09/21/2025 07:16:45 Brilinta 180 mg PO @ 09/21/2025 08:25:57 Heparin given IA 09/21/2025 07:55:10 Heparin 5000 unit(s) IV 09/21/2025 09:38:03 Verapamil 2.5mg, Ntg 100mcgs, 3000 units of Heparin given IA 09/21/2025 07:55:10 SUMMARY OF HEMODYNAMIC DATA Time AIR REST ECG 07:14:40 Art 114/57 (79) 07:56:44 AO 104/61 (78) SA 08:02:12 LV 127/6, 16 08:14:23 LV 130/-1, 14 08:14:31 LV 108/11, 22 08:14:59 LV 99/7, 14 08:15:07 LVp 101/2, 13 08:15:14 AOp 117/52 (80) 08:15:21 Art 107/56 (77) 08:33:01 Art 140/60 (90) 08:56:10 AO 157/72 (106) 09:41:11 Signed By Bear Braxton MD On 09/21/2025 14:52:37 eBar Braxton MD
[2025-09-21] MEDS: TICAGRELOR 90 MG TABLET PO (21:58)
[2025-09-22 03:00] VITALS: PULSE 62
[2025-09-22 05:59] LABS: Hematocrit 37.5 % (40-54); Hemoglobin 12.7 g/dL (13.0-16.5); Mean Corp Hgb Conc 33.9 g/dL (32-36); Mean Corpuscular Volume 93.5 fL (80-94); Mean Platelet Vol. 10.3 fl (6.2-12.0); Platelet Count 177 K/mm3 (150-450); RBC Distribution Width CV 12.5 % (11.6-14.6); RBC Distribution Width SD 43.0 fl (35.1-43.9); Red Blood Count 4.01 M/mm3 (4.6-6.2); White Blood Count 7.1 K/mm3 (4.4-11.0)
[2025-09-22 06:01] VITALS: BP 127/72; PULSE 72; RESP 15; TEMP 36.4; O2SAT 97
[2025-09-22 06:18] LABS: AST(SGOT) 23 U/L (<=37); Alanine Aminotransfer ALT/SGPT 20 U/L (<=46); Albumin, Serum 3.9 g/dL (3.4-4.8); Alkaline Phosphatase 72 U/L (40-129); Anion Gap 10 (5-15); BUN 12 mg/dL (4-19); BUN/Creat Ratio 15.1 RATIO (10-20); Calcium,Total 8.8 mg/dL (7.6-11.0); Carbon Dioxide 24.2 mmol/L (21.0-32.0); Chloride 98 mmol/L (98-108); Estimated Creatinine Clearance 87.41 ml/min (50-250); Globulin 2.5 g/dL (2.2-4.2); Glucose 89 mg/dL (70-99); Potassium 4.2 mmol/L (3.3-5.1)
--- NOTE | 2025-09-22 07:06 | PN.CARD_ITS ---
Subjective Subjective Patient seen and evaluated. Doing well. No further issues. Underwent PCI of the EDYTA to the right coronary artery Objective Data Vital Signs: Vital Signs Temp Pulse Resp BP Pulse Ox O2 Del Method 97.5 F L 72 15 127/72 H 97 Room Air 09/22/25 06:01 09/22/25 06:01 09/22/25 06:01 09/22/25 06:01 09/22/25 06:01 09/22/25 06:01 Oxygen Delivery Method Room Air Weight: 150 lb Body Mass Index (BMI) 21.5 Lab / Micro Data 09/22/25 05:18 09/22/25 05:18 Labs: Laboratory Results - last 24 hr 09/22/25 05:18: WBC 7.1, RBC 4.01 L, Hgb 12.7 L, Hct 37.5 L, MCV 93.5, MCH 31.7, MCHC 33.9, RDW Std Deviation 43.0, RDW Coeff of Murphy 12.5, Plt Count 177, MPV 10.3, Sodium 132 L, Potassium 4.2, Chloride 98, Carbon Dioxide 24.2, Anion Gap 10, BUN 12, Creatinine 0.78, Estim Creat Clear Calc 87.41, Est GFR (MDRD) Non-Af 98, BUN/Creatinine Ratio 15.1, Glucose 89, Calcium 8.8, Total Bilirubin 0.55, AST 23, ALT 20, Alkaline Phosphatase 72, Total Protein 6.3, Albumin 3.9, Globulin 2.5, Albumin/Globulin Ratio 1.6 Cardiology Labs/Tests 09/22/25 05:18: WBC 7.1, RBC 4.01 L, Hgb 12.7 L, Hct 37.5 L, MCV 93.5, MCH 31.7, MCHC 33.9, Plt Count 177, MPV 10.3, Sodium 132 L, Potassium 4.2, Chloride 98, Carbon Dioxide 24.2, Anion Gap 10, BUN 12, Creatinine 0.78, Est GFR (MDRD) Non- Af 98, BUN/Creatinine Ratio 15.1, Glucose 89, Calcium 8.8, Total Bilirubin 0.55 Rhythm: EKG: ECHO: Stress Test: Cardiac Cath: PCI: CT Surgery: Holter monitor: EPS: PPM: CXR: Chest CT Scan: Physical Exam Const alert and oriented x3 Orientation / Consciousness: awake HEENT normocephalic Neck Carotids: normal carotid upstroke Chest Chest: midline sternotomy incision Cardio regular rate and regular rhythm GI normal to inspection, nondistended, normoactive bowel sounds Extremity no clubbing, cyanosis or edema Assessment & Plan Assessment/Plan (1) Status post percutaneous coronary intervention (PCI): PLAN: Patient is status post PCI and stenting of the radial artery to the right coronary artery yesterday. Patient is doing well. Will be discharged for outpatient follow-up.
[2025-09-22 08:32] VITALS: BP 152/77; PULSE 65; RESP 16; TEMP 36.7; O2SAT 98
[2025-09-22] MEDS: Aspirin E.C. 81 MG Tablet PO (08:36)
[2025-09-22] MEDS: TICAGRELOR 90 MG TABLET PO (08:36)
--- NOTE | 2025-09-22 09:31 | CASEMGMT ---
AMRIK LEHMAN note: Discharge order is in. Rx for Brilinta has been sent to [facility] retail pharmacy. Per pharmacy, this has been billed through his insurance. Cost is $195.20 for a 90-day supply and pt has a remaining deductible of $350. They state they have a barrow gage for Brilinta for $120 for a 90-day supply. Pt and made aware. They would like to pay barrow gage for the Brilinta instead of having it billed through his insurance. Pt and would like to roll picker the Brilinta in the pharmacy on their way out the door instead of having it delivered to room. Call to the pharmacy and they were made aware. July CHRISTIANSEN RN CM
--- NOTE | 2025-09-22 10:00 | EKG12_ITS ---
Test Reason : AM EKG Blood Pressure : */* mmHG Vent. Rate : 69 BPM Atrial Rate : 69 BPM P-R Int : 182 ms QRS Dur : 94 ms QT Int : 388 ms P-R-T Axes : 64 61 9 degrees QTcB Int : 415 ms Normal sinus rhythm Normal ECG When compared with ECG of 31-Aug-2025 09:34, T wave amplitude has increased in Lateral leads Confirmed by EDE RODRIGUEZ, ÁNGEL ([id number]), web editor JANES LUDWIG ([id number]) on 09/22/2025 1:57:33 PM Referred By: Ángel Nichole Confirmed By: ÁNGEL NICHOLE MD
== END 2025-09-22 09:46 | disposition home or self-care (01) ==
LOC: PCU 10:41
PROVIDERS: Specialist; Admitting Provider Internal Medicine Cardiovascular Disease; PCP Internal Medicine; Referring Provider Internal Medicine Cardiovascular Disease; Visit Provider Internal Medicine Cardiovascular Disease
DX: I25.10 Atherosclerotic heart disease of native coronary artery without angina pectoris (principal); Z95.1 Presence of aortocoronary bypass graft; I10 Essential (primary) hypertension; E78.5 Hyperlipidemia, unspecified; I73.9 Peripheral vascular disease, unspecified; Z77.090 Contact with and (suspected) exposure to asbestos; R06.02 Shortness of breath; Z79.82 Long term (current) use of aspirin; Z79.899 Other long term (current) drug therapy; R94.31 Abnormal electrocardiogram [ECG] [EKG]; Z82.49 Family history of ischemic heart disease and other diseases of the circulatory system; Z87.891 Personal history of nicotine dependence; R42 Dizziness and giddiness; R53.83 Other fatigue
CPT/HCPCS: 36415; 80053; 85027; 92937; 93005; 93459; 99152; 99153; 99221; C1769; Q9967; C1725; C1874; C1887; C1894; C9604; G0378

== ENCOUNTER → 2025-10-26 | Outpatient (CLI) | payer OTHER, SELFPAY | END | disposition home or self-care (01) | LOC: LABSPEC 10:19 | PROVIDERS: PCP Internal Medicine; Referring Provider Internal Medicine; Visit Provider Internal Medicine | DX: E87.1 Hypo-osmolality and hyponatremia (principal) | CPT/HCPCS: 84295 ==

== ENCOUNTER → 2025-10-27 | Outpatient (CLI) | payer OTHER, SELFPAY | END | disposition home or self-care (01) | PROVIDERS: PCP Internal Medicine; Referring Provider Internal Medicine; Visit Provider Internal Medicine | DX: E87.1 Hypo-osmolality and hyponatremia (principal) | CPT/HCPCS: 36415; 84295 ==